=== PATIENT | male | born 1960 | race Caucasian/White ===

== ENCOUNTER → 2016-12-01 | Outpatient (CLI) | payer OTHER ==
[~2016-12-01] MED LIST: ACET-1256 PO; ACET1TAB84 PO; ACT30 PO; AMLO-110 PO; AMT10 PO; ASPI-435 PO; ATR25 PO; BACL10TA PO; CALC-20 PO; CEPH500C2 PO; CLC100 PO; CRS/10 PO; DIPH50TA10 PO; FEXO1TAB49 PO; FLUO20CA35 PO; FLUO40CA8 PO; FLUT0.15 NAE; GABA1CAP4 PO; GLC850 PO; GUAI1TAB55 PO; INDA1TAB3 PO; KETO10TA PO; LACT12LO28 TOP; LIRA18IN INJ; LISI40TA PO; LOSA1TAB38 PO; LRS10 PO; LVNIS30 SQ; LVNIS40 SQ; MELO7.5T5 PO; META1TAB22 PO; METO50TA16 PO; MODA1TAB PO; MRLP17X PO; MULT-506 PO; NASAL SPRAY NAE; NRV5 PO; NZRSHM TOP; ONDA4TAB46 PO; OXYC1TAB3 PO; OXYSR/10 PO; PRED10TA PO; PRT40 PO; RXC5 PO; SENN-65 PO
[2016-12-01 13:14] LABS: ALT/SGPT 29 U/L (12-78); AST/SGOT 18 U/L (15-37); BLOOD UREA NITROGEN 16 mg/dl (7-18); BUN/CREATININE RATIO 15.8 (10-20); CALCIUM 8.7 mg/dl (8.5-10.1); CARBON DIOXIDE 24 mmol/L (21-32); CHLORIDE 105 mmol/L (98-107); CREATININE 0.99 mg/dl (0.60-1.40); GLUCOSE 124 mg/dl (70-99); POTASSIUM 4.2 mmol/L (3.5-5.1); SODIUM 139 mmol/L (136-145)
[2016-12-01 13:16] LABS: ALB/GLOB RATIO 1.1 (0.9-2); ALKALINE PHOSPHATASE 138 U/L (45-117); C-REACTIVE PROTEIN < 0.29 mg/dl (0-0.29)
[2016-12-01 14:28] LABS: BASO % 0.4 %; BASO ABS # 0.02 K/uL (0-0.2); COMPLETE YES; EOS % 1.8 %; HEMATOCRIT 38.2 % (42-52); IG% 0.4 %; LYMPH % 29.4 %; LYMPH ABS # 1.48 K/uL (1.2-3.4); MEAN CELL VOLUME 79.4 fL (80-100); MEAN CORPUSCULAR HEMOGLOBIN 26.2 pg (25-34); MEAN PLATELET VOLUME 11.3 fL (7.4-10.4); MONO % 9.3 %; NEUT % 58.7 %; PLATELET COUNT 202 K/uL (130-400); RED BLOOD COUNT 4.81 M/uL (4.7-6.1); WHITE BLOOD COUNT 5.03 K/uL (4.8-10.8)
== END | disposition home or self-care (01) ==
LOC: C.LAB1850 11:55
PROVIDERS: ATTEND Internal Medicine Infectious Disease
DX: A49.01 Methicillin susceptible Staphylococcus aureus infection, unspecified site (principal); E11.8 Type 2 diabetes mellitus with unspecified complications

== ENCOUNTER → 2017-04-01 | Outpatient (CLI) | payer OTHER ==
[~2017-04-01] MED LIST changes: +AMLO-114 PO; +AMPH1TAB58 PO; +AMPH20CA3 PO; +AMT/25 PO; +ASPCH81X PO; +CALC-393 PO; +DEXT30TA7 PO; +GABA1CAP5 PO; +HYDR25CA PO; +IPRA0.03 NAE; +LACT12CR TOP; +LIRA18IN SC; +LISI-794 PO; +LRS20 PO; +METF-383 PO; +MULTIVITAMIN PO; +ROSU20TA PO
== END | disposition home or self-care (01) ==
LOC: C.RDSM 12:05
PROVIDERS: ATTEND Physical Medicine & Rehabilitation Sports Medicine
DX: Z98.890 Other specified postprocedural states (principal); M25.562 Pain in left knee

== ENCOUNTER 2017-05-10 05:24 | Observation (INO) | payer OTHER ==
[2017-04-22 11:25] VITALS: BMI 37.0
--- NOTE | 2017-04-22 12:03 | PAT Medication Instructions ---
Service Date Apr 22, 2017. Current Home Medication List Acetaminophen (Tylenol), 1,000 MG PO DIRECTED PRN for Headache Acetaminophen (Tylenol Arthritis Ext Rel), 1,300 MG PO HS PRN for RN Amitriptyline HCl (Amitriptyline HCl), 20 MG PO HS Amlodipine (Norvasc), 5 MG PO QPM Aspirin (Aspirin 81), 81 MG PO HS Baclofen (Lioresal), 30 MG PO HS Calcium Carbonate-Vitamin D (Calcium 600 + D), 1 TAB PO QAM Cephalexin Monohydrate (Keflex), 500 MG PO QAM Diphenhydramine Hcl (Sleep) (Diphenhydramine Hcl), 1 TAB PO HS PRN for PRN Fexofenadine Hcl (Carmen Allergy), 180 MG PO QPM Fluoxetine (Prozac), 20 MG PO QAM Fluoxetine (Prozac), 40 MG PO NOON Fluticasone Propionate (Nasal) (Flonase Allergy Relief), 2 SPRAYS LULU HS Gabapentin (Gabapentin), 300 MG PO TID Indapamide (Lozol), 1.25 MG PO QPM Ketoconazole (Ketoconazole), 1 APPL TOP 2XWK Lactic Acid (Ammonium Lactate) (Ammonium Lactate), 1 DOSE TOP QAM PRN for RN Liraglutide (Victoza), 1.2 MG INJ QAM Lisinopril (Zestril), 40 MG PO HS Meloxicam (Mobic), 7.5 MG PO AM/HS Metaxalone (Skelaxin), 800 MG PO QAM Metaxalone (Skelaxin), 1,600 MG PO NOON Metformin Hcl (Glucophage *), 850 MG PO AM/NOON Metoprolol Tartrate (Lopressor) (Lopressor), 50 MG PO AM/NOON Modafinil (Provigil), 200 MG PO AM/NOON Multivitamin (Multivitamin), 1 TAB PO QAM Ondansetron Hcl (Zofran), 4 MG PO Q6H PRN for Nausea Oxycodone HCl (Oxycontin), 10 MG PO AM/HS Oxycodone Ir (Roxicodone Ir), 5-10 MG PO QID PRN for RN Pioglitazone (Actos), 30 MG PO QAM Rosuvastatin Calcium (Crestor), 10 MG PO QPM Senna/Docusate Sod (Senokot S), 1 TAB PO QPM [Nasal [place]], 2 SPRAYS LULU TIDM Medication Instructions For Your Scheduled Surgery - Hold the following medications 48 hours prior to surgery: Metformin Hcl (Glucophage *), 850 MG PO AM/NOON - Hold the following medications 24 hours prior to surgery: Lisinopril (Zestril), 40 MG PO HS Ketoconazole (Ketoconazole), 1 APPL TOP 2XWK Lactic Acid (Ammonium Lactate) (Ammonium Lactate), 1 DOSE TOP QAM PRN - Hold the following medications the morning of surgery: Metaxalone (Skelaxin), 800 MG PO QAM Modafinil (Provigil), 200 MG PO AM/NOON Multivitamin (Multivitamin), 1 TAB PO QAM Pioglitazone (Actos), 30 MG PO QAM Meloxicam (Mobic), 7.5 MG PO AM/HS (otherwise okay to continue per surgeon) Calcium Carbonate-Vitamin D (Calcium 600 + D), 1 TAB PO QAM Cephalexin Monohydrate (Keflex), 500 MG PO QAM - Take the following medications the morning of surgery with a sip of water OTHERWISE NOTHING TO EAT OR DRINK AFTER MIDNIGHT: [Nasal [place]], 2 SPRAYS LULU TIDM Gabapentin (Gabapentin), 300 MG PO TID Acetaminophen (Tylenol), 1,000 MG PO DIRECTED PRN (may take if needed up to 4 hours prior to surgery) Acetaminophen (Tylenol Arthritis Ext Rel), 1,300 MG PO HS PRN (may take if needed up to 4 hours prior to surgery) Oxycodone HCl (Oxycontin), 10 MG PO AM/HS (may take if needed up to 4 hours prior to surgery) Oxycodone Ir (Roxicodone Ir), 5-10 MG PO QID PRN (may take if needed up to 4 hours prior to surgery) Liraglutide (Victoza), 1.2 MG INJ QAM Fluoxetine (Prozac), 20 MG PO QAM Metoprolol Tartrate (Lopressor) (Lopressor), 50 MG PO AM/NOON Ondansetron Hcl (Zofran), 4 MG PO Q6H PRN for Nausea - Take the following medications as scheduled the night before surgery: [Nasal [place]], 2 SPRAYS LULU TIDM Amlodipine (Norvasc), 5 MG PO QPM Aspirin (Aspirin 81), 81 MG PO HS Baclofen (Lioresal), 30 MG PO HS Gabapentin (Gabapentin), 300 MG PO TID Rosuvastatin Calcium (Crestor), 10 MG PO QPM Senna/Docusate Sod (Senokot S), 1 TAB PO QPM Acetaminophen (Tylenol), 1,000 MG PO DIRECTED PRN Acetaminophen (Tylenol Arthritis Ext Rel), 1,300 MG PO HS PRN Oxycodone HCl (Oxycontin), 10 MG PO AM/HS Oxycodone Ir (Roxicodone Ir), 5-10 MG PO QID PRN Diphenhydramine Hcl (Sleep) (Diphenhydramine Hcl), 1 TAB PO HS PRN for PRN Fexofenadine Hcl (Carmen Allergy), 180 MG PO QPM Amitriptyline HCl (Amitriptyline HCl), 20 MG PO HS Indapamide (Lozol), 1.25 MG PO QPM Fluticasone Propionate (Nasal) (Flonase Allergy Relief), 2 SPRAYS LULU HS Meloxicam (Mobic), 7.5 MG PO AM/HS If you have any questions please call us at [phone] or [phone] or [phone]
[2017-04-22 12:27] LABS: BASO % 0.2 %; BASO ABS # 0.01 K/uL (0-0.2); COMPLETE YES; EOS % 1.8 %; HEMATOCRIT 38.7 % (42-52); IG% 0.2 %; LYMPH % 24.7 %; LYMPH ABS # 1.12 K/uL (1.2-3.4); MEAN CELL VOLUME 84.7 fL (80-100); MEAN CORPUSCULAR HEMOGLOBIN 26.7 pg (25-34); MEAN CORPUSCULAR HGB CONC 31.5 g/dl (32-36); MEAN PLATELET VOLUME 11.2 fL (7.4-10.4); MONO % 8.6 %; NEUT % 64.5 %; PLATELET COUNT 164 K/uL (130-400); RED BLOOD COUNT 4.57 M/uL (4.7-6.1); WHITE BLOOD COUNT 4.54 K/uL (4.8-10.8)
[2017-04-22 12:43] LABS: BUN/CREATININE RATIO 15.8 (10-20); CALCIUM 9.1 mg/dl (8.5-10.1); CREATININE 1.2 mg/dl (0.60-1.40); POTASSIUM 4.6 mmol/L (3.5-5.1)
--- NOTE | 2017-05-05 15:17 | History and Physical ---
History & Physical Date & Time of Service: May 05, 2017 at 15:02 Chief Complaint: Left Tibia Retained Chary Primary Care Physician: Rich Otoole III, M.D. History of Present Illness Source: patient The patient is a pleasant 56-year-old male who has been followed by Dr. Rodriguez for his left knee. He is currently treated for DJD of his left knee. He does have a history of septic arthritis in that left knee in which she underwent an irrigation and debridement for an 2016. Prior to that he had undergone a high tibial osteotomy and subsequent postoperative infection of his left lower extremity. Due to his history of septic arthritis and having the retained hardware he's been on chronic antibiotics for prophylaxis. Currently he is on Keflex daily. He was told by infectious disease that he would need to be on antibiotics daily as long as the hardware was in place. He is interested in the future if possibly undergoing a total knee arthroplasty of his left knee. At this time he is interested in removing the hardware of his left knee. He also has been treated in the past for right knee DJD with corticosteroid injections and viscosupplementation. He denies any significant pain in his left knee or limitations with range of motion currently. He would like to pursue the hardware removal to get off the chronic antibiotics and also in preparation for a total knee arthroplasty if ever needed in the future. He is scheduled for hardware removal of his left knee with Dr. Rodriguez on 2016 at the [facility]. Past Medical/Surgical History Medical Problems: (1) Anxiety Status: Chronic (2) Diabetes Status: Chronic (3) Hyperlipidemia Status: Chronic (4) Hypertension Status: Chronic (5) Osteoporosis Status: Chronic (6) Sleep apnea - with CPAP machine Status: Chronic 7. Osteoarthritis 8. Spine problems with his neck, upper back, and lower back. 9. Ichthyosis Surgical Problems: (1) History of arthroplasty Status: Resolved (2) History of carpal tunnel release Status: Resolved (3) History of knee surgery - s/p high tibial osteotomy left knee, s/p I&D left knee for infection Status: Resolved (4) Status post hip surgery Status: Resolved Family History FH: diabetes mellitus High cholesterol Social History Smoking Status: Former Smoker Alcohol Use: occasionally (2 drinks per week) Drug Use: none Marital Status: Housing status: lives alone, other Occupational Status: disabled Immunizations History of Influenza Vaccine: Yes Influenza Vaccine Date: Aug 03, 2012 History of Tetanus Vaccine?: Yes Tetanus Immunization Date: March 02, 2006 History of Pneumococcal: No History of Hepatitis B Vaccine: Unknown Hepatitis Immunization Date: March 02, 2000 Multi-Drug Resistant Organisms History of MDRO: No Allergies Coded Allergies: Simvastatin (Verified Allergy, Unknown, MUSCLE WEAKNESS,TINGLING, 04/22/17) Home Medications Scheduled Amitriptyline HCl (Amitriptyline HCl), 20 MG PO HS Amlodipine (Norvasc), 5 MG PO QPM Aspirin (Aspirin 81), 81 MG PO HS Baclofen (Lioresal), 30 MG PO HS Calcium Carbonate-Vitamin D (Calcium 600 + D), 1 TAB PO QAM Cephalexin Monohydrate (Keflex), 500 MG PO QAM Fexofenadine Hcl (Carmen Allergy), 180 MG PO QPM Fluoxetine (Prozac), 20 MG PO QAM Fluoxetine (Prozac), 40 MG PO NOON Fluticasone Propionate (Nasal) (Flonase Allergy Relief), 2 SPRAYS LULU HS Gabapentin (Gabapentin), 300 MG PO TID Indapamide (Lozol), 1.25 MG PO QPM Ketoconazole (Ketoconazole), 1 APPL TOP 2XWK Liraglutide (Victoza), 1.2 MG INJ QAM Lisinopril (Zestril), 40 MG PO HS Meloxicam (Mobic), 7.5 MG PO AM/HS Metaxalone (Skelaxin), 800 MG PO QAM Metaxalone (Skelaxin), 1,600 MG PO NOON Metformin Hcl (Glucophage *), 850 MG PO AM/NOON Metoprolol Tartrate (Lopressor) (Lopressor), 50 MG PO AM/NOON Modafinil (Provigil), 200 MG PO AM/NOON Multivitamin (Multivitamin), 1 TAB PO QAM Oxycodone HCl (Oxycontin), 10 MG PO AM/HS Pioglitazone (Actos), 30 MG PO QAM Rosuvastatin Calcium (Crestor), 10 MG PO QPM Senna/Docusate Sod (Senokot S), 1 TAB PO QPM [Nasal [place]], 2 SPRAYS LULU TIDM Scheduled PRN Acetaminophen (Tylenol), 1,000 MG PO DIRECTED PRN for Headache Acetaminophen (Tylenol Arthritis Ext Rel), 1,300 MG PO HS PRN for RN Diphenhydramine Hcl (Sleep) (Diphenhydramine Hcl), 1 TAB PO HS PRN for PRN Lactic Acid (Ammonium Lactate) (Ammonium Lactate), 1 DOSE TOP QAM PRN for RN Ondansetron Hcl (Zofran), 4 MG PO Q6H PRN for Nausea Oxycodone Ir (Roxicodone Ir), 5-10 MG PO QID PRN for program director group work of Systems Constitutional: No fever, No chills, No weight loss, No fatigue Eyes: No worsening of vision, No redness ENT: No hearing loss, No sore throat, No tinnitus Respiratory: No cough, No sputum, No wheezing, No shortness of breath, No dyspnea on exertion Cardiovascular: No chest pain, No edema, No palpitations Abdomen: No pain, No nausea, No vomiting, No diarrhea, No constipation Musculoskeletal: + joint pain, No swelling, No calf pain Genitourinary - Male: No hematuria, No dysuria, No urinary frequency, No urinary urgency, No urinary retention Neurologic: No memory loss, No numbness/tingling, No balance problems Psychiatric: + anxiety, No depression symptoms Hematologic / Lymphatic: No abnormal bleeding/bruising, No clotting problems Integumentary: + problem reported (ichthyosis), No rash, No itch Allergic / Immunologic: No environmental allergies, No seasonal allergies, No poor healing Physical Exam General Appearance: WD/WN, no apparent distress Head: normocephalic, atraumatic Eyes: normal inspection, PERRL, EOMI, sclerae normal ENT: normal ENT inspection, hearing grossly normal, TMs normal, pharynx normal Neck: supple, no adenopathy, no carotid bruits, trachea midline Respiratory/Chest: chest non-tender, lungs clear, normal breath sounds, no respiratory distress, no accessory muscle use Cardiovascular: regular rate, rhythm, no edema, no murmur, normal peripheral pulses Abdomen/GI: normal bowel sounds, non tender, soft Back: normal range of motion Extremities/Musculoskelatal: normal inspection, no calf tenderness, normal capillary refill, no pedal edema, normal range of motion, non-tender, + pertinent finding (he is able to independently do a straight leg raise of his left lower extremity. There is no effusion or tenderness about his knee. His anterior medial left knee incision is well-healed. Ligamentously, the knee is stable. Range of motion of his left knee is 0/5/125.) Neurologic/Psych: no motor/sensory deficits, alert, normal mood/affect, oriented x 3 Skin: normal color, warm/dry, no rash, + pertinent finding (some dry, scaly skin from ichthyosis present. Surgical site uninvolved.) Diagnostics Laboratory Results 04/22/17 12:02 Red Blood Count 4.57, Mean Corpuscular Volume 84.7, Mean Corpuscular Hemoglobin 26.7, Mean Corpuscular Hemoglobin Concent 31.5, Mean Platelet Volume 11.2, Neutrophils (%) (Auto) 64.5, Lymphocytes (%) (Auto) 24.7, Monocytes (%) (Auto) 8.6, Eosinophils (%) (Auto) 1.8, Basophils (%) (Auto) 0.2, Neutrophils # (Auto) 2.93, Lymphocytes # (Auto) 1.12, Monocytes # (Auto) 0.39, Eosinophils # (Auto) 0.08, Basophils # (Auto) 0.01 04/22/17 12:02 Test 04/22/17 12:02 White Blood Count 4.54 K/uL (4.8-10.8) Red Blood Count 4.57 M/uL (4.7-6.1) Hemoglobin 12.2 g/dL (14.0-18.0) Hematocrit 38.7 % (42-52) Mean Corpuscular Volume 84.7 fL (80-100) Mean Corpuscular Hemoglobin 26.7 pg (25-34) Mean Corpuscular Hemoglobin Concent 31.5 g/dl (32-36) Platelet Count 164 K/uL (130-400) Mean Platelet Volume 11.2 fL (7.4-10.4) Neutrophils (%) (Auto) 64.5 % Lymphocytes (%) (Auto) 24.7 % Monocytes (%) (Auto) 8.6 % Eosinophils (%) (Auto) 1.8 % Basophils (%) (Auto) 0.2 % Neutrophils # (Auto) 2.93 K/uL (1.4-6.5) Lymphocytes # (Auto) 1.12 K/uL (1.2-3.4) Monocytes # (Auto) 0.39 K/uL (0.11-0.59) Eosinophils # (Auto) 0.08 K/uL (0-0.5) Basophils # (Auto) 0.01 K/uL (0-0.2) RDW Standard Deviation 45.1 fL (36.4-46.3) RDW Coefficient of Variation 14.5 % (11.5-14.5) Immature Granulocyte % (Auto) 0.2 % Immature Granulocyte # (Auto) 0.01 K/uL (0.00-0.02) Anion Gap 7.0 mmol/L (3-11) Est Creatinine Clear Calc Drug Dose 80.6 ml/min Estimated GFR () 77.9 Estimated GFR (Non- 67.2 BUN/Creatinine Ratio 15.8 (10-20) Calcium Level 9.1 mg/dl (8.5-10.1) EKG Normal sinus rhythm, possible left atrial enlargement-EKG done on 06/30/2016 Impression Assessment and Plan Assessment: Status post high tibial osteotomy with postoperative infection and septic arthritis of the left knee, retained hardware left knee. Plan: Patient would like to proceed with hardware removal of his left knee. He is currently scheduled with Dr. Rodriguez on 05/10/2017 for hardware removal of his left knee. He will be admitted postoperatively for 1 night stay. Risks and complications were explained to the patient and include but are not limited to infection, pain, bleeding, scarring, nerve and blood vessel damage, incomplete relief of symptoms, weakness, stiffness, wound problems, hardware failure, loosening, fracture, inability to get all of the hardware out, blood clots, embolisms, heart attack, stroke, . We'll take intraoperative cultures and treat with antibiotics appropriately pending those culture results postoperatively. We will hold preoperative antibiotics and give one instructed by Dr. Rodriguez. We will allow him to partial weight-bear on his left lower extremity after surgery. He will bring his [place] crutches to the hospital as he was given a prescription for a new ones at a preoperative appointment. We will use Lovenox 30 mg subcutaneous twice a day 14 days postoperatively for DVT prophylaxis. He will follow up with Dr. Rodriguez 10-14 days after surgery for suture removal. We will give pain medication appropriately upon his discharge from the hospital. We will pay close attention to his medication regimen during his inpatient stay. He will most likely be able to return home after surgery although he may require [facility] home [facility]. If he is unable to return home he will need a inpatient rehabilitation stay. All questions were answered and he was informed to call with any further problems, questions, or concerns. Level of Care Med/Surg Resuscitation Status FULL RESUSCITATION VTE Prophylaxis Given or contraindicated: Enoxaparin (Lovenox)SQ, T.E.D. Stockings
[~2017-05-10] VITALS: Ht 170.2 cm; Wt 102.8 kg
[2017-05-10] VITALS (9 sets, daily range): BP systolic 121–145; BP diastolic 65–90; PULSE 67–89; TEMP 36.4–36.8; O2SAT 93–97; Ht 170.2 cm; Wt 102.8 kg
[~2017-05-10 05:24] MED LIST changes: -AMLO-114 PO; -AMPH1TAB58 PO; -AMPH20CA3 PO; -AMT/25 PO; -ASPCH81X PO; -ATR25 PO; -CALC-393 PO; -CLC100 PO; -DEXT30TA7 PO; -GABA1CAP5 PO; -GUAI1TAB55 PO; -HYDR25CA PO; -IPRA0.03 NAE; -KETO10TA PO; -LACT12CR TOP; -LIRA18IN SC; -LISI-794 PO; -LOSA1TAB38 PO; -LRS10 PO; -LRS20 PO; -LVNIS30 SQ; -LVNIS40 SQ; -METF-383 PO; -MRLP17X PO; -MULTIVITAMIN PO; -NRV5 PO; -PRED10TA PO; -PRT40 PO; -ROSU20TA PO; -RXC5 PO
[2017-05-10] MEDS ORDERED: LACTATED RINGER'S 1000ML 1,000 ML IV SCH ×2 (06:00)
[2017-05-10] MEDS ORDERED: LACTATED RINGER'S 1000ML 500 ML IV ONE (06:00)
[2017-05-10] MEDS ORDERED: CEFAZOLIN IV 2,000 MG/60 ML D5W IV ONE ×3 (06:00→16:00)
[2017-05-10] MEDS ORDERED: BUPIVACAINE 0.5 % 5 MG/1 ML PF 10ML VIAL ONE (06:22)
[2017-05-10] MEDS ORDERED: BUPIVACAINE 0.25% 30 ML VIAL ONE (06:22)
[2017-05-10] MEDS ORDERED: MIDAZOLAM HCL 1 MG/ML 2ML VIAL ONE ×2 (06:37)
[2017-05-10] MEDS ORDERED: FENTANYL CITRATE INJ 50 MCG/1 ML 2 ML VIAL ONE (06:38)
--- NOTE | 2017-05-10 06:45 | History & Physical Bridge Note ---
H&P Re-Evaluation Bridge Note: I have examined the patient, reviewed the History & Physical and in the interval since the performance of the History & Physical I have noted the following changes of clinical significance: No changes noted
[2017-05-10] MEDS ORDERED: POVIDONE-IODINE OP SOLN 30 ML BTL ONE (06:50)
[2017-05-10] MEDS ORDERED: LIDOCAINE/EPINEPHRINE 1% 20 ML VIAL ONE (07:08)
[2017-05-10] MEDS ORDERED: BUPIVACAINE/EPINEPHRINE 0.5% MPF 1:200,000 10 ML VIAL ONE ×2 (07:09→07:10)
[2017-05-10] MEDS ORDERED: FENTANYL CITRATE INJ 50 MCG/1 ML 2 ML VIAL IV PRN (08:30)
[2017-05-10] MEDS ORDERED: ATROPINE SULFATE 0.1 MG/ML 5ML SYR IV PRN (08:30)
[2017-05-10] MEDS ORDERED: ONDANSETRON INJ 2 MG/ML 2 ML VIAL IV PRN ×2 (08:30→09:15)
[2017-05-10] MEDS ORDERED: EpHEDrine SULFATE INJ 50 MG/ML AMP IV PRN (08:30)
--- NOTE | 2017-05-10 08:58 | DIAGNOSTIC IMAGING REPORT ---
LEFT KNEE 1 OR 2 VIEWS CLINICAL HISTORY: LT HARDWARE REMOVAL hardware removal COMPARISON: None. DISCUSSION: Anatomic alignment status post hardware removal. No significant residual metallic components IMPRESSION: Hardware removal of left knee. Electronically signed by: Osman Fontaine M.D. 05/10/2017 8:56 AM Dictated Date/Time: 05/10/2017 8:56 AM
--- NOTE | 2017-05-10 09:12 | [facility] Operative Report ---
Operative Report Operative Date May 10, 2017. Pre-Operative Diagnosis Status post high tibial osteotomy with postoperative infection and septic arthrtis of the left knee, retained hardware Post-Operative Diagnosis same Procedure(s) Performed Left Tibial plate Removal Surgeon Dr. Fercho Rodriguez Cemetery Warden Surgeon(s) Tamica Hoskins PA-c and Dr. Maya Chinchilla(fellow) Estimated Blood Loss 100 ml Findings Healed osteotomy Specimens Microbiology #1 Left tibial plate-gram stain, anaerobic aerobic and routine culture and sentivity out of room at 0748 #2 Left tibial bone- gram stain, anaerobic, aerobic and routine culturea nd sensitivity out of room at 0805 #3 Left tibial lateral hardware, gram stain, anaerobic, aerobic and routine culturea nd sensitivity out of room at 0835 hold all periprosthetic cultures for 2 week and do not combine . lab informed of request at 0825 periprosthetic Specimen A: Explanted hardware, Left tibial plate and screws Drains 1 Anesthesia spinal with IV sedation and peripheral nerve block Complication(s) None Indications The patient's 56-year-old male who is status post a left knee proximal tibial osteotomy. This was initially complicated with nonunion and later with infection and delayed wound healing. This required revision of the plate and bone grafting after the infection had been cured. He subsequently did well until last year when he developed spontaneous septic arthritis of his left knee. He has been treated for that with a irrigation debridement and is on chronic antibiotic therapy. He is taken back to surgery for elective removal of the tibial plate and screws in an effort to remove any further sources of infection and also prepare for potential total knee arthroplasty in the future Description of Procedure The patient was identified as Rich CARSON. He identified the operative site the left knee. I marked with my initials. Surgical timeout was performed. He received a preoperative dose of intravenous antibiotics. He was taken to the operating room positioned supine on the OR table with a tourniquet on the left thigh. Examination under anesthesia revealed trace MCL laxity. The knee was otherwise stable he did not have an effusion. There was a large anterior incision present. Range of motion was from 0-125. He had some minor violations of the skin secondary to his scaly skin condition. The left leg was prepped and draped in the usual sterile fashion fluoroscopic guidance was utilized as necessary. DVT prophylaxis intraoperatively with foot pumps postoperatively with early mobility and Lovenox. The procedure began by exsanguinating the limb with the Esmarch tourniquet inflated to 250 mmHg. The prior midline incision was utilized beginning at about the midportion of the patella and extending to the distal portion of the tibial plate. The patellar tendon was identified proximally and a incision was made just over the medial border of the patella and medial patellar tendon and then full-thickness down onto the proximal tibia. The's skin and subcutaneous tissues which were extensively scarred were elevated up in 1 large flap medially. The plate was identified and dissected out. Cultures were obtained on the superficial surface of the plate. The screws were easily removed followed by the plate. Separate culture was taken of the screw holes and of the deep surface of the plate bone interface. Screw holes were curettaged and the area thoroughly debrided with a rongeur and curet. Some fibrinous material was noted however there is no purulence the bone appeared to be completely healed there is no notably soft bone. Accessory incision was made under fluoroscopic guidance laterally. The skin was incised blunt dissection performed to the subcutaneous tissues. The other screw laterally was identified deep to the anterior compartment fascia widely dissected out and then easily removed with its washer. The same type of debridement was performed laterally involving the screw hole. The screw holes and plate area were then irrigated with Betadine lavage. The tourniquet was let down after approximately 50 minutes of inflation. The lateral incision was closed with 2-0 Vicryl and 3-0 nylon on the skin. A drain was inserted deep on the medial side after obtaining hemostasis using electrocautery. The deep space which was an extensively dense scar tissue layer was closed with interrupted 0 Vicryls. The skin was then closed with 20 and 3-0 nylon sutures using 4 near near far type stitches and simple sutures as appropriate. The leg was cleaned with wet and dry sponges a soft sterile dressing was applied along the full length Darrin wrap. Patient was awakened from anesthesia without difficulty taken to the recovery room in stable condition. A culture was also obtained of the lateral screw hole. All cultures were sent for periprosthetic joint culture hold for 2 weeks for P acnes Gram stain aerobic and anaerobic cultures. Specimens are as mentioned above counts are correct in the case. Blood loss was approximately 100 mL. At the conclusion operation I spoke to the patient's daughter and informed her of my findings. The patient will be admitted to the hospital and placed on intravenous antibiotics. Cultures will be followed. He will continue his preoperative complex medication regimen. DVT prophylaxis with Lovenox. He can weight-bear partially less than 50% and have range of motion as tolerated. He will use [place] crutches. Infectious diseases will be consulted. I attest to the content of the Intraoperative Record and any orders documented therein. Any exceptions are noted below.
[2017-05-10] MEDS ORDERED: TRAMADOL HCL 50 MG TAB PO PRN (09:15)
[2017-05-10] MEDS ORDERED: MAGNESIUM HYDROXIDE SUSP 30 ML UDC PO PRN (09:15)
[2017-05-10] MEDS ORDERED: OXYCODONE HCL IR 5 MG TAB (IMMEDIATE RELEASE) PO PRN (09:15)
[2017-05-10] MEDS ORDERED: BISACODYL 10 MG SUPP PR PRN (09:15)
[2017-05-10] MEDS ORDERED: MoRPHine SULFATE 2 MG/ML CARP IV PRN (09:15)
[2017-05-10] MEDS ORDERED: TAMSULOSIN HCL 0.4 MG CAP PO PRN (09:15)
[2017-05-10] MEDS ORDERED: KETOCONAZOLE TOP SCH (09:15)
[2017-05-10] MEDS ORDERED: SOD PHOSPHATE/SOD BIPHOSPHATE ENEMA 132 ML BTL PR PRN (09:15)
[2017-05-10] MEDS ORDERED: AMMONIUM LACTATE 12% LOTION 225 GM BTL EXT PRN (09:15)
--- NOTE | 2017-05-10 11:16 | Anesthesiology Progress Note ---
Anesthesia Post Op Note Date & Time May 10, 2017 at 11:16 Vital Signs Pain Intensity: 0 Vital Signs Past 12 Hours Date Time Temp Pulse Resp B/P (MAP) Pulse Ox O2 Delivery O2 Flow Rate FiO2 05/10/17 10:57 76 12 95 05/10/17 10:57 76 12 05/10/17 10:56 121/76 05/10/17 10:56 36.2 78 20 121/76 95 Nasal Cannula 3 05/10/17 10:52 78 17 05/10/17 10:52 78 17 97 05/10/17 10:51 122/86 05/10/17 10:47 75 13 96 05/10/17 10:47 77 13 05/10/17 10:46 129/80 05/10/17 10:42 75 19 05/10/17 10:42 75 19 96 05/10/17 10:41 130/78 05/10/17 10:37 80 12 05/10/17 10:37 80 12 96 05/10/17 10:36 121/80 05/10/17 10:32 78 14 05/10/17 10:32 79 14 95 05/10/17 10:31 119/82 05/10/17 10:27 79 14 97 05/10/17 10:27 79 14 05/10/17 10:26 150/92 05/10/17 10:22 76 9 05/10/17 10:22 78 9 94 05/10/17 10:21 116/80 05/10/17 10:17 74 12 05/10/17 10:17 74 12 96 05/10/17 10:16 138/89 05/10/17 10:12 74 11 96 05/10/17 10:12 73 11 05/10/17 10:11 136/83 05/10/17 10:07 73 10 05/10/17 10:07 71 10 97 05/10/17 10:06 138/86 05/10/17 10:02 71 7 97 05/10/17 10:02 70 7 05/10/17 10:01 127/80 05/10/17 09:57 72 15 98 05/10/17 09:57 70 15 05/10/17 09:56 140/84 05/10/17 09:52 70 10 99 05/10/17 09:52 70 10 05/10/17 09:51 142/96 05/10/17 09:47 71 11 05/10/17 09:47 71 11 100 05/10/17 09:46 143/87 05/10/17 09:42 68 9 05/10/17 09:42 68 9 100 05/10/17 09:41 154/88 05/10/17 09:37 69 13 05/10/17 09:37 71 13 100 05/10/17 09:36 147/85 05/10/17 09:32 71 12 100 05/10/17 09:32 71 12 05/10/17 09:31 141/89 05/10/17 09:27 69 11 05/10/17 09:27 69 11 100 05/10/17 09:26 172/89 05/10/17 09:22 70 14 100 05/10/17 09:22 69 14 05/10/17 09:21 143/83 05/10/17 09:18 146/77 05/10/17 09:17 36 68 12 146/77 96 Mask 10 05/10/17 09:17 70 10 05/10/17 09:17 68 10 94 05/10/17 06:02 36.5 72 20 132/83 (99) 97 Room Air Notes Mental Status: alert / awake / arousable, participated in evaluation Pt Amnestic to Procedure: Yes Nausea / Vomiting: adequately controlled Pain: adequately controlled Airway Patency, RR, SpO2: stable & adequate BP & HR: stable & adequate Hydration State: stable & adequate Neuraxial Anesthesia: was administered, sensory block is resolving Anesthetic Complications: no major complications apparent
[2017-05-10] MEDS ORDERED: IV FLUIDS COMPLETED PRN (12:30)
--- NOTE | 2017-05-10 12:34 | Medical Consult ---
Consultation Date of Consultation: May 10, 2017. Attending Physician: Fercho Rodriguez M.D. Reason for Consultation: Post op medical assessment History of Present Illness 56 y/o M Hx HTN, HPL, DM 2, NARINDER, DJD - multiple orthopedic procedures. Pt has hardware in his L knee which had become infected with Staph. He is currently post-op hardware removal. He is recovering well and able to mobilize. He denies CP, SOB, N/V or light headedness. He denies excessive pain at the surgical site. The pt requires chronic antibiotic suppression therapy. Past Medical/Surgical History 1) HTN 2) HPL 3) DM 2 4) Obese 5) DJD 6) NARINDER - CPAP Surgical: Multiple L knee surgeries Hip surgery Carpal tunnel Family History FH: diabetes mellitus High cholesterol Noncontributory Social History Smoking Status: Former Smoker Alcohol Use: occasionally (2 drinks per week) Drug Use: none Marital Status: Housing Status: lives alone, other Occupation Status: disabled Allergies Coded Allergies: Simvastatin (Verified Allergy, Unknown, MUSCLE WEAKNESS,TINGLING, 05/10/17) Current Inpatient Medications Current Inpatient Medications Medications (Trade) Dose Ordered Sig/Geovanni Route Start Time Stop Time Status Last Admin Dose Admin Lactated Ringer's 1,000 ml @ 0 mls/hr Q0M IV 05/10/17 06:00 05/10/17 23:59 Lactated Ringer's 1,000 ml @ 15 mls/hr Q24H IV 05/10/17 06:00 05/11/17 05:59 05/10/17 06:29 15 MLS/HR Fentanyl Citrate (Fentanyl Inj) 25 mcg Q5M PRN IV 05/10/17 08:30 05/10/17 13:30 Ondansetron HCl (Zofran Inj) 4 mg ONE PRN IV 05/10/17 08:30 05/10/17 13:30 Ephedrine Sulfate (EpHEDrine SULFATE INJ) 5 mg Q5M PRN IV 05/10/17 08:30 05/10/17 13:30 Atropine Sulfate (Atropine Sulfate 0.1MG/Ml Inj) 0.5 mg Q1M PRN IV 05/10/17 08:30 05/10/17 13:30 Enoxaparin Sodium (Lovenox Inj) 30 mg Q12H SQ 05/10/17 22:00 06/07/17 21:59 UNV Sodium Chloride 1,000 ml @ 100 mls/hr Q10H IV 05/10/17 09:13 05/11/17 09:12 UNV Oxycodone HCl (Roxicodone Immediate Rel Tab) 1 TABLET FOR PAIN RATING... Q4H PRN PO 05/10/17 09:15 05/24/17 09:14 UNV Morphine Sulfate (MoRPHine SULFATE INJ) 2 mg Q2H PRN IV 05/10/17 09:15 05/24/17 09:14 UNV Acetaminophen (Tylenol Tab) 1,000 mg Q8H PO 05/10/17 09:15 06/09/17 09:14 UNV Magnesium Hydroxide (Milk Of Magnesia Susp) 30 ml Q6H PRN PO 05/10/17 09:15 06/09/17 09:14 UNV Bisacodyl (Dulcolax Supp) 10 mg DAILY PRN [place] 05/10/17 09:15 06/09/17 09:14 UNV Sodium Biphosphate/ Sodium Phosphate (Fleet Enema) 132 ml DAILY PRN [place] 05/10/17 09:15 06/09/17 09:14 UNV Docusate Sodium (coLACE CAP) 100 mg BID PO 05/10/17 21:00 06/09/17 20:59 UNV Multivitamins (Multivitamin Tab) 1 tab QAM PO 05/11/17 09:00 06/10/17 08:59 UNV Ondansetron HCl (Zofran Inj) 4 mg Q6H PRN IV 05/10/17 09:15 06/09/17 09:14 UNV Tamsulosin HCl (Flomax Cap) 0.4 mg QAM PRN PO 05/10/17 09:15 06/09/17 09:14 UNV Tramadol HCl (Ultram Tab) 1 tablet for pain rating... Q4H PRN PO 05/10/17 09:15 06/09/17 09:14 UNV Ketorolac Tromethamine (Toradol Inj) 30 mg Q6H IV. 05/10/17 09:15 05/12/17 09:14 UNV Cefazolin Sodium (Ancef 2000mg/60 ml D5W) 2,000 mg Q8H ONCE IV 05/10/17 09:15 05/10/17 09:16 UNV Amitriptyline HCl (Elavil Tab) 20 mg DAILY@2100 PO 05/10/17 21:00 06/09/17 20:59 Amlodipine Besylate (Norvasc Tab) 5 mg DAILY@1700 PO 05/10/17 17:00 06/09/17 16:59 UNV Aspirin (Ecotrin Tab) 81 mg HS PO 05/10/17 21:00 06/09/17 20:59 Baclofen (Lioresal Tab) 60 mg HS PO 05/10/17 09:15 06/09/17 09:14 UNV Fexofenadine HCl (Carmen Tab) 180 mg DAILY@0900,1700 PO 05/10/17 09:15 06/09/17 09:14 UNV Fluoxetine HCl (Prozac Cap) 20 mg QAM PO 05/11/17 09:00 06/10/17 08:59 UNV Fluoxetine HCl (Prozac Cap) 40 mg DAILY@1200 PO 05/10/17 12:00 06/09/17 11:59 UNV Fluticasone Propionate (Flonase Nasal [place]) 2 sprays HS LULU 05/10/17 21:00 06/09/17 20:59 UNV Gabapentin (Neurontin Cap) 400 mg TID@0900,1200,1700 PO 05/10/17 09:15 06/09/17 09:14 UNV Indapamide (Lozol Tab) 1.25 mg QPM PO 05/10/17 21:00 06/09/17 20:59 UNV Ammonium Lactate (Lac-Hydrin) 1 appl QAM PRN EXT 05/10/17 09:15 06/09/17 09:14 Lisinopril (Zestril Tab) 40 mg HS PO 05/10/17 21:00 06/09/17 20:59 UNV Metaxalone (Skelaxin Tab) 1,600 mg DAILY@1200 PO 05/10/17 12:00 06/09/17 11:59 UNV Metaxalone (Skelaxin Tab) 800 mg QAM PO 05/11/17 09:00 06/10/17 08:59 UNV Metformin HCl (Glucophage Tab) 850 mg BID@0800,1100 PO 05/11/17 08:00 06/10/17 07:59 UNV Metoprolol Tartrate (Lopressor Tab) 50 mg DAILY@0900,1200 PO 05/10/17 09:15 06/09/17 09:14 Modafinil (proVIGIL TAB) 200 mg BID@0900,1200 PO 05/11/17 09:00 06/10/17 08:59 UNV Oxycodone HCl (Oxycontin Tab) 10 mg BID PO 05/10/17 21:00 05/24/17 20:59 Rosuvastatin Calcium (Crestor Tab) 10 mg DAILY@1700 PO 05/10/17 17:00 06/09/17 16:59 UNV Calcium/Vitamin D (Caltrate Plus Tab) 1 tab QAM PO 05/11/17 09:00 06/10/17 08:59 UNV Non-Formulary Medication (Ketoconazole ) 1 appl 2XWK TOP 05/10/17 09:15 06/09/17 09:14 UNV Pioglitazone HCl (ACTos TAB) 30 mg QAM PO 05/11/17 09:00 06/10/17 08:59 UNV Ipratropium [place] (Atrovent Hfa Inhaler) 2 puffs TID@0800,1200,1700 INH 05/10/17 12:00 06/09/17 11:59 UNV Miscellaneous Information (Order Awaiting Action) 1 ea QS N/A 05/10/17 16:00 06/09/17 15:59 Review of Systems Constitutional: No fever, No chills, No sweats Eyes: No worsening of vision ENT: No hearing loss, No unusual epistaxis, No nasal symptoms Respiratory: No cough, No sputum, No wheezing Cardiovascular: + chest pain, No orthopnea, No PND Abdomen: No pain, No nausea, No vomiting Musculoskeletal: No joint pain Genitourinary - Male: No hematuria, No dysuria, No urinary frequency, No urinary urgency Neurologic: No memory loss, No paralysis, No weakness Psychiatric: No depression symptoms Endocrine: No fatigue Hematologic / Lymphatic: No abnormal bleeding/bruising Integumentary: No rash Allergic / Immunologic: No environmental allergies Physical Exam Date Time Temp Pulse Resp B/P (MAP) Pulse Ox O2 Delivery O2 Flow Rate FiO2 05/10/17 11:53 93 Nasal Cannula 3.0 05/10/17 11:47 93 Nasal Cannula 3.0 05/10/17 11:42 36.5 80 16 128/83 (98) 93 Nasal Cannula 3.0 05/10/17 10:57 76 12 95 05/10/17 10:57 76 12 05/10/17 10:56 121/76 05/10/17 10:56 36.2 78 20 121/76 95 Nasal Cannula 3 05/10/17 10:52 78 17 05/10/17 10:52 78 17 97 05/10/17 10:51 122/86 05/10/17 10:47 75 13 96 05/10/17 10:47 77 13 05/10/17 10:46 129/80 05/10/17 10:42 75 19 05/10/17 10:42 75 19 96 05/10/17 10:41 130/78 05/10/17 10:37 80 12 05/10/17 10:37 80 12 96 05/10/17 10:36 121/80 05/10/17 10:32 78 14 05/10/17 10:32 79 14 95 05/10/17 10:31 119/82 05/10/17 10:27 79 14 97 05/10/17 10:27 79 14 05/10/17 10:26 150/92 05/10/17 10:22 76 9 05/10/17 10:22 78 9 94 05/10/17 10:21 116/80 05/10/17 10:17 74 12 05/10/17 10:17 74 12 96 05/10/17 10:16 138/89 05/10/17 10:12 74 11 96 05/10/17 10:12 73 11 05/10/17 10:11 136/83 05/10/17 10:07 73 10 05/10/17 10:07 71 10 97 05/10/17 10:06 138/86 05/10/17 10:02 71 7 97 05/10/17 10:02 70 7 05/10/17 10:01 127/80 05/10/17 09:57 72 15 98 05/10/17 09:57 70 15 05/10/17 09:56 140/84 05/10/17 09:52 70 10 99 05/10/17 09:52 70 10 05/10/17 09:51 142/96 05/10/17 09:47 71 11 05/10/17 09:47 71 11 100 05/10/17 09:46 143/87 05/10/17 09:42 68 9 05/10/17 09:42 68 9 100 05/10/17 09:41 154/88 05/10/17 09:37 69 13 05/10/17 09:37 71 13 100 05/10/17 09:36 147/85 05/10/17 09:32 71 12 100 05/10/17 09:32 71 12 05/10/17 09:31 141/89 05/10/17 09:27 69 11 05/10/17 09:27 69 11 100 05/10/17 09:26 172/89 05/10/17 09:22 70 14 100 05/10/17 09:22 69 14 05/10/17 09:21 143/83 05/10/17 09:18 146/77 05/10/17 09:17 36 68 12 146/77 96 Mask 10 05/10/17 09:17 70 10 05/10/17 09:17 68 10 94 05/10/17 06:02 36.5 72 20 132/83 (99) 97 Room Air General Appearance: WD/WN, no apparent distress, + pertinent finding (Pleasant , overweight, middle aged male in no distress) Head: normocephalic Eyes: normal inspection, PERRL, EOMI ENT: normal ENT inspection, hearing grossly normal, TMs normal, pharynx normal Neck: supple, no JVD Respiratory/Chest: chest non-tender, lungs clear, normal breath sounds Cardiovascular: regular rate, rhythm, normal peripheral pulses Abdomen/GI: normal bowel sounds, non tender, soft Back: normal inspection, no CVA tenderness Extremities/Musculoskelatal: normal inspection, no calf tenderness, no pedal edema Neurologic/Psych: manager sterile II-XII nml as tested, no motor/sensory deficits, alert, normal mood/affect, normal reflexes, oriented x 3 Skin: normal color, warm/dry, + pertinent finding (Surgical site is bandaged directly post-op) Laboratory Results Last 24 Hours Test 05/10/17 05:46 05/10/17 09:37 05/10/17 11:52 05/10/17 12:02 Bedside Glucose 104 mg/dl 125 mg/dl 129 mg/dl Assessment & Plan 56 y/o M Hx HTN, HPL, DM 2, NARINDER, DJD - multiple orthopedic procedures. Pt has hardware in his L knee which had become infected with Staph. He is currently post-op hardware removal. He is recovering well and able to mobilize. He denies CP, SOB, N/V or light headedness. He denies excessive pain at the surgical site. The pt requires chronic antibiotic suppression therapy. 1) Post - op - no apparent complaints or complications - labs are pending - will review - pain control is adequate at present pt tolerating PO 2) DM - placed on SS - oral meds held for AM 3) HTN - can resume all prescribed meds aside fro Lisinopril which can be restarted AM pending lab review 4) HPL - cont Statin Tx 5) NARINDER pt has brought his CPAP 6) Infection of hardware in L knee - Pt to remain on antibiotics pending ID outpt assessment. Total time for this consult including review of labs, meds, records, ortho notes - discussion with pt - 2 min
[2017-05-10] MEDS: SODIUM CHLORIDE 0.9% 1000ML 1,000 ML IV SCH ×2 (12:53→18:57)
[2017-05-10] MEDS: METOPROLOL TARTRATE 50 MG TAB PO SCH ×2 (13:13→16:01)
--- NOTE | 2017-05-10 13:25 | [facility] Operative Report ---
Operative Report Operative Date May 10, 2017. Pre-Operative Diagnosis Status post high tibial osteotomy with postoperative infection and septic arthrtis of the left knee, retained hardware Post-Operative Diagnosis same Procedure(s) Performed Left Tibial plate Removal Surgeon Dr. Fercho Rodriguez Molder Machine Tender Surgeon(s) Tamica Hoskins PA-c and Dr. Maya Chinchilla(fellow) Estimated Blood Loss 100 ml Findings retained hardware Specimens Microbiology #1 Left tibial plate-gram stain, anaerobic aerobic and routine culture and sentivity out of room at 0748 #2 Left tibial bone- gram stain, anaerobic, aerobic and routine culturea nd sensitivity out of room at 0805 #3 Left tibial lateral hardware, gram stain, anaerobic, aerobic and routine culturea nd sensitivity out of room at 0835 hold all periprosthetic cultures for 2 week and do not combine . lab informed of request at 0825 periprosthetic Specimen A: Explanted hardware, Left tibial plate and screws Drains 1 Anesthesia spinal with IV sedation and peripheral nerve block Complication(s) None Disposition Recovery Room / PACU (stable) Indications Patient is a 56-year-old male who was seen in our office. He has retained hardware of his left proximal tibia status post high tibial osteotomy. He wished to proceed with hardware removal of his left knee. He is status post infection of this left knee in the past. No current infection. X-rays are taken and was found to have a healed tibial osteotomy site with DJD of his left knee. Surgical intervention was discussed and he agreed to proceed. Risks and complications were explained to the patient and informed consent was obtained. Description of Procedure Patient was taken to the operating room and under spinal anesthesia with peripheral nerve block his surgery was performed. He was given 2 g of IV Ancef for surgical prophylaxis. Timeout was performed. He was prepped and draped in routine sterile fashion. I was present during the entire case, please see Dr. Rodriguez's operative report for further detail. He was awakened and transferred to the recovery room in stable condition. I attest to the content of the Intraoperative Record and any orders documented therein. Any exceptions are noted below.
--- NOTE | 2017-05-10 14:19 | Medical Consult ---
Consultation Date of Consultation: May 10, 2017. Attending Physician: Fercho Rodriguez M.D. History of Present Illness pt admitted for elective removal of lle hardware. Has h/o MSSA infection, 2015. was treated with IV abx and then placed on chronic suppression with po rifampin and keflex. rifampin stopped in 01/2017, was on low dose keflex up to admission, tolerating well. would like to undergo tkr in the future so hardware removed in potential prep for this. pt tolerated well. denies pain on my exam. denies recent f/c no abd pain no n/v/d/. no f/c. no drainage from knee, no redness/swelling. multiple OR cultures obtained, all pending. off of abx currently. no pre op abx given. all remaining ros reviewed and are negative. Family History FH: diabetes mellitus High cholesterol Social History Smoking Status: Former Smoker Alcohol Use: occasionally (2 drinks per week) Drug Use: none Marital Status: Housing Status: lives alone, other Occupation Status: disabled Allergies Coded Allergies: Simvastatin (Verified Allergy, Unknown, MUSCLE WEAKNESS,TINGLING, 05/10/17) Current Inpatient Medications Current Inpatient Medications Medications (Trade) Dose Ordered Sig/Geovanni Route Start Time Stop Time Status Last Admin Dose Admin Lactated Ringer's 1,000 ml @ 0 mls/hr Q0M IV 05/10/17 06:00 05/10/17 23:59 Lactated Ringer's 1,000 ml @ 15 mls/hr Q24H IV 05/10/17 06:00 05/11/17 05:59 05/10/17 06:29 15 MLS/HR Enoxaparin Sodium (Lovenox Inj) 30 mg Q12H SQ 05/10/17 22:00 06/07/17 21:59 UNV Sodium Chloride 1,000 ml @ 100 mls/hr Q10H IV 05/10/17 09:13 05/11/17 09:12 05/10/17 12:53 100 MLS/HR Oxycodone HCl (Roxicodone Immediate Rel Tab) 1 TABLET FOR PAIN RATING... Q4H PRN PO 05/10/17 09:15 05/24/17 09:14 Morphine Sulfate (MoRPHine SULFATE INJ) 2 mg Q2H PRN IV 05/10/17 09:15 05/24/17 09:14 Acetaminophen (Tylenol Tab) 1,000 mg Q8H PO 05/10/17 09:15 06/09/17 09:14 UNV Magnesium Hydroxide (Milk Of Magnesia Susp) 30 ml Q6H PRN PO 05/10/17 09:15 06/09/17 09:14 Bisacodyl (Dulcolax Supp) 10 mg DAILY PRN [place] 05/10/17 09:15 06/09/17 09:14 Sodium Biphosphate/ Sodium Phosphate (Fleet Enema) 132 ml DAILY PRN [place] 05/10/17 09:15 06/09/17 09:14 Docusate Sodium (coLACE CAP) 100 mg BID PO 05/10/17 21:00 06/09/17 20:59 Multivitamins (Multivitamin Tab) 1 tab QAM PO 05/11/17 09:00 06/10/17 08:59 UNV Ondansetron HCl (Zofran Inj) 4 mg Q6H PRN IV 05/10/17 09:15 06/09/17 09:14 Tamsulosin HCl (Flomax Cap) 0.4 mg QAM PRN PO 05/10/17 09:15 06/09/17 09:14 UNV Tramadol HCl (Ultram Tab) 1 tablet for pain rating... Q4H PRN PO 05/10/17 09:15 06/09/17 09:14 UNV Ketorolac Tromethamine (Toradol Inj) 30 mg Q6H IV. 05/10/17 09:15 05/12/17 09:14 UNV Cefazolin Sodium (Ancef 2000mg/60 ml D5W) 2,000 mg Q8H ONCE IV 05/10/17 09:15 05/10/17 09:16 UNV Amitriptyline HCl (Elavil Tab) 20 mg DAILY@2100 PO 05/10/17 21:00 06/09/17 20:59 Amlodipine Besylate (Norvasc Tab) 5 mg DAILY@1700 PO 05/10/17 17:00 06/09/17 16:59 UNV Aspirin (Ecotrin Tab) 81 mg HS PO 05/10/17 21:00 06/09/17 20:59 Baclofen (Lioresal Tab) 60 mg HS PO 05/10/17 09:15 06/09/17 09:14 UNV Fexofenadine HCl (Carmen Tab) 180 mg DAILY@0900,1700 PO 05/10/17 09:15 06/09/17 09:14 UNV Fluoxetine HCl (Prozac Cap) 20 mg QAM PO 05/11/17 09:00 06/10/17 08:59 UNV Fluoxetine HCl (Prozac Cap) 40 mg DAILY@1200 PO 05/10/17 12:00 06/09/17 11:59 UNV Fluticasone Propionate (Flonase Nasal [place]) 2 sprays HS LULU 05/10/17 21:00 06/09/17 20:59 UNV Gabapentin (Neurontin Cap) 400 mg TID@0900,1200,1700 PO 05/10/17 09:15 06/09/17 09:14 UNV Indapamide (Lozol Tab) 1.25 mg QPM PO 05/10/17 21:00 06/09/17 20:59 UNV Ammonium Lactate (Lac-Hydrin) 1 appl QAM PRN EXT 05/10/17 09:15 06/09/17 09:14 Lisinopril (Zestril Tab) 40 mg HS PO 05/10/17 21:00 06/09/17 20:59 UNV Metaxalone (Skelaxin Tab) 1,600 mg DAILY@1200 PO 05/10/17 12:00 06/09/17 11:59 UNV Metaxalone (Skelaxin Tab) 800 mg QAM PO 05/11/17 09:00 06/10/17 08:59 UNV Metformin HCl (Glucophage Tab) 850 mg BID@0800,1100 PO 05/11/17 08:00 06/10/17 07:59 UNV Metoprolol Tartrate (Lopressor Tab) 50 mg DAILY@0900,1200 PO 05/10/17 09:15 06/09/17 09:14 05/10/17 13:13 50 MG Modafinil (proVIGIL TAB) 200 mg BID@0900,1200 PO 05/11/17 09:00 06/10/17 08:59 UNV Oxycodone HCl (Oxycontin Tab) 10 mg BID PO 05/10/17 21:00 05/24/17 20:59 Rosuvastatin Calcium (Crestor Tab) 10 mg DAILY@1700 PO 05/10/17 17:00 06/09/17 16:59 UNV Calcium/Vitamin D (Caltrate Plus Tab) 1 tab QAM PO 05/11/17 09:00 06/10/17 08:59 UNV Non-Formulary Medication (Ketoconazole ) 1 appl 2XWK TOP 05/10/17 09:15 06/09/17 09:14 UNV Ipratropium [place] (Atrovent Hfa Inhaler) 2 puffs TID@0800,1200,1700 INH 05/10/17 12:00 06/09/17 11:59 UNV Miscellaneous Information (Order Awaiting Action) 1 ea QS N/A 05/10/17 16:00 06/09/17 15:59 Insulin Aspart (novoLOG ASPART) SLIDING SCALE G... ACHS SC 05/10/17 16:00 06/09/17 15:59 UNV Miscellaneous (Iv Fluids Completed) 1 ea PRN PRN N/A 05/10/17 12:30 05/10/18 12:29 Physical Exam Date Time Temp Pulse Resp B/P (MAP) Pulse Ox O2 Delivery O2 Flow Rate FiO2 05/10/17 13:09 36.6 89 16 135/90 (105) 97 Nasal Cannula 2.0 05/10/17 12:23 36.4 75 18 123/81 (95) 97 Nasal Cannula 2.0 05/10/17 11:53 93 Nasal Cannula 3.0 05/10/17 11:47 93 Nasal Cannula 3.0 05/10/17 11:42 36.5 80 16 128/83 (98) 93 Nasal Cannula 3.0 05/10/17 10:57 76 12 95 05/10/17 10:57 76 12 05/10/17 10:56 121/76 05/10/17 10:56 36.2 78 20 121/76 95 Nasal Cannula 3 05/10/17 10:52 78 17 05/10/17 10:52 78 17 97 05/10/17 10:51 122/86 05/10/17 10:47 75 13 96 05/10/17 10:47 77 13 05/10/17 10:46 129/80 05/10/17 10:42 75 19 05/10/17 10:42 75 19 96 05/10/17 10:41 130/78 05/10/17 10:37 80 12 05/10/17 10:37 80 12 96 05/10/17 10:36 121/80 05/10/17 10:32 78 14 05/10/17 10:32 79 14 95 05/10/17 10:31 119/82 05/10/17 10:27 79 14 97 05/10/17 10:27 79 14 05/10/17 10:26 150/92 05/10/17 10:22 76 9 05/10/17 10:22 78 9 94 05/10/17 10:21 116/80 05/10/17 10:17 74 12 05/10/17 10:17 74 12 96 05/10/17 10:16 138/89 05/10/17 10:12 74 11 96 05/10/17 10:12 73 11 05/10/17 10:11 136/83 05/10/17 10:07 73 10 05/10/17 10:07 71 10 97 05/10/17 10:06 138/86 05/10/17 10:02 71 7 97 05/10/17 10:02 70 7 05/10/17 10:01 127/80 05/10/17 09:57 72 15 98 05/10/17 09:57 70 15 05/10/17 09:56 140/84 05/10/17 09:52 70 10 99 05/10/17 09:52 70 10 05/10/17 09:51 142/96 05/10/17 09:47 71 11 05/10/17 09:47 71 11 100 05/10/17 09:46 143/87 05/10/17 09:42 68 9 05/10/17 09:42 68 9 100 05/10/17 09:41 154/88 05/10/17 09:37 69 13 05/10/17 09:37 71 13 100 05/10/17 09:36 147/85 05/10/17 09:32 71 12 100 05/10/17 09:32 71 12 05/10/17 09:31 141/89 05/10/17 09:27 69 11 05/10/17 09:27 69 11 100 05/10/17 09:26 172/89 05/10/17 09:22 70 14 100 05/10/17 09:22 69 14 05/10/17 09:21 143/83 05/10/17 09:18 146/77 05/10/17 09:17 36 68 12 146/77 96 Mask 10 05/10/17 09:17 70 10 05/10/17 09:17 68 10 94 05/10/17 06:02 36.5 72 20 132/83 (99) 97 Room Air General Appearance: WD/WN, no apparent distress Head: normocephalic, atraumatic Eyes: normal inspection, EOMI Neck: supple Respiratory/Chest: chest non-tender, lungs clear, normal breath sounds, no respiratory distress Cardiovascular: regular rate, rhythm, no edema Abdomen/GI: non tender, soft Extremities/Musculoskelatal: no pedal edema, + pertinent finding (left knee dressing intact,drain in place, serosang draiange) Neurologic/Psych: alert, oriented x 3 Skin: normal color Laboratory Results Item Value Date Time Gram Stain - Final Resulted 05/10/17 0745 Joint Fluid/Space (Synovial) Knee Left Gram Stain - Final Resulted 05/10/17 0803 Joint Fluid/Space (Synovial) Knee Left Gram Stain - Final Resulted 05/10/17 0821 Joint Fluid/Space (Synovial) Knee Left Last 24 Hours Test 05/10/17 05:46 05/10/17 09:37 05/10/17 12:02 05/10/17 12:50 Bedside Glucose 104 mg/dl 125 mg/dl 129 mg/dl Assessment & Plan (1) Septic arthritis of knee, left Assessment & Plan: follow cultures, hold abx for now. continue to follow micro (2) Retained orthopedic hardware
[2017-05-10] MEDS ORDERED: ACETAMINOPHEN 500 MG TAB PO ONE (15:02)
[2017-05-10] MEDS: ACETAMINOPHEN 500 MG TAB PO SCH ×2 (15:04→21:48)
--- NOTE | 2017-05-10 15:12 | Orthopedic Progress Note ---
Orthopedic Progress Note Date of Service May 10, 2017. Subjective Post OP Day: 0 Reports: feeling well, pain controlled w PO medications, Denies: complaints, chest pain, SOB, nausea / vomiting, light headedness, calf pain Objective calves soft nontender, N/V intact, capillary refill less than 2 sec., A&O x3, toes mobile dressings with bloody drainage laterally. Hemovac functioning. Resting with CPAP on Date Time Temp Pulse Resp B/P (MAP) Pulse Ox O2 Delivery O2 Flow Rate FiO2 05/10/17 14:23 36.8 83 16 138/65 (89) 05/10/17 13:09 36.6 89 16 135/90 (105) 97 Nasal Cannula 2.0 05/10/17 12:23 36.4 75 18 123/81 (95) 97 Nasal Cannula 2.0 05/10/17 11:53 93 Nasal Cannula 3.0 05/10/17 11:47 93 Nasal Cannula 3.0 05/10/17 11:42 36.5 80 16 128/83 (98) 93 Nasal Cannula 3.0 05/10/17 10:57 76 12 95 05/10/17 10:57 76 12 05/10/17 10:56 121/76 05/10/17 10:56 36.2 78 20 121/76 95 Nasal Cannula 3 05/10/17 10:52 78 17 05/10/17 10:52 78 17 97 05/10/17 10:51 122/86 05/10/17 10:47 75 13 96 05/10/17 10:47 77 13 05/10/17 10:46 129/80 05/10/17 10:42 75 19 05/10/17 10:42 75 19 96 05/10/17 10:41 130/78 05/10/17 10:37 80 12 05/10/17 10:37 80 12 96 05/10/17 10:36 121/80 05/10/17 10:32 78 14 05/10/17 10:32 79 14 95 05/10/17 10:31 119/82 05/10/17 10:27 79 14 97 05/10/17 10:27 79 14 05/10/17 10:26 150/92 05/10/17 10:22 76 9 05/10/17 10:22 78 9 94 05/10/17 10:21 116/80 05/10/17 10:17 74 12 05/10/17 10:17 74 12 96 05/10/17 10:16 138/89 05/10/17 10:12 74 11 96 05/10/17 10:12 73 11 05/10/17 10:11 136/83 05/10/17 10:07 73 10 05/10/17 10:07 71 10 97 05/10/17 10:06 138/86 05/10/17 10:02 71 7 97 05/10/17 10:02 70 7 05/10/17 10:01 127/80 05/10/17 09:57 72 15 98 05/10/17 09:57 70 15 05/10/17 09:56 140/84 05/10/17 09:52 70 10 99 05/10/17 09:52 70 10 05/10/17 09:51 142/96 05/10/17 09:47 71 11 05/10/17 09:47 71 11 100 05/10/17 09:46 143/87 05/10/17 09:42 68 9 05/10/17 09:42 68 9 100 05/10/17 09:41 154/88 05/10/17 09:37 69 13 05/10/17 09:37 71 13 100 05/10/17 09:36 147/85 05/10/17 09:32 71 12 100 05/10/17 09:32 71 12 05/10/17 09:31 141/89 05/10/17 09:27 69 11 05/10/17 09:27 69 11 100 05/10/17 09:26 172/89 05/10/17 09:22 70 14 100 05/10/17 09:22 69 14 05/10/17 09:21 143/83 05/10/17 09:18 146/77 05/10/17 09:17 36 68 12 146/77 96 Mask 10 05/10/17 09:17 70 10 05/10/17 09:17 68 10 94 05/10/17 06:02 36.5 72 20 132/83 (99) 97 Room Air Assessment & Plan Assessment: S/P Hardware removal left knee Plan: OOB - PWB with assistance of crutches left knee Allowed for ROM left knee as tolerated Ice to left knee as needed. Regular diabetic diet. Medications reviewed with patient and pharmacist. All questions answered. PT ordered Plan for discharge to home tomorrow. Reinforce dressings left knee as needed. - reinforced today. (1) Septic arthritis of knee, left (2) Retained orthopedic hardware
[2017-05-10] MEDS ORDERED: AMLODIPINE BESYLATE 5 MG TAB PO SCH (17:00)
[2017-05-10] MEDS ORDERED: FEXOFENADINE HCL 180 MG TAB PO SCH ×2 (17:00)
[2017-05-10] MEDS ORDERED: ROSUVASTATIN CALCIUM 10 MG TAB PO SCH (17:00)
[2017-05-10] MEDS: INSULIN ASPART 100 UNITS/ML 3 ML PEN SC SCH ×2 (17:15→21:39)
[2017-05-10] MEDS: IPRATROPIUM BROMIDE HFA INHALER INH SCH (17:22)
[2017-05-10] MEDS: GABAPENTIN 400 MG CAP PO SCH (17:23)
[2017-05-10] MEDS: KETOROLAC TROMETHAMINE 30 MG/ML VIAL IV. SCH (17:30)
[2017-05-10] MEDS ORDERED: AMITRIPTYLINE HCL 10 MG TAB PO SCH (21:00)
[2017-05-10] MEDS ORDERED: ASPIRIN 81 MG ECTAB PO SCH (21:00)
[2017-05-10] MEDS ORDERED: FLUTICASONE PROPIONATE NA SPR 16 GM BTL NAE SCH (21:00)
[2017-05-10] MEDS ORDERED: INDAPAMIDE 1.25 MG TAB PO SCH (21:00)
[2017-05-10] MEDS ORDERED: BACLOFEN TAB 20 MG TAB PO SCH (21:00)
[2017-05-10] MEDS ORDERED: LISINOPRIL 40 MG TAB PO SCH (21:00)
[2017-05-10] MEDS: OXYCODONE HCL 10 MG TABCR (OXYCONTIN) PO SCH (21:42)
[2017-05-10] MEDS: DOCUSATE SODIUM 100 MG CAP PO SCH (21:45)
[2017-05-10] MEDS: ENOXAPARIN 30 MG/0.3 ML SYR SQ SCH (21:47)
[2017-05-11 04:00] VITALS: BP 127/82; PULSE 65; TEMP 36.5; O2SAT 96
[2017-05-11] MEDS: SODIUM CHLORIDE 0.9% 1000ML 1,000 ML IV SCH (05:13)
[2017-05-11 05:51] LABS: HEMATOCRIT 32.9 % (42-52); MEAN CELL VOLUME 83.9 fL (80-100); MEAN CORPUSCULAR HEMOGLOBIN 27.3 pg (25-34); MEAN CORPUSCULAR HGB CONC 32.5 g/dl (32-36); MEAN PLATELET VOLUME 10.4 fL (7.4-10.4); PLATELET COUNT 148 K/uL (130-400); RED BLOOD COUNT 3.92 M/uL (4.7-6.1); WHITE BLOOD COUNT 6.32 K/uL (4.8-10.8)
[2017-05-11] MEDS: KETOROLAC TROMETHAMINE 30 MG/ML VIAL IV. SCH ×3 (06:07→12:44)
[2017-05-11] MEDS: ACETAMINOPHEN 500 MG TAB PO SCH ×2 (06:07→12:46)
[2017-05-11 06:18] LABS: BUN/CREATININE RATIO 20.9 (10-20); CALCIUM 7.8 mg/dl (8.5-10.1); CREATININE 1.2 mg/dl (0.60-1.40)
[2017-05-11 07:57] VITALS: BP 138/78; PULSE 70; TEMP 36.5; O2SAT 96
[2017-05-11] MEDS: INSULIN ASPART 100 UNITS/ML 3 ML PEN SC SCH ×2 (08:00→12:00)
[2017-05-11 08:17] VITALS: O2SAT 96
[2017-05-11] MEDS: IPRATROPIUM BROMIDE HFA INHALER INH SCH ×2 (08:20→12:42)
[2017-05-11] MEDS: METFORMIN HCL 850 MG TAB PO SCH ×2 (08:21→12:43)
[2017-05-11] MEDS: GABAPENTIN 400 MG CAP PO SCH ×2 (08:55→12:43)
[2017-05-11] MEDS: METOPROLOL TARTRATE 50 MG TAB PO SCH ×2 (08:55→12:43)
[2017-05-11] MEDS: DOCUSATE SODIUM 100 MG CAP PO SCH (08:55)
[2017-05-11] MEDS: OXYCODONE HCL 10 MG TABCR (OXYCONTIN) PO SCH (08:59)
[2017-05-11] MEDS: MODAFINIL 100 MG TAB PO SCH ×2 (08:59→12:45)
[2017-05-11] MEDS ORDERED: CALCIUM 600MG + VIT D 400 IU TAB PO SCH (09:00)
[2017-05-11] MEDS ORDERED: MULTIVITAMIN TAB PO SCH (09:00)
[2017-05-11] MEDS ORDERED: METAXALONE 800 MG TAB PO SCH ×2 (09:00→12:00)
[2017-05-11] MEDS ORDERED: PIOGLITAZONE TAB 15 MG TAB PO SCH (09:00)
[2017-05-11] MEDS ORDERED: FLUOXETINE HCL 20 MG CAP PO SCH ×2 (09:00→12:00)
[2017-05-11] MEDS ORDERED: LIRAGLUTIDE 1.2 MG INJ SCH (09:00)
[2017-05-11] MEDS: ENOXAPARIN 30 MG/0.3 ML SYR SQ SCH (09:07)
--- NOTE | 2017-05-11 09:12 | Orthopedic Progress Note ---
Orthopedic Progress Note Date of Service May 11, 2017. Subjective Post OP Day: 1 Reports: feeling well, pain controlled w PO medications, Denies: complaints, chest pain, SOB, nausea / vomiting, light headedness, calf pain Objective calves soft nontender, N/V intact, capillary refill less than 2 sec., A&O x3, toes mobile Hemovac pulled. Normal sensation throughout foot. Able to flex to 100 degrees with dressings on. Able to independently SLR. Date Time Temp Pulse Resp B/P (MAP) Pulse Ox O2 Delivery O2 Flow Rate FiO2 05/11/17 08:17 96 Room Air 05/11/17 07:57 36.5 70 20 138/78 (98) 96 Room Air 05/11/17 07:39 Room Air 05/11/17 04:00 36.5 65 16 127/82 (97) 96 BiPAP 05/11/17 00:00 CPAP 05/10/17 23:25 36.5 74 16 121/75 (90) 96 Room Air 05/10/17 19:22 36.5 67 16 145/85 (105) 97 Room Air 05/10/17 16:00 Room Air 05/10/17 14:23 36.8 83 16 138/65 (89) 05/10/17 13:09 36.6 89 16 135/90 (105) 97 Nasal Cannula 2.0 05/10/17 12:23 36.4 75 18 123/81 (95) 97 Nasal Cannula 2.0 05/10/17 11:53 93 Nasal Cannula 3.0 05/10/17 11:47 93 Nasal Cannula 3.0 05/10/17 11:42 36.5 80 16 128/83 (98) 93 Nasal Cannula 3.0 05/10/17 10:57 76 12 95 05/10/17 10:57 76 12 05/10/17 10:56 121/76 05/10/17 10:56 36.2 78 20 121/76 95 Nasal Cannula 3 05/10/17 10:52 78 17 05/10/17 10:52 78 17 97 05/10/17 10:51 122/86 05/10/17 10:47 75 13 96 05/10/17 10:47 77 13 05/10/17 10:46 129/80 05/10/17 10:42 75 19 05/10/17 10:42 75 19 96 05/10/17 10:41 130/78 05/10/17 10:37 80 12 05/10/17 10:37 80 12 96 05/10/17 10:36 121/80 05/10/17 10:32 78 14 05/10/17 10:32 79 14 95 05/10/17 10:31 119/82 05/10/17 10:27 79 14 97 05/10/17 10:27 79 14 05/10/17 10:26 150/92 05/10/17 10:22 76 9 05/10/17 10:22 78 9 94 05/10/17 10:21 116/80 05/10/17 10:17 74 12 05/10/17 10:17 74 12 96 05/10/17 10:16 138/89 05/10/17 10:12 74 11 96 05/10/17 10:12 73 11 05/10/17 10:11 136/83 05/10/17 10:07 73 10 05/10/17 10:07 71 10 97 05/10/17 10:06 138/86 05/10/17 10:02 71 7 97 05/10/17 10:02 70 7 05/10/17 10:01 127/80 05/10/17 09:57 72 15 98 05/10/17 09:57 70 15 05/10/17 09:56 140/84 05/10/17 09:52 70 10 99 05/10/17 09:52 70 10 05/10/17 09:51 142/96 05/10/17 09:47 71 11 05/10/17 09:47 71 11 100 05/10/17 09:46 143/87 05/10/17 09:42 68 9 05/10/17 09:42 68 9 100 05/10/17 09:41 154/88 05/10/17 09:37 69 13 05/10/17 09:37 71 13 100 05/10/17 09:36 147/85 05/10/17 09:32 71 12 100 05/10/17 09:32 71 12 05/10/17 09:31 141/89 05/10/17 09:27 69 11 05/10/17 09:27 69 11 100 05/10/17 09:26 172/89 05/10/17 09:22 70 14 100 05/10/17 09:22 69 14 05/10/17 09:21 143/83 05/10/17 09:18 146/77 05/10/17 09:17 36 68 12 146/77 96 Mask 10 05/10/17 09:17 70 10 05/10/17 09:17 68 10 94 Laboratory Results 24 Hours: Test 05/11/17 05:10 Hematocrit 32.9 % Hemoglobin 10.7 g/dL Assessment & Plan Assessment: POD 1 Hardware removal left knee Plan: OOB - PWB with assistance of crutches left knee Allowed for ROM left knee as tolerated Ice to left knee as needed. Regular diabetic diet. Medications reviewed with patient and pharmacist. Appreciate ID input. Patient given IV Ancef pre op and continued post op Cultures pending. All questions answered. PT ordered Continue to reinforce dressings left knee as needed. D/C home today if ok with Infectious Disease. Dr. Rodriguez present for visit. (1) Septic arthritis of knee, left (2) Retained orthopedic hardware Discharge Planning Discharge Planning: home with oppt Pain Management: Toradol, Oxy IR DVT Prophylaxis: TEDs Lovenox Therapy: Physical Therapy
[2017-05-11] MEDS ORDERED: LVNIS30 SQ (09:15)
[2017-05-11] MEDS ORDERED: KETO10TA PO (09:15)
[2017-05-11] MEDS ORDERED: CLC100 PO (09:15)
[2017-05-11] MEDS ORDERED: RXC5 PO (09:16)
--- NOTE | 2017-05-11 09:17 | Discharge Instructions ---
Discharge Instructions Date of Service May 11, 2017. Admission Reason for Admission: Left Tibia Retained Hareware Discharge Discharge Diagnosis / Problem: left tibia retained hardware Discharge Goals Goal(s): Decrease discomfort, Improve function, Increase independence Activity Recommendations Activity Limitations: per Instructions/Follow-up section Weightbearing Status: Left partial . Instructions / Follow-Up Instructions / Follow-Up DIET: * Resume previous diet. MEDICATIONS: * Please take your prescriptions as instructed at your pre-op appointment and/ or see medication discharge instructions listed above. * If concerns develop, call your physician's office at . SPECIAL CARE INSTRUCTIONS: * Ice to left knee as needed for pain and swelling. * Elevate left lower extremity above heart as needed for pain and swelling * Keep dressing clean, dry, intact until your therapy appointment on Tuesday, . Cover dressings with a bag. After dressings removed he may shower, pat incision dry. Do not scrub or soak incision. * Use crutches or walker to assist with ambulation. * You may do full range of motion of her left knee as instructed. * You may do partial weightbearing left lower extremity. * Your surgical extremity may be discolored due to prepping agents used on the skin. A bluish-green tint is a normal variant and should not cause alarm. Call your doctor at [phone] if: * Temperature above 101 degrees * Pain not relieved by pain medicine ordered * There is increased drainage or redness from any incision * You have any unanswered questions, problems or concerns. FOLLOW UP VISIT: * If not already scheduled, please call the office at to schedule a follow-up appointment. * You have a follow-up appointment scheduled with Dr. Rodriguez on 05/23/2017 at 11:45 AM * You will start physical therapy on 05/16/2017 at 10:30 AM. Current Hospital Diet Patient's current hospital diet: Diabetes Type 2 Diet Discharge Diet Recommended Diet: Regular Diet, Diabetes Type 2 Diet Procedures Procedures Performed: Left Tibial plate Removal Pending Studies Studies pending at discharge: no Medical Emergencies . Who to Call and When: Medical Emergencies: If at any time you feel your situation is an emergency, please call 911 immediately. . Non-Emergent Contact Non-Emergency issues call your: Surgeon Call Non-Emergent contact if: temperature is above 101, your pain is not controlled, your pain is concerning you, wound has increased drainage, wound has increased redness, wound has increased pain, you have any medication questions . "Provider Documentation" section prepared by Tamica Hoskins. . VTE Core Measure Inpt VTE Proph given/why not?: Enoxaparin (Lovenox)SQ (30 twice a day subcutaneous 28 days), Cathryn [place] Drug Monitoring Program Search Results: patient reviewed within database, no issues identified
--- NOTE | 2017-05-11 09:31 | Discharge Summary ---
Discharge Summary Date of Service May 11, 2017. Discharge Summary Admission Date: May 10, 2017 at 06:45 Discharge Date: May 11, 2017 Discharge Disposition: Home Principal Diagnosis: Left tibia retained hardware Secondary Diagnoses/Problems: Obstructive sleep apnea, diabetes mellitus, anxiety, hyperlipidemia, hypertension, osteoporosis, osteoarthritis, ichthyosis, history of infection of left proximal tibia, history of septic arthritis left knee Procedures: Hardware removal left knee in 05/10/[address] Rodriguez Consultations: Hospitalist, infectious disease Pending Studies/Follow-Up: A follow-up scheduled with Dr. Rodriguez on 05/23/2017 at 11:45 AM Medication Reconciliation New Medications: Docusate Sodium (Docusate Sodium) 100 Mg Cap 100 MG PO BID for 30 Days, #60 CAP Enoxaparin (Lovenox) 30 Mg/0.3 Ml Inj 30 MG SQ Q12H for 30 Days Oxycodone HCl (Oxycodone HCl) 5 Mg Tab 5-10 MG PO Q4H PRN for Pain, #40 TAB Changed Medications: Cephalexin Monohydrate (Keflex) 500 Mg Cap 500 MG PO TID for 14 Days, #42 CAP (Changed from: QAM) Continued Medications: Acetaminophen (Tylenol Arthritis Ext Rel) 650 Mg Cplt 1300 MG PO HS PRN for RN, CAP Amitriptyline HCl (Amitriptyline HCl) 10 Mg Tab 20 MG PO HS Amlodipine (Norvasc) 5 Mg Tab 5 MG PO QPM, TAB Aspirin (Aspirin 81) 81 Mg Tab 81 MG PO HS Baclofen (Lioresal) 10 Mg Tab 30 MG PO HS, TAB Calcium Carbonate-Vitamin D (Calcium 600 + D) 1 Tab Tab 1 TAB PO QAM Diphenhydramine Hcl (Sleep) (Diphenhydramine Hcl) 50 Mg Tab 1 TAB PO HS PRN for PRN for 30 Days, #30 TAB 1 Refill Fexofenadine Hcl (Carmen Allergy) 180 Mg Tab 180 MG PO QPM Fluoxetine (Prozac) 20 Mg Cap 20 MG PO QAM, CAP Fluoxetine (Prozac) 40 Mg Cap 40 MG PO NOON, CAP Fluticasone Propionate (Nasal) (Flonase Allergy Relief) 50 Mcg/Act Spr 2 SPRAYS LULU HS Gabapentin (Gabapentin) 300 Mg Cap 400 MG PO TID AM/NOON/1700 Indapamide (Lozol) 1.25 Mg Tab 1.25 MG PO QPM, TAB Ketoconazole (Ketoconazole) 60 Appln/120 Ml Sham 1 APPL TOP 2XWK USE SHAMPOO TWICE A WEEK Lactic Acid (Ammonium Lactate) (Ammonium Lactate) 12 % Lot 1 DOSE TOP QAM PRN for RN Liraglutide (Victoza) 18 Mg/3 Ml Inj 1.2 MG INJ QAM Lisinopril (Zestril) 40 Mg Tab 40 MG PO HS, TAB Metaxalone (Skelaxin) 800 Mg Tab 800 MG PO QAM, TAB Metaxalone (Skelaxin) 800 Mg Tab 1600 MG PO NOON, TAB Metformin Hcl (Glucophage *) 850 Mg Tab 850 MG PO AM/NOON, 0 Refills Metoprolol Tartrate (Lopressor) (Lopressor) 50 Mg Tab 50 MG PO TID, TAB Modafinil (Provigil) 200 Mg Tab 200 MG PO AM/NOON Multivitamin (Multivitamin) Tab 1 TAB PO QAM Ondansetron Hcl (Zofran) 4 Mg Tab 4 MG PO Q6H PRN for Nausea Oxycodone HCl (Oxycontin) 10 Mg Tabcr 10 MG PO AM/HS Oxycodone Ir (Roxicodone Ir) 5 Mg Tab 5-10 MG PO QID PRN for RN, TAB Pioglitazone (Actos) 30 Mg Tab 30 MG PO QAM for 90 Days, #90 TAB 3 Refills Rosuvastatin Calcium (Crestor) 10 Mg Tab 10 MG PO QPM, TAB Senna/Docusate Sod (Senokot S) 1 Tab Tab 1 TAB PO QPM [Nasal [place]] () 2 SPRAYS LULU TIDM Discontinued Medications: Acetaminophen (Tylenol) 500 Mg Tab 1000 MG PO DIRECTED PRN for Headache, TAB Meloxicam (Mobic) 7.5 Mg Tab 7.5 MG PO AM/HS, TAB Admission Information HPI (per Admitting provider): The patient is a pleasant 56-year-old male who has been followed by Dr. Rodriguez for his left knee. He is currently treated for DJD of his left knee. He does have a history of septic arthritis in that left knee in which she underwent an irrigation and debridement for an 2016. Prior to that he had undergone a high tibial osteotomy and subsequent postoperative infection of his left lower extremity. Due to his history of septic arthritis and having the retained hardware he's been on chronic antibiotics for prophylaxis. Currently he is on Keflex daily. He was told by infectious disease that he would need to be on antibiotics daily as long as the hardware was in place. He is interested in the future if possibly undergoing a total knee arthroplasty of his left knee. At this time he is interested in removing the hardware of his left knee. He also has been treated in the past for right knee DJD with corticosteroid injections and viscosupplementation. He denies any significant pain in his left knee or limitations with range of motion currently. He would like to pursue the hardware removal to get off the chronic antibiotics and also in preparation for a total knee arthroplasty if ever needed in the future. He is scheduled for hardware removal of his left knee with Dr. Rodriguez on 2016 at the [facility]. Physical Exam (per Admitting): General Appearance: WD/WN, no apparent distress Head: normocephalic, atraumatic Eyes: normal inspection, PERRL, EOMI, sclerae normal ENT: normal ENT inspection, hearing grossly normal, TMs normal, pharynx normal Neck: supple, no adenopathy, no carotid bruits, trachea midline Respiratory/Chest: chest non-tender, lungs clear, normal breath sounds, no respiratory distress, no accessory muscle use Cardiovascular: regular rate, rhythm, no edema, no murmur, normal peripheral pulses Abdomen/GI: normal bowel sounds, non tender, soft Back: normal range of motion Extremities/Musculoskelatal: normal inspection, no calf tenderness, normal capillary refill, no pedal edema, normal range of motion, non-tender, + pertinent finding (he is able to independently do a straight leg raise of his left lower extremity. There is no effusion or tenderness about his knee. His anterior medial left knee incision is well-healed. Ligamentously, the knee is stable. Range of motion of his left knee is 0/5/125.) Neurologic/Psych: no motor/sensory deficits, alert, normal mood/affect, oriented x 3 Skin: normal color, warm/dry, no rash, + pertinent finding (some dry, scaly skin from ichthyosis present. Surgical site uninvolved.) Hospital Course Patient is a 56-year-old male who is status post a high tibial osteotomy of his left knee. After that surgery he developed a postoperative wound infection. Last year he developed a septic arthritis of his left knee. He has been on chronic suppressive antibiotics for many years. He continues to have progressive degenerative joint disease of his left knee. Due to the retained hardware he would need to be on suppressive antibiotics forever. In order to get off of the antibiotics prepare for left total knee arthroplasty he would like to proceed with hardware removal of his left proximal tibia. He was scheduled for surgery and underwent hardware removal of his left tibia on [address] Fercho Rodriguez. His surgery was performed with spinal anesthesia in peripheral nerve block. He tolerated the procedure well without any intraoperative complications. He was given 2 g of IV V Ancef for surgical prophylaxis. Postoperatively he was allowed out of bed partial weightbearing left lower extremity with the assistance of a walker or his [place] crutches. His IV Ancef was continued every 8 hours due to possible infection. Intraoperative cultures were obtained and final cultures pending upon discharge. Hospitalist consult was placed for postoperative medical management. An infectious disease consult was placed for recommendations of antibiotic management. PT consult was placed. He did well out of bed most allowed for full range of motion of his left knee. His dressings were reinforced and POD 0. On POD 1, his Hemovac was pulled at bedside. His H&H was followed postoperatively, was stable and no need for blood transfusion were necessary during this admission. He was seen by case management and plans were home at discharge with outpatient PT. He was given Lovenox for DVT prophylaxis along with teds and foot pumps. He did well with pain control after surgery. Pain medications were provided at time of discharge. Discharge instructions were provided. He was discharged to his home in stable condition on 05/11/2017. Total time spent on discharge = This includes examination of the patient, discharge planning, medication reconciliation, and communication with other providers. Discharge Instructions Discharge Instructions Date of Service May 11, 2017. Admission Reason for Admission: Left Tibia Retained Hareware Discharge Discharge Diagnosis / Problem: left tibia retained hardware Discharge Goals Goal(s): Decrease discomfort, Improve function, Increase independence Activity Recommendations Activity Limitations: per Instructions/Follow-up section Weightbearing Status: Left partial . Instructions / Follow-Up Instructions / Follow-Up DIET: * Resume previous diet. MEDICATIONS: * Please take your prescriptions as instructed at your pre-op appointment and/ or see medication discharge instructions listed above. * If concerns develop, call your physician's office at . SPECIAL CARE INSTRUCTIONS: * Ice to left knee as needed for pain and swelling. * Elevate left lower extremity above heart as needed for pain and swelling * Keep dressing clean, dry, intact until your therapy appointment on Tuesday, . Cover dressings with a bag. After dressings removed he may shower, pat incision dry. Do not scrub or soak incision. * Use crutches or walker to assist with ambulation. * You may do full range of motion of her left knee as instructed. * You may do partial weightbearing left lower extremity. * Your surgical extremity may be discolored due to prepping agents used on the skin. A bluish-green tint is a normal variant and should not cause alarm. Call your doctor at [phone] if: * Temperature above 101 degrees * Pain not relieved by pain medicine ordered * There is increased drainage or redness from any incision * You have any unanswered questions, problems or concerns. FOLLOW UP VISIT: * If not already scheduled, please call the office at to schedule a follow-up appointment. * You have a follow-up appointment scheduled with Dr. Rodriguez on 05/23/2017 at 11:45 AM * You will start physical therapy on 05/16/2017 at 10:30 AM. Current Hospital Diet Patient's current hospital diet: Diabetes Type 2 Diet Discharge Diet Recommended Diet: Regular Diet, Diabetes Type 2 Diet Procedures Procedures Performed: Left Tibial plate Removal Pending Studies Studies pending at discharge: no Medical Emergencies . Who to Call and When: Medical Emergencies: If at any time you feel your situation is an emergency, please call 911 immediately. . Non-Emergent Contact Non-Emergency issues call your: Surgeon Call Non-Emergent contact if: temperature is above 101, your pain is not controlled, your pain is concerning you, wound has increased drainage, wound has increased redness, wound has increased pain, you have any medication questions . "Provider Documentation" section prepared by Tamica Hoskins. . VTE Core Measure Inpt VTE Proph given/why not?: Enoxaparin (Lovenox)SQ (30 twice a day subcutaneous 28 days), [place] [employer] Monitoring [facility] Search Results: patient reviewed within database, no issues identified
[2017-05-11] MEDS ORDERED: CEPH500C2 PO (10:30)
[2017-05-11 11:38] VITALS: BP 144/84; PULSE 72; TEMP 36.7; O2SAT 96
== END 2017-05-11 14:48 | disposition home or self-care (01) ==
LOC: C.ACU 05:24 → C.3E 06:45 → ENRESERV 10:16
PROVIDERS: ADMIT Physical Medicine & Rehabilitation Sports Medicine; ATTEND Physical Medicine & Rehabilitation Sports Medicine
DX: M00.862 Arthritis due to other bacteria, left knee (principal); I10 Essential (primary) hypertension; E78.5 Hyperlipidemia, unspecified; E11.9 Type 2 diabetes mellitus without complications; G47.33 Obstructive sleep apnea (adult) (pediatric); F41.9 Anxiety disorder, unspecified; M81.0 Age-related osteoporosis without current pathological fracture; Z87.891 Personal history of nicotine dependence; Z79.82 Long term (current) use of aspirin; Z79.84 Long term (current) use of oral hypoglycemic drugs; Z79.899 Other long term (current) drug therapy

== ENCOUNTER → 2017-05-23 | Outpatient (CLI) | payer OTHER ==
[~2017-05-23] MED LIST changes: -ACET-1256 PO; +CLC100 PO; +LVNIS30 SQ; -MELO7.5T5 PO; +RXC5 PO
== END | disposition home or self-care (01) ==
LOC: C.RDSM 12:34
PROVIDERS: ATTEND Physical Medicine & Rehabilitation Sports Medicine
DX: Z98.890 Other specified postprocedural states (principal)

== ENCOUNTER → 2017-06-08 | Outpatient (CLI) | payer OTHER ==
--- NOTE | 2017-06-08 15:15 | DIAGNOSTIC IMAGING REPORT ---
BONE SCAN LIMITED (NM) CLINICAL HISTORY: CHRONIC PAIN T-SPINE pain TECHNIQUE: Examination is acquired following the administration of 29.5 mCi technetium 99m MDP. Planar as well as SPECT images are acquired. FINDINGS: Images demonstrate mild S shaped scoliosis of the thoracic spine. Mild increase in activity is identified at the costovertebral junctions and lateral aspects of the right vertebral bodies from T6 through T9. This consistent with degenerative change of the posterior elements. Components potentially also relate to degenerative disc change. Minimal increased activity is identified in several anterior right costochondral junctions. This presumably is related to old trauma All remaining components of the bone scan are unremarkable. COMPARISON STUDY: None IMPRESSION: Mild increase in activity of several right costovertebral junctions of the mid thoracic region as well as several anterior costochondral junctions. This is consistent with a degenerative change, possibly with an element of old posttraumatic change. The above report was generated using voice recognition software. It may contain grammatical, syntax or spelling errors. Electronically signed by: Osman Fontaine M.D. 06/08/2017 3:14 PM Dictated Date/Time: 06/08/2017 3:10 PM
== END | disposition home or self-care (01) ==
LOC: C.NUCL 10:41
PROVIDERS: ATTEND Nurse Practitioner Adult Health
DX: G89.4 Chronic pain syndrome (principal); M54.14 Radiculopathy, thoracic region; M54.6 Pain in thoracic spine

== ENCOUNTER → 2017-06-08 | Outpatient (CLI) | payer OTHER ==
--- NOTE | 2017-06-08 15:53 | DIAGNOSTIC IMAGING REPORT ---
L-SPINE MIN 4 VIEWS ROUTINE CLINICAL HISTORY: CHRONIC PAIN, HEADACHE, RADICULOPATHY COMPARISON STUDY: 07/05/2016 FINDINGS: No acute fractures are visualized. There is a grade 1 spondylolisthesis of L4 and L5. There is disc space narrowing most pronounced the L4-5 level. There is mild fecal retention. IMPRESSION: Degenerative changes most pronounced at the L4-5 level. Grade 1 spondylolisthesis of L4 on L5. Electronically signed by: Emery Burroughs M.D. 06/08/2017 3:52 PM Dictated Date/Time: 06/08/2017 3:51 PM
--- NOTE | 2017-06-08 15:54 | DIAGNOSTIC IMAGING REPORT ---
C-SPINE ROUTINE 4 OR 5 VIEWS HISTORY: Pain. Headache. CHRONIC PAIN, HEADACHE, RADICULOPATHY COMPARISON: 11/21/2012 FINDINGS: Considerable degenerative change throughout the entire cervical region. This is most prominent from C5 through C7. It is similar compared to the prior study. There is moderate osteophytic narrowing of the bulk of the neuroforamina bilaterally. Calcification of the carotid vasculature. C1-C2 complex is intact. No evidence for compression deformity. There is no fracture. No subluxation. Prevertebral soft tissues and the atlantodens interval are intact. IMPRESSION: Considerable degenerative change. Muscle spasm. No significant change from the prior study. The above report was generated using voice recognition software. It may contain grammatical, syntax or spelling errors. Electronically signed by: Osman Fontaine M.D. 06/08/2017 3:53 PM Dictated Date/Time: 06/08/2017 3:52 PM
--- NOTE | 2017-06-08 15:54 | DIAGNOSTIC IMAGING REPORT ---
THORACIC SPINE 3 VIEWS ROUTINE CLINICAL HISTORY: Chronic back pain COMPARISON STUDY: October 2012 FINDINGS: There are moderate multilevel degenerative changes. No acute fractures or subluxations are visualized. There is an old superior endplate T11 deformity. The paraspinal line is not displaced. IMPRESSION: Moderate multilevel degenerative change. No acute fractures identified. Electronically signed by: Emery Burroughs M.D. 06/08/2017 3:53 PM Dictated Date/Time: 06/08/2017 3:52 PM
== END | disposition home or self-care (01) ==
LOC: C.RAD 15:06
PROVIDERS: ATTEND Nurse Practitioner Adult Health
DX: M54.12 Radiculopathy, cervical region (principal); R51 Headache; G89.4 Chronic pain syndrome; M54.14 Radiculopathy, thoracic region; M54.6 Pain in thoracic spine; M47.816 Spondylosis without myelopathy or radiculopathy, lumbar region

== ENCOUNTER → 2017-10-12 | Day surgery (SDC) | payer OTHER ==
[2017-09-15 07:51] VITALS: Ht 170.2 cm; Wt 103.6 kg
[~2017-10-12] VITALS: Ht 170.2 cm; Wt 103.6 kg
[~2017-10-12] MED LIST changes: +ACET-1256 PO; -ACET1TAB84 PO; -AMLO-110 PO; +AMLO-114 PO; +AMPH1TAB58 PO; +AMPH20CA3 PO; +AMT/25 PO; -AMT10 PO; +ASPCH81X PO; -ASPI-435 PO; -BACL10TA PO; -CALC-20 PO; +CALC-393 PO; -CRS/10 PO; +DEXT30TA7 PO; -DIPH50TA10 PO; -FLUO40CA8 PO; -GABA1CAP4 PO; +GABA1CAP5 PO; -GLC850 PO; +HYDR25CA PO; +IPRA0.03 NAE; +LACT12CR TOP; -LACT12LO28 TOP; -LIRA18IN INJ; +LIRA18IN SC; +LISI-794 PO; -LISI40TA PO; +LRS20 PO; -LVNIS30 SQ; +MELO7.5T5 PO; +METF-383 PO; -MODA1TAB PO; -MULT-506 PO; +MULTIVITAMIN PO; -NASAL SPRAY NAE; -NZRSHM TOP; +ROSU20TA PO; -RXC5 PO; -SENN-65 PO
== END | disposition home or self-care (01) ==
LOC: C.PAT 13:29 → EDSTATUS 15:15
PROVIDERS: ATTEND Physical Medicine & Rehabilitation
DX: M46.1 Sacroiliitis, not elsewhere classified (principal)

== ENCOUNTER → 2017-11-03 | Outpatient (CLI) | payer OTHER ==
--- NOTE | 2017-11-03 16:45 | DIAGNOSTIC IMAGING REPORT ---
MRI LUMBAR SPINE W/O CONTRAST CLINICAL HISTORY: Spinal stenosis. Sacral fracture. TECHNIQUE: Sagittal and axial T1, T2 and STIR images were obtained. Coronal T1 and STIR images were also acquired COMPARISON STUDY: Conventional radiographic study dated 06/08/2017 OBSERVATIONS: The vertebral bodies and posterior elements appear intact. There is no abnormal bony signal present to suggest a marrow replacement process. No sacral fractures are evident. There is nonspecific rectal wall thickening. Clinical correlation is advocated as a rectal neoplasm cannot be excluded. L1-2: There is a mild circumferential disc bulge, slightly asymmetric to the right. There is no significant spinal or foraminal stenosis L2-3: No disc protrusions or extrusions. No evidence of spinal canal or neural foraminal compromise. L3-4: No disc protrusions or extrusions. No evidence of spinal canal or neural foraminal compromise. L4-5: There is a right posterior lateral disc extrusion. The disc material likely impinges on the exiting right L4 nerve root. There is mild to moderate spinal canal narrowing. There is facet joint arthropathy. L5-S1: No disc protrusions or extrusions. No evidence of spinal canal or neural foraminal compromise. There is mild facet joint arthropathy No abnormalities of the conus are visualized. There is slight prominence of CSF density anterior to the proximal cauda equina at the L1 level. This likely represents a flow related artifact. IMPRESSION: 1. Right-sided extruded disc herniation at the L4-5 level. The disc material likely impinges on the exiting right L4 nerve root. There is mild to moderate spinal canal narrowing at this level. There is facet joint arthropathy. 2. Nonspecific rectal wall thickening. Clinical correlation in this regard is advocated Electronically signed by: Emery Burroughs M.D. 11/03/2017 4:44 PM Dictated Date/Time: 11/03/2017 4:34 PM
== END | disposition home or self-care (01) ==
LOC: C.MRIBC 14:59
PROVIDERS: ATTEND Physical Medicine & Rehabilitation
DX: M51.16 Intervertebral disc disorders with radiculopathy, lumbar region (principal); S32.130A Nondisplaced Zone III fracture of sacrum, initial encounter for closed fracture; X58.XXXA Exposure to other specified factors, initial encounter

== ENCOUNTER → 2017-11-16 | Outpatient (CLI) | payer OTHER ==
--- NOTE | 2017-11-17 07:08 | PAP/PSG TECHNICIAN REPORT ---
[facility] Business Analyst Sales Operations Polysomnogram Report Study name: None Report date: 11/17/2017 Study date: 11/16/2017 Referring Physician: Altagracia Kendrick Name: EMILY PELAEZ Interpreting Physician: Emily Hodges M.D. Date of : 1960 Business Analyst Sales Operations: Maida Lambert, PSGT. Sex: Male Age: 56 StudyType: PSG Weight: 228 lbs Height: 56 years, Height 5' 7" Neck Circum:18.5 inches BMI: 35.71 Medications: SEE LIST OF 39 MEDICATIONS IN CHART Patient History 56-YEAR-OLD MALE IN ROOM 7, PRESENTS FOR A TIRATION STUDY, PT. STATES THAT HIS DOWNLOAD READINGS ARE SHOWING AN AHI OF 17.7, HE DOSENT FEEL RESTED UPON WAKING, AND STATES THAT HE TAKES ALOT OF NARCODICS TAT CAUSE HIM TO BE DROWSEY. HE ALSO STATES THAT HE HAS SEASONAL DEPRESSION.ESS= 11, NECK = 18.5 INCHES Parameters Monitored NPSG: E1-M2, E2-M1, Fp1-M2, Fp2-M1, F3-M2, F4-M2, F4-M1, C3-M2, C4-M2, C4-M1, O1-M2, O2-M2, O2-M1, T3-M2, T4-M1, P3-M2, P4-M1, CHIN1, CHIN2, HR, EKG, Legs, PFLOW, SNOR, FLOW, CFLOW, Tidal Volume, THOR, ABDO, SpO2, PLTH, CPRESS, ETCO2 Wave, ETCO2, pH Sleep Architecture Sleep Stages Time at Lights Off 11:10:05 PM STAGES Time (min.) TST (%) Time at Lights On 5:30:05 AM Wake 47.0 -- Total Recording Time (TRT) 379.50 min. N1 8.0 2 Total Sleep Period (TSP) 370.0 min. N2 215.5 65 Total Sleep Time (TST) 332.5min. N3 29.0 9 Awake Time 47.0 min. REM 80.0 24 Wake after Sleep Onset 37.5 min. Sleep Efficiency (SE) 88 % Sleep Onset Latency (BELLO) 10.0 min. Number of Stage 1 Shifts None Awakenings 8 Stage Changes 39 Number of REM periods 3 REM 80.0 24 REM Latency 99.5 min. NREM 252.5 76 Body Position Analysis Supine Right Left Side Prone Vertical Total Sleep Time (min.) 379.5 0.0 0.0 0.00 0.0 0.0 Total Sleep Time (%) 100% 0% 0% 0 0% N/A% Total Sleep Time REM (min.) 80.0 0.0 0.0 None 0.0 0.0 Total Sleep Time NREM (min.) 252.5 0.0 0.0 None 0.0 0.0 Intermittent Wake (min.) 47.0 0.0 0.0 None 0.0 0.0 Total Sleep Period (%) 100% None None None None None Arousals Myoclonus (PLM) * Events Count Index Events Count Index Spontaneous 45 8 Events Awake (PLMW) 0 0.0 Respiratory 4 0.7 Events Asleep w/ Arousal (PLMA) 3 0.5 PLM 3 1 Events Asleep w/o Arousal (PLMS) 68 12.3 Snoring 7 1 Total Asleep 71 12.8 Total 59 11 Total 71 11 Respiratory Analysis * CA OA MA CH H RERA Total Count 11 2 0 0 55 0 68 Index 2.0 0.4 0.0 0 9.9 0 12.3 Mean Duration 21.0 13.4 0.0 0.00 16.4 0.0 17.0 Longest Duration 30.8 15.1 0.0 0.00 0.0 0.0 30.8 Respiratory Event Summary Total Supine ~Supine Right Left Prone REM NREM Apneas Count 13 13 N/A N/A N/A N/A 4 9 Index 2.3 2 N/A N/A N/A N/A 3 2 Hypopneas (4% Desat) Count 55 55 N/A N/A N/A N/A 10 45 Index 9.9 9.9 N/A N/A N/A N/A 7.5 10.7 Apneas & All Hypopneas Count 68 68 N/A N/A N/A N/A 14 54 Index 12.3 12 N/A N/A N/A N/A 10.5 12.8 Respiratory Events (Engineering Illustrator+All Hyp+RERA) Count 68 68 N/A N/A N/A N/A 14 54 Index 12.3 12 N/A N/A N/A N/A 10.5 12.8 Respiratory Related Arousal Count 4 68 N/A N/A N/A N/A 0 4 Index 0.7 1 N/A N/A N/A N/A 0 1 Snoring Analysis Supine Right Left Prone REM NREM Total Snore duration 2.8 min Snores count 68 N/A N/A N/A 6 62 68 Snore mean duration 2.5 Sec Snores index 12 N/A N/A N/A 4.5 14.7 12.3 TST with snoring (%) 0.8% Desaturation Event Summary: Minimum %SpO2 Event Count Mean/Min/Max Duration(sec.) Desaturation Index % Time In Bed > 90 105 20.1 / 5.8 / 58.8 20.3 81.7 86 - 90 13 13.8 / 5.8 / 30.5 11.8 17.5 81 - 85 0 N/A 0.0 0.8 76 - 80 0 N/A 0.0 0.1 71 - 75 0 N/A 0.0 0.0 66 - 70 0 N/A 0.0 0.0 61 - 65 0 N/A 0.0 0.0 56 - 60 0 N/A 0.0 0.0 51 - 55 0 N/A 0.0 0.0 < 50 0 N/A 0.0 0.0 Total REM NREM Awake <50% 0.0 min. 0.0 min. 0.0 min. 0.0 min. 51 - 60% 0.0 min. 0.0 min. 0.0 min. 0.0 min. 61 - 70% 0.0 min. 0.0 min. 0.0 min. 0.0 min. 71 - 80% 0.5 min. 0.0 min. 0.4 min. 0.1 min. 81 - 90% 69.1 min. 8.0 min. 58.7 min. 2.3 min. 91 - 100% 309.9 min. 72.0 min. 193.4 min. 44.5 min. Average 93 93 92 93 Minimum SpO2 79 85 79 79 Desaturation Event Index 16.9 18.8 19.5 0.0 # Desat. Events below 89% 59 11 48 0 Time(%) with Saturation below 89% 3.5 0.5 2.8 0.2 Time(min.) with Saturation below 89% 13.2 2.0 10.5 0.7 Heart Rate Analysis End Tidal CO2 Analysis Min (bpm) Max (bpm) Average (bpm) TSP (mins) % of TSP Awake 66 84 72 Above 55 mmHg 0.0 0.0 NREM 63 86 73 50-55 mmHg 0.0 0.0 REM 68 84 78 45-50 mmHg 332.5 100.0 Overall 63 86 74 40-45 mmHg 0.0 0.0 35-40 mmHg 0.0 0.0 30-35 mmHg 0.0 0.0 Average ETCO2 0.0 Supplemental O2 Values Minimum O2 level: None Value Start Time End Time Business Analyst Sales Operations Comments PAP Study: slept in the right, left, supine and prone positions. No cardiac arrhythmia or PLM's noted. No bruxism noted. CPAP was initiated at +4 CMH2O and up-titrated to an optimal level of +16 CMH2O, which nearly eliminated all respiratory events and snoring. Patient brought his mask and it was used during titration Mr. Pelaez awoke to use the restroom zero times during the night. stated, I did sleep as well as I do when I am in my own bed. The final report will be interpreted and signed by a sleep physician. The completed physician report will then be placed in the patient medical record. Patient seemed to sleep well, he did wake a few times. He used a nasal mask and was able to keep his mouth closed during treatment. Therapy Event: Therapy (cm H20) 8 9 11 12 13 14 15 16 Total Time at Pressure (min.) 38.6 62.6 14.5 15.4 21.1 141.7 61.9 23.7 TST at Pressure (min.) 29.1 58.6 14.5 15.4 20.6 122.2 48.4 23.7 # Periods 1 1 1 1 1 1 1 1 Sleep Onset (min.) 10.0 0.0 0.0 0.0 0.0 0.0 0.0 0.0 REM Onset (min.) N/A N/A 7.8 0.0 0.0 N/A 0.6 N/A Sleep Efficiency % 75 93 100 100 97 86 78 100 Wakefulness (%) 24.6 6.4 0.0 0.0 2.4 13.8 21.8 0.0 Wakefulness (min.) 9.5 4.0 0.0 0.0 0.5 19.5 13.5 0.0 NREM 1 (%) 9.1 2.4 0.0 0.0 0.0 1.1 2.4 0.0 NREM 1 (min.) 3.5 1.5 0.0 0.0 0.0 1.5 1.5 0.0 NREM 2 (%) 66.4 87.2 53.5 0.0 5.6 66.5 13.6 100.0 NREM 2 (min.) 25.6 54.6 7.8 0.0 1.2 94.2 8.4 23.7 NREM 3 (%) 0.0 4.0 0.0 0.0 0.0 18.7 0.0 0.0 NREM 3 (min.) 0.0 2.5 0.0 0.0 0.0 26.5 0.0 0.0 REM (%) 0.0 0.0 46.5 100.0 92.0 0.0 62.2 0.0 REM (min.) 0.0 0.0 6.7 15.4 19.4 0.0 38.5 0.0 # Arousals 11 19 5 6 3 10 5 0 Arousal Index 22.6 19.5 20.7 23.4 8.7 4.9 6.2 0.0 # Snore 13 20 1 0 1 23 9 1 Snore Index 26.8 20.5 4.1 0.0 2.9 11.3 11.1 2.5 AHI 22.6 29.7 24.9 11.7 2.9 1.5 17.3 2.5 AHI Supine 22.6 29.7 24.9 11.7 2.9 1.5 17.3 2.5 AHI Non-Supine N/A N/A N/A N/A N/A N/A N/A N/A NREM AHI 22.6 29.7 23.2 N/A 0.0 1.5 42.3 2.5 REM AHI N/A N/A 26.7 11.7 3.1 N/A 10.9 N/A RDI 22.6 29.7 24.9 11.7 2.9 1.5 17.3 2.5 # Obstructive 0 0 2 0 0 0 0 0 # Central Ap 1 4 0 1 1 1 3 0 # Mixed 0 0 0 0 0 0 0 0 # Hypopneas 10 25 4 2 0 2 11 1 RERAS 0 0 0 0 0 0 0 0 Total Respiratory Events 11 29 6 3 1 3 14 1 Time Below SpO2 89.00% (min.) 2.8 6.2 2.2 0.6 0.1 0.1 0.4 0.0 Mean NREM SpO2 (%) 91 90 90 N/A 94 93 94 94 Mean REM SpO2 (%) N/A N/A 90 92 93 N/A 93 N/A Mean Sleep SpO2 (%) 91 90 90 92 93 93 94 94 Min NREM SpO2 (%) 84 79 79 N/A 91 88 89 89 Min REM SpO2 (%) N/A N/A 86 86 88 N/A 85 N/A Position Supine (min.) 29.1 58.6 14.5 15.4 20.6 122.2 48.4 23.7 Position Non-supine (min.) 0.0 0.0 0.0 0.0 0.0 0.0 0.0 0.0 LM Index Sleep 10.3 15.4 24.9 39.0 20.4 4.9 22.3 0.0 LM Index NREM 10.3 15.4 7.7 N/A 50.5 4.9 0.0 0.0 LM Index REM N/A N/A 44.6 39.0 18.6 N/A 28.1 N/A Mean Heart Rate (bpm) 80 77 75 81 79 70 74 68 Min Heart Rate (bpm) 73 70 69 76 73 65 66 63
--- NOTE | 2017-11-18 13:43 | POLYSOMNOGRAPH REPORT ---
CLINICAL DATA: A 56-year-old male with BMI of 35.71 referred by Altagracia Kendrick. He is currently on CPAP at 15 cm of water pressure, but is having a worsening AHI on his download. SLEEP ARCHITECTURE: Total sleep period was 370 minutes. Total sleep time was 332.5 minutes divided between 252.5 minutes of non-REM sleep and 80 minutes of REM sleep. Sleep onset latency was 10 minutes. REM latency was 99.5 minutes. Sleep efficiency was 88%. Wake after sleep onset was 37.5 minutes. Sleep consisted of stage N1 2%, stage N2 65%, stage N3 9%, and REM 24%. AROUSAL DATA: Fifty-nine arousals were recorded for an index of 11 per hour. Forty-five were spontaneous. PLM DATA: Seventy-one limb movements during sleep were noted for an index of 12.8 per hour with arousal index of 0.5 per hour. RESPIRATORY DATA: The AHI was 12.3. There were 11 central and 2 obstructive apneic episodes. The longest apneic episode was 30.8 seconds. There were 55 hypopneic episodes with a mean duration of 16.4 seconds. OXIMETRY DATA: Nocturnal hypoxemia was seen. Oxygen pooja 79%. Mean saturation was 93%. Time below 89% was 13 minutes. EKG: Heart rates ranged from 63-86 beats per minute. No arrhythmias were noted. HOME HEALTH SPEECH THERAPIST'S COMMENTS AND TREATMENT SUMMARY: The patient slept in the right, left, supine and prone positions. He used his own nasal mask. He was started on CPAP and was titrated up to his final pressure of 16 cm water pressure. At this final pressure setting, he slept for 22.7 minutes with an AHI of 2.5. IMPRESSION: Obstructive sleep apnea corrected with CPAP 16 cm of water pressure. RECOMMENDATIONS: The patient should have his CPAP adjusted to 16 cm water pressure with followup with compliance and effectiveness data within 90 days. [facility]
== END | disposition home or self-care (01) ==
LOC: C.NEUR 21:00
PROVIDERS: ATTEND Nurse Practitioner Family
DX: G47.33 Obstructive sleep apnea (adult) (pediatric) (principal)

== ENCOUNTER 2018-05-30 05:22 | Inpatient (IN) | payer OTHER ==
[2018-04-19 12:16] VITALS: BMI 37.0
--- NOTE | 2018-05-08 13:22 | PAT Medication Instructions ---
Service Date May 08, 2018. Current Home Medication List Acetaminophen (Tylenol), 500 MG PO Q6 PRN for PRN Acetaminophen (Tylenol Arthritis Ext Rel), 1,300 MG PO QPM PRN for Pain Amitriptyline HCl (Amitriptyline HCl), 1 TAB PO HS Amlodipine (Norvasc), 10 MG PO HS Amphetamine-Dextroamphetamine 20MG (Adderall Xr 20MG), 20 MG PO QAM Amphetamine-Dextroamphetamine 5MG (Adderall 5MG), 2.5 MG PO QDD PRN for PRN Aspirin (Aspirin Chewable), 81 MG PO HS Baclofen (Baclofen), 3 TAB PO HS Bisacodyl (Dulcolax), 1 TAB PO HS Calcium Carbonate-Cholecalcife (Calcium Plus Vitamin D3), 1 TAB PO QAM Cephalexin Monohydrate (Keflex), 500 MG PO BID Dextromethorphan-Guaifenesin (Mucinex Dm), 1 TAB PO HS Docusate Sodium (Docusate Sodium), 100 MG PO BID Fexofenadine Hcl (Carmen Allergy), 1 TAB PO QDD Fluoxetine (Prozac), 40 MG PO QLUNCH Fluoxetine HCl (Fluoxetine HCl), 20 MG PO QAM Fluticasone Propionate (Nasal) (Flonase Allergy Relief), 1-2 SPRAY LULU HS Gabapentin (Neurontin), 400 MG PO TID Hydroxyzine Pamoate (Vistaril), 1-2 CAP PO Q6 PRN for Itching Indapamide (Indapamide), 1 TAB PO QDD Ipratropium [place] (Nasal) (Ipratropium [place]), 1-2 SPRAY LULU AC Lactic Acid (Ammonium Lactate) (Lac-Hydrin), 1 APPLN TOP BID PRN for DRY SKIN Liraglutide (Victoza), 1.2 MG SC QAM Lisinopril (Zestril), 40 MG PO HS Meloxicam (Mobic), 7.5 MG PO BID Metaxalone (Skelaxin), 800 MG PO QAM Metaxalone (Skelaxin), 1,600 MG PO NOON Metformin Hcl (Glucophage), 850 MG PO BID Metoprolol Tartrate (Lopressor) (Lopressor), 50 MG PO BID Multiple Vitamin (Multi Vitamin), 1 TAB PO QDL Ondansetron Hcl (Zofran), 4-8 MG PO Q6H PRN for Nausea Oxycodone HCl (Oxycontin), 1 TAB PO BID Oxycodone Ir (Roxicodone Ir), 5-10 MG PO QID PRN for Pain Pioglitazone (Actos), 1 TAB PO QAM Rosuvastatin Calcium (Crestor), 20 MG PO QPM Tizanidine (Tizanidine HCl), 6 MG PO HS Medication Instructions For Your Scheduled Surgery - Check with surgeon for instructions: Meloxicam (Mobic), 7.5 MG PO BID - Continue as directed: Cephalexin Monohydrate (Keflex), 500 MG PO BID - Hold the following medications 24 hours prior to surgery: Lactic Acid (Ammonium Lactate) (Lac-Hydrin), 1 APPLN TOP BID PRN for DRY SKIN - Hold the following medications the morning of surgery: Pioglitazone (Actos), 1 TAB PO QAM Multiple Vitamin (Multi Vitamin), 1 TAB PO QDL Metformin Hcl (Glucophage), 850 MG PO BID Metaxalone (Skelaxin), 800 MG PO QAM Metaxalone (Skelaxin), 1,600 MG PO NOON Docusate Sodium (Docusate Sodium), 100 MG PO BID Calcium Carbonate-Cholecalcife (Calcium Plus Vitamin D3), 1 TAB PO QAM Amphetamine-Dextroamphetamine 20MG (Adderall Xr 20MG), 20 MG PO QAM Amphetamine-Dextroamphetamine 5MG (Adderall 5MG), 2.5 MG PO QDD PRN for PRN - Take the following medications the morning of surgery with a sip of water: Ondansetron Hcl (Zofran), 4-8 MG PO Q6H PRN for Nausea (okay to take up to 4 hours prior to surgery if needed) Oxycodone HCl (Oxycontin), 1 TAB PO BID (okay to take up to 4 hours prior to surgery if needed) Acetaminophen (Tylenol), 500 MG PO Q6 PRN for PRN (okay to take up to 4 hours prior to surgery if needed) Acetaminophen (Tylenol Arthritis Ext Rel), 1,300 MG PO QPM PRN for Pain (okay to take up to 4 hours prior to surgery if needed) Oxycodone Ir (Roxicodone Ir), 5-10 MG PO QID PRN for Pain (if needed) Metoprolol Tartrate (Lopressor) (Lopressor), 50 MG PO BID Liraglutide (Victoza), 1.2 MG SC QAM Ipratropium [place] (Nasal) (Ipratropium [place]), 1-2 SPRAY LULU AC Hydroxyzine Pamoate (Vistaril), 1-2 CAP PO Q6 PRN for Itching (if needed) Fluoxetine HCl (Fluoxetine HCl), 20 MG PO QAM Gabapentin (Neurontin), 400 MG PO TID Fluoxetine (Prozac), 40 MG PO QLUNCH - Take the following medications as scheduled the night before surgery: Tizanidine (Tizanidine HCl), 6 MG PO HS Rosuvastatin Calcium (Crestor), 20 MG PO QPM Ondansetron Hcl (Zofran), 4-8 MG PO Q6H PRN for Nausea (if needed) Oxycodone HCl (Oxycontin), 1 TAB PO BID Oxycodone Ir (Roxicodone Ir), 5-10 MG PO QID PRN for Pain (if needed) Metoprolol Tartrate (Lopressor) (Lopressor), 50 MG PO BID Metformin Hcl (Glucophage), 850 MG PO BID Lisinopril (Zestril), 40 MG PO HS Ipratropium [place] (Nasal) (Ipratropium [place]), 1-2 SPRAY LULU AC Indapamide (Indapamide), 1 TAB PO QDD Hydroxyzine Pamoate (Vistaril), 1-2 CAP PO Q6 PRN for Itching (if needed) Fluticasone Propionate (Nasal) (Flonase Allergy Relief), 1-2 SPRAY LULU HS Gabapentin (Neurontin), 400 MG PO TID Dextromethorphan-Guaifenesin (Mucinex Dm), 1 TAB PO HS Docusate Sodium (Docusate Sodium), 100 MG PO BID Fexofenadine Hcl (Carmen Allergy), 1 TAB PO QDD Aspirin (Aspirin Chewable), 81 MG PO HS Baclofen (Baclofen), 3 TAB PO HS Bisacodyl (Dulcolax), 1 TAB PO HS Amphetamine-Dextroamphetamine 5MG (Adderall 5MG), 2.5 MG PO QDD PRN for PRN (if needed) Acetaminophen (Tylenol), 500 MG PO Q6 PRN for PRN (if needed) Acetaminophen (Tylenol Arthritis Ext Rel), 1,300 MG PO QPM PRN for Pain (if needed) Amitriptyline HCl (Amitriptyline HCl), 1 TAB PO HS Amlodipine (Norvasc), 10 MG PO HS If you have any questions please call us at [phone] or [phone] or [phone]
--- NOTE | 2018-05-10 11:00 | History and Physical ---
History & Physical Date & Time of Service: May 10, 2018 at 10:08 Chief Complaint: Right Knee Osteoarthritis Primary Care Physician: Rich Otoole III, M.D. History of Present Illness Source: patient Patient is a 57-year-old male who scheduled to have an elective right total knee arthroplasty with Dr. Rodriguez on May 30, 2018. He has had ongoing right knee pain times many years. Over the last 6-12 months it has progressively worsened. He does have pain in both knees, but his right knee is greater than his left. He has been having significant problems with his back as well. Started a course of the minimally invasive ablation procedure at the [facility], [place], [facility]. He states that the treatment that his had so far has helped mildly with his back pain. He also sees Dr. Chong for his back. He has a known L4-5 disc problem which started in September and resulted in what he describes as temporary paralysis and then malingering sciatica of the left and right leg. His had no issues with incontinence. He does have some persistent weakness. He states that his right knee pain consistently bothersome on a daily basis. He describes his pain as excruciating. He states that his knee gives out frequently. He does use [place] crutches to assist with ambulation which she has done for many years. He states that his pain is increased with activity and weightbearing. He does have decreased activities of daily living due to pain in his right knee. His pain with range of motion and limitation of range of motion due to pain. His had previously some effusions in his knee. Aggravating activities include walking, going up and down steps, rest, sitting in one position for too long. He also has night pain. Prior treatments include corticosteroid injections into the right knee, Visco supplementation, outpatient physical therapy and nonsteroidal anti-inflammatory drugs. Recently has not taking any nonsteroidal anti-inflammatory drugs due to his other underlying medications. Due to his failure of conservative treatment, he wishes to proceed with surgery. He feels that is affecting his life on a daily basis. Surgery has been scheduled. Past Medical/Surgical History Medical Problems: 1. Osteoarthritis of bilateral knees 2. Closed sacral fracture/coccydynia 3. History of carpal tunnel syndrome 4. History of cubital tunnel syndrome 5. Diabetes mellitus with neuropathy 6. History of septic arthritis left knee 7. Ichthyosis 8. Chronic low back pain with sciatica 9. Lumbar spondylosis 10. Obesity 11. Sleep apnea use of a CPAP machine 12. Anxiety 13. Depression which he states is pain related 14. Hypertension 15. Neck and upper back pain Surgical Problems: 1. Carpal tunnel release 2005 and 2008 2. Left knee surgery: Status post left knee arthroscopy, high tibial osteotomy , I&D and hardware removal. 3. History of left hip reconstruction, no hardware Family History FH: diabetes mellitus High cholesterol Social History Uses [place] crutches to assist with ambulation Smoking Status: Former Smoker Alcohol Use: occasionally (0-4 drinks per week) Drug Use: none Marital Status: Housing status: lives alone, other Occupational Status: disabled Immunizations History of Influenza Vaccine: Yes Influenza Vaccine Date: Aug 03, 2012 History of Tetanus Vaccine?: Yes Tetanus Immunization Date: March 02, 2006 History of Pneumococcal: No History of Hepatitis B Vaccine: Unknown Hepatitis Immunization Date: March 02, 2000 Allergies Coded Allergies: Simvastatin (Verified Allergy, Unknown, MUSCLE WEAKNESS,TINGLING, 09/15/17 ) Home Medications Scheduled Amitriptyline HCl (Amitriptyline HCl), 1 TAB PO HS Amlodipine (Norvasc), 10 MG PO DAILY at 5 p.m. Amphetamine-Dextroamphetamine 20MG (Adderall Xr 20MG), 20 MG PO QAM Aspirin (Aspirin Chewable), 81 MG PO HS Baclofen (Baclofen), 3 TAB PO HS Calcium Carbonate-Cholecalcife (Calcium Plus Vitamin D3), 1 TAB PO QAM Cephalexin Monohydrate (Keflex), 500 MG PO BID Docusate Sodium (Docusate Sodium), 100 MG PO BID Fexofenadine Hcl (Carmen Allergy), 1 TAB PO QDD Fluoxetine (Prozac), 40 MG PO QLUNCH Fluoxetine HCl (Fluoxetine HCl), 20 MG PO QAM Fluticasone Propionate (Nasal) (Flonase Allergy Relief), 1-2 SPRAY LULU HS Gabapentin (Neurontin), 400 MG PO TID Indapamide (Indapamide), 1 TAB PO QDD Ipratropium [place] (Nasal) (Ipratropium [place]), 1-2 SPRAY LULU AC Liraglutide (Victoza), 1.2 MG SC QAM Lisinopril (Zestril), 40 MG PO HS Meloxicam (Mobic), 7.5 MG PO BID Metaxalone (Skelaxin), 800 MG PO QAM Metaxalone (Skelaxin), 1,600 MG PO NOON Metformin Hcl (Glucophage), 850 MG PO BID Metoprolol Tartrate (Lopressor) (Lopressor), 50 MG PO BID Multiple Vitamin (Multi Vitamin), 1 TAB PO QDL Oxycodone HCl (Oxycontin), 1 TAB PO BID Pioglitazone (Actos), 1 TAB PO QAM Rosuvastatin Calcium (Crestor), 10 MG PO QDD Tizanidine (Tizanidine HCl), 6 MG PO HS Scheduled PRN Acetaminophen (Tylenol Arthritis Ext Rel), 1,300 MG PO QPM PRN for Pain Acetaminophen (Tylenol), 500-1,000 MG PO Q4 PRN for PRN Amphetamine-Dextroamphetamine 5MG (Adderall 5MG), 2.5 MG PO QDD PRN for PRN Hydroxyzine Pamoate (Vistaril), 1-2 CAP PO Q6 PRN for Itching Lactic Acid (Ammonium Lactate) (Lac-Hydrin), 1 APPLN TOP BID PRN for DRY SKIN Ondansetron Hcl (Zofran), 4-8 MG PO Q6H PRN for Nausea Oxycodone Ir (Roxicodone Ir), 10 MG PO QID PRN for Pain Review of Systems No history of MRSA. Constitutional: + weakness (occasionally in bilateral legs due to back pain), No fever, No chills, No sweats, No weight loss, No fatigue Eyes: No worsening of vision, No eye pain, No redness ENT: + tinnitus (left ear occasionally), No hearing loss, No unusual epistaxis , No sore throat, No dental problems, No trouble swallowing Respiratory: + dyspnea on exertion, No cough, No sputum, No wheezing, No shortness of breath, No dyspnea at rest Cardiovascular: No chest pain, No orthopnea, No edema, No claudication, No palpitations Abdomen: No pain, No nausea, No vomiting, No diarrhea, No constipation Musculoskeletal: + joint pain (bilateral knees, right greater than left. Back pain/neck pain), No swelling, No calf pain Genitourinary - Male: No hematuria, No dysuria, No urinary frequency, No urinary urgency, No urinary retention, No urinary incontinence Neurologic: + weakness, + numbness/tingling, + balance problems (due to back), No memory loss Psychiatric: + depression symptoms (due to pain), + anxiety, + substance abuse (chronic narcotic use) Endocrine: No excessive thirst, No excessive urination Hematologic / Lymphatic: No abnormal bleeding/bruising, No clotting problems Integumentary: + rash (due to ichthyosis), + itch, No new/changing skin lesions , No bleeding Allergic / Immunologic: + seasonal allergies, No frequent infections, No poor healing Physical Exam Height 169.4 cm; Weight 112.6 kg General Appearance: WD/WN, no apparent distress Head: normocephalic, atraumatic Eyes: normal inspection, PERRL, EOMI, sclerae normal ENT: normal ENT inspection, hearing grossly normal, TMs normal, pharynx normal Neck: supple, no adenopathy, thyroid normal, no carotid bruits, trachea midline Respiratory/Chest: chest non-tender, lungs clear, normal breath sounds, no respiratory distress, no accessory muscle use Cardiovascular: regular rate, rhythm, no edema, no murmur, normal peripheral pulses Abdomen/GI: normal bowel sounds, non tender, soft Back: normal inspection, no muscle spasm, + decreased range of motion Extremities/Musculoskelatal: + pertinent finding (Left leg neutral alignment. Right leg varus alignment with slight thrust. Full painless range of motion of right hip.No effusion of the right knee. Knee range of motion is 0-125. There is no significant flexion contracture. There is 1+ laxity of the MCL otherwise stable ligamentously. Positive tenderness of the medial joint line) Neurologic/Psych: no motor/sensory deficits, alert, normal mood/affect, normal reflexes, oriented x 3, + sensory deficit (Mild diminished sensation throughout bilateral feet but generally he can feel normally) Skin: normal color, warm/dry, no rash Lymphatic: no adenopathy Diagnostics Laboratory Results CBC completed in May 08, 2018: Hemoglobin 12.0, Hematocrit 35.7, platelets 165 , resulted in patient's EMR MRSA nasal swab May 08, 2018: Negative for MRSA PT/INR, PTT:10.8/1.0, 26.4 Hemoglobin A1c: 6.7 Chemistry panel: As per patient's EMR Diagnostic Radiology X-rays of bilateral knees, 4 views: There is no osteoarthritis in the left knee. Left knee neutrally aligned. Evidence of prior surgery and hardware removal on the left. On the right there is medial compartment joint space narrowing, severe osteoarthritis present bilaterally in the medial compartment, varus alignment to the right knee. No evidence of fracture. CXR normal (Performed May 08, 2018) EKG Preoperative EKG pending Impression Assessment and Plan Assessment: End-stage osteoarthritis right knee Plan: Patient is scheduled for an elective right total knee arthroplasty with Dr. Fercho Rodriguez on May 30, 2018. Risks and complications of surgery were explained to the patient and include but are not limited to infection, pain, bleeding, scarring, nerve and blood vessel damage, wound problems, weakness, stiffness, incomplete relief of symptoms, hardware failure, wear, loosening, fracture, blood clots, embolisms, heart attack, stroke and . All questions were answered and informed consent was obtained by Dr. Rodriguez. He will have preadmission testing prior to surgery and we will obtain a preoperative hemoglobin A1c, CBC, PRP, PT/PTT, type and screen, MRSA nasal swab , EKG and chest x-ray. He will also need preoperative clearance from his family physician Dr. Otoole. We will also contact Dr. Hunter and due to his history of having septic arthritis at on chronic suppressive antibiotics. Discussed the use of CHG cloths prior to surgery as well as CHG showers one week prior to surgery. He will have a Betadine nasal swab preoperatively on the day of surgery. We will use Ancef for surgical prophylaxis. We will use Lovenox for DVT prophylaxis after surgery for 2-4 weeks postoperatively. Upon discharge he would like to go home with home health versus inpatient rehabilitation depending on his postoperative needs. He does live alone but does have aides that we will be able to come in and help.Postoperative pain control be done with his chronic pain medications and any medication for breakthrough pain. He requests Toradol over any other pain medication. He does not like tramadol or morphine. To start outpatient physical therapy approximately 2 weeks after surgery. He will also follow up with Dr. Rodriguez is scheduled 10-14 days postoperatively for suture removal. All questions were answered today and he knows to call with any further problems, questions or concerns. Advanced Directives Existing Living Will: No Existing Power of Automotive Refinish Technician: No Resuscitation Status VTE Prophylaxis Will order VTE Prophylaxis: Yes
[2018-05-30] VITALS (10 sets, daily range): BP systolic 104–135; BP diastolic 63–87; PULSE 68–108; TEMP 36.4–37; O2SAT 92–98; Ht 170.2 cm; Wt 109.1 kg
[~2018-05-30] VITALS: Ht 170.2 cm; Wt 109.1 kg
[~2018-05-30 05:22] MED LIST changes: +ACET1TAB84 PO; -AMLO-114 PO; +AMLO10TA3 PO; -CALC-393 PO; +CALCCAP15 PO; -DEXT30TA7 PO; +FLUO20CA36 PO; +GABA-1220 PO; -GABA1CAP5 PO; +GENERAL ORDER PROBLEM SCH; -INDA1TAB3 PO; +INDA2.5T PO; +MULT-1027 PO; -MULTIVITAMIN PO; +OXYC-90 PO; -OXYC1TAB3 PO; +ZNF/4 PO
[2018-05-30] MEDS ORDERED: ROPIVACAINE 5MG/ML 30 ML 150 MG, BUPIVACAINE 0.5% MPF INJ 30 ML, EpINEphrine HCL INJ 0.... INFIL SCH ×6 (06:00)
[2018-05-30] MEDS ORDERED: VANCOMYCIN IV 1,750 MG in SODIUM CHLORIDE 0.9% 500ML 500 ML IV SCH (06:00)
[2018-05-30] MEDS ORDERED: LACTATED RINGER'S 1000ML 1,000 ML IV SCH ×2 (06:00)
[2018-05-30] MEDS ORDERED: ACETAMINOPHEN 500 MG TAB PO SCH (06:00)
[2018-05-30] MEDS ORDERED: LACTATED RINGER'S 1000ML 500 ML IV SCH (06:00)
[2018-05-30] MEDS ORDERED: GABAPENTIN 600 MG PO SCH (06:00)
[2018-05-30] MEDS ORDERED: TYLOTC500 PO (06:00)
[2018-05-30] MEDS ORDERED: OXYCODONE HCL 10 MG TABCR (OXYCONTIN) PO SCH (06:00)
[2018-05-30] MEDS ORDERED: CeleBREX 200 MG CAP PO SCH (06:00)
[2018-05-30] MEDS ORDERED: FAMOTIDINE 20 MG TAB PO SCH (06:00)
[2018-05-30] MEDS ORDERED: METOCLOPRAMIDE HCL 10 MG TAB PO SCH (06:00)
[2018-05-30] MEDS: CEFAZOLIN 2000MG IV PUSH 15 ML IV SCH ×2 (06:00→14:05)
[2018-05-30] MEDS ORDERED: LACTATED RINGER'S 1000ML IV SCH (06:00)
[2018-05-30] MEDS ORDERED: METO50TA16 PO (06:07)
[2018-05-30] MEDS ORDERED: ROSU20TA PO (06:12)
[2018-05-30] MEDS ORDERED: OXYC-90 PO (06:15)
[2018-05-30] MEDS ORDERED: INDA2.5T PO (06:16)
[2018-05-30] MEDS ORDERED: FENTANYL CITRATE INJ 50 MCG/1 ML 2 ML VIAL ONE (06:23)
[2018-05-30] MEDS ORDERED: MIDAZOLAM HCL 1 MG/ML 2ML VIAL ONE ×3 (06:23→09:18)
[2018-05-30] MEDS ORDERED: BUPIVACAINE 0.5 % 5 MG/1 ML PF 10ML VIAL ONE (06:24)
[2018-05-30] MEDS ORDERED: ROPIVACAINE 0.5% 5 MG/ML 30 ML VIAL ONE (06:25)
[2018-05-30] MEDS: TRANEXAMIC ACID INJ 1,000 MG x 2 Bags IV SCH ×4 (06:30→06:46)
[2018-05-30] MEDS ORDERED: POVIDONE-IODINE OP SOLN 30 ML BTL ONE (06:38)
[2018-05-30] MEDS ORDERED: SODIUM CHLORIDE 0.9% PF 50 ML VIAL ONE (06:38)
[2018-05-30] MEDS ORDERED: ORTHO JOINT ANESTHETIC ONE (06:38)
[2018-05-30] MEDS ORDERED: BACITRACIN 50000 UNIT VIAL ONE (06:39)
[2018-05-30] MEDS: CLONIDINE HCL 0.1 MG/24 HR TRANSDERM SYS TD SCH (06:42)
[2018-05-30] MEDS ORDERED: EpHEDrine SULFATE INJ 50 MG/ML AMP ONE (07:42)
[2018-05-30] MEDS ORDERED: PHENYLEPHRINE HCL INJ 10 MG/ML VIAL ONE (07:42)
[2018-05-30] MEDS ORDERED: PROPOFOL IV EMULSION 10 MG/ML 20 ML VIAL ONE ×5 (07:42→11:25)
[2018-05-30] MEDS ORDERED: ONDANSETRON INJ 2 MG/ML 2 ML VIAL IV PRN ×2 (07:45→08:15)
[2018-05-30] MEDS ORDERED: HYDROmorphone INJ 0.5 MG/0.5 ML SYR IV PRN (07:45)
[2018-05-30] MEDS ORDERED: PHENYLEPHRINE 100MCG/ML 5ML SYR IV PRN (07:45)
[2018-05-30] MEDS ORDERED: EpHEDrine SULFATE INJ 50 MG/ML AMP IV PRN (07:45)
[2018-05-30] MEDS ORDERED: ATROPINE SULFATE 0.1 MG/ML 5ML SYR IV PRN (07:45)
[2018-05-30] MEDS ORDERED: VANCOMYCIN HCL 1000MG/20ML VIAL ONE (07:48)
[2018-05-30] MEDS ORDERED: PHARMACY GLYCEMIC MGMT CONSULT PRN (08:03)
[2018-05-30] MEDS ORDERED: hydrOXYzine HCL 25 MG TAB PO PRN (08:15)
[2018-05-30] MEDS ORDERED: ALUMINUM/MAGNESIUM/SIMETH (MAALOX MAX) 30 ML UDC PO PRN (08:15)
[2018-05-30] MEDS ORDERED: CEFAZOLIN IV 2,000 MG in DEXTROSE 5% 50ML 50 ML IV SCH (08:15)
[2018-05-30] MEDS ORDERED: SOD PHOSPHATE/SOD BIPHOSPHATE ENEMA 132 ML BTL PR PRN (08:15)
[2018-05-30] MEDS ORDERED: MAGNESIUM HYDROXIDE SUSP 30 ML UDC PO PRN (08:15)
[2018-05-30] MEDS ORDERED: METOCLOPRAMIDE HCL INJ 5 MG/ML 2 ML VIAL IV PRN (08:15)
[2018-05-30] MEDS ORDERED: BISACODYL 10 MG SUPP PR PRN (08:15)
[2018-05-30] MEDS ORDERED: AMMONIUM LACTATE 12% LOTION 225 GM BTL EXT PRN (08:15)
[2018-05-30] MEDS ORDERED: OXYCODONE HCL IR 5 MG TAB (IMMEDIATE RELEASE) PO PRN (08:15)
[2018-05-30] MEDS ORDERED: TAMSULOSIN HCL 0.4 MG CAP PO PRN (08:15)
[2018-05-30] MEDS ORDERED: DiphenhydrAMINE HCL 50 MG/ML VIAL IV PRN (08:15)
[2018-05-30] MEDS ORDERED: KETOROLAC TROMETHAMINE 30 MG/ML VIAL IV. SCH (08:15)
[2018-05-30] MEDS ORDERED: ONDANSETRON INJ 2 MG/ML 2 ML VIAL ONE (08:42)
[2018-05-30] MEDS ORDERED: DEXAMETHASONE SOD INJ 4 MG/ML VIAL ONE (08:43)
[2018-05-30] MEDS ORDERED: METAXALONE 800 MG TAB PO SCH (09:00)
[2018-05-30] MEDS ORDERED: NON-FORMULARY MEDICATION (Pioglitazone (Actos) 1 TAB) PO SCH (09:00)
[2018-05-30] MEDS ORDERED: FLUOXETINE HCL 20 MG CAP PO SCH (09:00)
[2018-05-30] MEDS ORDERED: LIRAGLUTIDE 1.2 MG SC SCH (09:00)
[2018-05-30] MEDS: AMPHETAMINE ASP/SULF/DEXTRAMPH ER 20 MG CAP PO SCH (09:00)
[2018-05-30] MEDS ORDERED: METFORMIN HCL 850 MG TAB PO SCH (09:00)
[2018-05-30] MEDS ORDERED: GLUCOSE 10 TABS/TUBE PO PRN (10:00)
[2018-05-30] MEDS ORDERED: GLUCAGON FOR INJ 1 MG VIAL IM PRN (10:00)
[2018-05-30] MEDS ORDERED: CARBOHYDRATES FOR HYPOGLYCEMIA PO PRN (10:00)
[2018-05-30] MEDS ORDERED: GLUCOSE 40% GEL 15 GM TUBE PO PRN (10:00)
[2018-05-30] MEDS ORDERED: DEXTROSE 50% 50 ML SYR IV PRN (10:00)
--- NOTE | 2018-05-30 10:13 | [facility] Post Operative Brief Note ---
Immediate Operative Summary Operative Date May 30, 2018. Pre-Operative Diagnosis End-Stage Osteoarthritis of Right knee Post-Operative Diagnosis End-Stage Osteoarthritis of Right knee Procedure(s) Performed Right Total Knee Arthroplasty Surgeon Dr Rodriguez Credentialer Surgeon(s) Celi Sena PA-C, pepito urbina Estimated Blood Loss 100CC Findings Consistent with Post-Op Diagnosis Specimens A: Right Knee Bone and Tissue Drains None Anesthesia Type MAC Spinal Regional Complication(s) none Disposition Accompanied Pt To Recover: no Disposition: Recovery Room / PACU
[2018-05-30] MEDS ORDERED: VANCOMYCIN CONSULT ACTIVE PRN (10:30)
[2018-05-30] MEDS ORDERED: MoRPHine SULFATE 2 MG/ML CARP IV PRN (10:30)
[2018-05-30] MEDS ORDERED: KETOROLAC TROMETHAMINE 30 MG/ML VIAL IV. PRN (10:30)
--- NOTE | 2018-05-30 10:37 | Anesthesiology Progress Note ---
Anesthesia Post Op Note Date & Time May 30, 2018 at 10:36 Vital Signs Pain Intensity: 0 Vital Signs Past 12 Hours Date Time Temp Pulse Resp B/P (MAP) Pulse Ox O2 Delivery O2 Flow Rate FiO2 05/30/18 10:30 87 14 122/97 95 Nasal Cannula 4 05/30/18 10:21 36.3 87 16 108/87 97 Nasal Cannula 4 05/30/18 06:00 37 89 20 113/68 96 Room Air Notes Mental Status: alert / awake / arousable, participated in evaluation Pt Amnestic to Procedure: Yes Nausea / Vomiting: adequately controlled Pain: adequately controlled Airway Patency, RR, SpO2: stable & adequate BP & HR: stable & adequate Hydration State: stable & adequate Anesthetic Complications: no major complications apparent
--- NOTE | 2018-05-30 10:43 | DIAGNOSTIC IMAGING REPORT ---
R KNEE 1 OR 2 VIEWS ROUTINE CLINICAL HISTORY: AP/LATERAL IN PACU RIGHT KNEE COMPARISON: None. DISCUSSION: Total right knee arthroplasty. Good contact between prosthetic and underlying bone. Expected postoperative soft tissue change. IMPRESSION: Anatomic alignment post total right knee arthroplasty. The above report was generated using voice recognition software. It may contain grammatical, syntax or spelling errors. Electronically signed by: Osman Fontaine M.D. 05/30/2018 10:42 AM Dictated Date/Time: 05/30/2018 10:42 AM
[2018-05-30] MEDS: INSULIN ASPART 100 UNITS/ML 3 ML PEN SC SCH ×3 (11:00→21:36)
[2018-05-30] MEDS ORDERED: INSULIN GLARGINE SOLOSTAR 100 UNITS/ML 3 ML PEN SC SCH ×2 (11:00→15:00)
[2018-05-30] MEDS: METOPROLOL TARTRATE 50 MG TAB PO SCH ×2 (12:30→14:08)
[2018-05-30] MEDS: GABAPENTIN 400 MG CAP PO SCH ×2 (12:30→14:08)
[2018-05-30] MEDS: SODIUM CHLORIDE 0.9% 1000ML 1,000 ML IV SCH ×2 (12:30→21:38)
--- NOTE | 2018-05-30 12:30 | Medical Consult ---
Consultation Date of Consultation: May 30, 2018. Attending Physician: Fercho Rodriguez M.D. Reason for Consultation: Postoperative medical management History of Present Illness This is a 57-year-old white male with a significant past medical history of Type 2 diabetes mellitus, hypertension, hyperlipidemia, obstructive sleep apnea uses CPAP at HS, obesity, chronic pain syndrome, history of L knee septic arthritis chronic antibiotic therapy, ADD, depression, who presented to [facility] on 05/30/18 for elective right TKA by Dr. Rodriguez. Patient failed outpatient conservative management secondary to end-stage right knee osteoarthritis. He tolerated the procedure well with currently no postoperative complications, EBL 100 mL. Is on Lovenox 30 mg twice daily for VTE prophylaxis. Currently denies any pain, fever, chills, sweats, lightheadedness, dizziness, chest pain, shortness of breath, nausea, vomiting, diarrhea, abdominal pain. Moving bowels, passing urine adequately. Overall has an appetite, "ready for lunch." Preop lab work on 05/08/18 reveals H&H 12/ 35.7, A1c 6.7. Elicits he does have history of chronic pain syndrome secondary to low back pain followed by Dr. Chong of [facility] orthopedics. We have been consulted for medical management. Past Medical/Surgical History Medical Problems: (1) ADD (attention deficit disorder) Status: Chronic (2) Chronic pain Status: Chronic (3) Diverticulosis Status: Chronic (4) DM type 2 (diabetes mellitus, type 2) Status: Chronic (5) Dyslipidemia Status: Chronic (6) Femur fracture Permanent Comment: S/P repair Status: Chronic (7) Hypertension Status: Chronic (8) NARINDER on CPAP Status: Chronic (9) Raynaud disease Status: Chronic (10) Septic Joint on chronic antibiotic suppression therapy Surgical Problems: (1) H/O hand surgery Status: Chronic (2) History of carpal tunnel surgery Status: Chronic (3) Left tibial osteotomy Status: Chronic (4) S/P left knee arthroscopy Status: Chronic Medical Problems: (1) Chronic back pain Status: Acute (2) Chronic lumbosacral pain Status: Acute Family History FH: diabetes mellitus FH: heart disease FATHER, Onset:85 ( at 85, NH) MOTHER, Onset:53 ( at 53 NH) SISTER, Onset:52 () FH: prostate cancer BROTHER FH: rheumatoid arthritis MOTHER High cholesterol Hypertension BROTHER, Onset:43 Social History Ambulate with [employer] crutches Smoking Status: Former Smoker (Quit in 1996, 11-[id number] history) Smokeless Tobacco Use: No Alcohol Use: occasionally (0-4 drinks per week) Drug Use: none Marital Status: Housing Status: lives with significant other (Lives with girlfriend), other Occupation Status: disabled Allergies Coded Allergies: Simvastatin (Verified Allergy, Unknown, MUSCLE WEAKNESS,TINGLING, 05/30/18) Current Inpatient Medications Current Inpatient Medications Medications (Trade) Dose Ordered Sig/Geovanni Route Start Time Stop Time Status Last Admin Dose Admin Ropivacaine 150 mg/Bupivacaine HCl 30 ml/ Epinephrine HCl 0.15 mg/Ketorolac Tromethamine 30 mg/Ketamine HCl 10 mg/Sodium Chloride 91.35 ml @ 0 mls/hr PREOP INFIL 05/30/18 06:00 05/30/18 18:00 05/30/18 08:02 93.2 MLS/HR Lactated Ringer's 1,000 ml @ 15 mls/hr Q24H IV 05/30/18 06:00 05/31/18 05:59 05/30/18 05:52 15 MLS/HR Lactated Ringer's 1,000 ml @ 60 mls/hr [id number] IV 05/30/18 06:00 05/30/18 22:39 Cefazolin Sodium 15 ml @ 3.75 mls/ min PREOP IV 05/30/18 06:00 05/31/18 05:59 Acetaminophen (Tylenol Tab) 1,000 mg PREOP PO 05/30/18 06:00 05/30/18 18:00 05/30/18 06:40 1,000 MG Celecoxib (CeleBREX CAP) 200 mg PREOP PO 05/30/18 06:00 05/30/18 18:00 05/30/18 06:40 200 MG Famotidine (Pepcid Tab) 20 mg PREOP PO 05/30/18 06:00 05/30/18 18:00 05/30/18 06:40 20 MG Gabapentin (Neurontin Cap) 600 mg PREOP PO 05/30/18 06:00 05/30/18 18:00 Metoclopramide HCl (Reglan Tab) 10 mg PREOP PO 05/30/18 06:00 05/30/18 18:00 05/30/18 06:40 10 MG Oxycodone HCl (Oxycontin Tab) 10 mg PREOP PO 05/30/18 06:00 05/30/18 18:00 Clonidine HCl ([id number] 0.1mg/24hr Patch) 1 patch PREOP TD 05/30/18 06:00 06/02/18 05:59 05/30/18 06:42 1 PATCH Miscellaneous (Remove Clonidine Patch) 1 ea Q72H N/A 06/02/18 06:00 06/02/18 06:01 Tranexamic Acid 1000 mg/Sodium Chloride 110 ml @ 660 mls/hr TODAY@06,0630 IV 05/30/18 06:00 05/30/18 18:00 05/30/18 06:46 660 MLS/HR Lactated Ringer's 1,000 ml @ 60 mls/hr [id number] IV 05/30/18 06:00 05/30/18 22:39 Vancomycin HCl 1750 mg/Sodium Chloride 535 ml @ 200 mls/hr PREOP IV 05/30/18 06:00 05/31/18 05:59 05/30/18 05:53 200 MLS/HR Hydromorphone HCl (Dilaudid Inj) 0.5 mg Q5M PRN IV 05/30/18 07:45 05/30/18 13:45 Ondansetron HCl (Zofran Inj) 4 mg ONE PRN IV 05/30/18 07:45 05/30/18 13:45 Ephedrine Sulfate (EpHEDrine SULFATE INJ) 5 mg Q5M PRN IV 05/30/18 07:45 05/30/18 13:45 Atropine Sulfate (Atropine Sulfate 0.1mg/ml Inj) 0.5 mg Q1M PRN IV 05/30/18 07:45 05/30/18 13:45 Phenylephrine HCl (Cristiano-Synephrine 500MCG/5ML Syr) 100 mcg Q5M PRN IV 05/30/18 07:45 05/30/18 13:45 Sodium Chloride 1,000 ml @ 100 mls/hr Q10H IV 05/30/18 08:03 05/31/18 08:02 UNV Cefazolin Sodium 2000 mg/Dextrose 65 ml @ 100 mls/hr Q8H IV 05/30/18 08:15 05/30/18 16:53 UNV Celecoxib (CeleBREX CAP) 200 mg BID PO 05/30/18 09:00 06/29/18 08:59 UNV Oxycodone HCl (Oxycontin Tab) 10 mg Q12 PO 05/30/18 09:00 06/13/18 08:59 UNV Acetaminophen (Tylenol Tab) 1,000 mg Q8H PO 05/30/18 08:15 06/29/18 08:14 UNV Magnesium Hydroxide (Milk Of Magnesia Susp) 30 ml Q6H PRN PO 05/30/18 08:15 06/29/18 08:14 Bisacodyl (Dulcolax Supp) 10 mg DAILY PRN NV 05/30/18 08:15 06/29/18 08:14 Sodium Biphosphate/ Sodium Phosphate (Fleet Enema) 132 ml DAILY PRN NV 05/30/18 08:15 06/29/18 08:14 Docusate Sodium (coLACE CAP) 100 mg BID PO 05/30/18 09:00 06/29/18 08:59 UNV Diphenhydramine HCl (Benadryl Cap) 25 mg Q8H PRN PO 05/30/18 08:15 06/29/18 08:14 Diphenhydramine HCl (Benadryl Inj) 25 mg Q8H PRN IV 05/30/18 08:15 06/29/18 08:14 Al Hydrox/Mg Hydrox/Simethicone (Maalox Max Susp) 15 ml Q4H PRN PO 05/30/18 08:15 06/29/18 08:14 Multivitamins (Multivitamin Tab) 1 tab QAM PO 05/30/18 09:00 06/29/18 08:59 UNV Ondansetron HCl (Zofran Inj) 4 mg Q6H PRN IV 05/30/18 08:15 06/29/18 08:14 Metoclopramide HCl (Reglan Inj) 10 mg Q6H PRN IV 05/30/18 08:15 06/29/18 08:14 Pantoprazole Sodium (Protonix Tab) 40 mg QAM PO 05/30/18 09:00 06/29/18 08:59 UNV Tamsulosin HCl (Flomax Cap) 0.4 mg QAM PRN PO 05/30/18 08:15 06/29/18 08:14 Dexamethasone (Decadron Tab) 8 mg ONE PO 05/31/18 07:30 05/31/18 07:31 UNV Amitriptyline HCl (Elavil Tab) 25 mg HS PO 05/30/18 21:00 06/29/18 20:59 UNV Amphetamine Aspartate/ Amphetam Sulf (Amphetamine Aspartate/Amphe Sulf/Dextramphet) 20 mg QAM PO 05/30/18 09:00 06/13/18 08:59 UNV Aspirin (Aspirin Chew) 81 mg HS PO 05/30/18 21:00 06/29/18 20:59 UNV Baclofen (Lioresal Tab) 60 mg HS PO 05/30/18 21:00 06/29/18 20:59 UNV Cephalexin Monohydrate (Keflex Cap) 500 mg QAM PO 05/30/18 09:00 06/29/18 08:59 UNV Fluoxetine HCl (Prozac Cap) 40 mg DAILY PO 05/30/18 12:00 06/29/18 11:59 UNV Fluoxetine HCl (Prozac Cap) 20 mg QAM PO 05/30/18 09:00 06/29/18 08:59 UNV Fluticasone Propionate (Flonase Nasal [place]) 2 sprays HS LULU 05/30/18 21:00 06/29/18 20:59 UNV Gabapentin (Neurontin Cap) 400 mg QAM PO 05/30/18 09:00 06/29/18 08:59 UNV Lisinopril (Zestril Tab) 40 mg HS PO 05/30/18 21:00 06/29/18 20:59 UNV Metaxalone (Skelaxin Tab) 1,600 mg DAILY PO 05/30/18 12:00 06/29/18 11:59 UNV Metaxalone (Skelaxin Tab) 800 mg QAM PO 05/30/18 09:00 06/29/18 08:59 UNV Metoprolol Tartrate (Lopressor Tab) 50 mg QAM PO 05/30/18 09:00 06/29/18 08:59 UNV Rosuvastatin Calcium (Crestor Tab) 10 mg QDD PO 05/30/18 17:45 06/29/18 17:59 UNV Tizanidine HCl (Zanaflex Tab) 6 mg HS PO 05/30/18 21:00 06/29/18 20:59 UNV Non-Formulary Medication (Amphetamine-Dextroamphetamine 5MG (Adderall 5MG)) 2.5 mg QDD PRN PO 05/30/18 08:15 06/29/18 08:14 UNV Non-Formulary Medication (Calcium Carbonate-Cholecalcife (Calcium Plus Vitamin D3)) 1 tab QAM PO 05/30/18 09:00 06/29/18 08:59 UNV Hydroxyzine HCl (Vistaril Tab) 1-2 tabs po every 6 hours... Q6 PRN PO 05/30/18 08:15 06/29/18 08:14 Non-Formulary Medication (Indapamide ) 1 tab QDD PO 05/30/18 17:45 06/29/18 17:59 UNV Non-Formulary Medication (Ipratropium [place] ) per pharmacy AC LULU 05/30/18 12:00 06/29/18 11:59 UNV Ammonium Lactate (Lac-Hydrin) 1 appl BID PRN EXT 05/30/18 08:15 06/29/18 08:14 Cephalexin Monohydrate (Keflex Cap) 500 mg DAILY PO 05/30/18 12:00 06/29/18 11:59 UNV Gabapentin (Neurontin Cap) 400 mg QDL PO 05/30/18 11:00 06/29/18 10:59 UNV Gabapentin (Neurontin Cap) 400 mg UD PO 05/30/18 18:00 06/29/18 17:59 UNV Metaxalone (Skelaxin Tab) 800 mg QAM PO 05/30/18 09:00 06/29/18 08:59 UNV Metoprolol Tartrate (Lopressor Tab) 50 mg QDL PO 05/30/18 12:00 06/29/18 11:59 UNV Miscellaneous Information (Consult Glycemic Management Pharmacy) 1 ea UD PRN N/A 05/30/18 08:03 06/29/18 08:02 Glucose (Glucose 40% Gel) 15-30 GRAMS 15 GRAMS... UD PRN PO 05/30/18 10:00 06/29/18 09:59 Glucose (Glucose Chew Tab) 4-8 Tablets 4 Tabl... UD PRN PO 05/30/18 10:00 06/29/18 09:59 Dextrose (Dextrose 50% 50ML Syringe) 25-50ML 25ML FOR ... UD PRN IV 05/30/18 10:00 06/29/18 09:59 Glucagon (Glucagon Inj) 1 mg UD PRN IM 05/30/18 10:00 06/29/18 09:59 Carbohydrates (Carbohydrates For Hypoglycemia) 15-30 GRAMS 15 grams if BSG 54-69... UD PRN PO 05/30/18 10:00 06/29/18 09:59 Insulin Aspart (novoLOG ASPART) SLIDING SCALE G... ACHS SC 05/30/18 11:00 06/29/18 10:59 Ketorolac Tromethamine (Toradol Inj) 30 mg Q6H PRN IV. 05/30/18 10:30 06/04/18 10:29 UNV Oxycodone HCl (Roxicodone Immediate Rel Tab) 10 mg Q4H PRN PO 05/30/18 10:30 06/13/18 10:29 UNV Enoxaparin Sodium (Lovenox Inj) 30 mg Q12H SQ 05/30/18 22:00 06/27/18 21:59 UNV Morphine Sulfate (MoRPHine SULFATE INJ) 2mg for pain 1-5 @ 4mg ... Q2H PRN IV 05/30/18 10:30 06/13/18 10:29 UNV Vancomycin HCl 1500 mg/Sodium Chloride 280 ml @ 125 mls/hr Q12H IV 05/30/18 10:30 05/30/18 12:45 UNV Vancomycin HCl (Consult) 1 ea UD PRN N/A 05/30/18 10:30 06/29/18 10:29 UNV Review of Systems As noted per HPI, 10 systems reviewed and negative unless noted above. Physical Exam Date Time Temp Pulse Resp B/P (MAP) Pulse Ox O2 Delivery O2 Flow Rate FiO2 05/30/18 11:20 Nasal Cannula 4.0 05/30/18 10:55 92 Nasal Cannula 4.0 05/30/18 10:55 92 Nasal Cannula 4.0 05/30/18 10:53 36.8 92 17 127/87 (100) 92 Nasal Cannula 4.0 05/30/18 10:40 36.7 88 15 133/93 95 Nasal Cannula 4 05/30/18 10:30 87 14 122/97 95 Nasal Cannula 4 05/30/18 10:21 36.3 87 16 108/87 97 Nasal Cannula 4 05/30/18 06:00 37 89 20 113/68 96 Room Air General Appearance: WD/WN, no apparent distress, + obese Head: normocephalic, atraumatic Eyes: normal inspection, PERRL, sclerae normal ENT: normal ENT inspection, hearing grossly normal, + pertinent finding ( Mucous membranes moist) Neck: supple, no adenopathy, thyroid normal, no JVD Respiratory/Chest: chest non-tender, lungs clear, normal breath sounds, no respiratory distress, + pertinent finding (on O2 via NC) Cardiovascular: regular rate, rhythm, no edema, no gallop, no murmur, normal peripheral pulses Abdomen/GI: normal bowel sounds, non tender, soft, + distended (seconday to obesity) Extremities/Musculoskelatal: normal capillary refill, no pedal edema, non- tender, + pertinent finding (+RLE BRENT wrap in tact, clean dry with SCDS on right foot/ankle) Neurologic/Psych: alert, normal mood/affect, oriented x 3 Skin: normal color, warm/dry, no rash Laboratory Results Last 24 Hours Test 05/30/18 06:09 05/30/18 10:28 Bedside Glucose 130 mg/dl 139 mg/dl Assessment & Plan (1) Status post total knee replacement, right Assessment & Plan: This is a 57-year-old white male with a significant past medical history of T2DM, HTN, HLD, NARINDER on CPAP, obesity, Chronic pain syndrome, history of septic arthritis in left lower extremity on chronic antibiotic therapy, ADD, depression, who presented to [facility] on for elective right TKA by Dr. Rodriguez. -Tolerated the procedure well with currently no postoperative complications, EBL 100 mL. -Lovenox 30 mg twice daily for VTE prophylaxis. -Physical therapy -Continue current pain regimen -Check CBC, BMP in a.m. (2) DM type 2 (diabetes mellitus, type 2) Status: Chronic Assessment & Plan: -Holding all oral and injectable hypoglycemics -Pharmacy consult for glycemic management -Lantus 25units SQ HS and novolog sliding scale -Accuchecks AC/HS -On Lisinopril for renal protection (3) Hypertension Status: Chronic Assessment & Plan: BP goal < 130/80. Continue Amlodipine, metoprolol and Lisinopril Indapamide on hold, will await bmp in a.m. prior to re-initiating. (4) Dyslipidemia Status: Chronic Assessment & Plan: -Continue Crestor (5) Chronic pain Status: Chronic Assessment & Plan: -Continue home regimen OxyContin 10 mg every 12 hours -Oxycodone 10 mg IR every 4 hours as needed pain -IV morphine per ortho prn -Follows Dr. Chong, [facility] for chronic back pain (6) ADD (attention deficit disorder) Status: Chronic Assessment & Plan: -Continue Adderall (7) NARINDER on CPAP Status: Chronic Assessment & Plan: -CPAP, patient brought his own from home (8) Femur fracture Status: Chronic Permanent Comment: S/P repair Last Edited By: Jovita Quan on May 30, 2018 12: 06 Assessment & Plan: s/p I+D with removal of hardware secondary to L knee septic joint +MSSA -Continue chronic keflex therapy per Dr. Huizar Thank you for this consultation. We will follow the patient with you during their hospital stay. You can reach a member of the [facility] Hospitalist Team 23/05 via pager @ . ATTENDING ADDENDUM care coordinated with DELMA London please refer to her notes for full details, I agree with her notes patient seen and examined, records reviewed by myself as well on exam, patient seen sitting up in bed, comfortable, watching tv knee pain is much better denies chest pain, dyspnea, dizziness, nausea no other symptoms VS noted and reviewed oriented x 2, not in distress, speaks in sentences with no effort nor accessory muscle use normal rate, regular rhythm, no murmurs clear breath sounds bilaterally non distended, soft, nontender ASSESSMENT/PLAN> s/p KNEE SURGERY stable overall DVT prophylaxis per Ortho DM 2 given IV steroids Pharmacy Glycemic Control consulted other diagnoses and plan of care as per DELMA London's notes Jose Martinez MD
[2018-05-30] MEDS ORDERED: MoRPHine SULFATE 4 MG/ML 1 ML CARP\\VIAL IV PRN (13:00)
[2018-05-30] MEDS ORDERED: AMPHETAMINE ASP/SULF/DEXTRAMPH 5 MG TAB PO PRN (13:15)
[2018-05-30] MEDS: AMPHETAMINE ASP/SULF/DEXTRAMPH 5 MG TAB PO SCH (13:30)
--- NOTE | 2018-05-30 13:46 | Pharmacy Progress Note ---
Glycemic Control Intl Consult Date of Service May 30, 2018. Scope Glycemic Pharmacist consulted by CLARE Sandoval on 05/30/18 for glycemic control and to write orders per [facility] inpatient glycemic control protocol Objective Weight (Kilograms): 109.090 Accuchecks BSG (last 24hrs): Test 05/30/18 06:09 05/30/18 10:28 05/30/18 11:14 Bedside Glucose 130 mg/dl (70-99) 139 mg/dl (70-99) 136 mg/dl (70-99) Recent Pertinent Medications Outpatient Anti-diabetic Regimen: * Victoza 1.2 mg SQ qAM * Metformin 850 mg BID * Actos 30 mg daily * A1c = 6.7 % 05/08/18 Risk Factors for Insulin Resistance: * Steroids: Decadron 4 mg in OR, will receive another 8 mg po POD #1 * Recent Surgery: POD 0 s/p R TKA * Diet: ordered type 2 diabetes diet postop Assessment & Plan ASSESSMENT: * 57 y/o male admitted for R TKA, with well controlled type 2 diabetes as an outpatient * Pt is maintained on oral antidiabetic agents + GLP-1 injectable as an outpatient * Oral agents are not recommended for inpatient use d/t drug interactions, changing PO intake, and difficulty titrating for acute hyper/hypoglycemia. ADA recommends re-initiating outpatient oral agents 1-2 days prior to discharge if/ when appropriate if they were held on admission. * Will hold oral agents for admission and utilize SQ basal bolus insulin regimen which is the recommended regimen for inpatient glycemic control. * Will initiate weight based insulin dosing for insulin reese patient and titrate based on BSG trends. With Decadron on board, will be slightly more aggressive, utilizing calculator estimates between stress level 2 and 3 using patient's weight PLAN FOR INPATIENT GLYCEMIC CONTROL: * Hold outpatient diabetes medications, can resume metformin POD 1 if patient meets criteria * Basal insulin with LANTUS 25 units x 1 now, further dosing tomorrow dependent on BSGs today * Correctional Insulin with NOVOLOG per scale ACHS or Q6hrs while NPO * Goal Range: Low 110 mg/dL - High 140 mg/dL * Correction Factor: 20 mg/dL/unit * Nutritional / Prandial insulin per carb ratio of 1 unit per 6 grams CHO consumed Discharge Recommendations: * A1c indicates excellent outpatient control * Resume outpatient regimen on discharge Thank you.
--- NOTE | 2018-05-30 13:58 | [facility] Operative Report ---
Operative Report Operative Date May 30, 2018. Pre-Operative Diagnosis End-Stage Osteoarthritis of Right knee Post-Operative Diagnosis Right knee end stage osteoarthritis Procedure(s) Performed Right Total Knee Arthroplasty Surgeon Dr Rodriguez Strategy Consultant Surgeon(s) Celi Sena PA-C, pepito urbina Estimated Blood Loss 100CC Findings See Dr Rodriguez operative report. Specimens A: Right Knee Bone and Tissue Complication(s) None Disposition Recovery Room / PACU Indications Failed conservative treatment. Pain. Decreased mobility and function. Xrays with end stage DJD. Electing to undergo right TKR. Description of Procedure See Dr Rodriguez operative report. I was licensed physical therapy assistant during entire procedure for instrument holding, limb manipulation, wound closure. I attest to the content of the Intraoperative Record and any orders documented therein. Any exceptions are noted below.
[2018-05-30] MEDS: DOCUSATE SODIUM 100 MG CAP PO SCH ×2 (14:04→21:41)
[2018-05-30] MEDS: KETOROLAC TROMETHAMINE 30 MG/ML VIAL IV. SCH ×2 (14:05→19:59)
[2018-05-30] MEDS: ACETAMINOPHEN 500 MG TAB PO SCH ×2 (14:05→21:41)
[2018-05-30] MEDS: CEFAZOLIN IV 2,000 MG in SYRINGE 0 ML IV SCH ×2 (14:06→21:49)
[2018-05-30] MEDS: CEPHALEXIN MONOHYDRATE 500 MG CAP PO SCH (14:06)
[2018-05-30] MEDS: FLUOXETINE HCL 20 MG CAP PO SCH (14:07)
[2018-05-30] MEDS: MULTIVITAMIN TAB PO SCH (14:08)
[2018-05-30] MEDS: METAXALONE 800 MG TAB PO SCH (14:10)
--- NOTE | 2018-05-30 14:54 | OPERATIVE REPORT ---
DATE OF OPERATION: 05/30/2018 PREOPERATIVE DIAGNOSIS: Osteoarthritis, right knee. POSTOPERATIVE DIAGNOSIS: Osteoarthritis, right knee. PROCEDURE: Cemented right total knee arthroplasty. SURGEON: Fercho Rodriguez MD ASSISTANTS: Tamica Hoskins PA-C and Aracelis Sena PA-C. ANESTHESIA: Spinal with sedation and peripheral nerve block. INDICATIONS FOR PROCEDURE: The patient is a 57-year-old male who has end-stage osteoarthritis of the right knee, significant medial compartment bone on bone changes with varus alignment and bone loss. This has been refractory to nonsurgical methods of management. He is on chronic suppressive therapy due to antibiotic therapy due to an infection in his contralateral leg. He is MRSA negative on nasal swabs. He has had multiple infections in the past, all with methicillin-sensitive Staph aureus. He has undergone nasal Betadine and chlorhexidine scrubs preoperatively. PROCEDURE IN DETAIL: Informed consent obtained. The patient identified as Rich Pelaez. He identified the operative site as the right knee. I marked with my initials. Preop surgical time out performed. Preop dose of IV antibiotics given. He was positioned supine on the OR table with a tourniquet on the right thigh, a bump under the right hip and a padded post under the right calf. The anesthetic was administered. The entire lower extremity was prepped and draped in usual sterile fashion. DVT prophylaxis intraoperatively with mechanical devices and postoperatively foot pumps, early mobility and Lovenox. The exam under anesthesia revealed full extension, flexion to about 120 degrees, significant varus alignment with no notable MCL laxity. The limb was exsanguinated with the Esmarch, tourniquet inflated to 250 mmHg. A midline incision was made followed by medial parapatellar arthrotomy. The retropatellar fat pad was resected and the synovial reflection in the lateral gutter was released. An extensile medial release was performed. The medial meniscus was noted to be disrupted in half and at the body and the entire medial and lateral meniscus was resected along with the cruciate ligaments. Soft tissue in the anterior aspect of the distal femur was removed. There were grade 4 changes on the medial tibial plateau and femur with large osteophytes which were removed. The lateral compartment looked relatively normal. The patella showed a grade 2 and perhaps some grade 3 change with osteophytes. The patella was everted and the knee was subluxated. A co pilot hole was drilled just in front of the lateral tibial spine and an intramedullary graciela was inserted. A 0 degree cutting block was affixed and set to resect 10 mm off of the lateral side which corresponded to a skim cut medially. The extramedullary alignment graciela was utilized to confirm the slope and alignment. The rotational alignment was with the medial portion of the tibial tubercle. This cut was made which resulted in a 2-3 mm medial defect. A co pilot hole was drilled in the distal femur followed by insertion of the intramedullary guide set to resect 6 degrees right knee, valgus at 12 mm thickness. This cut was made. The extension gap was asymmetric. I think that he had lateral laxity due to his varus deformity and excessive medial tightness. I went ahead and did a more extensile medial release removed posteromedial osteophytes and this improved things to 8 mm on the medial side, but remained asymmetric with a lateral side. Mclean's line and transepicondylar axis were marked out. This was followed by application of the distal femoral sizing guide, which sized to a 4. The tibia was also sized to a 4. The external rotation drill holes were made which matched the epicondylar axis and the block was applied and the cuts were made. At this time, the flexion gap was also noted to be asymmetric medially. I went ahead and removed posterior medial osteophytes and did more release of the semimembranosus and medial head of gastrocnemius. This still did not correct the soft tissue contracture and I released more distally which included the entire pes tendons and MCL off the tibia. This then allowed for a 12.5 mm block could be inserted both in flexion and extension. The box cutting guide was aligned, translated laterally. This cut was made followed by the size 4 cutting block. One of the additional things that I did on the tibia was shift the tibial tray laterally and removed the uncapped medial bone, which also helped to lengthen the MCL. I removed osteophytes from underneath the MCL. The tibial guide was then prepared with the keel and the punch and trialing was performed showing good stability in full extension and 90 degrees. 1+ laxity present and in mid position. Attention was turned to the patella which measured 25 mm in thickness. A 38 patella was selected. The guide was set to preserve 15 mm of bone. The cut was made. The residual patellar thickness was 14. The paddle was medialized and distalized, aligned appropriately and the lugholes were drilled. Patellar tracking was off at this point. The canals were plugged and the ortho joint mix was injected into the back of the knee. Betadine lavage was performed. Prior to the surgery, the patient received both vancomycin and Ancef. Two bags of Simplex P cement were mixed both containing 2 grams of vancomycin for a total of 4 grams. While in a doughy state, the cement was applied to the femur, tibia and patella, and the components were sequentially cemented into place. Smears of cement were placed on the posterior condyles. The bony surfaces were meticulously prepared with pulse lavage and dried. While the cement was hardening, Betadine lavage and the remainder of the ortho joint mix was injected. The knee was held in full extension until the cement had hardened and the tourniquet was let down after 115 minutes of inflation. Meticulous hemostasis was performed. Extraneous cement was removed as encountered, particularly in the back of the knee. The patella tracked fine with no hands technique and the tourniquet down. Composite patellar thickness was 24 mm. The aforementioned laxity profile applied and the final polyethylene insert was applied after cleaning out cement in the back of the knee. FiberWire was used to close the extensor mechanism above the equator of the patella. The knee was neutrally aligned and fully straightened. The knee was stable in full extension. Below the equator of the patella running and interrupted #1 Vicryl was applied. The skin was closed in layers with 0 and 2-0 Vicryl. Wet and dry sponges were used to clean the leg and a soft sterile dressing was applied, Xeroform, 4 x 4's, ABD and a full length Darrin wrap. A knee immobilizer was sent to the floor with the patient. He was awakened from anesthesia without difficulty and taken to the recovery room in stable condition. The resected bone was sent for specimen. There were no complications. Blood loss was estimated to be 100 mL. At the conclusion of the operation, there was no one available to speak to. Components inserted were the J [employer] J PFC sigma rotating platform knee, right posterior stabilized size 4 femur, a mobile bearing size 4 keeled tibial tray and a 38 mm oval dome patella and a 12.5 mm thick size 4 polyethylene spacer posterior stabilized. He will be rehabilitated according to the total knee protocol. I attest to the content of the Intraoperative Record and any orders documented therein. Any exceptions are noted below. ALLY
[2018-05-30] MEDS ORDERED: INSULIN ASPART 100 UNITS/ML 3 ML PEN SC ONE ×2 (15:00→17:15)
[2018-05-30] MEDS ORDERED: AMLODIPINE BESYLATE 5 MG TAB PO SCH (17:15)
[2018-05-30] MEDS ORDERED: NURSING DECISION MEDICATION ORDER SCH (17:30)
[2018-05-30] MEDS ORDERED: INDAPAMIDE PO SCH (17:45)
[2018-05-30] MEDS ORDERED: ROSUVASTATIN CALCIUM 10 MG TAB PO SCH (17:45)
[2018-05-30] MEDS ORDERED: VANCOMYCIN IV 1,500 MG in SODIUM CHLORIDE 0.9% 500ML 500 ML IV SCH (18:00)
[2018-05-30] MEDS ORDERED: GABAPENTIN 400 MG CAP PO SCH (18:00)
[2018-05-30] MEDS ORDERED: LISINOPRIL 40 MG TAB PO SCH (21:00)
[2018-05-30] MEDS ORDERED: FLUTICASONE PROPIONATE NA SPR 16 GM BTL NAE SCH (21:00)
[2018-05-30] MEDS ORDERED: ASPIRIN 81 MG ECTAB PO SCH (21:00)
[2018-05-30] MEDS ORDERED: AMITRIPTYLINE HCL 25 MG TAB PO SCH (21:00)
[2018-05-30] MEDS ORDERED: BACLOFEN TAB 20 MG TAB PO SCH (21:00)
[2018-05-30] MEDS: ENOXAPARIN 30 MG/0.3 ML SYR SQ SCH (21:40)
[2018-05-30] MEDS: OXYCODONE HCL 10 MG TABCR (OXYCONTIN) PO SCH (21:49)
[2018-05-30] MEDS: OXYCODONE HCL IR 5 MG TAB (IMMEDIATE RELEASE) PO PRN (23:28)
[2018-05-31] MEDS: KETOROLAC TROMETHAMINE 30 MG/ML VIAL IV. SCH ×3 (02:08→14:00)
[2018-05-31 03:25] VITALS: BP 110/61; PULSE 87; TEMP 36.4; O2SAT 90
[2018-05-31 06:12] LABS: HEMATOCRIT 29.3 % (42-52); HEMOGLOBIN 9.5 g/dL (14.0-18.0); MEAN CELL VOLUME 84.2 fL (80-100); MEAN CORPUSCULAR HEMOGLOBIN 27.3 pg (25-34); MEAN CORPUSCULAR HGB CONC 32.4 g/dl (32-36); MEAN PLATELET VOLUME 10.1 fL (7.4-10.4); PLATELET COUNT 135 K/uL (130-400); RED CELL DISTRIBUTION WIDTH CV 14.6 % (11.5-14.5); RED CELL DISTRIBUTION WIDTH SD 44.7 fL (36.4-46.3); WHITE BLOOD COUNT 6.93 K/uL (4.8-10.8)
[2018-05-31] MEDS: ACETAMINOPHEN 500 MG TAB PO SCH ×2 (06:15→14:06)
[2018-05-31] MEDS: CLONIDINE HCL 0.1 MG/24 HR TRANSDERM SYS TD SCH (06:17)
[2018-05-31] MEDS: SODIUM CHLORIDE 0.9% 1000ML 1,000 ML IV SCH (06:17)
[2018-05-31 07:13] VITALS: BP 110/72; PULSE 79; TEMP 36.5; O2SAT 93
[2018-05-31 07:21] LABS: CALCIUM 7.3 mg/dl (8.5-10.1); CREATININE 1.43 mg/dl (0.60-1.40)
[2018-05-31] MEDS ORDERED: DEXAMETHASONE 4 MG TAB PO SCH (07:30)
[2018-05-31] MEDS: INSULIN ASPART 100 UNITS/ML 3 ML PEN SC SCH ×2 (08:00→12:25)
[2018-05-31] MEDS ORDERED: INSULIN GLARGINE SOLOSTAR 100 UNITS/ML 3 ML PEN SC ONE (08:00)
[2018-05-31] MEDS: METOPROLOL TARTRATE 50 MG TAB PO SCH ×2 (08:23→12:16)
[2018-05-31] MEDS: GABAPENTIN 400 MG CAP PO SCH ×2 (08:24→12:16)
[2018-05-31] MEDS: MULTIVITAMIN TAB PO SCH (08:24)
[2018-05-31] MEDS: AMPHETAMINE ASP/SULF/DEXTRAMPH ER 20 MG CAP PO SCH (08:33)
[2018-05-31] MEDS: OXYCODONE HCL 10 MG TABCR (OXYCONTIN) PO SCH (08:33)
[2018-05-31] MEDS: DOCUSATE SODIUM 100 MG CAP PO SCH (08:33)
--- NOTE | 2018-05-31 08:58 | Orthopedic Progress Note ---
Orthopedic Progress Note Date of Service May 31, 2018. Subjective Post OP Day: 1 Reports: feeling well, pain controlled w PO medications, Denies: complaints, chest pain, SOB, nausea / vomiting, light headedness, calf pain Objective calves soft nontender, N/V intact, capillary refill less than 2 sec., dressing C /D/I, A&O x3, toes mobile Date Time Temp Pulse Resp B/P (MAP) Pulse Ox O2 Delivery O2 Flow Rate FiO2 05/31/18 07:13 36.5 79 18 110/72 (85) 93 Room Air 05/31/18 03:25 36.4 87 16 110/61 (77) 90 CPAP 05/30/18 23:59 Room Air CPAP 05/30/18 23:37 36.4 108 18 104/63 (77) 92 Room Air 05/30/18 16:10 98 Room Air 05/30/18 15:51 36.7 68 18 135/78 (97) 98 Room Air 05/30/18 13:55 36.8 96 18 118/66 (83) 92 Room Air 05/30/18 12:56 102 18 115/73 (87) 93 Nasal Cannula 4.0 05/30/18 12:09 97 17 111/71 (84) 96 Nasal Cannula 4.0 05/30/18 11:25 36.8 98 18 115/72 (86) 95 Nasal Cannula 2.0 05/30/18 11:20 Nasal Cannula 4.0 05/30/18 10:55 92 Nasal Cannula 4.0 05/30/18 10:55 92 Nasal Cannula 4.0 05/30/18 10:53 36.8 92 17 127/87 (100) 92 Nasal Cannula 4.0 05/30/18 10:40 36.7 88 15 133/93 95 Nasal Cannula 4 05/30/18 10:30 87 14 122/97 95 Nasal Cannula 4 05/30/18 10:21 36.3 87 16 108/87 97 Nasal Cannula 4 Laboratory Results 24 Hours: Test 05/31/18 05:40 Hematocrit 29.3 % Hemoglobin 9.5 g/dL Assessment & Plan Assessment: POD 1 - right TKR Acute blood loss anemia Plan: Will monitor H/H. Continue OOB - WBAT RLE with tristanian crutches and knee immobilizer x 2 days post op Ice to right knee PRN pain/swelling PT/OT today OOB as tolerated Regular/Diabetic diet as tolerated Lovenox for DVT prophylaxis x 2-4 weeks post op Appreciate medicine assistance. Seen by financial services officer - plan for discharge home with home health. Patient would consider [facility], will see how he does in PT today. Discharge when stable, possibly home today. Will discuss findings with Dr. Rodriguez (1) Status post total knee replacement, right Acute (2) DM type 2 (diabetes mellitus, type 2) Chronic (3) Hypertension Chronic (4) Dyslipidemia Chronic (5) Chronic pain Chronic (6) ADD (attention deficit disorder) Chronic (7) NARINDER on CPAP Chronic (8) Femur fracture Chronic
[2018-05-31] MEDS ORDERED: CALCIUM 600MG + VIT D 400 IU TAB PO SCH (09:00)
[2018-05-31] MEDS ORDERED: PANTOprazole SOD 40 MG TAB PO SCH (09:00)
[2018-05-31] MEDS ORDERED: FLUOXETINE HCL 20 MG CAP PO SCH (09:00)
[2018-05-31] MEDS ORDERED: IPRATROPIUM SCH (09:00)
[2018-05-31] MEDS ORDERED: METAXALONE 800 MG TAB PO SCH (09:00)
[2018-05-31] MEDS ORDERED: CEPHALEXIN MONOHYDRATE 500 MG CAP PO SCH (09:00)
[2018-05-31] MEDS ORDERED: LVNIS30 SQ (09:06)
[2018-05-31] MEDS ORDERED: OXYC-737 PO (09:24)
[2018-05-31] MEDS: ENOXAPARIN 30 MG/0.3 ML SYR SQ SCH (09:42)
--- NOTE | 2018-05-31 10:10 | Pharmacy Progress Note ---
Pharmacy Glycemic Short Note 2 Date of Service May 31, 2018. OUTPATIENT ANTIDIABETIC REGIMEN: * Victoza 1.2 mg SQ qAM * Metformin 850 mg BID * Actos 30 mg daily * A1c = 6.7 % 05/08/18 Test 05/30/18 10:28 05/30/18 11:14 05/30/18 15:14 05/30/18 17:27 Bedside Glucose 139 mg/dl (70-99) 136 mg/dl (70-99) 239 mg/dl (70-99) 123 mg/dl (70-99) Test 05/30/18 20:24 05/30/18 23:31 05/31/18 05:40 05/31/18 07:55 Bedside Glucose 135 mg/dl (70-99) 135 mg/dl (70-99) 98 mg/dl (70-99) Random Glucose 129 mg/dl (70-99) ASSESSMENT: 05/31/18 * POD 1 s/p R TKA * All BSGs below 140 mg/dL * Patient will receive one more dose of Decadron this AM so will give another 25 units of Lantus * CF/CR will be kept at 20/6 through today and can loosen tomorrow once steroid wears off * SCr currently elevated from baseline - will wait to resume oral agents 05/30/18 * 57 y/o male admitted for R TKA, with well controlled type 2 diabetes as an outpatient * Pt is maintained on oral antidiabetic agents + GLP-1 injectable as an outpatient * Oral agents are not recommended for inpatient use d/t drug interactions, changing PO intake, and difficulty titrating for acute hyper/hypoglycemia. ADA recommends re-initiating outpatient oral agents 1-2 days prior to discharge if/ when appropriate if they were held on admission. * Will hold oral agents for admission and utilize SQ basal bolus insulin regimen which is the recommended regimen for inpatient glycemic control. * Will initiate weight based insulin dosing for insulin reese patient and titrate based on BSG trends. With Decadron on board, will be slightly more aggressive, utilizing calculator estimates between stress level 2 and 3 using patient's weight PLAN FOR INPATIENT GLYCEMIC CONTROL: * Continue to hold outpatient oral diabetes medications * Basal insulin * Lantus 25 units x 1 this AM * Bolus insulin * NovoLog per scale ACHS or Q6hrs while NPO * Goal Range: Low 110 mg/dL - High 140 mg/dL * Correction Factor: 20 mg/dL/unit * Nutritional / Prandial insulin per carb ratio of 1 unit per 6 grams CHO consumed PLAN FOR DISCHARGE: * A1c indicates excellent outpatient control * Resume outpatient regimen on discharge
[2018-05-31] MEDS: OXYCODONE HCL IR 5 MG TAB (IMMEDIATE RELEASE) PO PRN ×2 (10:40→14:42)
[2018-05-31 11:07] VITALS: BP 154/85; PULSE 96; TEMP 37.1; O2SAT 97
[2018-05-31] MEDS: METAXALONE 800 MG TAB PO SCH (12:15)
[2018-05-31] MEDS: CEPHALEXIN MONOHYDRATE 500 MG CAP PO SCH (12:15)
[2018-05-31] MEDS: FLUOXETINE HCL 20 MG CAP PO SCH (12:15)
[2018-05-31] MEDS: AMPHETAMINE ASP/SULF/DEXTRAMPH 5 MG TAB PO SCH (12:22)
--- NOTE | 2018-05-31 14:20 | Discharge Instructions ---
Discharge Instructions Date of Service May 31, 2018. Admission Reason for Admission: Right Knee Osteoarthritis Discharge Discharge Diagnosis / Problem: Right knee Osteoarthritis Discharge Goals Goal(s): Decrease discomfort, Improve function, Increase independence Activity Recommendations Activity Limitations: per Instructions/Follow-up section Weightbearing Status: Right weightbearing (as tolerated with [place] Crutches) . Instructions / Follow-Up Instructions / Follow-Up New Medicine: * You will likely be taking one or more of these medications: 1. Lovenox - You will be on Lovenox for 2-4 weeks after surgery to prevent blood clots. You may take Aspirin, 81 mg while on Lovenox. You will be asked to get a CBC on Tuesday06/05/18. 2. Oxycontin - Take one every 12 hours. 3. Oxy IR 10mg - Take, as directed, when you need it, every six hours to control your pain. 4. Colace - Take to prevent constipation which can be caused by narcotics. These can be bought [id number] at the pharmacy * The most common side effects of pain medicine and iron are nausea and constipation. If nausea or constipation is too much of a problem or if you have any questions about your new medicines or doses, call [facility] at . We will try to help you manage these issues. VERY IMPORTANT TO READ AND REVIEW" Blood Clots and Blood Thinning Medicine: * You are given Lovenox during the immediate post-operative period to lessen the risk of blood clots forming in your legs and/or lungs. Lovenox is usually given for four weeks after surgery. * The prescription is for 30mg injections. * You need to get your blood checked on Tuesday. You have a prescription in your chart for home health to draw your blood. Physical Therapy: * Do your physical therapy at home. These are the exercises you learned while in the hospital (quad sets, leg raises, calf pumps, gluteal squeezes, knee bending, and heel props.) You should do these exercises 3-4 times per day. * You will either go to inpatient rehab ([facility]), home with Home Therapy and nursing or home with outpatient rehab. You should do rehab with the therapist 2-3 times per week. You should do therapy on your own daily. * You may bear full weight on your leg with crutches or walker unless otherwise advised. Home Exercise: * You were shown a series of exercises (heel props, heel slides, etc.) in the hospital. Do these exercises three to four times each day including the exercises you were shown in physical therapy. Walking: * You may be up for short periods of time. Standing and walking for 1-2 hours at a time is usually okay. You should not stand or walk for excessive periods of time as this may cause increased pain and swelling. SELF CARE INSTRUCTIONS AFTER TOTAL KNEE REPLACEMENT A. You may need to continue a physical therapy program after discharge from the hospital. There are several options available to you. Your doctor will assist you in selecting the best one for you. 1. An out-patient facility 2 to 3 times a week for therapy or home therapy. 2. Continue working on all exercises taught to you in the hospital. Your goals should be to increase bending of your knee to 90 degrees and beyond and to fully straighten your knee. B. Your therapist will notify you when you are able to progress from a walker to a cane. C. Wear TEDS as much as possible.~ They may be removed at night for laundering. D. Do not place a pillow behind your knee when resting. A pillow at your ankle is okay. E. Ice your knee 15-20 minutes every 2-3 hours and elevate it above the level of your heart. F. You may shower on the fourth day after surgery using regular soap and water. Do not submerge until the wound is completely healed (approximately 2 weeks ). Until the fourth day after surgery, cover the incision/bandage with a bag or plastic wrap. G. Anyone who is touching your surgical incision area should wash their hands and wear gloves. H. Keep your incision covered with gauze pads under the JOSIAH hose until it is dry. VERY IMPORTANT TO READ AND REVIEW A. YOU WILL BE GIVEN AN ORDER AT DISCHARGE FOR PT/INR (BLOOD WORK). PLEASE HAVE THIS DONE INSTRUCTED. PLEASE CALL OUR OFFICE AFTER YOUR BLOODWORK IS COMPLETE SO WE CAN TRACK YOUR RESULTS. IF YOU ARE GOING TO OUTPATIENT PHYSICAL THERAPY, YOU WILL NEED TO GO TO OUTPATIENT TESTING TO HAVE IT DRAWN. B. There are a few signs you need to watch for after you are home. Call [facility] if you notice any of the followin. Increased severe knee pain. Some pain is expected especially when you exercise. 2. Increased swelling in your leg or knee; pain or swelling of the calf muscle in either lower leg. 3. Any fluid drainage from the incision. 4. Shortness of breath or chest pain. 5. Numbness and tingling in the surgical extremity C. Please call [facility] at if you have any concerns or questions about your operation or recovery. The doctor or his nurse will return your call promptly. D. Do not have any elective dental work or other elective procedures done for 6 weeks after your knee replacement. When you have any invasive procedure (dental cleaning, extraction, colonoscopy etc) performed, you will need to take antibiotics to prevent infection from developing in your artificial joint. Tell your other health care providers you have an artificial joint. My office will supply you with further information and the antibiotics. Call your doctor if: * Temperature above 101 degrees F. * Pain not relieved by pain medicine ordered. * Increased drainage or redness from incision. * Notify your doctor with any questions or concerns. Follow-up Visit: You will follow-up with Dr. Rodriguez 10-14 days after surgery. The office number is . You have a follow up appointment scheduled with Dr. Rodriguez on 06/14/18 12:45 p.m. Avoid all tobacco products. If you need help to stop smoking, call [facility] FREE QUITLINE at . This is a free call. Current Hospital Diet Patient's current hospital diet: Diabetes Type 2 Diet, Regular Diet Discharge Diet Recommended Diet: Regular Diet, Diabetes Type 2 Diet Procedures Procedures Performed: Right Total Knee Arthroplasty Pending Studies Studies pending at discharge: no Laboratory Results Hemoglobin A1c Test 05/08/18 14:50 Range/Units Estimated Average Glucose 146 mg/dl Hemoglobin A1c 6.7 H 4.5-5.6 % Medical Emergencies . Who to Call and When: Medical Emergencies: If at any time you feel your situation is an emergency, please call 911 immediately. . Non-Emergent Contact Non-Emergency issues call your: Surgeon Call Non-Emergent contact if: temperature is above 101, your pain is not controlled, your pain is worsening, your pain is unusual for you, your pain is concerning you, wound has increased drainage, wound has increased redness, wound has increased pain, you have any medication questions . "Provider Documentation" section prepared by Tamica Hoskins. . [place] Drug Monitoring Program Search Results: patient reviewed within database, no issues identified
[2018-05-31 14:29] VITALS: BP 154/85; PULSE 96; TEMP 37.1; O2SAT 97
--- NOTE | 2018-05-31 14:47 | PROGRESS NOTE ---
DATE: 05/31/2018 Pain is well controlled. He is able to lift his leg. He is concerned about his insulin management here in the hospital, but I discussed the rationale with him. He is afebrile. His vital signs are stable. He did very well with physical therapy. His labs are noted. Hematocrit is 29. PRP is noted. His BUN and creatinine are slightly elevated at 1.4 and 34. On exam, his dressing is clean and dry, although it has been reinforced. His neurovascular function is intact. He is educated about avoiding extremes of bending, lifting. Work on maintaining knee extension and avoid placing anything behind the knee. We talked about pain management strategies postoperatively including use of oxycodone. He would not be able to take Toradol. We talked about bathing instructions. He has followup. He will take the Lovenox. I will have home health and PT. He has an aide and a girlfriend. He appears ready for discharge and we will go ahead and head in that direction. Cautioned him about wound care and pets. We talked about washing hands and wearing gloves. If there are any issues with fevers, drainage, etc. pain or other problems, please call the office. He will continue with his regular medicines including the b.i.d. Keflex.
[2018-06-01] MEDS ORDERED: CeleBREX 200 MG CAP PO SCH (09:00)
--- NOTE | 2018-06-01 16:39 | Discharge Summary ---
Discharge Summary Date of Service May 31, 2018. Discharge Summary Admission Date: May 30, 2018 at 08:36 Discharge Date: May 31, 2018 Discharge Disposition: Home with services Principal Diagnosis: DJD right knee Procedures: Right Total Knee Arthroplasty Consultations: Glycemic Control, Hospitalist Medication Reconciliation New Medications: Oxycodone Immediate Rel Tab (Roxicodone Ir) 5 Mg Tab 10 MG PO Q4H PRN for Severe Pain, #40 TAB Enoxaparin (Lovenox) 30 Mg/0.3 Ml Inj 30 MG SQ Q12H for 14 Days, #28 SYR 1 Refill Continued Medications: Acetaminophen (Tylenol) 500 Mg Tab 1000 MG PO Q6 PRN for Pain, TAB Amitriptyline HCl (Amitriptyline HCl) 25 Mg Tab 1 TAB PO HS Amlodipine (Norvasc) 10 Mg Tab 10 MG PO DAILY at 5 p.m. for 30 Days, TAB Amphetamine-Dextroamphetamine 20MG (Adderall Xr 20MG) 1 Cap Cap 20 MG PO QAM, CAP Amphetamine-Dextroamphetamine 5MG (Adderall 5MG) 1 Tab Tab 2.5 MG PO QDD PRN for PRN, TAB TAKES 2.5 ROUTINELY AT LUNCH AND OTHER HALF DOSE NEEDED REST OF DAY Aspirin (Aspirin Chewable) 81 Mg Chew 81 MG PO HS Baclofen (Baclofen) 20 Mg Tab 3 TAB PO HS Calcium Carbonate-Cholecalcife (Calcium Plus Vitamin D3) 1 Cap Cap 1 TAB PO QAM Cephalexin Monohydrate (Keflex) 500 Mg Cap 500 MG PO BID, #30 CAP Docusate Sodium (Docusate Sodium) 100 Mg Cap 100 MG PO BID for 30 Days, #60 CAP Fexofenadine Hcl (Carmen Allergy) 180 Mg Tab 1 TAB PO QDD for 14 Days, #14 TAB 2 Refills Fluoxetine (Prozac) 20 Mg Cap 40 MG PO QLUNCH, CAP Fluoxetine HCl (Fluoxetine HCl) 20 Mg Cap 20 MG PO QAM Fluticasone Propionate (Nasal) (Flonase Allergy Relief) 50 Mcg/Act Spr 1-2 SPRAY LULU HS Gabapentin (Neurontin) 400 Mg Cap 400 MG PO TID, CAP TAKES AM,LUNCH AND DINNER Hydroxyzine Pamoate (Vistaril) 25 Mg Cap 1-2 CAP PO Q6 PRN for Itching, CAP Indapamide (Indapamide) 2.5 Mg Tab 1 TAB PO QDD for 30 Days, #30 TAB 5 Refills Ipratropium [place] (Nasal) (Ipratropium [place]) 0.03 % Spr 1-2 SPRAY LULU AC Lactic Acid (Ammonium Lactate) (Lac-Hydrin) 12 % Cre 1 APPLN TOP BID PRN for DRY SKIN, #385 GM Liraglutide (Victoza) 18 Mg/3 Ml Inj 1.2 MG SC QAM Lisinopril (Zestril) 40 Mg Tab 40 MG PO HS, TAB Meloxicam (Mobic) 7.5 Mg Tab 7.5 MG PO BID, TAB Metaxalone (Skelaxin) 800 Mg Tab 800 MG PO QAM, TAB Metaxalone (Skelaxin) 800 Mg Tab 1600 MG PO NOON, TAB Metformin Hcl (Glucophage) 850 Mg Tab 850 MG PO BID, TAB Metoprolol Tartrate (Lopressor) (Lopressor) 50 Mg Tab 50 MG PO BID, TAB Multiple Vitamin (Multi Vitamin) 1 Tab Tab 1 TAB PO QDL Ondansetron Hcl (Zofran) 4 Mg Tab 4-8 MG PO Q6H PRN for Nausea, TAB Oxycodone HCl (Oxycontin) 10 Mg Tabcr 1 TAB PO BID Oxycodone Ir (Roxicodone Ir) 5 Mg Tab 5 MG PO Q4H PRN for Severe Pain, TAB Pioglitazone (Actos) 30 Mg Tab 1 TAB PO QAM for 90 Days, #90 TAB 3 Refills Rosuvastatin Calcium (Crestor) 20 Mg Tab 20 MG PO QDD, TAB Tizanidine (Tizanidine HCl) 4 Mg Tab 6 MG PO HS Discontinued Medications: Acetaminophen (Tylenol Arthritis Ext Rel) 650 Mg Cplt 1300 MG PO QPM PRN for Pain, CAP Admission Information HPI (per Admitting provider): Patient is a 57-year-old male who scheduled to have an elective right total knee arthroplasty with Dr. Rodriguez on May 30, 2018. He has had ongoing right knee pain times many years. Over the last 6-12 months it has progressively worsened. He does have pain in both knees, but his right knee is greater than his left. He has been having significant problems with his back as well. Started a course of the minimally invasive ablation procedure at the [facility], [facility]. He states that the treatment that his had so far has helped mildly with his back pain. He also sees Dr. Chong for his back. He has a known L4-5 disc problem which started in September and resulted in what he describes as temporary paralysis and then malingering sciatica of the left and right leg. His had no issues with incontinence. He does have some persistent weakness. He states that his right knee pain consistently bothersome on a daily basis. He describes his pain as excruciating. He states that his knee gives out frequently. He does use Latvian crutches to assist with ambulation which she has done for many years. He states that his pain is increased with activity and weightbearing. He does have decreased activities of daily living due to pain in his right knee. His pain with range of motion and limitation of range of motion due to pain. His had previously some effusions in his knee. Aggravating activities include walking, going up and down steps, rest, sitting in one position for too long. He also has night pain. Prior treatments include corticosteroid injections into the right knee, Visco supplementation, outpatient physical therapy and nonsteroidal anti-inflammatory drugs. Recently has not taking any nonsteroidal anti-inflammatory drugs due to his other underlying medications. Due to his failure of conservative treatment, he wishes to proceed with surgery. He feels that is affecting his life on a daily basis. Surgery has been scheduled. Physical Exam (per Admitting): General Appearance: WD/WN, no apparent distress Head: normocephalic, atraumatic Eyes: normal inspection, PERRL, EOMI, sclerae normal ENT: normal ENT inspection, hearing grossly normal, TMs normal, pharynx normal Neck: supple, no adenopathy, thyroid normal, no carotid bruits, trachea midline Respiratory/Chest: chest non-tender, lungs clear, normal breath sounds, no respiratory distress, no accessory muscle use Cardiovascular: regular rate, rhythm, no edema, no murmur, normal peripheral pulses Abdomen/GI: normal bowel sounds, non tender, soft Back: normal inspection, no muscle spasm, + decreased range of motion Extremities/Musculoskelatal: + pertinent finding (Left leg neutral alignment. Right leg varus alignment with slight thrust. Full painless range of motion of right hip.No effusion of the right knee. Knee range of motion is 0 -125. There is no significant flexion contracture. There is 1+ laxity of the MCL otherwise stable ligamentously. Positive tenderness of the medial joint line) Neurologic/Psych: no motor/sensory deficits, alert, normal mood/affect, normal reflexes, oriented x 3, + sensory deficit (Mild diminished sensation throughout bilateral feet but generally he can feel normally) Skin: normal color, warm/dry, no rash Lymphatic: no adenopathy Physical Exam (per Admitting): Height 169.4 cm; Weight 112.6 kg Hospital Course (1) Status post total knee replacement, right (2) DM type 2 (diabetes mellitus, type 2) (3) Hypertension (4) Dyslipidemia (5) Chronic pain (6) ADD (attention deficit disorder) (7) NARINDER on CPAP (8) Femur fracture Patient was admitted after undergoing and elective right total knee arthroplasty by Dr. Rodriguez on 05/30/18 to the [facility]. His surgery was performed with spinal anesthesia and peripheral nerve block. He tolerated the procedure well and had no intra-operative complications. He was given 2 gm IV Ancef and IV Vancomycin prior to surgery and both antibiotics were continued for 24 hours post operatively. He was given a regular/diabetic diet after surgery and tolerated well during his stay. He was allowed out of bed, weight bearing as tolerated right lower extremity with the assistance of his peruvian crutches. He was seen and evaluated after surgery by physical and occupational therapy and did well out of bed. He was deemed safe for discharge to his home. He was seen and evaluated by social worker aide and case management and arrangement for home health with [facility] was obtained. During his inpatient stay a Hospitalist and Glycemic Control consult was requested. Patient refused his insulin during his stay. His regular at home medications were continued after surgery. Ice was applied to his knee. His pain was well controlled during his stay. He did not develop and post op chest pain, shortness of breath or headaches. Lovenox 30 mg BID was used for DVT prophylaxis and will be continued for 2-4 weeks after surgery. He will get in home health and PT and will attend outpatient PT at [facility] appropriately. Discharge instructions were provided. Post op follow up scheduled. Total time spent on discharge = This includes examination of the patient, discharge planning, medication reconciliation, and communication with other providers. Discharge Instructions Discharge Instructions Date of Service May 31, 2018. Admission Reason for Admission: Right Knee Osteoarthritis Discharge Discharge Diagnosis / Problem: Right knee Osteoarthritis Discharge Goals Goal(s): Decrease discomfort, Improve function, Increase independence Activity Recommendations Activity Limitations: per Instructions/Follow-up section Weightbearing Status: Right weightbearing (as tolerated with Latvian Crutches) . Instructions / Follow-Up Instructions / Follow-Up New Medicine: * You will likely be taking one or more of these medications: 1. Lovenox - You will be on Lovenox for 2-4 weeks after surgery to prevent blood clots. You may take Aspirin, 81 mg while on Lovenox. You will be asked to get a CBC on Tuesday06/05/18. 2. Oxycontin - Take one every 12 hours. 3. Oxy IR 10mg - Take, as directed, when you need it, every six hours to control your pain. 4. Colace - Take to prevent constipation which can be caused by narcotics. These can be bought [id number] at the pharmacy * The most common side effects of pain medicine and iron are nausea and constipation. If nausea or constipation is too much of a problem or if you have any questions about your new medicines or doses, call [facility] at . We will try to help you manage these issues. VERY IMPORTANT TO READ AND REVIEW" Blood Clots and Blood Thinning Medicine: * You are given Lovenox during the immediate post-operative period to lessen the risk of blood clots forming in your legs and/or lungs. Lovenox is usually given for four weeks after surgery. * The prescription is for 30mg injections. * You need to get your blood checked on Tuesday. You have a prescription in your chart for home health to draw your blood. Physical Therapy: * Do your physical therapy at home. These are the exercises you learned while in the hospital (quad sets, leg raises, calf pumps, gluteal squeezes, knee bending, and heel props.) You should do these exercises 3-4 times per day. * You will either go to inpatient rehab ([facility]), home with Home Therapy and nursing or home with outpatient rehab. You should do rehab with the therapist 2-3 times per week. You should do therapy on your own daily. * You may bear full weight on your leg with crutches or walker unless otherwise advised. Home Exercise: * You were shown a series of exercises (heel props, heel slides, etc.) in the hospital. Do these exercises three to four times each day including the exercises you were shown in physical therapy. Walking: * You may be up for short periods of time. Standing and walking for 1-2 hours at a time is usually okay. You should not stand or walk for excessive periods of time as this may cause increased pain and swelling. SELF CARE INSTRUCTIONS AFTER TOTAL KNEE REPLACEMENT A. You may need to continue a physical therapy program after discharge from the hospital. There are several options available to you. Your doctor will assist you in selecting the best one for you. 1. An out-patient facility 2 to 3 times a week for therapy or home therapy. 2. Continue working on all exercises taught to you in the hospital. Your goals should be to increase bending of your knee to 90 degrees and beyond and to fully straighten your knee. B. Your therapist will notify you when you are able to progress from a walker to a cane. C. Wear TEDS as much as possible.~ They may be removed at night for laundering. D. Do not place a pillow behind your knee when resting. A pillow at your ankle is okay. E. Ice your knee 15-20 minutes every 2-3 hours and elevate it above the level of your heart. F. You may shower on the fourth day after surgery using regular soap and water. Do not submerge until the wound is completely healed (approximately 2 weeks ). Until the fourth day after surgery, cover the incision/bandage with a bag or plastic wrap. G. Anyone who is touching your surgical incision area should wash their hands and wear gloves. H. Keep your incision covered with gauze pads under the JOSIAH hose until it is dry. VERY IMPORTANT TO READ AND REVIEW A. YOU WILL BE GIVEN AN ORDER AT DISCHARGE FOR PT/INR (BLOOD WORK). PLEASE HAVE THIS DONE INSTRUCTED. PLEASE CALL OUR OFFICE AFTER YOUR BLOODWORK IS COMPLETE SO WE CAN TRACK YOUR RESULTS. IF YOU ARE GOING TO OUTPATIENT PHYSICAL THERAPY, YOU WILL NEED TO GO TO OUTPATIENT TESTING TO HAVE IT DRAWN. B. There are a few signs you need to watch for after you are home. Call [facility] if you notice any of the followin. Increased severe knee pain. Some pain is expected especially when you exercise. 2. Increased swelling in your leg or knee; pain or swelling of the calf muscle in either lower leg. 3. Any fluid drainage from the incision. 4. Shortness of breath or chest pain. 5. Numbness and tingling in the surgical extremity C. Please call [facility] at if you have any concerns or questions about your operation or recovery. The doctor or his nurse will return your call promptly. D. Do not have any elective dental work or other elective procedures done for 6 weeks after your knee replacement. When you have any invasive procedure (dental cleaning, extraction, colonoscopy etc) performed, you will need to take antibiotics to prevent infection from developing in your artificial joint. Tell your other health care providers you have an artificial joint. My office will supply you with further information and the antibiotics. Call your doctor if: * Temperature above 101 degrees F. * Pain not relieved by pain medicine ordered. * Increased drainage or redness from incision. * Notify your doctor with any questions or concerns. Follow-up Visit: You will follow-up with Dr. Rodriguez 10-14 days after surgery. The office number is . You have a follow up appointment scheduled with Dr. Rodriguez on 06/14/18 12:45 p.m. Avoid all tobacco products. If you need help to stop smoking, call [place] QUIT[facility] at . This is a free call. Current Hospital Diet Patient's current hospital diet: Diabetes Type 2 Diet, Regular Diet Discharge Diet Recommended Diet: Regular Diet, Diabetes Type 2 Diet Procedures Procedures Performed: Right Total Knee Arthroplasty Pending Studies Studies pending at discharge: no Laboratory Results Hemoglobin A1c Test 05/08/18 14:50 Range/Units Estimated Average Glucose 146 mg/dl Hemoglobin A1c 6.7 H 4.5-5.6 % Medical Emergencies . Who to Call and When: Medical Emergencies: If at any time you feel your situation is an emergency, please call 911 immediately. . Non-Emergent Contact Non-Emergency issues call your: Surgeon Call Non-Emergent contact if: temperature is above 101, your pain is not controlled, your pain is worsening, your pain is unusual for you, your pain is concerning you, wound has increased drainage, wound has increased redness, wound has increased pain, you have any medication questions . "Provider Documentation" section prepared by Tamica Hoskins. . [place] Drug Monitoring Program Search Results: patient reviewed within database, no issues identified
== END 2018-05-31 16:15 | disposition home health service (06) | DRG 470 ==
LOC: C.ACU 05:22 → C.3E 08:36 → ENRESERV 10:29
PROVIDERS: ADMIT Physical Medicine & Rehabilitation Sports Medicine; ATTEND Physical Medicine & Rehabilitation Sports Medicine
PROC: 0SRC0J9 Replacement of Right Knee Joint with Synthetic Substitute, Cemented, Open Approach (ICD-10-PCS; principal; 2018-05-30 07:00)
DX: M17.11 Unilateral primary osteoarthritis, right knee (principal); D62 Acute posthemorrhagic anemia; E11.9 Type 2 diabetes mellitus without complications; I10 Essential (primary) hypertension; E78.5 Hyperlipidemia, unspecified; G47.33 Obstructive sleep apnea (adult) (pediatric); E66.9 Obesity, unspecified; G89.29 Other chronic pain; F32.9 Major depressive disorder, single episode, unspecified; F90.9 Attention-deficit hyperactivity disorder, unspecified type; Z79.82 Long term (current) use of aspirin; Z79.84 Long term (current) use of oral hypoglycemic drugs; Z79.899 Other long term (current) drug therapy; Z68.37 Body mass index [BMI] 37.0-37.9, adult

== ENCOUNTER 2018-06-04 15:04 | Emergency (ER) | payer OTHER ==
[~2018-06-04 15:04] MED LIST changes: -ACET-1256 PO; -ACET1TAB84 PO; -GENERAL ORDER PROBLEM SCH; +LVNIS30 SQ; +OXYC-737 PO; +TYLOTC500 PO
[2018-06-04 15:10] VITALS: Ht 170.2 cm
--- NOTE | 2018-06-04 16:12 | DIAGNOSTIC IMAGING REPORT ---
PELVIS 1 OR 2 VIEW ROUTINE CLINICAL HISTORY: LBP/pelvic pain s/p fall trauma. Pain. COMPARISON: 07/04/2015 DISCUSSION: Mild degenerative change of the hips as well as sacroiliac joints. No evidence for acute bony abnormality. Stage survey negative for fracture. No evidence for acetabular protrusion. There is no evidence for soft tissue swelling. IMPRESSION: Degenerative change. No acute process. The above report was generated using voice recognition software. It may contain grammatical, syntax or spelling errors. Electronically signed by: Osman Fontaine M.D. 06/04/2018 4:10 PM Dictated Date/Time: 06/04/2018 4:09 PM
--- NOTE | 2018-06-04 16:14 | DIAGNOSTIC IMAGING REPORT ---
L-SPINE MIN 4 VIEWS ROUTINE HISTORY: Pain LBP/pelvic pain s/p fall COMPARISON: 06/08/2017 FINDINGS: There is no fracture. Grade 1 anterolisthesis L4 on L5. This is unchanged in the prior study. No evidence for an acute compression deformity. Degenerative disc change most prominent at L4-L5 where a vacuum disc is present. IMPRESSION: Degenerative change. No acute bony abnormality. The above report was generated using voice recognition software. It may contain grammatical, syntax or spelling errors. Electronically signed by: Osman Fontaine M.D. 06/04/2018 4:12 PM Dictated Date/Time: 06/04/2018 4:11 PM
[2018-06-04] MEDS ORDERED: METH4PAK PO (16:45)
--- NOTE | 2018-06-04 17:09 | EMERGENCY ROOM VISIT NOTE ---
History First contact with patient: 15:18 Chief Complaint: FALL Stated Complaint: KNEE GEMMA ON 06/30, FELL TODAY History of Present Illness The patient is a 57 year old male who presents to the Emergency Room with complaints of injuries after he fell in his home this morning. The patient reports that he woke up last night and walked into his kitchen without crutches. He reports that he slipped and fell onto his buttocks. He reports a history of chronic back pain, tailbone fracture and disc herniations. He is currently under the management of Dr. Chong and a pain clinic. The patient is also postop day 5 from a right total knee replacement performed by Dr. Rodriguez. He denies any pain in the knee. Patient reports that he took oxycodone 15 mg for the pain. The patient then proceeds to talk about his prior hospital stays "with all the bureaucracy about management of my diabetes" , "and I do not want Narcan because I will go into a seizure from the pain". The patient rates his discomfort a 5 out of 10 in triage. Review of Systems HEENT: Denies dizziness, visual problems, hearing loss, tinnitus. Denies difficulty swallowing or oral lesions. PULMONARY: Denies cough, shortness of breath, sputum production or hemoptysis. CARDIOVASCULAR: Denies chest pain, palpitations, dyspnea on exertion, orthopnea or peripheral edema. GASTROINTESTINAL: Denies diarrhea, constipation, nausea, vomiting, or abdominal pain. GENITOURINARY: Denies dysuria, frequency, urgency or nocturia. NEUROLOGIC: Denies history of epilepsy, CVA, TIA or chronic headaches. MUSCULOSKELETAL: Denies history of joint tenderness/swelling. SKIN: Denies rashes or lesions. PSYCHIATRIC: Denies history of depression or mental illness. ENDOCRINE: Denies history of diabetes or thyroid disorders. Past Medical/Surgical History Medical Problems: (1) ADD (attention deficit disorder) (2) Chronic pain (3) Diverticulosis (4) DM type 2 (diabetes mellitus, type 2) (5) Dyslipidemia (6) Femur fracture (7) Hypertension (8) NARINDER on CPAP (9) Raynaud disease Surgical Problems: (1) H/O hand surgery (2) History of carpal tunnel surgery (3) Left tibial osteotomy (4) S/P left knee arthroscopy Family History FH: diabetes mellitus FH: heart disease FATHER, Onset:85 ( at 85, ID) MOTHER, Onset:53 ( at 53 ID) SISTER, Onset:52 () FH: prostate cancer BROTHER FH: rheumatoid arthritis MOTHER High cholesterol Hypertension BROTHER, Onset:43 Social History Smoking Status: Never Smoker Alcohol Use: none Drug Use: none Marital Status: Housing Status: lives with significant other, other Occupation Status: disabled Current/Historical Medications Scheduled Amitriptyline HCl (Amitriptyline HCl), 1 TAB PO HS Amlodipine (Norvasc), 10 MG PO DAILY at 5 p.m. Amphetamine-Dextroamphetamine 20MG (Adderall Xr 20MG), 20 MG PO QAM Aspirin (Aspirin Chewable), 81 MG PO HS Baclofen (Baclofen), 3 TAB PO HS Calcium Carbonate-Cholecalcife (Calcium Plus Vitamin D3), 1 TAB PO QAM Cephalexin Monohydrate (Keflex), 500 MG PO BID Docusate Sodium (Docusate Sodium), 100 MG PO BID Enoxaparin (Lovenox), 30 MG SQ Q12H Fexofenadine Hcl (Carmen Allergy), 1 TAB PO QDD Fluoxetine (Prozac), 40 MG PO QLUNCH Fluoxetine HCl (Fluoxetine HCl), 20 MG PO QAM Fluticasone Propionate (Nasal) (Flonase Allergy Relief), 1-2 SPRAY LULU HS Gabapentin (Neurontin), 400 MG PO TID Indapamide (Indapamide), 1 TAB PO QDD Ipratropium [place] (Nasal) (Ipratropium [place]), 1-2 SPRAY LULU AC Liraglutide (Victoza), 1.2 MG SC QAM Lisinopril (Zestril), 40 MG PO HS Meloxicam (Mobic), 7.5 MG PO BID Metaxalone (Skelaxin), 800 MG PO QAM Metaxalone (Skelaxin), 1,600 MG PO NOON Metformin Hcl (Glucophage), 850 MG PO BID Methylprednisolone (Medrol Dosepak), 0 PO DAILY Metoprolol Tartrate (Lopressor) (Lopressor), 50 MG PO BID Multiple Vitamin (Multi Vitamin), 1 TAB PO QDL Oxycodone HCl (Oxycontin), 1 TAB PO BID Pioglitazone (Actos), 1 TAB PO QAM Rosuvastatin Calcium (Crestor), 20 MG PO QDD Tizanidine (Tizanidine HCl), 6 MG PO HS Scheduled PRN Acetaminophen (Tylenol), 1,000 MG PO Q6 PRN for Pain Amphetamine-Dextroamphetamine 5MG (Adderall 5MG), 2.5 MG PO QDD PRN for PRN Hydroxyzine Pamoate (Vistaril), 1-2 CAP PO Q6 PRN for Itching Lactic Acid (Ammonium Lactate) (Lac-Hydrin), 1 APPLN TOP BID PRN for DRY SKIN Ondansetron Hcl (Zofran), 4-8 MG PO Q6H PRN for Nausea Oxycodone Immediate Rel Tab (Roxicodone Ir), 10 MG PO Q4H PRN for Severe Pain Oxycodone Ir (Roxicodone Ir), 5 MG PO Q4H PRN for Severe Pain Physical Exam Vital Signs Date Time Temp Pulse Resp B/P (MAP) Pulse Ox O2 Delivery O2 Flow Rate FiO2 06/04/18 15:10 36.8 104 20 137/54 92 Room Air Physical Exam CONSTITUTIONAL: Healthy and well nourished. Alert and oriented X 3. The patient is able to transfer from a wheelchair to the bed in C9 with minimal assistance. HEENT: Normocephalic, atraumatic. Pupils equal, round and reactive. NECK: Full active range of motion without discomfort. RESPIRATORY: Clear to auscultation bilaterally with no wheezing, crackles, rhonchi or stridor. CARDIOVASCULAR: Regular rate and rhythm with no murmurs, rubs or gallops. GASTROINTESTINAL: Bowel sounds present in all quadrants. Soft and nontender to palpation. MUSCULOSKELETAL: Examination shows generalized tenderness to palpation through the posterior buttocks/pelvic region. No ecchymosis appreciated. Negative logroll bilaterally. Ankle plantar/dorsiflexion strength is 4 out of 5 and symmetric bilaterally. Pedal pulses are intact. INTEGUMENTARY: No rash or other significant dermatologic conditions noted. NEUROLOGIC: No focal neurologic deficits noted. Lower extremities are sensory intact. Medical Decision & Procedures ER Provider Diagnostic Interpretation: My interpretation of lumbar spine and pelvis x-rays does not show any acute fractures. Radiologist report is as follows: L-SPINE MIN 4 VIEWS ROUTINE HISTORY: Pain LBP/pelvic pain s/p fall COMPARISON: 06/08/2017 FINDINGS: There is no fracture. Grade 1 anterolisthesis L4 on L5. This is unchanged in the prior study. No evidence for an acute compression deformity. Degenerative disc change most prominent at L4-L5 where a vacuum disc is present. IMPRESSION: Degenerative change. No acute bony abnormality. PELVIS 1 OR 2 VIEW ROUTINE CLINICAL HISTORY: LBP/pelvic pain s/p fall trauma. Pain. COMPARISON: 07/04/2015 DISCUSSION: Mild degenerative change of the hips as well as sacroiliac joints. No evidence for acute bony abnormality. Stage survey negative for fracture. No evidence for acetabular protrusion. There is no evidence for soft tissue swelling. IMPRESSION: Degenerative change. No acute process. Laboratory Results Test 06/04/18 16:03 Bedside Glucose 123 mg/dl (70-99) BSG is 123. ED Course Patient history and physical exam were performed. Nurse's notes were reviewed. Vital signs were reviewed. The patient is normotensive. As indicated in HPI , the patient is able to transfer from his wheelchair to the bed in C9 without any difficulty. The patient was rambling when asked about his current condition. He spent more time complaining about his prior hospital admission and diabetes control, although I attempted to redirect him back to his current injuries. He then started to talk about pain management, that he is allowed to take pain medications for his pain, and reports that the hospital has a habit of giving him Narcan. I again explained to the patient and I am only concerned about his current injuries from his fall. I recommended x-rays of the lumbar spine and pelvis, and the patient agreed. X-rays of the lumbar spine and pelvis were normal. When I move back to discuss findings with the patient, he immediately requested an MRI of the back. I explained that he does not have any emergent neurologic symptoms, including saddle anesthesias or incontinence consistent with cauda equina syndrome. The patient reports that he would like to talk with Dr. Eagle's office to see if they agree that he need an MRI. 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 He reports that he usually is given a prescription for a steroid when he has this type of back pain exacerbation. The patient was administered prednisone 60 mg, and will be provided a prescription for a Medrol Dosepak. The patient requested that I allow him time to speak with whoever is taking call for Dr. Chong's office. As I was getting his paperwork ready for discharge, the nurse came back and reported that he was making multiple phone calls, complaining that we were trying to kick him out of the emergency department, that we were not offering MRI studies or admission. The case was further discussed with Dr. Barton, ED attending physician, who also evaluated the patient, and reiterated the same treatment plan with corticosteroid treatment and outpatient management with Dr. Chong or the pain clinic. Medical Decision Patient presents to the emergency department for evaluation of injuries to his lower back after falling in his kitchen last night. X-rays of the lumbar spine and pelvis does not show any acute fractures. The patient reports a history of chronic back pain. He was concern for possible disc or nerve injury to the back. The patient was advised that he may need an MRI, however was also advised that is not uncommon to have these transient symptoms after a fall. He was encouraged that he does not have any emergent symptoms to warrant MRI while in the emergency department, although he does not agree. The patient does not appear to have any injury to his right knee replacement at this time. It is noted that the patient was very talkative and appears to be affected by the opioids that he took prior to arrival, and has tangential thoughts and has to redirect himself back to his line of communication. He denies any head injury. [place] Drug Monitoring Program Search Results: patient reviewed within database, see additional documentation Medication Reconcilliation Current Medication List: was personally reviewed by me Blood Pressure Screening Patient's blood pressure: Normal blood pressure Impression Primary Impression: Lumbar contusion Additional Impression: Fall in home Departure Information Dispostion Home / Self-Care Prescriptions Methylprednisolone (MEDROL DOSEPAK) 4 Mg Toni 0 PO DAILY, #1 PKT Prov: Alfredo Smith PA 06/04/18 Referrals Fercho Rodriguez M.D. Billy, Gregory G., M.D. Forms HOME CARE DOCUMENTATION FORM, IMPORTANT VISIT INFORMATION Patient Instructions My [facility] [place] [facility] Additional Instructions Intermittently apply ice to lower back and buttock region. Continue with your current pain management treatment. Take Medrol Dosepak as prescribed, next dose tomorrow afternoon. Follow-up with your pain clinic or Dr. Chong for further reevaluation of your back. Continue follow-up with Dr. Rodriguez for postoperative knee care. Problem Qualifiers Primary Impression: Lumbar contusion Encounter type: initial encounter Qualified Codes: S30.0XXA - Contusion of lower back and pelvis, initial encounter Additional Impression: Fall in home Encounter type: initial encounter Qualified Codes: W19.XXXA - Unspecified fall, initial encounter; Y92.009 - Unspecified place in unspecified non- institutional (private) residence as the place of occurrence of the external cause
[2018-06-04] MEDS ORDERED: DIAZ2TAB PO (17:12)
[2018-06-04] MEDS ORDERED: OXYC-90 PO (17:12)
[2018-06-04] MEDS ORDERED: OXYC20TA50 PO (17:12)
[2018-06-04] MEDS ORDERED: ACET1TAB84 PO (17:20)
[2018-06-04 17:26] VITALS: BP 134/75; PULSE 109; TEMP 36.8; O2SAT 93
== END 2018-06-04 17:28 | disposition home or self-care (01) ==
LOC: C.EDB 15:05 → C.EDC 17:28
DX: S30.0XXA Contusion of lower back and pelvis, initial encounter (principal); W19.XXXA Unspecified fall, initial encounter; Y92.009 Unspecified place in unspecified non-institutional (private) residence as the place of occurrence of the external cause; F90.9 Attention-deficit hyperactivity disorder, unspecified type; G89.29 Other chronic pain; E11.9 Type 2 diabetes mellitus without complications; E78.5 Hyperlipidemia, unspecified; I10 Essential (primary) hypertension; G47.33 Obstructive sleep apnea (adult) (pediatric); I73.00 Raynaud's syndrome without gangrene

== ENCOUNTER → 2018-06-05 | Outpatient (CLI) | payer OTHER ==
[~2018-06-05] MED LIST changes: +ACET1TAB84 PO; +DIAZ2TAB PO; +METH4PAK PO; -OXYC-737 PO; +OXYC20TA50 PO; -OXYSR/10 PO
[2018-06-05 14:04] LABS: HEMATOCRIT 29.3 % (42-52); HEMOGLOBIN 9.4 g/dL (14.0-18.0); MEAN CELL VOLUME 83.2 fL (80-100); MEAN CORPUSCULAR HEMOGLOBIN 26.7 pg (25-34); MEAN CORPUSCULAR HGB CONC 32.1 g/dl (32-36); PLATELET COUNT 233 K/uL (130-400); RED CELL DISTRIBUTION WIDTH CV 14.9 % (11.5-14.5); RED CELL DISTRIBUTION WIDTH SD 45.6 fL (36.4-46.3); WHITE BLOOD COUNT 5.79 K/uL (4.8-10.8)
[2018-06-05 14:32] LABS: BLOOD UREA NITROGEN 24 mg/dl (7-18); CALCIUM 9.1 mg/dl (8.5-10.1); CARBON DIOXIDE 27 mmol/L (21-32); GLUCOSE 87 mg/dl (70-99); POTASSIUM 3.8 mmol/L (3.5-5.1); SODIUM 138 mmol/L (136-145)
== END | disposition home or self-care (01) ==
LOC: C.LAB1850 13:10
PROVIDERS: ATTEND Physical Medicine & Rehabilitation Sports Medicine
DX: T14.8XXA Other injury of unspecified body region, initial encounter (principal); W19.XXXA Unspecified fall, initial encounter; M54.5 Low back pain; M17.11 Unilateral primary osteoarthritis, right knee; Z96.659 Presence of unspecified artificial knee joint

== ENCOUNTER → 2018-06-05 | Outpatient (CLI) | payer OTHER | END | disposition home or self-care (01) | LOC: C.RDSM 11:22 | PROVIDERS: ATTEND Physical Medicine & Rehabilitation Sports Medicine | DX: T14.8XXA Other injury of unspecified body region, initial encounter (principal); W19.XXXA Unspecified fall, initial encounter; M17.11 Unilateral primary osteoarthritis, right knee ==

== ENCOUNTER → 2018-06-14 | Outpatient (CLI) | payer OTHER ==
[2018-06-14 16:25] LABS: HEMATOCRIT 34.5 % (42-52); HEMOGLOBIN 11.1 g/dL (14.0-18.0); MEAN CELL VOLUME 86.3 fL (80-100); MEAN CORPUSCULAR HEMOGLOBIN 27.8 pg (25-34); MEAN CORPUSCULAR HGB CONC 32.2 g/dl (32-36); MEAN PLATELET VOLUME 10.3 fL (7.4-10.4); PLATELET COUNT 339 K/uL (130-400); RED CELL DISTRIBUTION WIDTH CV 15.3 % (11.5-14.5); RED CELL DISTRIBUTION WIDTH SD 47.4 fL (36.4-46.3); WHITE BLOOD COUNT 8.02 K/uL (4.8-10.8)
== END | disposition home or self-care (01) ==
LOC: C.LAB1850 15:11
PROVIDERS: ATTEND Physical Medicine & Rehabilitation Sports Medicine
DX: Z96.659 Presence of unspecified artificial knee joint (principal)

== ENCOUNTER 2018-11-03 19:20 | Inpatient (IN) ==
[2018-11-03] MEDS ORDERED: NALOXONE HCL 0.4 MG/1 ML VIAL/CARP ONE (19:32)
[2018-11-03] MEDS ORDERED: NALOXONE HCL 0.4 MG/1 ML VIAL/CARP IV STA ×2 (19:39)
[2018-11-03] MEDS ORDERED: SODIUM CHLORIDE 0.9% 1000ML 2,000 ML IV ONE (19:40)
[2018-11-03 20:02] LABS: Basophils # (auto) 0.02 K/uL (0-0.2); Basophils % (auto) 0.3 %; Eosinophils # (auto) 0.17 K/uL (0-0.5); Eosinophils % (auto) 2.2 %; Hemoglobin 12.9 g/dL (14.0-18.0); Immature Granulocytes # (auto) 0.05 K/uL (0.00-0.02); Immature Granulocytes % (auto) 0.7 %; Lymphocytes % (auto) 27.4 %; Mean Corpuscular Hgb Conc 32.3 g/dL (32-36); Mean Corpuscular Volume 81.1 fL (80-100); Mean Platelet Volume 11.2 fL (7.4-10.4); Monocytes # (auto) 0.69 K/uL (0.11-0.59); Neutrophils # (auto) 4.64 K/uL (1.4-6.5); Neutrophils % (auto) 60.4 %; Platelet Count 287 K/uL (130-400); RDW Coefficient of Variation 16.1 % (11.5-14.5); RDW Standard Deviation 47.9 fL (36.4-46.3); Red Blood Count 4.93 M/uL (4.7-6.1); White Blood Count 7.67 K/uL (4.8-10.8)
[2018-11-03 20:03] LABS: Base Excess VBG -2.1 mEq/L; HCO3 VBG 25 mmol/L; PCO2 VBG 51 mmHg (38-50); PO2 VBG 26 mmHg
[2018-11-03 20:07] LABS: Appearance Urine Cloudy (Clear); Bacteria Urine Automated Negative (Negative); Bilirubin Urine Negative (Negative); Color Urine Dark Yellow; Glucose Urine UA Negative (Negative); Ketones Urine Trace (Negative); Leukocyte Esterase Urine Negative (Negative); Nitrite Urine Negative (Negative); Protein Urine Negative (Negative); Specific Gravity Urine 1.028 (1.000-1.030); Urobilinogen Urine Negative (Negative); WBC Urine Automated 0 /hpf (0-5)
--- NOTE | 2018-11-03 20:09 | XRay Report ---
SINGLE VIEW CHEST CLINICAL HISTORY: Change in mental status. FINDINGS: An AP, portable, upright chest radiograph is compared to study dated 07/03/2016. The examinat ion is degraded by portable technique and patient rotation. The heart is enlarged. The pulmonary vas culature is noncongested. Chronic interstitial thickening and elevation of the right hemidiaphragm ar e similar to previous. There is bibasilar atelectasis. No airspace consolidation or large pleural eff usion is identified. No pneumothorax is seen. The skeletal structures are osteopenic. The bony thorax is grossly intact. IMPRESSION: Cardiomegaly with no acute cardiopulmonary abnormality. Electronically signed by: Rommel Rodríguez M.D. 11/03/2018 8:07 PM
[2018-11-03 20:11] LABS: Oxygen Saturation VBG < 60.0 %
[2018-11-03 20:12] LABS: INR 1.1 (0.9-1.1); Partial Thromboplastin Time 26.9 Seconds (21.0-31.0); Prothrombin Time 10.6 Seconds (9.0-12.0)
--- NOTE | 2018-11-03 20:13 | CT Scan Report ---
CT SCAN OF THE BRAIN WITHOUT IV CONTRAST CLINICAL HISTORY: Change in mental status. COMPARISON STUDY: CT of the brain dated 07/03/2016. TECHNIQUE: Unenhanced axial CT scan of the brain is performed from the vertex to the skull base. A d ose lowering technique was utilized adhering to the principles of ALARA. Examination is modestly degr aded by motion artifact. CT DOSE: 1311.06 mGy.cm FINDINGS: Brain parenchyma: The brain parenchyma is normal in appearance. There is no hemorrhage, mass effect, or evidence of acute territorial ischemia by CT criteria. Bo-white matter differentiation is preser sofía. No extra-axial fluid collection is seen. Ventricles, sulci, cisterns: Normal in configuration. Intracranial vasculature: There is atherosclerotic calcification of the cavernous carotid and vertebr al arteries. Calvarium: Unremarkable. Sinuses and mastoids: The visualized paranasal sinuses are clear. The mastoid air cells are well pneu matized. Orbits: The bony orbits are grossly intact. Mild proptosis is suggested. IMPRESSION: There is no hemorrhage, mass effect, or evidence of acute territorial ischemia by CT carlito coy. Electronically signed by: Rommel Rodríguez M.D. 11/03/2018 8:11 PM
[2018-11-03 20:17] LABS: Epithelial Cell Urine Auto 0-5 /lpf (0-5)
[2018-11-03 20:18] LABS: Amorphous Sediment Urine Present (None Prsent)
[2018-11-03 20:19] LABS: BUN Creatinine Ratio 11.6 (10-20); Blood Urea Nitrogen 32 mg/dl (7-18); Calcium 9.4 mg/dl (8.5-10.1); Carbon Dioxide 24 mmol/L (21-32); Chloride 101 mmol/L (98-107); Creatinine Clr Calc Pharmacy 34.9 ml/min; Est GFR (African American) 28.4; Est GFR (Non-African American) 24.5; Glucose 127 mg/dl (70-99); Potassium 4.9 mmol/L (3.5-5.1); Sodium 134 mmol/L (136-145)
[2018-11-03 20:24] LABS: Troponin I < 0.015 ng/ml (0-0.045)
[2018-11-03 20:29] LABS: Amphetamines+Metham, Urine Pos (Neg); Barbiturates, Urine Neg (Neg); Benzodiazepine, Urine Pos (Neg); Cocaine, Urine Neg (Neg); MDMA (Ecstacy), Urine Neg (Neg); Methadone, Urine Neg (Neg); Opiate, Urine Pos (Neg); Phencyclidine, Urine Neg (Neg)
--- NOTE | 2018-11-03 21:14 | History & Physical Report ---
Date of Service November 03, 2018 History of Present Illness Primary Care Provider: Rich Otoole Allergies Allergy/AdvReac Type Severity Reaction Status Date / Time simvastatin Allergy Unknown MUSCLE Verified 06/04/18 16:46 WEAKNESS,TINGLING Home Medications Home Medications Medication Instructions Recorded Confirmed Type acetaminophen [Tylenol Extra 500 mg PO Q6H PRN 11/03/18 11/03/18 History Strength] amitriptyline 25 mg PO HS 11/03/18 11/03/18 History amlodipine 10 mg PO DAILY 11/03/18 11/03/18 History ammonium lactate 1 applic TOPICAL BID PRN 11/03/18 11/03/18 History aspirin [Aspir-Low] 81 mg PO DAILY 11/03/18 11/03/18 History baclofen 60 mg PO HS 11/03/18 11/03/18 History calcium carbonate-vitamin D3 1 tab PO DAILY 11/03/18 11/03/18 History [Calcium 600 with Vitamin D3] cephalexin [Keflex] 500 mg PO BID 11/03/18 11/03/18 History dextroamphetamine 5 mg PO DAILY PRN 11/03/18 11/03/18 History dextroamphetamine-amphetamine 30 mg PO QAM 11/03/18 11/03/18 History diazepam 2.5 - 5 mg PO HS 11/03/18 11/03/18 History docusate sodium [DOK] 100 mg PO BID 11/03/18 11/03/18 History fexofenadine [Carmen Allergy] 180 mg PO DAILY 11/03/18 11/03/18 History fluoxetine 60 mg PO DAILY 11/03/18 11/03/18 History fluticasone [Flonase Allergy 2 spray INTRANASAL DAILY 11/03/18 11/03/18 History Relief] gabapentin 400 mg PO TIDM 11/03/18 11/03/18 History guaifenesin [Mucinex] 600 mg PO Q12H PRN 11/03/18 11/03/18 History hydroxyzine HCl 25 - 50 mg PO Q6 PRN 11/03/18 11/03/18 History indapamide 1.25 mg PO QAM 11/03/18 11/03/18 History ipratropium bromide 2 spray INTRANASAL QID PRN 11/03/18 11/03/18 History ketoconazole 1 applic TOPICAL BID 11/03/18 11/03/18 History liraglutide [Victoza 3-Toni] 1.2 mg SUBCUT DAILY 11/03/18 11/03/18 History lisinopril 40 mg PO DAILY 11/03/18 11/03/18 History meloxicam 7.5 mg PO BID 11/03/18 11/03/18 History metaxalone 800 mg PO TID 11/03/18 11/03/18 History metformin 850 mg PO BID 11/03/18 11/03/18 History metoprolol tartrate 50 mg PO BID 11/03/18 11/03/18 History ondansetron HCl 4 mg PO Q6 PRN 11/03/18 11/03/18 History oxycodone 5 mg PO QID PRN 11/03/18 11/03/18 History oxycodone 20 mg PO Q12H 11/03/18 11/03/18 History pioglitazone [Actos] 30 mg PO DAILY 11/03/18 11/03/18 History rosuvastatin 20 mg PO DAILY 11/03/18 11/03/18 History Past Med/Surg History Medical History Diverticulosis (Chronic) NARINDER on CPAP (Chronic) DM type 2 (diabetes mellitus, type 2) (Chronic) Dyslipidemia (Chronic) Raynaud disease (Chronic) Hypertension (Chronic) Chronic pain (Chronic) ADD (attention deficit disorder) (Chronic) Femur fracture (Chronic) "S/P repair" Surgical History History of carpal tunnel surgery (Chronic) H/O hand surgery (Chronic) S/P left knee arthroscopy (Chronic) Social History Smoking Status: Unknown if ever smoked Physical Exam 2 Vital Signs (Past 24 Hours): Last Vital Signs Pulse 79 11/03/18 20:31 Resp 18 11/03/18 20:31 BP 126/64 11/03/18 20:31 Pulse Ox 100 11/03/18 20:31 Results & Data Laboratory Results Laboratory Results WBC 7.67 K/uL (4.8-10.8) 11/03/18 19:00 RBC 4.93 M/uL (4.7-6.1) 11/03/18 19:00 Hgb 12.9 g/dL (14.0-18.0) L 11/03/18 19:00 Hct 40.0 % (42-52) L 11/03/18 19:00 MCV 81.1 fL (80-100) 11/03/18 19:00 MCH 26.2 pg (25-34) 11/03/18 19:00 MCHC 32.3 g/dL (32-36) 11/03/18 19:00 RDW Std Deviation 47.9 fL (36.4-46.3) H 11/03/18 19:00 RDW Coeff of Kiki 16.1 % (11.5-14.5) H 11/03/18 19:00 Plt Count 287 K/uL (130-400) 11/03/18 19:00 MPV 11.2 fL (7.4-10.4) H 11/03/18 19:00 Immature Gran % (Auto) 0.7 % 11/03/18 19:00 Neut % (Auto) 60.4 % 11/03/18 19:00 Lymph % (Auto) 27.4 % 11/03/18 19:00 [place] % (Auto) 9.0 % 11/03/18 19:00 Eos % (Auto) 2.2 % 11/03/18 19:00 Baso % (Auto) 0.3 % 11/03/18 19:00 Immature Gran # (Auto) 0.05 K/uL (0.00-0.02) H 11/03/18 19:00 Neut # (Auto) 4.64 K/uL (1.4-6.5) 11/03/18 19:00 Lymph # (Auto) 2.10 K/uL (1.2-3.4) 11/03/18 19:00 [place] # (Auto) 0.69 K/uL (0.11-0.59) H 11/03/18 19:00 Eos # (Auto) 0.17 K/uL (0-0.5) 11/03/18 19:00 Baso # (Auto) 0.02 K/uL (0-0.2) 11/03/18 19:00 PT 10.6 Seconds (9.0-12.0) 11/03/18 19:00 INR 1.1 (0.9-1.1) 11/03/18 19:00 APTT 26.9 Seconds (21.0-31.0) 11/03/18 19:00 PTT Ratio 1.0 11/03/18 19:00 VBG pH 7.30 (7.36-7.41) L 11/03/18 19:52 VBG pCO2 51 mmHg (38-50) H 11/03/18 19:52 VBG pO2 26 mmHg 11/03/18 19:52 VBG HCO3 25 mmol/L 11/03/18 19:52 VBG O2 Saturation < 60.0 % 11/03/18 19:52 VBG Base Excess -2.1 mEq/L 11/03/18 19:52 Barometric Pressure 725.5 mm/Hg 11/03/18 19:52 Sodium 134 mmol/L (136-145) L 11/03/18 19:00 Potassium 4.9 mmol/L (3.5-5.1) 11/03/18 19:00 Chloride 101 mmol/L (98-107) 11/03/18 19:00 Carbon Dioxide 24 mmol/L (21-32) 11/03/18 19:00 Anion Gap 9.0 (3-11) 11/03/18 19:00 BUN 32 mg/dl (7-18) H 11/03/18 19:00 Creatinine 2.75 mg/dl (0.6-1.4) H 11/03/18 19:00 Est Cr Clr Drug Dosing 34.9 ml/min 11/03/18 19:00 Est GFR ( Amer) 28.4 11/03/18 19:00 Est GFR (Non-Af Amer) 24.5 11/03/18 19:00 BUN/Creatinine Ratio 11.6 (10-20) 11/03/18 19:00 Glucose 127 mg/dl (70-99) H 11/03/18 19:00 POC Glucose 130 (70-99) H 11/03/18 19:25 Lactate 1.6 mmol/L (0.4-2.0) 11/03/18:52 Calcium 9.4 mg/dl (8.5-10.1) 11/03/18 19:00 Ammonia 15.1 umol/L (11-32) 11/03/18 19:52 Troponin I < 0.015 ng/ml (0-0.045) 11/03/18 19:00 Urine Color Dark Yellow 11/03/18 19:48 Urine Appearance Cloudy (Clear) H 11/03/18 19:48 Urine pH 5.0 (4.5-7.5) 11/03/18 19:48 Ur Specific [place] 1.028 (1.000-1.030) 11/03/18 19:48 Urine Protein Negative (Negative) 11/03/18 19:48 Urine Glucose (UA) Negative (Negative) 11/03/18 19:48 Urine Ketones Trace (Negative) H 11/03/18 19:48 Urine Blood Negative (Negative) 11/03/18 19:48 Urine Nitrite Negative (Negative) 11/03/18 19:48 Urine Bilirubin Negative (Negative) 11/03/18 19:48 Urine Urobilinogen Negative (Negative) 11/03/18 19:48 Ur Leukocyte Esterase Negative (Negative) 11/03/18 19:48 Urine WBC (Auto) 0 /hpf (0-5) 11/03/18 19:48 Urine RBC (Auto) 0-4 /hpf (0-4) 11/03/18 19:48 U Hyaline Cast (Auto) 1-5 /lpf (0-5) 11/03/18 19:48 U Epithel Cells (Auto) 0-5 /lpf (0-5) 11/03/18 19:48 Urine Bacteria (Auto) Negative (Negative) 11/03/18 19:48 Amorphous Sediment Present (None Prsent) H 11/03/18 19:48 Urine Opiates Screen Pos (Neg) H 11/03/18 19:48 Ur Methadone, Qual Neg (Neg) 11/03/18 19:48 Urine Barbiturates Neg (Neg) 11/03/18 19:48 Ur Phencyclidine (PCP) Neg (Neg) 11/03/18 19:48 U Amphetamin/Meth Scrn Pos (Neg) H 11/03/18 19:48 MDMA (Ecstasy) Screen Neg (Neg) 11/03/18 19:48 U Benzodiazepines Scrn Pos (Neg) H 11/03/18 19:48 Ur Cocaine Metabolite Neg (Neg) 11/03/18 19:48 U Marijuana (THC) Screen Neg (Neg) 11/03/18 19:48 Ethyl Alcohol mg/dL < 3.0 mg/dl (0-3) 11/03/18 19:52
--- NOTE | 2018-11-03 21:53 | History & Physical Report ---
Date of Service November 03, 2018 Assessment & Plan (1) Respiratory acidosis: (2) Polysubstance overdose: -Admit to ICU -Patient presenting with an altered mental status and found to be "acting funny " while out at the local [employer] -Patient is prescribed several medications for chronic pain and ADD including: Metaxalone, baclofen, fluoxetine, Adderall, oxycodone, OxyContin, diazepam, gabapentin, hydroxyzine, amitriptyline -Outpatient chart review reveals history of prior polysubstance abuse and overdose with terminated medication use agreement with Eugenie -Upon arrival to the ED, patient was found to be hypotensive with systolic blood pressures in the 60s; patient received 2 doses of Narcan and IVF with improvement and blood pressure and mild improvement in mental status -VBG demonstrates a mild respiratory acidosis with pH 7.3, PCO2 51, HCO3 25 -will hold all sedating medications (will continue fluoxetine to prevent serotonin syndrome), continue IVF, recheck ABG upon arrival to ICU, further Narcan if needed (3) RUDY (acute kidney injury): -Likely prerenal in combination with use of nephrotoxic meds including meloxicam, lisinopril, indapamide -Hold nephrotoxic agents, give IVF, monitor renal functions closely (4) Chronic pain: (5) ADD (attention deficit disorder): -Medications as above (6) Hypertension: -Given hypotension/RUDY on arrival, holding metoprolol, amlodipine, lisinopril, indapamide (7) DM type 2 (diabetes mellitus, type 2): -Hgb A1c 6.7 04/2018 -Hold oral agents and Victoza and utilize NovoLog per protocol while hospitalized (8) History of septic arthritis: -On chronic Keflex, continue (9) NARINDER on CPAP: -CPAP as per home settings (10) Dyslipidemia: -Continue statin (11) DVT prophylaxis: -SQ heparin History of Present Illness Chief Complaint: Altered mental status Primary Care Provider: Rich Otoole 57-year-old male who was brought to the ED for altered mental status. There is currently no one accompanying the patient at this time. History is limited from the patient secondary to his mental status. Per ED, patient was out to dinner when he started to "act funny". Patient reports he was at the local [employer] and had a "couple of sips of beer and oxycodone". He reports that they called EMS whenever he started to act abnormal. Per chart review, patient has history of polysubstance abuse. He is currently prescribed oxycodone, OxyContin, Adderall and other sedating medications. Upon arrival to the ER, patient was hypotensive with systolics as low as the 60s. He was given 2 doses of Narcan and IV fluids with some improvement in symptoms. At the time my exam, patient remains difficult to arouse at times and back to sleep quickly during exam. Labs show a mild respiratory acidosis and also AK I with creatinine of 2.75. Allergies Allergy/AdvReac Type Severity Reaction Status Date / Time simvastatin Allergy Unknown MUSCLE Verified 06/04/18 16:46 WEAKNESS,TINGLING Home Medications Home Medications Medication Instructions Recorded Confirmed Type acetaminophen [Tylenol Extra 500 mg PO Q6H PRN 11/03/18 11/03/18 History Strength] amitriptyline 25 mg PO HS 11/03/18 11/03/18 History amlodipine 10 mg PO DAILY 11/03/18 11/03/18 History ammonium lactate 1 applic TOPICAL BID PRN 11/03/18 11/03/18 History aspirin [Aspir-Low] 81 mg PO DAILY 11/03/18 11/03/18 History baclofen 60 mg PO HS 11/03/18 11/03/18 History calcium carbonate-vitamin D3 1 tab PO DAILY 11/03/18 11/03/18 History [Calcium 600 with Vitamin D3] cephalexin 500 mg PO BID 11/03/18 11/03/18 History dextroamphetamine 5 mg PO DAILY PRN 11/03/18 11/03/18 History dextroamphetamine-amphetamine 30 mg PO QAM 11/03/18 11/03/18 History diazepam 2.5 - 5 mg PO HS 11/03/18 11/03/18 History docusate sodium [DOK] 100 mg PO BID 11/03/18 11/03/18 History fexofenadine [Carmen Allergy] 180 mg PO DAILY 11/03/18 11/03/18 History fluoxetine 60 mg PO DAILY 11/03/18 11/03/18 History fluticasone [Flonase Allergy 2 spray INTRANASAL DAILY 11/03/18 11/03/18 History Relief] gabapentin 400 mg PO TIDM 11/03/18 11/03/18 History guaifenesin [Mucinex] 600 mg PO Q12H PRN 11/03/18 11/03/18 History hydroxyzine HCl 25 - 50 mg PO Q6 PRN 11/03/18 11/03/18 History indapamide 2.5 mg PO QAM 11/03/18 11/03/18 History ipratropium bromide 2 spray INTRANASAL QID PRN 11/03/18 11/03/18 History ketoconazole 1 applic TOPICAL BID 11/03/18 11/03/18 History liraglutide [Victoza 3-Toni] 1.2 mg SUBCUT DAILY 11/03/18 11/03/18 History lisinopril 40 mg PO DAILY 11/03/18 11/03/18 History meloxicam 7.5 mg PO BID 11/03/18 11/03/18 History metaxalone 800 mg PO TID 11/03/18 11/03/18 History metformin 850 mg PO BID 11/03/18 11/03/18 History metoprolol tartrate 50 mg PO BID 11/03/18 11/03/18 History multivitamin 1 tab PO DAILY 11/03/18 11/03/18 History ondansetron HCl 4 mg PO Q6 PRN 11/03/18 11/03/18 History oxycodone 5 mg PO QID PRN 11/03/18 11/03/18 History oxycodone 20 mg PO Q12H 11/03/18 11/03/18 History pioglitazone [Actos] 30 mg PO DAILY 11/03/18 11/03/18 History rosuvastatin 20 mg PO DAILY 11/03/18 11/03/18 History Past Med/Surg History Medical History History of septic arthritis (Chronic) Diverticulosis (Chronic) NARINDER on CPAP (Chronic) DM type 2 (diabetes mellitus, type 2) (Chronic) Dyslipidemia (Chronic) Raynaud disease (Chronic) Hypertension (Chronic) Chronic pain (Chronic) ADD (attention deficit disorder) (Chronic) Femur fracture (Chronic) "S/P repair" Surgical History History of carpal tunnel surgery (Chronic) H/O hand surgery (Chronic) S/P left knee arthroscopy (Chronic) Status post total knee replacement, right (Chronic) Social History Smoking Status: Unknown if ever smoked Review of Systems Unobtainable due to cognitive status Physical Exam 2 Vital Signs (Past 24 Hours): Last Vital Signs Pulse 78 11/03/18 21:31 Resp 14 11/03/18 21:31 BP 94/58 L 11/03/18 21:31 Pulse Ox 99 11/03/18 21:31 Physical Exam: please refer to Dr. Jaeger's addendum for physical exam Results & Data Laboratory Results Laboratory Last Values WBC 7.67 K/uL (4.8-10.8) 11/03/18 19:00 RBC 4.93 M/uL (4.7-6.1) 11/03/18 19:00 Hgb 12.9 g/dL (14.0-18.0) L 11/03/18 19:00 Hct 40.0 % (42-52) L 11/03/18 19:00 MCV 81.1 fL (80-100) 11/03/18 19:00 MCH 26.2 pg (25-34) 11/03/18 19:00 MCHC 32.3 g/dL (32-36) 11/03/18 19:00 RDW Std Deviation 47.9 fL (36.4-46.3) H 11/03/18 19:00 RDW Coeff of Kiki 16.1 % (11.5-14.5) H 11/03/18 19:00 Plt Count 287 K/uL (130-400) 11/03/18 19:00 MPV 11.2 fL (7.4-10.4) H 11/03/18 19:00 Immature Gran % (Auto) 0.7 % 11/03/18 19:00 Neut % (Auto) 60.4 % 11/03/18 19:00 Lymph % (Auto) 27.4 % 11/03/18 19:00 [place] % (Auto) 9.0 % 11/03/18 19:00 Eos % (Auto) 2.2 % 11/03/18 19:00 Baso % (Auto) 0.3 % 11/03/18 19:00 Immature Gran # (Auto) 0.05 K/uL (0.00-0.02) H 11/03/18 19:00 Neut # (Auto) 4.64 K/uL (1.4-6.5) 11/03/18 19:00 Lymph # (Auto) 2.10 K/uL (1.2-3.4) 11/03/18 19:00 [place] # (Auto) 0.69 K/uL (0.11-0.59) H 11/03/18 19:00 Eos # (Auto) 0.17 K/uL (0-0.5) 11/03/18 19:00 Baso # (Auto) 0.02 K/uL (0-0.2) 11/03/18 19:00 PT 10.6 Seconds (9.0-12.0) 11/03/18 19:00 INR 1.1 (0.9-1.1) 11/03/18 19:00 APTT 26.9 Seconds (21.0-31.0) 11/03/18 19:00 PTT Ratio 1.0 11/03/18 19:00 VBG pH 7.30 (7.36-7.41) L 11/03/18 19:52 VBG pCO2 51 mmHg (38-50) H 11/03/18 19:52 VBG pO2 26 mmHg 11/03/18 19:52 VBG HCO3 25 mmol/L 11/03/18 19:52 VBG O2 Saturation < 60.0 % 11/03/18 19:52 VBG Base Excess -2.1 mEq/L 11/03/18 19:52 Barometric Pressure 725.5 mm/Hg 11/03/18 19:52 Sodium 134 mmol/L (136-145) L 11/03/18 19:00 Potassium 4.9 mmol/L (3.5-5.1) 11/03/18 19:00 Chloride 101 mmol/L (98-107) 11/03/18 19:00 Carbon Dioxide 24 mmol/L (21-32) 11/03/18 19:00 Anion Gap 9.0 (3-11) 11/03/18 19:00 BUN 32 mg/dl (7-18) H 11/03/18 19:00 Creatinine 2.75 mg/dl (0.6-1.4) H 11/03/18 19:00 Est Cr Clr Drug Dosing 34.9 ml/min 11/03/18 19:00 Est GFR ( Amer) 28.4 11/03/18 19:00 Est GFR (Non-Af Amer) 24.5 11/03/18 19:00 BUN/Creatinine Ratio 11.6 (10-20) 11/03/18 19:00 Glucose 127 mg/dl (70-99) H 11/03/18 19:00 POC Glucose 130 (70-99) H 11/03/18 19:25 Lactate 1.6 mmol/L (0.4-2.0) 11/03/18 19:52 Calcium 9.4 mg/dl (8.5-10.1) 11/03/18 19:00 Ammonia 15.1 umol/L (11-32) 11/03/18 19:52 Troponin I < 0.015 ng/ml (0-0.045) 11/03/18 19:00 Urine Color Dark Yellow 11/03/18 19:48 Urine Appearance Cloudy (Clear) H 11/03/18 19:48 Urine pH 5.0 (4.5-7.5) 11/03/18 19:48 Ur Specific [place] 1.028 (1.000-1.030) 11/03/18 19:48 Urine Protein Negative (Negative) 11/03/18 19:48 Urine Glucose (UA) Negative (Negative) 11/03/18 19:48 Urine Ketones Trace (Negative) H 11/03/18 19:48 Urine Blood Negative (Negative) 11/03/18 19:48 Urine Nitrite Negative (Negative) 11/03/18 19:48 Urine Bilirubin Negative (Negative) 11/03/18 19:48 Urine Urobilinogen Negative (Negative) 11/03/18 19:48 Ur Leukocyte Esterase Negative (Negative) 11/03/18 19:48 Urine WBC (Auto) 0 /hpf (0-5) 11/03/18 19:48 Urine RBC (Auto) 0-4 /hpf (0-4) 11/03/18 19:48 U Hyaline Cast (Auto) 1-5 /lpf (0-5) 11/03/18 19:48 U Epithel Cells (Auto) 0-5 /lpf (0-5) 11/03/18 19:48 Urine Bacteria (Auto) Negative (Negative) 11/03/18 19:48 Amorphous Sediment Present (None Prsent) H 11/03/18 19:48 Urine Opiates Screen Pos (Neg) H 11/03/18 19:48 Ur Methadone, Qual Neg (Neg) 11/03/18 19:48 Urine Barbiturates Neg (Neg) 11/03/18 19:48 Ur Phencyclidine (PCP) Neg (Neg) 11/03/18 19:48 U Amphetamin/Meth Scrn Pos (Neg) H 11/03/18 19:48 MDMA (Ecstasy) Screen Neg (Neg) 11/03/18 19:48 U Benzodiazepines Scrn Pos (Neg) H 11/03/18 19:48 Ur Cocaine Metabolite Neg (Neg) 11/03/18 19:48 U Marijuana (THC) Screen Neg (Neg) 11/03/18 19:48 Ethyl Alcohol mg/dL < 3.0 mg/dl (0-3) 11/03/18 19:52 Diagnostic Findings CXR IMPRESSION: Cardiomegaly with no acute cardiopulmonary abnormality. HEAD CT IMPRESSION: There is no hemorrhage, mass effect, or evidence of acute territorial ischemia by CT criteria. Code Status & VTE Plan VTE Prophylaxis Plan VTE Prophylaxis will be ordered: Yes Supervising Physician Co-Signing Physician Notes I saw this patient with the WET [employer] HEAD, I participated in the history, physical, review of systems, and physical exam. I reviewed the medications with the patient and the W[employer] HEAD and helped reconcile the medications. I helped take a detailed family and social history as well. I formulated the assessment and plan personally with the W[employer] HEAD went over it with the patient. ROS-No Headache, No Visual Changes, No Fever, No Chills, No Neck Pain or Stiffness, No Chest Pain, No Palpitations, No SOB, No CHRISTIANSEN, No Cough, No Sputum, No Wheezing, No Abdominal Pain, No Diarrhea, No Hematemesis, No Hemoptysis, No Unexpected Weight Loss, No Flank pain, No Melena, No Hematochezia, No Frequency , No Urgency, No Burning, No Hematuria, No Rashes, No Diaphoresis. Appetite is Normal. Physical Exam Gen-Groggy, NAD, Afebrile, unkept Head-NCAT, EOMI, PERRLA, Anicteric Sclera, No Posterior Pharyngeal Erythema Neck-Supple, No JVD, No Thyromegaly, No Masses, No LAD, No Bruits Lungs-Clear to Auscultation Bilaterally, No Rales, No Rhonchi, No Wheezing, No Crepitus Chest-No S4, +S1, +S2, No S3, No Murmurs, No Rubs, No Gallops, No Ectopy Abdomen-Soft, Bowel Sounds Present, Non Tender, Non Distended, No Hepatomegaly, No Splenomegaly, No Palpable Masses, No Rebound, No Rigidity, No Guarding Musculoskeletal-Full Range of Motion Bilaterally, No CVAT Extremities-No Cyanosis, No Clubbing, No Edema Nuero-Cranial Nerves II-XII grossly intact, Motor WNL, DTRs WNL, Strength WNL, No Focal Psych-Somnolent
[2018-11-03] MEDS ORDERED: CARBOHYDRATES FOR HYPOGLYCEMIA PO PRN (21:58)
[2018-11-03] MEDS ORDERED: ICU PROTOCOL FOR HYPERGLYCEMIA PRN (21:58)
[2018-11-03] MEDS ORDERED: GLUCOSE 10 TABS/TUBE PO PRN (21:58)
[2018-11-03] MEDS ORDERED: NALOXONE HCL 0.4 MG/1 ML VIAL/CARP IV PRN (21:58)
[2018-11-03] MEDS ORDERED: GLUCAGON FOR INJ 1 MG VIAL SQ PRN (21:58)
[2018-11-03] MEDS ORDERED: DEXTROSE 50% 50 ML SYRINGE IV PRN (21:58)
[2018-11-03] MEDS ORDERED: GLUCOSE 40% GEL 15 GM TUBE PO PRN (21:58)
[2018-11-03] MEDS: SODIUM CHLORIDE 0.9% 1000ML 1,000 ML IV SCH (22:23)
[2018-11-03 22:55] LABS: iSTAT Allen Test Pass; iSTAT Arterial Blood Gas HCO3 22 meg/L (19-24); iSTAT Carbon Dioxide 23 mEq/l (24-31); iSTAT FiO2 21 %
[2018-11-03] MEDS ORDERED: SODIUM CHLORIDE 0.9% 1000ML 1,000 ML IV ONE (23:18)
[2018-11-03] MEDS: HEPARIN SOD 5,000 UNIT/0.5 ML VIAL SQ SCH (23:33)
[2018-11-03] MEDS: INSULIN ASPART 100 UNITS/ML 3 ML PEN SC SCH (23:40)
--- NOTE | 2018-11-03 23:51 | Emergency Department Note ---
Entered by Nelia Ruiz acting as a scribe for History of Present Illness General Chief complaint: Unresponsive Stated complaint: ALOC, LETHARGIC Time Seen by Provider: 11/03/18 19:25 Source: patient and EMS History of Present Illness Onset (ago): hour(s) 1 Location: head (Unresponsive) Pain Consistency: + other (Persistent) Quality: + other (Unresponsive) Exacerbated By: + medication (Valium) Associated symptoms: no other (Fall.) Treatments prior to arrival: other (4L oxygen via nasal cannula) The patient is a 57 year old male who presents to the Emergency Room with complaints of persistent unresponsiveness 1 hour [employer]. EMS reports that the patient was at the bar and began to have a muscle spasm. They reports that the patient took a pill of Valium and became very weak and lost consciousness. They reports that the patient normally takes a pill of Valium for muscle spasms. EMS states that the patient is only responsive to a sternum rub. They add that they put the patient on 4L of oxygen via nasal cannula [employer]. The patient reports that he has a few sips on 1 beer. He notes that he took a pill of Oxycodone 4 hours ago and reported that he took a pill of Valium at the bar [employer]. He denies falling. The HPI and ROS are limited due to AMS. Home Medications Home Medications Medication Instructions Recorded Confirmed Type acetaminophen [Tylenol Extra 500 mg PO Q6H PRN 11/03/18 11/03/18 History Strength] amitriptyline 25 mg PO HS 11/03/18 11/03/18 History amlodipine 10 mg PO DAILY 11/03/18 11/03/18 History ammonium lactate 1 applic TOPICAL BID PRN 11/03/18 11/03/18 History aspirin [Aspir-Low] 81 mg PO DAILY 11/03/18 11/03/18 History baclofen 60 mg PO HS 11/03/18 11/03/18 History calcium carbonate-vitamin D3 1 tab PO DAILY 11/03/18 11/03/18 History [Calcium 600 with Vitamin D3] cephalexin 500 mg PO BID 11/03/18 11/03/18 History dextroamphetamine 5 mg PO DAILY PRN 11/03/18 11/03/18 History dextroamphetamine-amphetamine 30 mg PO QAM 11/03/18 11/03/18 History diazepam 2.5 - 5 mg PO HS 11/03/18 11/03/18 History docusate sodium [DOK] 100 mg PO BID 11/03/18 11/03/18 History fexofenadine [Carmen Allergy] 180 mg PO DAILY 11/03/18 11/03/18 History fluoxetine 60 mg PO DAILY 11/03/18 11/03/18 History fluticasone [Flonase Allergy 2 spray INTRANASAL DAILY 11/03/18 11/03/18 History Relief] gabapentin 400 mg PO TIDM 11/03/18 11/03/18 History guaifenesin [Mucinex] 600 mg PO Q12H PRN 11/03/18 11/03/18 History hydroxyzine HCl 25 - 50 mg PO Q6 PRN 11/03/18 11/03/18 History indapamide 2.5 mg PO QAM 11/03/18 11/03/18 History ipratropium bromide 2 spray INTRANASAL QID PRN 11/03/18 11/03/18 History ketoconazole 1 applic TOPICAL BID 11/03/18 11/03/18 History liraglutide [Victoza 3-Toni] 1.2 mg SUBCUT DAILY 11/03/18 11/03/18 History lisinopril 40 mg PO DAILY 11/03/18 11/03/18 History meloxicam 7.5 mg PO BID 11/03/18 11/03/18 History metaxalone 800 mg PO TID 11/03/18 11/03/18 History metformin 850 mg PO BID 11/03/18 11/03/18 History metoprolol tartrate 50 mg PO BID 11/03/18 11/03/18 History multivitamin 1 tab PO DAILY 11/03/18 11/03/18 History ondansetron HCl 4 mg PO Q6 PRN 11/03/18 11/03/18 History oxycodone 5 mg PO QID PRN 11/03/18 11/03/18 History oxycodone 20 mg PO Q12H 11/03/18 11/03/18 History pioglitazone [Actos] 30 mg PO DAILY 11/03/18 11/03/18 History rosuvastatin 20 mg PO DAILY 11/03/18 11/03/18 History Allergies Allergy/AdvReac Type Severity Reaction Status Date / Time simvastatin Allergy Unknown MUSCLE Verified 06/04/18 16:46 WEAKNESS,TINGLING Past Med/Surg History Medical History History of septic arthritis (Chronic) Diverticulosis (Chronic) NARINDER on CPAP (Chronic) DM type 2 (diabetes mellitus, type 2) (Chronic) Dyslipidemia (Chronic) Raynaud disease (Chronic) Hypertension (Chronic) Chronic pain (Chronic) ADD (attention deficit disorder) (Chronic) Femur fracture (Chronic) "S/P repair" Surgical History History of carpal tunnel surgery (Chronic) H/O hand surgery (Chronic) S/P left knee arthroscopy (Chronic) Status post total knee replacement, right (Chronic) Social History Current Living Situation: Alone Other Information That Helps Us Care for You: No Feels Safe at Home: Yes Safety Concerns: Feels Safe At This Time Smoking Status: Former smoker Do You Dip or Chew Tobacco: No Second Hand Exposure: No Hx Alcohol Use: Yes Alcohol type: beer and hard liquor Alcohol Intake Frequency : 0-2 drinks per day Hx Substance Use: No Beliefs That Will Affect Care: None Preferred Language: Telugu Communication Ability: Somnolent Addiction Psychiatrist Required: No Review of Systems The HPI and ROS are limited due to AMS. Physical Exam Vital Signs Vital Signs - 24 hr 11/03/18 19:23 11/03/18 19:26 11/03/18 19:27 Temperature Temperature Source Sepsis New/Unexplained Change in Mental Status Yes Sepsis Action Taken by Nursing No Action Required Pulse Rate 72 70 72 Pulse Rate [Apical] Pulse Rhythm [Apical] Pulse Strength [Apical] Respiratory Rate 23 11 L 16 Respiratory Effort / Characteristics Respiratory Depth Respiratory Pattern Blood Pressure 84/53 L 62/47 L 84/53 L Blood Pressure [Right Arm] Blood Pressure Mean 63 52 63 Blood Pressure Mean [Right Arm] Blood Pressure Position Lying Pulse Oximetry 95 93 94 Oxygen Delivery Method Room Air Oxygen Flow Rate 11/03/18 19:34 11/03/18 19:37 11/03/18 19:38 Temperature Temperature Source Sepsis New/Unexplained Change in Mental Status Sepsis Action Taken by Nursing Pulse Rate 70 71 68 Pulse Rate [Apical] Pulse Rhythm [Apical] Pulse Strength [Apical] Respiratory Rate 22 21 15 Respiratory Effort / Characteristics Respiratory Depth Respiratory Pattern Blood Pressure 77/46 L 87/55 L 90/58 L Blood Pressure [Right Arm] Blood Pressure Mean 56 65 68 Blood Pressure Mean [Right Arm] Blood Pressure Position Pulse Oximetry 100 98 99 Oxygen Delivery Method Oxygen Flow Rate 11/03/18 19:40 11/03/18 19:46 11/03/18 20:12 Temperature Temperature Source Sepsis New/Unexplained Change in Mental Status Sepsis Action Taken by Nursing Pulse Rate 73 71 77 Pulse Rate [Apical] Pulse Rhythm [Apical] Pulse Strength [Apical] Respiratory Rate 15 18 14 Respiratory Effort / Characteristics Respiratory Depth Respiratory Pattern Blood Pressure 84/57 L 104/53 L 102/65 Blood Pressure [Right Arm] Blood Pressure Mean 66 70 77 Blood Pressure Mean [Right Arm] Blood Pressure Position Pulse Oximetry 96 99 Oxygen Delivery Method Room Air Oxygen Flow Rate 11/03/18 20:16 11/03/18 20:30 11/03/18 20:31 Temperature Temperature Source Sepsis New/Unexplained Change in Mental Status Sepsis Action Taken by Nursing Pulse Rate 77 82 79 Pulse Rate [Apical] Pulse Rhythm [Apical] Pulse Strength [Apical] Respiratory Rate 13 20 18 Respiratory Effort / Characteristics Respiratory Depth Respiratory Pattern Blood Pressure 113/68 126/64 Blood Pressure [Right Arm] Blood Pressure Mean 83 84 Blood Pressure Mean [Right Arm] Blood Pressure Position Pulse Oximetry 100 100 100 Oxygen Delivery Method Oxygen Flow Rate 11/03/18 20:46 11/03/18 20:52 11/03/18 21:01 Temperature Temperature Source Sepsis New/Unexplained Change in Mental Status Sepsis Action Taken by Nursing Pulse Rate 79 81 81 Pulse Rate [Apical] Pulse Rhythm [Apical] Pulse Strength [Apical] Respiratory Rate 21 18 20 Respiratory Effort / Characteristics Respiratory Depth Respiratory Pattern Blood Pressure 116/72 101/57 L 102/60 Blood Pressure [Right Arm] Blood Pressure Mean 86 71 74 Blood Pressure Mean [Right Arm] Blood Pressure Position Pulse Oximetry 96 100 99 Oxygen Delivery Method Oxygen Flow Rate 11/03/18 21:10 11/03/18 21:20 11/03/18 21:31 Temperature Temperature Source Sepsis New/Unexplained Change in Mental Status Sepsis Action Taken by Nursing Pulse Rate 82 80 78 Pulse Rate [Apical] Pulse Rhythm [Apical] Pulse Strength [Apical] Respiratory Rate 10 L 18 14 Respiratory Effort / Characteristics Respiratory Depth Respiratory Pattern Blood Pressure 94/58 L Blood Pressure [Right Arm] Blood Pressure Mean Blood Pressure Mean [Right Arm] Blood Pressure Position Pulse Oximetry 100 100 99 Oxygen Delivery Method Nasal Cannula Oxygen Flow Rate 2 11/03/18 22:14 11/03/18 22:26 11/03/18 22:29 Temperature 36.5 C Temperature Source Oral Sepsis New/Unexplained Change in Mental Status Sepsis Action Taken by Nursing Pulse Rate 75 Pulse Rate [Apical] 77 Pulse Rhythm [Apical] Regular Pulse Strength [Apical] Normal Respiratory Rate 14 14 Respiratory Effort / Characteristics Spontaneous Non-Labored Spontaneous Non-Labored Spontaneous Respiratory Depth Shallow Normal Normal Respiratory Pattern Regular Regular Regular Blood Pressure Blood Pressure [Right Arm] 89/58 L Blood Pressure Mean Blood Pressure Mean [Right Arm] 68 Blood Pressure Position Pulse Oximetry 95 95 Oxygen Delivery Method Nasal Cannula Room Air BiPAP Oxygen Flow Rate 2 GENERAL: He appears distressed, difficult to arouse, responding only to noxious stimuli. HENT: Exam performed. Head: Normocephalic and atraumatic. EYES: Conjunctivae and EOM are normal. Pupils are 2 mm round, and reactive to light. CV: Normal rate, regular rhythm, normal heart sounds and intact distal pulses. There is no peripheral edema. Palpable radial pulses bue. PULM/CHEST: Rhonchi bilaterally. ABD: The abdomen is soft. Bowel sounds are normal. He has no distension. No mass is present. There is no tenderness. There is no rebound, no guarding, no Soto's sign and no tenderness at McBurney's point. Rovsig negative. Ecchymosis over anterior abdomen consistent with injection site where injections would be given for Insulin or Lovenox. NEURO: Somnolent. GCS eye subscore is 2. GCS verbal subscore is 3. GCS motor subscore is 5. Course 1926: Past medical records reviewed. The patient was evaluated in room B4B, and a complete history and physical examination were performed. Patient was found to be hypotensive. He was somnolent. Accu-Chek was within normal limits. Fluid resuscitation was merely began and 2 large-bore IVs were established. 6: The patient was given 0.4 mg Narcan and vital signs improved. 1937: 2mg Narcan IV given. The patient is now more awake and his blood pressure has improved. He is able to say his name and admitted that he did not take any excess Oxycodone but did state he took Valium. He denies any trauma or LOC. 1950: Patients blood pressure is 104/63 and he is more alert and oriented after 2 mg Narcan bolus. 2001: Upon reevaluation, the patient is more alert and answering questions at this time. He states that he had a few beers and does admit to taking narcotic medications as well as Valium. 2050: Vital signs stable. The patient is much more alert and does not remember what happened. Imaging is within normal limits. Labs show elevated creatinine levels - more than double the patients baseline. The patient will be admitted to hospitalist service. I reviewed the patient's case with Dr. Chai Traore hospitalist. He will evaluate the patient for further management and recommends that the patient be admitted to the ICU. Administered Medications Heparin Sodium (Porcine) (Heparin Sodium (Porcine)) 5,000 units SQ Q8H FRANCESCA Stop: 12/03/18 21:59 Last Admin: 11/03/18 23:33 Dose: 5,000 units Sodium Chloride (Nss 1000ml) 1,000 mls @ 125 mls/hr IV .Q8H FRANCESCA Stop: 12/03/18 21:57 Last Admin: 11/03/18 22:23 Dose: 125 mls/hr Sodium Chloride (Nss 1000ml) 1,000 mls @ 999 mls/hr IV .Q1H1M ONE Stop: 11/04/18 00:18 Last Admin: 11/03/18 23:33 Dose: 999 mls/hr Insulin Aspart (Novolog Flexpen) 0 units SC Q6 FRANCESCA Stop: 12/04/18 00:00 Last Admin: 11/03/18 23:40 Dose: 1 units Discontinued Medications Sodium Chloride (Nss 1000ml) 2,000 mls @ 999 mls/hr IV .Q2H1M ONE Stop: 11/03/18 21:40 Last Infusion: 11/03/18 21:52 Dose: Admin: 11/03/18 19:51 Dose: 999 mls/hr Naloxone HCl (Narcan) Confirm Administered Dose 0.4 mg .ROUTE .STK-MED ONE Stop: 11/03/18 19:33 Last Admin: 11/03/18 19:33 Dose: 0.4 mg Naloxone HCl (Narcan) 0.4 mg IV NOW STA Stop: 11/03/18 19:40 Last Admin: 11/03/18 19:52 Dose: Not Given Naloxone HCl (Narcan) 2 mg IV NOW STA Stop: 11/03/18 19:40 Last Admin: 11/03/18 19:56 Dose: 2 mg Medical Decision Making Medical Records Attestation: I reviewed the patient's medical records. Home Medications Current Medication List: was personally reviewed by me Laboratory Data Attestation: I reviewed the patient's lab results. Result diagrams: 11/03/18 19:00 11/03/18 19:00 Lab Results 11/03/18 11/03/18 11/03/18 Range/Units 19:00 19:00 19:00 WBC 7.67 (4.8-10.8) K/uL RBC 4.93 (4.7-6.1) M/uL Hgb 12.9 L (14.0-18.0) g/dL Hct 40.0 L (42-52) % MCV 81.1 (80-100) fL MCH 26.2 (25-34) pg MCHC 32.3 (32-36) g/dL RDW Std Deviation 47.9 H (36.4-46.3) fL RDW Coeff of Kiki 16.1 H (11.5-14.5) % Plt Count 287 (130-400) K/uL MPV 11.2 H (7.4-10.4) fL Immature Gran % (Auto) 0.7 % Neut % (Auto) 60.4 % Lymph % (Auto) 27.4 % [place] % (Auto) 9.0 % Eos % (Auto) 2.2 % Baso % (Auto) 0.3 % Immature Gran # (Auto) 0.05 H (0.00-0.02) K/uL Neut # (Auto) 4.64 (1.4-6.5) K/uL Lymph # (Auto) 2.10 (1.2-3.4) K/uL [place] # (Auto) 0.69 H (0.11-0.59) K/uL Eos # (Auto) 0.17 (0-0.5) K/uL Baso # (Auto) 0.02 (0-0.2) K/uL PT 10.6 (9.0-12.0) Seconds INR 1.1 (0.9-1.1) APTT 26.9 (21.0-31.0) Seconds PTT Ratio 1.0 Sample Site POC pH (7.35-7.45) POC pCO2 (35-46) mmHg POC pO2 (80-95) mmHg POC HCO3 (19-24) oliverio/L POC Total CO2 (24-31) mEq/l POC Base Excess (-9-1.8) oliverio/L POC ABG O2 Sat (90-95) % Conrado Test VBG pH (7.36-7.41) VBG pCO2 (38-50) mmHg VBG pO2 mmHg VBG HCO3 mmol/L VBG O2 Saturation % VBG Base Excess mEq/L Barometric Pressure mm/Hg O2 Delivery Device POC O2 Rate POC FiO2 % IPAP Sodium 134 L (136-145) mmol/L Potassium 4.9 (3.5-5.1) mmol/L Chloride 101 (98-107) mmol/L Carbon Dioxide 24 (21-32) mmol/L Anion Gap 9.0 (3-11) BUN 32 H (7-18) mg/dl Creatinine 2.75 H (0.6-1.4) mg/dl Est Cr Clr Drug Dosing 34.9 ml/min Est GFR ( Amer) 28.4 Est GFR (Non-Af Amer) 24.5 BUN/Creatinine Ratio 11.6 (10-20) Glucose 127 H (70-99) mg/dl POC Glucose (70-99) Lactate (0.4-2.0) mmol/L Calcium 9.4 (8.5-10.1) mg/dl Ammonia (11-32) umol/L Troponin I < 0.015 (0-0.045) ng/ml Urine Color Urine Appearance (Clear) Urine pH (4.5-7.5) Ur Specific [place] (1.000-1.030) Urine Protein (Negative) Urine Glucose (UA) (Negative) Urine Ketones (Negative) Urine Blood (Negative) Urine Nitrite (Negative) Urine Bilirubin (Negative) Urine Urobilinogen (Negative) Ur Leukocyte Esterase (Negative) Urine WBC (Auto) (0-5) /hpf Urine RBC (Auto) (0-4) /hpf U Hyaline Cast (Auto) (0-5) /lpf U Epithel Cells (Auto) (0-5) /lpf Urine Bacteria (Auto) (Negative) Amorphous Sediment (None Prsent) Nasal Screen MRSA (PCR) (Negative) Urine Opiates Screen (Neg) Ur Methadone, Qual (Neg) Urine Barbiturates (Neg) Ur Phencyclidine (PCP) (Neg) U Amphetamin/Meth Scrn (Neg) MDMA (Ecstasy) Screen (Neg) U Benzodiazepines Scrn (Neg) Ur Cocaine Metabolite (Neg) U Marijuana (THC) Screen (Neg) Ethyl Alcohol mg/dL (0-3) mg/dl 11/03/18 11/03/18 11/03/18 Range/Units 19:24 19:25 19:48 WBC (4.8-10.8) K/uL RBC (4.7-6.1) M/uL Hgb (14.0-18.0) g/dL Hct (42-52) % MCV (80-100) fL MCH (25-34) pg MCHC (32-36) g/dL RDW Std Deviation (36.4-46.3) fL RDW Coeff of Kiki (11.5-14.5) % Plt Count (130-400) K/uL MPV (7.4-10.4) fL Immature Gran % (Auto) % Neut % (Auto) % Lymph % (Auto) % [place] % (Auto) % Eos % (Auto) % Baso % (Auto) % Immature Gran # (Auto) (0.00-0.02) K/uL Neut # (Auto) (1.4-6.5) K/uL Lymph # (Auto) (1.2-3.4) K/uL [place] # (Auto) (0.11-0.59) K/uL Eos # (Auto) (0-0.5) K/uL Baso # (Auto) (0-0.2) K/uL PT (9.0-12.0) Seconds INR (0.9-1.1) APTT (21.0-31.0) Seconds PTT Ratio Sample Site POC pH (7.35-7.45) POC pCO2 (35-46) mmHg POC pO2 (80-95) mmHg POC HCO3 (19-24) oliverio/L POC Total CO2 (24-31) mEq/l POC Base Excess (-9-1.8) oliverio/L POC ABG O2 Sat (90-95) % Conrado Test VBG pH (7.36-7.41) VBG pCO2 (38-50) mmHg VBG pO2 mmHg VBG HCO3 mmol/L VBG O2 Saturation % VBG Base Excess mEq/L Barometric Pressure mm/Hg O2 Delivery Device POC O2 Rate POC FiO2 % IPAP Sodium (136-145) mmol/L Potassium (3.5-5.1) mmol/L Chloride (98-107) mmol/L Carbon Dioxide (21-32) mmol/L Anion Gap (3-11) BUN (7-18) mg/dl Creatinine (0.6-1.4) mg/dl Est Cr Clr Drug Dosing ml/min Est GFR ( Amer) Est GFR (Non-Af Amer) BUN/Creatinine Ratio (10-20) Glucose (70-99) mg/dl POC Glucose 211 H 130 H (70-99) Lactate (0.4-2.0) mmol/L Calcium (8.5-10.1) mg/dl Ammonia (11-32) umol/L Troponin I (0-0.045) ng/ml Urine Color Urine Appearance (Clear) Urine pH (4.5-7.5) Ur Specific [place] (1.000-1.030) Urine Protein (Negative) Urine Glucose (UA) (Negative) Urine Ketones (Negative) Urine Blood (Negative) Urine Nitrite (Negative) Urine Bilirubin (Negative) Urine Urobilinogen (Negative) Ur Leukocyte Esterase (Negative) Urine WBC (Auto) (0-5) /hpf Urine RBC (Auto) (0-4) /hpf U Hyaline Cast (Auto) (0-5) /lpf U Epithel Cells (Auto) (0-5) /lpf Urine Bacteria (Auto) (Negative) Amorphous Sediment (None Prsent) Nasal Screen MRSA (PCR) (Negative) Urine Opiates Screen Pos H (Neg) Ur Methadone, Qual Neg (Neg) Urine Barbiturates Neg (Neg) Ur Phencyclidine (PCP) Neg (Neg) U Amphetamin/Meth Scrn Pos H (Neg) MDMA (Ecstasy) Screen Neg (Neg) U Benzodiazepines Scrn Pos H (Neg) Ur Cocaine Metabolite Neg (Neg) U Marijuana (THC) Screen Neg (Neg) Ethyl Alcohol mg/dL (0-3) mg/dl 11/03/18 11/03/18 11/03/18 Range/Units 19:48 19:52 19:52 WBC (4.8-10.8) K/uL RBC (4.7-6.1) M/uL Hgb (14.0-18.0) g/dL Hct (42-52) % MCV (80-100) fL MCH (25-34) pg MCHC (32-36) g/dL RDW Std Deviation (36.4-46.3) fL RDW Coeff of Kiki (11.5-14.5) % Plt Count (130-400) K/uL MPV (7.4-10.4) fL Immature Gran % (Auto) % Neut % (Auto) % Lymph % (Auto) % [place] % (Auto) % Eos % (Auto) % Baso % (Auto) % Immature Gran # (Auto) (0.00-0.02) K/uL Neut # (Auto) (1.4-6.5) K/uL Lymph # (Auto) (1.2-3.4) K/uL [place] # (Auto) (0.11-0.59) K/uL Eos # (Auto) (0-0.5) K/uL Baso # (Auto) (0-0.2) K/uL PT (9.0-12.0) Seconds INR (0.9-1.1) APTT (21.0-31.0) Seconds PTT Ratio Sample Site POC pH (7.35-7.45) POC pCO2 (35-46) mmHg POC pO2 (80-95) mmHg POC HCO3 (19-24) oliverio/L POC Total CO2 (24-31) mEq/l POC Base Excess (-9-1.8) oliverio/L POC ABG O2 Sat (90-95) % Conrado Test VBG pH (7.36-7.41) VBG pCO2 (38-50) mmHg VBG pO2 mmHg VBG HCO3 mmol/L VBG O2 Saturation % VBG Base Excess mEq/L Barometric Pressure mm/Hg O2 Delivery Device POC O2 Rate POC FiO2 % IPAP Sodium (136-145) mmol/L Potassium (3.5-5.1) mmol/L Chloride (98-107) mmol/L Carbon Dioxide (21-32) mmol/L Anion Gap (3-11) BUN (7-18) mg/dl Creatinine (0.6-1.4) mg/dl Est Cr Clr Drug Dosing ml/min Est GFR ( Amer) Est GFR (Non-Af Amer) BUN/Creatinine Ratio (10-20) Glucose (70-99) mg/dl POC Glucose (70-99) Lactate 1.6 (0.4-2.0) mmol/L Calcium (8.5-10.1) mg/dl Ammonia 15.1 (11-32) umol/L Troponin I (0-0.045) ng/ml Urine Color Dark Yellow Urine Appearance Cloudy H (Clear) Urine pH 5.0 (4.5-7.5) Ur Specific [place] 1.028 (1.000-1.030) Urine Protein Negative (Negative) Urine Glucose (UA) Negative (Negative) Urine Ketones Trace H (Negative) Urine Blood Negative (Negative) Urine Nitrite Negative (Negative) Urine Bilirubin Negative (Negative) Urine Urobilinogen Negative (Negative) Ur Leukocyte Esterase Negative (Negative) Urine WBC (Auto) 0 (0-5) /hpf Urine RBC (Auto) 0-4 (0-4) /hpf U Hyaline Cast (Auto) 1-5 (0-5) /lpf U Epithel Cells (Auto) 0-5 (0-5) /lpf Urine Bacteria (Auto) Negative (Negative) Amorphous Sediment Present H (None Prsent) Nasal Screen MRSA (PCR) (Negative) Urine Opiates Screen (Neg) Ur Methadone, Qual (Neg) Urine Barbiturates (Neg) Ur Phencyclidine (PCP) (Neg) U Amphetamin/Meth Scrn (Neg) MDMA (Ecstasy) Screen (Neg) U Benzodiazepines Scrn (Neg) Ur Cocaine Metabolite (Neg) U Marijuana (THC) Screen (Neg) Ethyl Alcohol mg/dL (0-3) mg/dl 11/03/18 11/03/18 11/03/18 Range/Units 19:52 19:52 21:45 WBC (4.8-10.8) K/uL RBC (4.7-6.1) M/uL Hgb (14.0-18.0) g/dL Hct (42-52) % MCV (80-100) fL MCH (25-34) pg MCHC (32-36) g/dL RDW Std Deviation (36.4-46.3) fL RDW Coeff of Kiki (11.5-14.5) % Plt Count (130-400) K/uL MPV (7.4-10.4) fL Immature Gran % (Auto) % Neut % (Auto) % Lymph % (Auto) % [place] % (Auto) % Eos % (Auto) % Baso % (Auto) % Immature Gran # (Auto) (0.00-0.02) K/uL Neut # (Auto) (1.4-6.5) K/uL Lymph # (Auto) (1.2-3.4) K/uL [place] # (Auto) (0.11-0.59) K/uL Eos # (Auto) (0-0.5) K/uL Baso # (Auto) (0-0.2) K/uL PT (9.0-12.0) Seconds INR (0.9-1.1) APTT (21.0-31.0) Seconds PTT Ratio Sample Site POC pH (7.35-7.45) POC pCO2 (35-46) mmHg POC pO2 (80-95) mmHg POC HCO3 (19-24) oliverio/L POC Total CO2 (24-31) mEq/l POC Base Excess (-9-1.8) oliverio/L POC ABG O2 Sat (90-95) % Conrado Test VBG pH 7.30 L (7.36-7.41) VBG pCO2 51 H (38-50) mmHg VBG pO2 26 mmHg VBG HCO3 25 mmol/L VBG O2 Saturation < 60.0 % VBG Base Excess -2.1 mEq/L Barometric Pressure 725.5 mm/Hg O2 Delivery Device POC O2 Rate POC FiO2 % IPAP Sodium (136-145) mmol/L Potassium (3.5-5.1) mmol/L Chloride (98-107) mmol/L Carbon Dioxide (21-32) mmol/L Anion Gap (3-11) BUN (7-18) mg/dl Creatinine (0.6-1.4) mg/dl Est Cr Clr Drug Dosing ml/min Est GFR ( Amer) Est GFR (Non-Af Amer) BUN/Creatinine Ratio (10-20) Glucose (70-99) mg/dl POC Glucose (70-99) Lactate (0.4-2.0) mmol/L Calcium (8.5-10.1) mg/dl Ammonia (11-32) umol/L Troponin I (0-0.045) ng/ml Urine Color Urine Appearance (Clear) Urine pH (4.5-7.5) Ur Specific [place] (1.000-1.030) Urine Protein (Negative) Urine Glucose (UA) (Negative) Urine Ketones (Negative) Urine Blood (Negative) Urine Nitrite (Negative) Urine Bilirubin (Negative) Urine Urobilinogen (Negative) Ur Leukocyte Esterase (Negative) Urine WBC (Auto) (0-5) /hpf Urine RBC (Auto) (0-4) /hpf U Hyaline Cast (Auto) (0-5) /lpf U Epithel Cells (Auto) (0-5) /lpf Urine Bacteria (Auto) (Negative) Amorphous Sediment (None Prsent) Nasal Screen MRSA (PCR) Negative (Negative) Urine Opiates Screen (Neg) Ur Methadone, Qual (Neg) Urine Barbiturates (Neg) Ur Phencyclidine (PCP) (Neg) U Amphetamin/Meth Scrn (Neg) MDMA (Ecstasy) Screen (Neg) U Benzodiazepines Scrn (Neg) Ur Cocaine Metabolite (Neg) U Marijuana (THC) Screen (Neg) Ethyl Alcohol mg/dL < 3.0 (0-3) mg/dl 11/03/18 Range/Units 22:42 WBC (4.8-10.8) K/uL RBC (4.7-6.1) M/uL Hgb (14.0-18.0) g/dL Hct (42-52) % MCV (80-100) fL MCH (25-34) pg MCHC (32-36) g/dL RDW Std Deviation (36.4-46.3) fL RDW Coeff of Kiki (11.5-14.5) % Plt Count (130-400) K/uL MPV (7.4-10.4) fL Immature Gran % (Auto) % Neut % (Auto) % Lymph % (Auto) % [place] % (Auto) % Eos % (Auto) % Baso % (Auto) % Immature Gran # (Auto) (0.00-0.02) K/uL Neut # (Auto) (1.4-6.5) K/uL Lymph # (Auto) (1.2-3.4) K/uL [place] # (Auto) (0.11-0.59) K/uL Eos # (Auto) (0-0.5) K/uL Baso # (Auto) (0-0.2) K/uL PT (9.0-12.0) Seconds INR (0.9-1.1) APTT (21.0-31.0) Seconds PTT Ratio Sample Site R Radial POC pH 7.32 L (7.35-7.45) POC pCO2 42 (35-46) mmHg POC pO2 77 L (80-95) mmHg POC HCO3 22 (19-24) oliverio/L POC Total CO2 23 L (24-31) mEq/l POC Base Excess -4.0 (-9-1.8) oliverio/L POC ABG O2 Sat 94.0 (90-95) % [place] Test Pass VBG pH (7.36-7.41) VBG pCO2 (38-50) mmHg VBG pO2 mmHg VBG HCO3 mmol/L VBG O2 Saturation % VBG Base Excess mEq/L Barometric Pressure mm/Hg O2 Delivery Device BIPAP POC O2 Rate 12 POC FiO2 21 % IPAP 18 Sodium (136-145) mmol/L Potassium (3.5-5.1) mmol/L Chloride (98-107) mmol/L Carbon Dioxide (21-32) mmol/L Anion Gap (3-11) BUN (7-18) mg/dl Creatinine (0.6-1.4) mg/dl Est Cr Clr Drug Dosing ml/min Est GFR ( Amer) Est GFR (Non-Af Amer) BUN/Creatinine Ratio (10-20) Glucose (70-99) mg/dl POC Glucose (70-99) Lactate (0.4-2.0) mmol/L Calcium (8.5-10.1) mg/dl Ammonia (11-32) umol/L Troponin I (0-0.045) ng/ml Urine Color Urine Appearance (Clear) Urine pH (4.5-7.5) Ur Specific [place] (1.000-1.030) Urine Protein (Negative) Urine Glucose (UA) (Negative) Urine Ketones (Negative) Urine Blood (Negative) Urine Nitrite (Negative) Urine Bilirubin (Negative) Urine Urobilinogen (Negative) Ur Leukocyte Esterase (Negative) Urine WBC (Auto) (0-5) /hpf Urine RBC (Auto) (0-4) /hpf U Hyaline Cast (Auto) (0-5) /lpf U Epithel Cells (Auto) (0-5) /lpf Urine Bacteria (Auto) (Negative) Amorphous Sediment (None Prsent) Nasal Screen MRSA (PCR) (Negative) Urine Opiates Screen (Neg) Ur Methadone, Qual (Neg) Urine Barbiturates (Neg) Ur Phencyclidine (PCP) (Neg) U Amphetamin/Meth Scrn (Neg) MDMA (Ecstasy) Screen (Neg) U Benzodiazepines Scrn (Neg) Ur Cocaine Metabolite (Neg) U Marijuana (THC) Screen (Neg) Ethyl Alcohol mg/dL (0-3) mg/dl Imaging Data Radiologist's Impression: Radiology results as stated below per my review and the radiologist's interpretation: CT SCAN OF THE BRAIN WITHOUT IV CONTRAST CLINICAL HISTORY: Change in mental status. COMPARISON STUDY: CT of the brain dated 07/03/2016. TECHNIQUE: Unenhanced axial CT scan of the brain is performed from the vertex to the skull base. A dose lowering technique was utilized adhering to the principles of ALARA. Examination is modestly degraded by motion artifact. CT DOSE: 1311.06 mGy.cm FINDINGS: Brain parenchyma: The brain parenchyma is normal in appearance. There is no hemorrhage, mass effect, or evidence of acute territorial ischemia by CT criteria. Bo-white matter differentiation is preserved. No extra-axial fluid collection is seen. Ventricles, sulci, cisterns: Normal in configuration. Intracranial vasculature: There is atherosclerotic calcification of the cavernous carotid and vertebral arteries. Calvarium: Unremarkable. Sinuses and mastoids: The visualized paranasal sinuses are clear. The mastoid air cells are well pneumatized. Orbits: The bony orbits are grossly intact. Mild proptosis is suggested. IMPRESSION: There is no hemorrhage, mass effect, or evidence of acute territorial ischemia by CT criteria. Electronically signed by: Rommel Rodríguez M.D. 11/03/2018 8:11 PM SINGLE VIEW CHEST CLINICAL HISTORY: Change in mental status. FINDINGS: An AP, portable, upright chest radiograph is compared to study dated . The examination is degraded by portable technique and patient rotation. The heart is enlarged. The pulmonary vasculature is noncongested. Chronic interstitial thickening and elevation of the right hemidiaphragm are similar to previous. There is bibasilar atelectasis. No airspace consolidation or large pleural effusion is identified. No pneumothorax is seen. The skeletal structures are osteopenic. The bony thorax is grossly intact. IMPRESSION: Cardiomegaly with no acute cardiopulmonary abnormality. Electronically signed by: Rommel Rodríguez M.D. 11/03/2018 8:07 PM ECG Data Attestation: I personally reviewed and interpreted this ECG as follows: Indication: altered mental status Rate (beats per minute): 71 Rhythm: sinus rhythm Findings: + other (FL QRS QTC segments within normal limits. ); no ST depression and no ST elevation Blood Pressure Blood Pressure Findings: Normal blood pressure Blood Pressure Disposition: further management by hospitalist MICHAEL Narrative 1925: Past medical records reviewed. The patient was evaluated in room B4B, and a complete history and physical examination were performed. Patient was found to be hypotensive. He was somnolent. Accu-Chek was within normal limits. Fluid resuscitation was merely began and 2 large-bore IVs were established. 1935: The patient was given 0.4 mg Narcan and vital signs improved. 1937: 2mg Narcan IV given. The patient is now more awake and his blood pressure has improved. He is able to say his name and admitted that he did not take any excess Oxycodone but did state he took Valium. He denies any trauma or LOC. 1950: Patients blood pressure is 104/63 and he is more alert and oriented after 2 mg Narcan bolus. 2001: Upon reevaluation, the patient is more alert and answering questions at this time. He states that he had a few beers and does admit to taking narcotic medications as well as Valium. 2050: Vital signs stable. The patient is much more alert and does not remember what happened. Imaging is within normal limits. Labs show elevated creatinine levels - more than double the patients baseline. The patient will be admitted to hospitalist service. I reviewed the patient's case with Dr. Chai Traore hospitalist. He will evaluate the patient for further management and recommends that the patient be admitted to the ICU. Impression & Plan Polysubstance abuse, RUDY (acute kidney injury) Critical Care Time I have personally spent greater than 45 minutes of critical care time in the direct management of this patient. This includes bedside care, interpretation of diagnostic studies, and testing, discussion with consultants, patient, and family members, and other required patient management activities. This 45 minutes is in excess of all separately billable procedures. Critical Care Time: Yes Total Critical Care Time: 45 Discharge Plan Visit Data *Final* Discharge Date/Time: 11/03/18 21:31 Chief Complaint: Unresponsive Stated Complaint: ALOC, LETHARGIC ED Provider: Mark Anthony Kahn Discharge Problem: Polysubstance abuse, RUDY (acute kidney injury) Patient Disposition: Admitted As Inpatient Discharge Instructions Interventions: ED Discharge Assessment Last Done: 11/03/18 21:31 The scribe's documentation has been prepared under my direction and personally reviewed by me in its entirety. I confirm that the note above accurately reflects all work, treatment, procedures, and medical decision making performed by me.
[2018-11-04 01:36] LABS: Magnesium 2.1 mg/dl (1.8-2.4)
[2018-11-04] MEDS ORDERED: INFLUENZA ADMINISTRATION CHARGE ONE (04:00)
[2018-11-04] MEDS ORDERED: INFLUENZA VIRUS QUAD VACCINE 0.5 ML SYR IM ONE (04:00)
[2018-11-04] MEDS ORDERED: PNEUMOCOCCAL ADMINISTRATION CHARGE ONE (04:15)
[2018-11-04] MEDS ORDERED: PNEUMOCOCCAL POLYSACCHARIDES 25 MCG/0.5 ML VIAL/SYR IM ONE (04:15)
[2018-11-04 04:53] LABS: Hemoglobin 10.3 g/dL (14.0-18.0); Mean Corpuscular Hgb Conc 31.2 g/dL (32-36); Mean Corpuscular Volume 82.3 fL (80-100); Mean Platelet Volume 9.9 fL (7.4-10.4); Platelet Count 177 K/uL (130-400); RDW Coefficient of Variation 16.2 % (11.5-14.5); RDW Standard Deviation 49.4 fL (36.4-46.3); Red Blood Count 4.01 M/uL (4.7-6.1); White Blood Count 5.27 K/uL (4.8-10.8)
[2018-11-04 05:28] LABS: BUN Creatinine Ratio 16.3 (10-20); Calcium 7.9 mg/dl (8.5-10.1); Est GFR (African American) 53.4; Est GFR (Non-African American) 46.1; Potassium 4.6 mmol/L (3.5-5.1)
[2018-11-04] MEDS: HEPARIN SOD 5,000 UNIT/0.5 ML VIAL SQ SCH (06:09)
[2018-11-04] MEDS: SODIUM CHLORIDE 0.9% 1000ML 1,000 ML IV SCH (06:09)
[2018-11-04] MEDS: INSULIN ASPART 100 UNITS/ML 3 ML PEN SC SCH ×2 (06:20→11:32)
[2018-11-04] MEDS ORDERED: ASPIRIN 81 MG ECTAB PO SCH (09:00)
[2018-11-04] MEDS ORDERED: MULTIVITAMIN TAB PO SCH (09:00)
[2018-11-04] MEDS ORDERED: cephALEXin 500 MG CAP PO SCH (09:00)
[2018-11-04] MEDS ORDERED: FLUOXETINE HCL 20 MG CAP PO SCH (09:00)
[2018-11-04] MEDS ORDERED: CALCIUM 600MG + VIT D 400 IU TAB PO SCH (09:00)
[2018-11-04] MEDS ORDERED: ROSUVASTATIN CALCIUM 20 MG TAB PO SCH (09:00)
[2018-11-04] MEDS ORDERED: DOCUSATE SODIUM 100 MG CAP PO SCH (09:00)
[2018-11-04] MEDS ORDERED: AMMONIUM LACTATE 12% LOTION 225 GM BTL EXT PRN (11:57)
[2018-11-04] MEDS ORDERED: OXYCODONE HCL IR 5 MG TAB (IMMEDIATE RELEASE) PO PRN (11:58)
[2018-11-04] MEDS ORDERED: GABAPENTIN 400 MG CAP PO SCH (12:00)
[2018-11-04] MEDS ORDERED: OXYCODONE HCL 20 MG TABCR (OXYCONTIN) PO SCH (12:00)
--- NOTE | 2018-11-04 18:22 | Critical Care Consultation ---
Date of Consultation November 04, 2018 Assessment & Plan (1) History of septic arthritis: Impression: 1. Acute respiratory failure with respiratory acidosis secondary to multiple medications that could alter mental status including Valium, baclofen in addition to alcohol drinking. 2. Obstructive sleep apnea on CPAP. 3. Diabetes type 2, patient claims he is compliant with medications. 4. The patient appears to be hypermanic, he does have history of ADHD, and he has been also on dexamphetamine. 5. History of septic joints in the past. Plan: 1. Continue to hydrate the patient. 2. Start oral intake. 3. Glucose control. 4. DVT and GI prophylaxis. 5. The patient insists that his medications has to be on time specifically for every single medication. 6. He was asking to start back again on his medications from home which includes medications that serve as a muscle relaxant. 7. The patient has been drinking alcohol with these medications that could alter his mental status and cough reflex. 8. The patient was advised to stay in the hospital until he is being cared for , however he insists he would like to sign AGAINST MEDICAL ADVICE. He took the responsibility for his decision. The patient was escorted to the main door upon his request. Discussed with the patient in details, with the staff, critical care time spent with the patient was 35 minutes. History of Present Illness Reason for Consultation: Drug overdose. Requesting Physician: Dr. Kwan. Attending Physician: Lennie Kwan, History of Present Illness Dear Dr. Kwan: Thank you for your kind referral of Mr. Pelaez to critical care service. This is a 57-year-old gentleman with history of diabetes, ADHD, chronic kidney insufficiency, obstructive sleep apnea, septic arthritis, chronic back pain, who was at the bar drinking alcohol and he took his medications which include Flexeril and Valium at night patient also takes baclofen 60 mg at night as well. The patient apparently passed out however he denies it, he was brought by the ambulance to the hospital and underwent a workup in the ED which revealed positive amphetamine in the urine. He takes dexamphetamine at home for ADD. The patient when I interviewed him, he denies any symptoms, he does have soreness all over but this is his norm, he denies any chest pain per se, no nausea or vomiting, no change in bowel movements or urine habits. He seems to be somewhat manic about his medications and and his answering questions. He specified that he wants to take his medications on a timely manner. He insists on taking his multiple psychiatric medications as well as narcotics and muscle relaxants on time. The patient was fully awake and following commands. He denies any history of DKA in the past, his hemoglobin A1c according to him was approximately 6 which has been controlled compared to previous. His review of systems apart from the above was unremarkable, no joint pain reported, he does have swelling in his lower extremities, no dizziness and denies any syncopal episode, no blurry vision, no constitutional symptoms or fever. 14 systems has been reviewed and all are unremarkable. Family history does not contribute to his current illness, and his past medical history as mentioned above. The patient is non-smoker lifetime and he does not have secondhand exposure to smoking. Allergies Allergy/AdvReac Type Severity Reaction Status Date / Time simvastatin Allergy Unknown MUSCLE Verified 06/04/18 16:46 WEAKNESS,TINGLING Home Medications Home Medications Medication Instructions Recorded Confirmed Type acetaminophen [Tylenol Extra 500 mg PO Q6H PRN 11/03/18 11/03/18 History Strength] amitriptyline 25 mg PO HS 11/03/18 11/03/18 History amlodipine 10 mg PO DAILY 11/03/18 11/03/18 History ammonium lactate 1 applic TOPICAL BID PRN 11/03/18 11/03/18 History aspirin [Aspir-Low] 81 mg PO DAILY 11/03/18 11/03/18 History baclofen 60 mg PO HS 11/03/18 11/03/18 History calcium carbonate-vitamin D3 1 tab PO DAILY 11/03/18 11/03/18 History [Calcium 600 with Vitamin D3] cephalexin 500 mg PO BID 11/03/18 11/03/18 History dextroamphetamine 5 mg PO DAILY PRN 11/03/18 11/03/18 History dextroamphetamine-amphetamine 30 mg PO QAM 11/03/18 11/03/18 History diazepam 2.5 - 5 mg PO HS 11/03/18 11/03/18 History docusate sodium [DOK] 100 mg PO BID 11/03/18 11/03/18 History fexofenadine [Carmen Allergy] 180 mg PO DAILY 11/03/18 11/03/18 History fluoxetine 60 mg PO DAILY 11/03/18 11/03/18 History fluticasone [Flonase Allergy 2 spray INTRANASAL DAILY 11/03/18 11/03/18 History Relief] gabapentin 400 mg PO TIDM 11/03/18 11/03/18 History guaifenesin [Mucinex] 600 mg PO Q12H PRN 11/03/18 11/03/18 History hydroxyzine HCl 25 - 50 mg PO Q6 PRN 11/03/18 11/03/18 History indapamide 2.5 mg PO QAM 11/03/18 11/03/18 History ipratropium bromide 2 spray INTRANASAL QID PRN 11/03/18 11/03/18 History ketoconazole 1 applic TOPICAL BID 11/03/18 11/03/18 History liraglutide [Victoza 3-Toni] 1.2 mg SUBCUT DAILY 11/03/18 11/03/18 History lisinopril 40 mg PO DAILY 11/03/18 11/03/18 History meloxicam 7.5 mg PO BID 11/03/18 11/03/18 History metaxalone 800 mg PO TID 11/03/18 11/03/18 History metformin 850 mg PO BID 11/03/18 11/03/18 History metoprolol tartrate 50 mg PO BID 11/03/18 11/03/18 History multivitamin 1 tab PO DAILY 11/03/18 11/03/18 History ondansetron HCl 4 mg PO Q6 PRN 11/03/18 11/03/18 History oxycodone 5 mg PO QID PRN 11/03/18 11/03/18 History oxycodone 20 mg PO Q12H 11/03/18 11/03/18 History pioglitazone [Actos] 30 mg PO DAILY 11/03/18 11/03/18 History rosuvastatin 20 mg PO DAILY 11/03/18 11/03/18 History Patient History Medical History History of septic arthritis (Chronic) Diverticulosis (Chronic) NARINDER on CPAP (Chronic) DM type 2 (diabetes mellitus, type 2) (Chronic) Dyslipidemia (Chronic) Raynaud disease (Chronic) Hypertension (Chronic) Chronic pain (Chronic) ADD (attention deficit disorder) (Chronic) Femur fracture (Chronic) "S/P repair" Surgical History History of carpal tunnel surgery (Chronic) H/O hand surgery (Chronic) S/P left knee arthroscopy (Chronic) Status post total knee replacement, right (Chronic) Social History Current Living Situation: Alone Other Information That Helps Us Care for You: No Feels Safe at Home: Yes Safety Concerns: Feels Safe At This Time Smoking Status: Former smoker Do You Dip or Chew Tobacco: No Second Hand Exposure: No Hx Alcohol Use: Yes Alcohol type: beer and hard liquor Alcohol Intake Frequency : 0-2 drinks per day Hx Substance Use: No Beliefs That Will Affect Care: None Preferred Language: Estonian Review of Systems As above. Physical Exam 2 Vital Signs (Past 24 Hours): Last Vital Signs Temp 36.4 C L 11/04/18 12:41 Pulse 77 11/04/18 12:41 Resp 16 11/04/18 12:41 BP 133/78 11/04/18 12:41 Pulse Ox 96 11/04/18 12:41 Physical Exam: Vital signs are stable, S1-S2 regular rate and rhythm, his blood pressure was slightly elevated at 140 systolic, heart examination S1-S2 regular rate and rhythm, distant breath sounds bilaterally, abdomen is benign, trace edema in the periphery. Neurologically he is nonfocal. Results & Data Laboratory Results His labs were reviewed which showed positive urine toxicology, the rest of his labs are acceptable except for fluctuating blood sugar. Diagnostic Findings Head CT and chest x-ray were unremarkable.
[2018-11-04] MEDS ORDERED: AMITRIPTYLINE HCL 25 MG TAB PO SCH (21:00)
[2018-11-04] MEDS ORDERED: METOPROLOL TARTRATE 50 MG TAB PO SCH (21:00)
[2018-11-04] MEDS ORDERED: BACLOFEN 20 MG TAB PO SCH (21:00)
[2018-11-05] MEDS ORDERED: INDAPAMIDE 1.25 MG TAB PO SCH (09:00)
[2018-11-05] MEDS ORDERED: FEXOFENADINE HCL 180 MG TAB PO SCH (09:00)
[2018-11-05] MEDS ORDERED: FLUTICASONE PROPIONATE NA SPR 16 GM BTL NAE SCH (09:00)
[2018-11-05] MEDS ORDERED: LISINOPRIL 40 MG TAB PO SCH (09:00)
[2018-11-05] MEDS ORDERED: AMLODIPINE BESYLATE 5 MG TAB PO SCH (09:00)
[2018-11-09 00:06] LABS: 7-Aminoclonaz, Confirm NEGATIVE NG/ML (CUTOFF=25); Amphetamine Urine, Confirm 14600 NG/ML (CUTOF=250); Hydro-Alp Ur, GC/MS NEGATIVE NG/ML (CUTOFF=25); Hydrocodone Urine NEGATIVE NG/ML (CUTOFF=50); Hydromor Urine NEGATIVE NG/ML (CUTOFF=50); Hydroxyethylflurazepam, Conf NEGATIVE NG/ML (CUTOFF=50); Hydroxytriazolam NEGATIVE NG/ML (CUTOFF=50); Lorazepam, Ur GC/MS NEGATIVE NG/ML (CUTOFF=50); Morphine Urine NEGATIVE NG/ML (CUTOFF=50); Nordiazepam, Confirm 927 NG/ML (CUTOFF=50); Norhydrocodone Conf Ur NEGATIVE NG/ML (CUTOFF=50); Noroxycodone Urine 6880 NG/ML (CUTOFF=50); Oxazepam Ur, GC/MS 1570 NG/ML (CUTOFF=50); Oxycodone Urine 6730 NG/ML (CUTOFF=50); Temazepam, Confirm 1380 NG/ML (CUTOFF=50)
--- NOTE | 2018-11-10 11:55 | Discharge Summary ---
Date of Service November 04, 2018 Admission HPI Per Admitting Provider 57-year-old male who was brought to the ED for altered mental status. There is currently no one accompanying the patient at this time. History is limited from the patient secondary to his mental status. Per ED, patient was out to dinner when he started to "act funny". Patient reports he was at the local [employer] and had a "couple of sips of beer and oxycodone". He reports that they called EMS whenever he started to act abnormal. Per chart review, patient has history of polysubstance abuse. He is currently prescribed oxycodone, OxyContin, Adderall and other sedating medications. Upon arrival to the ER, patient was hypotensive with systolics as low as the 60s. He was given 2 doses of Narcan and IV fluids with some improvement in symptoms. At the time my exam, patient remains difficult to arouse at times and back to sleep quickly during exam. Labs show a mild respiratory acidosis and also AK I with creatinine of 2.75. Admission Exam Per Admitting Provider Physical Exam Gen-Groggy, NAD, Afebrile, unkept Head-NCAT, EOMI, PERRLA, Anicteric Sclera, No Posterior Pharyngeal Erythema Neck-Supple, No JVD, No Thyromegaly, No Masses, No LAD, No Bruits Lungs-Clear to Auscultation Bilaterally, No Rales, No Rhonchi, No Wheezing, No Crepitus Chest-No S4, +S1, +S2, No S3, No Murmurs, No Rubs, No Gallops, No Ectopy Abdomen-Soft, Bowel Sounds Present, Non Tender, Non Distended, No Hepatomegaly, No Splenomegaly, No Palpable Masses, No Rebound, No Rigidity, No Guarding Musculoskeletal-Full Range of Motion Bilaterally, No CVAT Extremities-No Cyanosis, No Clubbing, No Edema Nuero-Cranial Nerves II-XII grossly intact, Motor WNL, DTRs WNL, Strength WNL, No Focal Psych-Somnolent Principal Diagnosis Assessment & Plan (1) Respiratory acidosis: (2) Polysubstance overdose: -Admitted to ICU -Patient presenting with an altered mental status and found to be "acting funny " while out at the local [employer] -Patient is prescribed several medications for chronic pain and ADD including: Metaxalone, baclofen, fluoxetine, Adderall, oxycodone, OxyContin, diazepam, gabapentin, hydroxyzine, amitriptyline -Outpatient chart review reveals history of prior polysubstance abuse and overdose with terminated medication use agreement with Eugenie -Upon arrival to the ED, patient was found to be hypotensive with systolic blood pressures in the 60s; patient received 2 doses of Narcan and IVF with improvement and blood pressure and mild improvement in mental status -VBG demonstrates a mild respiratory acidosis with pH 7.3, PCO2 51, HCO3 25 -will hold all sedating medications (will continue fluoxetine to prevent serotonin syndrome), continue IVF, recheck ABG upon arrival to ICU, further Narcan if needed When patient came around he signed out AMA (3) RUDY (acute kidney injury): -Likely prerenal in combination with use of nephrotoxic meds including meloxicam, lisinopril, indapamide -Hold nephrotoxic agents, give IVF, monitor renal functions closely (4) Chronic pain: (5) ADD (attention deficit disorder): -Medications as above (6) Hypertension: -Given hypotension/RUDY on arrival, holding metoprolol, amlodipine, lisinopril, indapamide (7) DM type 2 (diabetes mellitus, type 2): -Hgb A1c 6.7 04/2018 -Hold oral agents and Victoza and utilize NovoLog per protocol while hospitalized (8) History of septic arthritis: -On chronic Keflex, continue (9) NARINDER on CPAP: -CPAP as per home settings (10) Dyslipidemia: -Continue statin (11) DVT prophylaxis: -SQ heparin Discharge Exam Patient left AMA so I did not get to see him nor was he assigned to me, I was the admitting Dr, not the attending. Discharge Data Allergies Allergy/AdvReac Type Severity Reaction Status Date / Time simvastatin Allergy Unknown MUSCLE Verified 06/04/18 16:46 WEAKNESS,TINGLING Consultations 11/03/18 20:42 ED Decision to Admit Stat 11/03/18 21:58 Consult Case Management - Discharge Planning Routine Consult Mining Analyst Routine Ordered Studies 11/03/18 19:39 CT head/brain wo con Stat Hospital Course (1) Respiratory acidosis: (2) Polysubstance overdose: -Admit to ICU -Patient presenting with an altered mental status and found to be "acting funny " while out at the local [employer] -Patient is prescribed several medications for chronic pain and ADD including: Metaxalone, baclofen, fluoxetine, Adderall, oxycodone, OxyContin, diazepam, gabapentin, hydroxyzine, amitriptyline -Outpatient chart review reveals history of prior polysubstance abuse and overdose with terminated medication use agreement with Eugenie -Upon arrival to the ED, patient was found to be hypotensive with systolic blood pressures in the 60s; patient received 2 doses of Narcan and IVF with improvement and blood pressure and mild improvement in mental status -VBG demonstrates a mild respiratory acidosis with pH 7.3, PCO2 51, HCO3 25 -will hold all sedating medications (will continue fluoxetine to prevent serotonin syndrome), continue IVF, recheck ABG upon arrival to ICU, further Narcan if needed (3) RUDY (acute kidney injury): -Likely prerenal in combination with use of nephrotoxic meds including meloxicam, lisinopril, indapamide -Hold nephrotoxic agents, give IVF, monitor renal functions closely (4) Chronic pain: (5) ADD (attention deficit disorder): -Medications as above (6) Hypertension: -Given hypotension/RUDY on arrival, holding metoprolol, amlodipine, lisinopril, indapamide (7) DM type 2 (diabetes mellitus, type 2): -Hgb A1c 6.7 04/2018 -Hold oral agents and Victoza and utilize NovoLog per protocol while hospitalized (8) History of septic arthritis: -On chronic Keflex, continue (9) NARINDER on CPAP: -CPAP as per home settings (10) Dyslipidemia: -Continue statin (11) DVT prophylaxis: -SQ heparin Total Time Total Time Spent Total Time Spent (In Minutes): 35 mins Discharge Plan Discharge Items Patient Disposition: Against Medical Advice Diet: Regular Admission Data Admit Date/Time: 11/03/18 21:17 Service: Intensive Care Unit Other DC Date/Time DO NOT enter until pt leaves facility: 11/04/18 12:55
== END 2018-11-04 12:55 | disposition left against medical advice (07) | DRG 917 ==
LOC: ED 19:20 → 1E 21:17
DX: G89.29 Other chronic pain; E87.2 Acidosis; M00.9 Pyogenic arthritis, unspecified; Z79.84 Long term (current) use of oral hypoglycemic drugs; Z79.82 Long term (current) use of aspirin; G47.33 Obstructive sleep apnea (adult) (pediatric); T42.4X1A Poisoning by benzodiazepines, accidental (unintentional), initial encounter; T51.0X1A Toxic effect of ethanol, accidental (unintentional), initial encounter; E78.5 Hyperlipidemia, unspecified; E11.9 Type 2 diabetes mellitus without complications; I10 Essential (primary) hypertension; F90.9 Attention-deficit hyperactivity disorder, unspecified type; J96.00 Acute respiratory failure, unspecified whether with hypoxia or hypercapnia; Z79.2 Long term (current) use of antibiotics; Z79.899 Other long term (current) drug therapy; N17.9 Acute kidney failure, unspecified

== ENCOUNTER 2019-11-29 11:58 | Inpatient (IN) ==
[2019-11-29 13:03] LABS: Base Excess VBG -6.8 mEq/L; pH VBG 7.33 (7.36-7.41)
[2019-11-29 13:06] LABS: Basophils # (auto) 0.01 K/uL (0-0.2); Basophils % (auto) 0.2 %; Eosinophils # (auto) 0.14 K/uL (0-0.5); Hematocrit (blood only) 32.8 % (42-52); Hemoglobin 10.5 g/dL (14.0-18.0); Immature Granulocytes # (auto) 0.01 K/uL (0.00-0.02); Immature Granulocytes % (auto) 0.2 %; Lymphocytes # (auto) 0.83 K/uL (1.2-3.4); Lymphocytes % (auto) 17.5 %; Mean Corpuscular Hemoglobin 25.6 pg (25-34); Mean Platelet Volume 10.7 fL (7.4-10.4); Monocytes # (auto) 0.43 K/uL (0.11-0.59); Monocytes % (auto) 9.1 %; Neutrophils # (auto) 3.31 K/uL (1.4-6.5); Platelet Count 216 K/uL (130-400); RDW Coefficient of Variation 15.7 % (11.5-14.5); RDW Standard Deviation 45.4 fL (36.4-46.3); White Blood Count 4.73 K/uL (4.8-10.8)
[2019-11-29] MEDS: SODIUM CHLORIDE 0.9% 500 ML IV SCH ×2 (13:07→19:29)
[2019-11-29 13:14] LABS: Prothrombin Time 10.7 Seconds (9.0-12.0)
[2019-11-29 13:24] LABS: Alanine Aminotransferase 49 U/L (12-78); Albumin Level 3.6 gm/dl (3.4-5.0); Aspartate Aminotransferase 61 U/L (15-37); BUN Creatinine Ratio 23.5 (10-20); Blood Urea Nitrogen 43 mg/dl (7-18); Calcium 8.8 mg/dl (8.5-10.1); Carbon Dioxide 19 mmol/L (21-32); Chloride 115 mmol/L (98-107); Creatinine Clr Calc Pharmacy 51.5 ml/min; Est GFR (African American) 46.4; Glucose 136 mg/dl (70-99); Lipase 354 U/L (73-393); Potassium 4.4 mmol/L (3.5-5.1); Sodium 141 mmol/L (136-145)
--- NOTE | 2019-11-29 13:26 | CT Scan Report ---
CT head/brain wo con CLINICAL HISTORY: Acute change in mental status COMPARISON STUDY: November 03, 2018 TECHNIQUE: Axial CT of the brain is performed from the vertex to the skull base. IV contrast was not administered for this examination. A dose lowering technique was utilized adhering to the principles of ALARA. CT DOSE: 1228.53 mGy.cm FINDINGS: No intra or extra-axial mass lesions are visualized. There is no CT evidence of acute cortical infarc tion. There is no evidence of midline shift. There is no acute hemorrhage. No calvarial fractures ar e visualized. There are patchy white matter hypodensities likely on a small vessel basis. There is no evidence of pathologic ventricular dilatation. There is no evidence of acute sinusitis IMPRESSION: No acute intracranial findings ACT 112: Negative or not required by law. Electronically signed by: Emery Burroughs M.D. 11/29/2019 1:25 PM
[2019-11-29 13:28] LABS: Albumin Globulin Ratio 0.9 (0.9-2); Alkaline Phosphatase 100 U/L (45-117); Bilirubin,Total 0.3 mg/dl (0.2-1); Globulin 3.8 gm/dl (2.5-4.0); Total Protein 7.4 gm/dl (6.4-8.2); Troponin I < 0.015 ng/ml (0-0.045)
[2019-11-29 13:31] LABS: Acetaminophen < 2 ug/ml (10-30); Salicylate < 1.7 mg/dl (2.8-20)
--- NOTE | 2019-11-29 13:31 | XRay Report ---
XR chest 1V portable HISTORY: Altered mental status. COMPARISON: Chest 11/29/2019. FINDINGS: There are low lung volumes. The heart remains mildly enlarged. No pleural effusions. No pne umothorax. No focal lung consolidations to suggest pneumonia. No evidence for pulmonary edema. IMPRESSION: Stable mild cardiomegaly. ACT 112: Negative or not required by law. Electronically signed by: Omero Noe M.D. 11/29/2019 1:29 PM
[2019-11-29 14:32] LABS: Appearance Urine Clear (Clear); Bilirubin Urine Negative (Negative); Blood Urine Negative (Negative); Color Urine Yellow; Glucose Urine UA Negative (Negative); Ketones Urine Trace (Negative); Leukocyte Esterase Urine Negative (Negative); Nitrite Urine Negative (Negative); Protein Urine Negative (Negative); Specific Gravity Urine 1.025 (1.000-1.030); Urobilinogen Urine Negative (Negative)
[2019-11-29 14:50] LABS: Amphetamines+Metham, Urine Pos (Neg); Barbiturates, Urine Neg (Neg); Benzodiazepine, Urine Pos (Neg); Cocaine, Urine Neg (Neg); MDMA (Ecstacy), Urine Neg (Neg); Methadone, Urine Neg (Neg); Opiate, Urine Neg (Neg); Phencyclidine, Urine Neg (Neg)
--- NOTE | 2019-11-29 15:15 | History & Physical Report ---
Date of Service November 29, 2019 Assessment & Plan (1) Confusion: Called 911 from home and was noted to be confused Alert awake and oriented in the ER with agitation and abnormal movements of the extremities Hemodynamically stable without any tachycardia and/or fever Likely polysubstance abuse with withdrawal symptoms now Tylenol , salicylate and alcohol level unremarkable We will admit to telemetry unit One-to-one sitter initially (2) Polysubstance abuse: Has been on multiple substances which can cause mental impairment including metaxalone, baclofen, fluoxetine, Adderall, oxycodone, OxyContin, diazepam, gabapentin, hydroxyzine and amitriptyline Clinically seems to be withdrawing from narcotics Discussed with [facility] in [place] Was advised to discontinue benzodiazepines Was advised to decrease the dose of baclofen We will hold off any benzodiazepines, hydroxyzine and baclofen for now May need to give smaller dose of lorazepam for agitation and tremor Awaiting urine tox screen-came out negative for any use of opiates Likely to have withdrawal symptoms now We will continue with recommended dose of oxycodone IR 5 mg twice daily and OxyContin 20 mg twice daily (3) Back pain: Has chronic back pain and goes to the pain clinic at [facility] in [place] Awaiting for possible surgery as the patient was mentioning Discussed with them and found out that he has been taking oxycodone IR 5 mg twice daily as needed and OxyContin 20 mg twice daily We will continue the current dose of narcotics We will continue meloxicam as well Can use lidocaine patch (4) History of septic arthritis: No acute joint pain at this time and no acute infection We will continue Keflex for now (5) NARINDER on CPAP: No acute issue Can use his own CPAP machine (6) DM type 2 (diabetes mellitus, type 2): We will hold metformin SSI with blood sugar check up ACHS Check hemoglobin A1c (7) Hypertension: Blood pressure is controlled (8) ADD (attention deficit disorder): We will continue usual medications Chronic kidney disease Creatinine is 1.82 We will try small dose of intravenous fluid Monitor PRP DVT prophylaxis SCDs for now Likely to have pharmacologic anticoagulation from tomorrow CODE STATUS Full History of Present Illness Chief Complaint: Call 911 for help and was found to be acting abnormally with change in mental status Primary Care Provider: Rich Otoole MD He is a 58-year-old obese male with significant past medical history of chronic back pain on narcotics and muscle relaxant with history of polysubstance abuse/overdose, NARINDER on CPAP, history of septic arthritis, type 2 diabetes, hypertension, ADD and Raynaud's disease called 911 today and was noted to have change in mental status with abnormal behavior and was brought into the emergency room for further evaluation. He was seen in the pain clinic on 22 November at the time he is short-acting narcotic was decreased to 5 mg twice daily and continued with his long-acting oxycodone to 20 twice daily and he was advised not to take anymore benzodiazepines. Apparently he has been taking 60 mg baclofen at nighttime daily and was advised not to take it. During examination he was restless but otherwise alert awake and oriented. He mentioned that the home health nurse has not been coming to see him for the last 2 days but he has not overdosed any medications. His pain was worse this morning and he was acting abnormally. Denies any fever and/or chills, any cough or phlegm, any chest pain or palpitation, any shortness of breath, any abdominal pain nausea no vomiting and any problem with his urine and her bowel habit. Allergies Allergy/AdvReac Type Severity Reaction Status Date / Time simvastatin Allergy Unknown MUSCLE Verified 11/29/19 14:39 WEAKNESS,TINGLING Home Medications Home Medications Medication Instructions Recorded Confirmed Type amitriptyline 25 mg PO HS 11/03/18 11/29/19 History amlodipine 10 mg PO HS 11/03/18 11/29/19 History ammonium lactate 1 applic TOPICAL BID PRN 11/03/18 11/29/19 History aspirin [Aspir-Low] 81 mg PO HS 11/03/18 11/29/19 History baclofen 80 mg PO HS 11/03/18 11/29/19 History dextroamphetamine 5 mg PO DAILY PRN 11/03/18 11/29/19 History dextroamphetamine-amphetamine 30 mg PO QAM 11/03/18 11/29/19 History docusate sodium [DOK] 100 mg PO HS 11/03/18 11/29/19 History fexofenadine [Carmen Allergy] 180 mg PO DAILY PRN 11/03/18 11/29/19 History fluoxetine 60 mg PO HS 11/03/18 11/29/19 History fluticasone propionate [Flonase 2 spray INTRANASAL HS 11/03/18 11/29/19 History Allergy Relief] gabapentin 400 mg PO TIDM 11/03/18 11/29/19 History guaifenesin [Mucinex] 600 mg PO Q12H PRN 11/03/18 11/29/19 History hydroxyzine HCl 25 - 50 mg PO Q6 PRN 11/03/18 11/29/19 History indapamide 2.5 mg PO QAM 11/03/18 11/29/19 History ipratropium bromide 2 spray INTRANASAL QID PRN 11/03/18 11/29/19 History ketoconazole 1 applic TOPICAL BID 11/03/18 11/29/19 History liraglutide [Victoza 3-Toni] 1.2 mg SUBCUT QAM 11/03/18 11/29/19 History lisinopril 40 mg PO HS 11/03/18 11/29/19 History meloxicam 7.5 mg PO BID 11/03/18 11/29/19 History metaxalone 800 mg PO TID 11/03/18 11/29/19 History metformin 850 mg PO BID 11/03/18 11/29/19 History metoprolol tartrate 50 mg PO BID 11/03/18 11/29/19 History multivitamin 1 tab PO QDD 11/03/18 11/29/19 History ondansetron HCl 4 mg PO Q6 PRN 11/03/18 11/29/19 History oxycodone 5 mg PO BID 11/03/18 11/29/19 History pioglitazone [Actos] 30 mg PO QAM 11/03/18 11/29/19 History rosuvastatin 20 mg PO QAM 11/03/18 11/29/19 History cephalexin 500 mg tablet 500 mg PO QID tab 08/17/19 11/29/19 History acetaminophen [Tylenol 8 Hour] 650 mg PO Q12H PRN 11/29/19 11/29/19 History calcium carbonate-vitamin D3 1 cap PO QAM 11/29/19 11/29/19 History [Calcium 600 + D(3)] oxycodone [OxyContin] 20 mg PO BID 11/29/19 11/29/19 History Past Med/Surg History Medical History ADD (attention deficit disorder) (Chronic) Chronic pain (Chronic) Diverticulosis (Chronic) DM type 2 (diabetes mellitus, type 2) (Chronic) Dyslipidemia (Chronic) Femur fracture (Chronic) "S/P repair" History of septic arthritis (Chronic) Hypertension (Chronic) NARINDER on CPAP (Chronic) Raynaud disease (Chronic) Surgical History H/O hand surgery (Chronic) History of carpal tunnel surgery (Chronic) S/P left knee arthroscopy (Chronic) Status post total knee replacement, right (Chronic) Family History Other Family history non-contributory Social History Preferred Language: Ukrainian Communication Ability: Effective K 9 Handler/ Deputy Required: No Beliefs That Will Affect Care: None Current Living Situation: Alone Other Information That Helps Us Care for You: No Feels Safe at Home: Yes Safety Concerns: Feels Safe At This Time Smoking Status: Never smoker Second Hand Exposure: No ; Hx Alcohol Use: Yes Alcohol type: beer and hard liquor Hx Substance Use: No Review of Systems Review of Systems: All systems reviewed & are unremarkable except as noted in HPI & below Neurologic: + tremor(s), + abnormal movements, + restless legs and + confusion (Pleasantly confused) Physical Exam Physical Exam: Lying in bed with acute distress secondary to abnormal movements of the upper and lower extremities with tremor Constitutional: well developed, well nourished, + acute distress, + obese and + altered mental status; not intoxicated appearing Eyes: PERRL, conjunctivae normal, anicteric sclerae ENMT: external ear and nose normal, oropharynx normal Neck: trachea midline, no thyromegaly Respiratory: normal respiratory effort Auscultation: lungs clear to auscultation bilaterally Cardiovascular: Rate/Rhythm: regular rate and regular rhythm Heart Sounds: no murmur Gastrointestinal (Abdomen): Inspection/Auscultation: abdomen normal to inspection and normal bowel sounds Percussion/Palpation: abdomen soft; abdomen nontender Musculoskeletal: No acute arthritis in any joints Neurologic: moves all extremities; no focal motor deficits Speech / Cognition: normal speech Motor/Sensory: + tremor Lymphatic: no cervical or axillary lymphadenopathy Results & Data Vital Signs (Past 12 Hours) Vital Signs Temp Pulse Pulse Resp BP BP Pulse Ox 11/29/19 13:30 94 H 16 143/79 H 95 11/29/19 13:17 94 H 15 131/66 94 11/29/19 12:04 36.5 C 95 H 14 110/65 93 Laboratory Results Short CBC 11/29/19 Range/Units 12:46 WBC 4.73 L (4.8-10.8) K/uL Hgb 10.5 L (14.0-18.0) g/dL Hct 32.8 L (42-52) % Plt Count 216 (130-400) K/uL BMP 11/29/19 12:46 Sodium 141 Potassium 4.4 Chloride 115 H Carbon Dioxide 19 L BUN 43 H Creatinine 1.82 H Glucose 136 H Calcium 8.8 Cardiac Enzymes 11/29/19 Range/Units 12:46 Troponin I < 0.015 (0-0.045) ng/ml Liver Function 11/29/19 Range/Units 12:46 Total Bilirubin 0.3 (0.2-1) mg/dl AST 61 H (15-37) U/L ALT 49 (12-78) U/L Alkaline Phosphatase 100 (45-117) U/L Albumin 3.6 (3.4-5.0) gm/dl Urine 11/29/19 Range/Units 14:20 Urine Color Yellow Urine Appearance Clear (Clear) Urine pH 5.0 (4.5-7.5) Ur Specific [place] 1.025 (1.000-1.030) Urine Protein Negative (Negative) Urine Glucose (UA) Negative (Negative) Medications Administered Current Inpatient Medications Sodium Chloride (Nss) 500 mls @ 999 mls/hr IV .Q31M FRANCESCA Stop: 12/09/19 23:00 Last Infusion: 11/29/19 14:01 Dose: Infused Documented by: Code Status & VTE Plan VTE Prophylaxis Plan VTE Prophylaxis will be ordered: Yes (1) Back pain Back pain laterality: unspecified Back pain location: back pain in unspecified location Chronicity: unspecified Qualified Code(s): M54.9 - Dorsalgia, unspecified
[2019-11-29] MEDS ORDERED: LORazepam 0.5 MG/1 ML VIAL IV STA (15:21)
--- NOTE | 2019-11-29 15:35 | Emergency Department Note ---
Entered by Maryann Saucedo acting as a scribe for History of Present Illness General Chief complaint: Back Injury/Pain Stated complaint: BACK PAIN Time Seen by Provider: 11/29/19 12:25 Source: patient History of Present Illness Onset (ago): day(s) (today) Location: back Radiation: neck Pain Consistency: + other (worsening) Maximum Pain Intensity: 8 Associated symptoms: + denies other symptoms (recent falls), + fever/chills (fever) and + other (drowsy, left foot infection); no chest pain and no headaches The patient is a 58 year old male who presents to the Emergency Room with complaints of worsening back pain starting today. The patient states that he has chronic back pain and is scheduled for a lumbar and cervical fusion soon. He states that today his lower back pain and neck pain became much worse so he called 911. The patient complains of feeling drowsy, a fever, and having a left foot infection. He notes that he is on Baclofen, Cipro, and 20 of Oxycodone in the morning. He states that he did not take any of his medication today and last had his Oxycodone last night. The patient denies chest pain, headache, use of alcohol, and recent falls. Home Medications Home Medications Medication Instructions Recorded Confirmed Type amitriptyline 25 mg PO HS 11/03/18 11/29/19 History amlodipine 10 mg PO HS 11/03/18 11/29/19 History ammonium lactate 1 applic TOPICAL BID PRN 11/03/18 11/29/19 History aspirin [Aspir-Low] 81 mg PO HS 11/03/18 11/29/19 History baclofen 80 mg PO 11/03/18 11/29/19 History dextroamphetamine 5 mg PO DAILY PRN 11/03/18 11/29/19 History dextroamphetamine-amphetamine 30 mg PO QAM 11/03/18 11/29/19 History docusate sodium [DOK] 100 mg PO HS 11/03/18 11/29/19 History fexofenadine [Carmen Allergy] 180 mg PO DAILY PRN 11/03/18 11/29/19 History fluoxetine 60 mg PO HS 11/03/18 11/29/19 History fluticasone propionate [Flonase 2 spray INTRANASAL HS 11/03/18 11/29/19 History Allergy Relief] gabapentin 400 mg PO TIDM 11/03/18 11/29/19 History guaifenesin [Mucinex] 600 mg PO Q12H PRN 11/03/18 11/29/19 History hydroxyzine HCl 25 - 50 mg PO Q6 PRN 11/03/18 11/29/19 History indapamide 2.5 mg PO QAM 11/03/18 11/29/19 History ipratropium bromide 2 spray INTRANASAL QID PRN 11/03/18 11/29/19 History ketoconazole 1 applic TOPICAL BID 11/03/18 11/29/19 History liraglutide [Victoza 3-Toni] 1.2 mg SUBCUT QAM 11/03/18 11/29/19 History lisinopril 40 mg PO HS 11/03/18 11/29/19 History meloxicam 7.5 mg PO BID 11/03/18 11/29/19 History metaxalone 800 mg PO TID 11/03/18 11/29/19 History metformin 850 mg PO BID 11/03/18 11/29/19 History metoprolol tartrate 50 mg PO BID 11/03/18 11/29/19 History multivitamin 1 tab PO QDD 11/03/18 11/29/19 History ondansetron HCl 4 mg PO Q6 PRN 11/03/18 11/29/19 History oxycodone 5 mg PO BID 11/03/18 11/29/19 History pioglitazone [Actos] 30 mg PO QAM 11/03/18 11/29/19 History rosuvastatin 20 mg PO QAM 11/03/18 11/29/19 History cephalexin 500 mg tablet 500 mg PO QID tab 08/17/19 11/29/19 History acetaminophen [Tylenol 8 Hour] 650 mg PO Q12H PRN 11/29/19 11/29/19 History calcium carbonate-vitamin D3 1 cap PO QAM 11/29/19 11/29/19 History [Calcium 600 + D(3)] oxycodone [OxyContin] 20 mg PO BID 11/29/19 11/29/19 History Allergies Allergy/AdvReac Type Severity Reaction Status Date / Time simvastatin Allergy Unknown MUSCLE Verified 11/29/19 14:39 WEAKNESS,TINGLING Past Med/Surg History Medical History ADD (attention deficit disorder) (Chronic) Chronic pain (Chronic) Diverticulosis (Chronic) DM type 2 (diabetes mellitus, type 2) (Chronic) Dyslipidemia (Chronic) Femur fracture (Chronic) "S/P repair" History of septic arthritis (Chronic) Hypertension (Chronic) NARINDER on CPAP (Chronic) Raynaud disease (Chronic) Surgical History H/O hand surgery (Chronic) History of carpal tunnel surgery (Chronic) S/P left knee arthroscopy (Chronic) Status post total knee replacement, right (Chronic) Family History Other Family history non-contributory Social History Preferred Language: Danish Communication Ability: Effective Funeral Car Driver Required: No Beliefs That Will Affect Care: None Current Living Situation: Alone Other Information That Helps Us Care for You: No Feels Safe at Home: Yes Safety Concerns: Feels Safe At This Time Smoking Status: Never smoker Second Hand Exposure: No ; Hx Alcohol Use: Yes Alcohol type: beer and hard liquor Hx Substance Use: No Review of Systems See HPI for pertinent positives & negatives. and A total of 10 systems reviewed and were otherwise negative Physical Exam Vital Signs Vital Signs - 24 hr 11/29/19 12:04 11/29/19 13:17 11/29/19 13:30 Temperature 36.5 C Temperature Source Oral Pulse Rate 95 H Pulse Rate [Apical] 94 H 94 H Pulse Rhythm [Apical] Regular Regular Pulse Strength Normal Respiratory Rate 14 15 16 Respiratory Effort / Characteristics Spontaneous Spontaneous Spontaneous Respiratory Pattern Regular Regular Regular Blood Pressure 110/65 Blood Pressure [Left Arm] 131/66 143/79 H Blood Pressure Mean 80 Blood Pressure Mean [Left Arm] 87 100 Pulse Oximetry 93 94 95 Oxygen Delivery Method Room Air Room Air Room Air Sepsis Recent Fever Within 48 Hours No Sepsis New/Unexplained Change in Mental Status No Sepsis Action Taken by Nursing No Action Required 11/29/19 15:00 Temperature Temperature Source Pulse Rate Pulse Rate [Apical] 89 Pulse Rhythm [Apical] Regular Pulse Strength Respiratory Rate 16 Respiratory Effort / Characteristics Spontaneous Respiratory Pattern Regular Blood Pressure Blood Pressure [Left Arm] 118/66 Blood Pressure Mean Blood Pressure Mean [Left Arm] 83 Pulse Oximetry 95 Oxygen Delivery Method Room Air Sepsis Recent Fever Within 48 Hours Sepsis New/Unexplained Change in Mental Status Sepsis Action Taken by Nursing GENERAL: Awake, alert, well-appearing, in no distress. Poorly kept. HENT: Normocephalic, atraumatic. Oropharynx unremarkable. Eyes closed. EYES: Normal conjunctiva. Sclera non-icteric. Pupils 3mm and reactive. NECK: Supple. No nuchal rigidity. RESPIRATORY: Clear to auscultation. No wheezes. Normal respiratory effort. CARDIAC: Normal rate. Normal rhythm. Extremities warm and well perfused. GI: Soft, non-distended. No tenderness to palpation. RECTAL: Deferred. MUSCULOSKELETAL: Atraumatic. Chest examination reveals no tenderness. Mild lower lumbar tenderness. LOWER EXTREMITIES: Calves are equal size bilaterally and non-tender. No edema. 2 cm left great toe medial wound with mild erythema. NEURO: Somnolent. Responsive to loud verbal stimuli. No sensory or motor deficits noted. No facial droop. SKIN: Warm and dry. No rash or jaundice noted. Course Course 1226: The patient was evaluated in room A9B. A complete history and physical exam was performed. 1345: I reevaluated the patient and he is doing well. 1400: I reevaluated the patient and updated him on his test results. I discussed the treatment plan with him. He verbally agrees and understands. 1403: I discussed the patient's case with Dr. Daniel Soliman Hospitalist. He will evaluate the patient for further management. Administered Medications Sodium Chloride (Nss) 500 mls @ 999 mls/hr IV .Q31M FRANCESCA Stop: 12/09/19 23:00 Last Infusion: 11/29/19 14:01 Dose: 0 mls/hr Documented by: [id number] Admin: 11/29/19 13:07 Dose: 999 mls/hr Documented by: [id number] Medical Decision Making Differential Diagnosis Differential diagnoses includes but is not limited to toxic, metabolic, infectious, traumatic, cardiac, neurologic, hematologic, psychiatric and inflammatory etiologies. Medical Records Attestation: I reviewed the patient's medical records. Home Medications Current Medication List: was personally reviewed by me Laboratory Data Attestation: I reviewed the patient's lab results. Result diagrams: 11/29/19 12:46 11/29/19 12:46 Lab Results 11/29/19 11/29/19 11/29/19 Range/Units 12:35 12:46 12:46 WBC 4.73 L (4.8-10.8) K/uL RBC 4.10 L (4.7-6.1) M/uL Hgb 10.5 L (14.0-18.0) g/dL Hct 32.8 L (42-52) % MCV 80.0 (80-100) fL MCH 25.6 (25-34) pg MCHC 32.0 (32-36) g/dL RDW Std Deviation 45.4 (36.4-46.3) fL RDW Coeff of Kiki 15.7 H (11.5-14.5) % Plt Count 216 (130-400) K/uL MPV 10.7 H (7.4-10.4) fL Immature Gran % (Auto) 0.2 % Neut % (Auto) 70.0 % Lymph % (Auto) 17.5 % Davidson % (Auto) 9.1 % Eos % (Auto) 3.0 % Baso % (Auto) 0.2 % Immature Gran # (Auto) 0.01 (0.00-0.02) K/uL Neut # (Auto) 3.31 (1.4-6.5) K/uL Lymph # (Auto) 0.83 L (1.2-3.4) K/uL Davidson # (Auto) 0.43 (0.11-0.59) K/uL Eos # (Auto) 0.14 (0-0.5) K/uL Baso # (Auto) 0.01 (0-0.2) K/uL PT 10.7 (9.0-12.0) Seconds INR 1.0 (0.9-1.1) VBG pH (7.36-7.41) VBG pCO2 (38-50) mmHg VBG pO2 mmHg VBG HCO3 mmol/L VBG O2 Saturation % VBG Base Excess mEq/L Barometric Pressure mm/Hg Sodium (136-145) mmol/L Potassium (3.5-5.1) mmol/L Chloride (98-107) mmol/L Carbon Dioxide (21-32) mmol/L Anion Gap (3-11) BUN (7-18) mg/dl Creatinine (0.6-1.4) mg/dl Est Cr Clr Drug Dosing ml/min Est GFR ( Amer) Est GFR (Non-Af Amer) BUN/Creatinine Ratio (10-20) Glucose (70-99) mg/dl POC Glucose 190 H (70-99) mg/dl Calcium (8.5-10.1) mg/dl Magnesium (1.8-2.4) mg/dl Total Bilirubin (0.2-1) mg/dl AST (15-37) U/L ALT (12-78) U/L Alkaline Phosphatase (45-117) U/L Ammonia (11-32) umol/L Troponin I (0-0.045) ng/ml Total Protein (6.4-8.2) gm/dl Albumin (3.4-5.0) gm/dl Globulin (2.5-4.0) gm/dl Albumin/Globulin Ratio (0.9-2) Lipase (73-393) U/L Urine Color Urine Appearance (Clear) Urine pH (4.5-7.5) Ur Specific Early (1.000-1.030) Urine Protein (Negative) Urine Glucose (UA) (Negative) Urine Ketones (Negative) Urine Blood (Negative) Urine Nitrite (Negative) Urine Bilirubin (Negative) Urine Urobilinogen (Negative) Ur Leukocyte Esterase (Negative) Salicylates (2.8-20) mg/dl Urine Opiates Screen (Neg) Ur Methadone, Qual (Neg) Acetaminophen (10-30) ug/ml Urine Barbiturates (Neg) Ur Phencyclidine (PCP) (Neg) U Amphetamin/Meth Scrn (Neg) MDMA (Ecstasy) Screen (Neg) U Benzodiazepines Scrn (Neg) Ur Cocaine Metabolite (Neg) U Marijuana (THC) Screen (Neg) Ethyl Alcohol mg/dL (0-3) mg/dl 11/29/19 11/29/19 11/29/19 Range/Units 12:46 12:46 12:46 WBC (4.8-10.8) K/uL RBC (4.7-6.1) M/uL Hgb (14.0-18.0) g/dL Hct (42-52) % MCV (80-100) fL MCH (25-34) pg MCHC (32-36) g/dL RDW Std Deviation (36.4-46.3) fL RDW Coeff of Kiki (11.5-14.5) % Plt Count (130-400) K/uL MPV (7.4-10.4) fL Immature Gran % (Auto) % Neut % (Auto) % Lymph % (Auto) % Davidson % (Auto) % Eos % (Auto) % Baso % (Auto) % Immature Gran # (Auto) (0.00-0.02) K/uL Neut # (Auto) (1.4-6.5) K/uL Lymph # (Auto) (1.2-3.4) K/uL Davidson # (Auto) (0.11-0.59) K/uL Eos # (Auto) (0-0.5) K/uL Baso # (Auto) (0-0.2) K/uL PT (9.0-12.0) Seconds INR (0.9-1.1) VBG pH (7.36-7.41) VBG pCO2 (38-50) mmHg VBG pO2 mmHg VBG HCO3 mmol/L VBG O2 Saturation % VBG Base Excess mEq/L Barometric Pressure mm/Hg Sodium 141 (136-145) mmol/L Potassium 4.4 (3.5-5.1) mmol/L Chloride 115 H (98-107) mmol/L Carbon Dioxide 19 L (21-32) mmol/L Anion Gap 7.0 (3-11) BUN 43 H (7-18) mg/dl Creatinine 1.82 H (0.6-1.4) mg/dl Est Cr Clr Drug Dosing 51.5 ml/min Est GFR ( Amer) 46.4 Est GFR (Non-Af Amer) 40.0 BUN/Creatinine Ratio 23.5 H (10-20) Glucose 136 H (70-99) mg/dl POC Glucose (70-99) mg/dl Calcium 8.8 (8.5-10.1) mg/dl Magnesium 2.0 (1.8-2.4) mg/dl Total Bilirubin 0.3 (0.2-1) mg/dl AST 61 H (15-37) U/L ALT 49 (12-78) U/L Alkaline Phosphatase 100 (45-117) U/L Ammonia 16.7 (11-32) umol/L Troponin I < 0.015 (0-0.045) ng/ml Total Protein 7.4 (6.4-8.2) gm/dl Albumin 3.6 (3.4-5.0) gm/dl Globulin 3.8 (2.5-4.0) gm/dl Albumin/Globulin Ratio 0.9 (0.9-2) Lipase 354 (73-393) U/L Urine Color Urine Appearance (Clear) Urine pH (4.5-7.5) Ur Specific Early (1.000-1.030) Urine Protein (Negative) Urine Glucose (UA) (Negative) Urine Ketones (Negative) Urine Blood (Negative) Urine Nitrite (Negative) Urine Bilirubin (Negative) Urine Urobilinogen (Negative) Ur Leukocyte Esterase (Negative) Salicylates < 1.7 L (2.8-20) mg/dl Urine Opiates Screen (Neg) Ur Methadone, Qual (Neg) Acetaminophen < 2 L (10-30) ug/ml Urine Barbiturates (Neg) Ur Phencyclidine (PCP) (Neg) U Amphetamin/Meth Scrn (Neg) MDMA (Ecstasy) Screen (Neg) U Benzodiazepines Scrn (Neg) Ur Cocaine Metabolite (Neg) U Marijuana (THC) Screen (Neg) Ethyl Alcohol mg/dL (0-3) mg/dl 11/29/19 11/29/19 11/29/19 Range/Units 12:46 12:46 14:20 WBC (4.8-10.8) K/uL RBC (4.7-6.1) M/uL Hgb (14.0-18.0) g/dL Hct (42-52) % MCV (80-100) fL MCH (25-34) pg MCHC (32-36) g/dL RDW Std Deviation (36.4-46.3) fL RDW Coeff of Kiki (11.5-14.5) % Plt Count (130-400) K/uL MPV (7.4-10.4) fL Immature Gran % (Auto) % Neut % (Auto) % Lymph % (Auto) % Davidson % (Auto) % Eos % (Auto) % Baso % (Auto) % Immature Gran # (Auto) (0.00-0.02) K/uL Neut # (Auto) (1.4-6.5) K/uL Lymph # (Auto) (1.2-3.4) K/uL Davidson # (Auto) (0.11-0.59) K/uL Eos # (Auto) (0-0.5) K/uL Baso # (Auto) (0-0.2) K/uL PT (9.0-12.0) Seconds INR (0.9-1.1) VBG pH 7.33 L (7.36-7.41) VBG pCO2 36 L (38-50) mmHg VBG pO2 47 mmHg VBG HCO3 19 mmol/L VBG O2 Saturation 78.0 % VBG Base Excess -6.8 mEq/L Barometric Pressure 737.1 mm/Hg Sodium (136-145) mmol/L Potassium (3.5-5.1) mmol/L Chloride (98-107) mmol/L Carbon Dioxide (21-32) mmol/L Anion Gap (3-11) BUN (7-18) mg/dl Creatinine (0.6-1.4) mg/dl Est Cr Clr Drug Dosing ml/min Est GFR ( Amer) Est GFR (Non-Af Amer) BUN/Creatinine Ratio (10-20) Glucose (70-99) mg/dl POC Glucose (70-99) mg/dl Calcium (8.5-10.1) mg/dl Magnesium (1.8-2.4) mg/dl Total Bilirubin (0.2-1) mg/dl AST (15-37) U/L ALT (12-78) U/L Alkaline Phosphatase (45-117) U/L Ammonia (11-32) umol/L Troponin I (0-0.045) ng/ml Total Protein (6.4-8.2) gm/dl Albumin (3.4-5.0) gm/dl Globulin (2.5-4.0) gm/dl Albumin/Globulin Ratio (0.9-2) Lipase (73-393) U/L Urine Color Urine Appearance (Clear) Urine pH (4.5-7.5) Ur Specific Early (1.000-1.030) Urine Protein (Negative) Urine Glucose (UA) (Negative) Urine Ketones (Negative) Urine Blood (Negative) Urine Nitrite (Negative) Urine Bilirubin (Negative) Urine Urobilinogen (Negative) Ur Leukocyte Esterase (Negative) Salicylates (2.8-20) mg/dl Urine Opiates Screen Neg (Neg) Ur Methadone, Qual Neg (Neg) Acetaminophen (10-30) ug/ml Urine Barbiturates Neg (Neg) Ur Phencyclidine (PCP) Neg (Neg) U Amphetamin/Meth Scrn Pos H (Neg) MDMA (Ecstasy) Screen Neg (Neg) U Benzodiazepines Scrn Pos H (Neg) Ur Cocaine Metabolite Neg (Neg) U Marijuana (THC) Screen Neg (Neg) Ethyl Alcohol mg/dL < 3.0 (0-3) mg/dl 11/29/19 Range/Units 14:20 WBC (4.8-10.8) K/uL RBC (4.7-6.1) M/uL Hgb (14.0-18.0) g/dL Hct (42-52) % MCV (80-100) fL MCH (25-34) pg MCHC (32-36) g/dL RDW Std Deviation (36.4-46.3) fL RDW Coeff of Kiki (11.5-14.5) % Plt Count (130-400) K/uL MPV (7.4-10.4) fL Immature Gran % (Auto) % Neut % (Auto) % Lymph % (Auto) % Davidson % (Auto) % Eos % (Auto) % Baso % (Auto) % Immature Gran # (Auto) (0.00-0.02) K/uL Neut # (Auto) (1.4-6.5) K/uL Lymph # (Auto) (1.2-3.4) K/uL Davidson # (Auto) (0.11-0.59) K/uL Eos # (Auto) (0-0.5) K/uL Baso # (Auto) (0-0.2) K/uL PT (9.0-12.0) Seconds INR (0.9-1.1) VBG pH (7.36-7.41) VBG pCO2 (38-50) mmHg VBG pO2 mmHg VBG HCO3 mmol/L VBG O2 Saturation % VBG Base Excess mEq/L Barometric Pressure mm/Hg Sodium (136-145) mmol/L Potassium (3.5-5.1) mmol/L Chloride (98-107) mmol/L Carbon Dioxide (21-32) mmol/L Anion Gap (3-11) BUN (7-18) mg/dl Creatinine (0.6-1.4) mg/dl Est Cr Clr Drug Dosing ml/min Est GFR ( Amer) Est GFR (Non-Af Amer) BUN/Creatinine Ratio (10-20) Glucose (70-99) mg/dl POC Glucose (70-99) mg/dl Calcium (8.5-10.1) mg/dl Magnesium (1.8-2.4) mg/dl Total Bilirubin (0.2-1) mg/dl AST (15-37) U/L ALT (12-78) U/L Alkaline Phosphatase (45-117) U/L Ammonia (11-32) umol/L Troponin I (0-0.045) ng/ml Total Protein (6.4-8.2) gm/dl Albumin (3.4-5.0) gm/dl Globulin (2.5-4.0) gm/dl Albumin/Globulin Ratio (0.9-2) Lipase (73-393) U/L Urine Color Yellow Urine Appearance Clear (Clear) Urine pH 5.0 (4.5-7.5) Ur Specific Early 1.025 (1.000-1.030) Urine Protein Negative (Negative) Urine Glucose (UA) Negative (Negative) Urine Ketones Trace H (Negative) Urine Blood Negative (Negative) Urine Nitrite Negative (Negative) Urine Bilirubin Negative (Negative) Urine Urobilinogen Negative (Negative) Ur Leukocyte Esterase Negative (Negative) Salicylates (2.8-20) mg/dl Urine Opiates Screen (Neg) Ur Methadone, Qual (Neg) Acetaminophen (10-30) ug/ml Urine Barbiturates (Neg) Ur Phencyclidine (PCP) (Neg) U Amphetamin/Meth Scrn (Neg) MDMA (Ecstasy) Screen (Neg) U Benzodiazepines Scrn (Neg) Ur Cocaine Metabolite (Neg) U Marijuana (THC) Screen (Neg) Ethyl Alcohol mg/dL (0-3) mg/dl Imaging Data Radiologist's Impression: Radiology results as stated below per my review and the radiologist's interpretation: XR chest 1V portable HISTORY: Altered mental status. COMPARISON: Chest 11/29/2019. FINDINGS: There are low lung volumes. The heart remains mildly enlarged. No pleural effusions. No pneumothorax. No focal lung consolidations to suggest pneumonia. No evidence for pulmonary edema. IMPRESSION: Stable mild cardiomegaly. ACT 112: Negative or not required by law. Electronically signed by: Omero Noe M.D. 11/29/2019 1:[address] head/brain wo con CLINICAL HISTORY: Acute change in mental status COMPARISON STUDY: November 03, 2018 TECHNIQUE: Axial CT of the brain is performed from the vertex to the skull base. IV contrast was not administered for this examination. A dose lowering technique was utilized adhering to the principles of ALARA. CT DOSE: 1228.53 mGy.cm FINDINGS: No intra or extra-axial mass lesions are visualized. There is no CT evidence of acute cortical infarction. There is no evidence of midline shift. There is no acute hemorrhage. No calvarial fractures are visualized. There are patchy white matter hypodensities likely on a small vessel basis. There is no evidence of pathologic ventricular dilatation. There is no evidence of acute sinusitis IMPRESSION: No acute intracranial findings ACT 112: Negative or not required by law. Electronically signed by: Emery Burroughs M.D. 11/29/2019 1:25 PM ECG Data Attestation: I personally reviewed and interpreted this ECG as follows: Indication: + back/shoulder pain Rate (beats per minute): 94 Rhythm: + normal sinus ECG Intervals/blocks: + Normal QRS ECG [place]: + Normal ECG ST segments: no ST elevation ECG Findings: no PVCs Blood Pressure Blood Pressure Findings: Elevated blood pressure Blood Pressure Disposition: Referred to patients primary care provider [facility] Narrative Patient is a 58-year-old gentleman with a past medical history including history of diabetes, hypertension, chronic back pain, polysubstance abuse, and toe infection currently on ciprofloxacin presenting today via ambulance with concerns about his mental status. Evidently patient was at home and EMS police were called to the scene. EMS states the police know the patient and were rashmi rned about his behaviors as he was fidgety antsy somewhat stuporous and drowsy. EMS reports in route patient did have some decreased respiratory rate 8. Patient denies taking any medicines today and and reports his last oxycodone yesterday. Patient is reportedly being scheduled for lumbar and cervical fusion. Patient complains of some back pain. Patient is quite drowsy upon my initial evaluation. Have concerns about possible unintentional overdose as he is on multiple medications and has a history. Broad differential was entertained. CT imaging EKG and basic labs were obtained. Alcohol level and UDS was sent. No acute findings. On reevaluation required a sternal rub to get the patient awake and he still seems quite somnolent. Do not see acute Will answer questions but then quickly falls back to sleep. Concerned that he is accumulated some amount of depressants in his system. Given this further observation the hospital I believe is indicated. Discussed with the [facility] hospitalist. Impression & Plan Confusion, Back pain Discharge Plan Visit Data Chief Complaint: Back Injury/Pain Stated Complaint: BACK PAIN ED Provider: Girma Mueller Discharge Problem: Confusion, Back pain Patient Disposition: Being Evaluated by Hospitalist Forms Stand Alone Forms: My [facility] Prescriptions Prescriptions: No Action ammonium lactate 12 % Lotion 1 applic TOPICAL BID PRN (Reason: Dry Skin) RF: 0 dextroamphetamine 5 mg Tablet 5 mg PO DAILY PRN (Reason: AFTERNOON SLEEPINESS) RF: 0 gabapentin 400 mg Capsule 400 mg PO TIDM RF: 0 baclofen 20 mg Tablet 80 mg PO HS RF: 0 meloxicam 7.5 mg Tablet 7.5 mg PO BID RF: 0 amitriptyline 25 mg Tablet 25 mg PO HS RF: 0 amlodipine 10 mg Tablet 10 mg PO HS RF: 0 fluoxetine 20 mg Tablet 60 mg PO HS RF: 0 metoprolol tartrate 50 mg Tablet 50 mg PO BID RF: 0 pioglitazone [Actos] 30 mg Tablet 30 mg PO QAM RF: 0 dextroamphetamine-amphetamine 30 mg Capsule,Extended Release 24hr 30 mg PO QAM RF: 0 lisinopril 40 mg Tablet 40 mg PO HS RF: 0 fluticasone propionate [Flonase Allergy Relief] 50 mcg/actuation Somers,Suspension 2 spray INTRANASAL HS RF: 0 docusate sodium [DOK] 100 mg Tablet 100 mg PO HS RF: 0 oxycodone 5 mg Tablet 5 mg PO BID RF: 0 metaxalone 800 mg Tablet 800 mg PO TID RF: 0 ketoconazole 2 % Shampoo 1 applic topical BID RF: 0 ondansetron HCl 4 mg Tablet 4 mg PO Q6 PRN (Reason: Nausea) RF: 0 metformin 850 mg Tablet 850 mg PO BID RF: 0 fexofenadine [Carmen Allergy] 180 mg Tablet 180 mg PO DAILY PRN (Reason: Allergy Symptoms) RF: 0 aspirin [Aspir-Low] 81 mg Tablet,Delayed Release (Dr/Ec) 81 mg PO HS RF: 0 hydroxyzine HCl 25 mg Tablet 25 - 50 mg PO Q6 PRN (Reason: ITCHY) RF: 0 ipratropium bromide 0.03 % Somers,Non-Aerosol 2 spray INTRANASAL QID PRN (Reason: Runny Nose) RF: 0 rosuvastatin 20 mg Tablet 20 mg PO QAM RF: 0 Victoza 3-Toni 0.6 mg/0.1 mL (18 mg/3 mL) Pen Injector 1.2 mg SUBCUT QAM RF: 0 guaifenesin [Mucinex] 600 mg Tablet Extended Release 12hr 600 mg PO Q12H PRN (Reason: Congestion) RF: 0 multivitamin Tablet 1 tab PO QDD RF: 0 indapamide 2.5 mg Tablet 2.5 mg PO QAM RF: 0 cephalexin 500 mg tablet 500 mg PO QID RF: 0 Calcium 600 + D(3) 600 mg calcium- 200 unit Capsule 1 cap PO QAM RF: 0 acetaminophen [Tylenol 8 Hour] 650 mg Tablet Extended Release 650 mg PO Q12H PRN (Reason: Pain) RF: 0 oxycodone [OxyContin] 20 mg Tablet,Oral Only,Ext.Rel.12 Hr 20 mg PO BID RF: 0 Referrals Referrals: Rich Otoole MD [Primary Care Provider] - Discharge Problem: Back pain Qualifiers: Back pain location: back pain in unspecified location Chronicity: unspecified Back pain laterality: unspecified Qualified Code(s): M54.9 - Dorsalgia, unspecified The scribe's documentation has been prepared under my direction and personally reviewed by me in its entirety. I confirm that the note above accurately reflects all work, treatment, procedures, and medical decision making performed by me.
[2019-11-29] MEDS ORDERED: AMMONIUM LACTATE 12% LOTION 225 GM BTL EXT PRN (16:43)
[2019-11-29] MEDS ORDERED: ACETAMINOPHEN 500 MG TAB PO PRN (16:43)
[2019-11-29] MEDS ORDERED: guaiFENesin 600 MG TABCR PO PRN (16:43)
[2019-11-29] MEDS ORDERED: DEXTROAMPHETAMINE 5 MG PO PRN (16:43)
[2019-11-29] MEDS ORDERED: OXYCODONE HCL IR 5 MG TAB (IMMEDIATE RELEASE) PO PRN (16:55)
[2019-11-29] MEDS ORDERED: GLUCOSE 40% GEL 15 GM TUBE PO PRN (17:15)
[2019-11-29] MEDS ORDERED: GLUCAGON FOR INJ 1 MG VIAL SQ PRN (17:15)
[2019-11-29] MEDS ORDERED: GLUCOSE 10 TABS/TUBE PO PRN (17:15)
[2019-11-29] MEDS ORDERED: CARBOHYDRATES FOR HYPOGLYCEMIA PO PRN (17:15)
[2019-11-29] MEDS ORDERED: DEXTROSE 50% 50 ML SYRINGE IV PRN (17:15)
[2019-11-29] MEDS: SODIUM CHLORIDE 0.9% 1000ML 1,000 ML IV SCH (17:16)
[2019-11-29] MEDS ORDERED: IPRATROPIUM BROMIDE NASAL SPRAY 0.06% 15ML NAE PRN (17:34)
--- NOTE | 2019-11-29 17:42 | Electrocardiogram Report ---
Test Reason : Blood Pressure : / mmHG Vent. Rate : 094 BPM Atrial Rate : 094 BPM P-R Int : 142 ms QRS Dur : 098 ms QT Int : 366 ms P-R-T Axes : 058 024 024 degrees QTc Int : 457 ms Normal sinus rhythm Normal ECG When compared with ECG of 03-NOV-2018 19:27, No significant change was found Confirmed by Tim Turk ([id number]) on 11/29/2019 5:41:54 PM Referred By: ED Confirmed By:Raul Turk
[2019-11-29] MEDS: GABAPENTIN 400 MG CAP PO SCH (18:07)
[2019-11-29] MEDS: cephALEXin 250 MG CAP PO SCH (18:23)
[2019-11-29] MEDS: OXYCODONE HCL 20 MG TABCR (OXYCONTIN) PO SCH (21:09)
[2019-11-29] MEDS: INSULIN ASPART 100 UNITS/ML 3 ML PEN SC SCH (21:13)
[2019-11-29] MEDS: FLUOXETINE HCL 20 MG CAP PO SCH (21:16)
[2019-11-29] MEDS: DOCUSATE SODIUM 100 MG CAP PO SCH (21:16)
[2019-11-29] MEDS: AMITRIPTYLINE HCL 25 MG TAB PO SCH (21:16)
[2019-11-29] MEDS: ASPIRIN 81 MG ECTAB PO SCH (21:17)
[2019-11-29] MEDS: METOPROLOL TARTRATE 50 MG TAB PO SCH (21:17)
[2019-11-29] MEDS: AMLODIPINE BESYLATE 5 MG TAB PO SCH (21:17)
[2019-11-29] MEDS: METAXALONE 800 MG TABLET PO SCH (21:18)
[2019-11-29] MEDS: MELOXICAM 7.5 MG TAB PO SCH (21:20)
[2019-11-30] MEDS: cephALEXin 250 MG CAP PO SCH ×3 (01:13→12:12)
[2019-11-30] MEDS: SODIUM CHLORIDE 0.9% 1000ML 1,000 ML IV SCH (05:12)
[2019-11-30 07:40] LABS: Basophils # (auto) 0.01 K/uL (0-0.2); Basophils % (auto) 0.2 %; Eosinophils # (auto) 0.14 K/uL (0-0.5); Eosinophils % (auto) 2.9 %; Hematocrit (blood only) 30.9 % (42-52); Immature Granulocytes # (auto) 0.02 K/uL (0.00-0.02); Immature Granulocytes % (auto) 0.4 %; Lymphocytes # (auto) 1.47 K/uL (1.2-3.4); Lymphocytes % (auto) 30.2 %; Mean Corpuscular Hgb Conc 32.4 g/dL (32-36); Mean Corpuscular Volume 80.3 fL (80-100); Mean Platelet Volume 10.3 fL (7.4-10.4); Monocytes # (auto) 0.58 K/uL (0.11-0.59); Monocytes % (auto) 11.9 %; Neutrophils # (auto) 2.64 K/uL (1.4-6.5); Neutrophils % (auto) 54.4 %; Platelet Count 182 K/uL (130-400); RDW Coefficient of Variation 16.1 % (11.5-14.5); RDW Standard Deviation 46.8 fL (36.4-46.3); Red Blood Count 3.85 M/uL (4.7-6.1); White Blood Count 4.86 K/uL (4.8-10.8)
[2019-11-30] MEDS: GABAPENTIN 400 MG CAP PO SCH ×3 (07:51→17:01)
[2019-11-30] MEDS: MELOXICAM 7.5 MG TAB PO SCH ×2 (07:51→21:36)
[2019-11-30] MEDS: FEXOFENADINE HCL 180 MG TAB PO SCH (07:52)
[2019-11-30] MEDS: PIOGLITAZONE HCL 15 MG TAB PO SCH (07:52)
[2019-11-30] MEDS: MULTIVITAMIN TAB PO SCH (07:52)
[2019-11-30] MEDS: FLUTICASONE PROPIONATE NA SPR 16 GM BTL SCH (07:53)
[2019-11-30] MEDS: DOCUSATE SODIUM 100 MG CAP PO SCH ×2 (07:53→21:35)
[2019-11-30] MEDS: METOPROLOL TARTRATE 50 MG TAB PO SCH ×2 (07:53→21:35)
[2019-11-30] MEDS: ROSUVASTATIN CALCIUM 20 MG TAB PO SCH (07:53)
[2019-11-30] MEDS: CALCIUM 600MG + VIT D 400 IU TAB PO SCH (07:54)
[2019-11-30] MEDS: lisinopriL 40 MG TAB PO SCH (07:55)
[2019-11-30] MEDS: METAXALONE 800 MG TABLET PO SCH ×3 (07:55→21:33)
[2019-11-30] MEDS: OXYCODONE HCL 20 MG TABCR (OXYCONTIN) PO SCH ×2 (07:59→21:37)
[2019-11-30] MEDS: INSULIN ASPART 100 UNITS/ML 3 ML PEN SC SCH ×4 (08:00→21:28)
[2019-11-30 08:08] LABS: BUN Creatinine Ratio 20.9 (10-20); Calcium 8.3 mg/dl (8.5-10.1); Est GFR (African American) 79.2; Est GFR (Non-African American) 68.3; Potassium 4.2 mmol/L (3.5-5.1)
[2019-11-30] MEDS ORDERED: Nursing to Pharmacy Communication ONE (08:16)
[2019-11-30] MEDS ORDERED: DEXTROAMPHETAMINE/AMPHETAMINE ER 10 MG CAP PO SCH (09:00)
[2019-11-30] MEDS ORDERED: INDAPAMIDE 1.25 MG TAB PO SCH (09:00)
--- NOTE | 2019-11-30 16:08 | Hospitalist Progress Note ---
Date of Service November 30, 2019 Assessment & Plan (1) Confusion: Called 911 from home and was noted to be confused Likely polysubstance abuse VS withdrawal from opiod On metaxalone, baclofen, fluoxetine, Adderall, oxycodone, OxyContin,, gabapentin, hydroxyzine, amitriptyline UDS positive for benzo and negative for opioid Denies any recent used of Valium with last time taking it 3 weeks ago because pain clinic does not want him to be on it Tylenol , salicylate and alcohol level unremarkable Pt is getting very paranoid Will do one to one observation (2) Polysubstance abuse: Has been on multiple substances which can cause mental impairment including metaxalone, baclofen, fluoxetine, Adderall, oxycodone, OxyContin, diazepam, gabapentin, hydroxyzine and amitriptyline Clinically seems to be withdrawing from narcotics VS overdose since renal function declines on admission Admitting physician discussed case with [facility] pain management in [place] pain clinic was advised to discontinue benzodiazepines and to decrease the dose of Baclofen I tried to call Dr. Chong that he said that prescribed him Baclofen 80mg HS, waiting for call back Continue to hold baclofen for now Decreased dose Hydroxyzine to 25mg Q6H May need to give smaller dose of lorazepam for agitation and tremor UDS was positive for Benzo and Negative for Opioid Continue with recommended dose of oxycodone IR 5 mg twice daily and OxyContin 20 mg twice daily as per pain clinic (3) Back pain: Has chronic back pain and goes to the pain clinic at [facility] in [place] Awaiting for possible surgery as the patient was mentioning Discussed with them and found out that he has been taking oxycodone IR 5 mg twice daily as needed and OxyContin 20 mg twice daily Continue the current dose of narcotics, Meloxicam Can use lidocaine patch (4) History of septic arthritis: No acute joint pain at this time and no acute infection Continue Keflex (5) NARINDER on CPAP: No acute issue Continue CPAP machine (6) DM type 2 (diabetes mellitus, type 2): Continue to hold metformin SSI with blood sugar check up ACHS Check hemoglobin A1c (7) Hypertension: Blood pressure is controlled (8) ADD (attention deficit disorder): Continue usual medications Chronic kidney disease Creatinine is 1.82 Received IVF Creatinine back to 1.1 Continue Monitor BMP DVT prophylaxis SCDs for now Will add heparin subq CODE STATUS Full Disposition Update provided to the daughter Raeann ( ) n Subjective Pt was seen and examined. Lying in bed with no distress Pt is very paranoid and thought someone is playing with his cellphone signal He is very adamant with any change in his med He said that he takes 80mg of baclofen at night He wants me to use his phone to call Dr. Chong from [facility] orthopedic since he is the one prescribes the baclofen to him Pain management does not wants him to be getting and Benzo He said that the last time he gets Benzo was 3 weeks ago, but his UDS was positive for Benzo he said that he is taking his narcotic, but his UDS negative for opiod Nurse said that pt does not believe I am a real physician He called the daughter and said that there giving him insulin He requested to transfer to the mental health unit Daughter said that 1yrs ago, he had similar presentation He was admitting back in October last year for confusion, acting funny and respiratory failure daughter said that he has history of substance dependence Physical Exam Physical Exam: General- No acute distress Head- atraumatic Eyes- PERRL, EOMI, ENT- oropharynx clear Neck- supple, no JVD Lungs- clear to auscultation Heart- regular rhythm; no murmur Abdomen- normal bowel sounds, soft, nontender Extremities- no calf tenderness Neuro- alert, oriented x 3; PERRL, EOMI; no facial palsy; no dysarthria, +tremor Skin- warm & dry Results & Data ([facility]) Vital Signs (Past 12 Hours) Vital Signs Temp Pulse Pulse Resp BP Pulse Ox 11/30/19 11:21 37.0 C 84 20 152/68 H 97 11/30/19 08:05 36.8 C 74 18 149/72 H 96 11/30/19 08:00 104 H (1) Back pain Back pain laterality: unspecified Back pain location: back pain in unspecified location Chronicity: unspecified Qualified Code(s): M54.9 - Dorsalgia, unspecified
[2019-11-30] MEDS: cephALEXin 500 MG CAP PO SCH (17:01)
[2019-11-30] MEDS: INDAPAMIDE 1.25 MG TAB PO SCH (17:02)
[2019-11-30] MEDS: SODIUM CHLORIDE 0.9% 500 ML IV SCH (19:13)
[2019-11-30] MEDS: HEPARIN SOD 5,000 UNIT/0.5 ML VIAL SQ SCH (21:28)
[2019-11-30] MEDS: AMLODIPINE BESYLATE 5 MG TAB PO SCH (21:30)
[2019-11-30] MEDS: FLUOXETINE HCL 20 MG CAP PO SCH (21:33)
[2019-11-30] MEDS: AMITRIPTYLINE HCL 25 MG TAB PO SCH (21:35)
[2019-11-30] MEDS: ASPIRIN 81 MG ECTAB PO SCH (21:36)
[2019-12-01] MEDS: cephALEXin 500 MG CAP PO SCH ×4 (00:17→16:56)
[2019-12-01] MEDS: OLANZapine 10 MG/2.1 ML SDV IM PRN (03:56)
[2019-12-01] MEDS: HEPARIN SOD 5,000 UNIT/0.5 ML VIAL SQ SCH ×3 (05:24→21:46)
[2019-12-01 06:53] LABS: Calcium 8.8 mg/dl (8.5-10.1); Creatinine Clr Calc Pharmacy 102.6 ml/min; Est GFR (African American) 108.7; Est GFR (Non-African American) 93.8; Potassium 3.8 mmol/L (3.5-5.1)
[2019-12-01 07:16] LABS: Estimated Average Glucose 148 mg/dl; Hemoglobin A1C 6.8 % (4.5-5.6)
[2019-12-01] MEDS: CALCIUM 600MG + VIT D 400 IU TAB PO SCH (07:53)
[2019-12-01] MEDS: DOCUSATE SODIUM 100 MG CAP PO SCH ×2 (07:53→20:21)
[2019-12-01] MEDS: METOPROLOL TARTRATE 50 MG TAB PO SCH ×2 (07:53→20:24)
[2019-12-01] MEDS: ROSUVASTATIN CALCIUM 20 MG TAB PO SCH (07:53)
[2019-12-01] MEDS: MULTIVITAMIN TAB PO SCH (07:53)
[2019-12-01] MEDS: FEXOFENADINE HCL 180 MG TAB PO SCH (07:53)
[2019-12-01] MEDS: OXYCODONE HCL 20 MG TABCR (OXYCONTIN) PO SCH ×2 (07:54→20:25)
[2019-12-01] MEDS: MELOXICAM 7.5 MG TAB PO SCH ×2 (07:54→20:21)
[2019-12-01] MEDS: lisinopriL 40 MG TAB PO SCH (07:54)
[2019-12-01] MEDS: METAXALONE 800 MG TABLET PO SCH ×3 (07:54→20:25)
[2019-12-01] MEDS: GABAPENTIN 400 MG CAP PO SCH ×3 (07:54→15:55)
[2019-12-01] MEDS: FLUTICASONE PROPIONATE NA SPR 16 GM BTL SCH (07:55)
[2019-12-01] MEDS: PIOGLITAZONE HCL 15 MG TAB PO SCH (07:56)
[2019-12-01] MEDS: INSULIN ASPART 100 UNITS/ML 3 ML PEN SC SCH ×4 (08:02→21:00)
--- NOTE | 2019-12-01 14:18 | Psychiatric Consultation ---
Date of Consultation December 01, 2019 Impression / Recommendations Impression 58 yo male with a history of depression, unclear indication for Adderall XR, admit for confusion in context of sleep apnea and multiple meds that can impact respiratory status, possible misuse of medication, unclear how much ETOH use. Delirium/encephalopathy still appears to be ongoing today though less agitation than yesterday. He seems to have some insight into the fact that his may have been precipitated by manic symptoms though drug-drug interactions could mimic. (1) Confusion: continue to hold Prozac and certainly stimulant given paranoia, doubt that low dose amitripytline would contribute to cycling. Zyprexa 2.5 could be increased if ineffective to 5 mg though not ideal agent for scheduled use given diabetes he states he would be may be agreeable to inpatient psychiatric care when medically cleared, will reassess mental status/follow as would still need to meet criteria when delirium resolved. If he would attempt to leave prior to medical clearance/reassessed, please initiate 302 warrant to hold. Risk Factors Assessment Do You Have Access To A Gun?: No Psych History Identifying Data 58 yo male admit 11/29 for MS change/paranoia. Consult by Dr. Smith. Chief Complaint "I think I need help like 302 to psych unit". History of Present Illness currently 1 on , initially presented to ED with back pain, concerns of intox ication due to drug drug interactions and/or withdrawing from substances. Told liaison stressors include his girlfriend moving out (now ex) and friends passing on or going to [facility]. He is disabled and struggles financially. Yesterday was reportedly threatening toward staff with a pen, states his food was poisoned, checking people's credentials. Received 2.5 mg Zyprexa IM. He denies currently. Daughter has expressed concern about ability to care for self at home. Prozac and Adderall XR held on admission as well as other medications that could be contributing to confusion. Today he states he was having SI last pm. Reports that his Adderall XR is for seasonal depression that worsens his fatigue (excessive daytime sleepiness). This time it made him "jittery", "like I was manic" though no history of such. ?grandiosity. Reported decreased sleep, anhedonia as can't play poker, guilt over reported in a friend's impaired driving and them going to [facility]. Lack of energy, concentration is "all over", states his appetite is down, anxiety 6/10. Past Psychiatric History Outpatient Services: med management and therapy at [facility], refused ROIs Previous Psych Admissions: none Do You Have Access To A Gun?: No History of Previous Suicide Attempt: No Past Medication Trials: unable to list Allergies Allergy/AdvReac Type Severity Reaction Status Date / Time simvastatin Allergy Unknown MUSCLE Verified 11/29/19 14:39 WEAKNESS,TINGLING Home Medications Home Medications Medication Instructions Recorded Confirmed Type amitriptyline 25 mg PO HS 11/03/18 11/29/19 History amlodipine 10 mg PO HS 11/03/18 11/29/19 History ammonium lactate 1 applic TOPICAL BID PRN 11/03/18 11/29/19 History aspirin [Aspir-Low] 81 mg PO HS 11/03/18 11/29/19 History baclofen 80 mg PO HS 11/03/18 11/29/19 History dextroamphetamine 5 mg PO DAILY PRN 11/03/18 11/29/19 History dextroamphetamine-amphetamine 30 mg PO [facility] 11/03/18 11/29/19 History docusate sodium [DOK] 100 mg PO HS 11/03/18 11/29/19 History fexofenadine [Carmen Allergy] 180 mg PO DAILY PRN 11/03/18 11/29/19 History fluoxetine 60 mg PO HS 11/03/18 11/29/19 History fluticasone propionate [Flonase 2 spray INTRANASAL HS 11/03/18 11/29/19 History Allergy Relief] gabapentin 400 mg PO TIDM 11/03/18 11/29/19 History guaifenesin [Mucinex] 600 mg PO Q12H PRN 11/03/18 11/29/19 History hydroxyzine HCl 25 - 50 mg PO Q6 PRN 11/03/18 11/29/19 History indapamide 2.5 mg PO QA 11/03/18 11/29/19 History ipratropium bromide 2 spray INTRANASAL QID PRN 11/03/18 11/29/19 History ketoconazole 1 applic TOPICAL BID 11/03/18 11/29/19 History liraglutide [Victoza 3-Toni] 1.2 mg SUBCUT [facility] 11/03/18 11/29/19 History lisinopril 40 mg PO HS 11/03/18 11/29/19 History meloxicam 7.5 mg PO BID 11/03/18 11/29/19 History metaxalone 800 mg PO TID 11/03/18 11/29/19 History metformin 850 mg PO BID 11/03/18 11/29/19 History metoprolol tartrate 50 mg PO BID 11/03/18 11/29/19 History multivitamin 1 tab PO QDD 11/03/18 11/29/19 History ondansetron HCl 4 mg PO Q6 PRN 11/03/18 11/29/19 History oxycodone 5 mg PO BID 11/03/18 11/29/19 History pioglitazone [Actos] 30 mg PO QAM 11/03/18 11/29/19 History rosuvastatin 20 mg PO QAM 11/03/18 11/29/19 History cephalexin 500 mg tablet 500 mg PO QID tab 08/17/19 11/29/19 History acetaminophen [Tylenol 8 Hour] 650 mg PO Q12H PRN 11/29/19 11/29/19 History calcium carbonate-vitamin D3 1 cap PO QAM 11/29/19 11/29/19 History [Calcium 600 + D(3)] oxycodone [OxyContin] 20 mg PO BID 11/29/19 11/29/19 History Family History children with bipolar disorder, brother with D&A Substance Abuse History denies illegal, suspicion of misuse of opiates and/or drug drug interactions with neurontin, baclofen, etc. Personal History Living Arrangements: Home Highest Grade Completed: Some College Employment Status: Disabled Marital Status: Number Of Children: 3 Beliefs That Will Affect Care: None History of Legal Problems: denied Psychological Trauma History Comment: denied but was victim of bullying Patient History Medical History ADD (attention deficit disorder) (Chronic) Chronic pain (Chronic) Diverticulosis (Chronic) DM type 2 (diabetes mellitus, type 2) (Chronic) Dyslipidemia (Chronic) Femur fracture (Chronic) "S/P repair" History of septic arthritis (Chronic) Hypertension (Chronic) NARINDER on CPAP (Chronic) Raynaud disease (Chronic) Surgical History H/O hand surgery (Chronic) History of carpal tunnel surgery (Chronic) S/P left knee arthroscopy (Chronic) Status post total knee replacement, right (Chronic) Family History Other Family history non-contributory Social History Preferred Language: [place] Communication Ability: Effective Sap Ppm Consultant Required: No Beliefs That Will Affect Care: None Current Living Situation: Alone Other Information That Helps Us Care for You: No Feels Safe at Home: Yes Safety Concerns: Feels Safe At This Time Smoking Status: Never smoker Second Hand Exposure: No ; Hx Alcohol Use: Yes Alcohol type: beer and hard liquor Hx Substance Use: No Physical Exam Psychiatric: Orientation: alert, oriented to person and oriented to place Apperance: appropriately groomed Eye Contact: + fair eye contact restless Speech: normal rate/rhythm/volume of speech Affect: + depressed affect, + anxious affect and + tearful affect Mood: + depressed mood and + irritable mood Thought Process: + concrete thought process Thought Content: + delusions Suicidal Thoughts: denies suicidal thoughts (currently but minimizing paranoia) Homicidal Thoughts: denies homicidal thoughts Hallucinations: no auditory hallucinations and no visual hallucinations Cog nition: + attention not intact Estimated Intelligence: consistent with education level Insight: + poor insight Judgement: + poor judgement Vital Signs (Past 24 Hours): Last Vital Signs Temp 37.2 C 12/01/19 11:06 Pulse 89 12/01/19 11:06 Resp 20 12/01/19 11:06 BP 170/88 H 12/01/19 11:06 Pulse Ox 96 12/01/19 11:06 Review of Systems All systems reviewed & are unremarkable except as noted in HPI & below Results & Data ([facility]) Medications Administered Amitriptyline HCl (Elavil) 25 mg PO HS [facility] Stop: 12/29/19 20:59 Last Admin: 11/30/19 21:35 Dose: 25 mg Documented by: [id number] Admin: 11/29/19 21:16 Dose: 25 mg Documented by: [id number] Amlodipine Besylate (Norvasc) 10 mg PO HS [facility] Stop: 12/29/19 20:59 Last Admin: 11/30/19 21:30 Dose: Not Given Documented by: [id number] Admin: 11/29/19 21:17 Dose: 10 mg Documented by: [id number] Amphetamine/Dextroamphetamine (Adderall Er) 30 mg PO QAM [facility] Stop: 12/30/19 08:59 Last Admin: 11/30/19 08:03 Dose: 30 mg Documented by: [id number] Aspirin (Ecotrin Ectab) 81 mg PO [facility] Stop: 12/29/19 20:59 Last Admin: 11/30/19 21:36 Dose: 81 mg Documented by: [id number] Admin: 11/29/19 21:17 Dose: 81 mg Documented by: [id number] Cephalexin HCl (Keflex) 500 mg PO Q6 [facility]; Protocol Stop: 01/11/20 17:59 Last Admin: 12/01/19 11:59 Dose: 500 mg Documented by: [id number] Admin: 12/01/19 05:24 Dose: 500 mg Documented by: [id number] Admin: 12/01/19 00:17 Dose: 500 mg Documented by: [id number] Admin: 11/30/19 17:01 Dose: 500 mg Documented by: [id number] Docusate Sodium (Colace) 100 mg PO BID [facility] Stop: 12/29/19 20:59 Last Admin: 12/01/19 07:53 Dose: 100 mg Documented by: [id number] Admin: 11/30/19 21:35 Dose: 100 mg Documented by: [id number] Admin: 11/30/19 07:53 Dose: 100 mg Documented by: [id number] Admin: 11/29/19 21:16 Dose: 100 mg Documented by: [id number] Fexofenadine HCl (Carmen) 180 mg PO DAILY [facility] Stop: 12/30/19 08:59 Last Admin: 12/01/19 07:53 Dose: 180 mg Documented by: [id number] Admin: 11/30/19 07:52 Dose: 180 mg Documented by: [id number] Fluoxetine HCl (Prozac) 60 mg PO [facility] Stop: 12/29/19 20:59 Last Admin: 11/30/19 21:33 Dose: Not Given Documented by: [id number] Admin: 11/29/19 21:16 Dose: 60 mg Documented by: [id number] Fluticasone Propionate (Flonase) 2 sprays NA DAILY [facility] Stop: 03/01/20 08:59 Last Admin: 12/01/19 07:55 Dose: 2 sprays Documented by: [id number] Admin: 11/30/19 07:53 Dose: 1 sprays Documented by: [id number] Gabapentin (Neurontin) 400 mg PO TIDM [facility] Stop: 12/29/19 16:59 Last Admin: 12/01/19 11:59 Dose: 400 mg Documented by: [id number] Admin: 12/01/19 07:54 Dose: 400 mg Documented by: [id number] Admin: 11/30/19 17:01 Dose: 400 mg Documented by: [id number] Admin: 11/30/19 12:12 Dose: 400 mg Documented by: [id number] Admin: 11/30/19 07:51 Dose: 400 mg Documented by: [id number] Admin: 11/29/19 18:07 Dose: 400 mg Documented by: [id number] Heparin Sodium (Porcine) (Heparin Sodium (Porcine)) 5,000 units SQ Q8 [facility] Stop: 12/30/19 21:59 Last Admin: 12/01/19 05:24 Dose: Not Given Documented by: [id number] Admin: 11/30/19 21:28 Dose: Not Given Documented by: [id number] Indapamide (Lozol) 2.5 mg PO DAILY@1800 [facility] Stop: 12/30/19 08:59 Last Admin: 11/30/19 17:02 Dose: 2.5 mg Documented by: [id number] Insulin Aspart (Novolog Flexpen) 0 units SC ACHS [facility] Stop: 12/29/19 20:59 Last Admin: 12/01/19 12:00 Dose: 7 units Documented by: [id number] Cosigned by: [id number] Admin: 12/01/19 08:02 Dose: 2 units Documented by: [id number] Cosigned by: [id number] Admin: 11/30/19 21:28 Dose: Not Given Documented by: [id number] Admin: 11/30/19 16:59 Dose: Not Given Documented by: [id number] Cosigned by: [id number] Admin: 11/30/19 12:51 Dose: 4 units Documented by: [id number] Cosigned by: [id number] Admin: 11/30/19 08:00 Dose: 5 units Documented by: [id number] Cosigned by: [id number] Admin: 11/29/19 21:13 Dose: Not Given Documented by: [id number] Cosigned by: [id number] Lisinopril (Zestril) 40 mg PO DAILY [facility] Stop: 12/30/19 08:59 Last Admin: 12/01/19 07:54 Dose: 40 mg Documented by: [id number] Admin: 11/30/19 07:55 Dose: 40 mg Documented by: [id number] Meloxicam (Mobic) 7.5 mg PO BID [facility] Stop: 12/29/19 20:59 Last Admin: 12/01/19 07:54 Dose: 7.5 mg Documented by: [id number] Admin: 11/30/19 21:36 Dose: 7.5 mg Documented by: [id number] Admin: 11/30/19 07:51 Dose: 7.5 mg Documented by: [id number] Admin: 11/29/19 21:20 Dose: 7.5 mg Documented by: [id number] Metaxalone (Skelaxin) 800 mg PO TID [facility] Stop: 12/29/19 20:59 Last Admin: 12/01/19 07:54 Dose: 800 mg Documented by: [id number] Admin: 11/30/19 21:33 Dose: Not Given Documented by: [id number] Admin: 11/30/19 12:53 Dose: 800 mg Documented by: [id number] Admin: 11/30/19 07:55 Dose: 800 mg Documented by: [id number] Admin: 11/29/19 21:18 Dose: 800 mg Documented by: [id number] Metoprolol Tartrate (Lopressor) 50 mg PO BID [facility] Stop: 12/29/19 20:59 Last Admin: 12/01/19 07:53 Dose: 50 mg Documented by: [id number] Admin: 11/30/19 21:35 Dose: 50 mg Documented by: [id number] Admin: 11/30/19 07:53 Dose: 50 mg Documented by: [id number] Admin: 11/29/19 21:17 Dose: 50 mg Documented by: [id number] Miscellaneous (Order Awaiting Action) 1 ea N/A QS [facility] Stop: 12/30/19 00:00 Last Admin: 12/01/19 08:00 Dose: Not Given Documented by: [id number] Admin: 12/01/19 00:17 Dose: Not Given Documented by: [id number] Admin: 11/30/19 15:20 Dose: Not Given Documented by: [id number] Admin: 11/30/19 07:50 Dose: Not Given Documented by: [id number] Admin: 11/30/19 01:13 Dose: Not Given Documented by: [id number] Multivitamins (Multivitamin Tab) 1 tab PO DAILY [facility] Stop: 12/30/19 08:59 Last Admin: 12/01/19 07:53 Dose: 1 tab Documented by: [id number] Admin: 11/30/19 07:52 Dose: 1 tab Documented by: [id number] Multivitamins/Minerals (Caltrate Plus) 1 tab PO DAILY [facility] Stop: 12/30/19 08:59 Last Admin: 12/01/19 07:53 Dose: 1 tab Documented by: [id number] Admin: 11/30/19 07:54 Dose: 1 tab Documented by: [id number] Olanzapine (Zyprexa) 2.5 mg IM Q4H PRN PRN Reason: Anxiety/Agitation Stop: 12/31/19 03:32 Last Admin: 12/01/19 03:56 Dose: 2.5 mg Documented by: [id number] Oxycodone HCl (Oxycontin) 20 mg PO Q12 [facility] Stop: 12/13/19 20:59 Last Admin: 12/01/19 07:54 Dose: 20 mg Documented by: [id number] Admin: 11/30/19 21:37 Dose: 20 mg Documented by: [id number] Admin: 11/30/19 07:59 Dose: 20 mg Documented by: [id number] Admin: 11/29/19 21:09 Dose: 20 mg Documented by: [id number] Pioglitazone HCl (Actos) 30 mg PO DAILY [facility] Stop: 12/30/19 08:59 Last Admin: 12/01/19 07:56 Dose: 30 mg Documented by: [id number] Admin: 11/30/19 07:52 Dose: 30 mg Documented by: [id number] Rosuvastatin Calcium (Crestor) 20 mg PO DAILY [facility] Stop: 12/30/19 08:59 Last Admin: 12/01/19 07:53 Dose: 20 mg Documented by: [id number] Admin: 11/30/19 07:53 Dose: 20 mg Documented by: [id number] Coding Level of Care Code 80194 [facility] Intl Hosp Care Lvl 2 Diagnoses Confusion R41.0
[2019-12-01] MEDS: INDAPAMIDE 1.25 MG TAB PO SCH (16:56)
--- NOTE | 2019-12-01 18:19 | Hospitalist Progress Note ---
Date of Service December 01, 2019 Assessment & Plan (1) Confusion: Called 911 from home and was noted to be confused Likely polysubstance abuse VS withdrawal from opiod On metaxalone, baclofen, fluoxetine, Adderall, oxycodone, OxyContin,, gabapentin, hydroxyzine, amitriptyline UDS positive for benzo and negative for opioid Denies any recent used of Valium with last time taking it 3 weeks ago because pain clinic does not want him to be on it Tylenol , salicylate and alcohol level unremarkable Will D/C one to one observation Psych on board and recommended to continue to hold Prozac and certainly stimulant that can lead to paranoia If he would attempt to leave prior to medical clearance/reassessed, please initiate 302 warrant to hold him as per Psych (2) Polysubstance abuse: Has been on multiple substances which can cause mental impairment including metaxalone, baclofen, fluoxetine, Adderall, oxycodone, OxyContin, diazepam, gabapentin, hydroxyzine and amitriptyline Clinically seems to be withdrawing from narcotics VS overdose since renal function declines on admission Admitting physician discussed case with [facility] pain management in [place] pain clinic was advised to discontinue benzodiazepines and to decrease the dose of Baclofen I tried to call Dr. Chong that he said that prescribed him Baclofen 80mg HS, waiting for call back Continue to hold baclofen for now Decreased dose Hydroxyzine to 25mg Q6H May need to give smaller dose of lorazepam for agitation and tremor UDS was positive for Benzo and Negative for Opioid Continue with recommended dose of oxycodone IR 5 mg twice daily and OxyContin 20 mg twice daily as per pain clinic Adderall, Amitriptyline and prozac on hold (3) Back pain: Has chronic back pain and goes to the pain clinic at [facility] in [facility] Awaiting for possible surgery as the patient was mentioning Discussed with them and found out that he has been taking oxycodone IR 5 mg twice daily as needed and OxyContin 20 mg twice daily Continue the current dose of narcotics, Meloxicam Will start Baclofen 20mg hs then titrate Can use lidocaine patch (4) History of septic arthritis: No acute joint pain at this time and no acute infection Continue Keflex (5) NARINDER on CPAP: No acute issue Continue CPAP machine (6) DM type 2 (diabetes mellitus, type 2): Continue to hold metformin SSI with blood sugar check up ACHS hemoglobin A1c 6.8 (7) Hypertension: Blood pressure is controlled (8) ADD (attention deficit disorder): Adderall placed on hold Chronic kidney disease Creatinine is 1.82 Received IVF Creatinine back to 1.1 Continue Monitor BMP DVT prophylaxis SCDs for now Will add heparin subq CODE STATUS Full Disposition Update provided to the daughter Raeann ( ) n Subjective Pt was seen and examined Lying in bed with no distress with 1 to 1 sitter Pt said that his brother today (cannot confirm that) He denies any suicidal thought Denies any chest pain, palpitation, dizziness and SOB Physical Exam Physical Exam: General- No acute distress Head- atraumatic Eyes- PERRL, EOMI, ENT- oropharynx clear Neck- supple, no JVD Lungs- clear to auscultation Heart- regular rhythm; no murmur Abdomen- normal bowel sounds, soft, nontender Extremities- no calf tenderness Neuro- alert, oriented x 3; PERRL, EOMI; no facial palsy; no dysarthria, +tremor Skin- warm & dry Results & Data ([facility]) Vital Signs (Past 12 Hours) Vital Signs Temp Pulse Resp BP Pulse Ox 12/01/19 14:53 36.8 C 92 H 18 153/79 H 95 12/01/19 11:06 37.2 C 89 20 170/88 H 96 12/01/19 07:08 36.8 C 85 20 166/85 H 96 (1) Back pain Back pain laterality: unspecified Back pain location: back pain in unspecified location Chronicity: unspecified Qualified Code(s): M54.9 - Dorsalgia, unspecified
[2019-12-01] MEDS: ASPIRIN 81 MG ECTAB PO SCH (20:21)
[2019-12-01] MEDS: AMLODIPINE BESYLATE 5 MG TAB PO SCH (20:24)
[2019-12-01] MEDS: BACLOFEN 20 MG TAB PO SCH (20:25)
[2019-12-02] MEDS: cephALEXin 500 MG CAP PO SCH ×5 (00:18→23:31)
[2019-12-02] MEDS: HEPARIN SOD 5,000 UNIT/0.5 ML VIAL SQ SCH ×3 (06:39→21:51)
[2019-12-02] MEDS: FLUTICASONE PROPIONATE NA SPR 16 GM BTL SCH (07:52)
[2019-12-02] MEDS: METAXALONE 800 MG TABLET PO SCH ×3 (07:53→21:02)
[2019-12-02] MEDS: INSULIN ASPART 100 UNITS/ML 3 ML PEN SC SCH ×4 (07:54→21:51)
[2019-12-02] MEDS: METOPROLOL TARTRATE 50 MG TAB PO SCH ×2 (07:54→21:01)
[2019-12-02] MEDS: DOCUSATE SODIUM 100 MG CAP PO SCH ×2 (07:54→21:01)
[2019-12-02] MEDS: OXYCODONE HCL 20 MG TABCR (OXYCONTIN) PO SCH ×2 (07:54→21:02)
[2019-12-02] MEDS: MELOXICAM 7.5 MG TAB PO SCH ×2 (07:55→21:02)
[2019-12-02] MEDS: CALCIUM 600MG + VIT D 400 IU TAB PO SCH (07:55)
[2019-12-02] MEDS: FEXOFENADINE HCL 180 MG TAB PO SCH (07:56)
[2019-12-02] MEDS: PIOGLITAZONE HCL 15 MG TAB PO SCH (07:56)
[2019-12-02] MEDS: lisinopriL 40 MG TAB PO SCH (07:57)
[2019-12-02] MEDS: MULTIVITAMIN TAB PO SCH (07:57)
[2019-12-02] MEDS: GABAPENTIN 400 MG CAP PO SCH ×3 (07:57→16:20)
[2019-12-02] MEDS: ROSUVASTATIN CALCIUM 20 MG TAB PO SCH (07:58)
[2019-12-02 10:01] LABS: 7-Aminoclonaz, Confirm NEGATIVE ng/mL (<25); Amphetamine Urine, Confirm 1830 ng/mL (<250); Hydro-Alp Ur, GC/MS NEGATIVE ng/mL (<25); Hydroxyethylflurazepam, Conf NEGATIVE ng/mL (<50); Hydroxytriazolam NEGATIVE ng/mL (<50); Lorazepam, Ur GC/MS NEGATIVE ng/mL (<50); Methamphetamine, Ur Confirm NEGATIVE ng/mL (<250); Nordiazepam, Confirm NEGATIVE ng/mL (<50); Oxazepam Ur, GC/MS 390 ng/mL (<50); Temazepam, Confirm 125 ng/mL (<50)
[2019-12-02] MEDS: OLANZapine 10 MG/2.1 ML SDV IM PRN ×2 (11:38→21:02)
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
[2019-12-02] MEDS: haloperidoL 0.5 MG TAB PO SCH ×2 (12:07→21:01)
[2019-12-02] MEDS: INDAPAMIDE 1.25 MG TAB PO SCH (17:04)
--- NOTE | 2019-12-02 20:20 | Psychiatric Progress Note ---
Date of Service December 02, 2019 Impression / Recommendations Impression 58 yo male with a history of depression, unclear indication for Adderall XR, admit for confusion in context of sleep apnea and multiple meds that can impact respiratory status, possible misuse of medication, unclear how much ETOH use. Delirium/encephalopathy still appears to be ongoing today though less agitation than yesterday. He seems to have some insight into the fact that his may have been precipitated by manic symptoms though drug-drug interactions could mimic. 2/2 plan--discussed would benefit from standing Haldol 0.5 mg BID, delirium ongoing, need to assess ambulatory status/need for rehab prior to consideration for inpatient psych Risk Factors Assessment Do You Have Access To A Gun?: No Interval History Chief Complaint "I thought we had to evacuate". Review of Systems Notes unable to complete due to MS Subjective Subjective Patient was seen & assessed and interval progress reviewed with liaison, floor nurse and Dr. Salazar. Seen as lunch arrived. Just prior patient misinterpreted alarm on his monitor and saw the snow and felt he had to leave. Later added that felt that [facility] person[facility] were missing and did not trust those telling him no need to leave. Became increasingly upset and ultimately required Zyprexa IM with security assist. Physical Exam Psychiatric Orientation: alert, oriented to person and oriented to place Apperance: + disheveled Eye Contact: + fair eye contact Motor Behavior: no abnormal motor movements fast speech Affect: + tearful affect and + labile affect Mood: + anxious mood Thought Process: + tangential thought process Thought Content: + preoccupation and + delusions Suicidal Thoughts: denies suicidal thoughts Homicidal Thoughts: denies homicidal thoughts Hallucinations: no auditory hallucinations and no visual hallucinations Insight: + poor insight Judgement: + poor judgement Vital Signs (Past 24 Hours) Last Vital Signs Temp 37.0 C 12/02/19 18:30 Pulse 110 H 12/02/19 18:30 Resp 20 12/02/19 18:30 BP 131/81 12/02/19 18:30 Pulse Ox 94 12/02/19 18:30 Results & Data Laboratory Results Laboratory Results - last 24 hr 11/29/19 12/01/19 12/02/19 14:20 20:22 11:35 POC Glucose 111 H 202 H U Amphetamines Confirm 1830 H U Methamphetamin Confrm NEGATIVE U OH-Alprazolam Confrm NEGATIVE 7-Amino Clonazepam NEGATIVE Ur Nordiazepam Confirm NEGATIVE U OH-ethylflurazepam NEGATIVE U Lorazepam Cnf GC/MS NEGATIVE U Oxazepam Confm GC/MS 390 H Ur Temazepam Confirm 125 H U OH-Triazolam Confirm NEGATIVE U OH-Midazolam Confirm NEGATIVE Drug Screen Comment SEE NOTE 12/02/19 16:25 POC Glucose 144 H U Amphetamines Confirm U Methamphetamin Confrm U OH-Alprazolam Confrm 7-Amino Clonazepam Ur Nordiazepam Confirm U OH-ethylflurazepam U Lorazepam Cnf GC/MS U Oxazepam Confm GC/MS Ur Temazepam Confirm U OH-Triazolam Confirm U OH-Midazolam Confirm Drug Screen Comment Current Inpatient Medications Current Inpatient Medications: Current Inpatient Medications Acetaminophen (Tylenol) 500 mg PO Q6H PRN PRN Reason: Pain Stop: 12/29/19 16:42 Amitriptyline HCl (Elavil) 25 mg PO HS [facility] Stop: 12/29/19 20:59 Last Admin: 11/30/19 21:35 Dose: 25 mg Documented by: Amlodipine Besylate (Norvasc) 10 mg PO HS [facility] Stop: 12/29/19 20:59 Last Admin: 12/01/19 20:24 Dose: 10 mg Documented by: Amphetamine/Dextroamphetamine (Adderall Er) 30 mg PO [facility] Stop: 12/30/19 08:59 Last Admin: 11/30/19 08:03 Dose: 30 mg Documented by: Aspirin (Ecotrin Ectab) 81 mg PO [facility] Stop: 12/29/19 20:59 Last Admin: 12/01/19 20:21 Dose: 81 mg Documented by: Baclofen (Lioresal) 20 mg PO HS [facility] Stop: 12/31/19 20:59 Last Admin: 12/01/19 20:25 Dose: 20 mg Documented by: Cephalexin HCl (Keflex) 500 mg PO Q6 [facility]; Protocol Stop: 01/11/20 17:59 Last Admin: 12/02/19 17:04 Dose: 500 mg Documented by: Dextrose (Dextrose 50%) 25 - 50 ml IV UD PRN; Protocol PRN Reason: Hypoglycemia Protocol Stop: 12/29/19 17:14 Docusate Sodium (Colace) 100 mg PO BID [facility] Stop: 02/29/20 20:59 Last Admin: 12/02/19 07:54 Dose: 100 mg Documented by: Fexofenadine HCl (Carmen) 180 mg PO DAILY [facility] Stop: 12/30/19 08:59 Last Admin: 12/02/19 07:56 Dose: 180 mg Documented by: Fluoxetine HCl (Prozac) 60 mg PO HS [facility] Stop: 12/29/19 20:59 Last Admin: 11/30/19 21:33 Dose: Not Given Documented by: Fluticasone Propionate (Flonase) 2 sprays NA DAILY [facility] Stop: 12/30/19 08:59 Last Admin: 12/02/19 07:52 Dose: 2 sprays Documented by: Gabapentin (Neurontin) 400 mg PO TIDM [facility] Stop: 12/29/19 16:59 Last Admin: 12/02/19 16:20 Dose: 400 mg Documented by: Glucagon (Glucagen) 1 mg SQ UD PRN; Protocol PRN Reason: Hypoglycemia Protocol Stop: 12/29/19 17:14 Glucose (Glucose 40%) 15 - 30 gm PO UD PRN; Protocol PRN Reason: Hypoglycemia Protocol Stop: 12/29/19 17:14 Glucose (Dex4 Glucose) 4 - 8 tabs PO UD PRN; Protocol PRN Reason: Hypoglycemia Protocol Stop: 12/29/19 17:14 Guaifenesin (Mucinex) 600 mg PO Q12H PRN PRN Reason: Congestion Stop: 12/29/19 16:42 Haloperidol (Haldol) 0.5 mg PO BID [facility] Stop: 01/01/20 11:44 Last Admin: 12/02/19 12:07 Dose: Not Given Documented by: Heparin Sodium (Porcine) (Heparin Sodium (Porcine)) 5,000 units SQ Q8 [facility] Stop: 12/30/19 21:59 Last Admin: 12/02/19 12:33 Dose: Not Given Documented by: Indapamide (Lozol) 2.5 mg PO DAILY@1800 [facility] Stop: 12/30/19 08:59 Last Admin: 12/02/19 17:04 Dose: 2.5 mg Documented by: Insulin Aspart (Novolog Flexpen) 0 units SC ACHS [facility] Stop: 12/29/19 20:59 Last Admin: 12/02/19 16:38 Dose: Not Given Documented by: Ipratropium [place] (Atrovent Nasal [place] 0.06%) 2 sprays LULU QID PRN PRN Reason: nasal symptoms Stop: 12/29/19 17:33 Lactic Acid (Amlactin) 1 gm EXT BID PRN PRN Reason: Dry Skin Stop: 12/29/19 16:42 Lisinopril (Zestril) 40 mg PO DAILY [facility] Stop: 12/30/19 08:59 Last Admin: 12/02/19 07:57 Dose: 40 mg Documented by: Meloxicam (Mobic) 7.5 mg PO BID [facility] Stop: 12/29/19 20:59 Last Admin: 12/02/19 07:55 Dose: 7.5 mg Documented by: Metaxalone (Skelaxin) 800 mg PO TID [facility] Stop: 12/29/19 20:59 Last Admin: 12/02/19 12:33 Dose: Not Given Documented by: Metoprolol Tartrate (Lopressor) 50 mg PO BID [facility] Stop: 12/29/19 20:59 Last Admin: 12/02/19 07:54 Dose: 50 mg Documented by: Miscellaneous (Order Awaiting Action) 1 ea N/A QS [facility] Stop: 12/30/19 00:00 Last Admin: 12/02/19 14:07 Dose: Not Given Documented by: Miscellaneous (Carbohydrates For Hypoglycemia) 15 - 30 gm PO UD PRN PRN Reason: Hypoglycemia Treatment Stop: 12/29/19 17:14 Multivitamins (Multivitamin Tab) 1 tab PO DAILY [facility] Stop: 12/30/19 08:59 Last Admin: 12/02/19 07:57 Dose: 1 tab Documented by: Multivitamins/Minerals (Caltrate Plus) 1 tab PO DAILY [facility] Stop: 12/30/19 08:59 Last Admin: 12/02/19 07:55 Dose: 1 tab Documented by: Olanzapine (Zyprexa) 2.5 mg IM Q4H PRN PRN Reason: Anxiety/Agitation Stop: 12/31/19 03:32 Last Admin: 12/02/19 11:38 Dose: 2.5 mg Documented by: Oxycodone HCl (Roxicodone Immediate Rel) 5 mg PO BID PRN PRN Reason: Pain Stop: 12/13/19 16:54 Oxycodone HCl (Oxycontin) 20 mg PO Q12 [facility] Stop: 12/13/19 20:59 Last Admin: 12/02/19 07:54 Dose: 20 mg Documented by: Pioglitazone HCl (Actos) 30 mg PO DAILY [facility] Stop: 12/30/19 08:59 Last Admin: 12/02/19 07:56 Dose: 30 mg Documented by: Rosuvastatin Calcium (Crestor) 20 mg PO DAILY [facility] Stop: 12/30/19 08:59 Last Admin: 12/02/19 07:58 Dose: 20 mg Documented by:
[2019-12-02] MEDS: BACLOFEN 20 MG TAB PO SCH (21:01)
[2019-12-02] MEDS: AMLODIPINE BESYLATE 5 MG TAB PO SCH (21:01)
[2019-12-02] MEDS: ASPIRIN 81 MG ECTAB PO SCH (21:02)
[2019-12-03] MEDS: cephALEXin 500 MG CAP PO SCH ×2 (05:45→13:31)
[2019-12-03] MEDS: HEPARIN SOD 5,000 UNIT/0.5 ML VIAL SQ SCH ×2 (05:46→13:40)
[2019-12-03] MEDS: FLUTICASONE PROPIONATE NA SPR 16 GM BTL SCH (08:47)
[2019-12-03] MEDS: GABAPENTIN 400 MG CAP PO SCH ×2 (08:47→13:30)
[2019-12-03] MEDS: METAXALONE 800 MG TABLET PO SCH ×2 (08:47→13:30)
[2019-12-03] MEDS: DOCUSATE SODIUM 100 MG CAP PO SCH (08:47)
[2019-12-03] MEDS: MULTIVITAMIN TAB PO SCH (08:48)
[2019-12-03] MEDS: MELOXICAM 7.5 MG TAB PO SCH (08:48)
[2019-12-03] MEDS: METOPROLOL TARTRATE 50 MG TAB PO SCH (08:48)
[2019-12-03] MEDS: FEXOFENADINE HCL 180 MG TAB PO SCH (08:48)
[2019-12-03] MEDS: lisinopriL 40 MG TAB PO SCH (08:48)
[2019-12-03] MEDS: ROSUVASTATIN CALCIUM 20 MG TAB PO SCH (08:49)
[2019-12-03] MEDS: CALCIUM 600MG + VIT D 400 IU TAB PO SCH (08:51)
[2019-12-03] MEDS: PIOGLITAZONE HCL 15 MG TAB PO SCH (08:51)
[2019-12-03] MEDS: haloperidoL 0.5 MG TAB PO SCH (08:51)
[2019-12-03] MEDS: INSULIN ASPART 100 UNITS/ML 3 ML PEN SC SCH ×2 (08:53→13:39)
[2019-12-03] MEDS: OXYCODONE HCL 20 MG TABCR (OXYCONTIN) PO SCH (09:14)
--- NOTE | 2019-12-03 14:09 | Hospitalist Progress Note ---
Date of Service December 03, 2019 Assessment & Plan (1) Confusion: Toxic encephalopathy Called 911 from home and was noted to be confused Likely polysubstance abuse VS withdrawal from opiod On metaxalone, baclofen, fluoxetine, Adderall, oxycodone, OxyContin,, gabapentin, hydroxyzine, amitriptyline UDS positive for benzo and negative for opioid Denies any recent used of Valium with last time taking it 3 weeks ago because pain clinic does not want him to be on it Tylenol , salicylate and alcohol level unremarkable Continue one to one observation Psych on board and recommended to continue to hold Prozac and certainly stimulant that can lead to paranoia If he would attempt to leave prior to medical clearance/reassessed, please initiate 302 warrant to hold him as per Psych case discussed to psych and recommended to add Haldol 0.5mg BID yesterday Denies any alcohol use Continue BID Haldol Pt will benefit for inpatient psych treatment From a medical standpoint, pt is stable to transfer to the psych unit (2) Polysubstance abuse: Has been on multiple substances which can cause mental impairment including metaxalone, baclofen, fluoxetine, Adderall, oxycodone, OxyContin, diazepam, gabapentin, hydroxyzine and amitriptyline Clinically seems to be withdrawing from narcotics VS overdose since renal function declines on admission Admitting physician discussed case with [facility] pain management in [place] pain clinic was advised to discontinue benzodiazepines and to decrease the dose of Baclofen I tried to call Dr. Chong that he said that prescribed him Baclofen 80mg HS, waiting for call back Case Disscussed with Dr. Chong and agreed to start on baclofen 20mg HS then titrate to 40mg HS Decreased dose Hydroxyzine to 25mg Q6H prn May need to give smaller dose of lorazepam for agitation and tremor UDS was positive for Benzo and Negative for Opioid Continue with recommended dose of oxycodone IR 5 mg twice daily and OxyContin 20 mg twice daily as per pain clinic Adderall, Amitriptyline and prozac on hold (3) Back pain: Has chronic back pain and goes to the pain clinic at [facility] in [place] Awaiting for possible surgery as the patient was mentioning Discussed with them and found out that he has been taking oxycodone IR 5 mg twice daily as needed and OxyContin 20 mg twice daily Continue the current dose of narcotics, Meloxicam Will increase Baclofen to 30mg hs then titrate Can use lidocaine patch (4) History of septic arthritis: No acute joint pain at this time and no acute infection Continue Keflex (5) NARINDER on CPAP: No acute issue Continue CPAP machine (6) DM type 2 (diabetes mellitus, type 2): Continue to hold metformin SSI with blood sugar check up ACHS hemoglobin A1c 6.8 (7) Hypertension: Blood pressure is controlled (8) ADD (attention deficit disorder): Adderall placed on hold Chronic kidney disease Creatinine is 1.82 Received IVF Creatinine back to 1.1 Continue Monitor BMP DVT prophylaxis SCDs for now On heparin drip CODE STATUS Full Disposition Update provided to the daughter Raeann ( ) From a medical standpoint, pt is stable to transfer to the psych unit Subjective Pt was seen and examined Sitting at the edge of the bed with no distress Pt is coloring currently Pt is not agitated but requiring to reorient him constantly He is able to ambulate with assistance to use the bathroom Denies any suicidal thought, chest pain and palpitation Physical Exam Physical Exam: General- confused Head- atraumatic Eyes- PERRL, EOMI, ENT- oropharynx clear Neck- supple, no JVD Lungs- clear to auscultation Heart- regular rhythm; no murmur Abdomen- normal bowel sounds, soft, nontender Extremities- no calf tenderness Neuro- alert, confused, PERRL, EOMI; no facial palsy; no dysarthria, +tremor Skin- warm & dry Results & Data ([facility]) Vital Signs (Past 12 Hours) Vital Signs Temp Pulse Pulse Resp BP Pulse Ox 12/03/19 11:08 36.7 C 83 18 156/78 H 93 12/03/19 08:00 107 H 12/03/19 07:08 36.7 C 88 20 130/82 92 12/03/19 03:15 36.7 C 76 20 123/78 94 (1) Back pain Back pain laterality: unspecified Back pain location: back pain in unspecified location Chronicity: unspecified Qualified Code(s): M54.9 - Dorsalgia, unspecified
--- NOTE | 2019-12-03 15:39 | Psychiatric Progress Note ---
Date of Service December 03, 2019 Impression / Recommendations Impression 58 yo male with a history of depression, unclear indication for Adderall XR, admit for confusion in context of sleep apnea and multiple meds that can impact respiratory status, possible misuse of medication, unclear how much ETOH use. Delirium/encephalopathy still appears to be ongoing today though less agitation than yesterday. He seems to have some insight into the fact that his may have been precipitated by manic symptoms though drug-drug interactions could mimic. 2/2 plan--discussed would benefit from standing Haldol 0.5 mg BID, delirium ongoing, need to assess ambulatory status/need for rehab prior to consideration for inpatient psych 2/3 delirium essentially cleared, ongoing paranoid delusions, 302 involuntary commitment for transfer to inpatient psych, [facility]. Patient is aware. Examiner's statement completed. Risk Factors Assessment Do You Have Access To A Gun?: No Interval History Chief Complaint "I don't know about this place, I don't trust them, I don't belong". Review of Systems Notes patient unable to complete. Subjective Subjective Patient was seen & assessed and interval progress reviewed with liaison. Chart review shows additional Zyprexa IM last pm for ongoing paranoia. Today he is saying that he couldn't possibly sign himself into the hospital as unsure what it's like there and if "the same thing". Physical Exam Mental Examination alert, minimal restless, baseline tremor, appears anxious with distressed affect, multiple paranoid delusions, thoughts are disorganized, no perceptual disturbance at this time, denies SI but unclear on HI, did not appear to be responding to internal stimuli. Vital Signs (Past 24 Hours) Last Vital Signs Temp 37.2 C 12/03/19 14:54 Pulse 103 H 12/03/19 14:54 Resp 18 12/03/19 14:54 BP 132/89 12/03/19 14:54 Pulse Ox 91 12/03/19 14:54 Results & Data Laboratory Results Laboratory Results - last 24 hr 12/02/19 12/02/19 12/03/19 16:25 20:23 07:33 POC Glucose 144 H 112 H 138 H 12/03/19 11:40 POC Glucose 119 H Current Inpatient Medications Current Inpatient Medications: Current Inpatient Medications Acetaminophen (Tylenol) 500 mg PO Q6H PRN PRN Reason: Pain Stop: 12/29/19 16:42 Amitriptyline HCl (Elavil) 25 mg PO [facility] Stop: 12/29/19 20:59 Last Admin: 11/30/19 21:35 Dose: 25 mg Documented by: Amlodipine Besylate (Norvasc) 10 mg PO HS [facility] Stop: 12/29/19 20:59 Last Admin: 12/02/19 21:01 Dose: 10 mg Documented by: Amphetamine/Dextroamphetamine ([facility]) [facility] Stop: 12/30/19 08:59 Last Admin: 11/30/19 08:03 Dose: 30 mg Documented by: Aspirin (Ecotrin Ectab) 81 mg PO [facility] Stop: 12/29/19 20:59 Last Admin: 12/02/19 21:02 Dose: 81 mg Documented by: Baclofen (Lioresal) 20 mg PO [facility] Stop: 12/31/19 20:59 Last Admin: 12/02/19 21:01 Dose: 20 mg Documented by: Cephalexin HCl (Keflex) 500 mg PO Q6 [facility]; Protocol Stop: 01/11/20 17:59 Last Admin: 12/03/19 13:31 Dose: 500 mg Documented by: Dextrose (Dextrose 50%) 25 - 50 ml IV UD PRN; Protocol PRN Reason: Hypoglycemia Protocol Stop: 12/29/19 17:14 Docusate Sodium (Colace) 100 mg PO BID [facility] Stop: 12/29/19 20:59 Last Admin: 12/03/19 08:47 Dose: 100 mg Documented by: Fexofenadine HCl (Carmen) 180 mg PO DAILY [facility] Stop: 12/30/19 08:59 Last Admin: 12/03/19 08:48 Dose: 180 mg Documented by: Fluoxetine HCl (Prozac) 60 mg PO [facility] Stop: 12/29/19 20:59 Last Admin: 11/30/19 21:33 Dose: Not Given Documented by: Fluticasone Propionate (Flonase) 2 sprays NA DAILY [facility] Stop: 12/30/19 08:59 Last Admin: 12/03/19 08:47 Dose: 2 sprays Documented by: Gabapentin (Neurontin) 400 mg PO TIDM [facility] Stop: 12/29/19 16:59 Last Admin: 12/03/19 13:30 Dose: 400 mg Documented by: Glucagon (Glucagen) 1 mg SQ UD PRN; Protocol PRN Reason: Hypoglycemia Protocol Stop: 12/29/19 17:14 Glucose (Glucose 40%) 15 - 30 gm PO UD PRN; Protocol PRN Reason: Hypoglycemia Protocol Stop: 12/29/19 17:14 Glucose (Dex4 Glucose) 4 - 8 tabs PO UD PRN; Protocol PRN Reason: Hypoglycemia Protocol Stop: 12/29/19 17:14 Guaifenesin (Mucinex) 600 mg PO Q12H PRN PRN Reason: Congestion Stop: 12/29/19 16:42 Haloperidol (Haldol) 0.5 mg PO BID [facility] Stop: 01/01/20 11:44 Last Admin: 12/03/19 08:51 Dose: 0.5 mg Documented by: Heparin Sodium (Porcine) (Heparin Sodium (Porcine)) 5,000 units SQ Q8 [facility] Stop: 12/30/19 21:59 Last Admin: 12/03/19 13:40 Dose: Not Given Documented by: Indapamide (Lozol) 2.5 mg PO DAILY@1800 [facility] Stop: 12/30/19 08:59 Last Admin: 12/02/19 17:04 Dose: 2.5 mg Documented by: Insulin Aspart (Novolog Flexpen) 0 units SC ACHS [facility] Stop: 12/29/19 20:59 Last Admin: 12/03/19 13:39 Dose: Not Given Documented by: Ipratropium [place] (Atrovent Nasal [place] 0.06%) 2 sprays L[facility] QID PRN PRN Reason: nasal symptoms Stop: 12/29/19 17:33 Lactic Acid (Amlactin) 1 gm EXT BID PRN PRN Reason: Dry Skin Stop: 12/29/19 16:42 Lisinopril (Zestril) 40 mg PO DAILY [facility] Stop: 12/30/19 08:59 Last Admin: 12/03/19 08:48 Dose: 40 mg Documented by: Meloxicam (Mobic) 7.5 mg PO BID [facility] Stop: 12/29/19 20:59 Last Admin: 12/03/19 08:48 Dose: 7.5 mg Documented by: Metaxalone (Skelaxin) 800 mg PO TID [facility] Stop: 12/29/19 20:59 Last Admin: 12/03/19 13:30 Dose: 800 mg Documented by: Metoprolol Tartrate (Lopressor) 50 mg PO BID [facility] Stop: 12/29/19 20:59 Last Admin: 12/03/19 08:48 Dose: 50 mg Documented by: Miscellaneous (Carbohydrates For Hypoglycemia) 15 - 30 gm PO UD PRN PRN Reason: Hypoglycemia Treatment Stop: 12/29/19 17:14 Multivitamins (Multivitamin Tab) 1 tab PO DAILY [facility] Stop: 12/30/19 08:59 Last Admin: 12/03/19 08:48 Dose: 1 tab Documented by: Multivitamins/Minerals (Caltrate Plus) 1 tab PO DAILY [facility] Stop: 12/30/19 08:59 Last Admin: 12/03/19 08:51 Dose: 1 tab Documented by: Olanzapine (Zyprexa) 2.5 mg IM Q4H PRN PRN Reason: Anxiety/Agitation Stop: 12/31/19 03:32 Last Admin: 12/02/19 21:02 Dose: 2.5 mg Documented by: Oxycodone HCl (Roxicodone Immediate Rel) 5 mg PO BID PRN PRN Reason: Pain Stop: 12/13/19 16:54 Oxycodone HCl (Oxycontin) 20 mg PO Q12 [facility] Stop: 12/13/19 20:59 Last Admin: 12/03/19 09:14 Dose: 20 mg Documented by: Pioglitazone HCl (Actos) 30 mg PO DAILY [facility] Stop: 12/30/19 08:59 Last Admin: 12/03/19 08:51 Dose: 30 mg Documented by: Rosuvastatin Calcium (Crestor) 20 mg PO DAILY [facility] Stop: 12/30/19 08:59 Last Admin: 12/03/19 08:49 Dose: 20 mg Documented by:
--- NOTE | 2019-12-03 17:00 | Discharge Summary ---
Date of Service December 03, 2019 Admission HPI Per Admitting Provider He is a 58-year-old obese male with significant past medical history of chronic back pain on narcotics and muscle relaxant with history of polysubstance abuse/overdose, NARINDER on CPAP, history of septic arthritis, type 2 diabetes, hypertension, ADD and Raynaud's disease called 911 today and was noted to have change in mental status with abnormal behavior and was brought into the emergency room for further evaluation. He was seen in the pain clinic on 22 November at the time he is short-acting narcotic was decreased to 5 mg twice daily and continued with his long-acting oxycodone to 20 twice daily and he was advised not to take anymore benzodiazepines. Apparently he has been taking 60 mg baclofen at nighttime daily and was advised not to take it. During examination he was restless but otherwise alert awake and oriented. He mentioned that the home health nurse has not been coming to see him for the last 2 days but he has not overdosed any medications. His pain was worse this morning and he was acting abnormally. Denies any fever and/or chills, any cough or phlegm, any chest pain or palpitation, any shortness of breath, any abdominal pain nausea no vomiting and any problem with his urine and her bowel habit. Admission Exam Per Admitting Provider Physical Exam: Lying in bed with acute distress secondary to abnormal movements of the upper and lower extremities with tremor Constitutional: well developed, well nourished, + acute distress, + obese and + altered mental status; not intoxicated appearing Eyes: PERRL, conjunctivae normal, anicteric sclerae ENMT: external ear and nose normal, oropharynx normal Neck: trachea midline, no thyromegaly Respiratory: normal respiratory effort Auscultation: lungs clear to auscultation bilaterally Cardiovascular: regular rate and regular rhythm Heart Sounds: no murmur Gastrointestinal:Inspection/Auscultation: abdomen normal to inspection and normal bowel sounds Percussion/Palpation: abdomen soft; abdomen nontender Musculoskeletal: No acute arthritis in any joints Neurologic: moves all extremities; no focal motor deficits Speech / Cognition: normal speech Motor/Sensory: + tremor Lymphatic: no cervical or axillary lymphadenopathy Principal Diagnosis Confusion Toxic encephalopathy Polysubstance abuse Back pain History of septic arthritis NARINDER on CPAP DM type 2 (diabetes mellitus, type 2): Hypertension ADD (attention deficit disorder Discharge Exam General- confused Head- atraumatic Eyes- PERRL, EOMI, ENT- oropharynx clear Neck- supple, no JVD Lungs- clear to auscultation Heart- regular rhythm; no murmur Abdomen- normal bowel sounds, soft, nontender Extremities- no calf tenderness Neuro- alert, confused, PERRL, EOMI; no facial palsy; no dysarthria, +tremor Skin- warm & dry Discharge Data Allergies Allergy/AdvReac Type Severity Reaction Status Date / Time simvastatin Allergy Unknown MUSCLE Verified 11/29/19 14:39 WEAKNESS,TINGLING Consultations 11/29/19 14:07 ED Decision to Admit Stat 11/30/19 14:29 Consult Psychiatry Routine Ordered Studies 11/29/19 12:34 CT head/brain wo con Stat XR chest 1V portable HISTORY: Altered mental status. COMPARISON: Chest 11/29/2019. FINDINGS: There are low lung volumes. The heart remains mildly enlarged. No pleural effusions. No pneumothorax. No focal lung consolidations to suggest pneumonia. No evidence for pulmonary edema. IMPRESSION: Stable mild cardiomegaly. ACT 112: Negative or not required by law. Electronically signed by: Omero Noe M.D. 11/29/2019 1:29 PM Dictated: 11/29/19 1322 Transcribed: 11/29/[address] head/brain wo con CLINICAL HISTORY: Acute change in mental status COMPARISON STUDY: November 03, 2018 TECHNIQUE: Axial CT of the brain is performed from the vertex to the skull base. IV contrast was not administered for this examination. A dose lowering technique was utilized adhering to the principles of ALARA. CT DOSE: 1228.53 mGy.cm FINDINGS: No intra or extra-axial mass lesions are visualized. There is no CT evidence of acute cortical infarction. There is no evidence of midline shift. There is no acute hemorrhage. No calvarial fractures are visualized. There are patchy white matter hypodensities likely on a small vessel basis. There is no evidence of pathologic ventricular dilatation. There is no evidence of acute sinusitis IMPRESSION: No acute intracranial findings ACT 112: Negative or not required by law. Electronically signed by: Emery Burroughs M.D. 11/29/2019 1:25 PM Dictated: 11/29/19 1318 Transcribed: 11/29/19 1318 Hospital Course (1) Confusion: Toxic encephalopathy Called 911 from home and was noted to be confused Likely polysubstance abuse VS withdrawal from opiod On metaxalone, baclofen, fluoxetine, Adderall, oxycodone, OxyContin,, gabapentin, hydroxyzine, amitriptyline UDS positive for benzo and negative for opioid Denies any recent used of Valium with last time taking it 3 weeks ago because pain clinic does not want him to be on it Tylenol , salicylate and alcohol level unremarkable Continue one to one observation Psych on board and recommended to continue to hold Prozac and certainly stimulant that can lead to paranoia If he would attempt to leave prior to medical clearance/reassessed, please initiate 302 warrant to hold him as per Psych case discussed to psych and recommended to add Haldol 0.5mg BID yesterday Denies any alcohol use Continue BID Haldol Pt will benefit for inpatient psych treatment From a medical standpoint, pt is stable to transfer to the psych unit (2) Polysubstance abuse: Has been on multiple substances which can cause mental impairment including metaxalone, baclofen, fluoxetine, Adderall, oxycodone, OxyContin, diazepam, gabapentin, hydroxyzine and amitriptyline Clinically seems to be withdrawing from narcotics VS overdose since renal function declines on admission Admitting physician discussed case with [facility] in [place] pain clinic was advised to discontinue benzodiazepines and to decrease the dose of Baclofen I tried to call Dr. Chong that he said that prescribed him Baclofen 80mg HS, waiting for call back Case Disscussed with Dr. Chong and agreed to start on baclofen 20mg HS then titrate to 40mg HS Decreased dose Hydroxyzine to 25mg Q6H prn May need to give smaller dose of lorazepam for agitation and tremor UDS was positive for Benzo and Negative for Opioid Continue with recommended dose of oxycodone IR 5 mg twice daily and OxyContin 20 mg twice daily as per pain clinic Adderall, Amitriptyline and prozac on hold (3) Back pain: Has chronic back pain and goes to the pain clinic at [facility] in [place] Awaiting for possible surgery as the patient was mentioning Discussed with them and found out that he has been taking oxycodone IR 5 mg twice daily as needed and OxyContin 20 mg twice daily Continue the current dose of narcotics, Meloxicam Will increase Baclofen to 30mg hs then titrate Can use lidocaine patch (4) History of septic arthritis: No acute joint pain at this time and no acute infection Continue Keflex (5) NARINDER on CPAP: No acute issue Continue CPAP machine (6) DM type 2 (diabetes mellitus, type 2): Continue to hold metformin SSI with blood sugar check up ACHS hemoglobin A1c 6.8 (7) Hypertension: Blood pressure is controlled (8) ADD (attention deficit disorder): Adderall placed on hold Chronic kidney disease Creatinine is 1.82 Received IVF Creatinine back to 1.1 Continue Monitor BMP DVT prophylaxis SCDs for now On heparin drip CODE STATUS Full Disposition Update provided to the daughter Raeann ( ) From a medical standpoint, pt is stable to transfer to the psych unit Total Time Total Time Spent Total Time Spent (In Minutes): 35 minutes Total Time Includes: Examination of the Patient, Discharge Planning, Medication Reconciliation, Communication With Other Providers and Other Discharge Plan Discharge Items Patient Disposition: Transfer Behavioral Health Fac Reason For Visit: CHANGE IN MENTAL STATUS,POLYSUBSTANCE WITHDRAWAL/I Discharge Diagnosis: Confusion Toxic encephalopathy Polysubstance abuse Back pain History of septic arthritis NARINDER on CPAP DM type 2 (diabetes mellitus, type 2): Hypertension ADD (attention deficit disorder Activity: Resume your previous activity Non-emergency contact: Primary Care Provider Call non-emergency contact if: you have any medication questions Follow-up/Referrals: Rich Otoole MD [Primary Care Provider] - Diet: Carb Consistent or DM2 Addtl Attending Provider Instructions: Discharge to the mental health unit Follow up with your primary care provider once discharge from rehab Continue physical and occupational therapy Fall precaution Continue CPAP at night Pending Studies at Discharge: No Stand-Alone Forms: My [facility] Medications and DC Order Prescriptions: Continued ammonium lactate 12 % Lotion 1 applic TOPICAL BID PRN (Reason: Dry Skin) RF: 0 gabapentin 400 mg Capsule 400 mg PO TIDM RF: 0 meloxicam 7.5 mg Tablet 7.5 mg PO BID RF: 0 amlodipine 10 mg Tablet 10 mg PO HS RF: 0 metoprolol tartrate 50 mg Tablet 50 mg PO BID RF: 0 pioglitazone [Actos] 30 mg Tablet 30 mg PO QAM RF: 0 lisinopril 40 mg Tablet 40 mg PO HS RF: 0 fluticasone propionate [Flonase Allergy Relief] 50 mcg/actuation Hatteras,Suspension 2 spray INTRANASAL HS RF: 0 docusate sodium [DOK] 100 mg Tablet 100 mg PO HS RF: 0 oxycodone 5 mg Tablet 5 mg PO BID RF: 0 metaxalone 800 mg Tablet 800 mg PO TID RF: 0 ketoconazole 2 % Shampoo 1 applic topical BID RF: 0 ondansetron HCl 4 mg Tablet 4 mg PO Q6 PRN (Reason: Nausea) RF: 0 metformin 850 mg Tablet 850 mg PO BID RF: 0 fexofenadine [Carmen Allergy] 180 mg Tablet 180 mg PO DAILY PRN (Reason: Allergy Symptoms) RF: 0 aspirin [Aspir-Low] 81 mg Tablet,Delayed Release (Dr/Ec) 81 mg PO HS RF: 0 ipratropium bromide 0.03 % Hatteras,Non-Aerosol 2 spray INTRANASAL QID PRN (Reason: Runny Nose) RF: 0 rosuvastatin 20 mg Tablet 20 mg PO QAM RF: 0 Victoza 3-Toni 0.6 mg/0.1 mL (18 mg/3 mL) Pen Injector 1.2 mg SUBCUT QAM RF: 0 guaifenesin [Mucinex] 600 mg Tablet Extended Release 12hr 600 mg PO Q12H PRN (Reason: Congestion) RF: 0 multivitamin Tablet 1 tab PO QDD RF: 0 indapamide 2.5 mg Tablet 2.5 mg PO QAM RF: 0 cephalexin 500 mg tablet 500 mg PO QID RF: 0 Calcium 600 + D(3) 600 mg calcium- 200 unit Capsule 1 cap PO QAM RF: 0 acetaminophen [Tylenol 8 Hour] 650 mg Tablet Extended Release 650 mg PO Q12H PRN (Reason: Pain) RF: 0 oxycodone [OxyContin] 20 mg Tablet,Oral Only,Ext.Rel.12 Hr 20 mg PO BID RF: 0 Changed baclofen 20 mg Tablet 40 mg PO HS Qty: 0 RF: 0 Discontinued dextroamphetamine 5 mg Tablet 5 mg PO DAILY PRN (Reason: AFTERNOON SLEEPINESS) RF: 0 amitriptyline 25 mg Tablet 25 mg PO HS RF: 0 fluoxetine 20 mg Tablet 60 mg PO HS RF: 0 dextroamphetamine-amphetamine 30 mg Capsule,Extended Release 24hr 30 mg PO QAM RF: 0 hydroxyzine HCl 25 mg Tablet 25 - 50 mg PO Q6 PRN (Reason: ITCHY) RF: 0 Discharge Orders: Discharge Order (Routine); Ordered 12/03/19 Ordered By: Britt Santo/Other Patient Handouts: Diabetes Healthy Meals Admission Data Admit Date/Time: 11/29/19 14:56 Attending Provider: Britt Salazar Admit Provider: Sol Pizarro Primary Care Provider: Rich Otoole Other Providers: Sol Pizarro ; [place] ; Maryuri Sanchez Other Interventions: Discharge Summary Assessment (RN) Last Done: 12/03/19 16:28 DC Date/Time DO NOT enter until pt leaves facility: 12/03/19 16:41
== END 2019-12-03 16:41 | DRG 896 ==
LOC: ED 11:58 → SUATTDRO 14:56 → 2S 14:56

== ENCOUNTER 2019-12-03 16:09 | Inpatient (IN) ==
[2019-12-03] MEDS ORDERED: FEXOFENADINE HCL 180 MG TAB PO PRN (17:10)
[2019-12-03] MEDS ORDERED: AMMONIUM LACTATE 12% LOTION 225 GM BTL EXT PRN (17:10)
[2019-12-03] MEDS ORDERED: NON-FORMULARY MEDICATION (Acetaminophen [Tylenol 8 Hour] 650 MG) PO PRN (17:10)
[2019-12-03] MEDS ORDERED: guaiFENesin 600 MG TABCR PO PRN (17:10)
[2019-12-03] MEDS ORDERED: MAGNESIUM HYDROXIDE SUSP 30 ML UDC PO PRN (17:10)
[2019-12-03] MEDS ORDERED: ALUMINUM/MAGNESIUM SUSP 30 ML UDC PO PRN (17:10)
[2019-12-03] MEDS ORDERED: BISMUTH SUBSALICYLATE PER ML OMNICELL CHARGE PO PRN (17:10)
[2019-12-03] MEDS ORDERED: SODIUM CHLORIDE 0.65% NA SOLN 45 ML (OCEAN) PRN (17:10)
[2019-12-03] MEDS ORDERED: ONDANSETRON 4 MG TAB PO PRN (17:10)
[2019-12-03] MEDS ORDERED: OLANZapine 10 MG/2.1 ML SDV IM PRN (17:11)
[2019-12-03] MEDS ORDERED: NON-FORMULARY MEDICATION (Ipratropium Bromide 2 SPRAYS) INTNAS PRN (17:15)
[2019-12-03] MEDS: GABAPENTIN 400 MG CAP PO SCH (18:14)
[2019-12-03] MEDS: MULTIVITAMIN TAB PO SCH (18:14)
[2019-12-03] MEDS ORDERED: PHARMACY GLYCEMIC MGMT CONSULT PRN (18:50)
[2019-12-03] MEDS: cephALEXin 500 MG CAP PO SCH (20:23)
[2019-12-03] MEDS: haloperidoL 1 MG TAB PO SCH (20:23)
[2019-12-03] MEDS: METFORMIN HCL 850 MG TAB PO SCH (20:23)
[2019-12-03] MEDS: METOPROLOL TARTRATE 50 MG TAB PO SCH (20:27)
[2019-12-03] MEDS: METAXALONE 800 MG TABLET PO SCH (20:28)
[2019-12-03] MEDS: MELOXICAM 7.5 MG TAB PO SCH (20:28)
[2019-12-03] MEDS: DOCUSATE SODIUM 100 MG CAP PO SCH (20:28)
[2019-12-03] MEDS: ASPIRIN 81 MG ECTAB PO SCH (20:28)
[2019-12-03] MEDS: AMLODIPINE BESYLATE 5 MG TAB PO SCH (20:29)
[2019-12-03] MEDS: lisinopriL 40 MG TAB PO SCH (20:30)
[2019-12-03] MEDS: FLUTICASONE PROPIONATE NA SPR 16 GM BTL SCH (20:35)
[2019-12-03] MEDS: haloperidoL 1 MG TAB PO PRN (20:35)
[2019-12-03] MEDS: OXYCODONE HCL 20 MG TABCR (OXYCONTIN) PO SCH (20:54)
[2019-12-03] MEDS ORDERED: BACLOFEN 20 MG TAB PO SCH (22:00)
[2019-12-03] MEDS ORDERED: BACLOFEN 10 MG TAB PO SCH ×2 (22:00)
[2019-12-04] MEDS: haloperidoL 1 MG TAB PO PRN (01:50)
[2019-12-04] MEDS ORDERED: NON-FORMULARY MEDICATION (Liraglutide [Victoza 3-Pak] 1.2 MG) SQ SCH (09:00)
--- NOTE | 2019-12-04 09:37 | Pharmacy Report ---
Glycemic Control Consultation - Date of Service December 04, 2019 - Scope Scope: Glycemic Pharmacist consulted by Dr Rodriguez on 12/03 for glycemic control and to write orders per [facility] inpatient glycemic control protocol - Objective Weight: 97.7 kg Accuchecks BSG (last 24hrs): 12/03/19 20:17 POC Glucose 131 H - Recent Pertinent Medications Outpatient Anti-diabetic Regimen: * metformin 850 mg bid, actos 30 mg qAM, victoza * A1c = 6.8 % 12/01/19 The patient is currently receiving: * Basal insulin: none * Correctional Insulin: Novolog Correction per scale ACHS Goal Range: Low 110 mg/dL - High 140 mg/dL Correction Factor: 30 mg/dL/unit * Prandial insulin: Per carb ratio of 1 unit per -- grams CHO consumed * Oral Agents: home agents restarted last evening (metformin/actos) Risk Factors for Insulin Resistance: * Diet: T2DM - Assessment & Plan Assessment & Plan: ASSESSMENT: * 58 year old, type 2 diabetic managed on metformin, actos and victoza at home. Pharmacy consulted for glycemic management * Home oral diabetic medications started last evening. Novolog ordered with correctional factor only * Spoke with nurse and patient sleeping this morning therefore no AM BSG checked - at lunch BSG 141 mg/dL. Talked with nurse to give po diabetic medications with lunch since patient planning to eat and no CR ordered PLAN FOR INPATIENT GLYCEMIC CONTROL: * Holding outpatient oral diabetes medications - restarted 2/3 pm; metformin and actos * Basal insulin * Lantus- hold * Bolus insulin * NovoLog per scale ACHS or Q6hrs while NPO * Goal Range: Low 110 mg/dL - High 140 mg/dL * Correction Factor: 30 mg/dL/unit * Nutritional / Prandial insulin per carb ratio of 1 unit per -- grams CHO consumed * Please note that the plan above was derived based on current level of insulin resistance and hospital stress. These recommendations are appropriate for inpatient admission only. Plan of care upon discharge will need to be reassessed to avoid potential outpatient hypo/hyperglycemia. Thank you.
[2019-12-04] MEDS: INSULIN ASPART 100 UNITS/ML 3 ML PEN SC SCH ×4 (11:24→21:44)
[2019-12-04] MEDS: ROSUVASTATIN CALCIUM 20 MG TAB PO SCH (11:30)
[2019-12-04] MEDS: METFORMIN HCL 850 MG TAB PO SCH ×2 (11:30→21:50)
[2019-12-04] MEDS: CALCIUM 600MG + VIT D 400 IU TAB PO SCH (11:30)
[2019-12-04] MEDS: PIOGLITAZONE HCL 15 MG TAB PO SCH (11:30)
[2019-12-04] MEDS: INDAPAMIDE 1.25 MG TAB PO SCH (11:31)
[2019-12-04] MEDS: METOPROLOL TARTRATE 50 MG TAB PO SCH ×2 (11:31→21:53)
[2019-12-04] MEDS: cephALEXin 500 MG CAP PO SCH ×4 (11:31→21:52)
[2019-12-04] MEDS: MELOXICAM 7.5 MG TAB PO SCH ×2 (11:32→21:53)
[2019-12-04] MEDS: METAXALONE 800 MG TABLET PO SCH ×3 (11:32→21:54)
[2019-12-04] MEDS: GABAPENTIN 400 MG CAP PO SCH ×3 (11:32→17:37)
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
[2019-12-04] MEDS: OXYCODONE HCL 20 MG TABCR (OXYCONTIN) PO SCH ×2 (11:34→21:20)
[2019-12-04] MEDS: haloperidoL 1 MG TAB PO SCH ×2 (11:34→21:51)
[2019-12-04] MEDS: ACETAMINOPHEN 325 MG TAB PO PRN (11:46)
[2019-12-04] MEDS ORDERED: OLANZAPINE 2.5 MG TAB PO PRN (12:18)
[2019-12-04] MEDS: MULTIVITAMIN TAB PO SCH (17:37)
[2019-12-04] MEDS: ASPIRIN 81 MG ECTAB PO SCH (21:54)
[2019-12-04] MEDS: DOCUSATE SODIUM 100 MG CAP PO SCH (21:54)
[2019-12-04] MEDS: FLUTICASONE PROPIONATE NA SPR 16 GM BTL SCH (21:55)
[2019-12-04] MEDS: AMLODIPINE BESYLATE 5 MG TAB PO SCH (21:56)
[2019-12-04] MEDS: lisinopriL 40 MG TAB PO SCH (21:58)
[2019-12-04] MEDS: BACLOFEN 20 MG TAB PO SCH (21:58)
[2019-12-05 08:11] LABS: Chol HDL Ratio 2; Cholesterol 142 mg/dl (0-200); HDL Cholesterol 59 mg/dl; LDL Cholesterol Calculated 57 mg/dl; Triglycerides 132 mg/dl (0-150); VLDL Cholesterol 26 mg/dl
[2019-12-05] MEDS: METAXALONE 800 MG TABLET PO SCH ×3 (08:49→22:04)
[2019-12-05] MEDS: INDAPAMIDE 1.25 MG TAB PO SCH (08:50)
[2019-12-05] MEDS: GABAPENTIN 400 MG CAP PO SCH ×3 (08:50→17:30)
[2019-12-05] MEDS: MELOXICAM 7.5 MG TAB PO SCH ×2 (08:50→22:04)
[2019-12-05] MEDS: METFORMIN HCL 850 MG TAB PO SCH ×2 (08:51→22:03)
[2019-12-05] MEDS: METOPROLOL TARTRATE 50 MG TAB PO SCH ×2 (08:51→22:04)
[2019-12-05] MEDS: ROSUVASTATIN CALCIUM 20 MG TAB PO SCH (08:51)
[2019-12-05] MEDS: cephALEXin 500 MG CAP PO SCH ×4 (08:51→22:04)
[2019-12-05] MEDS: CALCIUM 600MG + VIT D 400 IU TAB PO SCH (08:52)
[2019-12-05] MEDS: PIOGLITAZONE HCL 15 MG TAB PO SCH (08:52)
[2019-12-05] MEDS: haloperidoL 1 MG TAB PO SCH ×2 (08:54→22:03)
[2019-12-05] MEDS: OXYCODONE HCL 20 MG TABCR (OXYCONTIN) PO SCH ×2 (08:59→22:04)
[2019-12-05] MEDS: INSULIN ASPART 100 UNITS/ML 3 ML PEN SC SCH ×4 (09:42→21:59)
--- NOTE | 2019-12-05 13:06 | XRay Report ---
XR foot LT min 3V routine CLINICAL HISTORY: 59 years-old Male presenting with left big toe wound. TECHNIQUE: Frontal, oblique, and lateral views of the left foot were obtained. COMPARISON: None. FINDINGS: Underlying osteopenia suspected. A bandage overlies the medial aspect of the first toe. There may be a minimal soft tissue defect at the level of the interphalangeal joint. There is no subjacent osseous erosion or periosteal reaction. Chronic appearing mild subluxation of the interphalangeal joint of t he first toe with lateral displacement of the distal phalanx relative to the head of the proximal pha lanx. There is associated mild joint space loss at the interphalangeal joint. This is likely on a deg enerative basis. No acute fracture or acute malalignment. Enthesophyte at the origin of the plantar f ascia. Trace osteophytosis at the anteromedial ankle mortise. No radiographic soft tissue abnormality . IMPRESSION: 1. Minimal soft tissue defect along the medial aspect of the first toe at the level of the interphal angeal joint. No radiographic evidence of osteomyelitis. 2. No acute osseous injury. 3. Degenerative changes as above. ACT 112: Negative or not required by law. Electronically signed by: Fercho Mayers M.D. 12/05/2019 1:04 PM
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
[2019-12-05] MEDS: MULTIVITAMIN TAB PO SCH (17:30)
[2019-12-05] MEDS: AMLODIPINE BESYLATE 5 MG TAB PO SCH (22:05)
[2019-12-05] MEDS: BACLOFEN 20 MG TAB PO SCH (22:05)
[2019-12-05] MEDS: FLUTICASONE PROPIONATE NA SPR 16 GM BTL SCH (22:05)
[2019-12-05] MEDS: ASPIRIN 81 MG ECTAB PO SCH (22:05)
[2019-12-05] MEDS: DOCUSATE SODIUM 100 MG CAP PO SCH (22:05)
[2019-12-05] MEDS: lisinopriL 40 MG TAB PO SCH (22:06)
[2019-12-06] MEDS: CALCIUM 600MG + VIT D 400 IU TAB PO SCH (08:53)
[2019-12-06] MEDS: ROSUVASTATIN CALCIUM 20 MG TAB PO SCH (08:53)
[2019-12-06] MEDS: cephALEXin 500 MG CAP PO SCH ×4 (08:54→21:55)
[2019-12-06] MEDS: haloperidoL 1 MG TAB PO SCH ×2 (08:54→21:55)
[2019-12-06] MEDS: METFORMIN HCL 850 MG TAB PO SCH ×2 (08:54→21:54)
[2019-12-06] MEDS: INDAPAMIDE 1.25 MG TAB PO SCH (08:56)
[2019-12-06] MEDS: METOPROLOL TARTRATE 50 MG TAB PO SCH ×2 (08:56→21:56)
[2019-12-06] MEDS: METAXALONE 800 MG TABLET PO SCH ×3 (08:57→21:56)
[2019-12-06] MEDS: OXYCODONE HCL 20 MG TABCR (OXYCONTIN) PO SCH ×2 (08:57→21:56)
[2019-12-06] MEDS: MELOXICAM 7.5 MG TAB PO SCH ×2 (08:57→21:56)
[2019-12-06] MEDS: GABAPENTIN 400 MG CAP PO SCH ×3 (08:57→17:40)
[2019-12-06] MEDS: PIOGLITAZONE HCL 15 MG TAB PO SCH (09:00)
[2019-12-06] MEDS: INSULIN ASPART 100 UNITS/ML 3 ML PEN SC SCH ×4 (09:30→21:25)
--- NOTE | 2019-12-06 09:50 | Pharmacy Report ---
Pharmacy Glycemic Short Note 2 - Date of Service December 06, 2019 - Glycemic Short BSG Results (Last 24 hours): 12/05/19 12/05/19 12/05/19 12:03 17:36 21:08 POC Glucose 117 H 114 H 219 H 12/06/19 07:51 POC Glucose 158 H OUTPATIENT ANTIDIABETIC REGIMEN: * Metformin 850 mg PO BID, Pioglitazone 30 mg PO qAM, Liraglutide 1.2mg SQ weekly * A1c = 6.8 % 12/01/19 ASSESSMENT: 12/06 * Blood sugars well controlled om oral agents and correctional insulin while inpatient, no changes needed at this time 12/04 * 58 year old, type 2 diabetic managed on metformin, pioglitazone and liraglutide SQ at home. Pharmacy consulted for glycemic management * Home oral diabetic medications started last evening. Novolog ordered with correctional factor only * Spoke with nurse and patient sleeping this morning therefore no AM BSG checked - at lunch BSG 141 mg/dL. Talked with nurse to give po diabetic medications with lunch since patient planning to eat and no CR ordered PLAN FOR INPATIENT GLYCEMIC CONTROL: * Metformin 850mg PO BID * Pioglitazone 30mg PO daily * Bolus insulin * NovoLog per scale ACHS or Q6hrs while NPO * Goal Range: Low 110 mg/dL - High 140 mg/dL * Correction Factor: 30 mg/dL/unit Thank you.
--- NOTE | 2019-12-06 11:09 | Wound Consultation ---
Date of Consultation December 05, 2019 History of Present Illness Reason for Consultation: Left medial great toe wound Attending Physician: Maryuri Sanchez MD Allergies Allergy/AdvReac Type Severity Reaction Status Date / Time simvastatin Allergy Unknown MUSCLE Verified 11/29/19 14:39 WEAKNESS,TINGLING Home Medications Home Medications Medication Instructions Recorded Confirmed Type Victoza 3-Toni 1.2 mg SUBCUT QAM 11/03/18 12/04/19 History amlodipine [Norvasc] 10 mg PO HS 11/03/18 12/04/19 History ammonium lactate 1 applic TOPICAL BID PRN 11/03/18 12/04/19 History aspirin [Aspir-Low] 81 mg PO HS 11/03/18 12/04/19 History docusate sodium [DOK] 100 mg PO BID 11/03/18 12/04/19 History fexofenadine [Carmen Allergy] 180 mg PO DAILY PRN 11/03/18 12/04/19 History fluticasone propionate [Flonase 1 spray INTRANASAL BID PRN 11/03/18 12/04/19 History Allergy Relief] gabapentin 400 mg PO TID 11/03/18 12/04/19 History guaifenesin [Mucinex] 600 mg PO Q12H PRN 11/03/18 12/04/19 History indapamide 2.5 mg PO HS 11/03/18 12/04/19 History ipratropium bromide 2 spray INTRANASAL QID PRN 11/03/18 12/04/19 History ketoconazole 1 applic TOPICAL WK 11/03/18 12/04/19 History lisinopril 40 mg PO HS 11/03/18 12/04/19 History meloxicam 7.5 mg PO BID 11/03/18 12/04/19 History metaxalone 800 mg PO TID 11/03/18 12/04/19 History metformin 850 mg PO BID 11/03/18 12/04/19 History metoprolol tartrate 50 mg PO BID 11/03/18 12/04/19 History multivitamin 1 tab PO QDD 11/03/18 12/04/19 History oxycodone 5 mg PO BID PRN 11/03/18 12/04/19 History pioglitazone [Actos] 30 mg PO QAM 11/03/18 12/04/19 History acetaminophen [Tylenol 8 Hour] 650 mg PO DIRECTED PRN 11/29/19 12/04/19 History baclofen 60 mg PO HS 12/04/19 12/04/19 History cephalexin [Keflex] 500 mg PO QID 12/04/19 12/04/19 History dextroamphetamine-amphetamine 5 mg PO DAILY PRN 12/04/19 12/04/19 History dextroamphetamine-amphetamine 30 mg PO DAILY 12/04/19 12/04/19 History [Adderall XR] fluoxetine 60 mg PO DAILY 12/04/19 12/04/19 History hydroxyzine HCl See Rx Instructions .ROUTE 12/04/19 12/04/19 History .COMPLEX PRN ondansetron HCl [Zofran] 8 mg PO DIRECTED PRN 12/04/19 12/04/19 History oxycodone [OxyContin] 20 mg PO BID PRN 12/04/19 12/04/19 History rosuvastatin [Crestor] 20 mg PO DAILY 12/04/19 12/04/19 History Patient History Medical History (Updated 12/04/19 @ 13:09 by Maryuri Sanchez MD) Benzodiazepine abuse Chronic pain (Chronic) Delirium Diverticulosis (Chronic) DM type 2 (diabetes mellitus, type 2) (Chronic) Dyslipidemia (Chronic) Femur fracture (Chronic) "S/P repair" History of septic arthritis (Chronic) Hypertension (Chronic) Mood disorder Opiate abuse, continuous NARINDER on CPAP (Chronic) Psychosis Raynaud disease (Chronic) Surgical History H/O hand surgery (Chronic) History of carpal tunnel surgery (Chronic) S/P left knee arthroscopy (Chronic) Status post total knee replacement, right (Chronic) Social History Preferred Language: Algerian Communication Ability: Effective Communication Ability Comment: paranoia Nurses Superintendent Required: No Beliefs That Will Affect Care: None Current Living Situation: Alone Feels Safe at Home: No Is there a partner from a previous relationship who is making you feel unsafe now?: No Smoking Status: Former smoker Second Hand Exposure: No ; Hx Alcohol Use: Yes Alcohol type: beer and hard liquor Hx Substance Use: No Results & Data Vital Signs (Past 12 Hours) Vital Signs Temp Pulse Resp BP 12/06/19 09:04 78 121/80 12/06/19 06:48 70 150/86 H 12/06/19 06:47 36.6 C 67 18 130/82 PG Care Time/CCT Total # of Minutes Spent Total Time Spent with Patient: Total time spent is greater than 50% in coordination of care (as documented) at patient's floor/unit and/or counseling patient: Coding
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
[2019-12-06] MEDS: FLUOXETINE HCL 20 MG CAP PO SCH (12:08)
[2019-12-06] MEDS: OXYCODONE HCL IR 5 MG TAB (IMMEDIATE RELEASE) PO PRN (13:18)
[2019-12-06] MEDS: ACETAMINOPHEN 325 MG TAB PO PRN (13:19)
[2019-12-06] MEDS: MULTIVITAMIN TAB PO SCH (17:39)
[2019-12-06] MEDS: FLUTICASONE PROPIONATE NA SPR 16 GM BTL SCH (21:57)
[2019-12-06] MEDS: ASPIRIN 81 MG ECTAB PO SCH (21:57)
[2019-12-06] MEDS: DOCUSATE SODIUM 100 MG CAP PO SCH (21:57)
[2019-12-06] MEDS: lisinopriL 40 MG TAB PO SCH (21:58)
[2019-12-06] MEDS: BACLOFEN 20 MG TAB PO SCH (21:59)
[2019-12-06] MEDS: AMLODIPINE BESYLATE 5 MG TAB PO SCH (21:59)
[2019-12-07] MEDS: PIOGLITAZONE HCL 15 MG TAB PO SCH (09:09)
[2019-12-07] MEDS: CALCIUM 600MG + VIT D 400 IU TAB PO SCH (09:10)
[2019-12-07] MEDS: INDAPAMIDE 1.25 MG TAB PO SCH (09:10)
[2019-12-07] MEDS: METOPROLOL TARTRATE 50 MG TAB PO SCH ×2 (09:10→21:58)
[2019-12-07] MEDS: METFORMIN HCL 850 MG TAB PO SCH ×2 (09:10→21:55)
[2019-12-07] MEDS: cephALEXin 500 MG CAP PO SCH ×4 (09:10→21:56)
[2019-12-07] MEDS: ROSUVASTATIN CALCIUM 20 MG TAB PO SCH (09:10)
[2019-12-07] MEDS: MELOXICAM 7.5 MG TAB PO SCH ×2 (09:11→21:58)
[2019-12-07] MEDS: GABAPENTIN 400 MG CAP PO SCH ×3 (09:11→17:28)
[2019-12-07] MEDS: FLUOXETINE HCL 20 MG CAP PO SCH (09:11)
[2019-12-07] MEDS: METAXALONE 800 MG TABLET PO SCH ×3 (09:11→22:00)
[2019-12-07] MEDS: OXYCODONE HCL 20 MG TABCR (OXYCONTIN) PO SCH ×2 (09:13→22:06)
[2019-12-07] MEDS: haloperidoL 1 MG TAB PO SCH ×2 (09:13→22:06)
[2019-12-07] MEDS: INSULIN ASPART 100 UNITS/ML 3 ML PEN SC SCH ×4 (09:43→21:48)
--- NOTE | 2019-12-07 11:41 | Communication Note ---
Date of Service: December 07, 2019 Spoke with patient's psychiatric prescriber from [facility], Kelly Russell PA-C regarding coordination of care. Pt has signed an GHAZAL to allow for conversations to discuss his treatment. Kelly reports the patient was first seen by her in 09/2018 upon request from patient's sleep medicine provider. It was reported that the patient had been initiated on Adderall by his sleep medicine provider to combat fatigue and daytime sedation related to his pain medicines. Pt had previously been taking 20mg of Adderall daily, but titration was recommended in the winter months to combat worsening sedation. It was stated that his sleep medicine providers requested a psychiatric prescriber manage doses beyond 20mg daily. The office reportedly discussed the case, and the patient was seen at [facility] only for the winter months of 2017. When dose was reduced back to 20mg in the Spring, the patient returned to his sleep medicine doctor for management. Pt returned to [facility] in 09/2019, and dose of Adderall was increased to 30mg daily - as it had been the previous winter. Kelly was updated regarding confusion/delirium leading to medical admission. Psychotropic medications were held until delirium resolved, and that Adderall is not being resumed at this time. Kelly agreed that based on this history the patient should not be resumed on stimulant medications, and that she will defer to sleep medicine for management in the future. She was updated on current medication regimen: haloperidol 1mg BID and fluoxetine 20mg. She is planning to see patient at their office as scheduled on 12/20/2019. She is requesting medical records be faxed to their office for her review prior to the patient's follow-up appointment. Encouraged her to call with any additional questions or concerns.
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
[2019-12-07] MEDS: MULTIVITAMIN TAB PO SCH (17:28)
[2019-12-07] MEDS: ACETAMINOPHEN 325 MG TAB PO PRN (17:35)
[2019-12-07] MEDS: OXYCODONE HCL IR 5 MG TAB (IMMEDIATE RELEASE) PO PRN (17:37)
[2019-12-07] MEDS: ASPIRIN 81 MG ECTAB PO SCH (22:01)
[2019-12-07] MEDS: FLUTICASONE PROPIONATE NA SPR 16 GM BTL SCH (22:01)
[2019-12-07] MEDS: DOCUSATE SODIUM 100 MG CAP PO SCH (22:01)
[2019-12-07] MEDS: BACLOFEN 20 MG TAB PO SCH (22:02)
[2019-12-07] MEDS: AMLODIPINE BESYLATE 5 MG TAB PO SCH (22:03)
[2019-12-07] MEDS: lisinopriL 40 MG TAB PO SCH (22:04)
[2019-12-08] MEDS: METAXALONE 800 MG TABLET PO SCH ×2 (09:20→13:15)
[2019-12-08] MEDS: FLUOXETINE HCL 20 MG CAP PO SCH (09:20)
[2019-12-08] MEDS: INDAPAMIDE 1.25 MG TAB PO SCH (09:21)
[2019-12-08] MEDS: GABAPENTIN 400 MG CAP PO SCH ×2 (09:21→13:14)
[2019-12-08] MEDS: cephALEXin 500 MG CAP PO SCH ×2 (09:21→13:14)
[2019-12-08] MEDS: METOPROLOL TARTRATE 50 MG TAB PO SCH (09:21)
[2019-12-08] MEDS: METFORMIN HCL 850 MG TAB PO SCH (09:22)
[2019-12-08] MEDS: ROSUVASTATIN CALCIUM 20 MG TAB PO SCH (09:22)
[2019-12-08] MEDS: CALCIUM 600MG + VIT D 400 IU TAB PO SCH (09:22)
[2019-12-08] MEDS: PIOGLITAZONE HCL 15 MG TAB PO SCH (09:22)
[2019-12-08] MEDS: OXYCODONE HCL 20 MG TABCR (OXYCONTIN) PO SCH (09:26)
[2019-12-08] MEDS: haloperidoL 1 MG TAB PO SCH (09:27)
[2019-12-08] MEDS: INSULIN ASPART 100 UNITS/ML 3 ML PEN SC SCH ×2 (09:35→13:37)
[2019-12-08] MEDS: MELOXICAM 7.5 MG TAB PO SCH (09:36)
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
== END 2019-12-08 13:30 | disposition home health service (06) | DRG 897 ==
LOC: 3S 16:49

== ENCOUNTER 2020-05-19 16:33 | Inpatient (IN) ==
--- NOTE | 2020-05-19 17:08 | Emergency Department Note ---
ED Visit Note Patient seen in conjunction with Dr. Miranda, we are discussing patient and I will place orders. .
[2020-05-19] MEDS ORDERED: SODIUM CHLORIDE 0.9% 1000ML 2,000 ML IV ONE (17:17)
[2020-05-19 17:39] LABS: Basophils # (auto) 0.01 K/uL (0-0.2); Basophils % (auto) 0.1 %; Hematocrit (blood only) 34.2 % (42-52); Hemoglobin 10.8 g/dL (14.0-18.0); Immature Granulocytes # (auto) 0.02 K/uL (0.00-0.02); Immature Granulocytes % (auto) 0.2 %; Lymphocytes # (auto) 0.77 K/uL (1.2-3.4); Lymphocytes % (auto) 7.6 %; Mean Corpuscular Hemoglobin 24.4 pg (25-34); Mean Corpuscular Hgb Conc 31.6 g/dL (32-36); Mean Corpuscular Volume 77.2 fL (80-100); Mean Platelet Volume 10.6 fL (7.4-10.4); Monocytes # (auto) 0.82 K/uL (0.11-0.59); Monocytes % (auto) 8.1 %; Neutrophils # (auto) 8.54 K/uL (1.4-6.5); Platelet Count 240 K/uL (130-400); RDW Standard Deviation 45.3 fL (36.4-46.3); Red Blood Count 4.43 M/uL (4.7-6.1); White Blood Count 10.16 K/uL (4.8-10.8)
--- NOTE | 2020-05-19 17:40 | XRay Report ---
SINGLE VIEW CHEST CLINICAL HISTORY: Change in mental status. FINDINGS: An AP, portable, upright chest radiograph is compared to study dated 11/29/2019. The cardiom ediastinal silhouette is unremarkable. There is mild chronic elevation of right hemidiaphragm. Atelec tasis is noted at the lung bases. No airspace consolidation or large pleural effusion is identified. No pneumothorax is seen. The bony thorax is grossly intact. IMPRESSION: No active disease in the chest. ACT 112: Negative or not required by law. Electronically signed by: Rommel Rodríguez M.D. 05/19/2020 5:39 PM
--- NOTE | 2020-05-19 17:42 | XRay Report ---
LEFT KNEE 2 VIEWS CLINICAL HISTORY: Fall. Left knee pain. FINDINGS: AP and crosstable lateral views of the left knee are compared to study dated 05/23/2017. The skeletal structures are osteopenic. Chronic posttraumatic deformity and postoperative change is seen in the proximal tibia. There is an acute and minimally distracted oblique fracture through the dista l femoral metadiaphysis. There is apex volar angulation and mild overriding of fragments. There is al so mild lateral distraction of the distal fragment by approximately 1 cm. The proximal tibia and fibu la appear intact. Advanced tricompartmental degenerative joint space narrowing is noted with large ma rginal osteophytes. There is a knee joint effusion, as well as soft tissue swelling around the knee. IMPRESSION: Distal femoral fracture as above with associated joint effusion and soft tissue edema. Electronically signed by: Rommel Rodríguez M.D. 05/19/2020 5:41 PM
--- NOTE | 2020-05-19 17:45 | Emergency Department Note ---
History of Present Illness General Chief complaint: Altered Mental Status Stated complaint: AMS, BRUSING TO FACE, Time Seen by Provider: 05/19/20 16:35 Source: patient and EMS Mode of arrival: EMS Limitations: altered mental status History of Present Illness Provider complaint: Altered mental status Onset (ago): unknown This is a 59-year-old male brought in from home via EMS due to altered mental status. Patient has home health that comes and visits him on Tuesday, Tuesday, and Tuesday,. Patient last seen in his usual state of health on Tuesday. The home health nurse did come for her visit this morning, however he did not answer the door or let her in. After some time and for an unknown reason EMS was contacted many hours later. EMS found the patient in his house to be altered w ith evidence of facial trauma. Patient seemed confused, but was awake and could follow commands. They did check blood sugar prehospital which was 131. Patient cannot provide much in the way of details or history. Patient does have a complicated past medical history including diabetes, psychosis, and substance abuse. On my exam patient did not know why he was here, denied any pain or trouble breathing. Patient was confused to some questions of orientation however knew where he was and knew who the president was. Patient seen in conjunction with the resident, Dr. Upton. Pt seen during a time of high acuity and national emergency pandemic while wearing PPE. Home Medications Home Medications Medication Instructions Recorded Confirmed Type Victoza 3-Toni 1.2 mg SUBCUT QAM 11/03/18 05/19/20 History amlodipine [Norvasc] 10 mg PO HS 11/03/18 05/19/20 History docusate sodium [DOK] 100 mg PO BID 11/03/18 05/19/20 History fexofenadine [Carmen Allergy] 180 mg PO DAILY PRN 11/03/18 05/19/20 History fluticasone propionate [Flonase 1 spray INTRANASAL BID PRN 11/03/18 05/19/20 History Allergy Relief] gabapentin 400 mg PO TID 11/03/18 05/19/20 History guaifenesin [Mucinex] 600 mg PO Q12H PRN 11/03/18 05/19/20 History indapamide 2.5 mg PO HS 11/03/18 05/19/20 History ipratropium bromide 2 spray INTRANASAL QID PRN 11/03/18 05/19/20 History ketoconazole 1 applic TOPICAL WK 11/03/18 05/19/20 History lisinopril 40 mg PO HS 11/03/18 05/19/20 History meloxicam 7.5 mg PO BID 11/03/18 05/19/20 History metaxalone 800 mg PO TID 11/03/18 05/19/20 History metformin 850 mg PO BIDM 11/03/18 05/19/20 History metoprolol tartrate 50 mg PO BID 11/03/18 05/19/20 History multivitamin 1 tab PO QDD 11/03/18 05/19/20 History oxycodone 5 mg PO BID PRN 11/03/18 05/19/20 History pioglitazone [Actos] 30 mg PO QAM 11/03/18 05/19/20 History acetaminophen [Tylenol 8 Hour] 650 mg PO DIRECTED PRN 11/29/19 05/19/20 History oxycodone [OxyContin] 20 mg PO BID PRN 12/04/19 05/19/20 History rosuvastatin [Crestor] 20 mg PO DAILY 12/04/19 05/19/20 History baclofen 40 mg PO HS #28 tab 12/08/19 05/19/20 Rx [id number] 1 tab PO QAM #14 tab 12/08/19 05/19/20 Rx [Caltrate 600-D Plus Minerals] cephalexin 500 mg capsule 500 mg PO BID #60 cap 01/23/20 05/19/20 Rx dextroamphetamine-amphetamine ER 20 mg PO DAILY 01/23/20 05/19/20 History 20 mg 24hr capsule,extend release amitriptyline 25 mg PO HS 05/19/20 05/19/20 History aspirin [Aspir-81] 81 mg PO DAILY 05/19/20 05/19/20 History fluoxetine 60 mg PO QAM 05/19/20 05/19/20 History omeprazole 20 mg PO DAILYBB 05/19/20 05/19/20 History Allergies Allergy/AdvReac Type Severity Reaction Status Date / Time simvastatin Allergy Unknown MUSCLE Verified 05/19/20 17:18 WEAKNESS,TINGLING haloperidol [From Haldol] AdvReac Unknown Unknown Verified 05/19/20 17:18 Past Med/Surg History Medical History (Updated 05/21/20 @ 04:00 by Louise Miranda DO) RUDY (acute kidney injury) (Inactive) Benzodiazepine abuse Chronic pain (Chronic) Deep vein thrombosis Delirium Diabetic foot ulcer associated with type 2 diabetes mellitus Diverticulosis (Chronic) DM type 2 (diabetes mellitus, type 2) (Chronic) Dyslipidemia (Chronic) Encephalopathy Femur fracture (Chronic) "S/P repair" History of septic arthritis (Chronic) Hypertension (Chronic) Mood disorder Opiate abuse, continuous NARINDER on CPAP (Chronic) Psychosis Raynaud disease (Chronic) Rhabdomyolysis CPK on admission elevated 1169 Received IVF CPK 859 Surgical History H/O hand surgery (Chronic) History of carpal tunnel surgery (Chronic) S/P left knee arthroscopy (Chronic) Status post total knee replacement, right (Chronic) Family History Other Family history non-contributory Social History Smoking Status: Former smoker Second Hand Exposure: No; Hx Alcohol Use: Yes Alcohol type: beer and hard liquor Hx Substance Use: No Preferred Language: Belarusian Communication Ability: Effective Network Internship Required: No Beliefs That Will Affect Care: None Current Living Situation: Alone Other Information That Helps Us Care for You: No Feels Safe at Home: Yes Safety Concerns: Feels Safe At This Time Review of Systems See HPI for pertinent positives & negatives. and A total of 10 systems reviewed and were otherwise negative Physical Exam Vital Signs Vital Signs - 24 hr 05/19/20 16:51 05/19/20 17:00 05/19/20 17:30 Temperature 36.9 C Temperature Source Oral Pulse Rate 125 H 128 H 140 H Pulse Rate from SpO2 Sensor 132 H 140 H Respiratory Rate 26 H 13 15 Respiratory Effort / Characteristics Non-Labored Spontaneous Respiratory Depth Normal Respiratory Pattern Regular Blood Pressure 150/98 H 140/79 146/73 H Blood Pressure Mean 115 101 98 Pulse Oximetry 97 99 99 Oxygen Delivery Method Room Air Room Air Room Air Sepsis Recent Fever Within 48 Hours No Sepsis New/Unexplained Change in Mental Status Yes Sepsis Action Taken by Nursing Physician Notified Pulse Oximetry Post Tiitration 97 05/19/20 18:30 05/19/20 19:00 05/19/20 19:01 Temperature Temperature Source Pulse Rate 143 H 131 H 134 H Pulse Rate from SpO2 Sensor 143 H 131 H 136 H Respiratory Rate 14 15 27 H Respiratory Effort / Characteristics Respiratory Depth Respiratory Pattern Blood Pressure 140/83 143/77 H Blood Pressure Mean 105 107 Pulse Oximetry 97 96 96 Oxygen Delivery Method Room Air Sepsis Recent Fever Within 48 Hours Sepsis New/Unexplained Change in Mental Status Sepsis Action Taken by Nursing Pulse Oximetry Post Tiitration 05/19/20 19:11 05/19/20 19:30 05/19/20 19:31 Temperature Temperature Source Pulse Rate 132 H 134 H 131 H Pulse Rate from SpO2 Sensor 132 H 134 H 130 H Respiratory Rate 17 15 15 Respiratory Effort / Characteristics Respiratory Depth Respiratory Pattern Blood Pressure 146/102 H 172/114 H Blood Pressure Mean 112 140 Pulse Oximetry 99 97 96 Oxygen Delivery Method Sepsis Recent Fever Within 48 Hours Sepsis New/Unexplained Change in Mental Status Sepsis Action Taken by Nursing Pulse Oximetry Post Tiitration 05/19/20 20:00 05/19/20 20:01 05/19/20 20:30 Temperature Temperature Source Pulse Rate 135 H 132 H 140 H Pulse Rate from SpO2 Sensor 132 H 132 H 141 H Respiratory Rate 15 19 17 Respiratory Effort / Characteristics Respiratory Depth Respiratory Pattern Blood Pressure 131/78 148/77 H Blood Pressure Mean 98 109 Pulse Oximetry 96 96 97 Oxygen Delivery Method Sepsis Recent Fever Within 48 Hours Sepsis New/Unexplained Change in Mental Status Sepsis Action Taken by Nursing Pulse Oximetry Post Tiitration 05/19/20 20:31 Temperature Temperature Source Pulse Rate 137 H Pulse Rate from SpO2 Sensor 137 H Respiratory Rate 16 Respiratory Effort / Characteristics Respiratory Depth Respiratory Pattern Blood Pressure Blood Pressure Mean Pulse Oximetry 96 Oxygen Delivery Method Sepsis Recent Fever Within 48 Hours Sepsis New/Unexplained Change in Mental Status Sepsis Action Taken by Nursing Pulse Oximetry Post Tiitration GENERAL: alert, well appearing, well nourished, no distress, non-toxic HEAD: normal cephalic, raccoon eyes were noted, no urrutia sign, abrasion noted over the nasal bridge and swelling consistent with possible nasal bone fracture, no midface instability EYE EXAM: normal conjunctiva, PERRL and EOM's grossly intact, no hyphema, no subconjunctival hemorrhage OROPHARYNX: no exudate, no erythema, lips, buccal mucosa, and tongue normal and mucous membranes are moist, no blood in the posterior oropharynx EARS: TMs clear b/l NECK: supple, no nuchal rigidity, no adenopathy, non-tender CHEST: stable to compression anteriorly and posteriorly, no crepitus LUNGS: clear to auscultation. Normal chest wall mechanics, no w/r/r HEART: no murmurs, S1 normal and S2 normal ABDOMEN: abdomen soft, non-tender, normo-active bowel sounds, no masses, no jose de jesus ound or guarding. PELVIS: stable to compression anteriorly and posteriorly BACK: Back is symmetrical on inspection and there is no deformity, no midline tenderness, no CVA tenderness. UPPER EXTREMITIES: full active and passive range of motion of all joints without tenderness to palpation, no obvious deformities, normal distal pulses bilaterally, no evidence of trauma LOWER EXTREMITIES: full active and passive range of motion of all joints without tenderness to palpation, no obvious deformities, edema and ecchymosis noted to the left knee, decreased range of motion secondary to pain, normal distal pulses NEURO EXAM: Alert but confused, cranial nerves II-XII grossly intact, normal speech, no gross weakness of arms, no gross weakness of legs. GCS: 15. Course Course 172: Patient updated on results, patient oriented to place and president, still answers other questions with "COVID-19". Patient with sinus tachycardia the monitor, other vital signs stable 183: Patient updated on results, no change in condition. IV fluids running. 184: Dr. Upton discussed the case with Ortho on-call, Dr. Schaffer. He recommends a knee immobilizer. Please refer to Dr. Upton's additional documentation. 1904: Pt rechecked, denies any pain. Hr improving. 1906: Dr. Upton discussed with Dr Joy. Administered Medications Acetaminophen (Tylenol) 650 mg PO Q4H PRN PRN Reason: Pain or Fever Stop: 06/18/20 22:29 Last Admin: 05/20/20 07:36 Dose: 650 mg Documented by: [id number] Amlodipine Besylate (Norvasc) 10 mg PO HS FRANCESCA Stop: 06/18/20 22:29 Last Admin: 05/20/20 20:24 Dose: 10 mg Documented by: [id number] Admin: 05/20/20 00:11 Dose: 10 mg Documented by: [id number] Cephalexin HCl (Keflex) 500 mg PO TID FRANCESCA Stop: 06/19/20 08:59 Last Admin: 05/20/20 20:23 Dose: 500 mg Documented by: [id number] Admin: 05/20/20 16:15 Dose: 500 mg Documented by: [id number] Admin: 05/20/20 07:37 Dose: 500 mg Documented by: [id number] Docusate Sodium (Colace) 100 mg PO BID FRANCESCA Stop: 06/18/20 22:29 Last Admin: 05/20/20 20:23 Dose: 100 mg Documented by: [id number] Admin: 05/20/20 07:37 Dose: 100 mg Documented by: [id number] Admin: 05/20/20 00:10 Dose: 100 mg Documented by: [id number] Gabapentin (Neurontin) 400 mg PO TID FRANCESCA Stop: 06/19/20 20:59 Last Admin: 05/20/20 20:24 Dose: 400 mg Documented by: [id number] Lactated Ringer's (Lr) 1,000 mls @ 100 mls/hr IV .Q10H FRANCESCA Stop: 05/21/20 18:00 Last Admin: 05/20/20 19:19 Dose: 100 mls/hr Documented by: [id number] Infusion: 05/20/20 19:19 Dose: 150 mls/hr Documented by: [id number] Admin: 05/20/20 13:16 Dose: 150 mls/hr Documented by: [id number] Infusion: 05/20/20 12:50 Dose: 150 mls/hr Documented by: [id number] Infusion: 05/20/20 10:15 Dose: 150 mls/hr Documented by: [id number] Infusion: 05/20/20 09:44 Dose: 0 mls/hr Documented by: [id number] Admin: 05/20/20 05:38 Dose: 150 mls/hr Documented by: [id number] Infusion: 05/20/20 05:38 Dose: 150 mls/hr Documented by: [id number] Admin: 05/20/20 01:30 Dose: 150 mls/hr Documented by: [id number] Heparin Sodium/Dextrose (Heparin Sodium/Dextrose) 25,000 units in 500 mls @ 0 mls/hr IV .Q0M FRANCESCA; Protocol Stop: 06/19/20 09:59 Last Titration: 05/21/20 02:00 Dose: 0 units/hr, 0 mls/hr Documented by: [id number] Cosigned by: [id number] Titration: 05/21/20 01:58 Dose: 1,100 units/hr, 22 mls/hr Documented by: [id number] Cosigned by: [id number] Titration: 05/20/20 22:52 Dose: 1,100 units/hr, 22 mls/hr Documented by: [id number] Cosigned by: [id number] Titration: 05/20/20 19:08 Dose: 1,100 units/hr, 22 mls/hr Documented by: [id number] Cosigned by: [id number] Titration: 05/20/20 18:22 Dose: 0 units/hr, 0 mls/hr Documented by: [id number] Cosigned by: [id number] Titration: 05/20/20 14:59 Dose: 1,250 units/hr, 25 mls/hr Documented by: [id number] Cosigned by: [id number] Admin: 05/20/20 11:30 Dose: 1,250 units/hr, 25 mls/hr Documented by: [id number] Cosigned by: [id number] Insulin Aspart (Novolog Flexpen) 0 units SC Q6 FRANCESCA Stop: 06/19/20 05:59 Last Admin: 05/21/20 00:32 Dose: Not Given Documented by: [id number] Cosigned by: [id number] Admin: 05/20/20 17:48 Dose: Not Given Documented by: [id number] Cosigned by: [id number] Admin: 05/20/20 11:52 Dose: Not Given Documented by: [id number] Cosigned by: [id number] Admin: 05/20/20 05:42 Dose: Not Given Documented by: [id number] Cosigned by: [id number] Metoprolol Tartrate (Lopressor) 50 mg PO BID FRANCESCA Stop: 06/18/20 22:29 Last Admin: 05/20/20 20:23 Dose: 50 mg Documented by: [id number] Admin: 05/20/20 07:37 Dose: 50 mg Documented by: [id number] Admin: 05/20/20 00:11 Dose: 50 mg Documented by: [id number] Morphine Sulfate (Morphine Sulfate) 4 mg IV Q6H PRN PRN Reason: Pain Stop: 06/03/20 00:34 Last Admin: 05/20/20 20:29 Dose: 4 mg Documented by: [id number] Admin: 05/20/20 10:38 Dose: 4 mg Documented by: [id number] Admin: 05/20/20 04:55 Dose: 4 mg Documented by: [id number] Multivitamins (Multivitamin Tab) 1 tab PO QDD FRANCESCA Stop: 06/19/20 16:29 Last Admin: 05/20/20 16:15 Dose: 1 tab Documented by: [id number] Oxycodone HCl (Roxicodone Immediate Rel) 5 mg PO QID PRN PRN Reason: Pain Stop: 06/02/20 22:43 Last Admin: 05/20/20 07:36 Dose: 5 mg Documented by: [id number] Admin: 05/20/20 01:45 Dose: 5 mg Documented by: [id number] Pantoprazole Sodium (Protonix) 40 mg PO DAILYBB FRANCESCA Stop: 06/19/20 06:29 Last Admin: 05/20/20 05:37 Dose: 40 mg Documented by: [id number] Discontinued Medications Folic Acid (Folvite) 1 mg PO QAM FRANCESCA Stop: 06/19/20 08:59 Last Admin: 05/20/20 07:38 Dose: 1 mg Documented by: [id number] Sodium Chloride (Nss 1000ml) 2,000 mls @ 999 mls/hr IV .Q2H1M ONE Stop: 05/19/20 19:17 Last Infusion: 05/19/20 21:01 Dose: 0 mls/hr Documented by: [id number] Admin: 05/19/20 18:42 Dose: 999 mls/hr Documented by: [id number] Acetaminophen (Ofirmev) 1,000 mg in 100 mls @ 400 mls/hr IV NOW STA Stop: 05/19/20 19:40 Last Infusion: 05/19/20 19:50 Dose: 0 mls/hr Documented by: [id number] Admin: 05/19/20 19:32 Dose: 400 mls/hr Documented by: [id number] Lactated Ringer's (Lr) 1,000 mls @ 200 mls/hr IV .Q5H STA Stop: 05/20/20 00:56 Last Infusion: 05/20/20 03:18 Dose: 0 mls/hr Documented by: [id number] Infusion: 05/20/20 00:03 Dose: 200 mls/hr Documented by: [id number] Infusion: 05/19/20 22:38 Dose: 0 mls/hr Documented by: [id number] Admin: 05/19/20 20:53 Dose: 200 mls/hr Documented by: [id number] Doxycycline Hyclate 100 mg/ (Dextrose) 110 mls @ 50 mls/hr IV NOW STA Stop: 05/19/20 22:15 Last Infusion: 05/20/20 00:27 Dose: 0 mls/hr Documented by: [id number] Infusion: 05/20/20 00:00 Dose: 50 mls/hr Documented by: [id number] Infusion: 05/19/20 22:38 Dose: 0 mls/hr Documented by: [id number] Admin: 05/19/20 20:53 Dose: 50 mls/hr Documented by: [id number] Thiamine HCl 100 mg/ Syringe 10 mls @ 2 mls/min IV NOW STA Stop: 05/20/20 03:04 Last Admin: 05/20/20 03:25 Dose: 2 mls/min Documented by: [id number] Heparin Sodium (Porcine) 6,000 (units/ Syringe) 6 mls @ 10 mls/min IV NOW ONE Stop: 05/20/20 11:16 Last Admin: 05/20/20 11:19 Dose: 10 mls/min Documented by: [id number] Cosigned by: [id number] Insulin Aspart (Novolog Flexpen) 0 units SC ACHS FRANCESCA Stop: 06/18/20 22:29 Last Admin: 05/20/20 00:16 Dose: Not Given Documented by: [id number] Cosigned by: [id number] Ketorolac Tromethamine (Toradol) 15 mg IV NOW ONE Stop: 05/20/20 00:23 Last Admin: 05/20/20 00:39 Dose: 15 mg Documented by: [id number] Metoprolol Tartrate (Lopressor) 5 mg IV NOW STA Stop: 05/19/20 20:07 Last Admin: 05/19/20 20:53 Dose: 5 mg Documented by: [id number] Metoprolol Tartrate (Lopressor) 2.5 mg IV NOW STA Stop: 05/20/20 00:23 Last Admin: 05/20/20 00:40 Dose: 2.5 mg Documented by: [id number] Morphine Sulfate (Morphine Sulfate) 2 mg IV Q6H PRN PRN Reason: Pain Stop: 06/02/20 22:41 Last Admin: 05/19/20 23:54 Dose: 2 mg Documented by: [id number] Oxycodone HCl (Roxicodone Immediate Rel) 5 mg PO NOW STA Stop: 05/19/20 20:20 Last Admin: 05/19/20 20:59 Dose: 5 mg Documented by: [id number] Medical Decision Making Differential Diagnosis Differential diagnoses includes but is not limited to toxic, metabolic, infectious, traumatic, cardiac, neurologic, hematologic, psychiatric and inflammatory etiologies. Medical Records Attestation: I reviewed the patient's medical records. Home Medications Current Medication List: was personally reviewed by me Laboratory Data Attestation: I reviewed the patient's lab results. Result diagrams: 05/21/20 01:00 05/21/20 01:00 Lab Results 05/19/20 05/19/20 05/19/20 Range/Units 17:13 17:13 17:13 WBC 10.16 (4.8-10.8) K/uL RBC 4.43 L (4.7-6.1) M/uL Hgb 10.8 L (14.0-18.0) g/dL Hct 34.2 L (42-52) % MCV 77.2 L (80-100) fL MCH 24.4 L (25-34) pg MCHC 31.6 L (32-36) g/dL RDW Std Deviation 45.3 (36.4-46.3) fL RDW Coeff of Kiki 16.0 H (11.5-14.5) % Plt Count 240 (130-400) K/uL MPV 10.6 H (7.4-10.4) fL Immature Gran % (Auto) 0.2 % Neut % (Auto) 84.0 % Lymph % (Auto) 7.6 % Gentry % (Auto) 8.1 % Eos % (Auto) 0.0 % Baso % (Auto) 0.1 % Neut # (Auto) 8.54 H (1.4-6.5) K/uL Lymph # (Auto) 0.77 L (1.2-3.4) K/uL Gentry # (Auto) 0.82 H (0.11-0.59) K/uL Eos # (Auto) 0.00 (0-0.5) K/uL Baso # (Auto) 0.01 (0-0.2) K/uL Immature Gran # (Auto) 0.02 (0.00-0.02) K/uL PT 11.2 (9.0-12.0) Seconds INR 1.1 (0.9-1.1) APTT 25.9 (21.0-31.0) Seconds PTT Ratio 0.9 ABG pH (7.35-7.45) ABG pCO2 (35-46) mmHg ABG pO2 (80-95) mmHg ABG HCO3 (19-24) mmol/L ABG O2 Saturation (90-95) % ABG Base Excess (-9-1.8) mEq/L Conrado Test (Pos) Barometric Pressure mm/Hg Oxygen Given Sodium 140 (136-145) mmol/L Potassium 4.4 (3.5-5.1) mmol/L Chloride 108 H (98-107) mmol/L Carbon Dioxide 22 (21-32) mmol/L Anion Gap 10.0 (3-11) BUN 36 H (7-18) mg/dl Creatinine 1.49 H (0.6-1.4) mg/dl Est Cr Clr Drug Dosing 60.1 ml/min Est GFR ( Amer) 58.7 Est GFR (Non-Af Amer) 50.6 BUN/Creatinine Ratio 24.3 H (10-20) Glucose 170 H (70-99) mg/dl Calcium 9.3 (8.5-10.1) mg/dl Magnesium 1.9 (1.8-2.4) mg/dl Total Bilirubin 0.7 (0.2-1) mg/dl AST 38 H (15-37) U/L ALT 32 (12-78) U/L Alkaline Phosphatase 124 H (45-117) U/L Ammonia (11-32) umol/L Total Creatine Kinase (39-308) U/L Troponin I < 0.015 (0-0.045) ng/ml Total Protein 7.9 (6.4-8.2) gm/dl Albumin 4.0 (3.4-5.0) gm/dl Globulin 3.9 (2.5-4.0) gm/dl Albumin/Globulin Ratio 1.0 (0.9-2) TSH 0.443 (0.300-4.500) uIu/ml Ethyl Alcohol mg/dL (0-3) mg/dl Hepatitis C Ab Screen (Neg) 05/19/20 05/19/20 05/19/20 Range/Units 17:13 17:13 17:27 WBC (4.8-10.8) K/uL RBC (4.7-6.1) M/uL Hgb (14.0-18.0) g/dL Hct (42-52) % MCV (80-100) fL MCH (25-34) pg MCHC (32-36) g/dL RDW Std Deviation (36.4-46.3) fL RDW Coeff of Kiki (11.5-14.5) % Plt Count (130-400) K/uL MPV (7.4-10.4) fL Immature Gran % (Auto) % Neut % (Auto) % Lymph % (Auto) % Gentry % (Auto) % Eos % (Auto) % Baso % (Auto) % Neut # (Auto) (1.4-6.5) K/uL Lymph # (Auto) (1.2-3.4) K/uL Gentry # (Auto) (0.11-0.59) K/uL Eos # (Auto) (0-0.5) K/uL Baso # (Auto) (0-0.2) K/uL Immature Gran # (Auto) (0.00-0.02) K/uL PT (9.0-12.0) Seconds INR (0.9-1.1) APTT (21.0-31.0) Seconds PTT Ratio ABG pH (7.35-7.45) ABG pCO2 (35-46) mmHg ABG pO2 (80-95) mmHg ABG HCO3 (19-24) mmol/L ABG O2 Saturation (90-95) % ABG Base Excess (-9-1.8) mEq/L Conrado Test (Pos) Barometric Pressure mm/Hg Oxygen Given Sodium (136-145) mmol/L Potassium (3.5-5.1) mmol/L Chloride (98-107) mmol/L Carbon Dioxide (21-32) mmol/L Anion Gap (3-11) BUN (7-18) mg/dl Creatinine (0.6-1.4) mg/dl Est Cr Clr Drug Dosing ml/min Est GFR ( Amer) Est GFR (Non-Af Amer) BUN/Creatinine Ratio (10-20) Glucose (70-99) mg/dl Calcium (8.5-10.1) mg/dl Magnesium (1.8-2.4) mg/dl Total Bilirubin (0.2-1) mg/dl AST (15-37) U/L ALT (12-78) U/L Alkaline Phosphatase (45-117) U/L Ammonia (11-32) umol/L Total Creatine Kinase 1169 H (39-308) U/L Troponin I (0-0.045) ng/ml Total Protein (6.4-8.2) gm/dl Albumin (3.4-5.0) gm/dl Globulin (2.5-4.0) gm/dl Albumin/Globulin Ratio (0.9-2) TSH (0.300-4.500) uIu/ml Ethyl Alcohol mg/dL < 3.0 (0-3) mg/dl Hepatitis C Ab Screen Neg (Neg) 05/19/20 05/19/20 Range/Units 18:05 18:17 WBC (4.8-10.8) K/uL RBC (4.7-6.1) M/uL Hgb (14.0-18.0) g/dL Hct (42-52) % MCV (80-100) fL MCH (25-34) pg MCHC (32-36) g/dL RDW Std Deviation (36.4-46.3) fL RDW Coeff of Kiki (11.5-14.5) % Plt Count (130-400) K/uL MPV (7.4-10.4) fL Immature Gran % (Auto) % Neut % (Auto) % Lymph % (Auto) % Gentry % (Auto) % Eos % (Auto) % Baso % (Auto) % Neut # (Auto) (1.4-6.5) K/uL Lymph # (Auto) (1.2-3.4) K/uL Gentry # (Auto) (0.11-0.59) K/uL Eos # (Auto) (0-0.5) K/uL Baso # (Auto) (0-0.2) K/uL Immature Gran # (Auto) (0.00-0.02) K/uL PT (9.0-12.0) Seconds INR (0.9-1.1) APTT (21.0-31.0) Seconds PTT Ratio ABG pH 7.48 H (7.35-7.45) ABG pCO2 28 L (35-46) mmHg ABG pO2 93 (80-95) mmHg ABG HCO3 20 (19-24) mmol/L ABG O2 Saturation 97.7 H (90-95) % ABG Base Excess -2.8 (-9-1.8) mEq/L Conrado Test POS (Pos) Barometric Pressure 730.2 mm/Hg Oxygen Given ROOM AIR Sodium (136-145) mmol/L Potassium (3.5-5.1) mmol/L Chloride (98-107) mmol/L Carbon Dioxide (21-32) mmol/L Anion Gap (3-11) BUN (7-18) mg/dl Creatinine (0.6-1.4) mg/dl Est Cr Clr Drug Dosing ml/min Est GFR ( Amer) Est GFR (Non-Af Amer) BUN/Creatinine Ratio (10-20) Glucose (70-99) mg/dl Calcium (8.5-10.1) mg/dl Magnesium (1.8-2.4) mg/dl Total Bilirubin (0.2-1) mg/dl AST (15-37) U/L ALT (12-78) U/L Alkaline Phosphatase (45-117) U/L Ammonia 11.0 (11-32) umol/L Total Creatine Kinase (39-308) U/L Troponin I (0-0.045) ng/ml Total Protein (6.4-8.2) gm/dl Albumin (3.4-5.0) gm/dl Globulin (2.5-4.0) gm/dl Albumin/Globulin Ratio (0.9-2) TSH (0.300-4.500) uIu/ml Ethyl Alcohol mg/dL (0-3) mg/dl Hepatitis C Ab Screen (Neg) Imaging Data Radiologist's Impression: LEFT KNEE 2 VIEWS CLINICAL HISTORY: Fall. Left knee pain. FINDINGS: AP and crosstable lateral views of the left knee are compared to study dated 05/23/2017. The skeletal structures are osteopenic. Chronic posttraumatic deformity and postoperative change is seen in the proximal tibia. There is an acute and minimally distracted oblique fracture through the distal femoral metadiaphysis. There is apex volar angulation and mild overriding of fragments. There is also mild lateral distraction of the distal fragment by approximately 1 cm. The proximal tibia and fibula appear intact. Advanced tricompartmental degenerative joint space narrowing is noted with large marginal osteophytes. There is a knee joint effusion, as well as soft tissue swelling around the knee. IMPRESSION: Distal femoral fracture as above with associated joint effusion and soft tissue edema. Electronically signed by: Rommel Rodríguez M.D. 05/19/2020 5:41 PM SINGLE VIEW CHEST CLINICAL HISTORY: Change in mental status. FINDINGS: An AP, portable, upright chest radiograph is compared to study dated 11/29/2019. The cardiomediastinal silhouette is unremarkable. There is mild chronic elevation of right hemidiaphragm. Atelectasis is noted at the lung bases. No airspace consolidation or large pleural effusion is identified. No pneumothorax is seen. The bony thorax is grossly intact. IMPRESSION: No active disease in the chest. ACT 112: Negative or not required by law. Electronically signed by: Rommel Rodríguez M.D. 05/19/2020 5:39 PM SINGLE VIEW PELVIS CLINICAL HISTORY: Fall. FINDINGS: 2 AP supine pelvic radiographs are compared to studies dated 06/04/2018 and 12/03/2015. The skeletal structures are osteopenic. There is no radiographic evidence of acute fracture involving the hips or bony pelvis. There is chronic deformity of the left proximal femur. Mild to moderate degenerative joint space narrowing is present in the hips. Enthesophytes arise from the left anterior superior iliac spine. The sacroiliac joints are normal. Lumbosacral spondylosis is partially visualized. The overlying soft tissues are normal in appearance. IMPRESSION: 1. No acute bony abnormality is identified. 2. Chronic deformity of the left proximal femur is similar to prior studies. Electronically signed by: Rommel Rodríguez M.D. 05/19/2020 7:[address] SCAN OF THE BRAIN WITHOUT IV CONTRAST CLINICAL HISTORY: Fall. COMPARISON STUDY: CT of the brain dated 11/29/2019. TECHNIQUE: Unenhanced axial CT scan of the brain is performed from the vertex to the skull base. A dose lowering technique was utilized adhering to the principles of ALARA. CT DOSE: 1137.73 mGy.cm FINDINGS: Brain parenchyma: There is minimal subcortical and periventricular microangio pathic change. There is no hemorrhage, mass effect, or evidence of acute territorial ischemia by CT criteria. Bo-white matter differentiation is preserved. No extra-axial fluid collection is seen. Ventricles, sulci, cisterns: Prominent secondary to involutional change. Intracranial vasculature: There is atherosclerotic calcification of the cavernous carotid and vertebral arteries. Calvarium: The skeletal structures are osteopenic. There is no depressed calvarial fracture. Sinuses and mastoids: The visualized paranasal sinuses are clear. The mastoid air cells are well pneumatized. Orbits: The bony orbits are grossly intact. IMPRESSION: There is no hemorrhage, mass effect, or evidence of acute territorial ischemia by CT criteria. ACT 112: Negative or not required by law. Electronically signed by: Rommel Rodríguez M.D. 05/19/2020 6:[address] SCAN OF THE CERVICAL SPINE CLINICAL HISTORY: Fall. COMPARISON STUDY: CT of the cervical spine dated 02/11/2014. TECHNIQUE: CT scan of the cervical spine is performed from the skull base to the upper thoracic spine. Images are reviewed in the axial, sagittal, and coronal planes. IV contrast was not administered for this examination. A dose lowering technique was utilized adhering to the principles of ALARA. FINDINGS: Skeletal structures: The skeletal structures are osteopenic. There is no evidence of fracture or subluxation involving the cervical spine. Vertebral body height and alignment are maintained. There is straightening of the cervical lordosis with reversal centered at C4-C5. Anterior osteophytes are seen thro ughout. The odontoid process and lateral masses are intact. The atlantoaxial articulation is preserved noting productive degenerative change. The spinous processes appear intact. There is moderate to advanced multilevel cervical spondylosis. Uncovertebral and facet arthropathy contribute to neural foraminal stenosis at most levels. Intervertebral discs: Advanced disc space narrowing is seen at all levels between C3-C4 and C7-T1. There is advanced endplate sclerosis at C3-C4 Central canal: Posterior disc osteophyte complexes are seen at all levels between C3-C4 and C7-T1. This likely contributes to multilevel acquired compromise of the central canal. This is greatest at C6-C7. Soft tissues: The prevertebral and paraspinous soft tissues are within normal limits. There is atherosclerotic calcification of the carotid bulbs. Calvarium: The visualized calvarium at the skull base appears intact. Brain parenchyma: Partially visualized brain parenchyma the skull base is within normal limits. Sinuses and mastoids: The visualized paranasal sinuses are clear. The mastoid air cells are well pneumatized. Lung apices: Clear as visualized. IMPRESSION: 1. There is no evidence of fracture or subluxation involving the cervical spine. 2. Osteopenia and advanced spondylotic change as above. ACT 112: Negative or not required by law. Electronically signed by: Rommel Rodríguez M.D. CT SCAN OF THE FACIAL BONES WITHOUT IV CONTRAST CLINICAL HISTORY: Facial injury. COMPARISON STUDY: No priors. TECHNIQUE: High-resolution CT scan of the facial bones is performed. Images are reviewed in the axial, sagittal, and coronal planes. IV contrast was not administered for this examination. A dose lowering technique was utilized adhering to the principles of ALARA. FINDINGS: The skeletal structures are osteopenic. There is no evidence of facial bone fracture. The bony orbits are intact and the orbital contents are within normal limits. The zygomatic arches, nasal bones, and pterygoid plates are preserved. The maxilla and mandible are intact. Generative change is noted in the temporomandibular joints. There are no layering blood products within the paranasal sinuses. The sinuses and mastoids are clear. The visualized calvarium appears intact. The upper cervical spine is maintained noting advanced spondylosis. Partially imaged brain parenchyma is within normal limits. There is atherosclerotic calcification of the carotid bulbs. A large periapical lucency is identified within a right mandibular premolar. IMPRESSION: There is no evidence of facial bone fracture. ACT 112: Negative or not required by law. Electronically signed by: Rommel Rodríguez M.D. 05/19/2020 6:13 PM ECG Data Attestation: I personally reviewed and interpreted this ECG as follows: Indication: + altered mental status and + weakness Rate (beats per minute): 137 Rhythm: + sinus tachycardia ECG Intervals/blocks: + Normal QRS and + Normal QT ECG [place]: + Normal ECG ST segments: + Nonspecific ST abnormalities Blood Pressure Blood Pressure Findings: Elevated blood pressure Blood Pressure Disposition: further management by hospitalist [facility] Narrative 59-year-old male brought in with altered mental status. Patient with a complicated past medical history including substance abuse, polysubstance overdose, and mental health issues. Patient with obvious evidence of trauma. Due to unclear etiology, patient had labs drawn and sent was sent for immediate CT and x-ray imaging. Patient know his name, location, who the president was, however otherwise answered all questions of time and date as "COVID-19". Patien t's labs reassuring given unclear etiology, CT of the head, facial bones, and cervical spine unremarkable. Patient found to have a distal femur fracture on the left. Dr. Upton did discuss this with orthopedics who recommended a knee immobilizer. Dr. Upton discussed the case with the hospitalist for additional evaluation. Patient had no other new or evolving symptoms or signs of evolving injury or infectious etiology while here. Patient CK was slightly elevated, it is unclear how long the patient may have been down for. No family present at additional information. Patient was started on cautious IV fluid rehydration after initial CT scan was negative. Patient's heart rate did slowly improve. Patient was given IV Tylenol for pain as we avoided narcotics due to altered mentation despite known fracture. No evidence of bacteremia/sepsis. I am concerned that patient's fall may have been due to substance abuse polypharmacy OD as this is happened previously. I feel patient is at risk for withdrawal if he was altered and not taking his usual medication. Patient does need rehydrated, and cautious use of his additional home medications to prevent other fulminant withdrawal. I do not suspect cardiac etiology of tachycardia, I feel this is likely secondary to dehydration, pain due to fracture, and potential withdrawal. Patient with chronic anemia, H&H stable compared to prior. Patient with no other evidence of truncal or upper extremity trauma. Chest x-ray and pelvic x-ray unremarkable. An order was placed for continuous cardiac monitoring. The monitor shows a rate of 132 with sinus tachycardia rhythm. Impression & Plan AMS (altered mental status), RUDY (acute kidney injury), CHI (closed head injury), Contusion of face, Abrasion of face, Fracture of distal end of femur, Abrasion of knee, Anemia Discharge Plan Visit Data *Final* Discharge Date/Time: 05/19/20 20:54 Chief Complaint: Altered Mental Status Stated Complaint: AMS, BRUSING TO FACE, ED Provider: Louise Miranda ED Midlevel Provider: Rashaun Upton Discharge Problem: AMS (altered mental status), RUDY (acute kidney injury), CHI (closed head in jury), Contusion of face, Abrasion of face, Fracture of distal end of femur, Abrasion of knee, Anemia Patient Disposition: Admitted As Inpatient Condition: Fair Discharge Instructions Interventions: ED Discharge Assessment Last Done: 05/19/20 20:54
[2020-05-19 17:55] LABS: INR 1.1 (0.9-1.1); Partial Thromboplastin Ratio 0.9; Partial Thromboplastin Time 25.9 Seconds (21.0-31.0); Prothrombin Time 11.2 Seconds (9.0-12.0)
[2020-05-19 17:56] LABS: Alanine Aminotransferase 32 U/L (12-78); Aspartate Aminotransferase 38 U/L (15-37); BUN Creatinine Ratio 24.3 (10-20); Blood Urea Nitrogen 36 mg/dl (7-18); Calcium 9.3 mg/dl (8.5-10.1); Carbon Dioxide 22 mmol/L (21-32); Chloride 108 mmol/L (98-107); Creatinine Clr Calc Pharmacy 60.1 ml/min; Est GFR (African American) 58.7; Est GFR (Non-African American) 50.6; Glucose 170 mg/dl (70-99); Magnesium 1.9 mg/dl (1.8-2.4); Potassium 4.4 mmol/L (3.5-5.1); Sodium 140 mmol/L (136-145)
[2020-05-19 18:07] LABS: Alkaline Phosphatase 124 U/L (45-117); Bilirubin,Total 0.7 mg/dl (0.2-1); Globulin 3.9 gm/dl (2.5-4.0); Thyroid Stimulating Hormone 0.443 uIu/ml (0.300-4.500); Total Protein 7.9 gm/dl (6.4-8.2); Troponin I < 0.015 ng/ml (0-0.045)
--- NOTE | 2020-05-19 18:14 | CT Scan Report ---
CT SCAN OF THE FACIAL BONES WITHOUT IV CONTRAST CLINICAL HISTORY: Facial injury. COMPARISON STUDY: No priors. TECHNIQUE: High-resolution CT scan of the facial bones is performed. Images are reviewed in the axia l, sagittal, and coronal planes. IV contrast was not administered for this examination. A dose lower ing technique was utilized adhering to the principles of ALARA. FINDINGS: The skeletal structures are osteopenic. There is no evidence of facial bone fracture. The b bud orbits are intact and the orbital contents are within normal limits. The zygomatic arches, nasal bones, and pterygoid plates are preserved. The maxilla and mandible are intact. Generative change is noted in the temporomandibular joints. There are no layering blood products within the paranasal sinu ses. The sinuses and mastoids are clear. The visualized calvarium appears intact. The upper cervical spine is maintained noting advanced spondylosis. Partially imaged brain parenchyma is within normal l imits. There is atherosclerotic calcification of the carotid bulbs. A large periapical lucency is royce ntified within a right mandibular premolar. IMPRESSION: There is no evidence of facial bone fracture. ACT 112: Negative or not required by law. Electronically signed by: Rommel Rodríguez M.D. 05/19/2020 6:13 PM
--- NOTE | 2020-05-19 18:17 | CT Scan Report ---
CT SCAN OF THE BRAIN WITHOUT IV CONTRAST CLINICAL HISTORY: Fall. COMPARISON STUDY: CT of the brain dated 11/29/2019. TECHNIQUE: Unenhanced axial CT scan of the brain is performed from the vertex to the skull base. A do se lowering technique was utilized adhering to the principles of ALARA. CT DOSE: 1137.73 mGy.cm FINDINGS: Brain parenchyma: There is minimal subcortical and periventricular microangiopathic change. There is no hemorrhage, mass effect, or evidence of acute territorial ischemia by CT criteria. Bo-white keith er differentiation is preserved. No extra-axial fluid collection is seen. Ventricles, sulci, cisterns: Prominent secondary to involutional change. Intracranial vasculature: There is atherosclerotic calcification of the cavernous carotid and vertebr al arteries. Calvarium: The skeletal structures are osteopenic. There is no depressed calvarial fracture. Sinuses and mastoids: The visualized paranasal sinuses are clear. The mastoid air cells are well pneu matized. Orbits: The bony orbits are grossly intact. IMPRESSION: There is no hemorrhage, mass effect, or evidence of acute territorial ischemia by CT [place]. ACT 112: Negative or not required by law. Electronically signed by: Rommel Rodríguez M.D. 05/19/2020 6:15 PM
--- NOTE | 2020-05-19 18:27 | CT Scan Report ---
CT SCAN OF THE CERVICAL SPINE CLINICAL HISTORY: Fall. COMPARISON STUDY: CT of the cervical spine dated 02/11/2014. TECHNIQUE: CT scan of the cervical spine is performed from the skull base to the upper thoracic spine . Images are reviewed in the axial, sagittal, and coronal planes. IV contrast was not administered fo r this examination. A dose lowering technique was utilized adhering to the principles of ALARA. FINDINGS: Skeletal structures: The skeletal structures are osteopenic. There is no evidence of fracture or subl uxation involving the cervical spine. Vertebral body height and alignment are maintained. There is st raightening of the cervical lordosis with reversal centered at C4-C5. Anterior osteophytes are seen t hroughout. The odontoid process and lateral masses are intact. The atlantoaxial articulation is prese rved noting productive degenerative change. The spinous processes appear intact. There is moderate to advanced multilevel cervical spondylosis. Uncovertebral and facet arthropathy contribute to neural f oraminal stenosis at most levels. Intervertebral discs: Advanced disc space narrowing is seen at all levels between C3-C4 and C7-T1. Th ere is advanced endplate sclerosis at C3-C4 Central canal: Posterior disc osteophyte complexes are seen at all levels between C3-C4 and C7-T1. Th is likely contributes to multilevel acquired compromise of the central canal. This is greatest at C6- C7. Soft tissues: The prevertebral and paraspinous soft tissues are within normal limits. There is athero sclerotic calcification of the carotid bulbs. Calvarium: The visualized calvarium at the skull base appears intact. Brain parenchyma: Partially visualized brain parenchyma the skull base is within normal limits. Sinuses and mastoids: The visualized paranasal sinuses are clear. The mastoid air cells are well pneu matized. Lung apices: Clear as visualized. IMPRESSION: 1. There is no evidence of fracture or subluxation involving the cervical spine. 2. Osteopenia and advanced spondylotic change as above. ACT 112: Negative or not required by law. Electronically signed by: Rommel Rodríguez M.D. 05/19/2020 6:25 PM
[2020-05-19 18:36] LABS: Base Excess ABG -2.8 mEq/L (-9-1.8); HCO3 ABG 20 mmol/L (19-24); Oxygen Saturation ABG 97.7 % (90-95); PCO2 ABG 28 mmHg (35-46); PO2 ABG 93 mmHg (80-95); pH ABG 7.48 (7.35-7.45)
[2020-05-19 18:37] LABS: Allen Test POS (Pos)
--- NOTE | 2020-05-19 19:12 | XRay Report ---
SINGLE VIEW PELVIS CLINICAL HISTORY: Fall. FINDINGS: 2 AP supine pelvic radiographs are compared to studies dated 06/04/2018 and 12/03/2015. The ske letal structures are osteopenic. There is no radiographic evidence of acute fracture involving the hi ps or bony pelvis. There is chronic deformity of the left proximal femur. Mild to moderate degenerati ve joint space narrowing is present in the hips. Enthesophytes arise from the left anterior superior iliac spine. The sacroiliac joints are normal. Lumbosacral spondylosis is partially visualized. The o verlying soft tissues are normal in appearance. IMPRESSION: 1. No acute bony abnormality is identified. 2. Chronic deformity of the left proximal femur is similar to prior studies. Electronically signed by: Rommel Rodríguez M.D. 05/19/2020 7:11 PM
[2020-05-19] MEDS ORDERED: ACETAMINOPHEN 1,000 MG/100 ML VIAL IV STA (19:26)
[2020-05-19] MEDS ORDERED: LACTATED RINGER'S 1,000 ML IV STA (19:57)
[2020-05-19] MEDS ORDERED: DOXYCYCLINE HYCLATE 100 MG in DEXTROSE 5% 100 ML IV STA (20:04)
[2020-05-19] MEDS ORDERED: METOPROLOL TARTRATE 1 MG/ML VIAL IV STA (20:06)
--- NOTE | 2020-05-19 20:07 | History & Physical Report ---
Date of Service May 19, 2020 Assessment & Plan (1) Encephalopathy: Multifactorial : Possible polypharmacy withdrawal/drug interaction (recurrent admissions), hx chronic pain/ADD/polysubstance abuse as per records ARF secondary to above, mild rhabdomyolysis HTN urgency secondary to discomfort, possible missed medications LLE swelling secondary to left distal femoral fracture secondary to fall hx LLE osteomyelitis status post surgery on chronic Keflex suppression Rx chronic wound left great toe status post antibiotic Rx (osteomyelitis on recent MRI), no overt sepsis for now Rule out DVT DM2 on oral medications, well-controlled as of recent hemoglobin A1c of 6.04 April 2020 ADD as per records chronic anemia, hemoglobin at baseline Probable functional disability Past tobacco abuse PCU Appropriate to hold neuropsychotropic meds for now until mentation at baseline Oxycodone/morphine as needed pain We will hold off on resuming RTC Oxycontin for now given disorientation. (May be prudent to wean off medication on discharge given patient's functional disability and recurrent admissions for polysubstance abuse/withdrawal.) Facilitate home beta-carola Monitor creatinine/CPK response to IVF Appropriate to hold home BRENT inhibitor and diuretic for now until creatinine back to baseline. Orthopedics consult RE left distal femoral fracture and osteomyelitis L great toe (ER provider already in touch with Dr. Schaffer regarding left distal femoral fracture.) Bedrest, n.p.o. for now until patient seen by Orthopedics [facility] [place] consult RE chronic osteomyelitis, left great toe (Patient known to Dr. Ethan Conley). LLE venous Dopplers rule out DVT PT OT eval once cleared by Orthopedics ISS BG goal [id number] PT OT eval Social service RE discharge planning DVT prophylaxis. SCDs RE facial trauma Full code as per daughter, Ms. Raeann Jack (based in [place]). She requests updates from providers through [phone]. Text document was generated using [employer] voice recognition software. It may contain grammatical or spelling errors. Kindly contact undersigned for clarification of any documentation item in question. ADDENDUM : Made aware of [facility] of ultrasound venous LUE initial read. Acute DVT peroneal/posterior tibial veins below the knee. IV anticoagulation currently contraindicated by facial trauma/epistaxis. Vascular surgery consult in a.m. for possible IVC filter placement. History of Present Illness Chief Complaint: Altered mental status as per records Primary Care Provider: Dr. Billings History obtained from patient, family, and records. Limited history from patient secondary disorientation. Medical history is significant for HTN, hyperlipidemia, DM2 on oral medications, NARINDER CPAP, ADD as per records, past tobacco abuse, poss ETOH abuse as per records, IBS as per records, ichthyosis congenita as per records, chronic pain, history L tibia osteomyelitis status post surgery on chronic Keflex suppression Rx, hx chronic L great toe wound (after stepping on a needle as per records) sp antibiotic Rx (osteomyelitis on recent MRI), chronic anemia (baseline hemoglobin of 10). Last confinement December 2019 for encephalopathy secondary to polysubstance abuse withdrawal. Patient subsequently transitioned to behavioral health unit for psychosis. As per daughter, home health nurse has not been able to check on patient regularly the last week due to patient's personal issues. Patient looked well on a remote camera daughter had installed at patient's home when daughter reviewed him 3 days ago. This morning, home health nurse visited patient at home. Patient did not answer the door. EMS contacted by home health nurse. Patient found by EMS to be disoriented and with evidence of facial trauma. BSG 130s at site. Patient does not recall events of the last few days or how he ended up on the floor.. Denies chest pain, S OB, abdominal pain. Patient complaining of achy left leg pain. Patient does not know if he ran out of pain meds at home. MEDICAL HISTORY: As above. Terminated [facility] medication usage agreement as per outpatient records. [facility] ID clinic visit last March 2020 for chronic left tibia osteomyelitis and L great toe wound. No obvious evidence of infection on soft tissue left great toe, chronic wound healing well as per note. MRI with contrast however recommended to rule out chronic osteomyelitis of left great toe. Amputation recommended if osteomyelitis found as antibiotic surgery without amputation almost always leads to relapse/recurrence as per ID note. 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 [facility] [place] clinic follow-up recommended every 6 to 12 months given chronic Keflex Rx for left tibial osteomyelitis as per note. Outpatient left great toe MRI (05/12/20): 1. Small joint effusion at the interphalangeal joint of the first toe with bony destructive changes across the joint and abnormal marrow signal. This is highly suspicious for a septic arthritis. 2. Mild cellulitis within the first toe. Apprise Counselor disposition unknown at this time. SURGERIES: Carpal tunnel, orthopedic surgeries. FAMILY HISTORY: heart disease as per records. PERSONAL SOCIAL HISTORY: Past tobacco abuse. Occasional alcohol intake as per daughter, she doubts abuse. On disability. Allergies Allergy/AdvReac Type Severity Reaction Status Date / Time simvastatin Allergy Unknown MUSCLE Verified 05/19/20 17:18 WEAKNESS,TINGLING haloperidol [From Haldol] AdvReac Unknown Unknown Verified 05/19/20 17:18 Home Medications Home Medications Medication Instructions Recorded Confirmed Type Victoza 3-Toni 1.2 mg SUBCUT QAM 11/03/18 05/19/20 History amlodipine [Norvasc] 10 mg PO HS 11/03/18 05/19/20 History docusate sodium [DOK] 100 mg PO BID 11/03/18 05/19/20 History fexofenadine [Carmen Allergy] 180 mg PO DAILY PRN 11/03/18 05/19/20 History fluticasone propionate [Flonase 1 spray INTRANASAL BID PRN 11/03/18 05/19/20 History Allergy Relief] gabapentin 400 mg PO TID 11/03/18 05/19/20 History guaifenesin [Mucinex] 600 mg PO Q12H PRN 11/03/18 05/19/20 History indapamide 2.5 mg PO HS 11/03/18 05/19/20 History ipratropium bromide 2 spray INTRANASAL QID PRN 11/03/18 05/19/20 History ketoconazole 1 applic TOPICAL WK 11/03/18 05/19/20 History lisinopril 40 mg PO HS 11/03/18 05/19/20 History meloxicam 7.5 mg PO BID 11/03/18 05/19/20 History metaxalone 800 mg PO TID 11/03/18 05/19/20 History metformin 850 mg PO BIDM 11/03/18 05/19/20 History metoprolol tartrate 50 mg PO BID 11/03/18 05/19/20 History multivitamin 1 tab PO QDD 11/03/18 05/19/20 History oxycodone 5 mg PO BID PRN 11/03/18 05/19/20 History pioglitazone [Actos] 30 mg PO QAM 11/03/18 05/19/20 History acetaminophen [Tylenol 8 Hour] 650 mg PO DIRECTED PRN 11/29/19 05/19/20 History oxycodone [OxyContin] 20 mg PO BID PRN 12/04/19 05/19/20 History rosuvastatin [Crestor] 20 mg PO DAILY 12/04/19 05/19/20 History baclofen 40 mg PO HS #28 tab 12/08/19 05/19/20 Rx [id number] 1 tab PO QAM #14 tab 12/08/19 05/19/20 Rx [Caltrate 600-D Plus Minerals] cephalexin 500 mg capsule 500 mg PO BID #60 cap 01/23/20 05/19/20 Rx dextroamphetamine-amphetamine ER 20 mg PO DAILY 01/23/20 05/19/20 History 20 mg 24hr capsule,extend release amitriptyline 25 mg PO HS 05/19/20 05/19/20 History aspirin [Aspir-81] 81 mg PO DAILY 05/19/20 05/19/20 History fluoxetine 60 mg PO QAM 05/19/20 05/19/20 History omeprazole 20 mg PO DAILYBB 05/19/20 05/19/20 History Past Med/Surg History Medical History Benzodiazepine abuse Chronic pain (Chronic) Delirium Diabetic foot ulcer associated with type 2 diabetes mellitus Diverticulosis (Chronic) DM type 2 (diabetes mellitus, type 2) (Chronic) Dyslipidemia (Chronic) Femur fracture (Chronic) "S/P repair" History of septic arthritis (Chronic) Hypertension (Chronic) Mood disorder Opiate abuse, continuous NARINDER on CPAP (Chronic) Psychosis Raynaud disease (Chronic) Surgical History H/O hand surgery (Chronic) History of carpal tunnel surgery (Chronic) S/P left knee arthroscopy (Chronic) Status post total knee replacement, right (Chronic) Family History Other Family history non-contributory Social History Smoking Status: Former smoker Second Hand Exposure: No; Hx Alcohol Use: Yes Alcohol type: beer and hard liquor Hx Substance Use: No Preferred Language: Syrian Communication Ability: Effective 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 Required: No Beliefs That Will Affect Care: None Current Living Situation: Alone Other Information That Helps Us Care for You: No Feels Safe at Home: Yes Safety Concerns: Feels Safe At This Time Review of Systems Review of Systems: Could not be reliably obtained Physical Exam Physical Exam: GENERAL: Disoriented, obese, no respiratory distress, uncomfortable SKIN: Pallor , warm HEENT: Bilateral periorbital ecchymoses, pale palpebral conjunctivae, multiple abrasions/dried blood on mid face, dry buccal mucosa NECK : Supple, short neck, no tenderness CHEST : Decreased breath sounds, no tenderness HEART : Tachycardic, no obvious murmurs ABDOMEN: Some distention, nontender EXTREMITIES : LLE swelling w/tenderness, no other conspicuous deformities noted NEUROLOGIC : Disoriented, no facial asymmetry, no other gross focality Results & Data Results & Data ([facility]) Vital Signs (Past 12 Hours) Vital Signs Temp Pulse Resp BP Pulse Ox 05/19/20 18:30 143 H 14 140/83 97 05/19/20 17:30 140 H 15 146/73 H 99 05/19/20 17:00 128 H 13 140/79 99 05/19/20 16:51 36.9 C 125 H 26 H 150/98 H 97 Laboratory Results Laboratory Results WBC 10.16 K/uL (4.8-10.8) 05/19/20 17:13 RBC 4.43 M/uL (4.7-6.1) L 05/19/20 17:13 Hgb 10.8 g/dL (14.0-18.0) L 05/19/20 17:13 Hct 34.2 % (42-52) L 05/19/20 17:13 MCV 77.2 fL (80-100) L 05/19/20 17:13 MCH 24.4 pg (25-34) L 05/19/20 17:13 MCHC 31.6 g/dL (32-36) L 05/19/20 17:13 RDW Std Deviation 45.3 fL (36.4-46.3) 05/19/20 17:13 RDW Coeff of Kiki 16.0 % (11.5-14.5) H 05/19/20 17:13 Plt Count 240 K/uL (130-400) 05/19/20 17:13 MPV 10.6 fL (7.4-10.4) H 05/19/20 17:13 Immature Gran % (Auto) 0.2 % 05/19/20 17:13 Neut % (Auto) 84.0 % 05/19/20 17:13 Lymph % (Auto) 7.6 % 05/19/20 17:13 Elbert % (Auto) 8.1 % 05/19/20 17:13 Eos % (Auto) 0.0 % 05/19/20 17:13 Baso % (Auto) 0.1 % 05/19/20 17:13 Neut # (Auto) 8.54 K/uL (1.4-6.5) H 05/19/20 17:13 Lymph # (Auto) 0.77 K/uL (1.2-3.4) L 05/19/20 17:13 Elbert # (Auto) 0.82 K/uL (0.11-0.59) H 05/19/20 17:13 Eos # (Auto) 0.00 K/uL (0-0.5) 05/19/20 17:13 Baso # (Auto) 0.01 K/uL (0-0.2) 05/19/20 17:13 Immature Gran # (Auto) 0.02 K/uL (0.00-0.02) 05/19/20 17:13 PT 11.2 Seconds (9.0-12.0) 05/19/20 17:13 INR 1.1 (0.9-1.1) 05/19/20 17:13 APTT 25.9 Seconds (21.0-31.0) 05/19/20 17:13 PTT Ratio 0.9 05/19/20 17:13 ABG pH 7.48 (7.35-7.45) H 05/19/20 18:05 ABG pCO2 28 mmHg (35-46) L 05/19/20 18:05 ABG pO2 93 mmHg (80-95) 05/19/20 18:05 ABG HCO3 20 mmol/L (19-24) 05/19/20 18:05 ABG O2 Saturation 97.7 % (90-95) H 05/19/20 18:05 ABG Base Excess -2.8 mEq/L (-9-1.8) 05/19/20 18:05 Conrado Test POS (Pos) 05/19/20 18:05 Barometric Pressure 730.2 mm/Hg 05/19/20 18:05 Oxygen Given ROOM AIR 05/19/20 18:05 Sodium 140 mmol/L (136-145) 05/19/20 17:13 Potassium 4.4 mmol/L (3.5-5.1) 05/19/20 17:13 Chloride 108 mmol/L (98-107) H 05/19/20 17:13 Carbon Dioxide 22 mmol/L (21-32) 05/19/20 17:13 Anion Gap 10.0 (3-11) 05/19/20 17:13 BUN 36 mg/dl (7-18) H 05/19/20 17:13 Creatinine 1.49 mg/dl (0.6-1.4) H 05/19/20 17:13 Est Cr Clr Drug Dosing 60.1 ml/min 05/19/20 17:13 Est GFR ( Amer) 58.7 05/19/20 17:13 Est GFR (Non-Af Amer) 50.6 05/19/20 17:13 BUN/Creatinine Ratio 24.3 (10-20) H 05/19/20 17:13 Glucose 170 mg/dl (70-99) H 05/19/20 17:13 Calcium 9.3 mg/dl (8.5-10.1) 05/19/20 17:13 Magnesium 1.9 mg/dl (1.8-2.4) 05/19/20 17:13 Total Bilirubin 0.7 mg/dl (0.2-1) 05/19/20 17:13 AST 38 U/L (15-37) H 05/19/20 17:13 ALT 32 U/L (12-78) 05/19/20 17:13 Alkaline Phosphatase 124 U/L (45-117) H 05/19/20 17:13 Ammonia 11.0 umol/L (11-32) 05/19/20 18:17 Troponin I < 0.015 ng/ml (0-0.045) 05/19/20 17:13 Total Protein 7.9 gm/dl (6.4-8.2) 05/19/20 17:13 Albumin 4.0 gm/dl (3.4-5.0) 05/19/20 17:13 Globulin 3.9 gm/dl (2.5-4.0) 05/19/20 17:13 Albumin/Globulin Ratio 1.0 (0.9-2) 05/19/20 17:13 TSH 0.443 uIu/ml (0.300-4.500) 05/19/20 17:13 Ethyl Alcohol mg/dL < 3.0 mg/dl (0-3) 05/19/20 17:13 Lab Results 05/19/20 05/19/20 05/19/20 Range/Units 17:13 17:13 17:13 WBC 10.16 (4.8-10.8) K/uL RBC 4.43 L (4.7-6.1) M/uL Hgb 10.8 L (14.0-18.0) g/dL Hct 34.2 L (42-52) % MCV 77.2 L (80-100) fL MCH 24.4 L (25-34) pg MCHC 31.6 L (32-36) g/dL RDW Std Deviation 45.3 (36.4-46.3) fL RDW Coeff of Kiki 16.0 H (11.5-14.5) % Plt Count 240 (130-400) K/uL MPV 10.6 H (7.4-10.4) fL Immature Gran % (Auto) 0.2 % Neut % (Auto) 84.0 % Lymph % (Auto) 7.6 % Elbert % (Auto) 8.1 % Eos % (Auto) 0.0 % Baso % (Auto) 0.1 % Neut # (Auto) 8.54 H (1.4-6.5) K/uL Lymph # (Auto) 0.77 L (1.2-3.4) K/uL Elbert # (Auto) 0.82 H (0.11-0.59) K/uL Eos # (Auto) 0.00 (0-0.5) K/uL Baso # (Auto) 0.01 (0-0.2) K/uL Immature Gran # (Auto) 0.02 (0.00-0.02) K/uL PT 11.2 (9.0-12.0) Seconds INR 1.1 (0.9-1.1) APTT 25.9 (21.0-31.0) Seconds PTT Ratio 0.9 ABG pH (7.35-7.45) ABG pCO2 (35-46) mmHg ABG pO2 (80-95) mmHg ABG HCO3 (19-24) mmol/L ABG O2 Saturation (90-95) % ABG Base Excess (-9-1.8) mEq/L Conrado Test (Pos) Barometric Pressure mm/Hg Oxygen Given Sodium 140 (136-145) mmol/L Potassium 4.4 (3.5-5.1) mmol/L Chloride 108 H (98-107) mmol/L Carbon Dioxide 22 (21-32) mmol/L Anion Gap 10.0 (3-11) BUN 36 H (7-18) mg/dl Creatinine 1.49 H (0.6-1.4) mg/dl Est Cr Clr Drug Dosing 60.1 ml/min Est GFR ( Amer) 58.7 Est GFR (Non-Af Amer) 50.6 BUN/Creatinine Ratio 24.3 H (10-20) Glucose 170 H (70-99) mg/dl POC Glucose (70-99) mg/dl Lactate (0.4-2.0) mmol/L Calcium 9.3 (8.5-10.1) mg/dl Magnesium 1.9 (1.8-2.4) mg/dl Total Bilirubin 0.7 (0.2-1) mg/dl AST 38 H (15-37) U/L ALT 32 (12-78) U/L Alkaline Phosphatase 124 H (45-117) U/L Ammonia (11-32) umol/L Total Creatine Kinase (39-308) U/L Troponin I < 0.015 (0-0.045) ng/ml Total Protein 7.9 (6.4-8.2) gm/dl Albumin 4.0 (3.4-5.0) gm/dl Globulin 3.9 (2.5-4.0) gm/dl Albumin/Globulin Ratio 1.0 (0.9-2) TSH 0.443 (0.300-4.500) uIu/ml Urine Color Urine Appearance (Clear) Urine pH (4.5-7.5) Ur Specific [place] (1.000-1.030) Urine Protein (Negative) Urine Glucose (UA) (Negative) Urine Ketones (Negative) Urine Blood (Negative) Urine Nitrite (Negative) Urine Bilirubin (Negative) Urine Urobilinogen (Negative) Ur Leukocyte Esterase (Negative) Urine Opiates Screen (Neg) Ur Methadone, Qual (Neg) Acetaminophen (10-30) ug/ml Urine Barbiturates (Neg) Ur Phencyclidine (PCP) (Neg) U Amphetamin/Meth Scrn (Neg) MDMA (Ecstasy) Screen (Neg) U Benzodiazepines Scrn (Neg) Ur Cocaine Metabolite (Neg) U Marijuana (THC) Screen (Neg) Ethyl Alcohol mg/dL (0-3) mg/dl Hepatitis C Ab Screen (Neg) Blood Type Antibody Screen 05/19/20 05/19/20 05/19/20 Range/Units 17:13 17:13 17:27 WBC (4.8-10.8) K/uL RBC (4.7-6.1) M/uL Hgb (14.0-18.0) g/dL Hct (42-52) % MCV (80-100) fL MCH (25-34) pg MCHC (32-36) g/dL RDW Std Deviation (36.4-46.3) fL RDW Coeff of Kiki (11.5-14.5) % Plt Count (130-400) K/uL MPV (7.4-10.4) fL Immature Gran % (Auto) % Neut % (Auto) % Lymph % (Auto) % Elbert % (Auto) % Eos % (Auto) % Baso % (Auto) % Neut # (Auto) (1.4-6.5) K/uL Lymph # (Auto) (1.2-3.4) K/uL Elbert # (Auto) (0.11-0.59) K/uL Eos # (Auto) (0-0.5) K/uL Baso # (Auto) (0-0.2) K/uL Immature Gran # (Auto) (0.00-0.02) K/uL PT (9.0-12.0) Seconds INR (0.9-1.1) APTT (21.0-31.0) Seconds PTT Ratio ABG pH (7.35-7.45) ABG pCO2 (35-46) mmHg ABG pO2 (80-95) mmHg ABG HCO3 (19-24) mmol/L ABG O2 Saturation (90-95) % ABG Base Excess (-9-1.8) mEq/L Conrado Test (Pos) Barometric Pressure mm/Hg Oxygen Given Sodium (136-145) mmol/L Potassium (3.5-5.1) mmol/L Chloride (98-107) mmol/L Carbon Dioxide (21-32) mmol/L Anion Gap (3-11) BUN (7-18) mg/dl Creatinine (0.6-1.4) mg/dl Est Cr Clr Drug Dosing ml/min Est GFR ( Amer) Est GFR (Non-Af Amer) BUN/Creatinine Ratio (10-20) Glucose (70-99) mg/dl POC Glucose (70-99) mg/dl Lactate (0.4-2.0) mmol/L Calcium (8.5-10.1) mg/dl Magnesium (1.8-2.4) mg/dl Total Bilirubin (0.2-1) mg/dl AST (15-37) U/L ALT (12-78) U/L Alkaline Phosphatase (45-117) U/L Ammonia (11-32) umol/L Total Creatine Kinase 1169 H (39-308) U/L Troponin I (0-0.045) ng/ml Total Protein (6.4-8.2) gm/dl Albumin (3.4-5.0) gm/dl Globulin (2.5-4.0) gm/dl Albumin/Globulin Ratio (0.9-2) TSH (0.300-4.500) uIu/ml Urine Color Urine Appearance (Clear) Urine pH (4.5-7.5) Ur Specific [place] (1.000-1.030) Urine Protein (Negative) Urine Glucose (UA) (Negative) Urine Ketones (Negative) Urine Blood (Negative) Urine Nitrite (Negative) Urine Bilirubin (Negative) Urine Urobilinogen (Negative) Ur Leukocyte Esterase (Negative) Urine Opiates Screen (Neg) Ur Methadone, Qual (Neg) Acetaminophen (10-30) ug/ml Urine Barbiturates (Neg) Ur Phencyclidine (PCP) (Neg) U Amphetamin/Meth Scrn (Neg) MDMA (Ecstasy) Screen (Neg) U Benzodiazepines Scrn (Neg) Ur Cocaine Metabolite (Neg) U Marijuana (THC) Screen (Neg) Ethyl Alcohol mg/dL < 3.0 (0-3) mg/dl Hepatitis C Ab Screen Neg (Neg) Blood Type Antibody Screen 05/19/20 05/19/20 05/19/20 Range/Units 18:05 18:17 20:34 WBC (4.8-10.8) K/uL RBC (4.7-6.1) M/uL Hgb (14.0-18.0) g/dL Hct (42-52) % MCV (80-100) fL MCH (25-34) pg MCHC (32-36) g/dL RDW Std Deviation (36.4-46.3) fL RDW Coeff of Kiki (11.5-14.5) % Plt Count (130-400) K/uL MPV (7.4-10.4) fL Immature Gran % (Auto) % Neut % (Auto) % Lymph % (Auto) % Elbert % (Auto) % Eos % (Auto) % Baso % (Auto) % Neut # (Auto) (1.4-6.5) K/uL Lymph # (Auto) (1.2-3.4) K/uL Elbert # (Auto) (0.11-0.59) K/uL Eos # (Auto) (0-0.5) K/uL Baso # (Auto) (0-0.2) K/uL Immature Gran # (Auto) (0.00-0.02) K/uL PT (9.0-12.0) Seconds INR (0.9-1.1) APTT (21.0-31.0) Seconds PTT Ratio ABG pH 7.48 H (7.35-7.45) ABG pCO2 28 L (35-46) mmHg ABG pO2 93 (80-95) mmHg ABG HCO3 20 (19-24) mmol/L ABG O2 Saturation 97.7 H (90-95) % ABG Base Excess -2.8 (-9-1.8) mEq/L Conrado Test POS (Pos) Barometric Pressure 730.2 mm/Hg Oxygen Given ROOM AIR Sodium (136-145) mmol/L Potassium (3.5-5.1) mmol/L Chloride (98-107) mmol/L Carbon Dioxide (21-32) mmol/L Anion Gap (3-11) BUN (7-18) mg/dl Creatinine (0.6-1.4) mg/dl Est Cr Clr Drug Dosing ml/min Est GFR ( Amer) Est GFR (Non-Af Amer) BUN/Creatinine Ratio (10-20) Glucose (70-99) mg/dl POC Glucose (70-99) mg/dl Lactate (0.4-2.0) mmol/L Calcium (8.5-10.1) mg/dl Magnesium (1.8-2.4) mg/dl Total Bilirubin (0.2-1) mg/dl AST (15-37) U/L ALT (12-78) U/L Alkaline Phosphatase (45-117) U/L Ammonia 11.0 (11-32) umol/L Total Creatine Kinase (39-308) U/L Troponin I (0-0.045) ng/ml Total Protein (6.4-8.2) gm/dl Albumin (3.4-5.0) gm/dl Globulin (2.5-4.0) gm/dl Albumin/Globulin Ratio (0.9-2) TSH (0.300-4.500) uIu/ml Urine Color Urine Appearance (Clear) Urine pH (4.5-7.5) Ur Specific [place] (1.000-1.030) Urine Protein (Negative) Urine Glucose (UA) (Negative) Urine Ketones (Negative) Urine Blood (Negative) Urine Nitrite (Negative) Urine Bilirubin (Negative) Urine Urobilinogen (Negative) Ur Leukocyte Esterase (Negative) Urine Opiates Screen (Neg) Ur Methadone, Qual (Neg) Acetaminophen 11 (10-30) ug/ml Urine Barbiturates (Neg) Ur Phencyclidine (PCP) (Neg) U Amphetamin/Meth Scrn (Neg) MDMA (Ecstasy) Screen (Neg) U Benzodiazepines Scrn (Neg) Ur Cocaine Metabolite (Neg) U Marijuana (THC) Screen (Neg) Ethyl Alcohol mg/dL (0-3) mg/dl Hepatitis C Ab Screen (Neg) Blood Type Antibody Screen 05/19/20 05/19/20 05/19/20 Range/Units 20:34 20:34 20:34 WBC (4.8-10.8) K/uL RBC (4.7-6.1) M/uL Hgb 9.9 L (14.0-18.0) g/dL Hct 30.3 L (42-52) % MCV (80-100) fL MCH (25-34) pg MCHC (32-36) g/dL RDW Std Deviation (36.4-46.3) fL RDW Coeff of Kiki (11.5-14.5) % Plt Count (130-400) K/uL MPV (7.4-10.4) fL Immature Gran % (Auto) % Neut % (Auto) % Lymph % (Auto) % Elbert % (Auto) % Eos % (Auto) % Baso % (Auto) % Neut # (Auto) (1.4-6.5) K/uL Lymph # (Auto) (1.2-3.4) K/uL Elbert # (Auto) (0.11-0.59) K/uL Eos # (Auto) (0-0.5) K/uL Baso # (Auto) (0-0.2) K/uL Immature Gran # (Auto) (0.00-0.02) K/uL PT (9.0-12.0) Seconds INR (0.9-1.1) APTT (21.0-31.0) Seconds PTT Ratio ABG pH (7.35-7.45) ABG pCO2 (35-46) mmHg ABG pO2 (80-95) mmHg ABG HCO3 (19-24) mmol/L ABG O2 Saturation (90-95) % ABG Base Excess (-9-1.8) mEq/L Conrado Test (Pos) Barometric Pressure mm/Hg Oxygen Given Sodium 142 (136-145) mmol/L Potassium 4.0 (3.5-5.1) mmol/L Chloride 111 H (98-107) mmol/L Carbon Dioxide 18 L (21-32) mmol/L Anion Gap 12.0 H (3-11) BUN 32 H (7-18) mg/dl Creatinine 1.24 (0.6-1.4) mg/dl Est Cr Clr Drug Dosing 72.2 ml/min Est GFR ( Amer) 73.3 Est GFR (Non-Af Amer) 63.2 BUN/Creatinine Ratio 25.6 H (10-20) Glucose 170 H (70-99) mg/dl POC Glucose (70-99) mg/dl Lactate (0.4-2.0) mmol/L Calcium 8.7 (8.5-10.1) mg/dl Magnesium (1.8-2.4) mg/dl Total Bilirubin (0.2-1) mg/dl AST (15-37) U/L ALT (12-78) U/L Alkaline Phosphatase (45-117) U/L Ammonia (11-32) umol/L Total Creatine Kinase (39-308) U/L Troponin I (0-0.045) ng/ml Total Protein (6.4-8.2) gm/dl Albumin (3.4-5.0) gm/dl Globulin (2.5-4.0) gm/dl Albumin/Globulin Ratio (0.9-2) TSH (0.300-4.500) uIu/ml Urine Color Urine Appearance (Clear) Urine pH (4.5-7.5) Ur Specific [place] (1.000-1.030) Urine Protein (Negative) Urine Glucose (UA) (Negative) Urine Ketones (Negative) Urine Blood (Negative) Urine Nitrite (Negative) Urine Bilirubin (Negative) Urine Urobilinogen (Negative) Ur Leukocyte Esterase (Negative) Urine Opiates Screen (Neg) Ur Methadone, Qual (Neg) Acetaminophen (10-30) ug/ml Urine Barbiturates (Neg) Ur Phencyclidine (PCP) (Neg) U Amphetamin/Meth Scrn (Neg) MDMA (Ecstasy) Screen (Neg) U Benzodiazepines Scrn (Neg) Ur Cocaine Metabolite (Neg) U Marijuana (THC) Screen (Neg) Ethyl Alcohol mg/dL (0-3) mg/dl Hepatitis C Ab Screen (Neg) Blood Type B Positive Antibody Screen NEGATIVE 05/19/20 05/19/20 05/19/20 Range/Units 20:40 20:51 20:51 WBC (4.8-10.8) K/uL RBC (4.7-6.1) M/uL Hgb (14.0-18.0) g/dL Hct (42-52) % MCV (80-100) fL MCH (25-34) pg MCHC (32-36) g/dL RDW Std Deviation (36.4-46.3) fL RDW Coeff of Kiki (11.5-14.5) % Plt Count (130-400) K/uL MPV (7.4-10.4) fL Immature Gran % (Auto) % Neut % (Auto) % Lymph % (Auto) % Elbert % (Auto) % Eos % (Auto) % Baso % (Auto) % Neut # (Auto) (1.4-6.5) K/uL Lymph # (Auto) (1.2-3.4) K/uL Elbert # (Auto) (0.11-0.59) K/uL Eos # (Auto) (0-0.5) K/uL Baso # (Auto) (0-0.2) K/uL Immature Gran # (Auto) (0.00-0.02) K/uL PT (9.0-12.0) Seconds INR (0.9-1.1) APTT (21.0-31.0) Seconds PTT Ratio ABG pH (7.35-7.45) ABG pCO2 (35-46) mmHg ABG pO2 (80-95) mmHg ABG HCO3 (19-24) mmol/L ABG O2 Saturation (90-95) % ABG Base Excess (-9-1.8) mEq/L Conrado Test (Pos) Barometric Pressure mm/Hg Oxygen Given Sodium (136-145) mmol/L Potassium (3.5-5.1) mmol/L Chloride (98-107) mmol/L Carbon Dioxide (21-32) mmol/L Anion Gap (3-11) BUN (7-18) mg/dl Creatinine (0.6-1.4) mg/dl Est Cr Clr Drug Dosing ml/min Est GFR ( Amer) Est GFR (Non-Af Amer) BUN/Creatinine Ratio (10-20) Glucose (70-99) mg/dl POC Glucose (70-99) mg/dl Lactate 1.0 (0.4-2.0) mmol/L Calcium (8.5-10.1) mg/dl Magnesium (1.8-2.4) mg/dl Total Bilirubin (0.2-1) mg/dl AST (15-37) U/L ALT (12-78) U/L Alkaline Phosphatase (45-117) U/L Ammonia (11-32) umol/L Total Creatine Kinase (39-308) U/L Troponin I (0-0.045) ng/ml Total Protein (6.4-8.2) gm/dl Albumin (3.4-5.0) gm/dl Globulin (2.5-4.0) gm/dl Albumin/Globulin Ratio (0.9-2) TSH (0.300-4.500) uIu/ml Urine Color Yellow Urine Appearance Clear (Clear) Urine pH 5.0 (4.5-7.5) Ur Specific [place] 1.020 (1.000-1.030) Urine Protein Negative (Negative) Urine Glucose (UA) Negative (Negative) Urine Ketones 3+ H (Negative) Urine Blood Negative (Negative) Urine Nitrite Negative (Negative) Urine Bilirubin Negative (Negative) Urine Urobilinogen Negative (Negative) Ur Leukocyte Esterase Negative (Negative) Urine Opiates Screen Neg (Neg) Ur Methadone, Qual Neg (Neg) Acetaminophen (10-30) ug/ml Urine Barbiturates Neg (Neg) Ur Phencyclidine (PCP) Neg (Neg) U Amphetamin/Meth Scrn Neg (Neg) MDMA (Ecstasy) Screen Neg (Neg) U Benzodiazepines Scrn Neg (Neg) Ur Cocaine Metabolite Neg (Neg) U Marijuana (THC) Screen Neg (Neg) Ethyl Alcohol mg/dL (0-3) mg/dl Hepatitis C Ab Screen (Neg) Blood Type Antibody Screen 05/19/20 Range/Units 23:40 WBC (4.8-10.8) K/uL RBC (4.7-6.1) M/uL Hgb (14.0-18.0) g/dL Hct (42-52) % MCV (80-100) fL MCH (25-34) pg MCHC (32-36) g/dL RDW Std Deviation (36.4-46.3) fL RDW Coeff of Kiki (11.5-14.5) % Plt Count (130-400) K/uL MPV (7.4-10.4) fL Immature Gran % (Auto) % Neut % (Auto) % Lymph % (Auto) % Elbert % (Auto) % Eos % (Auto) % Baso % (Auto) % Neut # (Auto) (1.4-6.5) K/uL Lymph # (Auto) (1.2-3.4) K/uL Elbert # (Auto) (0.11-0.59) K/uL Eos # (Auto) (0-0.5) K/uL Baso # (Auto) (0-0.2) K/uL Immature Gran # (Auto) (0.00-0.02) K/uL PT (9.0-12.0) Seconds INR (0.9-1.1) APTT (21.0-31.0) Seconds PTT Ratio ABG pH (7.35-7.45) ABG pCO2 (35-46) mmHg ABG pO2 (80-95) mmHg ABG HCO3 (19-24) mmol/L ABG O2 Saturation (90-95) % ABG Base Excess (-9-1.8) mEq/L Conrado Test (Pos) Barometric Pressure mm/Hg Oxygen Given Sodium (136-145) mmol/L Potassium (3.5-5.1) mmol/L Chloride (98-107) mmol/L Carbon Dioxide (21-32) mmol/L Anion Gap (3-11) BUN (7-18) mg/dl Creatinine (0.6-1.4) mg/dl Est Cr Clr Drug Dosing ml/min Est GFR ( Amer) Est GFR (Non-Af Amer) BUN/Creatinine Ratio (10-20) Glucose (70-99) mg/dl POC Glucose 177 H (70-99) mg/dl Lactate (0.4-2.0) mmol/L Calcium (8.5-10.1) mg/dl Magnesium (1.8-2.4) mg/dl Total Bilirubin (0.2-1) mg/dl AST (15-37) U/L ALT (12-78) U/L Alkaline Phosphatase (45-117) U/L Ammonia (11-32) umol/L Total Creatine Kinase (39-308) U/L Troponin I (0-0.045) ng/ml Total Protein (6.4-8.2) gm/dl Albumin (3.4-5.0) gm/dl Globulin (2.5-4.0) gm/dl Albumin/Globulin Ratio (0.9-2) TSH (0.300-4.500) uIu/ml Urine Color Urine Appearance (Clear) Urine pH (4.5-7.5) Ur Specific [place] (1.000-1.030) Urine Protein (Negative) Urine Glucose (UA) (Negative) Urine Ketones (Negative) Urine Blood (Negative) Urine Nitrite (Negative) Urine Bilirubin (Negative) Urine Urobilinogen (Negative) Ur Leukocyte Esterase (Negative) Urine Opiates Screen (Neg) Ur Methadone, Qual (Neg) Acetaminophen (10-30) ug/ml Urine Barbiturates (Neg) Ur Phencyclidine (PCP) (Neg) U Amphetamin/Meth Scrn (Neg) MDMA (Ecstasy) Screen (Neg) U Benzodiazepines Scrn (Neg) Ur Cocaine Metabolite (Neg) U Marijuana (THC) Screen (Neg) Ethyl Alcohol mg/dL (0-3) mg/dl Hepatitis C Ab Screen (Neg) Blood Type Antibody Screen Diagnostic Findings CT head: There is no hemorrhage, mass effect, or evidence of acute territorial ischemia by CT criteria. CT cervical spine: 1. There is no evidence of fracture or subluxation involving the cervical spine. 2. Osteopenia and advanced spondylotic change as above. CT face: There is no evidence of facial bone fracture. Chest x-ray: No active disease Pelvic x-ray: 1. No acute bony abnormality is identified. 2. Chronic deformity of the left proximal femur is similar to prior studies. Left knee x-ray: Distal femoral fracture as above with associated joint effusion and soft tissue edema. EKG as per my interpretation : Rate 140, sinus tachycardia, normal axis, ST depression lateral leads
[2020-05-19] MEDS ORDERED: OXYCODONE HCL IR 5 MG TAB (IMMEDIATE RELEASE) PO STA (20:19)
[2020-05-19 20:50] LABS: Hematocrit (blood only) 30.3 % (42-52); Hemoglobin 9.9 g/dL (14.0-18.0)
[2020-05-19 21:08] LABS: BUN Creatinine Ratio 25.6 (10-20); Calcium 8.7 mg/dl (8.5-10.1); Creatinine Clr Calc Pharmacy 72.2 ml/min; Est GFR (African American) 73.3; Est GFR (Non-African American) 63.2
[2020-05-19 21:10] LABS: Appearance Urine Clear (Clear); Bilirubin Urine Negative (Negative); Blood Urine Negative (Negative); Color Urine Yellow; Glucose Urine UA Negative (Negative); Ketones Urine 3+ (Negative); Leukocyte Esterase Urine Negative (Negative); Nitrite Urine Negative (Negative); Protein Urine Negative (Negative); Urobilinogen Urine Negative (Negative)
[2020-05-19 21:37] LABS: Amphetamines+Metham, Urine Neg (Neg); Barbiturates, Urine Neg (Neg); Benzodiazepine, Urine Neg (Neg); Cocaine, Urine Neg (Neg); MDMA (Ecstacy), Urine Neg (Neg); Methadone, Urine Neg (Neg); Opiate, Urine Neg (Neg); Phencyclidine, Urine Neg (Neg)
[2020-05-19] MEDS ORDERED: GLUCOSE 10 TABS/TUBE PO PRN (22:30)
[2020-05-19] MEDS ORDERED: CARBOHYDRATES FOR HYPOGLYCEMIA PO PRN (22:30)
[2020-05-19] MEDS ORDERED: INSULIN ASPART 100 UNITS/ML 3 ML PEN SC SCH (22:30)
[2020-05-19] MEDS ORDERED: GLUCAGON FOR INJ 1 MG VIAL SQ PRN (22:30)
[2020-05-19] MEDS ORDERED: DEXTROSE 50% 50 ML SYRINGE IV PRN (22:30)
[2020-05-19] MEDS ORDERED: GLUCOSE 40% GEL 15 GM TUBE PO PRN (22:30)
[2020-05-19] MEDS ORDERED: PROMETHAZINE HCL 12.5 MG in SODIUM CHLORIDE 0.9% 50 ML IV PRN (22:30)
[2020-05-19] MEDS ORDERED: MoRPHine SULFATE 2 MG/ML CARP IV PRN (22:42)
--- NOTE | 2020-05-19 23:39 | Ultrasound Report ---
ULTRASOUND LEFT LOWER EXTREMITY VENOUS CLINICAL HISTORY: Left leg swelling. COMPARISON STUDY: Left lower extremity venous ultrasound dated 06/30/2015. TECHNIQUE: Real-time, grayscale, and color Doppler sonography of the deep veins of the left lower ext remity was performed from the inguinal crease to the calf. Compression and augmentation were utilized . FINDINGS: There is deep venous thrombosis identified in the calf within the posterior tibial and maria de jesus lori veins. There is no sonographic evidence of above knee deep venous thrombosis identified in the l eft lower extremity. The common femoral, superficial femoral, and popliteal veins are patent and norm ally compressible. The greater saphenous vein and the profunda femoris vein at the junction with the common femoral vein are clear. IMPRESSION: There is deep venous thrombosis identified in the left calf as detailed above. ACT 112: Negative or not required by law. Electronically signed by: Rommel Rodríguez M.D. 05/19/2020 11:37 PM
[2020-05-20] MEDS: DOCUSATE SODIUM 100 MG CAP PO SCH ×3 (00:10→20:23)
[2020-05-20] MEDS: AMLODIPINE BESYLATE 5 MG TAB PO SCH ×2 (00:11→20:24)
[2020-05-20] MEDS: METOPROLOL TARTRATE 50 MG TAB PO SCH ×3 (00:11→20:23)
[2020-05-20] MEDS ORDERED: METOPROLOL TARTRATE 1 MG/ML VIAL IV STA (00:22)
[2020-05-20] MEDS ORDERED: KETOROLAC TROMETHAMINE 15 MG/ML VIAL IV ONE (00:22)
[2020-05-20] MEDS: LACTATED RINGER'S 1,000 ML IV SCH ×4 (01:30→19:19)
[2020-05-20] MEDS: OXYCODONE HCL IR 5 MG TAB (IMMEDIATE RELEASE) PO PRN ×2 (01:45→07:36)
[2020-05-20] MEDS ORDERED: Nursing to Pharmacy Communication SCH (01:45)
[2020-05-20] MEDS ORDERED: THIAMINE HCL 100 MG in SYRINGE 9 ML IV STA (03:00)
[2020-05-20] MEDS ORDERED: LORazepam 3 MG/6 ML VIAL IV PRN (03:01)
[2020-05-20] MEDS ORDERED: LORazepam 1 MG/2 ML VIAL IV PRN (03:01)
[2020-05-20] MEDS ORDERED: LORazepam 2 MG/4 ML VIAL IV PRN (03:01)
[2020-05-20] MEDS ORDERED: ATIVAN IV ALCOHOL WITHDRAWL IV PRN (03:01)
[2020-05-20] MEDS: MoRPHine SULFATE 4 MG/ML 1 ML CARP\\VIAL IV PRN ×3 (04:55→20:29)
[2020-05-20] MEDS: PANTOprazole 40 MG TAB PO SCH (05:37)
[2020-05-20] MEDS: INSULIN ASPART 100 UNITS/ML 3 ML PEN SC SCH ×3 (05:42→17:48)
[2020-05-20 07:04] LABS: Basophils # (auto) 0.01 K/uL (0-0.2); Basophils % (auto) 0.1 %; Eosinophils # (auto) 0.02 K/uL (0-0.5); Eosinophils % (auto) 0.2 %; Hematocrit (blood only) 28.9 % (42-52); Hemoglobin 9.3 g/dL (14.0-18.0); Immature Granulocytes # (auto) 0.04 K/uL (0.00-0.02); Immature Granulocytes % (auto) 0.5 %; Lymphocytes # (auto) 0.89 K/uL (1.2-3.4); Lymphocytes % (auto) 10.3 %; Mean Corpuscular Hemoglobin 24.7 pg (25-34); Mean Corpuscular Hgb Conc 32.2 g/dL (32-36); Mean Corpuscular Volume 76.9 fL (80-100); Mean Platelet Volume 10.6 fL (7.4-10.4); Monocytes # (auto) 0.77 K/uL (0.11-0.59); Monocytes % (auto) 8.9 %; Neutrophils # (auto) 6.93 K/uL (1.4-6.5); Platelet Count 193 K/uL (130-400); RDW Standard Deviation 45.1 fL (36.4-46.3); Red Blood Count 3.76 M/uL (4.7-6.1); White Blood Count 8.66 K/uL (4.8-10.8)
[2020-05-20 07:20] LABS: BUN Creatinine Ratio 26.7 (10-20); Calcium 8.2 mg/dl (8.5-10.1); Creatinine Clr Calc Pharmacy 66.7 ml/min; Est GFR (African American) 78.6; Est GFR (Non-African American) 67.8; Potassium 4.2 mmol/L (3.5-5.1)
[2020-05-20] MEDS: ACETAMINOPHEN 325 MG TAB PO PRN (07:36)
[2020-05-20] MEDS: cephALEXin 500 MG CAP PO SCH ×3 (07:37→20:23)
[2020-05-20] MEDS ORDERED: DOXYCYCLINE HYCLATE 100 MG CAP PO SCH (09:00)
[2020-05-20] MEDS ORDERED: [UNRECOGNIZED DRUG - OTHER] PRN (09:00)
[2020-05-20] MEDS ORDERED: FOLIC ACID 1 MG TAB PO SCH (09:00)
--- NOTE | 2020-05-20 09:23 | Consultation ---
Date of Consultation May 20, 2020 Assessment & Plan (1) Deep vein thrombosis: Pt with LLE DVT and femur fx. Pt tentatively scheduled for ORIF of LLE femur by orthopedics later today. IF deemed safe to restart AC within 4 hr after orthopedic surgery today, pt will not require IVC filter insertion. If AC required to be held longer than 4 hrs, then pt will need IVC filter insertion. Attempted to discuss with orthopedics, but unable d/t scheduled surgeries. Will discuss witih them later today. Discussed with pt, however, pt is disoriented, so will need to discuss with daughter as well. Patient was seen, examined, and chart reviewed. Agree with exam and treatment plan of the Vascular PA. Will place filter today. I have discussed the risks options and benefits of the procedure with the patient. The patient understands the risks options and benefits and agrees to the procedure. History of Present Illness Reason for Consultation: LLE DVT, femur fx Attending Physician: Britt Salazar MD History of Present Illness 59 yo m with multiple medical problems, including HTN, DMII, mood disorder, polysubstance abuse, chronic pain, dyslipidemia, raynaud's disease, admitted with L femur fx adn AMS after fall at home. Pt states he fell out of bed. Pt admits severe pain in LLE, 07/10. Denies MCDONALD, fever, recent illness, chest pain, SOB, abd pain, N/V, rest pain, claudication, other complaints. Pt venous US demonstrates LLE DVT in calf veins. Allergies Allergy/AdvReac Type Severity Reaction Status Date / Time simvastatin Allergy Unknown MUSCLE Verified 05/19/20 17:18 WEAKNESS,TINGLING haloperidol [From Haldol] AdvReac Unknown Unknown Verified 05/19/20 17:18 Home Medications Home Medications Medication Instructions Recorded Confirmed Type Victoza 3-Toni 1.2 mg SUBCUT QAM 11/03/18 05/19/20 History amlodipine [Norvasc] 10 mg PO HS 11/03/18 05/19/20 History docusate sodium [DOK] 100 mg PO BID 11/03/18 05/19/20 History fexofenadine [Carmen Allergy] 180 mg PO DAILY PRN 11/03/18 05/19/20 History fluticasone propionate [Flonase 1 spray INTRANASAL BID PRN 11/03/18 05/19/20 History Allergy Relief] gabapentin 400 mg PO TID 11/03/18 05/19/20 History guaifenesin [Mucinex] 600 mg PO Q12H PRN 11/03/18 05/19/20 History indapamide 2.5 mg PO HS 11/03/18 05/19/20 History ipratropium bromide 2 spray INTRANASAL QID PRN 11/03/18 05/19/20 History ketoconazole 1 applic TOPICAL WK 11/03/18 05/19/20 History lisinopril 40 mg PO HS 11/03/18 05/19/20 History meloxicam 7.5 mg PO BID 11/03/18 05/19/20 History metaxalone 800 mg PO TID 11/03/18 05/19/20 History metformin 850 mg PO BIDM 11/03/18 05/19/20 History metoprolol tartrate 50 mg PO BID 11/03/18 05/19/20 History multivitamin 1 tab PO QDD 11/03/18 05/19/20 History oxycodone 5 mg PO BID PRN 11/03/18 05/19/20 History pioglitazone [Actos] 30 mg PO QAM 11/03/18 05/19/20 History acetaminophen [Tylenol 8 Hour] 650 mg PO DIRECTED PRN 11/29/19 05/19/20 History oxycodone [OxyContin] 20 mg PO BID PRN 12/04/19 05/19/20 History rosuvastatin [Crestor] 20 mg PO DAILY 12/04/19 05/19/20 History baclofen 40 mg PO HS #28 tab 12/08/19 05/19/20 Rx [id number] 1 tab PO QAM #14 tab 12/08/19 05/19/20 Rx [Caltrate 600-D Plus Minerals] cephalexin 500 mg capsule 500 mg PO BID #60 cap 01/23/20 05/19/20 Rx dextroamphetamine-amphetamine ER 20 mg PO DAILY 01/23/20 05/19/20 History 20 mg 24hr capsule,extend release amitriptyline 25 mg PO HS 05/19/20 05/19/20 History aspirin [Aspir-81] 81 mg PO DAILY 05/19/20 05/19/20 History fluoxetine 60 mg PO QAM 05/19/20 05/19/20 History omeprazole 20 mg PO DAILYBB 05/19/20 05/19/20 History Patient History Medical History Benzodiazepine abuse Chronic pain (Chronic) Deep vein thrombosis Delirium Diabetic foot ulcer associated with type 2 diabetes mellitus Diverticulosis (Chronic) DM type 2 (diabetes mellitus, type 2) (Chronic) Dyslipidemia (Chronic) Femur fracture (Chronic) "S/P repair" History of septic arthritis (Chronic) Hypertension (Chronic) Mood disorder Opiate abuse, continuous NARINDER on CPAP (Chronic) Psychosis Raynaud disease (Chronic) Surgical History H/O hand surgery (Chronic) History of carpal tunnel surgery (Chronic) S/P left knee arthroscopy (Chronic) Status post total knee replacement, right (Chronic) Family History Other Family history non-contributory Social History Smoking Status: Former smoker Second Hand Exposure: No; Hx Alcohol Use: Yes Alcohol type: beer and hard liquor Hx Substance Use: No Preferred Language: Lithuanian Communication Ability: Effective Form Setter Required: No Beliefs That Will Affect Care: None Current Living Situation: Alone Other Information That Helps Us Care for You: No Feels Safe at Home: Yes Safety Concerns: Feels Safe At This Time Review of Systems Review of Systems: All systems reviewed & are unremarkable except as noted in HPI & below (Pt with noted confusion, but denies other complaints. ) Physical Exam Constitutional: WD/WN, vitals as above + ill appearing (chronically), + disheveled, cooperative and comfortable; not in distress Eyes: PERRL, conjunctivae normal, anicteric sclerae ENMT: Nose: + facial exam abnormality (BL eye ecchymosis, nasal bridge abrasions and edema. ) Neck: normal visual inspection Respiratory: normal respiratory effort, lungs clear to auscultation Auscultation: + diminished lung sounds Cardiovascular: Rate/Rhythm: regular rate and regular rhythm Vessels: femoral pulses present, posterior tibial pulses present, dorsalis pedis pulses present, brachial pulses present and radial pulses present; + abnormal peripheral pulses Extremities: normal capillary refill and + edema (LLE) Gastrointestinal (Abdomen): normal bowel sounds, soft, nontender, no hepatosplenomegaly Musculoskeletal: Extremities: + extremities abnormal to inspection (LLE splint in place, +edema) Skin: no rashes, warm and dry Neurologic: moves all extremities, awake and + confused; no focal motor deficits Psychiatric: Orientation: alert, oriented to person and oriented to place; + not oriented to time Eye Contact: + poor eye contact Affect: + depressed affect and + flat affect Results & Data Vital Signs (Past 12 Hours) Vital Signs Temp Pulse Pulse Resp BP Pulse Ox 05/20/20 07:18 37.0 C 102 H 18 145/79 H 94 05/20/20 05:32 36.8 C 97 H 20 121/81 94 05/20/20 00:00 122 H 05/19/20 23:43 36.9 C 120 H 18 143/81 H 95 05/19/20 21:56 37.4 C 117 H 20 160/90 H 97
--- NOTE | 2020-05-20 09:53 | Orthopedic Consultation ---
Date of Consultation May 20, 2020 Assessment & Plan (1) Deep vein thrombosis: I have spoken with the hospitalist service. They are consulting Dr. Fleming for IVC placement tomorrow before surgery. He will be anticoagulated with heparin today and this will be stopped at least 6 hours prior to surgery. (2) Fracture of distal end of femur: Films have been reviewed by Dr. Rodriguez. Anticipate ORIF of the distal femur tomorrow. Patient is nonweightbearing at this point. He is n.p.o. Patient did have his medications today with approximately half a glass of water. This was around 9:30 AM. He may eat today and will be NPO after midnight. Jose nowak verbalizes understanding his need for surgery. He is in agreement. He is currently in a knee immobilizer which must be left in place until the time of surgical fixation. Strict nonweightbearing on the left leg. We will proceed once he is medically cleared. Continue pain medication as ordered. Hospitalis will order COVID testing today. History of Present Illness Reason for Consultation: Left distal femur fracture Attending Physician: Britt Salazar MD History of Present Illness This 59-year-old white male is seen today in room 219, for orthopedic consultation for a left distal femur fracture. Patient was admitted with altered mental status yesterday. He was last seen in his normal state on Tuesday. At some point over the weekend he fell and sustained the femur fracture. His home health nurse visited him on Tuesday, but he did not answer the door. After multiple attempts at contacting him, EMS was contacted. They found the patient in his house with altered mental status and evidence of facial trauma. He was confused on initial ED evaluation. Mental status has improved but is not back to normal baseline at this point. He complains of pain in his left knee and left great toe. He denies any numbness or tingling. Patient is currently in a knee immobilizer. No other complaints. He is well-known to our office for extensive orthopedic care. Allergies Allergy/AdvReac Type Severity Reaction Status Date / Time simvastatin Allergy Unknown MUSCLE Verified 05/19/20 17:18 WEAKNESS,TINGLING haloperidol [From Haldol] AdvReac Unknown Unknown Verified 05/19/20 17:18 Home Medications Home Medications Medication Instructions Recorded Confirmed Type Victoza 3-Toni 1.2 mg SUBCUT QAM 11/03/18 05/19/20 History amlodipine [Norvasc] 10 mg PO HS 11/03/18 05/19/20 History docusate sodium [DOK] 100 mg PO BID 11/03/18 05/19/20 History fexofenadine [Carmen Allergy] 180 mg PO DAILY PRN 11/03/18 05/19/20 History fluticasone propionate [Flonase 1 spray INTRANASAL BID PRN 11/03/18 05/19/20 History Allergy Relief] gabapentin 400 mg PO TID 11/03/18 05/19/20 History guaifenesin [Mucinex] 600 mg PO Q12H PRN 11/03/18 05/19/20 History indapamide 2.5 mg PO HS 11/03/18 05/19/20 History ipratropium bromide 2 spray INTRANASAL QID PRN 11/03/18 05/19/20 History ketoconazole 1 applic TOPICAL WK 11/03/18 05/19/20 History lisinopril 40 mg PO HS 11/03/18 05/19/20 History meloxicam 7.5 mg PO BID 11/03/18 05/19/20 History metaxalone 800 mg PO TID 11/03/18 05/19/20 History metformin 850 mg PO BIDM 11/03/18 05/19/20 History metoprolol tartrate 50 mg PO BID 11/03/18 05/19/20 History multivitamin 1 tab PO QDD 11/03/18 05/19/20 History oxycodone 5 mg PO BID PRN 11/03/18 05/19/20 History pioglitazone [Actos] 30 mg PO QAM 11/03/18 05/19/20 History acetaminophen [Tylenol 8 Hour] 650 mg PO DIRECTED PRN 11/29/19 05/19/20 History oxycodone [OxyContin] 20 mg PO BID PRN 12/04/19 05/19/20 History rosuvastatin [Crestor] 20 mg PO DAILY 12/04/19 05/19/20 History baclofen 40 mg PO HS #28 tab 12/08/19 05/19/20 Rx [id number] 1 tab PO QAM #14 tab 12/08/19 05/19/20 Rx [Caltrate 600-D Plus Minerals] cephalexin 500 mg capsule 500 mg PO BID #60 cap 01/23/20 05/19/20 Rx dextroamphetamine-amphetamine ER 20 mg PO DAILY 01/23/20 05/19/20 History 20 mg 24hr capsule,extend release amitriptyline 25 mg PO HS 05/19/20 05/19/20 History aspirin [Aspir-81] 81 mg PO DAILY 05/19/20 05/19/20 History fluoxetine 60 mg PO QAM 05/19/20 05/19/20 History omeprazole 20 mg PO DAILYBB 05/19/20 05/19/20 History Patient History Medical History Benzodiazepine abuse Chronic pain (Chronic) Deep vein thrombosis Delirium Diabetic foot ulcer associated with type 2 diabetes mellitus Diverticulosis (Chronic) DM type 2 (diabetes mellitus, type 2) (Chronic) Dyslipidemia (Chronic) Femur fracture (Chronic) "S/P repair" History of septic arthritis (Chronic) Hypertension (Chronic) Mood disorder Opiate abuse, continuous NARINDER on CPAP (Chronic) Psychosis Raynaud disease (Chronic) Surgical History H/O hand surgery (Chronic) History of carpal tunnel surgery (Chronic) S/P left knee arthroscopy (Chronic) Status post total knee replacement, right (Chronic) Family History Other Family history non-contributory Social History Smoking Status: Former smoker Second Hand Exposure: No; Hx Alcohol Use: Yes Alcohol type: beer and hard liquor Hx Substance Use: No Preferred Language: Ethiopian Communication Ability: Effective Brake Assembler Required: No Beliefs That Will Affect Care: None Current Living Situation: Alone Other Information That Helps Us Care for You: No Feels Safe at Home: Yes Safety Concerns: Feels Safe At This Time Review of Systems Review of Systems: All systems reviewed & are unremarkable except as noted in HPI & below 10 systems were reviewed. Physical Exam Physical Exam: General: Well-developed, well-nourished, middle-aged white male, in no acute distress. Mildly confused. Sitting in his bed. Oriented to place. Not oriented to time. Skin: Warm and dry with fair turgor. No rashes or lesions. Extensive ecchymosis on his face as well as over his left knee. Small abrasion is present over the patella of the left knee. Scab is present. No actively draining lesions. No erythema. The patient is not diaphoretic. HEENT: Normocephalic atraumatic. Eyes PERRLA, EOMI. No conjunctiva or scleral injection. Nasal and oropharynx exams were deferred due to COVID precautions. Heart: Heart RRR. No MGR. Peripheral pulses are 2+. Lungs: Lungs are clear to auscultation. No crackles rhonchi or wheezing. Good air movement. The patient is able to take a deep breath. Abdomen: Abdomen was inspected, auscultated, and palpated. Obese. Bowel sounds present x 4. Soft, nontender to palpation. No hepato-splenomegaly. No masses noted. No rebound. Musculoskeletal: Left knee evaluation reveals above-stated effusion and ecchymosis. Range of motion was not attempted. He does have intact motor function to the ankle and toes. Strength is 5/5 resisted plantarflexion and dorsiflexion as well as inversion and eversion. Arthritic changes are visible in his toes. Neurologic: Gross sensation is intact across left leg by soft touch. Peripheral pulses are 2+. Results & Data ([facility]) Vital Signs (Past 12 Hours) Vital Signs Temp Pulse Pulse Resp BP Pulse Ox 05/20/20 07:18 37.0 C 102 H 18 145/79 H 94 05/20/20 05:32 36.8 C 97 H 20 121/81 94 05/20/20 00:00 122 H 05/19/20 23:43 36.9 C 120 H 18 143/81 H 95 05/19/20 21:56 37.4 C 117 H 20 160/90 H 97 Diagnostic Findings Left knee films obtained last night showed a distal femoral fracture with associated joint effusion and soft tissue edema. There is lateral distraction of the distal fragment by approximately 1 cm. Tibia and fibula appear intact. Chest x-ray obtained last night shows no active disease in the chest. No pneumothorax. Pelvic film obtained last night shows no acute bony abnormality. He has a chronic deformity of the left proximal femur that is similar to prior studies. CT scan of the brain obtained last night shows no evidence of hemorrhage, mass- effect, or acute territorial ischemia. CT scan of the cervical spine obtained last night shows no evidence of fracture or subluxation of the cervical spine. Advanced spondylitic changes and osteopenia are present. There is significant disc space narrowing at all levels between C3-C4 and C7-T1. CT scan of the facial bones shows no evidence of facial bone fracture. Lower extremity ultrasound obtained today shows a DVT within the calf at the popliteal and Posterior tibial veins. (1) Fracture of distal end of femur Encounter type: initial encounter Fracture morphology: other fracture Fracture type: closed Laterality: left Qualified Code(s): S72.492A - Other fracture of lower end of left femur, initial encounter for closed fracture
[2020-05-20] MEDS ORDERED: HEPARIN SODIUM/DEXTROSE 25,000 UNITS/500 ML BAG IV SCH (10:00)
--- NOTE | 2020-05-20 10:15 | CT Scan Report ---
CT knee LT wo con HISTORY: 59 years-old Male frtacture acute left femur fracture COMPARISON: Radiographs of the left knee 05/19/2020, left knee CT 02/04/2011 TECHNIQUE: Multiple axial CT images of the left knee were obtained without the use of IV contrast. A dose lowering technique was used consistent with the principals of JORDON. FINDINGS: Right knee total joint arthroplasty is noted on the oracle technical architect localizer images. Prior hardware removal wi th osteotomy changes of the proximal left tibia. Demineralized appearance of the bones. There is an a cute comminuted fracture of the distal femoral metaphysis which demonstrates 1.6 cm posteriorly 1.5 c m lateral displacement. There is associated apex volar angulation of approximately 30 degrees. The fr acture extends into the superior aspect of the trochlear groove. No extension into the medial or late ral femoral condyles. Tricompartmental osteoarthritis, severe within the medial compartment, moderate within the lateral and patellofemoral compartments. No intra-articular loose body identified. There is an acute nondisplaced fracture involving the medial patellar facet, best seen involving the anteri or cortex inferiorly on image 151 series 3. Moderate lipohemarthrosis with moderate subcutaneous edema circumferentially involving the knee. Ca rial calcifications. IMPRESSION: 1. Acute comminuted mildly displaced and angulated fracture of the distal femoral metaphysis with fra cture extension into the superior aspect of the trochlear groove. 2. Acute nondisplaced fracture of the medial patella. 3. Moderate lipohemarthrosis with posttraumatic subcutaneous edema. 4. Demineralized appearance of the bones with tricompartmental osteoarthritis, severe within the medi al compartment. 5. Remote osteotomy changes and hardware removal of the proximal tibia. ACT 112: Positive. There are findings on this exam that require communication between the performing entity and the patient following Patient Test Result Information Act ([place] Act 112) guidelines. The above report was generated using voice recognition software. It may contain grammatical, syntax o r spelling errors. Electronically signed by: Matthew Espana M.D. 05/20/2020 10:14 AM
--- NOTE | 2020-05-20 10:25 | Orthopedic Consultation ---
Date of Consultation May 20, 2020 Assessment & Plan (1) Fracture of distal end of femur: He was educated on this injury and treatment for this. I did discuss surgical intervention with him this morning. He does have a DVT and Dr. Fleming has been consulted. He is a patient of Dr. Rodriguez's and has had multiple orthopedic procedures in the past with him. Case was discussed between Dr. Schaffer and Dr. Rodriguez and Dr. Rodriguez is going to take over his orthopedic care. Present on Admission?: Yes History of Present Illness Reason for Consultation: Left femur fracture Attending Physician: Britt Salazar MD History of Present Illness 59-year-old male admitted yesterday to the hospitalist service with a left distal femur fracture. He does not exactly recall the injury but believes he may have fallen from bed on Tuesday. Apparently his home health nurse and found him in his home with altered mental status and facial injuries yesterday and he was brought to the hospital for further evaluation. His history is obtained from him as well as the chart. He is complaining of some left knee pain. No other orthopedic complaints at this time. He has a history of a high tibial osteotomy on the left lower extremity complicated by infection. He has also had a wound on his great toe which is been managed in the wound clinic in the past. Allergies Allergy/AdvReac Type Severity Reaction Status Date / Time simvastatin Allergy Unknown MUSCLE Verified 05/19/20 17:18 WEAKNESS,TINGLING haloperidol [From Haldol] AdvReac Unknown Unknown Verified 05/19/20 17:18 Home Medications Home Medications Medication Instructions Recorded Confirmed Type Victoza 3-Toni 1.2 mg SUBCUT QAM 11/03/18 05/19/20 History amlodipine [Norvasc] 10 mg PO HS 11/03/18 05/19/20 History docusate sodium [DOK] 100 mg PO BID 11/03/18 05/19/20 History fexofenadine [Carmen Allergy] 180 mg PO DAILY PRN 11/03/18 05/19/20 History fluticasone propionate [Flonase 1 spray INTRANASAL BID PRN 11/03/18 05/19/20 History Allergy Relief] gabapentin 400 mg PO TID 11/03/18 05/19/20 History guaifenesin [Mucinex] 600 mg PO Q12H PRN 11/03/18 05/19/20 History indapamide 2.5 mg PO HS 11/03/18 05/19/20 History ipratropium bromide 2 spray INTRANASAL QID PRN 11/03/18 05/19/20 History ketoconazole 1 applic TOPICAL WK 11/03/18 05/19/20 History lisinopril 40 mg PO HS 11/03/18 05/19/20 History meloxicam 7.5 mg PO BID 11/03/18 05/19/20 History metaxalone 800 mg PO TID 11/03/18 05/19/20 History metformin 850 mg PO BIDM 11/03/18 05/19/20 History metoprolol tartrate 50 mg PO BID 11/03/18 05/19/20 History multivitamin 1 tab PO QDD 11/03/18 05/19/20 History oxycodone 5 mg PO BID PRN 11/03/18 05/19/20 History pioglitazone [Actos] 30 mg PO QAM 11/03/18 05/19/20 History acetaminophen [Tylenol 8 Hour] 650 mg PO DIRECTED PRN 11/29/19 05/19/20 History oxycodone [OxyContin] 20 mg PO BID PRN 12/04/19 05/19/20 History rosuvastatin [Crestor] 20 mg PO DAILY 12/04/19 05/19/20 History baclofen 40 mg PO HS #28 tab 12/08/19 05/19/20 Rx [id number] 1 tab PO QAM #14 tab 12/08/19 05/19/20 Rx [Caltrate 600-D Plus Minerals] cephalexin 500 mg capsule 500 mg PO BID #60 cap 01/23/20 05/19/20 Rx dextroamphetamine-amphetamine ER 20 mg PO DAILY 01/23/20 05/19/20 History 20 mg 24hr capsule,extend release amitriptyline 25 mg PO HS 05/19/20 05/19/20 History aspirin [Aspir-81] 81 mg PO DAILY 05/19/20 05/19/20 History fluoxetine 60 mg PO QAM 05/19/20 05/19/20 History omeprazole 20 mg PO DAILYBB 05/19/20 05/19/20 History Patient History Medical History Benzodiazepine abuse Chronic pain (Chronic) Deep vein thrombosis Delirium Diabetic foot ulcer associated with type 2 diabetes mellitus Diverticulosis (Chronic) DM type 2 (diabetes mellitus, type 2) (Chronic) Dyslipidemia (Chronic) Femur fracture (Chronic) "S/P repair" History of septic arthritis (Chronic) Hypertension (Chronic) Mood disorder Opiate abuse, continuous NARINDER on CPAP (Chronic) Psychosis Raynaud disease (Chronic) Surgical History H/O hand surgery (Chronic) History of carpal tunnel surgery (Chronic) S/P left knee arthroscopy (Chronic) Status post total knee replacement, right (Chronic) Family History Other Family history non-contributory Social History Smoking Status: Former smoker Second Hand Exposure: No; Hx Alcohol Use: Yes Alcohol type: beer and hard liquor Hx Substance Use: No Preferred Language: Kyrgyz Communication Ability: Effective Gambling Dealer Required: No Beliefs That Will Affect Care: None Current Living Situation: Alone Other Information That Helps Us Care for You: No Feels Safe at Home: Yes Safety Concerns: Feels Safe At This Time Review of Systems Musculoskeletal: as per Subjective / HPI Neurologic: no tingling and no numbness Physical Exam Physical Exam: He is alert and in no distress. He has multiple abrasions on his face as well as ecchymosis around both of his eyes. On exam of the left lower extremity is some swelling around his knee and distal thigh. He has an abrasion anteriorly at the knee. Otherwise skin is intact. He is tender palpation at the fracture site the distal femur. I did not do any range of motion of his knee. He is able to move his toes appropriately. He has palpable dorsalis pedis pulse. Brisk refill. Sensations intact to touch. Results & Data ([facility]) Vital Signs (Past 12 Hours) Vital Signs Temp Pulse Pulse Resp BP Pulse Ox 05/20/20 07:18 37.0 C 102 H 18 145/79 H 94 05/20/20 05:32 36.8 C 97 H 20 121/81 94 05/20/20 00:00 122 H 05/19/20 23:43 36.9 C 120 H 18 143/81 H 95 Diagnostic Findings X-rays were reviewed which shows a displaced distal femur fracture of the left femur as well as advanced knee DJD. PG Care Time/CCT Total # of Minutes Spent Total Time Spent with Patient: Total time spent is greater than 50% in coordination of care (as documented) at patient's floor/unit and/or counseling patient: Coding Level of Care Code None Diagnoses Fracture of distal end of femur S72.492A Encounter type: initial encounter Fracture morphology: other fracture Fracture type: closed Laterality: left (1) Fracture of distal end of femur Encounter type: initial encounter Fracture morphology: other fracture Fracture type: closed Laterality: left Qualified Code(s): S72.492A - Other fracture of lower end of left femur, initial encounter for closed fracture
[2020-05-20] MEDS ORDERED: HEPARIN IV BOLUS 6,000 UNITS in SYRINGE 0 ML IV ONE (11:15)
--- NOTE | 2020-05-20 11:20 | Communication Note ---
Date of Service: May 20, 2020 Room 12 in OR had electrical difficulties today. Will plan on placing filter at 8am tomorrow and then can have his ortho procedure following the insertion.
--- NOTE | 2020-05-20 11:39 | Hospitalist Progress Note ---
Date of Service May 20, 2020 Assessment & Plan (1) Encephalopathy: Possible related to metabolic and Toxic encephalopathy Likely polysubstance abuse VS withdrawal from opioid VS ARF On metaxalone, baclofen, fluoxetine, Adderall, oxycodone, OxyContin,, gabapentin, amitriptyline UDS negative (Pt does not remember the last time he took his narcotic and Adderall ) CT head showed no hemorrhage, mass effect, or evidence of acute territorial ischemia Denies any alcohol use No focal neuro deficit Mental status is getting back to normal Fracture of distal end of femur S/P Fall Pt does not recall the event. Home nurse found him on the floor Left Knee Xray showed distal femoral fracture as above with associated joint effusion and soft tissue edema. CT cervical showed no evidence of fracture or subluxation involving the cervical spine. Face CT showed no evidence of facial bone fracture. CT LLE showed acute comminuted mildly displaced and angulated fracture of the distal femoral metaphysis with fracture extension into the superior aspect of the trochlear groove. Acute nondisplaced fracture of the medial patella. Moderate lipohemarthrosis with posttraumatic subcutaneous edema. Ortho on board Non weight bearing on the LLE Plan to take to OR tomorrow at 10AM Pt denies any chest pain, palpitation Ortho recommended to hold the heparin drip 6hrs before surgery Continue pain control Stable Deep vein thrombosis: U/S doppler of LE showed deep venous thrombosis identified in the calf within the posterior tibial and peroneal veins. Will initiated anticoagulant with heparin drip vascular surgery on board Case discussed with Vascular surgery team than plan to place an IVC filter placement in am before the procedure Case discuss with Dr. Rosa about when to restart the anticoagulant after the procedure as per Dr. Rosa since pt plan to have an IVC filter placement, will resume the anticoagulant after 24hrs if ok with ortho and when the bleeding stable Will monitor closely for any bleeding since pt had a fall with orbital ecchymoses If develop any change in his MS while on heparin drip, will repeat the CT head Polysubstance abuse: Has been on multiple substances which can cause mental impairment including metaxalone, baclofen, fluoxetine, Adderall, oxycodone, OxyContin, diazepam, gabapentin, and amitriptyline Seems to be withdrawing from narcotics since UDS was negative Continue oxycodone IR 5 mg PRN and morphine for now Will hold Adderall, Amitriptyline and prozac for now Osteomyelitis of Left great toe Recent MRI outpatient showed Osrteomyelitis Pt follow with ortho Discussed with ortho about the osteomyelitis finding in the the MRI and they aware of that No plan for any procedure for now, plan to continue following the patient outpatient as per Ortho Continue chronic PO abx Rabdo CPK on admission elevated 1169 Received IVF CPK 859 Continue monitor CPK ARF Creatinine on admission 1.49 received IVF Creatinine 1.1 today Lisinopril on hold Avoid nephrotoxic agents NARINDER on CPAP: No acute issue Continue CPAP machine DM type 2 (diabetes mellitus, type 2): Most recent Hba1c 6.5 on 04/19 Continue to hold outpatient DM med Continue Lantus and insulin sliding scale while inpatient Monitor BS Hypertension: Continue Amlodipine Lisinopril on hold due to elevate creatine on admission Continue Monitor BP ADD (attention deficit disorder): Adderall placed on hold DVT px on heparin drip Disposition Continue monitor in tele Full code as per daughter, Ms. Raeann Jakc (based in [place]). Please call daughter. She requests updates from providers through [phone]. Admission and Anticipated Discharge Date Admission Date: May 19, 2020 Subjective Pt was seen and examined Lying in bed with no distress Pt said that he thinks that he fell while sitting on the edge of the bed eating breakfast He said that maybe he was not able to pull himself up He said that the home nurse was at his place on Tuesday he said that he was on the floor probably from Tuesday until Tuesday when they found him Pt said that pain is tolerable He said that pain is worst with movement of the LLE He said that he used crutches to move around His awake and his mental status is back to normal Spoke with daughter provided with update and answers all her questions Denies any chest pain, palpitation, dizziness and SOB Physical Exam Physical Exam: General- No acute distress Head- atraumatic, +multiple abrasions/dried blood on mid face, Eyes- PERRL, EOMI, + Bilateral periorbital ecchymoses ENT- oropharynx clear Neck- supple, no JVD Lungs- No wheezing, No carckles Heart- +tachycardia, regular rhythm; no murmur Abdomen- normal bowel sounds, soft, nontender Extremities- LLE tenderness, +edema Neuro- alert, oriented x 3; PERRL, EOMI; no facial palsy; no dysarthria Skin- warm & dry Results & Data Results & Data ([facility]) Vital Signs (Past 12 Hours) Vital Signs Temp Pulse Pulse Resp BP Pulse Ox 05/20/20 10:53 37.1 C 100 H 18 156/80 H 93 05/20/20 07:18 37.0 C 102 H 18 145/79 H 94 05/20/20 05:32 36.8 C 97 H 20 121/81 94 05/20/20 00:00 122 H 05/19/20 23:43 36.9 C 120 H 18 143/81 H 95
--- NOTE | 2020-05-20 13:29 | Electrocardiogram Report ---
Test Reason : Blood Pressure : / mmHG Vent. Rate : 137 BPM Atrial Rate : 137 BPM P-R Int : 124 ms QRS Dur : 092 ms QT Int : 298 ms P-R-T Axes : 059 040 002 degrees QTc Int : 449 ms Poor data quality, interpretation may be adversely affected Sinus tachycardia Possible Left atrial enlargement Nonspecific ST and T wave abnormality Abnormal ECG When compared with ECG of 29-NOV-2019 12:37, ST now depressed in Lateral leads Confirmed by Miguel Gibbs ([id number]) on 05/20/2020 1:29:01 PM Referred By: REFERRED SELF Confirmed By:Miguel Gibbs
--- NOTE | 2020-05-20 15:03 | Consultation Report ---
DATE OF CONSULTATION: 05/20/2020 I was consulted to see Mr. Pelaez about a left leg injury. Dr. Schaffer contacted me as he was initially consulted last evening. Mr. Pelaez was found down last evening. It is not clearly known what happened. He thinks he may have fell out of bed on Tuesday. He was brought to the hospital where he has been worked up and admitted. He has shown signs of confusion. There is pain in the left leg. There is not a prior history of left femur injury; however, he has had a left knee high tibial osteotomy, which did not heal. This was revised, got infected, eventually healed. He then developed septic arthritis of the left knee, which was cleaned out and his hardware was subsequently removed. He has also been dealing with a left big toe problem. His workup also revealed that he had a DVT. Dr. Fleming has been consulted to place a Mamie filter and he has been placed on a heparin drip. His health history is noted. 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 He is currently afebrile. His vital signs are stable, although he remains mildly tachycardic, which is significantly improved. His urine output is averaged 425 in the past 2 shifts. He is awake and alert. He recognizes me instantly. He does state that the nurses are trying to hurt him that they are giving him alcohol. He asked me to take him off of this unit. He has significant bruising and swelling of his face. He complains of pain only to the left leg area and states that his left leg is broken. He is oriented to person and place and knows it is April, but thinks the year is 2018 and he does not know the day of the week. He can move both upper extremities without difficulty. He has no tenderness to palpation. His axillary, musculocutaneous, median, radial and ulnar motor and sensory functions are grossly intact. He has good movement of the cervical spine. He can move his right leg without difficulty and can lift his leg. The right leg is nontender and he can bend his knee to 90 degrees. The wound on the left big toe is completely healed and it looks rather benign. There is no drainage, erythema or swelling. He has 5/5 ankle and toe plantar flexion and dorsiflexion strength. His dorsalis pedis and posterior tibial pulses are 1+. He does note some tenderness along the upper half of the left tibia. The ankle is not tender, swollen or bruised. He has no pain with log rolling in the hip and no tenderness of the left thigh. There is tenderness around the knee, nothing necessarily around the kneecap. There is a 5 cm bruise over the anterior aspect of the knee with a transverse abrasion or area of early skin necrosis about 3 cm wide and 1 cm long. This is more anterior compared to where our lateral knee incision would typically be. The knee is swollen. There is no break in the skin. Pedal pulses are palpable in the right leg as well. CURRENT MEDICATIONS: Noted on the chart. Tylenol, amlodipine, Ancef preop, Colace, heparin drip, insulin, metoprolol, morphine, oxycodone, lorazepam, doxycycline, Toradol, thiamine. ALLERGIES: HE IS ALLERGIC TO SIMVASTATIN AND HALOPERIDOL ACCORDING TO THE CHART. His labs are reviewed. Interestingly, he is on chronic narcotics, but his urine drug screen is negative. His PT/INR is within normal limits. White count 9, hemoglobin 9, hematocrit 29, platelet count is 193. His PRP is noted, BUN 31, chloride 111. COVID test is negative. CK is initially 1200, now down to 850. Urinalysis showed ketones, but no blood or evidence of infection. X-rays of the left knee along with CT scan are reviewed. He has a comminuted fracture of the distal femur with a short distal segment. There is reasonably good alignment on the lateral x-ray with some lateralward displacement on the AP. The knee is arthritic. There is no intercondylar extension. There is a nondisplaced fracture of the patella, medial side. Longitudinal type avulsion noted on the CT scan, there is evidence of prior tibial hardware removal. There is no evidence of obvious osteomyelitis on the CT scan. The left leg is immobilized in a knee immobilizer. IMPRESSION: 1. Fall. 2. Altered mental status. 3. Left distal femur fracture. 4. Left leg pain. 5. Possible left toe osteomyelitis. PLAN: I spoke with Dr. Salazar. Plan at this time is to have Dr. Fleming put a vena cava filter in tomorrow morning followed by surgery to fix his femur. Heparin will be stopped 8 hours before our surgery at approximately 2:00 a.m. He is made n.p.o. after midnight and I discussed with Rich the treatment options, risks and benefits and he gave Informed consent. Dr. Salazar will follow up on any issues related to rhabdomyolysis. The plan will be for ORIF with a lateral plate and screws. He is educated about the surgery. I reassured him that the nurses are not giving him alcohol. He will be nonweightbearing after surgery. We did talk about the risks of infection, bleeding, pain, scarring, nerve and blood vessel damage, blood clots, embolism, heart attack, stroke, , nonunion, malunion, knee stiffness, wound problems. We will get an x-ray of left tib-fib and also of the left big toe for further evaluation of these areas. MRI of the left big toe done earlier this month showed evidence consistent with osteomyelitis. He is on chronic doxycycline for that. Preoperative antibiotics.
--- NOTE | 2020-05-20 15:22 | XRay Report ---
XR tibia fibula LT 2V CLINICAL HISTORY: Leg pain. COMPARISON: Leg length study May 08, 2018. Left knee radiographs May 19, 2020. CT of the left knee J [email or web address]. FINDINGS: No acute fracture of the left tibia or fibula is identified. Distal left femoral fracture is partially imaged on this exam. This is better shown on CT of the left knee performed earlier today . Remote post surgical findings within the proximal left tibia are noted. Talar dome is intact. Sever e osteoarthritis of the left knee, most pronounced within the medial compartment, is noted. IMPRESSION: 1. No acute fracture of the left tibia or fibula. 2. Acute distal left femoral fracture better depicted on the CT of the left knee performed earlier to day. 3. Remote post surgical findings within the proximal left tibia. 4. Severe medial compartment osteoarthritis of the left knee. ACT 112: Negative or not required by law. Electronically signed by: Willi Patrick M.D. 05/20/2020 3:21 PM
--- NOTE | 2020-05-20 15:23 | XRay Report ---
XR toe(s) LT min 2V CLINICAL HISTORY: left big toe, pain COMPARISON STUDY: Left foot 12/05/2019. FINDINGS: There is a small fracture along the lateral head of the proximal phalanx of the first toe w ith mild depression. There is lateral dislocation of the distal phalanx. There are erosive changes at the interphalangeal joint of the first toe. There is soft tissue swelling within the first toe. Subo ptimal lateral view. IMPRESSION: 1. Small slightly depressed fracture within the lateral head of the proximal phalanx of the first toe . 2. There is lateral dislocation of the distal phalanx of the first toe. 3. Multiple erosions seen at the interphalangeal joint of the first toe. This may represent a septic arthritis. A gouty arthritis could also have a similar appearance in the appropriate clinical setting .. 4. These findings were called/faxed to the referring physician following dictation. ACT 112: Positive. There are findings on this exam that require communication between the performing entity and the patient following Patient Test Result Information Act ([place] Act 112) guidelines. Electronically signed by: Omero Noe M.D. 05/20/2020 3:21 PM
[2020-05-20] MEDS: MULTIVITAMIN TAB PO SCH (16:15)
--- NOTE | 2020-05-20 17:35 | Anesthesiology Consultation ---
Date of Service May 20, 2020 Assessment & Plan (1) Encounter for pre-operative examination: Chart Review Chart Review: Acceptable Risk for Surgery and Patient NOT seen in Pre Admission Testing Patient's mental status continues to improve per report. Will need to assess DOS to ensure patient is able to sign his own consent. COVID 19 PRESCREEN DONE 05/20/2020 AND WAS NEGATIVE. Consults Requested none History Surgery Operation Date: 05/20/20 09:20 Proposed Procedures p Left Femur Open Reduction Internal Fixation - Cody Schaffer MD Operation Date: 05/21/20 07:30 Proposed Procedures p Inferior Vena Cava Filter Placement - Vahid Fleming MD Operation Date: 05/21/20 10:30 Proposed Procedures p Left Distal Femur Fracture Open Reduction Internal Fixation - Fercho Rodriguez MD Height/Weight Height: 5 ft Weight: 98.5 kg Allergies Allergy/AdvReac Type Severity Reaction Status Date / Time simvastatin Allergy Unknown MUSCLE Verified 05/19/20 17:18 WEAKNESS,TINGLING haloperidol [From Haldol] AdvReac Unknown Unknown Verified 05/19/20 17:18 Medications Home Medications Medication Instructions Recorded Confirmed Last Taken Victoza 3-Toni 1.2 mg SUBCUT QAM 11/03/18 05/19/20 11/29/19 amlodipine [Norvasc] 10 mg PO HS 11/03/18 05/19/20 11/28/19 docusate sodium [DOK] 100 mg PO BID 11/03/18 05/19/20 11/28/19 fexofenadine [Carmen Allergy] 180 mg PO DAILY PRN 11/03/18 05/19/20 11/28/19 fluticasone propionate [Flonase 1 spray INTRANASAL BID PRN 11/03/18 05/19/20 11/28/19 Allergy Relief] gabapentin 400 mg PO TID 11/03/18 05/19/20 11/28/19 guaifenesin [Mucinex] 600 mg PO Q12H PRN 11/03/18 05/19/20 11/28/19 indapamide 2.5 mg PO HS 11/03/18 05/19/20 11/28/19 ipratropium bromide 2 spray INTRANASAL QID PRN 11/03/18 05/19/20 11/28/19 ketoconazole 1 applic TOPICAL WK 11/03/18 05/19/20 11/29/19 lisinopril 40 mg PO HS 11/03/18 05/19/20 11/28/19 meloxicam 7.5 mg PO BID 11/03/18 05/19/20 11/28/19 metaxalone 800 mg PO TID 11/03/18 05/19/20 11/28/19 metformin 850 mg PO BIDM 11/03/18 05/19/20 11/28/19 metoprolol tartrate 50 mg PO BID 11/03/18 05/19/20 11/28/19 multivitamin 1 tab PO QDD 11/03/18 05/19/20 11/28/19 oxycodone 5 mg PO BID PRN 11/03/18 05/19/20 11/28/19 pioglitazone [Actos] 30 mg PO QAM 11/03/18 05/19/20 11/29/19 acetaminophen [Tylenol 8 Hour] 650 mg PO DIRECTED PRN 11/29/19 05/19/20 11/28/19 21:00 2 tablets oxycodone [OxyContin] 20 mg PO BID PRN 12/04/19 05/19/20 Unknown rosuvastatin [Crestor] 20 mg PO DAILY 12/04/19 05/19/20 Unknown baclofen 40 mg PO HS #28 tab 12/08/19 05/19/20 Unknown [id number] 1 tab PO QAM #14 tab 12/08/19 05/19/20 Unknown [Caltrate 600-D Plus Minerals] cephalexin 500 mg capsule 500 mg PO BID #60 cap 01/23/20 05/19/20 Unknown dextroamphetamine-amphetamine ER 20 mg PO DAILY 01/23/20 05/19/20 Unknown 20 mg 24hr capsule,extend release amitriptyline 25 mg PO HS 05/19/20 05/19/20 Unknown aspirin [Aspir-81] 81 mg PO DAILY 05/19/20 05/19/20 Unknown fluoxetine 60 mg PO QAM 05/19/20 05/19/20 Unknown omeprazole 20 mg PO DAILYBB 05/19/20 05/19/20 Unknown Active Medications Generic Name Dose Route Start Last Admin Trade Name Freq PRN Reason Stop Dose Admin Acetaminophen 650 mg 05/19/20 22:30 05/20/20 07:36 Tylenol PO 06/18/20 22:29 650 mg Q4H PRN Administration Pain or Fever Amlodipine Besylate 10 mg 05/19/20 22:30 05/20/20 00:11 Norvasc PO 06/18/20 22:29 10 mg HS FRANCESCA Administration Cephalexin HCl 500 mg 05/20/20 09:00 05/20/20 16:15 Keflex PO 06/19/20 08:59 500 mg TID FRANCESCA Administration Docusate Sodium 100 mg 05/19/20 22:30 05/20/20 07:37 Colace PO 06/18/20 22:29 100 mg BID FRANCESCA Administration Lactated Ringer's 1,000 mls @ 150 mls/hr 05/20/20 01:00 05/20/20 13:16 Lr IV 05/21/20 00:59 150 mls/hr .Q6H40M FRANCESCA Administration Heparin Sodium/Dextrose 25,000 units in 500 mls @ 25 mls/hr 05/20/20 10:00 05/20/20 14:59 Heparin Sodium/Dextrose IV 06/19/20 09:59 1,250 units/hr .Q20H FRANCESCA 25 mls/hr Titration Protocol 1,250 UNITS/HR Insulin Aspart 0 units 05/20/20 06:00 05/20/20 11:52 Novolog Flexpen SC 06/19/20 05:59 Not Given Q6 FRANCESCA Metoprolol Tartrate 50 mg 05/19/20 22:30 05/20/20 07:37 Lopressor PO 06/18/20 22:29 50 mg BID FRANCESCA Administration Morphine Sulfate 4 mg 05/20/20 00:35 05/20/20 10:38 Morphine Sulfate IV 06/03/20 00:34 4 mg Q6H PRN Administration Pain Multivitamins 1 tab 05/20/20 16:30 05/20/20 16:15 Multivitamin Tab PO 06/19/20 16:29 1 tab QDD FRANCESCA Administration Oxycodone HCl 5 mg 05/19/20 22:44 05/20/20 07:36 Roxicodone Immediate Rel PO 06/02/20 22:43 5 mg QID PRN Administration Pain Pantoprazole Sodium 40 mg 05/20/20 06:30 05/20/20 05:37 Protonix PO 06/19/20 06:29 40 mg DAILYBB FRANCESCA Administration Past Medical History Medical History (Updated 05/20/20 @ 17:40 by Donald Bae MD) RUDY (acute kidney injury) (Inactive) Benzodiazepine abuse Chronic pain (Chronic) Deep vein thrombosis Delirium Diabetic foot ulcer associated with type 2 diabetes mellitus Diverticulosis (Chronic) DM type 2 (diabetes mellitus, type 2) (Chronic) Dyslipidemia (Chronic) Encephalopathy Femur fracture (Chronic) "S/P repair" History of septic arthritis (Chronic) Hypertension (Chronic) Mood disorder Opiate abuse, continuous NARINDER on CPAP (Chronic) Psychosis Raynaud disease (Chronic) Rhabdomyolysis CPK on admission elevated 1169 Received IVF CPK 859 Past Family History Family History Other Family history non-contributory Past Surgical History Surgical History H/O hand surgery (Chronic) History of carpal tunnel surgery (Chronic) S/P left knee arthroscopy (Chronic) Status post total knee replacement, right (Chronic) Social History Smoking Status: Former smoker Hx Alcohol Use: Yes Alcohol type: beer and hard liquor alcohol intake frequency: 0-2 drinks per day Hx Substance Use: No Physical Exam Vital Signs Last Vital Signs Temp 37.0 C 05/20/20 16:02 Pulse 119 H 05/20/20 16:02 Resp 19 05/20/20 16:02 BP 151/83 H 05/20/20 16:02 Pulse Ox 94 05/20/20 16:02 Testing Laboratory Results 05/20/20 06:48 05/20/20 06:48 PT 11.2 Seconds (9.0-12.0) 05/19/20 17:13 INR 1.1 (0.9-1.1) 05/19/20 17:13 APTT 25.9 Seconds (21.0-31.0) 05/19/20 17:13 Urine Color Yellow 05/19/20 20:51 Urine Appearance Clear (Clear) 05/19/20 20:51 Urine pH 5.0 (4.5-7.5) 05/19/20 20:51 Ur Specific [place] 1.020 (1.000-1.030) 05/19/20 20:51 Urine Protein Negative (Negative) 05/19/20 20:51 Urine Glucose (UA) Negative (Negative) 05/19/20 20:51 Urine Ketones 3+ (Negative) H 05/19/20 20:51 Urine Nitrite Negative (Negative) 05/19/20 20:51 Ur Leukocyte Esterase Negative (Negative) 05/19/20 20:51 Blood Type B Positive 05/19/20 20:34 Antibody Screen NEGATIVE 05/19/20 20:34 05/20/20 05/20/20 16:35 11:49 POC Glucose 174 H 169 H Electrocardiogram Date: 05/19/20 Findings: + ST @ (137) Poor data quality, interpretation may be adversely affected Sinus tachycardia Possible Left atrial enlargement Nonspecific ST and T wave abnormality Abnormal ECG When compared with ECG of 29-NOV-2019 12:37, ST now depressed in Lateral leads Confirmed by Miguel Gibbs ([id number]) on 05/20/2020 1:29:01 PM Chest X-Ray Date: 05/19/20 SINGLE VIEW CHEST CLINICAL HISTORY: Change in mental status. FINDINGS: An AP, portable, upright chest radiograph is compared to study dated 11/29/2019. The cardiomediastinal silhouette is unremarkable. There is mild chronic elevation of right hemidiaphragm. Atelectasis is noted at the lung bases. No airspace consolidation or large pleural effusion is identified. No pneumothorax is seen. The bony thorax is grossly intact. IMPRESSION: No active disease in the chest.
[2020-05-20 17:58] LABS: Partial Thromboplastin Ratio 3.3
[2020-05-20 18:01] LABS: Partial Thromboplastin Time 92.5 Seconds (21.0-31.0)
[2020-05-20] MEDS ORDERED: GABAPENTIN 400 MG CAP PO SCH (21:00)
[2020-05-21] MEDS: INSULIN ASPART 100 UNITS/ML 3 ML PEN SC SCH ×5 (00:32→21:21)
[2020-05-21 01:09] LABS: Hematocrit (blood only) 27.1 % (42-52); Hemoglobin 8.8 g/dL (14.0-18.0); Mean Corpuscular Hemoglobin 25.5 pg (25-34); Mean Corpuscular Hgb Conc 32.5 g/dL (32-36); Mean Corpuscular Volume 78.6 fL (80-100); Platelet Count 160 K/uL (130-400); RDW Coefficient of Variation 16.2 % (11.5-14.5); RDW Standard Deviation 46.9 fL (36.4-46.3); Red Blood Count 3.45 M/uL (4.7-6.1); White Blood Count 7.74 K/uL (4.8-10.8)
[2020-05-21 01:28] LABS: Creatinine Clr Calc Pharmacy 85.8 ml/min; Est GFR (African American) 106.5; Est GFR (Non-African American) 91.9; Potassium 3.4 mmol/L (3.5-5.1)
[2020-05-21 01:34] LABS: Partial Thromboplastin Ratio 2.1
[2020-05-21 01:38] LABS: Partial Thromboplastin Time 57.2 Seconds (21.0-31.0)
[2020-05-21] MEDS: LACTATED RINGER'S 1,000 ML IV SCH ×2 (05:02→16:56)
[2020-05-21] MEDS ORDERED: POTASSIUM CHLORIDE 20 MEQ TABCR PO STA (05:49)
[2020-05-21] MEDS ORDERED: CEFAZOLIN 2000MG 2,000 MG/15 ML SYR IV SCH ×2 (06:00→08:00)
[2020-05-21] MEDS: GABAPENTIN 400 MG CAP PO SCH ×3 (06:03→20:53)
[2020-05-21] MEDS: METOPROLOL TARTRATE 50 MG TAB PO SCH ×2 (06:03→20:54)
[2020-05-21] MEDS: PANTOprazole 40 MG TAB PO SCH (06:03)
[2020-05-21] MEDS ORDERED: BUPIVACAINE/EPINEPHRINE 0.25% 1:200,000 30 ML VIAL ONE (06:36)
[2020-05-21] MEDS ORDERED: fentaNYL citrate 100 MCG/2 ML VIAL IV PRN ×2 (07:13→08:31)
[2020-05-21] MEDS ORDERED: HYDROmorphone INJ 1 MG/ML SYRINGE IV PRN (07:13)
[2020-05-21] MEDS ORDERED: ONDANSETRON INJ 2 MG/ML 2 ML VIAL IV PRN ×3 (07:13→15:25)
[2020-05-21] MEDS ORDERED: LABETALOL HCL IV 5 MG/ML 20ML IV PRN (07:13)
[2020-05-21] MEDS ORDERED: ePHEDrine sulfate 50 MG/ML AMP IV PRN (07:13)
[2020-05-21] MEDS ORDERED: PHENYLEPHRINE 100MCG/ML 5ML SYR IV PRN (07:13)
[2020-05-21] MEDS ORDERED: ATROPINE SULFATE 0.1 MG/ML 10ML SYR IV PRN (07:13)
[2020-05-21] MEDS ORDERED: MAGNESIUM SULFATE / D5W 1 GM/100 ML BAG IV STA (07:24)
[2020-05-21] MEDS ORDERED: POTASSIUM CHLORIDE / WTR 10 MEQ/100 ML PLCT IV ONE ×2 (07:26→17:30)
--- NOTE | 2020-05-21 07:33 | History & Physical Bridge Note ---
Date of Service May 21, 2020 History & Physical Bridge Note Patient for insertion of filter due to contraindication of anticoagulation and acute DVT of the lower extremity. I have discussed the risks options and benefits of the procedure with the patient. The patient understands the risks options and benefits and agrees to the procedure. I have examined the patient, reviewed the History & Physical and in the interval since the performance of the History & Physical I have noted the following changes of clinical significance: no changes noted
[2020-05-21] MEDS ORDERED: SODIUM CHLORIDE 0.9% 250 ML IV PRN (07:40)
[2020-05-21] MEDS ORDERED: fentaNYL citrate 100 MCG/2 ML VIAL ONE ×3 (07:53→10:45)
[2020-05-21] MEDS ORDERED: MIDAZOLAM HCL 1 MG/ML 2ML VIAL ONE (07:53)
[2020-05-21] MEDS ORDERED: VISIPAQUE IV ONE (08:14)
[2020-05-21] MEDS ORDERED: LIDOCAINE HCL 1% 20 ML VIAL INJ ONE (08:15)
--- NOTE | 2020-05-21 08:17 | Post Operative Brief Note ---
Immediate Post Op Note v1 Date of Surgery May 21, 2020 Pre & Post Diagnosis Operation Date: 05/20/20 09:20 <No data on this case meets the specified criteria> Operation Date: 05/21/20 07:30 Pre-Op Diagnosis: Deep Vein Thrombois, Contraindication of Anticoagulation Post-Op Diagnosis: Deep Vein Thrombois, Contraindication of Anticoagulation Operation Date: 05/21/20 10:30 <No data on this case meets the specified criteria> I identified the patient and participated in the time-out.: Yes Procedure Operation Date: 05/20/20 09:20 <No data on this case meets the specified criteria> Operation Date: 05/21/20 07:30 Actual Procedures p Insertion Of Vena Cava Filter, Right Internal Jugular Approach, Ultrasound for Localization of Right Internal Jugular, Fluoroscopy for Positioning, Moderate Sedation from [id number](Right) - Vahid Fleming MD Operation Date: 05/21/20 10:30 <No data on this case meets the specified criteria> Surgeon Vahid Fleming MD Search Engine Optimization Manager MD Elif Estimated Blood Loss 0 Findings Consistent with Post-Op Diagnosis Anesthesia Type RN Sedation Complications none Disposition Accompanied Patient To Recovery: No Disposition: PCU
--- NOTE | 2020-05-21 08:18 | Post Anesthesia Assessment ---
Date of Service May 21, 2020 Post Sedation Assessment Vital Signs Temp Pulse Pulse Pulse Resp BP Pulse Ox 05/21/20 08:12 83 18 117/76 100 05/21/20 08:10 82 18 115/71 100 05/21/20 08:05 83 16 120/76 100 05/21/20 08:00 82 18 119/71 100 05/21/20 07:55 84 18 132/73 99 05/21/20 06:59 37.5 C 87 20 L 20 113/76 94 05/21/20 04:57 37.0 C 110 H 22 154/88 H 94 05/21/20 04:00 108 H 05/20/20 23:32 37.1 C 90 18 161/75 H 94 05/20/20 23:00 86 05/20/20 19:33 36.9 C 114 H 18 137/93 95 05/20/20 16:02 37.0 C 119 H 19 151/83 H 94 05/20/20 16:00 103 H 05/20/20 10:53 37.1 C 100 H 18 156/80 H 93 Recovery Score Activity: Moves 4 extremities Respiration: Deep Breath/Cough Circulation: +/-20% PreAnes Value Consciousness: Fully Awake Oxygen Saturation: > 92% On Room Air Post Anesthesia Score: 10 Discharge Sedation Level of Care: Fast Track Phase II Post Sedation Plan On clinical assessment, the patient appears to have tolerated the sedation without complications. Patient is recovering as anticipated. Patient will continue to be monitored by nursing and may be discharged when sedation discharge criteria are met per below protocol. Upon Completions of procedure up to 15 minutes continue every 5 minute vital signs and the P.A.R. score; then discharge to a Phase I or Fast Track to Phase II per the following guidelines: * Discharge Patient to appropriate Phase II area if PAR is 8 or greater or return to pre- procedure baseline. The post - procedure orders will be as directed. * If PAR score is less than 8 or not return to pre-procedure baseline then patient will follow Phase I monitoring till PAR is reached for Phase II. The Phase I may be done in procedure room or may call to secure a Phase I area. * If naloxone or flumazenil are used for reversal, hold in Phase I for continued monitoring from when last reversal dose was given for a minimum of 60 minutes or longer pending the nurse and/or physician discretion of patient condition before discharge to Phase II. Please call the Sedation Physician to re-evaluate and complete post-note for discharge to Phase II area. Do NOT discharge from procedure sedation or Phase 1 until post- sedation evaluation note is complete by procedure /sedation MD Sedation Discharge Instructions to be given to the patient at discharge to home.
--- NOTE | 2020-05-21 08:18 | Pre Anesthesia Assessment ---
Date of Service May 21, 2020 Pre Sedation Assessment Vital Signs Temp Pulse Pulse Pulse Resp BP Pulse Ox 05/21/20 08:12 83 18 117/76 100 05/21/20 08:10 82 18 115/71 100 05/21/20 08:05 83 16 120/76 100 05/21/20 08:00 82 18 119/71 100 05/21/20 07:55 84 18 132/73 99 05/21/20 06:59 37.5 C 87 20 L 20 113/76 94 05/21/20 04:57 37.0 C 110 H 22 154/88 H 94 05/21/20 04:00 108 H 05/20/20 23:32 37.1 C 90 18 161/75 H 94 05/20/20 23:00 86 05/20/20 19:33 36.9 C 114 H 18 137/93 95 05/20/20 16:02 37.0 C 119 H 19 151/83 H 94 05/20/20 16:00 103 H 05/20/20 10:53 37.1 C 100 H 18 156/80 H 93 Cardiovascular RRR, no murmur, no edema Respiratory normal respiratory effort, lungs clear to auscultation Pre-Sedation Airway Assessment Smoking Status: Former smoker Hx Sleep Apnea: Yes Short, Thick Neck: Yes Thyromental Distance: > or= 3.5 Finger Breadths Oral Cavity: + WNL Mallampati Class: II ASA: ASA3 NPO Status Date of Last Intake of Fluids: 05/21/20 Time of Last Intake of Fluids: 00:00 Last Oral Intake of Fluids Comment: atleast since midnight Date of Last Intake of Solid Food: 05/21/20 Time of Last Intake of Solid Foods: 07:37 Last Intake of Solids Comment: atleast since midnight Procedure Planning Contraindications for Sedation: none Current Medications Reviewed: Yes Notes The planned sedation has been discussed with the patient. Informed Consent was obtained. I have identified the patient, determined the appropriateness of sedation and have assessed the patient immediately prior to the procedure. All medicine(s) and interventions are by my order.
--- NOTE | 2020-05-21 08:28 | Operative Report ---
Post Operative Report Pre & Post Diagnosis Operation Date: 05/20/20 09:20 <No data on this case meets the specified criteria> Operation Date: 05/21/20 07:30 Pre-Op Diagnosis: Deep Vein Thrombosis, Contraindication of Anticoagulation Post-Op Diagnosis: Deep Vein Thrombosis, Contraindication of Anticoagulation Operation Date: 05/21/20 10:30 <No data on this case meets the specified criteria> I identified the patient and participated in the time-out.: Yes Procedure Operation Date: 05/20/20 09:20 <No data on this case meets the specified criteria> Operation Date: 05/21/20 07:30 Actual Procedures p Insertion Of Vena Cava Filter, Right Internal Jugular Approach, Ultrasound for Localization of Right Internal Jugular, Fluoroscopy for Positioning, Moderate Sedation from [id number](Right) - Vahid Fleming MD Operation Date: 05/21/20 10:30 <No data on this case meets the specified criteria> Surgeon Nick Fleming MD Burnisher And Bumper MD Elif Estimated Blood Loss 0 Findings Consistent with Post-Op Diagnosis Fluids Crystalloid Specimens None Drains None Anesthesia Type MAC Complications none Disposition Disposition: PCU Indications Rich Becerril is a 59-year-old male who underwent a major traumatic fall. This resulted in a left lower extremity femur fracture and he was later identified to have a DVT. He is scheduled to undergo orthopedic procedure for which anticoagulation will need to be held. Given the new DVT that requires anticoagulation and the operative contraindication to anticoagulation we were asked to insert a filter. Description of Procedure The patient was brought to the angio suite and placed in the supine position. The right side of the neck was prepped and draped in the usual fashion. The patient was identified and a timeout performed. The right internal jugular vein was located with ultrasound. It was patent, compressed easily, and had no filling defects. The vein was then punctured under ultrasound visualization. A guidewire was then passed centrally into the inferior vena cava under fluoroscopic guidance. The puncture site was then dilated and the filter sheath inserted. It was passed to the infra renal vena cava. A venacavagram was done which showed no cava clot and an acceptable size. The renal veins were identified. The filter was then passed through the sheath and deployed in the infra renal vena cava in an upright position. Satisfied with the positioning of the filter, the sheath was removed. Pressure was applied to the puncture site. Adequate hemostasis was obtained and a sterile dressing was applied. The patient left the angio suite in good condition and tolerated the procedure well. Dr. Fleming was present and scrubbed for the entire procedure. I attest to the content of the Intraoperative Record and any orders documented therein. Any exceptions are noted below.
[2020-05-21] MEDS ORDERED: HYDROmorphone INJ 2 MG/ML SYR/VIAL IV PRN (08:31)
[2020-05-21] MEDS ORDERED: PROPOFOL IV EMULSION 10 MG/ML 20 ML VIAL IV ONE (08:37)
[2020-05-21] MEDS ORDERED: LIDOCAINE HCL 2% 2 ML VIAL/AMP(20MG/ML) INFIL ONE (08:37)
[2020-05-21] MEDS ORDERED: ONDANSETRON INJ 2 MG/ML 2 ML VIAL ONE (08:37)
[2020-05-21] MEDS ORDERED: ROCURONIUM BROMIDE 10 MG/ML 5 ML VIAL IV ONE (08:37)
[2020-05-21] MEDS ORDERED: THIAMINE HCL 100 MG TAB PO SCH (09:00)
--- NOTE | 2020-05-21 09:16 | History & Physical Bridge Note ---
Date of Service May 21, 2020 History & Physical Bridge Note I have examined the patient, reviewed the History & Physical and in the interval since the performance of the History & Physical I have noted the following changes of clinical significance: no changes noted
[2020-05-21] MEDS ORDERED: CEFAZOLIN 1,000 MG/7.5 ML IV PUSH IV ONE (09:35)
[2020-05-21] MEDS: DOCUSATE SODIUM 100 MG CAP PO SCH ×2 (09:51→20:51)
[2020-05-21] MEDS: FLUOXETINE HCL 20 MG CAP PO SCH (09:52)
[2020-05-21] MEDS: cephALEXin 500 MG CAP PO SCH ×2 (09:52→13:30)
[2020-05-21] MEDS ORDERED: CEFAZOLIN 1000MG 1,000 MG/7.5 ML SYR IV SCH (10:00)
[2020-05-21] MEDS ORDERED: HYDROmorphone INJ 2 MG/ML SYR/VIAL ONE (12:13)
[2020-05-21] MEDS ORDERED: BACITRACIN OINT 15 GM TUBE ONE (13:20)
[2020-05-21] MEDS ORDERED: CEFAZOLIN 250 MG/ML 1 GM VIAL ONE (13:28)
[2020-05-21] MEDS ORDERED: CEFAZOLIN 1000MG 1,000 MG/7.5 ML SYR IV STA (13:29)
[2020-05-21] MEDS ORDERED: GLYCOPYRROLATE 0.2 MG/ML VIAL ONE (13:33)
[2020-05-21] MEDS ORDERED: NEOSTIGMINE METHYLSULFATE 5 MG/5 ML SYR ONE (13:33)
--- NOTE | 2020-05-21 14:11 | Operative Report ---
Post Operative Report Pre & Post Diagnosis Operation Date: 05/21/20 10:30 Pre-Op Diagnosis: Left Distal Femur Fracture, Left Great Toe Osteomyelitis Post-Op Diagnosis: Left Distal Femur Fracture, Left Great Toe Osteomyelitis I identified the patient and participated in the time-out.: Yes Procedure Operation Date: 05/21/20 10:30 Actual Procedures p Left Distal Femur Fracture Open Reduction Internal Fixation(Left) - MD tay Baez Left Great Toe Amputation(Left) - Fercho Rodriguez MD Surgeon Fercho Rodriguez MD Tow Motor Mechanic Tamica Hoskins and Xavier Mccollum. Physicians assistant real estate manager was required as no qualified resident or fellow was available. Estimated Blood Loss 30 Findings Consistent with Post-Op Diagnosis Specimens Culture and bone for culture left big toe and also toe was sent for specimen. Drains None Anesthesia Type General Complications none Disposition Accompanied Patient To Recovery: No Disposition: Recovery Room Indications Patient is 59. He has chronic wound of left big toe which is been followed by an outpatient by 1 of our local industrial engineering. The patient's wound is healed however examination reveals mild enlargement and gross instability. He had a recent MRI for follow-up which showed findings consistent with osteomyelitis and additionally radiographs demonstrate destructive changes of the first interphalangeal joint. I have offered to address this subsequent to our fixing of his femur fracture today and he agreed to proceed. In terms of his left femur he fell recently for reasons that are unclear. His mental status was likely altered. He was admitted to the hospital. He has been tuned up by medicine. He had a DVT and is on anticoagulation. Dr. Fleming has just inserted a vena cava filter. Heparin was stopped 8 hours preoperatively. I recommended ORIF of his comminuted distal femur fracture and he agrees to proceed. 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 His knee is arthritic. He has no problems with his right total knee status post replacement. Description of Procedure Informed consent obtained. Patient identified. He identified the operative site as the left big toe and left distal femur. A preoperative surgical timeout was performed and a preop dose of IV antibiotics was given. He was taken to the operating room positioned supine on the operating room table. After the anesthetic was administered a bump was placed under the left hip. Bone foam was placed under the left calf. No tourniquet was utilized. The leg was pre- scrubbed and prepped and draped in usual sterile fashion. The foot was prepped in but draped out of the surgical field. The distal femur was unstable. There was a 1-1/2 x 4 cm transverse abrasion. He also had a prior midline incision which extended from above the patella to the proximal third of the tibia due to his prior surgery. I outlined an incision that coursed down the lateral side of his leg and went more directly lateral. He had an additional lateral incision and our incision incorporated it. At the very distal extent it was about 6 cm from the other midline incision but otherwise was more than 7 cm away from it. Fluoroscopic guidance was utilized throughout the case. DVT prophylaxis with SCDs intraoperatively. Postoperatively he will have the IVC filter and will be placed back on anticoagulation. Examination of the right knee demonstrated that he had full extension and flexion of 120 degrees. Posterior drawer was intact. He had probably 1+ laxity of the LCL at 90 and more than 1+ perhaps 2+ MCL laxity at 90. In full extension he had trace opening to MCL stressing and intact LCL. At 30 degrees knee flexion he had 1+ LCL laxity and 2 to 3+ MCL laxity. The lateral incision was made and was about 25 cm in length. The incision was carried sharply through the skin electrocautery utilized to control bleeding. Flaps are elevated enough to define the anatomy of the IT band which was then opened in its midline down to the level of the tibial plateau. The IT band was elevated distally to expose the distal femur anterior and posterior. Adhesions were there because of prior surgery and arthritis. The synovium was opened likewise in line with the incision to expose the bone. Soft tissue over the fracture site was preserved and not dissected. A channel was made underneath this tissue to communicate proximally. Proximally I went ahead and identified the posterior intermuscular septum and elevated the vastus lateralis up off of that electrocauterizing the perforating vessels as they were encountered. Hall retractor was inserted. An 8 hole plate was selected and seemed to fit well in terms of length. Distal traction was applied to the leg with the knee in about 30 degrees flexion. A alligator clamp was applied to the distal femur proximal to the fracture site and was utilized to correct lateral translocation of the distal fragment. I then very minimally dissected on the posterior fracture spike enough to get a pointed bone reduction clamp directly on the posterior fragment. It was then clamped across the femur and the anterior posterior direction directly on bone. I had exposed just enough of the spike posteriorly to allow to keep in to the proximal fragment for an anatomic reduction. Some slight valgus mallet malalignment was readjusted. The alignment was therefore then anatomic in both the AP and lateral planes and length was restored. I then took the plate and placed as far anterior and distal as possible lined it up with the shaft of the femur and pinned it in place. Once positioned the plate was acceptable I inserted 2 locking screws distally and 1 locking screw proximally. I then reassessed the alignment and was found to be acceptable. I then placed a total of 6 distal locking screws including the large central bolt. These were done in the standard fashion advancing a drill bit through the guide until it reached the far cortex. Some of the screws were short because of the distal position of the plate. Slightly shorter screws were inserted. Proximally I inserted 2 additional locking screws. I left the relatively longer working length. The fracture was anatomically reduced. Copious irrigation was performed. The joint capsule was reapproximated with interrupted 0 Vicryl. The iliotibial band was reapproximated with #1 Vicryl. The LCL origin and popliteus insertion were identified protected and preserved throughout the procedure. President Ceo & Founder fluoroscopic images were obtained. The skin was closed in layers with 0 and 2-0 Vicryl followed by gilberto. The leg was cleaned with wet and dry sponges and a soft sterile dressing was applied provisionally. We then went ahead and changed gloves. A new drape was placed over the foot up to the level of the midcalf. This excluded the prior surgical site from the foot. The foot was unwrapped. No tourniquet was utilized. No exsanguination was performed. Another timeout was performed. A midline incision was made followed by tennis racquet incision around the distal phalanx and tuft of the great toe. The great toe had a healed medial wound without drainage but the toe itself was grossly unstable. The extensor tendon was transected at the level of the proposed bone resection which was approximately 15 mm distal to the metatarsophalangeal joint. This is a placed on the MRI where the bone looked normal. No purulence was encountered. Subperiosteal exposure was performed the flexor tendon was pulled into the wound and transected. The scarring from the medial wound was excised and any extraneous bone fragments were removed. The toe after it was removed was split open and a culture was obtained of the interphalangeal joint. The proximal phalanx was sent for bone culture. The whole toe was sent for specimen. Copious irrigation was performed followed by meticulous hemostasis. The distal flap was shaped as necessary. The bone was smoothed. A fluoroscopic image was obtained demonstrating the degree of resection. The flexor hallucis brevis attachment to the proximal phalanx was preserved. The plantar flap was folded dorsally and sutured in place with 3-0 nylon. The leg was cleaned with wet and dry sponges fluffs were placed between the toes Xeroform 4 x 4's Kerlix and Darrin wrap were applied. Full-length Darrin wrap postop shoe and knee immobilizer. Patient was awakened from anesthesia without difficulty and taken to the cart room in stable condition. There were no complications. Specimens were as mentioned above counts were correct blood loss is estimated to be 30 cc. At the conclusion the operation there is no unavailable to speak to. Postoperative plan will include intravenous antibiotics to cover him for postoperative infection prophylaxis and also to address his foot osteomyelitis. He is also on chronic suppressive antibiotics due to his prior left knee infection. He will be nonweightbearing on the left leg for period of 6 to 12 weeks. We will need to control his diabetes well. He will need jail or acute care rehab. He will not be capable of caring for himself. Heparin can be resumed 12 hours postop. I attest to the content of the Intraoperative Record and any orders documented therein. Any exceptions are noted below.
--- NOTE | 2020-05-21 14:22 | Fluoroscopy Report ---
FL femur LT 2V CLINICAL HISTORY: LT DISTAL FEMUR FX COMPARISON STUDY: None. FLUOROSCOPY TIME: 1 minute and 35 seconds. FINDINGS: 3 fluoroscopic spot images of the left distal femur demonstrate a lateral cortical plate tr ansfixed with screws bridging the femoral fracture. The hardware is intact. Alignment is near-anatomi c. IMPRESSION: Fluoroscopy provided for internal fixation of a distal left femur fracture. ACT 112: Negative or not required by law. Electronically signed by: Omero Noe M.D. 05/21/2020 2:21 PM
--- NOTE | 2020-05-21 14:23 | Fluoroscopy Report ---
FL toe LT 2V HISTORY: 59 years-old Male LT GREAT TOE AMPUTATION COMPARISON: [Radiographs 05/20/2020 TECHNIQUE: One spot fluoroscopic view of the left great toe FINDINGS: There is metallic device noted overlying the first MTP joint. Partial amputation of the first digit a t the level of the mid diaphyseal aspect of the first proximal phalanx. IMPRESSION: Fluoroscopic assistance as above. Please see operative report for further details. ACT 112: Negative or not required by law. The above report was generated using voice recognition software. It may contain grammatical, syntax o r spelling errors. Electronically signed by: Matthew Espana M.D. 05/21/2020 2:22 PM
--- NOTE | 2020-05-21 14:55 | Operative Report ---
Post Operative Report Pre & Post Diagnosis Operation Date: 05/20/20 09:20 <No data on this case meets the specified criteria> Operation Date: 05/21/20 07:30 Pre-Op Diagnosis: Deep Vein Thrombosis, Contraindication of Anticoagulation Post-Op Diagnosis: Deep Vein Thrombosis, Contraindication of Anticoagulation Operation Date: 05/21/20 10:30 Pre-Op Diagnosis: Left Distal Femur Fracture, Left Great Toe Osteomyelitis Post-Op Diagnosis: Left Distal Femur Fracture, Left Great Toe Osteomyelitis I identified the patient and participated in the time-out.: Yes Procedure Operation Date: 05/20/20 09:20 <No data on this case meets the specified criteria> Operation Date: 05/21/20 07:30 Actual Procedures p Insertion Of Vena Cava Filter, Right Internal Jugular Approach, Ultrasound for Localization of Right Internal Jugular, Fluoroscopy for Positioning, Moderate Sedation from [id number](Right) - Vahid Fleming MD Operation Date: 05/21/20 10:30 Actual Procedures p Left Distal Femur Fracture Open Reduction Internal Fixation(Left) - Fercho Rodriguez MD s Left Great Toe Amputation(Left) - Fercho Rodriguez MD Surgeon GERMÁN Rodriguez MD Storage Engineer Tamica Hoskins and Xavier Mccollum. Physician dental chairside assistant was required as no qualified resident or fellow was available. Estimated Blood Loss 30 Findings Consistent with Post-Op Diagnosis Specimens See operative report Drains None Complications none Disposition Accompanied Patient To Recovery: Yes Disposition: Recovery Room Indications This 59-year-old white male presented through the ED after falling at home. He sustained a left distal femur fracture. He also has a history of osteomyelitis in the left great toe. Patient elected to proceed with surgical intervention after being educated about potential risks and outcomes. Preoperative imaging was obtained. Description of Procedure Patient was taken to the operating room where he was given general anesthesia. He was prepped and draped in the usual sterile fashion. Please see Dr. Rodriguez's operative report for specifics of the procedure. I was present for the second half of the case, providing assistance in tissue retraction, hemostasis, hardware placement, and final wound closure. Patient was taken to the recovery room in satisfactory condition. I attest to the content of the Intraoperative Record and any orders documented therein. Any exceptions are noted below.
--- NOTE | 2020-05-21 14:57 | Anesthesiology Progress Note ---
Date of Service May 21, 2020 Anesthesia Post Procedure Vital Signs Vital Signs: Temp Pulse Pulse Pulse Pulse Resp BP 05/21/20 14:50 85 11 L 05/21/20 14:40 88 14 05/21/20 14:30 100 H 15 05/21/20 14:20 36.5 C 109 H 17 05/21/20 09:30 37.4 C 86 20 116/77 05/21/20 09:10 37.2 C 84 20 114/73 05/21/20 08:42 37.3 C 81 18 05/21/20 08:17 84 18 05/21/20 08:12 83 18 05/21/20 08:10 82 18 05/21/20 08:05 83 16 05/21/20 08:00 82 18 05/21/20 07:55 84 18 05/21/20 06:59 37.5 C 87 20 L 20 05/21/20 04:57 37.0 C 110 H 22 05/21/20 04:00 108 H 05/20/20 23:32 37.1 C 90 18 05/20/20 23:00 86 05/20/20 19:33 36.9 C 114 H 18 05/20/20 16:02 37.0 C 119 H 19 05/20/20 16:00 103 H BP Pulse Ox 05/21/20 14:50 125/70 99 05/21/20 14:40 130/87 100 05/21/20 14:30 135/79 100 05/21/20 14:20 144/83 H 100 05/21/20 09:30 94 05/21/20 09:10 94 05/21/20 08:42 119/73 96 05/21/20 08:17 127/72 95 05/21/20 08:12 117/76 100 05/21/20 08:10 115/71 100 05/21/20 08:05 120/76 100 05/21/20 08:00 119/71 100 05/21/20 07:55 132/73 99 05/21/20 06:59 113/76 94 05/21/20 04:57 154/88 H 94 05/21/20 04:00 05/20/20 23:32 161/75 H 94 05/20/20 23:00 05/20/20 19:33 137/93 95 05/20/20 16:02 151/83 H 94 05/20/20 16:00 Pain Intensity Left Leg: Pain Intensity: 7 Transfer of Care Handoff Completed per policy Notes Mental Status: alert / awake / arousable and participated in evaluation Patient Amnestic to Procedure: Yes Nausea / Vomiting: adequately controlled Pain: adequately controlled Airway Patency, RR, SpO2: stable & adequate BP & HR: stable & adequate Hydration State: stable & adequate Anesthetic Complications: no major complications apparent and Pt Satisfied with anesthetic care
[2020-05-21] MEDS ORDERED: FEXOFENADINE HCL 180 MG TAB PO PRN (15:25)
[2020-05-21] MEDS ORDERED: HYDROmorphone INJ 0.5 MG/0.5 ML SYR IV PRN (15:25)
[2020-05-21] MEDS ORDERED: DiphenhydrAMINE HCL 50 MG/ML VIAL IV PRN (15:25)
[2020-05-21] MEDS ORDERED: guaiFENesin 600 MG TABCR PO PRN (15:25)
[2020-05-21] MEDS ORDERED: MAGNESIUM HYDROXIDE SUSP 30 ML UDC PO PRN (15:25)
[2020-05-21] MEDS ORDERED: bisacodyL 10 MG SUPP PR PRN (15:25)
[2020-05-21] MEDS ORDERED: NON-FORMULARY MEDICATION (Acetaminophen [Tylenol 8 Hour] 650 MG) PO PRN (15:25)
[2020-05-21] MEDS ORDERED: FLUTICASONE PROPIONATE NA SPR 16 GM BTL NAE PRN (15:25)
[2020-05-21] MEDS ORDERED: NALOXONE HCL 0.4 MG/1 ML VIAL/CARP IV PRN (15:25)
[2020-05-21] MEDS ORDERED: IPRATROPIUM BROMIDE NASAL SPRAY 0.06% 15ML PRN (15:25)
[2020-05-21] MEDS ORDERED: METOCLOPRAMIDE HCL INJ 5 MG/ML 2 ML VIAL IV PRN (15:25)
[2020-05-21] MEDS ORDERED: SODIUM CHLORIDE 0.9% 1000ML 1,000 ML IV SCH (15:25)
[2020-05-21] MEDS: MoRPHine SULFATE 4 MG/ML 1 ML CARP\\VIAL IV PRN (15:54)
[2020-05-21] MEDS: CEFTOLOZANE/TAZOBACTAM 3,000 MG in DEXTROSE 5% 100 ML IV SCH ×2 (15:55→23:32)
[2020-05-21] MEDS: MULTIVITAMIN TAB PO SCH (17:01)
--- NOTE | 2020-05-21 17:03 | XRay Report ---
XR knee RT 3V CLINICAL HISTORY: Right knee pain COMPARISON: Right knee radiographs January 16, 2020. FINDINGS: Alignment of the total right knee arthroplasty is anatomic. There is no periprosthetic fra cture or lucency. Hardware is intact. There is a possible small joint effusion. There are vascular ca lcification is noted. IMPRESSION: 1. Status post total right knee arthroplasty. No periprosthetic fracture or lucency. 2. Possible small right knee joint effusion. ACT 112: Negative or not required by law. Electronically signed by: Willi Patrick M.D. 05/21/2020 5:02 PM
[2020-05-21] MEDS: CEFAZOLIN 1000MG 1,000 MG/7.5 ML SYR IV SCH ×2 (17:17→23:32)
[2020-05-21] MEDS: ASCORBIC ACID 500 MG TAB PO SCH (17:18)
[2020-05-21] MEDS: FERROUS GLUCONATE 324 MG TAB PO SCH (17:18)
[2020-05-21] MEDS ORDERED: MAGNESIUM SULFATE / D5W 1 GM/100 ML BAG IV ONE (17:30)
--- NOTE | 2020-05-21 17:34 | Hospitalist Progress Note ---
Date of Service May 21, 2020 Assessment & Plan (1) Encephalopathy: -as per ED notes 05/19/2020 "This is a 59-year-old male brought in from home via EMS due to altered mental status. Patient has home health that comes and visits him on Tuesday, Tuesday, and Tuesday,. Patient last seen in his usual state of health on Tuesday. The home health nurse did come for her visit this morning, however he did not answer the door or let her in. After some time and for an unknown reason EMS was contacted many hours later. EMS found the patient in his house to be altered with evidence of facial trauma. Patient seemed confused, but was awake and could follow commands. They did check blood sugar prehospital which was 131. Patient cannot provide much in the way of details or history. Patient does have a complicated past medical history including diabetes, psychosis, and substance abuse." -CT head showed no hemorrhage, mass effect, or evidence of acute territorial ischemia -polypharmacy is considered as a cause versus alternative reason; had Adderall, Amitriptyline and prozac held ADD (attention deficit disorder): -resume adderall (2) Contusion of face: -from fall injury -05/21/2020 patient clarifies that he had fallen from bed (3) Fracture of distal end of femur: Deep Vein Thrombosis Left Great toe osteomyelitis -admission imaging findings were significant for acute comminuted mildly displaced and angulated fracture of the distal femoral metaphysis with fracture extension into the superior aspect of the trochlear groove; Acute nondisplaced fracture of the medial patella; Moderate lipohemarthrosis with posttraumatic subcutaneous edema on CT of the Lower extremity AND deep venous thrombosis identified in the calf within the posterior tibial and peroneal veins on ultrasound of the lower left extremity -patient was initially placed on heparin drip IV as per discussion with Dr. Rosa -on 05/21/2020, patient had Insertion Of Vena Cava Filter via Right Internal Jugular Approach by Dr. Fleming and then subsequently on the same day operated on by orthopedics Dr. Rodriguez for Left Distal Femur Fracture Open Reduction Internal Fixation and Left Great Toe Amputation(Left) -at this time systemic anticoagulation to be held, will need further assessments while inpatient -patient has prn pain medications -need PT/OT evaluations -anticipate that case management will need patient to be arranged to go to a facility physical therapy center versus long-term facility for physical rehabilation -currently on Cefazolin IV antibiotics and Zerbaxa (ceftolozane/tazobactam) IV, continue for now Rhabdomyolysis -admission CPK admission 1169 -improved with IV fluids -continue to monitor Acute Kidney Injury -Creatinine on admission 1.49 -improved with IV fluids NARINDER on CPAP: -continue CPAP machine DM type 2 (diabetes mellitus, type 2): -Most recent Hba1c 6.5 on 04/19 -Continue to hold outpatient DM med -Continue Lantus and insulin sliding scale while inpatient Hypertension: -Continue Amlodipine and metoprolol, resume lisinopril Full code as per daughter, Ms. Raeann Jack (based in [place]). Please call daughter. She requests updates from providers through [phone]. Admission and Anticipated Discharge Date Admission Date: May 19, 2020 Subjective patient demonstrated good understanding of hospital course. updated his daughter by telephone. patient not in acute distress. eating the dinner. no chest pain. no shortness of breath. no neck pain. no abdominal pain. no vomiting. no dizz iness. Review of Systems Review of Systems: All systems reviewed & are unremarkable except as noted in Subjective Physical Exam Constitutional: comfortable Eyes: PERRL, conjunctivae normal, anicteric sclerae EOM intact bilaterally ENMT: bruising raccon eyes Neck: dressing right neck Respiratory: normal respiratory effort, lungs clear to auscultation Cardiovascular: Rate/Rhythm: regular rate Gastrointestinal (Abdomen): normal bowel sounds, soft, nontender, no hepatosplenomegaly Musculoskeletal: left leg in dressing and ice Neurologic: PERRL, EOMI, accommodation nl, no face palsy, no dysarthria Psychiatric: A+Ox3, euthymic affect Results & Data Results & Data ([facility]) Vital Signs (Past 12 Hours) Vital Signs Temp Pulse Pulse Pulse Pulse Resp BP 05/21/20 15:10 36.5 C 96 H 19 05/21/20 15:00 90 17 05/21/20 14:50 85 11 L 05/21/20 14:40 88 14 05/21/20 14:30 100 H 15 05/21/20 14:20 36.5 C 109 H 17 05/21/20 09:30 37.4 C 86 20 116/77 05/21/20 09:10 37.2 C 84 20 114/73 05/21/20 08:42 37.3 C 81 18 05/21/20 08:17 84 18 05/21/20 08:12 83 18 05/21/20 08:10 82 18 05/21/20 08:05 83 16 05/21/20 08:00 82 18 05/21/20 07:55 84 18 05/21/20 06:59 37.5 C 87 20 L 20 BP Pulse Ox 05/21/20 15:10 125/70 92 05/21/20 15:00 122/70 99 05/21/20 14:50 125/70 99 05/21/20 14:40 130/87 100 05/21/20 14:30 135/79 100 05/21/20 14:20 144/83 H 100 05/21/20 09:30 94 05/21/20 09:10 94 05/21/20 08:42 119/73 96 05/21/20 08:17 127/72 95 05/21/20 08:12 117/76 100 05/21/20 08:10 115/71 100 05/21/20 08:05 120/76 100 05/21/20 08:00 119/71 100 05/21/20 07:55 132/73 99 05/21/20 06:59 113/76 94 (1) Fracture of distal end of femur Encounter type: initial encounter Fracture morphology: other fracture Fracture type: closed Laterality: left Qualified Code(s): S72.492A - Other fracture of lower end of left femur, initial encounter for closed fracture (2) Contusion of face Encounter type: initial encounter Qualified Code(s): S00.83XA - Contusion of other part of head, initial encounter
[2020-05-21] MEDS: METAXALONE 800 MG TABLET PO SCH (20:50)
[2020-05-21] MEDS: AMLODIPINE BESYLATE 5 MG TAB PO SCH (20:50)
[2020-05-21] MEDS: lisinopriL 40 MG TAB PO SCH (20:50)
[2020-05-21] MEDS: SENNA 8.6 MG TAB PO SCH (20:51)
[2020-05-21] MEDS: INDAPAMIDE 1.25 MG TAB PO SCH (20:52)
[2020-05-21] MEDS: AMITRIPTYLINE HCL 25 MG TAB PO SCH (20:54)
[2020-05-21] MEDS: BACLOFEN 10 MG TAB PO SCH (20:55)
[2020-05-21] MEDS ORDERED: DOCUSATE SODIUM 100 MG CAP PO SCH (21:00)
[2020-05-21] MEDS ORDERED: Nursing to Pharmacy Communication SCH ×2 (22:30→23:15)
[2020-05-22] MEDS: ACETAMINOPHEN 325 MG TAB PO PRN ×4 (01:12→21:45)
[2020-05-22] MEDS: OXYCODONE HCL IR 5 MG TAB (IMMEDIATE RELEASE) PO PRN ×2 (01:13→07:26)
[2020-05-22] MEDS: PANTOprazole 40 MG TAB PO SCH (06:21)
[2020-05-22] MEDS: CEFTOLOZANE/TAZOBACTAM 3,000 MG in DEXTROSE 5% 100 ML IV SCH ×3 (07:27→23:52)
[2020-05-22] MEDS: CEFAZOLIN 1000MG 1,000 MG/7.5 ML SYR IV SCH ×3 (07:27→23:53)
[2020-05-22] MEDS: FLUOXETINE HCL 20 MG CAP PO SCH (07:29)
[2020-05-22] MEDS: METAXALONE 800 MG TABLET PO SCH ×3 (07:29→20:12)
[2020-05-22] MEDS: GABAPENTIN 400 MG CAP PO SCH ×3 (07:29→16:43)
[2020-05-22] MEDS: ASPIRIN 81 MG ECTAB PO SCH (07:30)
[2020-05-22] MEDS: CALCIUM 600MG + VIT D 400 IU TAB PO SCH (07:30)
[2020-05-22] MEDS: DOCUSATE SODIUM 100 MG CAP PO SCH ×2 (07:30→20:07)
[2020-05-22] MEDS: METOPROLOL TARTRATE 50 MG TAB PO SCH ×2 (07:30→20:10)
[2020-05-22] MEDS: ASCORBIC ACID 500 MG TAB PO SCH ×2 (07:30→17:07)
[2020-05-22] MEDS: ROSUVASTATIN CALCIUM 20 MG TAB PO SCH (07:30)
[2020-05-22] MEDS: FERROUS GLUCONATE 324 MG TAB PO SCH ×2 (07:40→17:06)
[2020-05-22] MEDS: INSULIN ASPART 100 UNITS/ML 3 ML PEN SC SCH ×4 (07:51→20:41)
[2020-05-22 08:59] LABS: Hematocrit (blood only) 28.3 % (42-52); Hemoglobin 9.3 g/dL (14.0-18.0); Mean Corpuscular Hgb Conc 32.9 g/dL (32-36); Mean Corpuscular Volume 79.1 fL (80-100); Mean Platelet Volume 10.5 fL (7.4-10.4); Platelet Count 180 K/uL (130-400); RDW Coefficient of Variation 16.5 % (11.5-14.5); Red Blood Count 3.58 M/uL (4.7-6.1); White Blood Count 9.73 K/uL (4.8-10.8)
[2020-05-22] MEDS ORDERED: AMPHETAMINE ASP/SULF/DEXTRAMPH ER 20 MG CAP PO SCH (09:00)
[2020-05-22] MEDS ORDERED: METAXALONE 800 MG TABLET PO SCH ×2 (09:00→11:30)
[2020-05-22] MEDS ORDERED: MULTIVITAMIN TAB PO SCH (09:00)
[2020-05-22 09:13] LABS: INR 1.1 (0.9-1.1); Partial Thromboplastin Time 28.7 Seconds (21.0-31.0); Prothrombin Time 11.4 Seconds (9.0-12.0)
[2020-05-22] MEDS: OXYCODONE HCL 20 MG TABCR (OXYCONTIN) PO PRN ×2 (09:27→21:46)
[2020-05-22 09:37] LABS: Albumin Globulin Ratio 0.7 (0.9-2); Albumin Level 2.6 gm/dl (3.4-5.0); BUN Creatinine Ratio 12.4 (10-20); Bilirubin,Total 0.5 mg/dl (0.2-1); Calcium 7.6 mg/dl (8.5-10.1); Creatinine Clr Calc Pharmacy 69.9 ml/min; Est GFR (African American) 80.3; Est GFR (Non-African American) 69.3; Globulin 3.7 gm/dl (2.5-4.0); Magnesium 1.7 mg/dl (1.8-2.4); Total Protein 6.3 gm/dl (6.4-8.2)
[2020-05-22] MEDS: KETOCONAZOLE 2% SHAMPOO 120 ML BTL EXT SCH (10:21)
[2020-05-22] MEDS: MAGNESIUM SULFATE / D5W 1 GM/100 ML BAG IV SCH ×2 (10:22→12:42)
--- NOTE | 2020-05-22 11:10 | Orthopedic Progress Note ---
Date of Service May 22, 2020 Assessment & Plan (1) Femur fracture: S/P ORIF Left distal femur fracture by Dr Rodriguez 05-21-20 POD 1 -Continue IV antibiotics to cover him for postoperative infection prophylaxis and also to address his foot osteomyelitis. He is also on chronic suppressive a ntibiotics due to his prior left knee infection. -Nonweightbearing on the left leg for period of 6 to 12 weeks with knee immobilizer and walker. -PT/OT -DVT prophylaxis to include TEDS, SCDs, Heparin while in-house. Hx of DVT, s/p Mamie Filter placed 05-21-20. -Will discuss with Dr Rodriguez pain management. -Dr Rodriguez to see this PM and for dressing change. -Discharge planning for correction or acute care rehab. Present on Admission?: Yes (2) Osteomyelitis of toe of left foot: S/P Left great toe amputation by Dr Rodriguez 05-21-20 POD 1 -Continue IV antibiotics to cover him for postoperative infection prophylaxis and also to address his foot osteomyelitis. He is also on chronic suppressive antibiotics due to his prior left knee infection. -Nonweightbearing on the left leg for period of 6 to 12 weeks with knee immobilizer and walker. -PT/OT -DVT prophylaxis to include TEDS, SCDs, Heparin while in-house. Hx of DVT, s/p [place] Filter placed 05-21-20. -Will discuss with Dr Rodriguez pain management. -Dr Rodriguez to see this PM and for dressing change. -Discharge planning for correction or acute care rehab. Present on Admission?: Yes (3) Status post total knee replacement, right: History of instability. Patient in past has been using a brace occasionally. Current pain is with ambulation with sense of giving way. More than likely exacerbation secondary to compensating for NWBING L LE and contusion from fall. Will discuss with Dr Rodriguez. Consider brace. Low suspicion for infection. Present on Admission?: Yes Admission and Anticipated Discharge Date Admission Date: May 19, 2020 Subjective Pt was seen and examined. He was in process of transferring from bed to chair with nursing. He says he had a rough night due to pain in general. He was asking about possibly increasing pain meds vs adding in toradol which typically helps more for his pain. He said his right knee has been bothering him some and feels unstable. He has a history of RTKR [place] [address] Rodriguez. He says prior to fall he was using a knee brace occasionally on the right knee. Right knee xray performed on 05-21-20. He denies chest pain, palpitations, SOB, lightheadedness or dizziness. He is tolerating PO diet and fluids. Physical Exam Physical Exam: Evaluation of L LE: Left leg post-op dressings intact from toes to mid thigh. Left knee immobilizer intact. Patient able to wiggle exposed toes and ankle. Sensation intact to exposed toes. 1+ capillary refill noted. Neg homans. 5/5 TA and gastroc strength. Evaluation of R LE: Right knee with healed scar. No redness or warmth. Abrasion anterior knee over patella. Mild bruising. Trace effusion. Quad atrophy noted. Functional R knee motion without pain. Laxity noted to right knee with varus/valgus stress at 30 and 90 degrees. Able to perform seated SLR. Quad intact. No pain during physical exam. Painless rotation of right hip. NV intact R LE. Patient required mod A x 2 with verbal commands for transfer bed to chair with wheeled walker. Results & Data ([facility]) Vital Signs (Past 12 Hours) Vital Signs Temp Pulse Pulse Pulse Resp BP BP 05/22/20 10:19 05/22/20 07:29 37.7 C H 107 H 18 123/76 05/22/20 04:00 37.6 C H 99 H 20 121/75 05/22/20 02:34 107 H 05/21/20 23:28 36.9 C 98 H 20 131/77 Pulse Ox 05/22/20 10:19 93 05/22/20 07:29 95 05/22/20 04:00 90 05/22/20 02:34 05/21/20 23:28 91 Laboratory Results 05/22/20 05/22/20 05/22/20 Range/Units 08:42 08:42 08:42 WBC (4.8-10.8) K/uL RBC (4.7-6.1) M/uL Hgb (14.0-18.0) g/dL Hct (42-52) % MCV (80-100) fL MCH (25-34) pg MCHC (32-36) g/dL RDW Std Deviation (36.4-46.3) fL RDW Coeff of Kiki (11.5-14.5) % Plt Count (130-400) K/uL MPV (7.4-10.4) fL PT 11.4 (9.0-12.0) Seconds INR 1.1 (0.9-1.1) APTT 28.7 (21.0-31.0) Seconds PTT Ratio 1.0 Sodium 134 L (136-145) mmol/L Potassium 4.0 D (3.5-5.1) mmol/L Chloride 104 (98-107) mmol/L Carbon Dioxide 23 (21-32) mmol/L Anion Gap 7.0 (3-11) BUN 14 (7-18) mg/dl Creatinine 1.15 (0.6-1.4) mg/dl Est Cr Clr Drug Dosing 69.9 ml/min Est GFR ( Amer) 80.3 Est GFR (Non-Af Amer) 69.3 BUN/Creatinine Ratio 12.4 (10-20) Glucose 278 H (70-99) mg/dl POC Glucose (70-99) mg/dl Calcium 7.6 L (8.5-10.1) mg/dl Magnesium 1.7 L (1.8-2.4) mg/dl Total Bilirubin 0.5 (0.2-1) mg/dl AST 22 (15-37) U/L ALT 19 (12-78) U/L Alkaline Phosphatase 94 (45-117) U/L Total Creatine Kinase 557 H (39-308) U/L Total Protein 6.3 L (6.4-8.2) gm/dl Albumin 2.6 L (3.4-5.0) gm/dl Globulin 3.7 (2.5-4.0) gm/dl Albumin/Globulin Ratio 0.7 L (0.9-2) 25-OH Vitamin D Total 36.0 (30-100) ng/ml Crossmatch 05/22/20 05/22/20 05/21/20 Range/Units 08:42 07:17 20:41 WBC 9.73 (4.8-10.8) K/uL RBC 3.58 L (4.7-6.1) M/uL Hgb 9.3 L (14.0-18.0) g/dL Hct 28.3 L (42-52) % MCV 79.1 L (80-100) fL MCH 26.0 (25-34) pg MCHC 32.9 (32-36) g/dL RDW Std Deviation 48.0 H (36.4-46.3) fL RDW Coeff of Kiki 16.5 H (11.5-14.5) % Plt Count 180 (130-400) K/uL MPV 10.5 H (7.4-10.4) fL PT (9.0-12.0) Seconds INR (0.9-1.1) APTT (21.0-31.0) Seconds PTT Ratio Sodium (136-145) mmol/L Potassium (3.5-5.1) mmol/L Chloride (98-107) mmol/L Carbon Dioxide (21-32) mmol/L Anion Gap (3-11) BUN (7-18) mg/dl Creatinine (0.6-1.4) mg/dl Est Cr Clr Drug Dosing ml/min Est GFR ( Amer) Est GFR (Non-Af Amer) BUN/Creatinine Ratio (10-20) Glucose (70-99) mg/dl POC Glucose 164 H 131 H (70-99) mg/dl Calcium (8.5-10.1) mg/dl Magnesium (1.8-2.4) mg/dl Total Bilirubin (0.2-1) mg/dl AST (15-37) U/L ALT (12-78) U/L Alkaline Phosphatase (45-117) U/L Total Creatine Kinase (39-308) U/L Total Protein (6.4-8.2) gm/dl Albumin (3.4-5.0) gm/dl Globulin (2.5-4.0) gm/dl Albumin/Globulin Ratio (0.9-2) 25-OH Vitamin D Total (30-100) ng/ml Crossmatch 05/21/20 05/19/20 Range/Units 16:29 20:34 WBC (4.8-10.8) K/uL RBC (4.7-6.1) M/uL Hgb (14.0-18.0) g/dL Hct (42-52) % MCV (80-100) fL MCH (25-34) pg MCHC (32-36) g/dL RDW Std Deviation (36.4-46.3) fL RDW Coeff of Kiki (11.5-14.5) % Plt Count (130-400) K/uL MPV (7.4-10.4) fL PT (9.0-12.0) Seconds INR (0.9-1.1) APTT (21.0-31.0) Seconds PTT Ratio Sodium (136-145) mmol/L Potassium (3.5-5.1) mmol/L Chloride (98-107) mmol/L Carbon Dioxide (21-32) mmol/L Anion Gap (3-11) BUN (7-18) mg/dl Creatinine (0.6-1.4) mg/dl Est Cr Clr Drug Dosing ml/min Est GFR ( Amer) Est GFR (Non-Af Amer) BUN/Creatinine Ratio (10-20) Glucose (70-99) mg/dl POC Glucose 144 H (70-99) mg/dl Calcium (8.5-10.1) mg/dl Magnesium (1.8-2.4) mg/dl Total Bilirubin (0.2-1) mg/dl AST (15-37) U/L ALT (12-78) U/L Alkaline Phosphatase (45-117) U/L Total Creatine Kinase (39-308) U/L Total Protein (6.4-8.2) gm/dl Albumin (3.4-5.0) gm/dl Globulin (2.5-4.0) gm/dl Albumin/Globulin Ratio (0.9-2) 25-OH Vitamin D Total (30-100) ng/ml Crossmatch See Detail Diagnostic Findings XR knee RT 3V CLINICAL HISTORY: Right knee pain COMPARISON: Right knee radiographs January 16, 2020. FINDINGS: Alignment of the total right knee arthroplasty is anatomic. There is no periprosthetic fracture or lucency. Hardware is intact. There is a possible small joint effusion. There are vascular calcification is noted. IMPRESSION: 1. Status post total right knee arthroplasty. No periprosthetic fracture or lucency. 2. Possible small right knee joint effusion.
[2020-05-22] MEDS: MAGNESIUM OXIDE 400 MG TAB PO SCH (11:52)
--- NOTE | 2020-05-22 13:59 | Hospitalist Progress Note ---
Date of Service May 22, 2020 Assessment & Plan (1) Encephalopathy: -as per ED notes 05/19/2020 "This is a 59-year-old male brought in from home via EMS due to altered mental status. Patient has home health that comes and visits him on Tuesday, Tuesday, and Tuesday,. Patient last seen in his usual state of health on Tuesday. The home health nurse did come for her visit this morning, however he did not answer the door or let her in. After some time and for an unknown reason EMS was contacted many hours later. EMS found the patient in his house to be altered with evidence of facial trauma. Patient seemed confused, but was awake and could follow commands. They did check blood sugar prehospital which was 131. Patient cannot provide much in the way of details or history. Patient does have a complicated past medical history including diabetes, psychosis, and substance abuse." -CT head showed no hemorrhage, mass effect, or evidence of acute territorial ischemia -polypharmacy is considered as a cause versus alternative reason; had Adderall, Amitriptyline and prozac were initially held ADD (attention deficit disorder): -resumed adderall Seasonal Affective disorder -patient reports that home dose Amitriptyline and prozac is primarily for pain -currently on home dose Amitriptyline 25 mg qhs -will slowly titrate up prozac -he declines inpatient behavioral health consult as he has outside therapist (2) Contusion of face: -from fall injury -05/21/2020 patient clarifies that he had fallen from bed (3) Fracture of distal end of femur: Deep Vein Thrombosis Left Great toe osteomyelitis -admission imaging findings were significant for acute comminuted mildly displaced and angulated fracture of the distal femoral metaphysis with fracture extension into the superior aspect of the trochlear groove; Acute nondisplaced fracture of the medial patella; Moderate lipohemarthrosis with posttraumatic subcutaneous edema on CT of the Lower extremity AND deep venous thrombosis identified in the calf within the posterior tibial and peroneal veins on ultrasound of the lower left extremity -patient was initially placed on heparin drip IV as per discussion with Dr. Rosa -on 05/21/2020, patient had Insertion Of Vena Cava Filter via Right Internal Jugular Approach by Dr. Fleming and then subsequently on the same day operated on by orthopedics Dr. Rodriguez for Left Distal Femur Fracture Open Reduction Internal Fixation and Left Great Toe Amputation(Left) -at this time systemic anticoagulation to be held, will need further assessments while inpatient -patient has prn pain medications -PT/OT evaluations -anticipate that case management will need patient to be arranged to go to a facility physical therapy center versus senior living facility for physical rehabilation -currently on Cefazolin IV antibiotics and Zerbaxa (ceftolozane/tazobactam) IV, continue for now Rhabdomyolysis -admission CPK admission 1169 -improved with IV fluids -CK stabilizing around 500, give additional IV fluids Acute Kidney Injury -Creatinine on admission 1.49 -improved with IV fluids on this admission NARINDER on CPAP: -CPAP qhs DM type 2 (diabetes mellitus, type 2): -Most recent Hba1c 6.5 on 04/19 -Continue to hold outpatient DM med -Continue Lantus and insulin sliding scale while inpatient Hypertension: -Continue Amlodipine and metoprolol, lisinopril Full code as per daughter, Ms. Raeann Jack (based in [place]). [phone]. Admission and Anticipated Discharge Date Admission Date: May 19, 2020 Subjective -patient reports that home dose Amitriptyline and prozac is primarily for pain -currently on home dose Amitriptyline 25 mg qhs -will slowly titrate up prozac -he declines inpatient behavioral health consult as he has outside therapist he reports he was able to do some therapy activities today. breathing on room air. no chest pain. no vomiting. no dizziness. no headache. he agrees to wait out systemic anticoagulation at this time when we were discussing potential bleed risks. Review of Systems Review of Systems: All systems reviewed & are unremarkable except as noted in Subjective Physical Exam Constitutional: comfortable Eyes: PERRL, conjunctivae normal, anicteric sclerae EOM intact bilaterally ENMT: bruising around the skin of eye sockets Neck: trachea midline, no thyromegaly normal visual inspection Respiratory: normal respiratory effort, lungs clear to auscultation Cardiovascular: Rate/Rhythm: regular rate Gastrointestinal (Abdomen): normal bowel sounds, soft, nontender, no hepatosp lenomegaly Musculoskeletal: left leg in dressing Neurologic: PERRL, EOMI, accommodation nl, no face palsy, no dysarthria Psychiatric: A+Ox3, euthymic affect Results & Data Results & Data ([facility]) Vital Signs (Past 12 Hours) Vital Signs Temp Pulse Pulse Pulse Resp BP BP 05/22/20 11:58 36.6 C 92 H 18 111/69 05/22/20 10:19 05/22/20 07:29 37.7 C H 107 H 18 123/76 05/22/20 04:00 37.6 C H 99 H 20 121/75 05/22/20 02:34 107 H Pulse Ox 05/22/20 11:58 93 05/22/20 10:19 93 05/22/20 07:29 95 05/22/20 04:00 90 05/22/20 02:34 (1) Contusion of face Encounter type: initial encounter Qualified Code(s): S00.83XA - Contusion of other part of head, initial encounter (2) Fracture of distal end of femur Encounter type: initial encounter Fracture morphology: other fracture Fracture type: closed Laterality: left Qualified Code(s): S72.492A - Other fracture of lower end of left femur, initial encounter for closed fracture
[2020-05-22] MEDS ORDERED: SODIUM CHLORIDE 0.9% 1000ML 500 ML IV ONE (14:03)
[2020-05-22] MEDS ORDERED: FLUOXETINE HCL 20 MG CAP PO SCH (14:45)
[2020-05-22] MEDS: MULTIVITAMIN TAB PO SCH (16:43)
--- NOTE | 2020-05-22 18:08 | Progress Notes ---
DATE: 05/22/2020 Resting comfortably in bed. He remembers falling and then being under the bed. An issue with not having his phone. I discussed with him that his urine tox screen was negative. He had been taking his pain medicine and may have taken it at the morning that he was brought in. The pain is well controlled. Toe culture has pinpoint growth. He remains on IV antibiotics. ID consult noted. Labs are noted and reviewed. He has 5/5 ankle plantar flexion and dorsiflexion, intact sensation. Foot is warm with good capillary refill less than 2 seconds and a 1+ posterior tibial pulse. Findings discussed. Recommend continuation of intravenous antibiotics. Nonweightbearing on the left leg. He will need DVT prophylaxis or anticoagulation per Medicine. We will change his dressing tomorrow. May need [facility]ci facility as he may not be able to meet his care needs at home and could be at high risk for further injury like another fall. Vitamin D is within normal limits. Spoke w dr edgar about restarting anticoagulation. ok to do so now [facility]
[2020-05-22] MEDS ORDERED: WARFARIN SOD 5 MG TAB PO ONE (18:57)
[2020-05-22] MEDS: HEPARIN SODIUM/DEXTROSE 25,000 UNITS/500 ML BAG IV SCH (19:45)
[2020-05-22] MEDS: BACLOFEN 10 MG TAB PO SCH (20:09)
[2020-05-22] MEDS: AMITRIPTYLINE HCL 25 MG TAB PO SCH (20:09)
[2020-05-22] MEDS: INDAPAMIDE 1.25 MG TAB PO SCH (20:10)
[2020-05-22] MEDS: SENNA 8.6 MG TAB PO SCH (20:11)
[2020-05-22] MEDS: AMLODIPINE BESYLATE 5 MG TAB PO SCH (20:11)
[2020-05-22] MEDS: lisinopriL 40 MG TAB PO SCH (20:12)
[2020-05-22] MEDS: Heparin IV Standard *NO* Bolus IV SCH (20:42)
[2020-05-23 01:58] LABS: Basophils # (auto) 0.02 K/uL (0-0.2); Basophils % (auto) 0.2 %; Eosinophils # (auto) 0.11 K/uL (0-0.5); Eosinophils % (auto) 1.3 %; Hematocrit (blood only) 26.6 % (42-52); Hemoglobin 8.6 g/dL (14.0-18.0); Immature Granulocytes % (auto) 1.2 %; Lymphocytes # (auto) 1.52 K/uL (1.2-3.4); Lymphocytes % (auto) 18.5 %; Mean Corpuscular Hemoglobin 25.5 pg (25-34); Mean Corpuscular Hgb Conc 32.3 g/dL (32-36); Mean Corpuscular Volume 78.9 fL (80-100); Mean Platelet Volume 10.5 fL (7.4-10.4); Monocytes # (auto) 1.04 K/uL (0.11-0.59); Monocytes % (auto) 12.6 %; Neutrophils # (auto) 5.44 K/uL (1.4-6.5); Neutrophils % (auto) 66.2 %; Platelet Count 186 K/uL (130-400); RDW Coefficient of Variation 16.7 % (11.5-14.5); RDW Standard Deviation 48.1 fL (36.4-46.3); Red Blood Count 3.37 M/uL (4.7-6.1); White Blood Count 8.23 K/uL (4.8-10.8)
[2020-05-23 02:13] LABS: INR 1.1 (0.9-1.1); Prothrombin Time 11.9 Seconds (9.0-12.0)
[2020-05-23 02:14] LABS: BUN Creatinine Ratio 15.1 (10-20); Calcium 7.7 mg/dl (8.5-10.1); Creatinine Clr Calc Pharmacy 68.7 ml/min; Est GFR (African American) 78.6; Est GFR (Non-African American) 67.8; Potassium 3.8 mmol/L (3.5-5.1)
[2020-05-23 02:24] LABS: Partial Thromboplastin Ratio 2.1
[2020-05-23 02:32] LABS: Partial Thromboplastin Time 57.8 Seconds (21.0-31.0)
[2020-05-23 05:52] LABS: Partial Thromboplastin Ratio 2.2
[2020-05-23] MEDS: PANTOprazole 40 MG TAB PO SCH (06:02)
[2020-05-23] MEDS: Heparin IV Standard *NO* Bolus IV SCH ×2 (07:25→07:26)
--- NOTE | 2020-05-23 08:08 | Hospitalist Progress Note ---
Date of Service May 23, 2020 Assessment & Plan (1) Encephalopathy: -as per ED notes 05/19/2020 "This is a 59-year-old male brought in from home via EMS due to altered mental status. Patient has home health that comes and visits him on Tuesday, Tuesday, and Tuesday,. Patient last seen in his usual state of health on Tuesday. The home health nurse did come for her visit this morning, however he did not answer the door or let her in. After some time and for an unknown reason EMS was contacted many hours later. EMS found the patient in his house to be altered with evidence of facial trauma. Patient seemed confused, but was awake and could follow commands. They did check blood sugar prehospital which was 131. Patient cannot provide much in the way of details or history. Patient does have a complicated past medical history including diabetes, psychosis, and substance abuse." -CT head showed no hemorrhage, mass effect, or evidence of acute territorial ischemia -polypharmacy is considered as a cause versus alternative reason; had Adderall, Amitriptyline and prozac were initially held ADD (attention deficit disorder): -on adderall Seasonal Affective disorder -patient reports that home dose Amitriptyline and prozac is primarily for pain, currently on home doses -currently on home dose Amitriptyline 25 mg qhs Anxiety, paranoia -05/22/2020 sher patient also called 911 because he was concerned that his keys in front of him were not his usual keys and he was concerned that somehow his daughter Raeann or patient friend Osman could have have had inappropriate access to his house and his goal was to call for police to do a drive by to verify that no one was in his house. he was also concerned that his daughter Raeann was involved in a radical group trying to cause him to be persecuted. At the same time, he allows for medical doctor to call his daughter Raeann to update her. Raeann on the telephone also reporting that his father had episodes of delusional thoughts and accusations made in the past. I have requested behavioral health consult to evaluate these delusions and paranoia (2) Contusion of face: -from fall injury -05/21/2020 patient clarifies that he had fallen from bed (3) Fracture of distal end of femur: Deep Vein Thrombosis Left Great toe osteomyelitis -admission imaging findings were significant for acute comminuted mildly displaced and angulated fracture of the distal femoral metaphysis with fracture extension into the superior aspect of the trochlear groove; Acute nondisplaced fracture of the medial patella; Moderate lipohemarthrosis with posttraumatic harris bcutaneous edema on CT of the Lower extremity AND deep venous thrombosis identified in the calf within the posterior tibial and peroneal veins on ultrasound of the lower left extremity -patient was initially placed on heparin drip IV as per discussion with Dr. Rosa -on 05/21/2020, patient had Insertion Of Vena Cava Filter via Right Internal Jugular Approach by Dr. Fleming and then subsequently on the same day operated on by orthopedics Dr. Rodriguez for Left Distal Femur Fracture Open Reduction Internal Fixation and Left Great Toe Amputation(Left) -after discussing with Dr. Rodriguez and the patient on 05/23/2020, systemic anticoagulation resumed on night of 05/22/2020 and coumadin 5 mg given, plan is to continue IV heparin and coumadin 5 mg daily, and target INR 2 to3 before stopping heparin, monitor the Hgb closely -patient has prn pain medications -PT/OT evaluations -anticipate that case management will need patient to be arranged to go to a facility physical therapy center versus snf facility for physical rehabilation -currently on Cefazolin IV antibiotics and Zerbaxa (ceftolozane/tazobactam) IV, continue for now Rhabdomyolysis -admission CPK admission 1169 -improved with IV fluids, CK stabilizing around 500 recently and patient was give additional IV fluids Acute Kidney Injury -Creatinine on admission 1.49, creatinine improved with IV fluids on this admission NARINDER on CPAP: -CPAP qhs DM type 2 (diabetes mellitus, type 2): -Most recent Hba1c 6.5 on 04/19 -Continue to hold outpatient DM med -Continue Lantus and insulin sliding scale while inpatient Hypertension: -Continue Amlodipine and metoprolol, lisinopril Full code as per daughter, Ms. Raeann Jack (based in [place]). [phone]. Admission and Anticipated Discharge Date Admission Date: May 19, 2020 Subjective no acute events overnight. no dizziness. no headache. no shortness of breath. breathing on room air. no chest pain. left leg discomforts are tolerable as per patient. the patient expresses his understanding that his daughter plans to visit him today in the hospital Review of Systems Review of Systems: All systems reviewed & are unremarkable except as noted in Subjective Physical Exam Constitutional: comfortable Eyes: PERRL, conjunctivae normal, anicteric sclerae EOM intact bilaterally ENMT: Nose: + facial exam abnormality (facial ecchymosis around the eyes) Neck: trachea midline, no thyromegaly normal visual inspection Respiratory: normal respiratory effort, lungs clear to auscultation Cardiovascular: Rate/Rhythm: regular rate Gastrointestinal (Abdomen): normal bowel sounds, soft, nontender, no hepatosplenomegaly Musculoskeletal: left leg in dressing and boot Neurologic: PERRL, EOMI, accommodation nl, no face palsy, no dysarthria Psychiatric: A+Ox3, euthymic affect Results & Data Results & Data ([facility]) Vital Signs (Past 12 Hours) Vital Signs Temp Pulse Pulse Resp BP Pulse Ox 05/23/20 07:20 37.3 C 92 H 19 146/83 H 96 05/23/20 02:52 36.9 C 88 16 138/74 92 05/22/20 23:27 37.6 C H 99 H 16 131/78 96 05/22/20 23:00 115 H (1) Contusion of face Encounter type: initial encounter Qualified Code(s): S00.83XA - Contusion of other part of head, initial encounter (2) Fracture of distal end of femur Encounter type: initial encounter Fracture morphology: other fracture Fracture type: closed Laterality: left Qualified Code(s): S72.492A - Other fracture of lower end of left femur, initial encounter for closed fracture
[2020-05-23] MEDS: CEFTOLOZANE/TAZOBACTAM 3,000 MG in DEXTROSE 5% 100 ML IV SCH (08:34)
[2020-05-23] MEDS: CEFAZOLIN 1000MG 1,000 MG/7.5 ML SYR IV SCH (08:34)
[2020-05-23] MEDS: ROSUVASTATIN CALCIUM 20 MG TAB PO SCH (08:35)
[2020-05-23] MEDS: ASPIRIN 81 MG ECTAB PO SCH (08:35)
[2020-05-23] MEDS: FERROUS GLUCONATE 324 MG TAB PO SCH ×2 (08:35→17:25)
[2020-05-23] MEDS: DOCUSATE SODIUM 100 MG CAP PO SCH ×2 (08:36→21:17)
[2020-05-23] MEDS: INSULIN ASPART 100 UNITS/ML 3 ML PEN SC SCH ×4 (08:36→21:47)
[2020-05-23] MEDS: CALCIUM 600MG + VIT D 400 IU TAB PO SCH (08:36)
[2020-05-23] MEDS: GABAPENTIN 400 MG CAP PO SCH ×3 (08:36→15:32)
[2020-05-23] MEDS: MAGNESIUM OXIDE 400 MG TAB PO SCH (08:36)
[2020-05-23] MEDS: METOPROLOL TARTRATE 50 MG TAB PO SCH ×2 (08:36→21:17)
[2020-05-23] MEDS: ASCORBIC ACID 500 MG TAB PO SCH ×2 (08:36→17:25)
[2020-05-23] MEDS: METAXALONE 800 MG TABLET PO SCH ×2 (08:37→15:32)
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
[2020-05-23] MEDS: OXYCODONE HCL IR 5 MG TAB (IMMEDIATE RELEASE) PO PRN (12:26)
[2020-05-23] MEDS ORDERED: OLANZAPINE 2.5 MG TAB PO PRN (14:50)
--- NOTE | 2020-05-23 15:18 | Progress Notes ---
DATE: 05/23/2020 The patient is resting comfortably in bed with no significant problems. His right knee x-ray showed no complications relative to his knee prosthesis. He has requested a knee brace if his daughter cannot find his one at home. He has also requested a lift for the right shoe to make it even to the left with the postop shoe. He is afebrile. His vital signs are stable. Labs are noted. The toe culture has grown out a yeast. He has been placed back on his anticoagulation. He has a palpable dorsalis pedis and posterior tibial pulse. His dressing is changed. His toe wound is healing well with a little bit of oozing which is controlled with pressure. He can wiggle his toes, flex and extend the ankle and has normal sensation in his foot. Knee motion is 0-30. He is able to do a quad set. His knee is not significantly swollen. The thigh incision is completely benign. There is no necrosis. The abrasion is healing fine. He is able to do a quad set. A new dressing is applied along with his postop shoe and a hinged brace locked in extension. Dr. Schaefer will be stationary fireman this weekend. The patient is to be nonweightbearing on the left leg. In PT only his left knee brace may be unlocked, so that he can bend his knee starting 0-45 degrees with active movement. Use postoperative shoe on the left foot. He will need follow up with me in 2 weeks for wound check and suture removal. [facility]. He will need to be anticoagulated for his DVT and to prevent further DVT from occurring.
[2020-05-23] MEDS: HEPARIN SODIUM/DEXTROSE 25,000 UNITS/500 ML BAG IV SCH (15:30)
[2020-05-23] MEDS: MULTIVITAMIN TAB PO SCH (15:32)
[2020-05-23] MEDS: WARFARIN SOD 5 MG TAB PO SCH (15:33)
[2020-05-23] MEDS: ACETAMINOPHEN 325 MG TAB PO PRN (17:37)
[2020-05-23] MEDS: lisinopriL 40 MG TAB PO SCH (21:17)
[2020-05-23] MEDS: SENNA 8.6 MG TAB PO SCH (21:17)
[2020-05-23] MEDS: INDAPAMIDE 1.25 MG TAB PO SCH (21:17)
[2020-05-23] MEDS: BACLOFEN 10 MG TAB PO SCH (21:17)
[2020-05-23] MEDS: AMLODIPINE BESYLATE 5 MG TAB PO SCH (21:17)
[2020-05-23] MEDS: AMITRIPTYLINE HCL 25 MG TAB PO SCH (21:17)
[2020-05-23] MEDS: cephALEXin 500 MG CAP PO SCH (21:17)
[2020-05-23] MEDS: OXYCODONE HCL 20 MG TABCR (OXYCONTIN) PO PRN (21:25)
[2020-05-24] MEDS: ACETAMINOPHEN 325 MG TAB PO PRN ×3 (00:31→18:38)
[2020-05-24] MEDS: OXYCODONE HCL IR 5 MG TAB (IMMEDIATE RELEASE) PO PRN ×3 (00:32→18:38)
[2020-05-24] MEDS: PANTOprazole 40 MG TAB PO SCH (05:56)
[2020-05-24 06:09] LABS: Basophils # (auto) 0.02 K/uL (0-0.2); Basophils % (auto) 0.3 %; Eosinophils # (auto) 0.26 K/uL (0-0.5); Eosinophils % (auto) 3.7 %; Hematocrit (blood only) 27.4 % (42-52); Hemoglobin 8.5 g/dL (14.0-18.0); Immature Granulocytes % (auto) 1.4 %; Lymphocytes # (auto) 1.54 K/uL (1.2-3.4); Lymphocytes % (auto) 21.7 %; Mean Corpuscular Hemoglobin 24.8 pg (25-34); Mean Corpuscular Volume 79.9 fL (80-100); Mean Platelet Volume 9.9 fL (7.4-10.4); Monocytes # (auto) 0.75 K/uL (0.11-0.59); Monocytes % (auto) 10.5 %; Neutrophils # (auto) 4.44 K/uL (1.4-6.5); Neutrophils % (auto) 62.4 %; Platelet Count 193 K/uL (130-400); RDW Coefficient of Variation 16.8 % (11.5-14.5); Red Blood Count 3.43 M/uL (4.7-6.1); White Blood Count 7.11 K/uL (4.8-10.8)
[2020-05-24 06:27] LABS: INR 1.4 (0.9-1.1); Partial Thromboplastin Ratio 2.4; Prothrombin Time 14.6 Seconds (9.0-12.0)
[2020-05-24] MEDS: HEPARIN SODIUM/DEXTROSE 25,000 UNITS/500 ML BAG IV SCH ×3 (07:19→17:50)
--- NOTE | 2020-05-24 08:07 | Hospitalist Progress Note ---
Date of Service May 24, 2020 Assessment & Plan (1) Encephalopathy: -as per ED notes 05/19/2020 "This is a 59-year-old male brought in from home via EMS due to altered mental status. Patient has home health that comes and visits him on Tuesday, Tuesday, and Tuesday,. Patient last seen in his usual state of health on Tuesday. The home health nurse did come for her visit this morning, however he did not answer the door or let her in. After some time and for an unknown reason EMS was contacted many hours later. EMS found the patient in his house to be altered with evidence of facial trauma. Patient seemed confused, but was awake and could follow commands. They did check blood sugar prehospital which was 131. Patient cannot provide much in the way of details or history. Patient does have a complicated past medical history including diabetes, psychosis, and substance abuse." -CT head showed no hemorrhage, mass effect, or evidence of acute territorial ischemia -polypharmacy is considered as a cause versus alternative reason Seasonal Affective disorder Anxiety, delusions -patient reports that home dose Amitriptyline and prozac is primarily for pain, currently on home doses -currently on home dose Amitriptyline 25 mg qhs -05/22/2020 evening patient also called 911 because he was concerned that his keys in front of him were not his usual keys and he was concerned that somehow his daughter Raeann or patient friend Osman could have have had inappropriate access to his house and his goal was to call for police to do a drive by to verify that no one was in his house. he was also concerned that his daughter Raeann was involved in a radical group trying to cause him to be persecuted. At the same time, he allows for medical doctor to call his daughter Raeann to update her. Raeann on the telephone also reporting that his father had episodes of delusional thoughts and accusations made in the past. I have requested behavioral health consult to evaluate these delusions and paranoia -psychiatry service stopped fluoxetine and Adderall. they placed prn olanzapine if severe agitation -his daughter visited on 05/23/2020 and we discussed with patient about his health (2) Contusion of face: -from fall injury -05/21/2020 patient clarifies that he had fallen from bed (3) Fracture of distal end of femur: Deep Vein Thrombosis Left Great toe osteomyelitis -admission imaging findings were significant for acute comminuted mildly displaced and angulated fracture of the distal femoral metaphysis with fracture extension into the superior aspect of the trochlear groove; Acute nondisplaced fracture of the medial patella; Moderate lipohemarthrosis with posttraumatic subcutaneous edema on CT of the Lower extremity AND deep venous thrombosis identified in the calf within the posterior tibial and peroneal veins on ultrasound of the lower left extremity -patient was initially placed on heparin drip IV as per discussion with Dr. Rosa -on 05/21/2020, patient had Insertion Of Vena Cava Filter via Right Internal Jugular Approach by Dr. Fleming and then subsequently on the same day operated on by orthopedics Dr. Rodriguez for Left Distal Femur Fracture Open Reduction Internal Fixation and Left Great Toe Amputation(Left) -after discussing with Dr. Rodriguez and the patient on 05/23/2020, systemic anticoagulation resumed on night of 05/22/2020 and coumadin 5 mg given, plan is to continue IV heparin and coumadin 5 mg daily, and target INR 2 to3 before stopping heparin, monitor the Hgb closely -PT/OT evaluations; anticipate that case management will need patient to be arranged to go to a facility physical therapy center after hospital stay -the Cefazolin IV antibiotics and Zerbaxa (ceftolozane/tazobactam) IV was stopped on 05/23/2020 and then transitioned to oral Cephalexin (Infectious disease consult note from Dr. Rashaad Quick on 05/22/2020 recommending to stop Cefazolin IV and Zerbaxa (ceftolozane/tazobactam) IV and instead place on Cephalexin chronically and that patient should have follow up with infectiouse disease Dr. Conley in [facility] infectiouse disease clinic after discharge) -narcotic pain medications adjusted on 05/24/2020, continue other pain medicat ions of gabapentin, balcofen, Skelaxin (metaxalone) Rhabdomyolysis -admission CPK admission 1169 -improved with IV fluids, CK stabilizing around 500 recently as of 05/22/2020 and patient was give additional IV fluids -trend CK Acute Kidney Injury -Creatinine on admission 1.49, creatinine improved with IV fluids on this admission NARINDER on CPAP: -CPAP qhs DM type 2 (diabetes mellitus, type 2): -Most recent Hba1c 6.5 on 04/19 -Continue to hold outpatient DM med -Continue Lantus and insulin sliding scale while inpatient Hypertension: -Continue Amlodipine and metoprolol, lisinopril, indapamide Full code as per daughter, Ms. Raeann Jack (based in [place]). [phone]. Admission and Anticipated Discharge Date Admission Date: May 19, 2020 Subjective patient discussed that Dr. Rodriguez placed the left leg in a brace. he wanted adjustment to pain medications. no acute distress. sitting up at bedside as he ate the breakfast. no dizziness. no headache. no chest pain. no abdomen pain. no vomiting. no shortness of breath. breathing on room air he is calm and cooperative. Review of Systems Review of Systems: All systems reviewed & are unremarkable except as noted in Subjective Physical Exam Constitutional: comfortable Eyes: PERRL, conjunctivae normal, anicteric sclerae EOM intact bilaterally ENMT: Nose: + facial exam abnormality (facial ecchymosis around the eyes) Neck: trachea midline, no thyromegaly normal visual inspection Respiratory: normal respiratory effort, lungs clear to auscultation Cardiovascular: Rate/Rhythm: regular rate Gastrointestinal (Abdomen): normal bowel sounds, soft, nontender, no hepatosplenomegaly Neurologic: PERRL, EOMI, accommodation nl, no face palsy, no dysarthria Psychiatric: A+Ox3, euthymic affect Results & Data Results & Data ([facility]) Vital Signs (Past 12 Hours) Vital Signs Temp Pulse Pulse Resp BP Pulse Ox 05/24/20 07:19 36.8 C 86 20 143/79 H 94 05/24/20 03:21 36.6 C 77 16 122/73 95 05/24/20 00:19 36.8 C 78 18 106/68 94 05/23/20 23:48 87 05/23/20 20:16 36.8 C 103 H 22 116/67 94 (1) Fracture of distal end of femur Encounter type: initial encounter Fracture morphology: other fracture Fracture type: closed Laterality: left Qualified Code(s): S72.492A - Other fracture of lower end of left femur, initial encounter for closed fracture (2) Contusion of face Encounter type: initial encounter Qualified Code(s): S00.83XA - Contusion of other part of head, initial encounter
[2020-05-24] MEDS: ASPIRIN 81 MG ECTAB PO SCH (08:08)
[2020-05-24] MEDS: cephALEXin 500 MG CAP PO SCH ×2 (08:08→20:55)
[2020-05-24] MEDS: FERROUS GLUCONATE 324 MG TAB PO SCH ×2 (08:08→17:48)
[2020-05-24] MEDS: METOPROLOL TARTRATE 50 MG TAB PO SCH ×2 (08:08→20:55)
[2020-05-24] MEDS: DOCUSATE SODIUM 100 MG CAP PO SCH ×2 (08:08→20:55)
[2020-05-24] MEDS: ASCORBIC ACID 500 MG TAB PO SCH ×2 (08:08→17:48)
[2020-05-24] MEDS: METAXALONE 800 MG TABLET PO SCH ×2 (08:09→15:15)
[2020-05-24] MEDS: GABAPENTIN 400 MG CAP PO SCH ×3 (08:09→15:16)
[2020-05-24] MEDS: CALCIUM 600MG + VIT D 400 IU TAB PO SCH (08:09)
[2020-05-24] MEDS: MAGNESIUM OXIDE 400 MG TAB PO SCH (08:10)
[2020-05-24] MEDS: ROSUVASTATIN CALCIUM 20 MG TAB PO SCH (08:10)
[2020-05-24] MEDS: INSULIN ASPART 100 UNITS/ML 3 ML PEN SC SCH ×4 (08:11→20:56)
[2020-05-24] MEDS: OXYCODONE HCL 10 MG TABCR (OXYCONTIN) PO SCH ×2 (08:19→20:54)
[2020-05-24 14:37] LABS: Partial Thromboplastin Ratio 2.1
[2020-05-24 14:40] LABS: Partial Thromboplastin Time 57.6 Seconds (21.0-31.0)
[2020-05-24] MEDS: MULTIVITAMIN TAB PO SCH (15:15)
[2020-05-24] MEDS: WARFARIN SOD 5 MG TAB PO SCH (15:15)
[2020-05-24] MEDS: lisinopriL 40 MG TAB PO SCH (20:54)
[2020-05-24] MEDS: SENNA 8.6 MG TAB PO SCH (20:54)
[2020-05-24] MEDS: INDAPAMIDE 1.25 MG TAB PO SCH (20:54)
[2020-05-24] MEDS: AMITRIPTYLINE HCL 25 MG TAB PO SCH (20:55)
[2020-05-24] MEDS: BACLOFEN 10 MG TAB PO SCH (20:55)
[2020-05-24] MEDS: AMLODIPINE BESYLATE 5 MG TAB PO SCH (20:55)
[2020-05-25] MEDS: HEPARIN SODIUM/DEXTROSE 25,000 UNITS/500 ML BAG IV SCH ×3 (05:23→12:28)
[2020-05-25] MEDS: PANTOprazole 40 MG TAB PO SCH (05:33)
[2020-05-25 08:41] LABS: Basophils # (auto) 0.01 K/uL (0-0.2); Basophils % (auto) 0.2 %; Eosinophils # (auto) 0.26 K/uL (0-0.5); Eosinophils % (auto) 4.2 %; Hematocrit (blood only) 27.7 % (42-52); Hemoglobin 9.2 g/dL (14.0-18.0); Immature Granulocytes # (auto) 0.11 K/uL (0.00-0.02); Immature Granulocytes % (auto) 1.8 %; Lymphocytes # (auto) 1.11 K/uL (1.2-3.4); Mean Corpuscular Hemoglobin 26.1 pg (25-34); Mean Corpuscular Hgb Conc 33.2 g/dL (32-36); Mean Corpuscular Volume 78.5 fL (80-100); Mean Platelet Volume 10.1 fL (7.4-10.4); Monocytes # (auto) 0.77 K/uL (0.11-0.59); Monocytes % (auto) 12.5 %; Neutrophils # (auto) 3.91 K/uL (1.4-6.5); Neutrophils % (auto) 63.3 %; Platelet Count 222 K/uL (130-400); RDW Coefficient of Variation 16.6 % (11.5-14.5); RDW Standard Deviation 47.9 fL (36.4-46.3); Red Blood Count 3.53 M/uL (4.7-6.1); White Blood Count 6.17 K/uL (4.8-10.8)
[2020-05-25 09:08] LABS: INR 1.5 (0.9-1.1); Partial Thromboplastin Ratio 2.5; Prothrombin Time 15.5 Seconds (9.0-12.0)
[2020-05-25 09:13] LABS: Albumin Level 2.8 gm/dl (3.4-5.0); BUN Creatinine Ratio 19.3 (10-20); Calcium 9.1 mg/dl (8.5-10.1); Creatinine Clr Calc Pharmacy 67.3 ml/min; Est GFR (African American) 75.5; Est GFR (Non-African American) 65.1; Magnesium 2.1 mg/dl (1.8-2.4); Potassium 3.9 mmol/L (3.5-5.1)
[2020-05-25 09:15] LABS: Albumin Globulin Ratio 0.6 (0.9-2); Bilirubin,Total 0.7 mg/dl (0.2-1); Globulin 4.6 gm/dl (2.5-4.0); Total Protein 7.4 gm/dl (6.4-8.2)
[2020-05-25] MEDS ORDERED: SODIUM CHLORIDE 0.9% 1000ML 500 ML IV ONE (09:27)
[2020-05-25 09:29] LABS: Partial Thromboplastin Time 69.1 Seconds (21.0-31.0)
[2020-05-25] MEDS: cephALEXin 500 MG CAP PO SCH ×2 (09:35→20:35)
[2020-05-25] MEDS: ASPIRIN 81 MG ECTAB PO SCH (09:36)
[2020-05-25] MEDS: CALCIUM 600MG + VIT D 400 IU TAB PO SCH (09:36)
[2020-05-25] MEDS: ASCORBIC ACID 500 MG TAB PO SCH ×2 (09:36→17:57)
[2020-05-25] MEDS: DOCUSATE SODIUM 100 MG CAP PO SCH ×2 (09:36→20:35)
[2020-05-25] MEDS: ROSUVASTATIN CALCIUM 20 MG TAB PO SCH (09:36)
[2020-05-25] MEDS: FERROUS GLUCONATE 324 MG TAB PO SCH ×2 (09:37→17:57)
[2020-05-25] MEDS: MAGNESIUM OXIDE 400 MG TAB PO SCH (09:37)
[2020-05-25] MEDS: INSULIN ASPART 100 UNITS/ML 3 ML PEN SC SCH ×4 (10:04→22:02)
[2020-05-25] MEDS: GABAPENTIN 400 MG CAP PO SCH ×3 (10:12→15:45)
[2020-05-25] MEDS: OXYCODONE HCL 10 MG TABCR (OXYCONTIN) PO SCH (10:12)
[2020-05-25] MEDS: METOPROLOL TARTRATE 50 MG TAB PO SCH ×2 (10:13→20:36)
--- NOTE | 2020-05-25 10:15 | Hospitalist Progress Note ---
Date of Service May 25, 2020 Assessment & Plan (1) Encephalopathy: ACUTE ENCEPHALOPATHY on thsi admission -as per ED notes 05/19/2020 "This is a 59-year-old male brought in from home via EMS due to altered mental status. Patient has home health that comes and visits him on Tuesday, Tuesday, and Tuesday,. Patient last seen in his usual state of health on Tuesday. The home health nurse did come for her visit this morning, however he did not answer the door or let her in. After some time and for an unknown reason EMS was contacted many hours later. EMS found the patient in his house to be altered with evidence of facial trauma. Patient seemed confused, but was awake and could follow commands. They did check blood sugar prehospital which was 131. Patient cannot provide much in the way of details or history. Patient does have a complicated past medical history including diabetes, psychosis, and substance abuse." -CT head showed no hemorrhage, mass effect, or evidence of acute territorial ischemia -polypharmacy is considered as a cause versus alternative reason Seasonal Affective disorder Anxiety, delusions -patient reports that home dose Amitriptyline and prozac is primarily for pain, currently on home doses -currently on home dose Amitriptyline 25 mg qhs -05/22/2020 evening patient also called 911 because he was concerned that his keys in front of him were not his usual keys and he was concerned that somehow his daughter Raeann or patient friend Osman could have have had inappropriate access to his house and his goal was to call for police to do a drive by to verify that no one was in his house. he was also concerned that his daughter Raeann was involved in a radical group trying to cause him to be persecuted. At the same time, he allows for medical doctor to call his daughter Raeann to update her. Raeann on the telephone also reporting that his father had episodes of delusional thoughts and accusations made in the past. I have requested behavioral health consult to evaluate these delusions and paranoia -psychiatry service stopped fluoxetine and Adderall. they placed prn olanzapine if severe agitation -his daughter visited on 05/23/2020 and we discussed with patient about his health (2) Contusion of face: -from fall injury -05/21/2020 patient clarifies that he had fallen from bed (3) Fracture of distal end of femur: Deep Vein Thrombosis of left lower extremity on admission (s/p Insertion Of Vena Cava Filter on this hospital admission, anticoagulation by anticoagulation treatment) Fracture of distal end of femur (s/p Left Distal Femur Fracture Open Reduction Internal Fixation on this hospital admission) Left Great toe osteomyelitis s/p (Left Great Toe Amputation on this hospital admission) -admission imaging findings were significant for acute comminuted mildly displaced and angulated fracture of the distal femoral metaphysis with fracture extension into the superior aspect of the trochlear groove; Acute nondisplaced fracture of the medial patella; Moderate lipohemarthrosis with posttraumatic subcutaneous edema on CT of the Lower extremity AND deep venous thrombosis identified in the calf within the posterior tibial and peroneal veins on ultrasound of the lower left extremity -patient was initially placed on heparin drip IV as per discussion with Dr. Rosa -on 05/21/2020, patient had Insertion Of Vena Cava Filter via Right Internal Jugular Approach by Dr. Fleming and then subsequently on the same day operated on by orthopedics Dr. Rodriguez for Left Distal Femur Fracture Open Reduction Internal Fixation and Left Great Toe Amputation(Left) -after discussing with Dr. Rodriguez and the patient on 05/23/2020, systemic anticoagulation resumed on night of 05/22/2020 and coumadin 5 mg given, plan is to continue IV heparin and coumadin 5 mg daily, and target INR 2 to3 before stopping heparin, monitor the Hgb closely -PT/OT evaluations; anticipate that case management will need patient to be arranged to go to a facility physical therapy center after hospital stay -the Cefazolin IV antibiotics and Zerbaxa (ceftolozane/tazobactam) IV was stopped on 05/23/2020 and then transitioned to oral Cephalexin (Infectious disease consult note from Dr. Rashaad Quick on 05/22/2020 recommending to stop Cefazolin IV and Zerbaxa (ceftolozane/tazobactam) IV and instead place on Cephalexin chronically and that patient should have follow up with infectiouse disease Dr. Conley in [facility] infectiouse disease clinic after discharge) -narcotic pain medications adjusted on 05/24/2020, continue other pain medications of gabapentin, balcofen, Skelaxin (metaxalone); increase night time dose of oxycontin pain medication Rhabdomyolysis -admission CPK admission 1169 -improved with IV fluids, CK stabilizing around 500 recently as of 05/22/2020, CK elevated above 700 on 05/25/2020 and he is to received additional IV fluids Acute Kidney Injury -Creatinine on admission 1.49, creatinine improved with IV fluids on this admission NARINDER on CPAP: -CPAP qhs DM type 2 (diabetes mellitus, type 2): -Most recent Hba1c 6.5 on 04/19 -Continue to hold outpatient DM med -Continue Lantus and insulin sliding scale while inpatient Hypertension: -Continue Amlodipine and metoprolol, lisinopril, indapamide Full code as per daughter, Ms. Raeann Jack (based in [place]). [phone]. Admission and Anticipated Discharge Date Admission Date: May 19, 2020 Subjective nurse reported patient was drowsy from sleep in AM. When medical doctor arrived, patient sitting on wheelchair and watching TV. He is baseline mental status. he would like night time pain medication adjustment. currently no acute distress. on room air. no shortness of breath. no vomiting. we discussed hospital course and management of anticoagulation; and creatinine kinase levels for which his is getting IV fluids Review of Systems Review of Systems: All systems reviewed & are unremarkable except as noted in Subjective Physical Exam Constitutional: comfortable Eyes: PERRL, conjunctivae normal, anicteric sclerae EOM intact bilaterally ENMT: Nose: + facial exam abnormality (facial ecchymosis around the eyes) Neck: trachea midline, no thyromegaly normal visual inspection Respiratory: normal respiratory effort, lungs clear to auscultation Cardiovascular: Rate/Rhythm: regular rate Gastrointestinal (Abdomen): normal bowel sounds, soft, nontender, no hepatosplenomegaly Musculoskeletal: LEFT LEG IN DRESSING AND IMMOBILIZER Neurologic: PERRL, EOMI, accommodation nl, no face palsy, no dysarthria Psychiatric: A+Ox3, euthymic affect Results & Data Results & Data ([facility]) Vital Signs (Past 12 Hours) Vital Signs Temp Pulse Pulse Resp BP Pulse Ox 05/25/20 09:19 36.7 C 109 H 20 97/69 L 96 05/25/20 03:28 36.6 C 86 18 116/72 91 05/24/20 23:57 37 C 81 16 113/66 94 05/24/20 23:38 95 H (1) Fracture of distal end of femur Encounter type: initial encounter Fracture morphology: other fracture Fracture type: closed Laterality: left Qualified Code(s): S72.492A - Other fracture of lower end of left femur, initial encounter for closed fracture (2) Contusion of face Encounter type: initial encounter Qualified Code(s): S00.83XA - Contusion of other part of head, initial encounter
[2020-05-25] MEDS: METAXALONE 800 MG TABLET PO SCH ×2 (10:37→15:45)
[2020-05-25] MEDS: OXYCODONE HCL IR 5 MG TAB (IMMEDIATE RELEASE) PO PRN (12:33)
[2020-05-25] MEDS: ACETAMINOPHEN 325 MG TAB PO PRN (12:33)
[2020-05-25] MEDS ORDERED: SODIUM CHLORIDE 0.65% NA SOLN 45 ML (OCEAN) PRN (13:55)
[2020-05-25] MEDS ORDERED: SODIUM CHLORIDE 0.65% NA SOLN 45 ML (OCEAN) ONE (13:58)
[2020-05-25] MEDS: WARFARIN SOD 5 MG TAB PO SCH (15:45)
[2020-05-25] MEDS: MULTIVITAMIN TAB PO SCH (15:46)
[2020-05-25 16:46] LABS: INR 1.5 (0.9-1.1); Partial Thromboplastin Ratio 2.2; Prothrombin Time 15.2 Seconds (9.0-12.0)
[2020-05-25 16:50] LABS: Partial Thromboplastin Time 61.4 Seconds (21.0-31.0)
[2020-05-25] MEDS ORDERED: SODIUM CHLORIDE 0.9% 1000ML 1,000 ML IV SCH (17:00)
[2020-05-25] MEDS: SENNA 8.6 MG TAB PO SCH (20:35)
[2020-05-25] MEDS: BACLOFEN 10 MG TAB PO SCH (20:35)
[2020-05-25] MEDS: lisinopriL 40 MG TAB PO SCH (20:35)
[2020-05-25] MEDS: AMITRIPTYLINE HCL 25 MG TAB PO SCH (20:36)
[2020-05-25] MEDS: INDAPAMIDE 1.25 MG TAB PO SCH (20:36)
[2020-05-25] MEDS: OXYCODONE HCL 20 MG TABCR (OXYCONTIN) PO SCH (20:36)
[2020-05-25] MEDS: AMLODIPINE BESYLATE 5 MG TAB PO SCH (20:36)
[2020-05-26] MEDS: HEPARIN SODIUM/DEXTROSE 25,000 UNITS/500 ML BAG IV SCH ×2 (00:28→23:01)
[2020-05-26] MEDS: OXYCODONE HCL IR 5 MG TAB (IMMEDIATE RELEASE) PO PRN ×2 (00:37→15:56)
[2020-05-26] MEDS: FERROUS GLUCONATE 324 MG TAB PO SCH ×2 (08:02→18:23)
[2020-05-26] MEDS: ASCORBIC ACID 500 MG TAB PO SCH ×2 (08:02→19:37)
[2020-05-26] MEDS: PANTOprazole 40 MG TAB PO SCH (08:02)
[2020-05-26 09:19] LABS: Basophils # (auto) 0.03 K/uL (0-0.2); Basophils % (auto) 0.5 %; Eosinophils # (auto) 0.23 K/uL (0-0.5); Eosinophils % (auto) 3.7 %; Hematocrit (blood only) 27.8 % (42-52); Hemoglobin 9.1 g/dL (14.0-18.0); Immature Granulocytes # (auto) 0.18 K/uL (0.00-0.02); Immature Granulocytes % (auto) 2.9 %; Lymphocytes # (auto) 1.27 K/uL (1.2-3.4); Lymphocytes % (auto) 20.3 %; Mean Corpuscular Hemoglobin 26.1 pg (25-34); Mean Corpuscular Hgb Conc 32.7 g/dL (32-36); Mean Corpuscular Volume 79.9 fL (80-100); Mean Platelet Volume 10.6 fL (7.4-10.4); Monocytes # (auto) 0.56 K/uL (0.11-0.59); Monocytes % (auto) 8.9 %; Neutrophils % (auto) 63.7 %; Platelet Count 286 K/uL (130-400); RDW Coefficient of Variation 16.8 % (11.5-14.5); RDW Standard Deviation 48.7 fL (36.4-46.3); Red Blood Count 3.48 M/uL (4.7-6.1); White Blood Count 6.27 K/uL (4.8-10.8)
[2020-05-26] MEDS: ASPIRIN 81 MG ECTAB PO SCH (09:32)
[2020-05-26] MEDS: DOCUSATE SODIUM 100 MG CAP PO SCH ×2 (09:32→22:14)
[2020-05-26] MEDS: CALCIUM 600MG + VIT D 400 IU TAB PO SCH (09:32)
[2020-05-26] MEDS: GABAPENTIN 400 MG CAP PO SCH ×3 (09:33→17:31)
[2020-05-26] MEDS: METOPROLOL TARTRATE 50 MG TAB PO SCH ×2 (09:33→22:23)
[2020-05-26] MEDS: cephALEXin 500 MG CAP PO SCH ×2 (09:33→22:03)
[2020-05-26] MEDS: INSULIN ASPART 100 UNITS/ML 3 ML PEN SC SCH ×4 (09:34→22:27)
[2020-05-26 09:44] LABS: INR 1.6 (0.9-1.1); Partial Thromboplastin Ratio 2.1; Prothrombin Time 16.7 Seconds (9.0-12.0)
[2020-05-26] MEDS: OXYCODONE HCL 10 MG TABCR (OXYCONTIN) PO SCH (09:44)
[2020-05-26 09:46] LABS: Partial Thromboplastin Time 59.2 Seconds (21.0-31.0)
--- NOTE | 2020-05-26 11:14 | Hospitalist Progress Note ---
Date of Service May 26, 2020 Assessment & Plan (1) Encephalopathy: ACUTE ENCEPHALOPATHY on thsi admission -as per ED notes 05/19/2020 "This is a 59-year-old male brought in from home via EMS due to altered mental status. Patient has home health that comes and visits him on Tuesday, Tuesday, and Tuesday,. Patient last seen in his usual state of health on Tuesday. The home health nurse did come for her visit this morning, however he did not answer the door or let her in. After some time and for an unknown reason EMS was contacted many hours later. EMS found the patient in his house to be altered with evidence of facial trauma. Patient seemed confused, but was awake and could follow commands. They did check blood sugar prehospital which was 131. Patient cannot provide much in the way of details or history. Patient does have a complicated past medical history including diabetes, psychosis, and substance abuse." -CT head showed no hemorrhage, mass effect, or evidence of acute territorial ischemia -polypharmacy is considered as a cause versus alternative reason Seasonal Affective disorder Anxiety, delusions -patient reports that home dose Amitriptyline and prozac is primarily for pain, currently on home doses -currently on home dose Amitriptyline 25 mg qhs -05/22/2020 evening patient also called 911 because he was concerned that his keys in front of him were not his usual keys and he was concerned that somehow his daughter Raeann or patient friend Osman could have have had inappropriate access to his house and his goal was to call for police to do a drive by to verify that no one was in his house. he was also concerned that his daughter Raeann was involved in a radical group trying to cause him to be persecuted. At the same time, he allows for medical doctor to call his daughter Raeann to update her. Raeann on the telephone also reporting that his father had episodes of delusional thoughts and accusations made in the past. I have requested behavioral health consult to evaluate these delusions and paranoia -psychiatry service stopped fluoxetine and Adderall. they placed prn olanzapine if severe agitation -his daughter visited on 05/23/2020 and we discussed with patient about his health (2) Contusion of face: -from fall injury -05/21/2020 patient clarifies that he had fallen from bed (3) Fracture of distal end of femur: Deep Vein Thrombosis of left lower extremity on admission (s/p Insertion Of Vena Cava Filter on this hospital admission, anticoagulation by anticoagulation treatment) Fracture of distal end of femur (s/p Left Distal Femur Fracture Open Reduction Internal Fixation on this hospital admission) Left Great toe osteomyelitis s/p (Left Great Toe Amputation on this hospital admission) -admission imaging findings were significant for acute comminuted mildly displaced and angulated fracture of the distal femoral metaphysis with fracture extension into the superior aspect of the trochlear groove; Acute nondisplaced fracture of the medial patella; Moderate lipohemarthrosis with posttraumatic subcutaneous edema on CT of the Lower extremity AND deep venous thrombosis identified in the calf within the posterior tibial and peroneal veins on ultrasound of the lower left extremity -patient was initially placed on heparin drip IV as per discussion with Dr. Rosa -on 05/21/2020, patient had Insertion Of Vena Cava Filter via Right Internal Jugular Approach by Dr. Fleming and then subsequently on the same day operated on by orthopedics Dr. Rodriguez for Left Distal Femur Fracture Open Reduction Internal Fixation and Left Great Toe Amputation(Left) -after discussing with Dr. Rodriguez and the patient on 05/23/2020, systemic anticoagulation resumed on night of 05/22/2020 and coumadin 5 mg given, plan is to continue IV heparin and coumadin 5 mg daily, and target INR 2 to3 before stopping heparin, monitor the Hgb closely -PT/OT evaluations; anticipate that case management will need patient to be arranged to go to a facility physical therapy center after hospital stay -the Cefazolin IV antibiotics and Zerbaxa (ceftolozane/tazobactam) IV was stopped on 05/23/2020 and then transitioned to oral Cephalexin (Infectious disease consult note from Dr. Rashaad Quick on 05/22/2020 recommending to stop Cefazolin IV and Zerbaxa (ceftolozane/tazobactam) IV and instead place on Cephalexin chronically and that patient should have follow up with infectiouse disease Dr. Conley in [facility] infectiouse disease clinic after discharge) -narcotic pain medications adjusted on 05/24/2020, continue other pain medications of gabapentin, balcofen, Skelaxin (metaxalone); increase night time dose of oxycontin pain medication -05/26/2020: patient is not pleased with current pain medication scheduling, he wishes to sign release of records from previous orthopedic pain management. he agrees to be seen by inpatient pain management to assess for safety of pain medications with his complicated pain medication regimen. he is not in acute distress on my exam. INR is 1.6, will increase previous warfarin from 5 mg to 6 mg daily. continue heparin IV Rhabdomyolysis -admission CPK admission 1169 -improved with IV fluids, CK stabilizing around 500 recently as of 05/22/2020, CK elevated above 700 on 05/25/2020 and he received additional IV fluids with CK trending down below 500. avoid crestor at this time Acute Kidney Injury -Creatinine on admission 1.49, creatinine improved with IV fluids on this admission NARINDER on CPAP: -CPAP qhs DM type 2 (diabetes mellitus, type 2): -Most recent Hba1c 6.5 on 04/19 -Continue to hold outpatient DM med -Continue Lantus and insulin sliding scale while inpatient Hypertension: -Continue Amlodipine and metoprolol, lisinopril, indapamide Full code as per daughter, Ms. Raeann Jack (based in [place]). [phone]. Admission and Anticipated Discharge Date Admission Date: May 19, 2020 Subjective patient is not pleased with current pain medication scheduling, he wishes to sign release of records from previous orthopedic pain management. he agrees to be seen by inpatient pain management to assess for safety of pain medications with his complicated pain medication regimen. he is not in acute distress on my exam. no chest pain. no shortness of breath. uses the CPAP at night. on room air during awake daytime hours. no abdomen pain. no nausea. no vomiting. no fevers. INR is 1.6, will increase previous warfarin from 5 mg to 6 mg daily. continue heparin IV Review of Systems Review of Systems: All systems reviewed & are unremarkable except as noted in Subjective Physical Exam Constitutional: comfortable Eyes: PERRL, conjunctivae normal, anicteric sclerae EOM intact bilaterally ENMT: Nose: + facial exam abnormality (facial ecchymosis around the eyes) Neck: trachea midline, no thyromegaly normal visual inspection Respiratory: normal respiratory effort, lungs clear to auscultation Cardiovascular: Rate/Rhythm: regular rate Gastrointestinal (Abdomen): normal bowel sounds, soft, nontender, no hepatosplenomegaly Musculoskeletal: Head/Neck/Chest: normocephalic and head atraumatic Neurologic: PERRL, EOMI, accommodation nl, no face palsy, no dysarthria Psychiatric: A+Ox3, euthymic affect Results & Data Results & Data ([facility]) Vital Signs (Past 12 Hours) Vital Signs Temp Pulse Resp BP Pulse Ox 05/26/20 07:37 36.6 C 110 H 18 114/73 96 05/26/20 00:30 37.0 C 107 H 16 126/53 L 95 (1) Contusion of face Encounter type: initial encounter Qualified Code(s): S00.83XA - Contusion of other part of head, initial encounter (2) Fracture of distal end of femur Encounter type: initial encounter Fracture morphology: other fracture Fracture type: closed Laterality: left Qualified Code(s): S72.492A - Other fracture of lower end of left femur, initial encounter for closed fracture
--- NOTE | 2020-05-26 12:29 | Orthopedic Progress Note ---
Date of Service May 26, 2020 Assessment & Plan (1) Osteomyelitis of toe of left foot: POD 5 -s/p left great toe partial amputation. Continue dressing to left foot. Maintain NWB LLE due to left femur fracture Post op shoe on left foot when out of bed to protect left foot. Allowed for ROM left ankle/toes as tolerated. Present on Admission?: Yes (2) Fracture of distal end of femur: POD 5 - s/p ORIF left femur fracture NWB LLE at all times. Hinged knee brace at all times, allowed to open to do 0-45 degrees knee ROM with PT/OT. Use walker to assist with ambulation Knee brace to right knee as needed for comfort, when out of bed. continue PT/OT Placement pending. Continue suppressive antibiotics as previously on prior to admission. Coumadin for DVT prophylaxis/treatment. Ice to right knee as needed for pain/swelling. Elevate left lower extremity to prevent pain/swelling. Present on Admission?: Yes Admission and Anticipated Discharge Date Admission Date: May 19, 2020 Subjective Patient resting in bed. Talking on the phone when I arrived. Would like me to get his medication list from our office to give to him to review, so he can show when he takes certain medications. Will fax to nurses station later today. No complaints of pain in left leg today. Has been wearing brace. No toe pain. Physical Exam Physical Exam: Exam of left leg: Dressings clean, dry, intact left foot and left thigh. Incisions clean, dry and intact. No active drainage from either incision. No surround seroma. two very small fracture blisters and left thigh mid incision. Surrounding ecchymosis. thigh supple. Nontender left thigh with light palpation. Left great toe, incision clean, dry, intact. No active drainage. Sutures retained. Toe cleansed with sterile saline wipe. Redressed. Distal pulses 1+, distal sensation normal. Results & Data ([facility]) Vital Signs (Past 12 Hours) Vital Signs Temp Pulse Resp BP Pulse Ox 05/26/20 07:37 36.6 C 110 H 18 114/73 96 05/26/20 00:30 37.0 C 107 H 16 126/53 L 95 Laboratory Results 05/26/20 05/26/20 05/26/20 Range/Units 12:02 09:06 09:06 WBC (4.8-10.8) K/uL RBC (4.7-6.1) M/uL Hgb (14.0-18.0) g/dL Hct (42-52) % MCV (80-100) fL MCH (25-34) pg MCHC (32-36) g/dL RDW Std Deviation (36.4-46.3) fL RDW Coeff of Kiki (11.5-14.5) % Plt Count (130-400) K/uL MPV (7.4-10.4) fL Immature Gran % (Auto) % Neut % (Auto) % Lymph % (Auto) % [place] % (Auto) % Eos % (Auto) % Baso % (Auto) % Neut # (Auto) (1.4-6.5) K/uL Lymph # (Auto) (1.2-3.4) K/uL [place] # (Auto) (0.11-0.59) K/uL Eos # (Auto) (0-0.5) K/uL Baso # (Auto) (0-0.2) K/uL Immature Gran # (Auto) (0.00-0.02) K/uL PT 16.7 H (9.0-12.0) Seconds INR 1.6 H (0.9-1.1) APTT 59.2 H* (21.0-31.0) Seconds PTT Ratio 2.1 POC Glucose 236 H (70-99) mg/dl Total Creatine Kinase 478 H (39-308) U/L 05/26/20 05/26/20 05/25/20 Range/Units 09:06 08:19 20:42 WBC 6.27 (4.8-10.8) K/uL RBC 3.48 L (4.7-6.1) M/uL Hgb 9.1 L (14.0-18.0) g/dL Hct 27.8 L (42-52) % MCV 79.9 L (80-100) fL MCH 26.1 (25-34) pg MCHC 32.7 (32-36) g/dL RDW Std Deviation 48.7 H (36.4-46.3) fL RDW Coeff of Kiki 16.8 H (11.5-14.5) % Plt Count 286 (130-400) K/uL MPV 10.6 H (7.4-10.4) fL Immature Gran % (Auto) 2.9 % Neut % (Auto) 63.7 % Lymph % (Auto) 20.3 % [place] % (Auto) 8.9 % Eos % (Auto) 3.7 % Baso % (Auto) 0.5 % Neut # (Auto) 4.00 (1.4-6.5) K/uL Lymph # (Auto) 1.27 (1.2-3.4) K/uL [place] # (Auto) 0.56 (0.11-0.59) K/uL Eos # (Auto) 0.23 (0-0.5) K/uL Baso # (Auto) 0.03 (0-0.2) K/uL Immature Gran # (Auto) 0.18 H (0.00-0.02) K/uL PT (9.0-12.0) Seconds INR (0.9-1.1) APTT (21.0-31.0) Seconds PTT Ratio POC Glucose 196 H 133 H (70-99) mg/dl Total Creatine Kinase (39-308) U/L 05/25/20 05/25/20 05/25/20 Range/Units 16:29 15:39 15:39 WBC (4.8-10.8) K/uL RBC (4.7-6.1) M/uL Hgb (14.0-18.0) g/dL Hct (42-52) % MCV (80-100) fL MCH (25-34) pg MCHC (32-36) g/dL RDW Std Deviation (36.4-46.3) fL RDW Coeff of Kiki (11.5-14.5) % Plt Count (130-400) K/uL MPV (7.4-10.4) fL Immature Gran % (Auto) % Neut % (Auto) % Lymph % (Auto) % [place] % (Auto) % Eos % (Auto) % Baso % (Auto) % Neut # (Auto) (1.4-6.5) K/uL Lymph # (Auto) (1.2-3.4) K/uL [place] # (Auto) (0.11-0.59) K/uL Eos # (Auto) (0-0.5) K/uL Baso # (Auto) (0-0.2) K/uL Immature Gran # (Auto) (0.00-0.02) K/uL PT 15.2 H (9.0-12.0) Seconds INR 1.5 H (0.9-1.1) APTT 61.4 H* (21.0-31.0) Seconds PTT Ratio 2.2 POC Glucose 73 (70-99) mg/dl Total Creatine Kinase 612 H (39-308) U/L (1) Fracture of distal end of femur Encounter type: initial encounter Fracture morphology: other fracture Fracture type: closed Laterality: left Qualified Code(s): S72.492A - Other fracture of lower end of left femur, initial encounter for closed fracture
[2020-05-26] MEDS: METAXALONE 800 MG TABLET PO SCH (12:42)
[2020-05-26] MEDS: WARFARIN SOD 6 MG TAB PO SCH (15:55)
[2020-05-26] MEDS: ACETAMINOPHEN 325 MG TAB PO PRN (15:55)
[2020-05-26] MEDS: MULTIVITAMIN TAB PO SCH (15:56)
[2020-05-26] MEDS: SENNA 8.6 MG TAB PO SCH (22:03)
[2020-05-26] MEDS: OXYCODONE HCL 20 MG TABCR (OXYCONTIN) PO SCH (22:03)
[2020-05-26] MEDS: BACLOFEN 10 MG TAB PO SCH (22:15)
[2020-05-26] MEDS: AMITRIPTYLINE HCL 25 MG TAB PO SCH (22:15)
[2020-05-26] MEDS: INDAPAMIDE 1.25 MG TAB PO SCH (22:23)
[2020-05-26] MEDS: lisinopriL 40 MG TAB PO SCH (22:28)
[2020-05-26] MEDS: AMLODIPINE BESYLATE 5 MG TAB PO SCH (22:28)
[2020-05-27] MEDS: ACETAMINOPHEN 325 MG TAB PO PRN ×3 (01:25→22:05)
[2020-05-27] MEDS: OXYCODONE HCL IR 5 MG TAB (IMMEDIATE RELEASE) PO PRN ×3 (01:26→23:28)
[2020-05-27] MEDS ORDERED: Nursing to Pharmacy Communication SCH (05:45)
[2020-05-27 06:37] LABS: Partial Thromboplastin Ratio 2.8
[2020-05-27 06:43] LABS: Partial Thromboplastin Time 77.4 Seconds (21.0-31.0)
[2020-05-27 08:00] LABS: INR 1.8 (0.9-1.1); Prothrombin Time 18.1 Seconds (9.0-12.0)
--- NOTE | 2020-05-27 08:42 | Progress Notes ---
DATE: 05/27/2020 The patient is resting comfortably in bed. He reports no significant problems. His right ankle is a little bit sore and he does have a bruise on the plantar aspect of his arch and on the lateral side of his right ankle. He was fitted for a collateral ligament brace on the right knee. He already has a brace at home, but no one is available to get that for him. Same story with his diabetic shoe to get a lift made for that. He was made aware that he would have to pay out of pocket for the right knee brace as it would not be covered by his insurance. In terms of his left knee, he cannot lift the leg, wiggle his residual toes, flex and extend the ankle and has intact capillary refill. His vitals are noted and are within normal limits. His culture grew out Justine from the toe and I have asked infectious diseases to comment on that. It did not grow out Pseudomonas. He remains on heparin drip. Looks like he can head to [facility]. He is good to go from Orthopedic standpoint, we want to see him back next week at 2 weeks postop for wound check and suture removal. He will need to remain nonweightbearing. We will eventually want to increase his knee range of motion.
--- NOTE | 2020-05-27 09:06 | Pain Management Consultation ---
Date of Consultation May 27, 2020 Assessment & Plan (1) Osteomyelitis of toe of left foot: (2) Rhabdomyolysis: (3) CHI (closed head injury): Encounter type: initial encounter Qualified Code(s): S09.90XA - Unspecified injury of head, initial encounter (4) Contusion of face: Encounter type: initial encounter Qualified Code(s): S00.83XA - Contusion of other part of head, initial encounter (5) Fracture of distal end of femur: Encounter type: initial encounter Fracture morphology: other fracture Fracture type: closed Laterality: left Qualified Code(s): S72.492A - Other fracture of lower end of left femur, initial encounter for closed fracture (6) Opiate abuse, continuous: (7) Back pain: Back pain laterality: unspecified Back pain location: back pain in unspecified location Chronicity: unspecified Qualified Code(s): M54.9 - Dorsalgia, unspecified (8) Status post total knee replacement, right: (9) S/P left knee arthroscopy: (10) Chronic pain: Pain is well controlled with the current regimen as follows: Gabapentin 400 mg 3 times daily Skelaxin 800 mg a.m. 1600 mg 12 PM OxyContin 10 mg a.m. 20 mg p.m. Oxycodone 5 mg 4 times daily as needed Amitriptyline 25 mg daily Baclofen 40 mg at bedtime Should pain change or not be controlled, please contact Pain Management and the patient can be revisited. Thank you for the consultation. History of Present Illness Attending Physician: James Perez MD History of Present Illness Mr. Pelaez is a 59 year old male with multiple chronic pain complaints including lumbar disc herniation, cervical myelopathy, knee pains. He has seen multiple pain clinics over the years and currently settled with [facility] that has been prescribing his medications. He is chronically on gabapentin, Skelaxin, OxyContin, oxycodone, amitriptyline, baclofen which does manage his pain fairly well. He did fracture his left hip recently that required an ORIF and also has concurrent osteomyelitis of the left toe that re quired amputation. He is able to ambulate with assistance and a walker. Patient states that his pain is well controlled at this time with the current regimen and does not voice any complaints. Pain Assessment Full Body Front + Back: 1. 2. 3. 4. 5. 6. Allergies Allergy/AdvReac Type Severity Reaction Status Date / Time simvastatin Allergy Unknown MUSCLE Verified 05/19/20 17:18 WEAKNESS,TINGLING haloperidol [From Haldol] AdvReac Unknown Unknown Verified 05/19/20 17:18 Home Medications Home Medications Medication Instructions Recorded Confirmed Type Victoza 3-Toni 1.2 mg SUBCUT QAM 11/03/18 05/19/20 History amlodipine [Norvasc] 10 mg PO HS 11/03/18 05/19/20 History docusate sodium [DOK] 100 mg PO BID 11/03/18 05/19/20 History fexofenadine [Carmen Allergy] 180 mg PO DAILY PRN 11/03/18 05/19/20 History fluticasone propionate [Flonase 1 spray INTRANASAL BID PRN 11/03/18 05/19/20 History Allergy Relief] gabapentin 400 mg PO TID 11/03/18 05/19/20 History guaifenesin [Mucinex] 600 mg PO Q12H PRN 11/03/18 05/19/20 History indapamide 2.5 mg PO HS 11/03/18 05/19/20 History ipratropium bromide 2 spray INTRANASAL QID PRN 11/03/18 05/19/20 History ketoconazole 1 applic TOPICAL WK 11/03/18 05/19/20 History lisinopril 40 mg PO HS 11/03/18 05/19/20 History meloxicam 7.5 mg PO BID 11/03/18 05/19/20 History metaxalone 800 mg PO TID 11/03/18 05/19/20 History metformin 850 mg PO BIDM 11/03/18 05/19/20 History metoprolol tartrate 50 mg PO BID 11/03/18 05/19/20 History multivitamin 1 tab PO QDD 11/03/18 05/19/20 History oxycodone 5 mg PO BID PRN 11/03/18 05/19/20 History pioglitazone [Actos] 30 mg PO QAM 11/03/18 05/19/20 History acetaminophen [Tylenol 8 Hour] 650 mg PO DIRECTED PRN 11/29/19 05/19/20 History oxycodone [OxyContin] 20 mg PO BID PRN 12/04/19 05/19/20 History rosuvastatin [Crestor] 20 mg PO DAILY 12/04/19 05/19/20 History baclofen 40 mg PO HS #28 tab 12/08/19 05/19/20 Rx [id number] 1 tab PO QAM #14 tab 12/08/19 05/19/20 Rx [Caltrate 600-D Plus Minerals] cephalexin 500 mg capsule 500 mg PO BID #60 cap 01/23/20 05/19/20 Rx dextroamphetamine-amphetamine ER 20 mg PO DAILY 01/23/20 05/19/20 History 20 mg 24hr capsule,extend release amitriptyline 25 mg PO HS 05/19/20 05/19/20 History aspirin [Aspir-81] 81 mg PO DAILY 05/19/20 05/19/20 History fluoxetine 60 mg PO QAM 05/19/20 05/19/20 History omeprazole 20 mg PO DAILYBB 05/19/20 05/19/20 History Patient History Medical History RUDY (acute kidney injury) (Inactive) Anemia Benzodiazepine abuse Chronic pain (Chronic) Deep vein thrombosis Delirium Diabetic foot ulcer associated with type 2 diabetes mellitus Diverticulosis (Chronic) DM type 2 (diabetes mellitus, type 2) (Chronic) Dyslipidemia (Chronic) Encephalopathy Femur fracture (Chronic) "S/P repair" History of septic arthritis (Chronic) Hypertension (Chronic) Mood disorder Opiate abuse, continuous NARINDER on CPAP (Chronic) Psychosis Raynaud disease (Chronic) Rhabdomyolysis CPK on admission elevated 1169 Received IVF CPK 859 Surgical History H/O hand surgery (Chronic) History of carpal tunnel surgery (Chronic) S/P left knee arthroscopy (Chronic) Status post total knee replacement, right (Chronic) Family History Other Family history non-contributory Social History Smoking Status: Former smoker Second Hand Exposure: No; Hx Alcohol Use: Yes Alcohol type: beer and hard liquor Hx Substance Use: Yes Preferred Language: Portuguese Communication Ability: Effective Physical Trainer Required: No Current Living Situation: Alone Feels Safe at Home: Yes Physical Exam Physical Exam: GENERAL: This is a 59 year old male. Does not appear in any acute distress. He is intermittently drowsy this morning during our discussion. HEAD/FACE: Normocephalic and atraumatic. EYES: No drainage or conjunctival injection. ENT: Nose without bleeding or discharge. Oral mucosa moist. CHEST/AXILLA: Chest movement symmetrical. No deformities noted. BACK: Moves without difficulty SKIN: [place], warm and dry. No rash noted. MS/EXTREMITY: Left shoe in place. left knee brace in place. Left hip incision appears to be healing well. NEURO: Alert and appears oriented. Speech is fluent. Cranial Nerves are grossly intact. PSYCH: Alert, pleasant, affect is calm
[2020-05-27] MEDS: INSULIN ASPART 100 UNITS/ML 3 ML PEN SC SCH ×4 (09:24→21:54)
[2020-05-27] MEDS: OXYCODONE HCL 10 MG TABCR (OXYCONTIN) PO SCH (09:28)
[2020-05-27] MEDS: FERROUS GLUCONATE 324 MG TAB PO SCH ×2 (09:29→18:03)
[2020-05-27] MEDS: cephALEXin 500 MG CAP PO SCH ×2 (09:29→22:17)
[2020-05-27] MEDS: ASCORBIC ACID 500 MG TAB PO SCH ×2 (09:29→18:02)
[2020-05-27] MEDS: CALCIUM 600MG + VIT D 400 IU TAB PO SCH (09:35)
[2020-05-27] MEDS: PANTOprazole 40 MG TAB PO SCH (09:36)
[2020-05-27] MEDS: ASPIRIN 81 MG ECTAB PO SCH (09:36)
[2020-05-27] MEDS: GABAPENTIN 400 MG CAP PO SCH ×3 (09:37→16:04)
[2020-05-27] MEDS: METOPROLOL TARTRATE 50 MG TAB PO SCH ×2 (09:41→22:07)
[2020-05-27] MEDS: DOCUSATE SODIUM 100 MG CAP PO SCH ×2 (09:42→22:06)
--- NOTE | 2020-05-27 12:47 | Hospitalist Progress Note ---
Date of Service May 27, 2020 Assessment & Plan (1) Encephalopathy: ACUTE ENCEPHALOPATHY on this admission -as per ED notes 05/19/2020 "This is a 59-year-old male brought in from home via EMS due to altered mental status. Patient has home health that comes and visits him on Tuesday, Tuesday, and Tuesday,. Patient last seen in his usual state of health on Tuesday. The home health nurse did come for her visit this morning, however he did not answer the door or let her in. After some time and for an unknown reason EMS was contacted many hours later. EMS found the patient in his house to be altered with evidence of facial trauma. Patient seemed confused, but was awake and could follow commands. They did check blood sugar prehospital which was 131. Patient cannot provide much in the way of details or history. Patient does have a complicated past medical history including diabetes, psychosis, and substance abuse." -CT head showed no hemorrhage, mass effect, or evidence of acute territorial ischemia -polypharmacy is considered as a cause versus alternative reason Seasonal Affective disorder Anxiety, delusions -patient reports that home dose Amitriptyline and prozac is primarily for pain, currently on home doses -currently on home dose Amitriptyline 25 mg qhs -05/22/2020 evening patient also called 911 because he was concerned that his keys in front of him were not his usual keys and he was concerned that somehow his daughter Raeann or patient friend Osman could have have had inappropriate access to his house and his goal was to call for police to do a drive by to verify that no one was in his house. he was also concerned that his daughter Raeann was involved in a radical group trying to cause him to be persecuted. At the same time, he allows for medical doctor to call his daughter Raeann to update her. Raeann on the telephone also reporting that his father had episodes of delusional thoughts and accusations made in the past. I have requested behavioral health consult to evaluate these delusions and paranoia -psychiatry service stopped fluoxetine and Adderall. they placed prn olanzapine if severe agitation -his daughter visited on 05/23/2020 and we discussed with patient about his health (2) Contusion of face: -from fall injury -05/21/2020 patient clarifies that he had fallen from bed (3) Fracture of distal end of femur: Deep Vein Thrombosis of left lower extremity on admission (s/p Insertion Of Vena Cava Filter on this hospital admission, anticoagulation by anticoagulation treatment) Fracture of distal end of femur (s/p Left Distal Femur Fracture Open Reduction Internal Fixation on this hospital admission) Left Great toe osteomyelitis s/p (Left Great Toe Amputation on this hospital admission) -admission imaging findings were significant for acute comminuted mildly displaced and angulated fracture of the distal femoral metaphysis with fracture extension into the superior aspect of the trochlear groove; Acute nondisplaced fracture of the medial patella; Moderate lipohemarthrosis with posttraumatic subcutaneous edema on CT of the Lower extremity AND deep venous thrombosis identified in the calf within the posterior tibial and peroneal veins on ultrasound of the lower left extremity -patient was initially placed on heparin drip IV as per discussion with Dr. Rosa -on 05/21/2020, patient had Insertion Of Vena Cava Filter via Right Internal Jugular Approach by Dr. Fleming and then subsequently on the same day operated on by orthopedics Dr. Rodriguez for Left Distal Femur Fracture Open Reduction Internal Fixation and Left Great Toe Amputation(Left) -after discussing with Dr. Rodriguez and the patient on 05/23/2020, systemic anticoagulation resumed on night of 05/22/2020 and coumadin 5 mg given, plan is to continue IV heparin and coumadin 5 mg daily, and target INR 2 to3 before stopping heparin, monitor the Hgb closely -PT/OT evaluations; anticipate that case management will need patient to be arranged to go to a facility physical therapy center after hospital stay -the Cefazolin IV antibiotics and Zerbaxa (ceftolozane/tazobactam) IV was stopped on 05/23/2020 and then transitioned to oral Cephalexin (Infectious disease consult note from Dr. Rashaad Quick on 05/22/2020 recommending to stop Cefazolin IV and Zerbaxa (ceftolozane/tazobactam) IV and instead place on Cephalexin chronically and that patient should have follow up with infectiouse disease Dr. Conley in [facility] infectiouse disease clinic after discharge) -narcotic pain medications adjusted on 05/24/2020, continue other pain medications of gabapentin, balcofen, Skelaxin (metaxalone); increase night time dose of oxycontin pain medication -05/26/2020: patient is not pleased with current pain medication scheduling, he wishes to sign release of records from previous orthopedic pain management. he agrees to be seen by inpatient pain management to assess for safety of pain medications with his complicated pain medication regimen. he is not in acute distress on my exam. INR is 1.6, will increase previous warfarin from 5 mg to 6 mg daily. continue heparin IV -05/27/2020: Patient is pleased to see pain management consultation on 05/27/2020. He is standing up and eating the lunch. The INR is 1.8 and patient remains on IV heparin drip Rhabdomyolysis -admission CPK admission 1169 -improved with IV fluids, CK stabilizing around 500 recently as of 05/22/2020, CK elevated above 700 on 05/25/2020 and he received additional IV fluids with CK trending down below 500. avoid crestor at this time -trend the creatinine kinase Acute Kidney Injury -Creatinine on admission 1.49, creatinine improved with IV fluids on this admission NARINDER on CPAP: -CPAP qhs DM type 2 (diabetes mellitus, type 2): -Most recent Hba1c 6.5 on 04/19 -Continue to hold outpatient DM med -Continue Lantus and insulin sliding scale while inpatient Hypertension: -Continue Amlodipine and metoprolol, lisinopril, indapamide Full code as per daughter, Ms. Raeann Jack (based in [place]). [phone]. Admission and Anticipated Discharge Date Admission Date: May 19, 2020 Subjective Patient is pleased to see pain management consultation on 05/27/2020. He is standing up and eating the lunch. The INR is 1.8 and patient remains on IV heparin drip. no acute distress. he is pleasant and cooperative on exam. no chest pain. no abdomen pain. no nausea. no vomiting. no dizziness. no lightheadedness ,no fever Review of Systems Review of Systems: All systems reviewed & are unremarkable except as noted in Subjective Physical Exam Constitutional: comfortable Eyes: PERRL, conjunctivae normal, anicteric sclerae EOM intact bilaterally ENMT: Nose: + facial exam abnormality (facial ecchymosis around the eyes) Neck: trachea midline, no thyromegaly normal visual inspection Respiratory: normal respiratory effort, lungs clear to auscultation Cardiovascular: Rate/Rhythm: regular rate Gastrointestinal (Abdomen): normal bowel sounds, soft, nontender, no hepatosplenomegaly Musculoskeletal: Head/Neck/Chest: normocephalic and head atraumatic Neurologic: PERRL, EOMI, accommodation nl, no face palsy, no dysarthria Psychiatric: A+Ox3, euthymic affect Results & Data Results & Data ([facility]) Vital Signs (Past 12 Hours) Vital Signs Temp Pulse Resp BP Pulse Ox 05/27/20 09:39 98 H 148/73 H 05/27/20 07:22 36.8 C 82 18 148/72 H 97 (1) Contusion of face Encounter type: initial encounter Qualified Code(s): S00.83XA - Contusion of other part of head, initial encounter (2) Fracture of distal end of femur Encounter type: initial encounter Fracture morphology: other fracture Fra cture type: closed Laterality: left Qualified Code(s): S72.492A - Other frac ture of lower end of left femur, initial encounter for closed fracture
[2020-05-27] MEDS: METAXALONE 800 MG TABLET PO SCH (12:59)
[2020-05-27] MEDS ORDERED: SODIUM CHLORIDE 0.9% 500 ML IV SCH (13:00)
[2020-05-27 13:28] LABS: Partial Thromboplastin Ratio 2.2
[2020-05-27 13:30] LABS: Partial Thromboplastin Time 61.8 Seconds (21.0-31.0)
[2020-05-27] MEDS: HEPARIN SODIUM/DEXTROSE 25,000 UNITS/500 ML BAG IV SCH ×3 (15:54→22:47)
[2020-05-27] MEDS: MULTIVITAMIN TAB PO SCH (16:03)
[2020-05-27] MEDS: WARFARIN SOD 6 MG TAB PO SCH (16:03)
[2020-05-27] MEDS: OXYCODONE HCL 20 MG TABCR (OXYCONTIN) PO SCH (22:05)
[2020-05-27] MEDS: AMITRIPTYLINE HCL 25 MG TAB PO SCH (22:06)
[2020-05-27] MEDS: BACLOFEN 10 MG TAB PO SCH (22:06)
[2020-05-27] MEDS: INDAPAMIDE 1.25 MG TAB PO SCH (22:06)
[2020-05-27] MEDS: SENNA 8.6 MG TAB PO SCH (22:07)
[2020-05-27] MEDS: AMLODIPINE BESYLATE 5 MG TAB PO SCH (22:17)
[2020-05-27] MEDS: lisinopriL 40 MG TAB PO SCH (22:17)
[2020-05-28] MEDS: OXYCODONE HCL IR 5 MG TAB (IMMEDIATE RELEASE) PO PRN ×2 (05:35→15:21)
[2020-05-28] MEDS: ACETAMINOPHEN 325 MG TAB PO PRN ×2 (05:35→15:21)
[2020-05-28 06:55] LABS: Hematocrit (blood only) 28.5 % (42-52); Hemoglobin 9.1 g/dL (14.0-18.0); Mean Corpuscular Hemoglobin 25.8 pg (25-34); Mean Corpuscular Hgb Conc 31.9 g/dL (32-36); Mean Corpuscular Volume 80.7 fL (80-100); Mean Platelet Volume 10.1 fL (7.4-10.4); Nucleated RBC # (auto) 0.02 K/uL (0-0); Nucleated RBC % (auto) 0.3 %; Platelet Count 308 K/uL (130-400); RDW Coefficient of Variation 17.3 % (11.5-14.5); RDW Standard Deviation 50.3 fL (36.4-46.3); Red Blood Count 3.53 M/uL (4.7-6.1); White Blood Count 7.64 K/uL (4.8-10.8)
[2020-05-28 07:13] LABS: Basophils # (auto) 0.04 K/uL (0-0.2); Basophils % (auto) 0.5 %; Eosinophils # (auto) 0.27 K/uL (0-0.5); Eosinophils % (auto) 3.5 %; Immature Granulocytes # (auto) 0.47 K/uL (0.00-0.02); Immature Granulocytes % (auto) 6.2 %; Lymphocytes # (auto) 2.21 K/uL (1.2-3.4); Lymphocytes % (auto) 28.9 %; Monocytes # (auto) 0.76 K/uL (0.11-0.59); Monocytes % (auto) 9.9 %; Neutrophils # (auto) 3.89 K/uL (1.4-6.5); Ovalocytes 1+
[2020-05-28 07:14] LABS: INR 1.9 (0.9-1.1); Prothrombin Time 18.9 Seconds (9.0-12.0)
[2020-05-28 07:21] LABS: BUN Creatinine Ratio 21.1 (10-20); Creatinine Clr Calc Pharmacy 61.2 ml/min; Est GFR (African American) 67.3; Est GFR (Non-African American) 58.1; Potassium 4.9 mmol/L (3.5-5.1)
[2020-05-28] MEDS: INSULIN ASPART 100 UNITS/ML 3 ML PEN SC SCH ×4 (09:49→21:31)
[2020-05-28] MEDS: FERROUS GLUCONATE 324 MG TAB PO SCH ×2 (09:50→18:38)
[2020-05-28] MEDS: CALCIUM 600MG + VIT D 400 IU TAB PO SCH (09:50)
[2020-05-28] MEDS: ASCORBIC ACID 500 MG TAB PO SCH ×2 (09:51→18:38)
[2020-05-28] MEDS: ASPIRIN 81 MG ECTAB PO SCH (09:51)
[2020-05-28] MEDS: cephALEXin 500 MG CAP PO SCH ×2 (09:51→21:23)
[2020-05-28] MEDS: PANTOprazole 40 MG TAB PO SCH (09:51)
[2020-05-28] MEDS: GABAPENTIN 400 MG CAP PO SCH ×3 (09:52→16:22)
--- NOTE | 2020-05-28 09:53 | Orthopedic Progress Note ---
Date of Service May 28, 2020 Assessment & Plan (1) Osteomyelitis of toe of left foot: POD 6 -s/p left great toe partial amputation. Continue dressing to left foot. Maintain NWB LLE due to left femur fracture Post op shoe on left foot when out of bed to protect left foot. Allowed for ROM left ankle/toes as tolerated. Change dressings PRN (2) Fracture of distal end of femur: POD 6 - s/p ORIF left femur fracture NWB LLE at all times. Hinged knee brace at all times, allowed to open to do 0-45 degrees knee ROM with PT/OT. Use walker to assist with ambulation Knee brace to right knee as needed for comfort, when out of bed. continue PT/OT Placement pending. Continue suppressive antibiotics as previously on prior to admission. Coumadin for DVT prophylaxis/treatment. Ice to right knee as needed for pain/swelling. Elevate left lower extremity to prevent pain/swelling. Change dressing PRN Ok for discharge from ortho standpoint when medically stable. Admission and Anticipated Discharge Date Admission Date: May 19, 2020 Subjective doing well, no pain, states that his toe hurt yesterday, but better today. appetite normal. States home meds aren't correct States due to the high pressure and no clouds in the araceli he's going to predict getting a tension headache and back pain later day. Physical Exam Physical Exam: Left lower extremity dressings in place. Brace and post op shoe intact. Strength LLE 5/5. Right leg with no edema. Pulses 1+ Results & Data ([facility]) Vital Signs (Past 12 Hours) Vital Signs Temp Pulse Resp BP Pulse Ox 05/28/20 07:29 36.5 C 77 17 144/83 H 95 05/28/20 00:14 37.0 C 82 14 109/64 96 Laboratory Results 05/28/20 05/28/20 05/28/20 Range/Units 08:16 06:22 06:22 WBC (4.8-10.8) K/uL RBC (4.7-6.1) M/uL Hgb (14.0-18.0) g/dL Hct (42-52) % MCV (80-100) fL MCH (25-34) pg MCHC (32-36) g/dL RDW Std Deviation (36.4-46.3) fL RDW Coeff of Kiki (11.5-14.5) % Plt Count (130-400) K/uL MPV (7.4-10.4) fL Immature Gran % (Auto) % Neut % (Auto) % Lymph % (Auto) % [place] % (Auto) % Eos % (Auto) % Baso % (Auto) % Neut # (Auto) (1.4-6.5) K/uL Lymph # (Auto) (1.2-3.4) K/uL [place] # (Auto) (0.11-0.59) K/uL Eos # (Auto) (0-0.5) K/uL Baso # (Auto) (0-0.2) K/uL Immature Gran # (Auto) (0.00-0.02) K/uL Absolute Nucleated RBC (0-0) K/uL Nucleated RBC % (auto) % Ovalocytes PT 18.9 H (9.0-12.0) Seconds INR 1.9 H (0.9-1.1) APTT 57.0 H* (21.0-31.0) Seconds PTT Ratio Pending Sodium 138 (136-145) mmol/L Potassium 4.9 (3.5-5.1) mmol/L Chloride 105 (98-107) mmol/L Carbon Dioxide 28 (21-32) mmol/L Anion Gap 5.0 (3-11) BUN 28 H (7-18) mg/dl Creatinine 1.33 (0.6-1.4) mg/dl Est Cr Clr Drug Dosing 61.2 ml/min Est GFR ( Amer) 67.3 Est GFR (Non-Af Amer) 58.1 BUN/Creatinine Ratio 21.1 H (10-20) Glucose 168 H (70-99) mg/dl POC Glucose 156 H (70-99) mg/dl Calcium 9.0 (8.5-10.1) mg/dl Total Creatine Kinase 163 (39-308) U/L 05/28/20 05/27/20 05/27/20 Range/Units 06:22 22:20 21:13 WBC 7.64 (4.8-10.8) K/uL RBC 3.53 L (4.7-6.1) M/uL Hgb 9.1 L (14.0-18.0) g/dL Hct 28.5 L (42-52) % MCV 80.7 (80-100) fL MCH 25.8 (25-34) pg MCHC 31.9 L (32-36) g/dL RDW Std Deviation 50.3 H (36.4-46.3) fL RDW Coeff of Kiki 17.3 H (11.5-14.5) % Plt Count 308 (130-400) K/uL MPV 10.1 (7.4-10.4) fL Immature Gran % (Auto) 6.2 % Neut % (Auto) 51.0 % Lymph % (Auto) 28.9 % [place] % (Auto) 9.9 % Eos % (Auto) 3.5 % Baso % (Auto) 0.5 % Neut # (Auto) 3.89 (1.4-6.5) K/uL Lymph # (Auto) 2.21 (1.2-3.4) K/uL [place] # (Auto) 0.76 H (0.11-0.59) K/uL Eos # (Auto) 0.27 (0-0.5) K/uL Baso # (Auto) 0.04 (0-0.2) K/uL Immature Gran # (Auto) 0.47 H (0.00-0.02) K/uL Absolute Nucleated RBC 0.02 H (0-0) K/uL Nucleated RBC % (auto) 0.3 % Ovalocytes 1+ PT (9.0-12.0) Seconds INR (0.9-1.1) APTT (21.0-31.0) Seconds PTT Ratio Sodium (136-145) mmol/L Potassium (3.5-5.1) mmol/L Chloride (98-107) mmol/L Carbon Dioxide (21-32) mmol/L Anion Gap (3-11) BUN (7-18) mg/dl Creatinine (0.6-1.4) mg/dl Est Cr Clr Drug Dosing ml/min Est GFR ( Amer) Est GFR (Non-Af Amer) BUN/Creatinine Ratio (10-20) Glucose (70-99) mg/dl POC Glucose 144 H 171 H (70-99) mg/dl Calcium (8.5-10.1) mg/dl Total Creatine Kinase (39-308) U/L 07/28/20 07/28/20 07/28/20 Range/Units 17:18 12:50 12:02 WBC (4.8-10.8) K/uL RBC (4.7-6.1) M/uL Hgb (14.0-18.0) g/dL Hct (42-52) % MCV (80-100) fL MCH (25-34) pg MCHC (32-36) g/dL RDW Std Deviation (36.4-46.3) fL RDW Coeff of Kiki (11.5-14.5) % Plt Count (130-400) K/uL MPV (7.4-10.4) fL Immature Gran % (Auto) % Neut % (Auto) % Lymph % (Auto) % [place] % (Auto) % Eos % (Auto) % Baso % (Auto) % Neut # (Auto) (1.4-6.5) K/uL Lymph # (Auto) (1.2-3.4) K/uL [place] # (Auto) (0.11-0.59) K/uL Eos # (Auto) (0-0.5) K/uL Baso # (Auto) (0-0.2) K/uL Immature Gran # (Auto) (0.00-0.02) K/uL Absolute Nucleated RBC (0-0) K/uL Nucleated RBC % (auto) % Ovalocytes PT (9.0-12.0) Seconds INR (0.9-1.1) APTT 61.8 H* (21.0-31.0) Seconds PTT Ratio 2.2 Sodium (136-145) mmol/L Potassium (3.5-5.1) mmol/L Chloride (98-107) mmol/L Carbon Dioxide (21-32) mmol/L Anion Gap (3-11) BUN (7-18) mg/dl Creatinine (0.6-1.4) mg/dl Est Cr Clr Drug Dosing ml/min Est GFR ( Amer) Est GFR (Non-Af Amer) BUN/Creatinine Ratio (10-20) Glucose (70-99) mg/dl POC Glucose 158 H 164 H (70-99) mg/dl Calcium (8.5-10.1) mg/dl Total Creatine Kinase (39-308) U/L (1) Fracture of distal end of femur Encounter type: initial encounter Fracture morphology: other fracture Fracture type: closed Laterality: left Qualified Code(s): S72.492A - Other fracture of lower end of left femur, initial encounter for closed fracture
[2020-05-28] MEDS: OXYCODONE HCL 10 MG TABCR (OXYCONTIN) PO SCH (09:54)
[2020-05-28] MEDS: DOCUSATE SODIUM 100 MG CAP PO SCH ×2 (09:54→21:27)
[2020-05-28] MEDS: METOPROLOL TARTRATE 50 MG TAB PO SCH ×2 (09:55→21:23)
[2020-05-28] MEDS: METAXALONE 800 MG TABLET PO SCH (13:38)
[2020-05-28] MEDS: WARFARIN SOD 6 MG TAB PO SCH (16:21)
[2020-05-28] MEDS: MULTIVITAMIN TAB PO SCH (16:22)
--- NOTE | 2020-05-28 19:05 | Hospitalist Progress Note ---
Date of Service May 28, 2020 Assessment & Plan (1) Encephalopathy: ACUTE ENCEPHALOPATHY on this admission -as per ED notes 05/19/2020 "This is a 59-year-old male brought in from home via EMS due to altered mental status. Patient has home health that comes and visits him on Tuesday, Tuesday, and Tuesday,. Patient last seen in his usual state of health on Tuesday. The home health nurse did come for her visit this morning, however he did not answer the door or let her in. After some time and for an unknown reason EMS was contacted many hours later. EMS found the patient in his house to be altered with evidence of facial trauma. Patient seemed confused, but was awake and could follow commands. They did check blood sugar prehospital which was 131. Patient cannot provide much in the way of details or history. Patient does have a complicated past medical history including diabetes, psychosis, and substance abuse." -CT head showed no hemorrhage, mass effect, or evidence of acute territorial ischemia -polypharmacy is considered as a cause versus alternative reason Seasonal Affective disorder Anxiety, delusions -patient reports that home dose Amitriptyline and prozac is primarily for pain, currently on home doses -currently on home dose Amitriptyline 25 mg qhs -05/22/2020 evening patient also called 911 because he was concerned that his keys in front of him were not his usual keys and he was concerned that somehow his daughter Raeann or patient friend Osman could have have had inappropriate access to his house and his goal was to call for police to do a drive by to verify that no one was in his house. he was also concerned that his daughter Raeann was involved in a radical group trying to cause him to be persecuted. At the same time, he allows for medical doctor to call his daughter Raeann to update her. Raeann on the telephone also reporting that his father had episodes of delusional thoughts and accusations made in the past. I have requested behavioral health consult to evaluate these delusions and paranoia -psychiatry service stopped fluoxetine and Adderall. they placed prn olanzapine if severe agitation -his daughter visited on 05/23/2020 and we discussed with patient about his health (2) Contusion of face: -from fall injury -05/21/2020 patient clarifies that he had fallen from bed (3) Fracture of distal end of femur: Deep Vein Thrombosis of left lower extremity on admission (s/p Insertion Of Vena Cava Filter on this hospital admission, anticoagulation by anticoagulation treatment) Fracture of distal end of femur (s/p Left Distal Femur Fracture Open Reduction Internal Fixation on this hospital admission) Left Great toe osteomyelitis s/p (Left Great Toe Amputation on this hospital admission) -admission imaging findings were significant for acute comminuted mildly displaced and angulated fracture of the distal femoral metaphysis with fracture extension into the superior aspect of the trochlear groove; Acute nondisplaced fracture of the medial patella; Moderate lipohemarthrosis with posttraumatic subcutaneous edema on CT of the Lower extremity AND deep venous thrombosis identified in the calf within the posterior tibial and peroneal veins on ultrasound of the lower left extremity -patient was initially placed on heparin drip IV as per discussion with Dr. Rosa -on 05/21/2020, patient had Insertion Of Vena Cava Filter via Right Internal Jugular Approach by Dr. Fleming and then subsequently on the same day operated on by orthopedics Dr. Rodriguez for Left Distal Femur Fracture Open Reduction Internal Fixation and Left Great Toe Amputation(Left) -after discussing with Dr. Rodriguez and the patient on 05/23/2020, systemic anticoagulation resumed on night of 05/22/2020 and coumadin 5 mg given, plan is to continue IV heparin and coumadin 5 mg daily, and target INR 2 to3 before stopping heparin, monitor the Hgb closely -PT/OT evaluations; anticipate that case management will need patient to be arranged to go to a facility physical therapy center after hospital stay -the Cefazolin IV antibiotics and Zerbaxa (ceftolozane/tazobactam) IV was stopped on 05/23/2020 and then transitioned to oral Cephalexin (Infectious disease consult note from Dr. Rashaad Quick on 05/22/2020 recommending to stop Cefazolin IV and Zerbaxa (ceftolozane/tazobactam) IV and instead place on Cephalexin chronically and that patient should have follow up with infectiouse disease Dr. Conley in [facility] infectiouse disease clinic after discharge) -narcotic pain medications adjusted on 05/24/2020, continue other pain medications of gabapentin, balcofen, Skelaxin (metaxalone); increase night time dose of oxycontin pain medication -05/26/2020: patient is not pleased with current pain medication scheduling, he wishes to sign release of records from previous orthopedic pain management. he agrees to be seen by inpatient pain management to assess for safety of pain medications with his complicated pain medication regimen. he is not in acute distress on my exam. INR is 1.6, will increase previous warfarin from 5 mg to 6 mg daily. continue heparin IV -05/27/2020: Patient is pleased to see pain management consultation on 05/27/2020. He is standing up and eating the lunch. The INR is 1.8 and patient remains on IV heparin drip Rhabdomyolysis -admission CPK admission 1169 -improved with IV fluids, CK stabilizing around 500 recently as of 05/22/2020, CK elevated above 700 on 05/25/2020 and he received additional IV fluids with CK trending down below 500. avoid crestor at this time -trend the creatinine kinase Acute Kidney Injury -Creatinine on admission 1.49, creatinine improved with IV fluids on this admission NARINDER on CPAP: -CPAP qhs DM type 2 (diabetes mellitus, type 2): -Most recent Hba1c 6.5 on 04/19 -Continue to hold outpatient DM med -Continue Lantus and insulin sliding scale while inpatient Hypertension: -Continue Amlodipine and metoprolol, lisinopril, indapamide Full code as per daughter, Ms. Raeann Jack (based in [place]). [phone]. Waiting for placement to rehab Admission and Anticipated Discharge Date Admission Date: May 19, 2020 Subjective Pt was seen and examined Sitting in chair with no distress Pt said that he feels fine waiting for placement to rehab Spoke to daughter today and provided with update Denies any chest pain, palpitation, dizziness and SOB Physical Exam Physical Exam: General- No acute distress Head- atraumatic Eyes- PERRL, EOMI, ENT- oropharynx clear Neck- supple, no JVD Lungs- clear to auscultation Heart- regular rhythm; no murmur Abdomen- normal bowel sounds, soft, nontender Extremities- no calf tenderness, +dressing in left foot Neuro- alert, oriented x 3; PERRL, EOMI; no facial palsy; no dysarthria Skin- warm & dry Results & Data Results & Data ([facility]) Vital Signs (Past 12 Hours) Vital Signs Temp Pulse Resp BP BP Pulse Ox 05/28/20 15:37 36.7 C 80 18 120/74 93 05/28/20 09:55 96 H 126/74 05/28/20 07:29 36.5 C 77 17 144/83 H 95 (1) Fracture of distal end of femur Encounter type: initial encounter Fracture morphology: other fracture Fracture type: closed Laterality: left Qualified Code(s): S72.492A - Other fracture of lower end of left femur, initial encounter for closed fracture (2) Contusion of face Encounter type: initial encounter Qualified Code(s): S00.83XA - Contusion of other part of head, initial encounter
[2020-05-28] MEDS: AMLODIPINE BESYLATE 5 MG TAB PO SCH (21:21)
[2020-05-28] MEDS: AMITRIPTYLINE HCL 25 MG TAB PO SCH (21:22)
[2020-05-28] MEDS: BACLOFEN 10 MG TAB PO SCH (21:22)
[2020-05-28] MEDS: lisinopriL 40 MG TAB PO SCH (21:23)
[2020-05-28] MEDS: INDAPAMIDE 1.25 MG TAB PO SCH (21:24)
[2020-05-28] MEDS: SENNA 8.6 MG TAB PO SCH (21:24)
[2020-05-28] MEDS: OXYCODONE HCL 20 MG TABCR (OXYCONTIN) PO SCH (21:27)
[2020-05-28] MEDS: HEPARIN SODIUM/DEXTROSE 25,000 UNITS/500 ML BAG IV SCH (23:05)
[2020-05-29 07:37] LABS: Partial Thromboplastin Ratio 2.5
[2020-05-29 07:44] LABS: Partial Thromboplastin Time 70.2 Seconds (21.0-31.0)
[2020-05-29] MEDS: HEPARIN SODIUM/DEXTROSE 25,000 UNITS/500 ML BAG IV SCH ×2 (08:01→08:02)
[2020-05-29 08:42] LABS: INR 1.8 (0.9-1.1)
[2020-05-29] MEDS ORDERED: FLUOXETINE HCL 20 MG CAP PO SCH (09:00)
[2020-05-29] MEDS: DOCUSATE SODIUM 100 MG CAP PO SCH (09:36)
[2020-05-29] MEDS: FERROUS GLUCONATE 324 MG TAB PO SCH (09:36)
[2020-05-29] MEDS: METAXALONE 800 MG TABLET PO SCH ×2 (09:36→12:42)
[2020-05-29] MEDS: CALCIUM 600MG + VIT D 400 IU TAB PO SCH (09:37)
[2020-05-29] MEDS: ASPIRIN 81 MG ECTAB PO SCH (09:37)
[2020-05-29] MEDS: ASCORBIC ACID 500 MG TAB PO SCH (09:37)
[2020-05-29] MEDS: GABAPENTIN 400 MG CAP PO SCH ×2 (09:38→12:42)
[2020-05-29] MEDS: PANTOprazole 40 MG TAB PO SCH (09:38)
[2020-05-29] MEDS: cephALEXin 500 MG CAP PO SCH (09:38)
[2020-05-29] MEDS: METOPROLOL TARTRATE 50 MG TAB PO SCH (09:42)
[2020-05-29] MEDS: INSULIN ASPART 100 UNITS/ML 3 ML PEN SC SCH ×2 (09:44→12:46)
[2020-05-29] MEDS: KETOCONAZOLE 2% SHAMPOO 120 ML BTL EXT SCH (09:45)
[2020-05-29] MEDS: OXYCODONE HCL 10 MG TABCR (OXYCONTIN) PO SCH (09:55)
[2020-05-29] MEDS ORDERED: ENOXAPARIN 100 MG/1ML SYR SQ SCH (12:00)
[2020-05-29] MEDS: OXYCODONE HCL IR 5 MG TAB (IMMEDIATE RELEASE) PO PRN (13:43)
[2020-05-29] MEDS: ACETAMINOPHEN 325 MG TAB PO PRN (13:45)
--- NOTE | 2020-05-29 15:20 | Hospitalist Progress Note ---
Date of Service May 29, 2020 Assessment & Plan (1) Encephalopathy: ACUTE ENCEPHALOPATHY on this admission -as per ED notes 05/19/2020 "This is a 59-year-old male brought in from home via EMS due to altered mental status. Patient has home health that comes and visits him on Tuesday, Tuesday, and Tuesday,. Patient last seen in his usual state of health on Tuesday. The home health nurse did come for her visit this morning, however he did not answer the door or let her in. After some time and for an unknown reason EMS was contacted many hours later. EMS found the patient in his house to be altered with evidence of facial trauma. Patient seemed confused, but was awake and could follow commands. They did check blood sugar prehospital which was 131. Patient cannot provide much in the way of details or history. Patient does have a complicated past medical history including diabetes, psychosis, and substance abuse." -CT head showed no hemorrhage, mass effect, or evidence of acute territorial ischemia -polypharmacy is considered as a cause versus alternative reason Seasonal Affective disorder Anxiety/delusions Chronic pain syndrome -patient reports that home dose Amitriptyline and prozac is primarily for pain, currently on home doses -currently on home dose Amitriptyline 25 mg qhs -05/22/2020 evening patient also called 911 because he was concerned that his keys in front of him were not his usual keys and he was concerned that somehow his daughter Raeann or patient friend Osman could have have had inappropriate access to his house and his goal was to call for police to do a drive by to verify that no one was in his house. he was also concerned that his daughter Raeann was involved in a radical group trying to cause him to be persecuted. At the same time, he allows for medical doctor to call his daughter Raeann to update her. Raeann on the telephone also reporting that his father had episodes of delusional thoughts and accusations made in the past. I have requested behavioral health consult to evaluate these delusions and paranoia -psychiatry service stopped fluoxetine and Adderall. they placed prn olanzapine if severe agitation -his daughter visited on 05/23/2020 and we discussed with patient about his health -Fluoxetine resumed since patient mental status is back to baseline Continue to hold the adderall (2) Contusion of face: from fall injury CT head showed no intracranial abnormality Stable (3) Fracture of distal end of femur: S/P Fall Pt does not recall the event. Home nurse found him on the floor Left Knee Xray showed distal femoral fracture as above with associated joint effusion and soft tissue edema. CT cervical showed no evidence of fracture or subluxation involving the cervical spine. Face CT showed no evidence of facial bone fracture. CT LLE showed acute comminuted mildly displaced and angulated fracture of the distal femoral metaphysis with fracture extension into the superior aspect of the trochlear groove. Acute nondisplaced fracture of the medial patella. Moderate lipohemarthrosis with posttraumatic subcutaneous edema. Ortho on board s/p Left Distal Femur Fracture Open Reduction Internal Fixation performed by Dr. Rodriguez on 05/21 Continue pain control Continue PT/OT Follow up with Dr. Rodriguez in about a week for staple removal. Non weight bearing LLE at all times; use walker to assist with ambulation. Keep brace on left knee at all times. May unlock brace if it helps during ambulation. Case discussed with orthopedic and OK from Ortho standpoint to discharge to rehab Deep Vein Thrombosis of left lower extremity Dopper of LLE showed deep venous thrombosis identified in the calf within the posterior tibial and peroneal veins. S/p Insertion Of Vena Cava Filter performed by Dr. Felming on 05/21/20 On coumadin bridge with heparin IV with INR 1.8 today Coumadin increased to 7mg Will transition from heparin drip to Lovenox therapeutic dose Follow up with the coag clinic to monitor PT/INR Left Great toe osteomyelitis S/P Left Great Toe Amputation on 05/21 the Cefazolin IV antibiotics and Zerbaxa (ceftolozane/tazobactam) IV was stopped on 05/23/2020 and then transitioned to oral Cephalexin (Infectious disease consult note from Dr. Rashaad Quick on 05/22/2020 recommending to stop Cefazolin IV and Zerbaxa (ceftolozane/tazobactam) IV and instead place on Cephalexin chronically and that patient should have follow up with infectiouse disease [facility] Con[facility] in [facility]ouse [facility] after discharge) Rhabdomyolysis admission CPK admission 1169 received IV fluid CPK within normal limit resolved Polysubstance abuse Has been on multiple substances which can cause mental impairment including metaxalone, baclofen, fluoxetine, Adderall, oxycodone, OxyContin, diazepam, gabapentin, and amitriptyline Seems to be withdrawing from narcotics since UDS was negative on admission Continue oxycodone IR 5 mg PRN and and oxycodone 10mg in am and 20mg HS Continue to hold Adderall, Continue Amitriptyline and prozac Acute Kidney Injury Creatinine on admission 1.49 Received IVF Resolved NARINDER on CPAP: CPAP qhs DM type 2 (diabetes mellitus, type 2): Most recent Hba1c 6.5 on 04/19 Continue to hold outpatient DM med Continue Lantus and insulin sliding scale while inpatient Will resume outpatient oral DM on discharge Hypertension: Continue Amlodipine and metoprolol, lisinopril, indapamide Full code as per daughter, Ms. Raeann Jack (based in [place]). [phone]. Disposition Discharge to rehab today Admission and Anticipated Discharge Date Admission Date: May 19, 2020 Subjective Pt was seen and examined Sitting in chair with no distress Pt said that pain is control Pt plan to go to rehab today Denied any chest pain, palpitation, dizziness and SOB Physical Exam Physical Exam: General- No acute distress Head- atraumatic Eyes- PERRL, EOMI, ENT- oropharynx clear Neck- supple, no JVD Lungs- clear to auscultation Heart- regular rhythm; no murmur Abdomen- normal bowel sounds, soft, nontender Extremities- no calf tenderness, +dressing in left foot Neuro- alert, oriented x 3; PERRL, EOMI; no facial palsy; no dysarthria Skin- warm & dry Results & Data Results & Data ([facility]) Vital Signs (Past 12 Hours) Vital Signs Temp Pulse Resp BP Pulse Ox 05/29/20 09:40 93 H 125/71 05/29/20 07:24 36.6 C 73 17 152/85 H 95 (1) Fracture of distal end of femur Encounter type: initial encounter Fracture morphology: other fracture Fracture type: closed Laterality: left Qualified Code(s): S72.492A - Other fracture of lower end of left femur, initial encounter for closed fracture (2) Contusion of face Encounter type: initial encounter Qualified Code(s): S00.83XA - Contusion of other part of head, initial encounter
[2020-05-29] MEDS ORDERED: WARFARIN SOD 5 MG TAB PO SCH (16:00)
[2020-05-29] MEDS ORDERED: WARFARIN SOD 2 MG TAB PO SCH (16:00)
[2020-05-29] MEDS ORDERED: WARFARIN SOD 1 MG TAB PO SCH (16:00)
--- NOTE | 2020-05-29 16:38 | Orthopedic Progress Note ---
Date of Service May 29, 2020 Assessment & Plan (1) Femur fracture: Dressings were changed today by me. Darrin wrap was reapplied for edema control. He was placed back in his brace and it was resized for him. Continue with PT as previously directed. Follow-up with Dr. Rodriguez in about a week for staple removal. Continue his Keflex 500 mg twice daily as recommended by infectious disease. He will transition to Coumadin per medicine's recommendations. Continue Lovenox until therapeutic with his Coumadin. (2) Status post amputation of toe of left foot: New dressings were reapplied by me. His postop shoe was also reapplied. He will need to keep the area protected. Follow-up in the office in 1 week for suture removal. Admission and Anticipated Discharge Date Admission Date: May 19, 2020 Subjective Patient was seen in his room this morning. He was sleeping at the time that I entered. Awakes easily. He has no complaints at this point. Pain is controlled. He states he has not slept well for several nights, but last night he did sleep well. He is hoping to go to rehab today. No other complaints. Review of Systems Review of Systems: Unchanged from yesterday. Physical Exam Physical Exam: Patient has his postop shoe and knee brace on. Upon removal, dressings are all dry. Upon removal of his dressings, left thigh surgical incision is closed. [place] are intact. Wound edges well approximated. Minimal postoperative ecchymosis. No edema. No active drainage. Dressings are completely dry. Left foot dressings are also completely dry. Sutures are intact on the great toe. There is no active bleeding. Expected postoperative edema. No ecchymosis. Musculoskeletal: Patient has intact motor function of his ankle and toes. He is able to perform a straight leg raise with the left leg. Full terminal extension. Range of motion was not attempted at this time. Neurologic: Gross sensation is intact across the left leg by soft touch. Peripheral pulses are 2+. Results & Data ([facility]) Vital Signs (Past 12 Hours) Vital Signs Temp Pulse Resp BP Pulse Ox 05/29/20 09:40 93 H 125/71 05/29/20 07:24 36.6 C 73 17 152/85 H 95 Laboratory Results INR today is 1.8.
--- NOTE | 2020-05-30 09:10 | Discharge Summary ---
Date of Service May 29, 2020 Admission HPI Per Admitting Provider History obtained from patient, family, and records. Limited history from patient secondary disorientation. Medical history is significant for HTN, hyperlipidemia, DM2 on oral medications, NARINDER CPAP, ADD as per records, past tobacco abuse, poss ETOH abuse as per records, IBS as per records, ichthyosis congenita as per records, chronic pain, history L tibia osteomyelitis status post surgery on chronic Keflex suppression Rx, hx chronic L great toe wound (after stepping on a needle as per records) sp antibiotic Rx (osteomyelitis on recent MRI), chronic anemia (baseline hemoglobin of 10). Last confinement December 2019 for encephalopathy secondary to polysubstance abuse withdrawal. Patient subsequently transitioned to behavioral health unit for psychosis. As per daughter, home health nurse has not been able to check on patient regularly the last week due to patient's personal issues. Patient looked well on a remote camera daughter had installed at patient's home when daughter reviewed him 3 days ago. This morning, home health nurse visited patient at home. Patient did not answer the door. EMS contacted by home health nurse. Patient found by EMS to be disoriented and with evidence of facial trauma. BSG 130s at site. Patient does not recall events of the last few days or how he ended up on the floor.. Denies chest pain, S OB, abdominal pain. Patient complaining of achy left leg pain. Patient does not know if he ran out of pain meds at home. MEDICAL HISTORY: As above. Terminated [facility] medication usage agreement as per outpatient records. [facility] ID clinic visit last March 2020 for chronic left tibia osteomyelitis and L great toe wound. No obvious evidence of infection on soft tissue left great toe, chronic wound healing well as per note. MRI with contrast however recommended to rule out chronic osteomyelitis of left great toe. Amputation recommended if osteomyelitis found as antibiotic surgery without amputation almost always leads to relapse/recurrence as per ID note. 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 [facility] ID clinic follow-up recommended every 6 to 12 months given chronic Keflex Rx for left tibial osteomyelitis as per note. Outpatient left great toe MRI (05/12/20): 1. Small joint effusion at the interphalangeal joint of the first toe with bony destructive changes across the joint and abnormal marrow signal. This is highly suspicious for a septic arthritis. 2. Mild cellulitis within the first toe. Driver Engineer disposition unknown at this time. SURGERIES: Carpal tunnel, orthopedic surgeries. FAMILY HISTORY: heart disease as per records. PERSONAL SOCIAL HISTORY: Past tobacco abuse. Occasional alcohol intake as per daughter, she doubts abuse. On disability. Admission Exam Per Admitting Provider GENERAL: Disoriented, obese, no respiratory distress, uncomfortable SKIN: Pallor , warm HEENT: Bilateral periorbital ecchymoses, pale palpebral conjunctivae, multiple abrasions/dried blood on mid face, dry buccal mucosa NECK : Supple, short neck, no tenderness CHEST : Decreased breath sounds, no tenderness HEART : Tachycardic, no obvious murmurs ABDOMEN: Some distention, nontender EXTREMITIES : LLE swelling w/tenderness, no other conspicuous deformities noted NEUROLOGIC : Disoriented, no facial asymmetry, no other gross focality Principal Diagnosis -Acute Encephalopathy on admission -Contusion of face -Deep Vein Thrombosis of left lower extremity on admission (s/p Insertion Of Vena Cava Filter on this hospital admission, anticoagulation by anticoagulation treatment) -Fracture of distal end of femur (s/p Left Distal Femur Fracture Open Reduction Internal Fixation on this hospital admission) -Left Great toe osteomyelitis s/p (Left Great Toe Amputation on this hospital admission) -Acute Kidney Injury (resolved) -Rhabdomyolysis -Seasonal Affective disorder -Anxiety, delusions -NARINDER on CPAP -Hypertension -DM type 2 (diabetes mellitus, type 2) Discharge Exam General- No acute distress Head- atraumatic Eyes- PERRL, EOMI, ENT- oropharynx clear Neck- supple, no JVD Lungs- clear to auscultation Heart- regular rhythm; no murmur Abdomen- normal bowel sounds, soft, nontender Extremities- no calf tenderness, +dressing in left foot Neuro- alert, oriented x 3; PERRL, EOMI; no facial palsy; no dysarthria Skin- warm & dry Discharge Data Allergies Allergy/AdvReac Type Severity Reaction Status Date / Time simvastatin Allergy Unknown MUSCLE Verified 05/19/20 17:18 WEAKNESS,TINGLING haloperidol [From Haldol] AdvReac Unknown Unknown Verified 05/19/20 17:18 Consultations 05/19/20 22:30 Consult Case Management - Discharge Planning Routine Consult Orthopedic Surgery Routine Consult Vascular Surgery Routine 05/21/20 15:25 Consult Case Management - Discharge Planning Routine 05/22/20 06:45 Consult Infectious Diseases Routine 05/22/20 18:53 Consult Behavioral Health Liaison Routine 05/22/20 18:55 Consult Psychiatry Routine 05/26/20 10:51 Consult Pain Management Routine 05/26/20 17:20 Consult Infectious Diseases Routine Procedures Performed Operation Date: 05/20/20 09:20 <No data on this case meets the specified criteria> Operation Date: 05/21/20 07:30 Actual Procedures p Insertion Of Vena Cava Filter, Right Internal Jugular Approach, Ultrasound for Localization of Right Internal Jugular, Fluoroscopy for Positioning, Moderate Sedation from [id number](Right) - Vahid Fleming MD Operation Date: 05/21/20 10:30 Actual Procedures p Left Distal Femur Fracture Open Reduction Internal Fixation(Left) - Fercho Rodriguez MD s Left Great Toe Amputation(Left) - Fercho Rodriguez MD Ordered Studies 05/19/20 17:00 CT cervical spine wo con Stat CT face [CT facial bones wo con] Stat 05/19/20 17:12 CT head/brain wo con Stat 05/19/20 20:04 US venous doppler LE LT Urgent 05/20/20 08:57 CT knee LT wo con Urgent 05/21/20 FL femur LT 2V Routine FL fluoroscopy <1hr Routine 05/21/20 07:30 EV IVC filter placement Routine 05/21/20 13:00 FL toe LT 2V Routine SINGLE VIEW CHEST CLINICAL HISTORY: Change in mental status. FINDINGS: An AP, portable, upright chest radiograph is compared to study dated 11/29/2019. The cardiomediastinal silhouette is unremarkable. There is mild chronic elevation of right hemidiaphragm. Atelectasis is noted at the lung bases. No airspace consolidation or large pleural effusion is identified. No pneumothorax is seen. The bony thorax is grossly intact. IMPRESSION: No active disease in the chest. ACT 112: Negative or not required by law. Electronically signed by: Rommel Rodríguez M.D. 05/19/2020 5:39 PM Dictated: 05/19/201738 Transcribed: 05/19/201738 LEFT KNEE 2 VIEWS CLINICAL HISTORY: Fall. Left knee pain. FINDINGS: AP and crosstable lateral views of the left knee are compared to study dated 05/23/2017. The skeletal structures are osteopenic. Chronic posttraumatic deformity and postoperative change is seen in the proximal tibia. There is an acute and minimally distracted oblique fracture through the distal femoral metadiaphysis. There is apex volar angulation and mild overriding of fragments. There is also mild lateral distraction of the distal fragment by approximately 1 cm. The proximal tibia and fibula appear intact. Advanced tricompartmental degenerative joint space narrowing is noted with large marginal osteophytes. There is a knee joint effusion, as well as soft tissue swelling around the knee. IMPRESSION: Distal femoral fracture as above with associated joint effusion and soft tissue edema. Electronically signed by: Rommel Rodríguez M.D. 05/19/2020 5:41 PM Dictated: 05/19/201738 Transcribed: 05/19/201738 CT SCAN OF THE CERVICAL SPINE CLINICAL HISTORY: Fall. COMPARISON STUDY: CT of the cervical spine dated 02/11/2014. TECHNIQUE: CT scan of the cervical spine is performed from the skull base to the upper thoracic spine. Images are reviewed in the axial, sagittal, and coronal planes. IV contrast was not administered for this examination. A dose lowering technique was utilized adhering to the principles of ALARA. FINDINGS: Skeletal structures: The skeletal structures are osteopenic. There is no evidence of fracture or subluxation involving the cervical spine. Vertebral body height and alignment are maintained. There is straightening of the cervical lordosis with reversal centered at C4-C5. Anterior osteophytes are seen throughout. The odontoid process and lateral masses are intact. The atlantoaxial articulation is preserved noting productive degenerative change. The spinous processes appear intact. There is moderate to advanced multilevel cervical spondylosis. Uncovertebral and facet arthropathy contribute to neural foraminal stenosis at most levels. Intervertebral discs: Advanced disc space narrowing is seen at all levels between C3-C4 and C7-T1. There is advanced endplate sclerosis at C3-C4 Central canal: Posterior disc osteophyte complexes are seen at all levels between C3-C4 and C7-T1. This likely contributes to multilevel acquired compromise of the central canal. This is greatest at C6-C7. Soft tissues: The prevertebral and paraspinous soft tissues are within normal limits. There is atherosclerotic calcification of the carotid bulbs. Calvarium: The visualized calvarium at the skull base appears intact. Brain parenchyma: Partially visualized brain parenchyma the skull base is within normal limits. Sinuses and mastoids: The visualized paranasal sinuses are clear. The mastoid air cells are well pneumatized. Lung apices: Clear as visualized. IMPRESSION: 1. There is no evidence of fracture or subluxation involving the cervical spine. 2. Osteopenia and advanced spondylotic change as above. ACT 112: Negative or not required by law. Electronically signed by: Rommel Rodríguez M.D. 05/19/2020 6:25 PM Dictated: 05/19/201820 Transcribed: 05/19/201820 CT SCAN OF THE FACIAL BONES WITHOUT IV CONTRAST CLINICAL HISTORY: Facial injury. COMPARISON STUDY: No priors. TECHNIQUE: High-resolution CT scan of the facial bones is performed. Images are reviewed in the axial, sagittal, and coronal planes. IV contrast was not administered for this examination. A dose lowering technique was utilized adhering to the principles of ALARA. FINDINGS: The skeletal structures are osteopenic. There is no evidence of facial bone fracture. The bony orbits are intact and the orbital contents are within normal limits. The zygomatic arches, nasal bones, and pterygoid plates are preserved. The maxilla and mandible are intact. Generative change is noted in the temporomandibular joints. There are no layering blood products within the paranasal sinuses. The sinuses and mastoids are clear. The visualized calvarium appears intact. The upper cervical spine is maintained noting advanced spondylosis. Partially imaged brain parenchyma is within normal limits. There is atherosclerotic calcification of the carotid bulbs. A large periapical lucency is identified within a right mandibular premolar. IMPRESSION: There is no evidence of facial bone fracture. ACT 112: Negative or not required by law. Electronically signed by: Rommel Rodríguez M.D. 05/19/2020 6:13 PM Dictated: 05/19/201808 Transcribed: 05/19/201808 CT SCAN OF THE BRAIN WITHOUT IV CONTRAST CLINICAL HISTORY: Fall. COMPARISON STUDY: CT of the brain dated 11/29/2019. TECHNIQUE: Unenhanced axial CT scan of the brain is performed from the vertex to the skull base. A dose lowering technique was utilized adhering to the principles of ALARA. CT DOSE: 1137.73 mGy.cm FINDINGS: Brain parenchyma: There is minimal subcortical and periventricular microangiopathic change. There is no hemorrhage, mass effect, or evidence of acute territorial ischemia by CT criteria. Bo-white matter differentiation is preserved. No extra-axial fluid collection is seen. Ventricles, sulci, cisterns: Prominent secondary to involutional change. Intracranial vasculature: There is atherosclerotic calcification of the cavernous carotid and vertebral arteries. Calvarium: The skeletal structures are osteopenic. There is no depressed calvarial fracture. Sinuses and mastoids: The visualized paranasal sinuses are clear. The mastoid air cells are well pneumatized. Orbits: The bony orbits are grossly intact. IMPRESSION: There is no hemorrhage, mass effect, or evidence of acute territorial ischemia by CT criteria. ACT 112: Negative or not required by law. Electronically signed by: Rommel Rodríguez M.D. 05/19/2020 6:15 PM Dictated: 05/19/201812 Transcribed: 05/19/201812 SINGLE VIEW PELVIS CLINICAL HISTORY: Fall. FINDINGS: 2 AP supine pelvic radiographs are compared to studies dated 06/04/2018 and 12/03/2015. The skeletal structures are osteopenic. There is no radiographic evidence of acute fracture involving the hips or bony pelvis. There is chronic deformity of the left proximal femur. Mild to moderate degenerative joint space narrowing is present in the hips. Enthesophytes arise from the left anterior superior iliac spine. The sacroiliac joints are normal. Lumbosacral spondylosis is partially visualized. The overlying soft tissues are normal in appearance. IMPRESSION: 1. No acute bony abnormality is identified. 2. Chronic deformity of the left proximal femur is similar to prior studies. Electronically signed by: Rommel Rodríguez M.D. 05/19/2020 7:11 PM Dictated: 05/19/201907 Transcribed: 05/19/201907 ULTRASOUND LEFT LOWER EXTREMITY VENOUS CLINICAL HISTORY: Left leg swelling. COMPARISON STUDY: Left lower extremity venous ultrasound dated 06/30/2015. TECHNIQUE: Real-time, grayscale, and color Doppler sonography of the deep veins of the left lower extremity was performed from the inguinal crease to the calf. Compression and augmentation were utilized. FINDINGS: There is deep venous thrombosis identified in the calf within the posterior tibial and peroneal veins. There is no sonographic evidence of above knee deep venous thrombosis identified in the left lower extremity. The common femoral, superficial femoral, and popliteal veins are patent and normally compressible. The greater saphenous vein and the profunda femoris vein at the junction with the common femoral vein are clear. IMPRESSION: There is deep venous thrombosis identified in the left calf as detailed above. ACT 112: Negative or not required by law. Electronically signed by: Rommel Rodríguez M.D. 05/19/2020 11:37 PM Dictated: 05/19/202335 Transcribed: 05/19/202335 CT knee LT wo con HISTORY: 59 years-old Male frtacture acute left femur fracture COMPARISON: Radiographs of the left knee 05/19/2020, left knee CT 02/04/2011 TECHNIQUE: Multiple axial CT images of the left knee were obtained without the use of IV contrast. A dose lowering technique was used consistent with the principals of ALARA. FINDINGS: Right knee total joint arthroplasty is noted on the salesperson meats localizer images. Prior hardware removal with osteotomy changes of the proximal left tibia. Demineralized appearance of the bones. There is an acute comminuted fracture of the distal femoral metaphysis which demonstrates 1.6 cm posteriorly 1.5 cm lateral displacement. There is associated apex volar angulation of approximately 30 degrees. The fracture extends into the superior aspect of the trochlear groove. No extension into the medial or lateral femoral condyles. Tricompartmental osteoarthritis, severe within the medial compartment, moderate within the lateral and patellofemoral compartments. No intra-articular loose body identified. There is an acute nondisplaced fracture involving the medial patellar facet, best seen involving the anterior cortex inferiorly on image 151 series 3. Moderate lipohemarthrosis with moderate subcutaneous edema circumferentially involving the knee. Arterial calcifications. IMPRESSION: 1. Acute comminuted mildly displaced and angulated fracture of the distal femoral metaphysis with fracture extension into the superior aspect of the trochlear groove. 2. Acute nondisplaced fracture of the medial patella. 3. Moderate lipohemarthrosis with posttraumatic subcutaneous edema. 4. Demineralized appearance of the bones with tricompartmental osteoarthritis, severe within the medial compartment. 5. Remote osteotomy changes and hardware removal of the proximal tibia. ACT 112: Positive. There are findings on this exam that require communication between the performing entity and the patient following Patient Test Result Information Act ([place] Act 112) guidelines. The above report was generated using voice recognition software. It may contain grammatical, syntax or spelling errors. Electronically signed by: Matthew Espana M.D. 05/20/2020 10:14 AM Dictated: 05/20/20 1001 Transcribed: 05/20/20 1001 XR tibia fibula LT 2V CLINICAL HISTORY: Leg pain. COMPARISON: Leg length study May 08, 2018. Left knee radiographs May 19, 2020. CT of the left knee May 20, 2020. FINDINGS: No acute fracture of the left tibia or fibula is identified. Distal left femoral fracture is partially imaged on this exam. This is better shown on CT of the left knee performed earlier today. Remote post surgical findings within the proximal left tibia are noted. Talar dome is intact. Severe osteoarthritis of the left knee, most pronounced within the medial compartment, is noted. IMPRESSION: 1. No acute fracture of the left tibia or fibula. 2. Acute distal left femoral fracture better depicted on the CT of the left knee performed earlier today. 3. Remote post surgical findings within the proximal left tibia. 4. Severe medial compartment osteoarthritis of the left knee. ACT 112: Negative or not required by law. Electronically signed by: Willi Patrick M.D. 05/20/2020 3:21 PM Dictated: 05/20/201517 Transcribed: 05/20/201517 XR toe(s) LT min 2V CLINICAL HISTORY: left big toe, pain COMPARISON STUDY: Left foot 12/05/2019. FINDINGS: There is a small fracture along the lateral head of the proximal phalanx of the first toe with mild depression. There is lateral dislocation of the distal phalanx. There are erosive changes at the interphalangeal joint of the first toe. There is soft tissue swelling within the first toe. Suboptimal lateral view. IMPRESSION: 1. Small slightly depressed fracture within the lateral head of the proximal phalanx of the first toe. 2. There is lateral dislocation of the distal phalanx of the first toe. 3. Multiple erosions seen at the interphalangeal joint of the first toe. This may represent a septic arthritis. A gouty arthritis could also have a similar appearance in the appropriate clinical setting.. 4. These findings were called/faxed to the referring physician following dictation. ACT 112: Positive. There are findings on this exam that require communication between the performing entity and the patient following Patient Test Result Information Act ([place] Act 112) guidelines. Electronically signed by: Omero Noe M.D. 05/20/2020 3:21 PM Dictated: 05/20/201517 Transcribed: 07/21/20 1518 FL femur LT 2V CLINICAL HISTORY: LT DISTAL FEMUR FX COMPARISON STUDY: None. FLUOROSCOPY TIME: 1 minute and 35 seconds. FINDINGS: 3 fluoroscopic spot images of the left distal femur demonstrate a lateral cortical plate transfixed with screws bridging the femoral fracture. The hardware is intact. Alignment is near-anatomic. IMPRESSION: Fluoroscopy provided for internal fixation of a distal left femur fracture. ACT 112: Negative or not required by law. Electronically signed by: Omero Noe M.D. 05/21/2020 2:21 PM Dictated: 05/21/201419 Transcribed: 05/21/20 1420 FL toe LT 2V HISTORY: 59 years-old Male LT GREAT TOE AMPUTATION COMPARISON: [Radiographs 05/20/2020 TECHNIQUE: One spot fluoroscopic view of the left great toe FINDINGS: There is metallic device noted overlying the first MTP joint. Partial amputation of the first digit at the level of the mid diaphyseal aspect of the first proximal phalanx. IMPRESSION: Fluoroscopic assistance as above. Please see operative report for further details. ACT 112: Negative or not required by law. The above report was generated using voice recognition software. It may contain grammatical, syntax or spelling errors. Electronically signed by: Matthew Espana M.D. 05/21/2020 2:22 PM Dictated: 05/21/201419 Transcribed: 05/21/20 142 XR knee RT 3V CLINICAL HISTORY: Right knee pain COMPARISON: Right knee radiographs January 16, 2020. FINDINGS: Alignment of the total right knee arthroplasty is anatomic. There is no periprosthetic fracture or lucency. Hardware is intact. There is a possible small joint effusion. There are vascular calcification is noted. IMPRESSION: 1. Status post total right knee arthroplasty. No periprosthetic fracture or lucency. 2. Possible small right knee joint effusion. ACT 112: Negative or not required by law. Electronically signed by: Willi Patrick M.D. 05/21/2020 5:02 PM Dictated: 05/21/201700 Transcribed: 05/21/201700 Hospital Course (1) Encephalopathy: ACUTE ENCEPHALOPATHY on this admission -as per ED notes 05/19/2020 "This is a 59-year-old male brought in from home via EMS due to altered mental status. Patient has home health that comes and visits him on Tuesday, Tuesday, and Tuesday,. Patient last seen in his usual state of health on Tuesday. The home health nurse did come for her visit this morning, however he did not answer the door or let her in. After some time and for an unknown reason EMS was contacted many hours later. EMS found the patient in his house to be altered with evidence of facial trauma. Patient seemed confused, but was awake and could follow commands. They did check blood sugar prehospital which was 131. Patient cannot provide much in the way of details or history. Patient does have a complicated past medical history including diabetes, psychosis, and substance abuse." -CT head showed no hemorrhage, mass effect, or evidence of acute territorial ischemia -polypharmacy is considered as a cause versus alternative reason Seasonal Affective disorder Anxiety/delusions Chronic pain syndrome -patient reports that home dose Amitriptyline and prozac is primarily for pain, currently on home doses -currently on home dose Amitriptyline 25 mg qhs -05/22/2020 evening patient also called 911 because he was concerned that his keys in front of him were not his usual keys and he was concerned that somehow his daughter Reaann or patient friend Osman could have have had inappropriate access to his house and his goal was to call for police to do a drive by to verify that no one was in his house. he was also concerned that his daughter Raeann was involved in a radical group trying to cause him to be persecuted. At the same time, he allows for medical doctor to call his daughter Raeann to update her. Raeann on the telephone also reporting that his father had episodes of delusional thoughts and accusations made in the past. I have requested behavioral health consult to evaluate these delusions and paranoia -psychiatry service stopped fluoxetine and Adderall. they placed prn olanzapine if severe agitation -his daughter visited on 05/23/2020 and we discussed with patient about his health -Fluoxetine resumed since patient mental status is back to baseline Continue to hold the adderall (2) Contusion of face: from fall injury CT head showed no intracranial abnormality Stable (3) Fracture of distal end of femur: S/P Fall Pt does not recall the event. Home nurse found him on the floor Left Knee Xray showed distal femoral fracture as above with associated joint effusion and soft tissue edema. CT cervical showed no evidence of fracture or subluxation involving the cervical spine. Face CT showed no evidence of facial bone fracture. CT LLE showed acute comminuted mildly displaced and angulated fracture of the distal femoral metaphysis with fracture extension into the superior aspect of the trochlear groove. Acute nondisplaced fracture of the medial patella. Moderate lipohemarthrosis with posttraumatic subcutaneous edema. Ortho on board s/p Left Distal Femur Fracture Open Reduction Internal Fixation performed by Dr. Rodriguez on 05/21 Continue pain control Continue PT/OT Follow up with Dr. Rodriguez in about a week for staple removal. Non weight bearing LLE at all times; use walker to assist with ambulation. Keep brace on left knee at all times. May unlock brace if it helps during ambulation. Case discussed with orthopedic and OK from Ortho standpoint to discharge to rehab Deep Vein Thrombosis of left lower extremity Dopper of LLE showed deep venous thrombosis identified in the calf within the posterior tibial and peroneal veins. S/p Insertion Of Vena Cava Filter performed by Dr. Fleming on 05/21/20 On coumadin bridge with heparin IV with INR 1.8 today Coumadin increased to 7mg Will transition from heparin drip to Lovenox therapeutic dose Follow up with the coag clinic to monitor PT/INR Left Great toe osteomyelitis S/P Left Great Toe Amputation on 05/21 the Cefazolin IV antibiotics and Zerbaxa (ceftolozane/tazobactam) IV was stopped on 05/23/2020 and then transitioned to oral Cephalexin (Infectious disease consult note from Dr. Rashaad Quick on 05/22/2020 recommending to stop Cefazolin IV and Zerbaxa (ceftolozane/tazobactam) IV and instead place on Cephalexin chronically and that patient should have follow up with infectiouse disease Dr. Conlye in [facility] infectiouse disease clinic after discharge) Rhabdomyolysis admission CPK admission 1169 received IV fluid CPK within normal limit resolved Polysubstance abuse Has been on multiple substances which can cause mental impairment including metaxalone, baclofen, fluoxetine, Adderall, oxycodone, OxyContin, diazepam, gabapentin, and amitriptyline Seems to be withdrawing from narcotics since UDS was negative on admission Continue oxycodone IR 5 mg PRN and and oxycodone 10mg in am and 20mg HS Continue to hold Adderall, Continue Amitriptyline and prozac Acute Kidney Injury Creatinine on admission 1.49 Received IVF Resolved NARINDER on CPAP: CPAP qhs DM type 2 (diabetes mellitus, type 2): Most recent Hba1c 6.5 on 04/19 Continue to hold outpatient DM med Continue Lantus and insulin sliding scale while inpatient Will resume outpatient oral DM on discharge Hypertension: Continue Amlodipine and metoprolol, lisinopril, indapamide Full code as per daughter, Ms. Raeann Jack (based in [place]). [phone]. Disposition Discharge to rehab today Total Time Total Time Spent Total Time Spent (In Minutes): 40 minutes Total Time Includes: Examination of the Patient, Discharge Planning, Medication Reconciliation, Communication With Other Providers and Other Discharge Plan Discharge Items Patient Disposition: Transfer Inpatient Rehab Fac Reason For Visit: HTN URGENCY,TACHY,ENCEPHALOPATHY Discharge Diagnosis: -Acute Encephalopathy on admission -Contusion of face -Deep Vein Thrombosis of left lower extremity on admission (s/p Insertion Of Vena Cava Filter on this hospital admission, anticoagulation by anticoagulation treatment) -Fracture of distal end of femur (s/p Left Distal Femur Fracture Open Reduction Internal Fixation on this hospital admission) -Left Great toe osteomyelitis s/p (Left Great Toe Amputation on this hospital admission) -Acute Kidney Injury (resolved) -Rhabdomyolysis -Seasonal Affective disorder -Anxiety, delusions -NARINDER on CPAP -Hypertension -DM type 2 (diabetes mellitus, type 2) Condition on Discharge: Fair Activity: As commented below Non-emergency contact: Surgeon Call non-emergency contact if: you have any medication questions, your pain is not controlled, your temperature is above 101 and your wound has increased lauren shivani Follow-up/Referrals: Fercho Rodriguez MD [Surgeon] - 06/03/20 10:30 am PCP,NO [Physician] - Diet: Carb Consistent or DM2 Addtl Attending Provider Instructions: upcoming scheduled [facility] clinic appointments 06/10/2020 1:00 PM Provider Noy Agustin PA-C Department Rheumatology [facility] 09/11/2020 11:40 AM Provider Rich Otoole III, MD Department [facility] 10/02/2020 10:20 AM Provider Nubia Ramirez MD Department Pulmonary Medicine, [facility] Follow up with orthopedic in 1 week (please call to schedule for the follow up appointment) Continue physical and occupation therapy Fall precaution Monitor for any abnormal bleeding(Such as blood in urine and stools) Follow up with the coumadin clinic to monitor your PT/INR (Check PT/INR tomorrow 05/30) Continue Lovenox until INR therapeutic Continue chronic antibiotic use with cephalexin ( Please follow up with Infectious disease in [facility]) Metaxalone 800mg in the morning and 1600 mg at 12:00PM Adderall can be resumed outpatient (Please follow up with psychiatrist) Medication Instructions: Coumadin Warfarin is a medicine prescribed to prevent blood clots Warfarin will thin your blood and help prevent new clots Take your medications exactly as directed Never skip a dose. Never take a double dose. If you miss a dose, take it as soon as you remember It is important for your doctor to monitor your prothrombin time (PT). This is a lab test Keep your appointment for lab tests Risk of Adverse Drug Reactions and Interactions: Warfarin increases your risk of bleeding The food you eat and other medications you take can affect how Warfarin works in your body Ask your doctor about daily aspirin therapy It is very important to talk with your doctor about all of the other medicines, antibiotics, vitamins or herbal products that you are taking All of your medication must be approved by your doctor, including new medicines, as well as medicines you have taken before you started taking Warfarin Avoid NSAIDs (Motrin, Aleve, Naproxen, Ibuprofen, Advil, Meloxicam,..) due to risks of bleeding Diet: In order for Warfarin to work properly, it is important to keep your intake of Vitamin K as consistent as possible You should avoid any sudden change in Vitamin K intake Report any significant changes in your diet or weight to your doctor Call your Primary Care doctor if you experience any of the following: Swelling or Pain in your leg Sudden, continuous pain deep in a muscle Pain that worsens when you are active or when you stand still for a long time Chest Pain Sudden Shortness of Breath Rapid or pounding heart beat Fainting Dizziness Cough with blood or bloody sputum Sweating more than normal Bruises Heavy or uncontrolled bleeding Blood in your urine, stool or vomit Black or tarry stools Caring for Your Self at Home: Avoid sitting, standing or lying down for long periods without moving your legs and feet When traveling by car, stop to get out and move around at least once every 3 hours On long airplane, train or bus rides, get up and move around when possible If you can't get up, wiggle your toes and tighten your calves to keep your blood moving Follow Up: It is important for you to keep your follow up appointments with your medical provider. 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 Keep brace on left knee at all times. May unlock brace if it helps during ambulation. Can set brace at 0 degrees of extension, 90 degrees of flexion. May do ROM left knee 0-90 degrees. Post op shoe left foot when out of bed. Ice to left knee and left foot as needed for pain/swelling. elevate left lower extremity as needed for pain/swelling. Hinged ROM brace Right knee PRN comfort. pain medication as prescribed. Continue DVT prophylaxis. Continue suppressive antibiotics. Follow up with Dr. Rodriguez 1 weeks after surgery. Call [phone] to schedule appointment. Follow up as scheduled Pending Studies at Discharge: No Stand-Alone Forms: [employer], Opioid Pain Management Skilled Items Patient informed of condition?: Yes DNR: No Discharge Level of Care: Acute rehab Communicable Disease: No Discharge Prognosis: Stable Lines: None Urinary Catheter: No Medications and DC Order Prescriptions: New enoxaparin 100 mg/mL Syringe 100 mg subcut BID 2 Days Qty: 4 RF: 0 metaxalone [Skelaxin] 800 mg Tablet 1,600 mg PO DAILY@1200 Qty: 30 RF: 0 oxycodone [OxyContin] 20 mg Tablet,Oral Only,Ext.Rel.12 Hr 20 mg PO UD PRN (Reason: Pain) Qty: 10 RF: 0 warfarin [Coumadin] 5 mg tablet 7 mg PO Q OTHER DAY Qty: 30 RF: 0 Continued cephalexin [Keflex] 500 mg capsule 500 mg PO BID Qty: 60 RF: 2 gabapentin 400 mg Capsule 400 mg PO TID RF: 0 amlodipine [Norvasc] 10 mg Tablet 10 mg PO HS RF: 0 metoprolol tartrate 50 mg Tablet 50 mg PO BID RF: 0 pioglitazone [Actos] 30 mg Tablet 30 mg PO QAM RF: 0 lisinopril 40 mg Tablet 40 mg PO HS RF: 0 fluticasone propionate [Flonase Allergy Relief] 50 mcg/actuation [place],Suspension 1 spray INTRANASAL BID PRN (Reason: Congestion) RF: 0 docusate sodium [DOK] 100 mg Tablet 100 mg PO BID RF: 0 ketoconazole 2 % Shampoo 1 applic topical WK RF: 0 metformin 850 mg Tablet 850 mg PO BIDM RF: 0 fexofenadine [Carmen Allergy] 180 mg Tablet 180 mg PO DAILY PRN (Reason: Allergy Symptoms) RF: 0 ipratropium bromide 0.03 % [place],Non-Aerosol 2 spray INTRANASAL QID PRN (Reason: Runny Nose) RF: 0 Victoza 3-Toni 0.6 mg/0.1 mL (18 mg/3 mL) Pen Injector 1.2 mg SUBCUT QAM RF: 0 guaifenesin [Mucinex] 600 mg Tablet Extended Release 12hr 600 mg PO Q12H PRN (Reason: Congestion) RF: 0 multivitamin Tablet 1 tab PO QDD RF: 0 indapamide 2.5 mg Tablet 2.5 mg PO HS RF: 0 acetaminophen [Tylenol 8 Hour] 650 mg Tablet Extended Release 650 mg PO DIRECTED PRN (Reason: Pain) RF: 0 rosuvastatin [Crestor] 20 mg Tablet 20 mg PO DAILY RF: 0 baclofen 20 mg Tablet 40 mg PO HS Qty: 28 RF: 0 Caltrate 600-D Plus Minerals 600 mg calcium- 800 unit-50 mg Tablet 1 tab PO QAM Qty: 14 RF: 0 aspirin [Aspir-81] 81 mg Tablet,Delayed Release (Dr/Ec) 81 mg PO DAILY RF: 0 amitriptyline 25 mg Tablet 25 mg PO HS RF: 0 omeprazole 20 mg Capsule,Delayed Release(Dr/Ec) 20 mg PO DAILYBB RF: 0 Changed fluoxetine 20 mg capsule 20 mg PO QAM Qty: 0 RF: 0 oxycodone 5 mg Tablet 5 mg PO QID PRN (Reason: Pain) Qty: 10 RF: 0 metaxalone 800 mg Tablet 800 mg PO DAILY Qty: 0 RF: 0 Discontinued dextroamphetamine-amphetamine [Adderall XR] 20 mg capsule,extended release 24hr 20 mg PO DAILY RF: 0 meloxicam 7.5 mg Tablet 7.5 mg PO BID RF: 0 Discharge Orders: Discharge Order (Routine); Ordered 05/29/20 Ordered By: Britt Santo/Other Patient Handouts: High Blood Sugar (Hyperglycemia), Hypoglycemia (Low Blood Sugar), Managing Type 2 Diabetes, Warfarin tablets Admission Data Admit Date/Time: 05/19/20 20:13 Attending Provider: Britt Salazar Admit Provider: Pillo Paula Primary Care Provider: Rich Otoole Other Providers: [facility] ; Cody Schaffer ; Vahid Fleming ; Rashaad Dumas ; Cole Conley ; Eliseo Schaffer I. ; Hugo Martinez II ; Deloris Negron ; Osman Messer ; Elias Carney I. ; Candelario Estrella ; James Perez Other Interventions: Discharge Summary Assessment (RN) Last Done: 05/29/20 14:20 DC Date/Time DO NOT enter until pt leaves facility: 05/29/20 14:58
== END 2020-05-29 14:58 | DRG 480 ==
LOC: ED 16:33 → 2S 20:13 → SUATTDRO 20:13 → 2S 20:54 → 3W 05-25 17:01

== ENCOUNTER 2022-06-26 22:20 | Observation (INO) ==
[2022-06-26 23:00] LABS: Basophils # (auto) 0.01 K/uL (0-0.2); Basophils % (auto) 0.1 %; Eosinophils # (auto) 0.01 K/uL (0-0.50); Eosinophils % (auto) 0.1 %; Hematocrit (blood only) 33.1 % (40.1-51.0); Hemoglobin 10.6 g/dl (14.0-18.0); Immature Granulocytes # (auto) 0.07 K/uL (0.00-0.02); Immature Granulocytes % (auto) 0.8 %; Lymphocytes # (auto) 0.49 K/uL (1.2-3.4); Lymphocytes % (auto) 5.5 %; Mean Corpuscular Volume 84.2 fL (80.0-100.0); Mean Platelet Volume 10.9 fL (9.4-12.4); Monocytes # (auto) 0.71 K/uL (0.24-0.82); Monocytes % (auto) 7.9 %; Neutrophils # (auto) 7.65 K/uL (1.4-6.5); Neutrophils % (auto) 85.6 %; Platelet Count 218 K/uL (130-400); RDW Coefficient of Variation 14.3 % (11.5-14.5); RDW Standard Deviation 43.9 fL (36.4-46.3); Red Blood Count 3.93 M/uL (4.63-6.08); White Blood Count 8.94 K/ul (4.8-10.8)
--- NOTE | 2022-06-26 23:07 | Emergency Department Note ---
History of Present Illness General Chief complaint: Fall Time Seen by Provider: 06/26/22 22:39 History of Present Illness Maximum Pain Intensity: 8 61-year-old male presents emergency department states that he is status post lumbar surgery at [facility] approximately 1 week ago reportedly has been doing well. He states today he was getting out of bed and had a mechanical fall. Patient denies hitting his head. Patient states he laid on the floor for a period of time and had to crawl to get help. Patient states that he has increased tremor since the event. He states that he easily gets dehydrated when this happens he has tremors. Patient denies any specific head pain neck pain or low back pain. Patient denies numbness or tingling in the legs. Patient denies chest pain shortness of breath abdominal pain. There are no other mitigating or alleviating factors Home Medications Medication Instructions Recorded Confirmed Type amlodipine 10 mg tablet (Norvasc) 10 mg PO QPM 11/03/18 06/27/22 History docusate sodium 100 mg tablet (DOK) 100 mg PO BID 11/03/18 06/27/22 History gabapentin 400 mg capsule 400 mg PO TID 11/03/18 06/27/22 History indapamide 2.5 mg tablet 2.5 mg PO QPM 11/03/18 06/27/22 History ipratropium bromide 21 mcg (0.03 2 spray intranasal QID PRN Runny 11/03/18 06/27/22 History %) nasal spray Nose ketoconazole 2 % shampoo 1 applic topical 2XWK 11/03/18 06/27/22 History lisinopril 40 mg tablet 40 mg PO HS 11/03/18 06/27/22 History metoprolol tartrate 50 mg tablet 50 mg PO BID 11/03/18 06/27/22 History pioglitazone 30 mg tablet (Actos) 30 mg PO QAM 11/03/18 06/27/22 History acetaminophen 650 mg 1,300 mg PO HS 11/29/19 06/27/22 History tablet,extended release (Tylenol 8 Hour) amitriptyline 25 mg tablet 25 mg PO HS 05/19/20 06/27/22 History omeprazole 20 mg capsule,delayed 20 mg PO DAILYBB 05/19/20 06/27/22 History release fluoxetine 20 mg capsule 20 mg PO QAM #0 caps 05/29/20 06/27/22 Rx aspirin 81 mg tablet,delayed 81 mg PO QAM 01/26/21 06/27/22 History release hydroxyzine HCl 25 mg tablet 50 mg PO HS 01/26/21 06/27/22 History acetaminophen 325 mg tablet 650 mg PO TID PRN Pain 06/27/22 06/27/22 History amoxicillin 500 mg capsule 2,000 mg PO ONCE PRN 1 hours prior 06/27/22 06/27/22 History dental appt azelastine 137 mcg (0.1 %) nasal 2 spray intranasal BID PRN 06/27/22 06/27/22 History spray aerosol Congestion baclofen 20 mg tablet 80 mg PO HS 06/27/22 06/27/22 History calcium 600 mg-D3 800 unit-mag11 1 tab PO BID 06/27/22 06/27/22 History 50 ev-vflg-mnovyr-kindra-s.borat tablet (Caltrate 600-D Plus Minerals) celecoxib 200 mg capsule 200 mg PO DAILY PRN Pain 06/27/22 06/27/22 History cholecalciferol (vitamin D3) 50 50 mcg PO DAILY 06/27/22 06/27/22 History mcg (2,000 unit) capsule (Vitamin D3) enoxaparin 100 mg/mL subcutaneous 100 mg subcut Q12 06/27/22 06/27/22 History syringe fluoxetine 10 mg capsule 10 mg PO Q OTHER DAY 06/27/22 06/27/22 History ketorolac 60 mg/2 mL intramuscular 0 mg IM .EVERY 48 HOURS PRN Pain 06/27/22 06/27/22 History solution liraglutide 0.6 mg/0.1 mL (18 mg/3 1.8 mg subcut QAM 06/27/22 06/27/22 History mL) subcutaneous pen injector (Victoza 3-Toni) melatonin 5 mg tablet 40 mg PO HS 06/27/22 06/27/22 History metaxalone 400 mg tablet 400 mg PO TID PRN Muscle Spasm 06/27/22 06/27/22 History metformin 500 mg tablet,extended 500 mg PO BID 06/27/22 06/27/22 History release 24 hr nystatin 100,000 unit/gram topical 1 applic topical HS PRN testicle 06/27/22 06/27/22 History powder sweat ondansetron HCl 4 mg tablet 4 mg PO Q6H PRN Nausea 06/27/22 06/27/22 History oxycodone 5 mg tablet See Rx Instructions .Route 06/27/22 06/27/22 History .COMPLEX PRN Pain rosuvastatin 10 mg tablet 10 mg PO HS 06/27/22 06/27/22 History tizanidine 4 mg tablet 4 mg PO Q8H PRN Muscle Spasm 06/27/22 06/27/22 History Allergies Allergy/AdvReac Type Severity Reaction Status Date / Time simvastatin Allergy Unknown MUSCLE Verified 06/27/22 02:31 WEAKNESS,TINGLING haloperidol [From Haldol] AdvReac Unknown Unknown Verified 06/27/22 02:31 Past Med/Surg History Medical History (Updated 06/27/22 @ 01:31 by Johnny Trinh DO) RUDY (acute kidney injury) Anemia Benzodiazepine abuse Chronic pain Deep vein thrombosis Delirium Diabetic foot ulcer associated with type 2 diabetes mellitus Diverticulosis DM type 2 (diabetes mellitus, type 2) Dyslipidemia Encephalopathy Femur fracture "S/P repair" History of septic arthritis Hypertension Mood disorder Opiate abuse, continuous NARINDER on CPAP Psychosis Raynaud disease Rhabdomyolysis CPK on admission elevated 1169 Received IVF CPK 859 Surgical History H/O hand surgery History of carpal tunnel surgery S/P left knee arthroscopy Status post total knee replacement, right Family History Other Family history non-contributory Social History Smoking Status: Never smoker Second Hand Exposure: No; Hx Alcohol Use: Yes Alcohol type: beer and hard liquor Hx Substance Use: No Preferred Language: Japanese Communication Ability: Effective 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 Current Living Situation: Alone Feels Safe at Home: Yes Assistive Devices: Walker Review of Systems A total of 10 systems reviewed and were otherwise negative Constitutional: + chills Respiratory: no cough Cardiovascular: no chest pain Neurologic: + gait abnormality, + generalized weakness and + tremor(s) Physical Exam Vital Signs Vital Signs - 24 hr 06/26/22 22:29 06/26/22 22:48 06/26/22 22:48 Temperature 37.8 C H Temperature Source Oral Pulse Rate 133 H Pulse Rate [Right] Pulse Rhythm Regular Pulse Rhythm [Right] Pulse Strength Normal Pulse Strength [Right] Respiratory Rate 20 Respiratory Effort / Characteristics Non-Labored Spontaneous Labored Non-Labored Spontaneous Respiratory Depth Normal Normal Respiratory Pattern Regular Blood Pressure Blood Pressure [Left Arm] Blood Pressure Mean [Left Arm] Blood Pressure Position [Left Arm] Pulse Oximetry 93 89 L Oxygen Delivery Method Room Air Nasal Cannula Oxygen Flow Rate 2 Sepsis Recent Fever Within 48 Hours No Sepsis New/Unexplained Change in Mental Status No Sepsis Action Taken by Nursing No Action Required Oxygen Flow Rate - Titration 2 06/26/22 22:48 06/26/22 23:48 06/27/22 00:28 Temperature Temperature Source Pulse Rate Pulse Rate [Right] 130 H Pulse Rhythm Pulse Rhythm [Right] Regular Pulse Strength Pulse Strength [Right] Respiratory Rate 22 Respiratory Effort / Characteristics Non-Labored Non-Labored Spontaneous Respiratory Depth Normal Respiratory Pattern Regular Blood Pressure Blood Pressure [Left Arm] 150/90 H Blood Pressure Mean [Left Arm] 110 Blood Pressure Position [Left Arm] Sitting Pulse Oximetry 95 94 96 Oxygen Delivery Method Nasal Cannula Nasal Cannula Nasal Cannula Oxygen Flow Rate 2 2 2 Sepsis Recent Fever Within 48 Hours Sepsis New/Unexplained Change in Mental Status Sepsis Action Taken by Nursing Oxygen Flow Rate - Titration 06/27/22 00:28 06/27/22 00:37 06/27/22 01:27 Temperature 37.5 C Temperature Source Oral Pulse Rate Pulse Rate [Right] 137 H Pulse Rhythm Pulse Rhythm [Right] Regular Pulse Strength Pulse Strength [Right] Normal Respiratory Rate 22 Respiratory Effort / Characteristics Non-Labored Spontaneous Non-Labored Spontaneous Non-Labored Spontaneous Respiratory Depth Normal Respiratory Pattern Regular Blood Pressure Blood Pressure [Left Arm] Blood Pressure Mean [Left Arm] Blood Pressure Position [Left Arm] Pulse Oximetry 95 97 Oxygen Delivery Method Room Air Nasal Cannula Oxygen Flow Rate 2 Sepsis Recent Fever Within 48 Hours Sepsis New/Unexplained Change in Mental Status Sepsis Action Taken by Nursing Oxygen Flow Rate - Titration 06/27/22 01:32 06/27/22 02:30 06/27/22 02:41 Temperature Temperature Source Pulse Rate 129 H Pulse Rate [Right] 130 H Pulse Rhythm Pulse Rhythm [Right] Regular Pulse Strength Pulse Strength [Right] Normal Respiratory Rate 19 Respiratory Effort / Characteristics Non-Labored Spontaneous Non-Labored Spontaneous Respiratory Depth Normal Respiratory Pattern Regular Blood Pressure 148/92 H Blood Pressure [Left Arm] 148/92 H Blood Pressure Mean [Left Arm] 110 Blood Pressure Position [Left Arm] Lying Pulse Oximetry 96 Oxygen Delivery Method Nasal Cannula Oxygen Flow Rate 2 Sepsis Recent Fever Within 48 Hours Sepsis New/Unexplained Change in Mental Status Sepsis Action Taken by Nursing Oxygen Flow Rate - Titration 06/27/22 03:06 06/27/22 03:41 06/27/22 03:41 Temperature Temperature Source Pulse Rate Pulse Rate [Right] 120 H 120 H Pulse Rhythm Pulse Rhythm [Right] Regular Pulse Strength Pulse Strength [Right] Normal Respiratory Rate 20 20 Respiratory Effort / Characteristics Non-Labored Spontaneous Non-Labored Spontaneous Respiratory Depth Normal Respiratory Pattern Blood Pressure Blood Pressure [Left Arm] 143/111 H Blood Pressure Mean [Left Arm] 121 Blood Pressure Position [Left Arm] Pulse Oximetry 97 97 Oxygen Delivery Method Nasal Cannula Room Air Oxygen Flow Rate Sepsis Recent Fever Within 48 Hours Sepsis New/Unexplained Change in Mental Status Sepsis Action Taken by Nursing Oxygen Flow Rate - Titration VITAL SIGNS - Vital signs and nursing notes were reviewed. GENERAL - no acute distress. Communicates well with provider and answers questions appropriately. SKIN - Without rashes. HEAD - NC/AT. EYES - PERRL with EOMI bilaterally. Sclera anicteric. Palpebral conjunctiva pink and moist with no injection noted. EARS - No deformities of external structures noted on gross examination bilaterally. NOSE - Midline and without cyanosis. No epistaxis or purulent drainage noted. Septum midline without deviation or septal hematoma noted. MOUTH/OROPHARYNX - Without perioral cyanosis. Buccal mucosa pink and moist and without leukoplakia. Tongue midline with equal elevation of palate bilaterally. No tonsillar hypertrophy, erythema, or exudates noted. NECK - Neck with FROM. Supple to palpation. No lymphadenopathy noted. No nuchal rigidity. LUNGS - Chest wall symmetric without accessory muscle use, intercostals retractions, or central cyanosis. Normal vesicular breath sounds CTA B/L. No wheezes, rales, or rhonchi appreciated. CARDIAC - Tachycardic with S1/S2. No murmur, rubs, or gallops appreciated. ABDOMEN - Abdominal contour soft without pulsations or visible masses. BS normoactive all four quadrants. No tenderness, palpable masses, hepatosplenomegaly, or ascites noted. EXTREMITIES - No clubbing or peripheral cyanosis. No pretibial edema present. +5/5 strength noted in UE/LE bilaterally. Patient has abrasions to the bilateral patellar region.; Exam reveals a midline surgical wound that is bandaged there is no obvious significant erythema or discharge. NEUROLOGIC - Cranial nerves II through XII grossly intact. Sensory intact to light touch throughout. Patient has resting myoclonic jerks PSYCH - A&Ox3 and cooperates fully with examiner. Pt is very pleasant and interacts well with examiner. Course Reevaluation(s) Reevaluation #1: Patient was started on IV fluids, given IV fentanyl, given Tylenol. Patient r emained tachycardic he has evidence of dehydration he has evidence of low magnesium. He was given IV magnesium as well. Patient remained tachycardic continues to complain of generalized pain and has myoclonic jerks. Do not think that this patient is in septic shock at this time. This case was discussed with the [facility] hospitalist for admission. Time: 01:31 Administered Medications Discontinued Medications Acetaminophen (Acetaminophen 500 Mg Tab) 1,000 mg PO NOW STA Stop: 06/27/22 01:22 Last Admin: 06/27/22 01:38 Dose: 1,000 mg Documented By: ROBERTO Fentanyl Citrate (Fentanyl Citrate 100 Mcg/2 Ml Vial) 50 mcg IV NOW STA Stop: 06/27/22 00:29 Last Admin: 06/27/22 00:36 Dose: 50 mcg Documented By: ROBERTO Sodium Chloride (Nss 1000ml) 1,000 mls @ 999 mls/hr IV .Q1H1M ONE Stop: 06/27/22 00:20 Last Infusion: 06/27/22 01:29 Dose: 0 mls/hr Documented By: Admin: 06/26/22 23:38 Dose: 999 mls/hr Documented By: ROBERTO Magnesium Sulfate/Dextrose (Magnesium Sulfate / D5w) 1 gm in 100 mls @ 100 mls/hr IV NOW STA Stop: 06/27/22 01:50 Last Infusion: 06/27/22 02:26 Dose: 0 mls/hr Documented By: Admin: 06/27/22 00:57 Dose: 100 mls/hr Documented By: ROBERTO Sodium Chloride (Nss 1000ml) 1,000 mls @ 999 mls/hr IV .Q1H1M ONE Stop: 06/27/22 02:21 Last Infusion: 06/27/22 02:27 Dose: 0 mls/hr Documented By: Admin: 06/27/22 01:29 Dose: 999 mls/hr Documented By: ROBERTO Calcium Gluconate () 1,000 mg in 60 mls @ 240 mls/hr IV NOW STA Stop: 06/27/22 01:56 Last Infusion: 06/27/22 03:06 Dose: 0 mls/hr Documented By: Admin: 06/27/22 02:38 Dose: 240 mls/hr Documented By: ROBERTO Magnesium Sulfate/Dextrose (Magnesium Sulfate / D5w) 1 gm in 100 mls @ 50 mls/hr IV ONE STA Stop: 06/27/22 04:04 Last Admin: 06/27/22 03:06 Dose: 50 mls/hr Documented By: ADDISON Ketorolac Tromethamine (Ketorolac Tromethamine 15 Mg/Ml Vial) 15 mg IV NOW ONE Stop: 06/27/22 03:53 Last Admin: 06/27/22 04:07 Dose: Not Given Documented By: ROBERTO Lidocaine (Lidocaine 5% 1 Patch) 1 patch TD NOW STA Stop: 06/27/22 03:53 Last Admin: 06/27/22 04:28 Dose: Not Given Documented By: ROBERTO Metoprolol Tartrate (Metoprolol Tartrate 1 Mg/Ml Vial) 5 mg IV NOW STA Stop: 06/27/22 01:46 Last Admin: 06/27/22 02:41 Dose: 5 mg Documented By: ROBERTO Oxycodone HCl (Oxycodone Hcl Ir 5 Mg Tab (Immediate Release)) 10 mg PO NOW STA Stop: 06/27/22 04:10 Last Admin: 06/27/22 04:27 Dose: 10 mg Documented By: ROBERTO Critical Care Time Critical Care Time: Yes Total Critical Care Time: 35 I have personally spent greater than 35 minutes of critical care time in the direct management of this patient. This includes bedside care, interpretation of diagnostic studies, and testing, discussion with consultants, patient, and family members, and other required patient management activities. These minutes are in excess of all separately billable procedures. Medical Decision Making Medical Records Attestation: I reviewed the patient's medical records. Home Medications Current Medication List: was personally reviewed by me Laboratory Data Result diagrams: 06/26/22 22:44 06/26/22 22:44 Lab Results 06/26/22 06/26/22 06/26/22 Range/Units 22:44 22:44 22:44 WBC 8.94 (4.8-10.8) K/ul RBC 3.93 L (4.63-6.08) M/uL Hgb 10.6 L (14.0-18.0) g/dl Hct 33.1 L (40.1-51.0) % MCV 84.2 (80.0-100.0) fL MCH 27.0 (25.0-34.0) pg MCHC 32.0 (32.0-36.0) g/dL RDW Std Deviation 43.9 (36.4-46.3) fL RDW Coeff of Kiki 14.3 (11.5-14.5) % Plt Count 218 (130-400) K/uL MPV 10.9 (9.4-12.4) fL Immature Gran % (Auto) 0.8 % Neut % (Auto) 85.6 % Lymph % (Auto) 5.5 % [place] % (Auto) 7.9 % Eos % (Auto) 0.1 % Baso % (Auto) 0.1 % Neut # (Auto) 7.65 H (1.4-6.5) K/uL Lymph # (Auto) 0.49 L (1.2-3.4) K/uL [place] # (Auto) 0.71 (0.24-0.82) K/uL Eos # (Auto) 0.01 (0-0.50) K/uL Baso # (Auto) 0.01 (0-0.2) K/uL Immature Gran # (Auto) 0.07 H (0.00-0.02) K/uL PT 11.0 (9.0-12.0) Seconds INR 1.0 (0.9-1.1) APTT 28.5 (21.0-31.0) Seconds PTT Ratio 1.0 Sodium 139 (136-145) mmol/L Potassium 5.6 H (3.5-5.1) mmol/L Chloride 104 (98-107) mmol/L Carbon Dioxide 25 (21-32) mmol/L Anion Gap 10 (3-11) BUN 45 H (6-23) mg/dl Creatinine 1.31 (0.6-1.4) mg/dl Est Cr Clr Drug Dosing 69.3 ml/min Est GFR ( Amer) 67.6 ml/min Est GFR (Non-Af Amer) 58.3 ml/min BUN/Creatinine Ratio 34.4 H (10-20) Glucose 147 H (70-99(Fasting)) mg/dl POC Glucose (70-99) mg/dl Lactate (0.4-2.0) mmol/L Calcium 9.8 (8.5-10.1) mg/dl Magnesium 1.5 L (1.7-2.4) mg/dl Total Bilirubin 0.8 (0.2-1.0) mg/dl AST 31 (13-39) U/L ALT 20 (7-52) U/L Alkaline Phosphatase 135 H (34-104) U/L Total Creatine Kinase 565 H (30-223) U/L Troponin I High Sens (0-20) pg/ml Total Protein 7.7 (6.0-8.3) gm/dl Albumin 4.4 (3.4-5.0) gm/dl Globulin 3.3 (2.5-4.0) gm/dl Albumin/Globulin Ratio 1.3 (0.9-2) TSH (0.300-4.500) uIu/ml Urine Color Urine Appearance (Clear) Urine pH (4.5-7.5) Ur Specific [place] (1.000-1.030) Urine Protein (Negative) Urine Glucose (UA) (Negative) Urine Ketones (Negative) Urine Blood (Negative) Urine Nitrite (Negative) Urine Bilirubin (Negative) Urine Urobilinogen (Negative) Ur Leukocyte Esterase (Negative) SARS-CoV-2, RNA, NAAT (NEGATIVE) 06/26/22 06/26/22 06/26/22 Range/Units 22:44 23:23 23:29 WBC (4.8-10.8) K/ul RBC (4.63-6.08) M/uL Hgb (14.0-18.0) g/dl Hct (40.1-51.0) % MCV (80.0-100.0) fL MCH (25.0-34.0) pg MCHC (32.0-36.0) g/dL RDW Std Deviation (36.4-46.3) fL RDW Coeff of Kiki (11.5-14.5) % Plt Count (130-400) K/uL MPV (9.4-12.4) fL Immature Gran % (Auto) % Neut % (Auto) % Lymph % (Auto) % [place] % (Auto) % Eos % (Auto) % Baso % (Auto) % Neut # (Auto) (1.4-6.5) K/uL Lymph # (Auto) (1.2-3.4) K/uL [place] # (Auto) (0.24-0.82) K/uL Eos # (Auto) (0-0.50) K/uL Baso # (Auto) (0-0.2) K/uL Immature Gran # (Auto) (0.00-0.02) K/uL PT (9.0-12.0) Seconds INR (0.9-1.1) APTT (21.0-31.0) Seconds PTT Ratio Sodium (136-145) mmol/L Potassium (3.5-5.1) mmol/L Chloride (98-107) mmol/L Carbon Dioxide (21-32) mmol/L Anion Gap (3-11) BUN (6-23) mg/dl Creatinine (0.6-1.4) mg/dl Est Cr Clr Drug Dosing ml/min Est GFR ( Amer) ml/min Est GFR (Non-Af Amer) ml/min BUN/Creatinine Ratio (10-20) Glucose (70-99(Fasting)) mg/dl POC Glucose (70-99) mg/dl Lactate 1.2 (0.4-2.0) mmol/L Calcium (8.5-10.1) mg/dl Magnesium Cancelled (1.7-2.4) mg/dl Total Bilirubin (0.2-1.0) mg/dl AST (13-39) U/L ALT (7-52) U/L Alkaline Phosphatase (34-104) U/L Total Creatine Kinase (30-223) U/L Troponin I High Sens 17.2 (0-20) pg/ml Total Protein (6.0-8.3) gm/dl Albumin (3.4-5.0) gm/dl Globulin (2.5-4.0) gm/dl Albumin/Globulin Ratio (0.9-2) TSH 1.318 (0.300-4.500) uIu/ml Urine Color Urine Appearance (Clear) Urine pH (4.5-7.5) Ur Specific [place] (1.000-1.030) Urine Protein (Negative) Urine Glucose (UA) (Negative) Urine Ketones (Negative) Urine Blood (Negative) Urine Nitrite (Negative) Urine Bilirubin (Negative) Urine Urobilinogen (Negative) Ur Leukocyte Esterase (Negative) SARS-CoV-2, RNA, NAAT (NEGATIVE) 06/27/22 06/27/22 06/27/22 Range/Units 00:00 01:35 02:05 WBC (4.8-10.8) K/ul RBC (4.63-6.08) M/uL Hgb (14.0-18.0) g/dl Hct (40.1-51.0) % MCV (80.0-100.0) fL MCH (25.0-34.0) pg MCHC (32.0-36.0) g/dL RDW Std Deviation (36.4-46.3) fL RDW Coeff of Kiki (11.5-14.5) % Plt Count (130-400) K/uL MPV (9.4-12.4) fL Immature Gran % (Auto) % Neut % (Auto) % Lymph % (Auto) % [place] % (Auto) % Eos % (Auto) % Baso % (Auto) % Neut # (Auto) (1.4-6.5) K/uL Lymph # (Auto) (1.2-3.4) K/uL [place] # (Auto) (0.24-0.82) K/uL Eos # (Auto) (0-0.50) K/uL Baso # (Auto) (0-0.2) K/uL Immature Gran # (Auto) (0.00-0.02) K/uL PT (9.0-12.0) Seconds INR (0.9-1.1) APTT (21.0-31.0) Seconds PTT Ratio Sodium (136-145) mmol/L Potassium (3.5-5.1) mmol/L Chloride (98-107) mmol/L Carbon Dioxide (21-32) mmol/L Anion Gap (3-11) BUN (6-23) mg/dl Creatinine (0.6-1.4) mg/dl Est Cr Clr Drug Dosing ml/min Est GFR ( Amer) ml/min Est GFR (Non-Af Amer) ml/min BUN/Creatinine Ratio (10-20) Glucose (70-99(Fasting)) mg/dl POC Glucose 137 H (70-99) mg/dl Lactate (0.4-2.0) mmol/L Calcium (8.5-10.1) mg/dl Magnesium (1.7-2.4) mg/dl Total Bilirubin (0.2-1.0) mg/dl AST (13-39) U/L ALT (7-52) U/L Alkaline Phosphatase (34-104) U/L Total Creatine Kinase (30-223) U/L Troponin I High Sens (0-20) pg/ml Total Protein (6.0-8.3) gm/dl Albumin (3.4-5.0) gm/dl Globulin (2.5-4.0) gm/dl Albumin/Globulin Ratio (0.9-2) TSH (0.300-4.500) uIu/ml Urine Color Yellow Urine Appearance Clear (Clear) Urine pH 5.0 (4.5-7.5) Ur Specific [place] 1.017 (1.000-1.030) Urine Protein Negative (Negative) Urine Glucose (UA) Negative (Negative) Urine Ketones 1+ H (Negative) Urine Blood Negative (Negative) Urine Nitrite Negative (Negative) Urine Bilirubin Negative (Negative) Urine Urobilinogen Negative (Negative) Ur Leukocyte Esterase Negative (Negative) SARS-CoV-2, RNA, NAAT NEGATIVE (NEGATIVE) Imaging Data Attestation: I personally reviewed and interpreted this imaging study as follows: My Impression: Chest x-ray interpreted by me negative for infiltrate Radiologist's Impression: Chest X-Ray 06/26/22 22:56 SINGLE VIEW CHEST CLINICAL HISTORY: Sepsis. FINDINGS: An AP, portable, semierect chest radiograph is compared to chest x-ray and chest CT dated 01/26/2021. The examination is degraded by portable technique and apical lordotic positioning. The heart is enlarged. The pulmonary vasculature is not congested. There is elevation of the right hemidiaphragm. The lungs and pleural spaces are clear. No pneumothorax is seen. The bony thorax is grossly intact. IMPRESSION: Cardiomegaly with no acute cardiopulmonary abnormality identified. ACT 112: Negative or not required by law. Electronically signed by: Rommel Rodríguez M.D. 06/27/2022 12:[address] 06/26/22 22:56 CT SCAN OF THE BRAIN WITHOUT IV CONTRAST CLINICAL HISTORY: Trauma. Fall. COMPARISON STUDY: CT of the brain dated 01/26/2021. TECHNIQUE: Unenhanced axial CT scan of the brain is performed from the vertex to the skull base. A dose lowering technique was utilized adhering to the principles of ALARA. FINDINGS: Brain parenchyma: The brain parenchyma is normal in appearance. There is no hemorrhage, mass effect, or evidence of acute territorial ischemia by CT cri teria. Bo-white matter differentiation is preserved. No extra-axial fluid collection is seen. Ventricles, sulci, cisterns: Normal in configuration. Intracranial vasculature: There is atherosclerotic calcification of the cavernous carotid arteries. Calvarium: There is no depressed calvarial fracture. Sinuses and mastoids: The visualized paranasal sinuses are clear. The mastoid air cells are well pneumatized. Orbits: The bony orbits are grossly intact. IMPRESSION: There is no hemorrhage, mass effect, or evidence of acute ter ritorial ischemia by CT criteria. ACT 112: Negative or not required by law. Electronically signed by: Rommel Rodríguez M.D. 06/27/2022 12:[address] 06/26/22 22:56 CT SCAN OF THE LUMBAR SPINE WITHOUT IV CONTRAST CLINICAL HISTORY: Fall. Low back pain. COMPARISON STUDY: Radiographs of lumbar spine dated 06/04/2018. MRI of the lumbar spine dated 07/12/2018. Abdominal CT dated 01/26/2021. TECHNIQUE: CT scan of the lumbar spine is performed from the lower thoracic spine to the sacrum. Images are reviewed in the axial, sagittal, and coronal pl anes. IV contrast was not administered for this examination. A dose lowering technique was utilized adhering to the principles of ALARA. The examination is degraded by motion artifact, as well as by streak artifact from metallic spinal hardware. CT DOSE: 1307.48 mGy.cm FINDINGS: The skeletal structures are osteopenic. Vertebral body height is ma intained throughout the lumbar spine. There is 7 mm of anterolisthesis at L4-L5. Alignment is preserved. There is postoperative change from discectomy at L4-L5 and L5-S1 with laminectomy and posterior fusion at L4-S1. Interpedicular screws are present at all levels. Anterior and lateral marginal osteophytes are seen throughout. There are chronic/healed right transverse process fractures of L2 and L3. There are also age-indeterminate but likely subacute to chronic fractures involving the bilateral transverse processes of L5. The remaining spinous processes appear intact. No lytic or blastic lesion is seen. There is moderate disc space narrowing at L1-L2. The remaining lumbar disc spaces are m aintained. There is no CT evidence of large disc herniation or high-grade central canal stenosis. Degenerative endplate sclerosis is noted at L4-L5 and L5-S1. There are bilateral sacral alar fractures. Fracture crosses midline at S1-S2. The paraspinous soft tissues are normal as visualized. There is advanced atherosclerotic calcification of the abdominal aorta which is normal in caliber. No retroperitoneal lymphadenopathy is seen. IMPRESSION: 1. There are bilateral sacral fractures as detailed above. 2. There are age indeterminant bilateral transverse process fractures of L5, which appear likely subacute to chronic. 3. No additional findings are concerning for acute fracture involving the lumbar spine. 4. Osteopenia with postoperative and spondylotic change as above. ACT 112: Negative or not required by law. Electronically signed by: Rommel Rodríguez M.D. 06/27/2022 12:52 AM ECG Data Attestation: I personally reviewed and interpreted this ECG as follows: Additional Comments: EKG interpreted by me sinus tachycardia rate of 134 poor R wave progression the precordium no obvious ST segment elevation or depression MDM Narrative Medical decision making differential diagnosis near syncope, syncope, mechanical fall, derangement, dehydration, sepsis. Plan is to check labs, sepsis protocol, CAT scan of the brain, CT of the lumbar spine. Impression & Plan Acute dehydration, Hypomagnesemia, Tachycardia, Fall Discharge Plan Visit Data Chief Complaint: Fall ED Provider: Johnny Trinh Discharge Problem: Acute dehydration, Hypomagnesemia, Tachycardia, Fall Patient Disposition: Being Evaluated by Hospitalist Forms Stand Alone Forms: [facility] Prescriptions Prescriptions: No Action gabapentin 400 mg Capsule 400 mg PO TID amlodipine [Norvasc] 10 mg Tablet 10 mg PO QPM metoprolol tartrate 50 mg Tablet 50 mg PO BID pioglitazone [Actos] 30 mg Tablet 30 mg PO QAM lisinopril 40 mg Tablet 40 mg PO HS docusate sodium [DOK] 100 mg Tablet 100 mg PO BID Rx Instructions: take in morning and afternoon ketoconazole 2 % Shampoo 1 applic topical 2XWK Rx Instructions: apply to scalp ipratropium bromide 0.03 % [place],Non-Aerosol 2 spray INTRANASAL QID PRN (Reason: Runny Nose) indapamide 2.5 mg Tablet 2.5 mg PO QPM acetaminophen [Tylenol 8 Hour] 650 mg Tablet Extended Release 1,300 mg PO HS amitriptyline 25 mg Tablet 25 mg PO HS omeprazole 20 mg Capsule,Delayed Release(Dr/Ec) 20 mg PO DAILYBB fluoxetine 20 mg capsule 20 mg PO QAM Qty: 0 0RF Rx Instructions: alternate with 10mg aspirin [Aspirin Low-Strength] 81 mg Tablet,Delayed Release (Dr/Ec) 81 mg PO QAM hydroxyzine HCl 25 mg tablet 50 mg PO HS Rx Instructions: ordered 25 mg tid prn but pt takes 50 routinely at night tizanidine 4 mg Tablet 4 mg PO Q8H PRN (Reason: Muscle Spasm) enoxaparin 100 mg/mL syringe 100 mg subcut Q12 oxycodone 5 mg tablet See Rx Instructions .ROUTE .COMPLEX PRN (Reason: Pain) Rx Instructions: may take 1 tablet every 4 hours as needed for moderate pain may also take 2 tabets every 4 hours as needed for moderate pain celecoxib 200 mg capsule 200 mg PO DAILY PRN (Reason: Pain) metaxalone 400 mg tablet 400 mg PO TID PRN (Reason: Muscle Spasm) rosuvastatin 10 mg tablet 10 mg PO HS fluoxetine 10 mg capsule 10 mg PO Q OTHER DAY Rx Instructions: alternate with 20mg baclofen 20 mg tablet 80 mg PO HS Caltrate 600-D Plus Minerals 600 mg calcium- 800 unit-50 mg tablet 1 tab PO BID acetaminophen 325 mg Tablet 650 mg PO TID PRN (Reason: Pain) metformin 500 mg tablet extended release 24 hr 500 mg PO BID Rx Instructions: ordered 1000mg daily but patient splits up to bid nystatin 100,000 unit/gram Powder 1 applic TOPICAL HS PRN (Reason: testicle sweat) Rx Instructions: ordered routine but patient states he only uses when he has "sweaty balls" Victoza 3-Toni 0.6 mg/0.1 mL (18 mg/3 mL) pen injector 1.8 mg SUBCUT QAM ondansetron HCl 4 mg Tablet 4 mg PO Q6H PRN (Reason: Nausea) ketorolac 60 mg/2 mL Solution 0 mg IM .EVERY 48 HOURS PRN (Reason: Pain) Rx Instructions: unknown dose melatonin 5 mg Tablet 40 mg PO HS Rx Instructions: orderd 10mg but patient states he takes 8 tablets = 40mg cholecalciferol (vitamin D3) [Vitamin D3] 50 mcg (2,000 unit) Capsule 50 mcg PO DAILY amoxicillin 500 mg capsule 2,000 mg PO ONCE PRN (Reason: 1 hours prior dental appt) azelastine 137 mcg (0.1 %) Aerosol,[place] 2 spray INTRANASAL BID PRN (Reason: Congestion) Rx Instructions: administer into each nostril Referrals Referrals: Rich Otoole MD [Primary Care Provider] -
[2022-06-26 23:19] LABS: Albumin Globulin Ratio 1.3 (0.9-2); Albumin Level 4.4 gm/dl (3.4-5.0); BUN Creatinine Ratio 34.4 (10-20); Bilirubin,Total 0.8 mg/dl (0.2-1.0); Calcium 9.8 mg/dl (8.5-10.1); Creatinine Clr Calc Pharmacy 69.3 ml/min; Est GFR (African American) 67.6 ml/min; Est GFR (Non-African American) 58.3 ml/min; Globulin 3.3 gm/dl (2.5-4.0); Potassium 5.6 mmol/L (3.5-5.1); Total Protein 7.7 gm/dl (6.0-8.3)
[2022-06-26] MEDS ORDERED: SODIUM CHLORIDE 0.9% 1000ML 1,000 ML IV ONE (23:20)
[2022-06-26 23:27] LABS: Partial Thromboplastin Time 28.5 Seconds (21.0-31.0)
[2022-06-26 23:34] LABS: Magnesium 1.5 mg/dl (1.7-2.4)
--- NOTE | 2022-06-27 00:14 | XRay Report ---
SINGLE VIEW CHEST CLINICAL HISTORY: Sepsis. FINDINGS: An AP, portable, semierect chest radiograph is compared to chest x-ray and chest CT dated . The examination is degraded by portable technique and apical lordotic positioning. The hear t is enlarged. The pulmonary vasculature is not congested. There is elevation of the right hemidiaphr agm. The lungs and pleural spaces are clear. No pneumothorax is seen. The bony thorax is grossly inta ct. IMPRESSION: Cardiomegaly with no acute cardiopulmonary abnormality identified. ACT 112: Negative or not required by law. Electronically signed by: Rommel Rodríguez M.D. 06/27/2022 12:12 AM
--- NOTE | 2022-06-27 00:24 | CT Scan Report ---
CT SCAN OF THE BRAIN WITHOUT IV CONTRAST CLINICAL HISTORY: Trauma. Fall. COMPARISON STUDY: CT of the brain dated 01/26/2021. TECHNIQUE: Unenhanced axial CT scan of the brain is performed from the vertex to the skull base. A d ose lowering technique was utilized adhering to the principles of ALARA. FINDINGS: Brain parenchyma: The brain parenchyma is normal in appearance. There is no hemorrhage, mass effect, or evidence of acute territorial ischemia by CT criteria. Bo-white matter differentiation is preser sofía. No extra-axial fluid collection is seen. Ventricles, sulci, cisterns: Normal in configuration. Intracranial vasculature: There is atherosclerotic calcification of the cavernous carotid arteries. Calvarium: There is no depressed calvarial fracture. Sinuses and mastoids: The visualized paranasal sinuses are clear. The mastoid air cells are well pneu matized. Orbits: The bony orbits are grossly intact. IMPRESSION: There is no hemorrhage, mass effect, or evidence of acute territorial ischemia by CT carlito coy. ACT 112: Negative or not required by law. Electronically signed by: Rommel Rodríguez M.D. 06/27/2022 12:22 AM
[2022-06-27] MEDS ORDERED: fentaNYL citrate 100 MCG/2 ML VIAL IV STA (00:28)
[2022-06-27] MEDS ORDERED: MAGNESIUM SULFATE / D5W 1 GM/100 ML BAG IV STA ×2 (00:51→02:05)
--- NOTE | 2022-06-27 00:55 | CT Scan Report ---
CT SCAN OF THE LUMBAR SPINE WITHOUT IV CONTRAST CLINICAL HISTORY: Fall. Low back pain. COMPARISON STUDY: Radiographs of lumbar spine dated 06/04/2018. MRI of the lumbar spine dated 8. Abdominal CT dated 01/26/2021. TECHNIQUE: CT scan of the lumbar spine is performed from the lower thoracic spine to the sacrum. Nya ges are reviewed in the axial, sagittal, and coronal planes. IV contrast was not administered for thi s examination. A dose lowering technique was utilized adhering to the principles of ALARA. The exami nation is degraded by motion artifact, as well as by streak artifact from metallic spinal hardware. CT DOSE: 1307.48 mGy.cm FINDINGS: The skeletal structures are osteopenic. Vertebral body height is maintained throughout the lumbar spine. There is 7 mm of anterolisthesis at L4-L5. Alignment is preserved. There is postoperati ve change from discectomy at L4-L5 and L5-S1 with laminectomy and posterior fusion at L4-S1. Interped icular screws are present at all levels. Anterior and lateral marginal osteophytes are seen throughou t. There are chronic/healed right transverse process fractures of L2 and L3. There are also age-indet erminate but likely subacute to chronic fractures involving the bilateral transverse processes of L5. The remaining spinous processes appear intact. No lytic or blastic lesion is seen. There is moderate disc space narrowing at L1-L2. The remaining lumbar disc spaces are maintained. There is no CT evide nce of large disc herniation or high-grade central canal stenosis. Degenerative endplate sclerosis is noted at L4-L5 and L5-S1. There are bilateral sacral alar fractures. Fracture crosses midline at S1- S2. The paraspinous soft tissues are normal as visualized. There is advanced atherosclerotic calcific ation of the abdominal aorta which is normal in caliber. No retroperitoneal lymphadenopathy is seen. IMPRESSION: 1. There are bilateral sacral fractures as detailed above. 2. There are age indeterminant bilateral transverse process fractures of L5, which appear likely suba cute to chronic. 3. No additional findings are concerning for acute fracture involving the lumbar spine. 4. Osteopenia with postoperative and spondylotic change as above. ACT 112: Negative or not required by law. Electronically signed by: Rommel Rodríguez M.D. 06/27/2022 12:52 AM
[2022-06-27] MEDS ORDERED: SODIUM CHLORIDE 0.9% 1000ML 1,000 ML IV ONE (01:21)
[2022-06-27] MEDS ORDERED: ACETAMINOPHEN 500 MG TAB PO STA (01:21)
[2022-06-27] MEDS ORDERED: CALCIUM GLUCONATE 1,000 MG/60 ML BAG IV STA (01:42)
[2022-06-27] MEDS ORDERED: METOPROLOL TARTRATE 1 MG/ML VIAL IV STA ×2 (01:45→05:55)
[2022-06-27 01:57] LABS: Appearance Urine Clear (Clear); Bilirubin Urine Negative (Negative); Blood Urine Negative (Negative); Color Urine Yellow; Glucose Urine UA Negative (Negative); Ketones Urine 1+ (Negative); Leukocyte Esterase Urine Negative (Negative); Nitrite Urine Negative (Negative); Protein Urine Negative (Negative); Specific Gravity Urine 1.017 (1.000-1.030); Urobilinogen Urine Negative (Negative)
[2022-06-27] MEDS ORDERED: SODIUM CHLORIDE 0.9% 1000ML 1,000 ML IV STA (02:05)
--- NOTE | 2022-06-27 03:48 | History & Physical Report ---
Date of Service June 27, 2022 Assessment & Plan (1) Rhabdomyolysis: Plan: Traumatic rhabdomyolysis secondary to fall Narcotics/multiple neuropsychotropic meds contributory hx chronic pain/polysubstance abuse/drug overdose as per records Hyperkalemia secondary to rhabdomyolysis Home medications contributory Worsening back pain with radiculopathy symptoms post fall Recent back surgery HTN, elevated secondary to discomfort hyperlipidemia on statin Rx DM2 on oral medications, well-controlled as of recent hemoglobin A1c of 6.6 last June 21 past tobacco abuse hx ichthyosis congenita chronic pain, polysubstance abuse/drug overdose as per records, ADD/anxiety/mood disorder, at baseline NARINDER n BIPAP history DVT on Coumadin status post IVC filter placement, INR is subtherapeutic currently on weight-based Lovenox Coumadin bridge Rx postop Postop anemia past tobacco abuse. polypharmacy withdrawal/drug interaction (recurrent admissions), hx chronic pain/ADD/polysubstance abuse as per records Medical telemetry given tachycardia Monitor CPK response to IVF Appropriate to hold home statin for now given rhabdomyolysis Hold home diuretics until patient euvolemic Hold home BRENT inhibitor until hyperkalemia resolved Facilitate home beta-carola Judicious narcotic use given history of drug overdose and myoclonic jerks MRI lumbar spine, orthopedic spine consult Re: Back pain with radiculopathy post fall Basal bolus insulin, ISS BG goal 1 10-1 40, carb count coverage PT OT eval once cleared by Orthopedics DVT prophylaxis. SCDs for now until patient seen by orthopedics Full code Text document was generated using embraase voice recognition software. It may contain grammatical or spelling errors. Kindly contact undersigned for clarification of any documentation item in question. History of Present Illness Chief Complaint: Fall, uncontrolled back pain, unable to get up Primary Care Provider: Rich Otoole MD History obtained from patient and records. Medical history is significant for HTN, hyperlipidemia, DM2 on oral medications, past tobacco abuse, IBS as per records, ichthyosis congenita as per records, chronic pain, polysubstance abuse/drug overdose as per records, ADD/anxiety/mood disorder, NARINDER n BIPAP, past history osteomyelitis, history DVT on Coumadin status post IVC filter placement, chronic anemia (baseline hemoglobin of 12), recent back surgery, past tobacco abuse. Last confinement April 2020 left femoral fracture secondary to fall secondary to encephalopathy status post surgery.. Patient also found to have LLE DVT during confinement. Subsequent IVC filter placed. Patient discharged on Coumadin Patient confined at [facility] from June 16 to 2021 under Orthopedics spine service for progressive postop spondylolisthesis at L5-S1 following L4-L5 decompression fusion surgery last July 2021. Preop MRI from January 2022 as follows: 1. Posterior fusion and decompression at the L4-5 level. 2. STIR hyperintensity in the inferior aspect of L5 associated with linear band of hypointense signal which appears to correspond to an area of sclerosis seen on the recent CT study. This may reflect progressive discogenic endplate changes, although fracture could appear similar, particularly given findings on recent CT in the posterior elements at L5. 3. Right central extrusion at L5-S1 with probable mass effect on the S1 nerve root in the subarticular recess. 4. Left greater than right foraminal stenosis at L4-5 and severe bilateral foraminal narrowing at L5-S1. Patient underwent L5-S1 laminectomy/posterior spine fusion, hardware removal and L5-S1 PLIF, L4-S1 instrumentation during recent [facility] confinement. Postop LS XR showed Interval revision of the posterior lumbosacral fusion and laminectomy. Improved L5 on S1 anterolisthesis. Unchanged L4-L5 anterolisthesis. Patient discharged home last week on weight-based Lovenox q12h - Coumadin Rx tx. Hemoglobin on discharge was 11. Worsening low back pain the last few days which led patient to ask for extra narcotic medication from [facility] surgeon. Patient prescribed additional oxycodone. Patient claims he was not taking more than 5 tablets of oxycodone a day. Increased uncontrollable twitching from pain as per patient Yesterday afternoon, patient legs just gave out causing him to fall on his back. Back pain going down the left leg. Unable to get up. Denies incontinence symptoms. No chest pain, no SOB, no head trauma, no LOC. Patient was on the ground for about 4 hours before somebody from outside his home held his yelling. Patient brought to the ER for evaluation. MEDICAL HISTORY: As above. SURGERIES: Carpal tunnel, orthopedic surgeries, IVC filter placement, right hand surgery, left elbow surgery, laminectomy, left knee surgery, spine fixation removal, femoral fracture surgery FAMILY HISTORY: heart disease, prostate cancer PERSONAL SOCIAL HISTORY: Past tobacco abuse. Occasional alcohol intake, disabled. Allergies Allergy/AdvReac Type Severity Reaction Status Date / Time simvastatin Allergy Unknown MUSCLE Verified 06/27/22 02:31 WEAKNESS,TINGLING haloperidol [From Haldol] AdvReac Unknown Unknown Verified 06/27/22 02:31 Home Medications Medication Instructions Recorded Confirmed Type amlodipine 10 mg tablet (Norvasc) 10 mg PO QPM 11/03/18 06/27/22 History docusate sodium 100 mg tablet (DOK) 100 mg PO BID 11/03/18 06/27/22 History gabapentin 400 mg capsule 400 mg PO TID 11/03/18 06/27/22 History indapamide 2.5 mg tablet 2.5 mg PO QPM 11/03/18 06/27/22 History ipratropium bromide 21 mcg (0.03 2 spray intranasal QID PRN Runny 11/03/18 06/27/22 History %) nasal spray Nose ketoconazole 2 % shampoo 1 applic topical 2XWK 11/03/18 06/27/22 History lisinopril 40 mg tablet 40 mg PO HS 11/03/18 06/27/22 History metoprolol tartrate 50 mg tablet 50 mg PO BID 11/03/18 06/27/22 History pioglitazone 30 mg tablet (Actos) 30 mg PO QAM 11/03/18 06/27/22 History acetaminophen 650 mg 1,300 mg PO HS 11/29/19 06/27/22 History tablet,extended release (Tylenol 8 Hour) amitriptyline 25 mg tablet 25 mg PO HS 05/19/20 06/27/22 History omeprazole 20 mg capsule,delayed 20 mg PO DAILYBB 05/19/20 06/27/22 History release fluoxetine 20 mg capsule 20 mg PO QAM #0 caps 05/29/20 06/27/22 Rx aspirin 81 mg tablet,delayed 81 mg PO QAM 01/26/21 06/27/22 History release hydroxyzine HCl 25 mg tablet 50 mg PO HS 01/26/21 06/27/22 History acetaminophen 325 mg tablet 650 mg PO TID PRN Pain 06/27/22 06/27/22 History amoxicillin 500 mg capsule 2,000 mg PO ONCE PRN 1 hours prior 06/27/22 06/27/22 History dental appt azelastine 137 mcg (0.1 %) nasal 2 spray intranasal BID PRN 06/27/22 06/27/22 History spray aerosol Congestion baclofen 20 mg tablet 80 mg PO HS 06/27/22 06/27/22 History calcium 600 mg-D3 800 unit-mag11 1 tab PO BID 06/27/22 06/27/22 History 50 qr-yhqw-bffvvo-kindra-s.borat tablet (Caltrate 600-D Plus Minerals) celecoxib 200 mg capsule 200 mg PO DAILY PRN Pain 06/27/22 06/27/22 History cholecalciferol (vitamin D3) 50 50 mcg PO DAILY 06/27/22 06/27/22 History mcg (2,000 unit) capsule (Vitamin D3) enoxaparin 100 mg/mL subcutaneous 100 mg subcut Q12 06/27/22 06/27/22 History syringe fluoxetine 10 mg capsule 10 mg PO Q OTHER DAY 06/27/22 06/27/22 History ketorolac 60 mg/2 mL intramuscular 0 mg IM .EVERY 48 HOURS PRN Pain 06/27/22 06/27/22 History solution liraglutide 0.6 mg/0.1 mL (18 mg/3 1.8 mg subcut QAM 06/27/22 06/27/22 History mL) subcutaneous pen injector (Victoza 3-Toni) melatonin 5 mg tablet 40 mg PO HS 06/27/22 06/27/22 History metaxalone 400 mg tablet 400 mg PO TID PRN Muscle Spasm 06/27/22 06/27/22 History metformin 500 mg tablet,extended 500 mg PO BID 06/27/22 06/27/22 History release 24 hr nystatin 100,000 unit/gram topical 1 applic topical HS PRN testicle 06/27/22 06/27/22 History powder sweat ondansetron HCl 4 mg tablet 4 mg PO Q6H PRN Nausea 06/27/22 06/27/22 History oxycodone 5 mg tablet See Rx Instructions .Route 06/27/22 06/27/22 History .COMPLEX PRN Pain rosuvastatin 10 mg tablet 10 mg PO HS 06/27/22 06/27/22 History tizanidine 4 mg tablet 4 mg PO Q8H PRN Muscle Spasm 06/27/22 06/27/22 History Past Med/Surg History Medical History (Updated 08/28/22 @ 10:16 by Hiram Portillo DO) RUDY (acute kidney injury) Anemia Benzodiazepine abuse Chronic pain Deep vein thrombosis Delirium Diabetic foot ulcer associated with type 2 diabetes mellitus Diverticulosis DM type 2 (diabetes mellitus, type 2) Dyslipidemia Encephalopathy Femur fracture "S/P repair" History of septic arthritis Hypertension Mood disorder Opiate abuse, continuous NARINDER on CPAP Psychosis Raynaud disease Rhabdomyolysis CPK on admission elevated 1169 Received IVF CPK 859 Surgical History H/O hand surgery History of carpal tunnel surgery S/P left knee arthroscopy Status post total knee replacement, right Family History Other Family history non-contributory Social History Smoking Status: Never smoker Second Hand Exposure: No; Do You Dip or Chew Tobacco: No; Tobacco Cessation Education Requested by Patient: No Hx Alcohol Use: Yes Alcohol type: beer and wine Hx Substance Use: No Preferred Language: French Communication Ability: Effective Cab Starter Required: No Beliefs That Will Affect Care: None Current Living Situation: Alone Current Living Situation Comment: home health visits 5 days/40 hrs wk Other Information That Helps Us Care for You: No Feels Safe at Home: Yes Safety Concerns: Feels Safe At This Time Assistive Devices: Crutches Assistive Devices Comment: using cruthces for the past 4 years Review of Systems Review of Systems: As per HPI, all other systems reviewed and negative Physical Exam Physical Exam: GENERAL: Uncomfortable, obese, no respiratory distress, episodic myoclonic jerks SKIN: Pallor, warm HEENT: pale palpebral conjunctivae, dry buccal mucosa NECK : Supple, short neck, no tenderness CHEST : Decreased breath sounds, no tenderness HEART : Tachycardic, no obvious murmurs ABDOMEN: Some distention, nontender BACK : Low back tenderness, positive SLR bilateral EXTREMITIES : Minimal LE swelling without tenderness, no other conspicuous deformities noted NEUROLOGIC : Coherent, no facial asymmetry, episodic myoclonic jerks, no other gross focality Results & Data Results & Data ([facility]) Vital Signs (Past 12 Hours) Vital Signs Temp Pulse Pulse Resp BP BP Pulse Ox 06/27/22 03:41 120 H 20 97 06/27/22 03:06 120 H 20 143/111 H 97 06/27/22 02:41 129 H 148/92 H 06/27/22 02:30 130 H 19 148/92 H 96 06/27/22 01:27 97 06/27/22 00:28 37.5 C 137 H 22 95 06/27/22 00:28 96 06/26/22 23:48 130 H 22 150/90 H 94 06/26/22 22:48 95 06/26/22 22:48 89 L 06/26/22 22:29 37.8 C H 133 H 20 93 O2 Del Method O2 Flow Rate 06/27/22 03:41 Room Air 06/27/22 03:06 Nasal Cannula 06/27/22 02:41 06/27/22 02:30 Nasal Cannula 2 06/27/22 01:27 Nasal Cannula 2 06/27/22 00:28 Room Air 06/27/22 00:28 Nasal Cannula 2 06/26/22 23:48 Nasal Cannula 2 06/26/22 22:48 Nasal Cannula 2 06/26/22 22:48 Nasal Cannula 2 06/26/22 22:29 Room Air Laboratory Results Laboratory Results WBC 8.94 K/ul (4.8-10.8) 06/26/22 22:44 RBC 3.93 M/uL (4.63-6.08) L 06/26/22 22:44 Hgb 10.6 g/dl (14.0-18.0) L 06/26/22 22:44 Hct 33.1 % (40.1-51.0) L 06/26/22 22:44 MCV 84.2 fL (80.0-100.0) 06/26/22 22:44 MCH 27.0 pg (25.0-34.0) 06/26/22 22:44 MCHC 32.0 g/dL (32.0-36.0) 06/26/22 22:44 RDW Std Deviation 43.9 fL (36.4-46.3) 06/26/22 22:44 RDW Coeff of Kiki 14.3 % (11.5-14.5) 06/26/22 22:44 Plt Count 218 K/uL (130-400) 06/26/22 22:44 MPV 10.9 fL (9.4-12.4) 06/26/22 22:44 Immature Gran % (Auto) 0.8 % 06/26/22 22:44 Neut % (Auto) 85.6 % 06/26/22 22:44 Lymph % (Auto) 5.5 % 06/26/22 22:44 Hidalgo % (Auto) 7.9 % 06/26/22 22:44 Eos % (Auto) 0.1 % 06/26/22 22:44 Baso % (Auto) 0.1 % 06/26/22 22:44 Neut # (Auto) 7.65 K/uL (1.4-6.5) H 06/26/22 22:44 Lymph # (Auto) 0.49 K/uL (1.2-3.4) L 06/26/22 22:44 Hidalgo # (Auto) 0.71 K/uL (0.24-0.82) 06/26/22 22:44 Eos # (Auto) 0.01 K/uL (0-0.50) 06/26/22:44 Baso # (Auto) 0.01 K/uL (0-0.2) 06/26/22 22:44 Immature Gran # (Auto) 0.07 K/uL (0.00-0.02) H 06/26/22 22:44 PT 11.0 Seconds (9.0-12.0) 06/26/22 22:44 INR 1.0 (0.9-1.1) 06/26/22 22:44 APTT 28.5 Seconds (21.0-31.0) 06/26/22 22:44 PTT Ratio 1.0 06/26/22 22:44 Sodium 139 mmol/L (136-145) 06/26/22 22:44 Potassium 5.6 mmol/L (3.5-5.1) H 06/26/22 22:44 Chloride 104 mmol/L (98-107) 06/26/22 22:44 Carbon Dioxide 25 mmol/L (21-32) 06/26/22 22:44 Anion Gap 10 (3-11) 06/26/22 22:44 BUN 45 mg/dl (6-23) H 06/26/22 22:44 Creatinine 1.31 mg/dl (0.6-1.4) 08/27/22 22:44 Est Cr Clr Drug Dosing 69.3 ml/min 06/26/22 22:44 Est GFR ( Amer) 67.6 ml/min 06/26/22 22:44 Est GFR (Non-Af Amer) 58.3 ml/min 06/26/22 22:44 BUN/Creatinine Ratio 34.4 (10-20) H 06/26/22 22:44 Glucose 147 mg/dl (70-99(Fasting)) H 06/26/22 22:44 POC Glucose 137 mg/dl (70-99) H 06/27/22 02:05 Lactate 1.2 mmol/L (0.4-2.0) 06/26/22 23:23 Calcium 9.8 mg/dl (8.5-10.1) 06/26/22 22:44 Magnesium 1.5 mg/dl (1.7-2.4) L 06/26/22 22:44 Magnesium Cancelled 06/26/22 22:44 Total Bilirubin 0.8 mg/dl (0.2-1.0) 06/26/22 22:44 AST 31 U/L (13-39) 06/26/22 22:44 ALT 20 U/L (7-52) 06/26/22 22:44 Alkaline Phosphatase 135 U/L (34-104) H 06/26/22 22:44 Total Creatine Kinase 565 U/L (30-223) H 06/26/22 22:44 Troponin I High Sens 17.2 pg/ml (0-20) 06/26/22 22:44 Total Protein 7.7 gm/dl (6.0-8.3) 06/26/22 22:44 Albumin 4.4 gm/dl (3.4-5.0) 06/26/22 22:44 Globulin 3.3 gm/dl (2.5-4.0) 06/26/22 22:44 Albumin/Globulin Ratio 1.3 (0.9-2) 06/26/22 22:44 TSH 1.318 uIu/ml (0.300-4.500) 06/26/22 23:29 Urine Color Yellow 06/27/22 01:35 Urine Appearance Clear (Clear) 06/27/22 01:35 Urine pH 5.0 (4.5-7.5) 06/27/22 01:35 Ur Specific Farrell 1.017 (1.000-1.030) 06/27/22 01:35 Urine Protein Negative (Negative) 06/27/22 01:35 Urine Glucose (UA) Negative (Negative) 06/27/22 01:35 Urine Ketones 1+ (Negative) H 06/27/22 01:35 Urine Blood Negative (Negative) 06/27/22 01:35 Urine Nitrite Negative (Negative) 06/27/22 01:35 Urine Bilirubin Negative (Negative) 06/27/22 01:35 Urine Urobilinogen Negative (Negative) 06/27/22 01:35 Ur Leukocyte Esterase Negative (Negative) 06/27/22 01:35 SARS-CoV-2, RNA, NAAT NEGATIVE (NEGATIVE) 06/27/22 00:00 Impressions Chest X-Ray 06/26/22 22:56 SINGLE VIEW CHEST CLINICAL HISTORY: Sepsis. FINDINGS: An AP, portable, semierect chest radiograph is compared to chest x-ray and chest CT dated 01/26/2021. The examination is degraded by portable technique and apical lordotic positioning. The heart is enlarged. The pulmonary vasculature is not congested. There is elevation of the right hemidiaphragm. The lungs and pleural spaces are clear. No pneumothorax is seen. The bony thorax is grossly intact. IMPRESSION: Cardiomegaly with no acute cardiopulmonary abnormality identified. ACT 112: Negative or not required by law. Electronically signed by: Rommel Rodríguez M.D. 06/27/2022 12:[address] 06/26/22 22:56 CT SCAN OF THE BRAIN WITHOUT IV CONTRAST CLINICAL HISTORY: Trauma. Fall. COMPARISON STUDY: CT of the brain dated 01/26/2021. TECHNIQUE: Unenhanced axial CT scan of the brain is performed from the vertex to the skull base. A dose lowering technique was utilized adhering to the principles of ALARA. FINDINGS: Brain parenchyma: The brain parenchyma is normal in appearance. There is no hemorrhage, mass effect, or evidence of acute territorial ischemia by CT criteria. Bo-white matter differentiation is preserved. No extra-axial fluid collection is seen. Ventricles, sulci, cisterns: Normal in configuration. Intracranial vasculature: There is atherosclerotic calcification of the cavernous carotid arteries. Calvarium: There is no depressed calvarial fracture. Sinuses and mastoids: The visualized paranasal sinuses are clear. The mastoid air cells are well pneumatized. Orbits: The bony orbits are grossly intact. IMPRESSION: There is no hemorrhage, mass effect, or evidence of acute territorial ischemia by CT criteria. ACT 112: Negative or not required by law. Electronically signed by: Rommel Rodríguez M.D. 06/27/2022 12:[address] 06/26/22 22:56 CT SCAN OF THE LUMBAR SPINE WITHOUT IV CONTRAST CLINICAL HISTORY: Fall. Low back pain. COMPARISON STUDY: Radiographs of lumbar spine dated 06/04/2018. MRI of the lumbar spine dated 07/12/2018. Abdominal CT dated 01/26/2021. TECHNIQUE: CT scan of the lumbar spine is performed from the lower thoracic spine to the sacrum. Images are reviewed in the axial, sagittal, and coronal planes. IV contrast was not administered for this examination. A dose lowering technique was utilized adhering to the principles of ALARA. The examination is degraded by motion artifact, as well as by streak artifact from metallic spinal hardware. CT DOSE: 1307.48 mGy.cm FINDINGS: The skeletal structures are osteopenic. Vertebral body height is maintained throughout the lumbar spine. There is 7 mm of anterolisthesis at L4- L5. Alignment is preserved. There is postoperative change from discectomy at L4- L5 and L5-S1 with laminectomy and posterior fusion at L4-S1. Interpedicular screws are present at all levels. Anterior and lateral marginal osteophytes are seen throughout. There are chronic/healed right transverse process fractures of L2 and L3. There are also age-indeterminate but likely subacute to chronic fractures involving the bilateral transverse processes of L5. The remaining spinous processes appear intact. No lytic or blastic lesion is seen. There is moderate disc space narrowing at L1-L2. The remaining lumbar disc spaces are maintained. There is no CT evidence of large disc herniation or high-grade central canal stenosis. Degenerative endplate sclerosis is noted at L4-L5 and L5-S1. There are bilateral sacral alar fractures. Fracture crosses midline at S1-S2. The paraspinous soft tissues are normal as visualized. There is advanced atherosclerotic calcification of the abdominal aorta which is normal in caliber. No retroperitoneal lymphadenopathy is seen. IMPRESSION: 1. There are bilateral sacral fractures as detailed above. 2. There are age indeterminant bilateral transverse process fractures of L5, which appear likely subacute to chronic. 3. No additional findings are concerning for acute fracture involving the lumbar spine. 4. Osteopenia with postoperative and spondylotic change as above. ACT 112: Negative or not required by law. Electronically signed by: Rommel Rodríguez M.D. 06/27/2022 12:52 AM Diagnostic Findings EKG as per my interpretation :Rate 100, NSR, normal axis, no ischemia
[2022-06-27] MEDS ORDERED: LIDOCAINE 5% 1 PATCH TD STA (03:52)
[2022-06-27] MEDS ORDERED: KETOROLAC TROMETHAMINE 15 MG/ML VIAL IV ONE ×2 (03:52→06:45)
[2022-06-27] MEDS ORDERED: PROMETHAZINE HCL 12.5 MG in SODIUM CHLORIDE 0.9% 50 ML IV PRN (04:02)
[2022-06-27] MEDS ORDERED: oxyCODONE HCL IR 5 MG TAB (IMMEDIATE RELEASE) PO STA (04:09)
[2022-06-27 04:54] LABS: Basophils # (auto) 0.01 K/uL (0-0.2); Basophils % (auto) 0.2 %; Eosinophils # (auto) 0.02 K/uL (0-0.50); Eosinophils % (auto) 0.3 %; Hemoglobin 9.9 g/dl (14.0-18.0); Immature Granulocytes # (auto) 0.06 K/uL (0.00-0.02); Lymphocytes # (auto) 0.94 K/uL (1.2-3.4); Lymphocytes % (auto) 15.7 %; Mean Corpuscular Hemoglobin 27.6 pg (25.0-34.0); Mean Corpuscular Volume 83.6 fL (80.0-100.0); Mean Platelet Volume 10.6 fL (9.4-12.4); Monocytes # (auto) 0.61 K/uL (0.24-0.82); Monocytes % (auto) 10.2 %; Neutrophils # (auto) 4.34 K/uL (1.4-6.5); Neutrophils % (auto) 72.6 %; Platelet Count 211 K/uL (130-400); RDW Coefficient of Variation 14.4 % (11.5-14.5); RDW Standard Deviation 44.1 fL (36.4-46.3); Red Blood Count 3.59 M/uL (4.63-6.08); White Blood Count 5.98 K/ul (4.8-10.8)
[2022-06-27 05:05] LABS: Partial Thromboplastin Ratio 1.1; Partial Thromboplastin Time 30.9 Seconds (21.0-31.0)
[2022-06-27 05:28] LABS: BUN Creatinine Ratio 31.5 (10-20); Calcium 9.1 mg/dl (8.5-10.1); Est GFR (African American) 85.4 ml/min; Est GFR (Non-African American) 73.7 ml/min; Potassium 4.4 mmol/L (3.5-5.1)
[2022-06-27] MEDS ORDERED: CARBOHYDRATES FOR HYPOGLYCEMIA PO PRN (06:18)
[2022-06-27] MEDS ORDERED: GLUCOSE 10 TAB/TUBE PO PRN (06:18)
[2022-06-27] MEDS ORDERED: GLUCAGON FOR INJ 1 MG VIAL SQ PRN (06:18)
[2022-06-27] MEDS ORDERED: DEXTROSE 50% 50 ML SYRINGE IV PRN (06:18)
[2022-06-27] MEDS ORDERED: tiZANidine HCL 4 MG TABLET PO PRN (06:18)
[2022-06-27] MEDS ORDERED: GLUCOSE 40% GEL 15 GM TUBE PO PRN (06:18)
[2022-06-27] MEDS ORDERED: MELATONIN 3 MG TAB PO PRN (06:25)
[2022-06-27 06:53] LABS: Amphetamines+Metham, Urine Neg (Neg); Barbiturates, Urine Neg (Neg); Benzodiazepine, Urine Neg (Neg); Cocaine, Urine Neg (Neg); MDMA (Ecstacy), Urine Neg (Neg); Methadone, Urine Neg (Neg); Opiate, Urine Neg (Neg); Phencyclidine, Urine Neg (Neg)
[2022-06-27] MEDS: METOPROLOL TARTRATE 50 MG TAB PO SCH ×2 (08:57→20:37)
[2022-06-27] MEDS: LANTUS PER UNIT CHARGE SQ SCH (08:57)
[2022-06-27] MEDS: INSULIN ASPART PER UNIT SC SCH ×4 (08:57→20:30)
[2022-06-27] MEDS: DOCUSATE SODIUM 100 MG CAP PO SCH ×2 (08:58→20:36)
[2022-06-27] MEDS: PANTOprazole 40 MG TAB PO SCH (08:58)
[2022-06-27] MEDS: FLUoxetine HCL 20 MG CAP PO SCH (08:58)
[2022-06-27] MEDS: GABAPENTIN 400 MG CAP PO SCH ×3 (08:58→20:37)
--- NOTE | 2022-06-27 10:18 | Orthopedic Consultation ---
Date of Consultation June 27, 2022 Assessment & Plan (1) Sacral fracture: Assessment bilateral sacral ala fracture with displacement across the S1-S2 levels. Plan had a discussion with this patient reviewing his CAT scans findings and clinical course. The fall combined with the adjacent level fusion mass placed tremendous stress across the sacrum. This contributed to the fracture. At this point I recommend bedrest DVT prophylaxis. Patient is requested notification to a surgeon at [facility]. He may need to be transferred there for further care. Ultimately he might require extension of the construct to the pelvis to provide stabilization across the fracture and to begin mobilization. Total may be able to contact [facility] Tuesday. History of Present Illness Reason for Consultation: Back pain status post fall Attending Physician: Jose Martinez MD History of Present Illness This is a 61-year-old male that presents emergency room yesterday after a fall at home. He is approximately 2 weeks status post lumbar decompression fusion at [facility]. He states that he was doing well at home until his fall. He now is comfortable while lying supine but notes leg pain when he tries to sit up or stand. Allergies Allergy/AdvReac Type Severity Reaction Status Date / Time simvastatin Allergy Unknown MUSCLE Verified 06/27/22 02:31 WEAKNESS,TINGLING haloperidol [From Haldol] AdvReac Unknown Unknown Verified 06/27/22 02:31 Home Medications Medication Instructions Recorded Confirmed Type amlodipine 10 mg tablet (Norvasc) 10 mg PO QPM 11/03/18 06/27/22 History docusate sodium 100 mg tablet (DOK) 100 mg PO BID 11/03/18 06/27/22 History gabapentin 400 mg capsule 400 mg PO TID 11/03/18 06/27/22 History indapamide 2.5 mg tablet 2.5 mg PO QPM 11/03/18 06/27/22 History ipratropium bromide 21 mcg (0.03 2 spray intranasal QID PRN Runny 11/03/18 06/27/22 History %) nasal spray Nose ketoconazole 2 % shampoo 1 applic topical 2XWK 11/03/18 06/27/22 History lisinopril 40 mg tablet 40 mg PO HS 11/03/18 06/27/22 History metoprolol tartrate 50 mg tablet 50 mg PO BID 11/03/18 06/27/22 History pioglitazone 30 mg tablet (Actos) 30 mg PO QAM 11/03/18 06/27/22 History acetaminophen 650 mg 1,300 mg PO HS 11/29/19 06/27/22 History tablet,extended release (Tylenol 8 Hour) amitriptyline 25 mg tablet 25 mg PO HS 05/19/20 06/27/22 History omeprazole 20 mg capsule,delayed 20 mg PO DAILYBB 05/19/20 06/27/22 History release fluoxetine 20 mg capsule 20 mg PO QAM #0 caps 05/29/20 06/27/22 Rx aspirin 81 mg tablet,delayed 81 mg PO QAM 01/26/21 06/27/22 History release hydroxyzine HCl 25 mg tablet 50 mg PO HS 01/26/21 06/27/22 History acetaminophen 325 mg tablet 650 mg PO TID PRN Pain 06/27/22 06/27/22 History amoxicillin 500 mg capsule 2,000 mg PO ONCE PRN 1 hours prior 06/27/22 06/27/22 History dental appt azelastine 137 mcg (0.1 %) nasal 2 spray intranasal BID PRN 06/27/22 06/27/22 History spray aerosol Congestion baclofen 20 mg tablet 80 mg PO HS 06/27/22 06/27/22 History calcium 600 mg-D3 800 unit-mag11 1 tab PO BID 06/27/22 06/27/22 History 50 zk-dkdo-yjwrej-kindra-s.borat tablet (Caltrate 600-D Plus Minerals) celecoxib 200 mg capsule 200 mg PO DAILY PRN Pain 06/27/22 06/27/22 History cholecalciferol (vitamin D3) 50 50 mcg PO DAILY 06/27/22 06/27/22 History mcg (2,000 unit) capsule (Vitamin D3) enoxaparin 100 mg/mL subcutaneous 100 mg subcut Q12 06/27/22 06/27/22 History syringe fluoxetine 10 mg capsule 10 mg PO Q OTHER DAY 06/27/22 06/27/22 History ketorolac 60 mg/2 mL intramuscular 0 mg IM .EVERY 48 HOURS PRN Pain 06/27/22 06/27/22 History solution liraglutide 0.6 mg/0.1 mL (18 mg/3 1.8 mg subcut QAM 06/27/22 06/27/22 History mL) subcutaneous pen injector (Victoza 3-Toni) melatonin 5 mg tablet 40 mg PO HS 06/27/22 06/27/22 History metaxalone 400 mg tablet 400 mg PO TID PRN Muscle Spasm 06/27/22 06/27/22 History metformin 500 mg tablet,extended 500 mg PO BID 06/27/22 06/27/22 History release 24 hr nystatin 100,000 unit/gram topical 1 applic topical HS PRN testicle 06/27/22 06/27/22 History powder sweat ondansetron HCl 4 mg tablet 4 mg PO Q6H PRN Nausea 06/27/22 06/27/22 History oxycodone 5 mg tablet See Rx Instructions .Route 06/27/22 06/27/22 History .COMPLEX PRN Pain rosuvastatin 10 mg tablet 10 mg PO HS 06/27/22 06/27/22 History tizanidine 4 mg tablet 4 mg PO Q8H PRN Muscle Spasm 06/27/22 06/27/22 History Patient History Medical History (Updated 06/27/22 @ 10:16 by Hiram Portillo DO) RUDY (acute kidney injury) Anemia Benzodiazepine abuse Chronic pain Deep vein thrombosis Delirium Diabetic foot ulcer associated with type 2 diabetes mellitus Diverticulosis DM type 2 (diabetes mellitus, type 2) Dyslipidemia Encephalopathy Femur fracture "S/P repair" History of septic arthritis Hypertension Mood disorder Opiate abuse, continuous NARINDER on CPAP Psychosis Raynaud disease Rhabdomyolysis CPK on admission elevated 1169 Received IVF CPK 859 Surgical History H/O hand surgery History of carpal tunnel surgery S/P left knee arthroscopy Status post total knee replacement, right Family History Other Family history non-contributory Social History Smoking Status: Never smoker Second Hand Exposure: No; Do You Dip or Chew Tobacco: No; Tobacco Cessation Education Requested by Patient: No Hx Alcohol Use: Yes Alcohol type: beer and wine Hx Substance Use: No Preferred Language: Swedish Communication Ability: Effective Infant Toddler Lead Teacher Required: No Beliefs That Will Affect Care: None Current Living Situation: Alone Current Living Situation Comment: home health visits 5 days/40 hrs wk Other Information That Helps Us Care for You: No Feels Safe at Home: Yes Safety Concerns: Feels Safe At This Time Assistive Devices: Crutches Assistive Devices Comment: using cruthces for the past 4 years Physical Exam Physical Exam: On exam patient is supine he exhibits good strength testing bilateral extremities. Sensory is intact. Results & Data ([facility]) Vital Signs (Past 12 Hours) Vital Signs Temp Pulse Pulse Resp BP BP Pulse Ox 06/27/22 08:10 37.1 C 120 H 18 169/88 H 92 06/27/22 07:01 123 H 06/27/22 06:47 126 H 06/27/22 05:54 36.7 C 96 H 18 158/90 H 94 06/27/22 04:53 119 H 14 146/95 H 97 06/27/22 04:53 99 06/27/22 03:41 120 H 20 97 06/27/22 03:06 120 H 20 143/111 H 97 06/27/22 02:41 129 H 148/92 H 06/27/22 02:30 130 H 19 148/92 H 96 06/27/22 01:27 97 06/27/22 00:28 37.5 C 137 H 22 95 06/27/22 00:28 96 06/26/22 23:48 130 H 22 150/90 H 94 06/26/22 22:48 95 06/26/22 22:48 89 L 06/26/22 22:29 37.8 C H 133 H 20 93 O2 Del Method O2 Flow Rate 06/27/22 08:10 Room Air 06/27/22 07:01 06/27/22 06:47 06/27/22 05:54 Room Air 06/27/22 04:53 Room Air 06/27/22 04:53 Room Air 06/27/22 03:41 Room Air 06/27/22 03:06 Nasal Cannula 06/27/22 02:41 06/27/22 02:30 Nasal Cannula 2 06/27/22 01:27 Nasal Cannula 2 06/27/22 00:28 Room Air 06/27/22 00:28 Nasal Cannula 2 06/26/22 23:48 Nasal Cannula 2 06/26/22 22:48 Nasal Cannula 2 06/26/22 22:48 Nasal Cannula 2 06/26/22 22:29 Room Air
[2022-06-27] MEDS ORDERED: LORazepam 0.5 MG TAB PO SCH (11:00)
[2022-06-27] MEDS ORDERED: LORazepam 0.5 MG in SYRINGE 0.25 ML IV ONE (11:30)
--- NOTE | 2022-06-27 12:22 | Magnetic Resonance Report ---
MRI OF THE LUMBAR SPINE WITHOUT CONTRAST CLINICAL HISTORY: Back pain following fall. Recent lumbar spine surgery. COMPARISON STUDY: Lumbar spine MRI July 12, 2018. Lumbar spine CT June 27, 2022. TECHNIQUE: Utilizing a 1.5 Pam magnet and dedicated coil, multiplanar, multiecho imaging of the [facility] spine was performed without IV contrast. FINDINGS: For purposes of numbering on this exam, the L5-S1 disc space is assigned to axial image 27 of 34. Whe n utilizing this numbering scheme, there are postoperative findings consistent with L4-L5 and L5-S1 d iscectomies with interbody spacer placement. Posterior decompression and bilateral screw fusion is no mamta from L4 through S1. Artifact from this hardware compromises visualization of the adjacent tissues . As expected, there is fluid within the operative bed given recent surgery. There is also a small am ount of fluid posterior to the disc spaces at the L4-L5 and L5-S1 levels. This is likely postsurgical . Prominent epidural fat is again noted. Bilateral sacral fractures are noted which involve the S1 an d S2 level. These are better depicted on CT of June 19, 2022. There are also bilateral transverse p rocess fractures at L5. These are obscured by artifact on this exam. There is slight anterolisthesis of L4 and L5 and L5 on S1. Mild edema within the L5, S1 and S2 vertebra is noted. There is no suspici ous marrow replacement. Conus terminates at the upper L1 level. L1-2: Central canal and neural foramen are patent L2-3: Central canal and neural foramen are patent. L3-4: Central canal and neural foramen are patent. L4-5: Posterior decompression is noted. There is mild central canal stenosis, improved since MRI Sept emb2017. Neural foramen are suboptimally assessed due to artifact. There is moderate right and mild to moderate left neural foraminal stenosis. L5-S1: Extensive epidural lipomatosis is again noted. Posterior decompression is present. Neural fora men are suboptimally assessed due to artifact. There is suspected moderate to severe bilateral neural foraminal stenosis. IMPRESSION: 1. Status post L4-L5 and L5-S1 discectomies with posterior decompression and bilateral pedicle screw fusion. As expected, fluid within the operative bed. In addition, small amount of fluid posterior to these disc spaces. This is not unexpected in the early postoperative setting and favors postsurgical change. However, if persistent or progressive symptoms, short-term follow-up MRI is recommended to ex clude the less likely possibility of epidural abscesses or hematomas. 2. Bilateral sacral fractures, as shown on CT. These involve the S1 and S2 levels. Bilateral transver se process fractures of L5 which are obscured by artifact on this exam. Associated marrow edema. 3. Multilevel neural foraminal stenosis, as above. This is suboptimally assessed due to artifact from the surgical hardware. 4. Mild central canal stenosis at L4-L5. Prominent epidural fat at the L5-S1 level. ACT 112: Negative or not required by law. Electronically signed by: Willi Patrick M.D. 06/27/2022 12:20 PM
[2022-06-27] MEDS: oxyCODONE HCL IR 5 MG TAB (IMMEDIATE RELEASE) PO PRN (13:02)
[2022-06-27] MEDS: SODIUM CHLORIDE 0.9% 1000ML 1,000 ML IV SCH (14:58)
[2022-06-27] MEDS: ACETAMINOPHEN 325 MG TAB PO PRN (17:41)
--- NOTE | 2022-06-27 18:07 | Hospitalist Progress Note ---
Date of Service June 27, 2022 Assessment & Plan (1) Sacral fracture: Plan: Sacral Fracture, BL recent Lumbar spine surgery -- Worsening back pain with radiculopathy symptoms post fall -- MRI Lumbar spine noted evaluated by Dr. Portillo- recommend return to [facility] for possible extension of lumbar spine fusion -- Pain control: Oxycotin ER, Oxy IR, PRN Tylenol PDMP queried -- will contact [facility] for patient's transfer tomorrow Mild Rhabdomyolysis: Plan: Traumatic rhabdomyolysis secondary to fall -- crea ok -- continue IV fluids monitor CPK and crea levels Narcotics/multiple neuropsychotropic meds contributory -- outpatient [facility] and PDMP records reviewed hx chronic pain/polysubstance abuse/drug overdose as per records Hyperkalemia secondary to rhabdomyolysis -- 5.6 to 4.4 -- resolved HTN, elevated secondary to discomfort -- monitor hyperlipidemia on statin Rx DM2 on oral medications, well-controlled as of recent hemoglobin A1c of 6.6 last June 21 past tobacco abuse hx ichthyosis congenita chronic pain, polysubstance abuse/drug overdose as per records, ADD/anxiety/mood disorder, at baseline NARINDER n BIPAP history DVT on Coumadin status post IVC filter placement, INR is subtherapeutic currently on weight-based Lovenox Coumadin bridge Rx postop -- Lovenox 100mg SC q12h Postop anemia past tobacco abuse. polypharmacy withdrawal/drug interaction (recurrent admissions), hx chronic pain/ADD/polysubstance abuse as per records PT OT eval once cleared by Orthopedics DVT prophylaxis. Lovenox q12h Full code plan of care discussed with patient in detail and at length all questions answered he is understanding, agreeable, comfortable with the plan of care Admission and Anticipated Discharge Date Admission Date: June 27, 2022 Subjective ff up for s/p fall, sacral fracture, etc seen resting in bed, comfortable YOHAN Sierra at bedside throughout whole encounter states he is having significant pain- requesting to add OxyER at HS, maintain Oxycodone and Tylenol no chest pain, dyspnea, palpitations, dizziness no other symptoms confirms that he is supposed to get Lovenox SC BID no other symptoms Review of Systems Review of Systems: all noted and negative except for above Physical Exam Physical Exam: General- oriented x 3, not in distress, speaks in sentences with no effort or accessory muscle use Eyes- anicteric Neck- no JVD Lungs- clear breath sounds bilaterally, no rales/wheezes Heart- normal rate, regular rhythm; no murmurs Abdomen- normal bowel sounds, nondistended, soft, nontender Extremities- no pretibial edema, no calf tenderness Neuro- alert, oriented x 3; no gross focal neurologic deficits Skin- warm & dry Results & Data Results & Data ([facility]) Vital Signs (Past 12 Hours) Vital Signs Temp Pulse Pulse Resp BP Pulse Ox O2 Del Method 06/27/22 15:55 108 H 06/27/22 15:25 36.7 C 115 H 19 170/80 H 94 Room Air 06/27/22 08:10 37.1 C 120 H 18 169/88 H 92 Room Air 06/27/22 07:01 123 H 06/27/22 06:47 126 H all noted and reviewed including below
[2022-06-27] MEDS ORDERED: lisinopril 40 MG TAB PO STA (18:38)
[2022-06-27] MEDS ORDERED: SOD PHOSPHATE/SOD BIPHOSPHATE ENEMA 132 ML BTL PR PRN (20:24)
[2022-06-27] MEDS: ENOXAPARIN 100 MG/1ML SYR SQ SCH (20:35)
--- NOTE | 2022-06-27 20:57 | Electrocardiogram Report ---
Test Reason : Blood Pressure : / mmHG Vent. Rate : 098 BPM Atrial Rate : 098 BPM P-R Int : 154 ms QRS Dur : 098 ms QT Int : 344 ms P-R-T Axes : 067 045 045 degrees QTc Int : 439 ms Normal sinus rhythm Normal ECG When compared with ECG of 26-JAN-2021 13:01, No significant change was found Confirmed by Mike West ([id number]) on 06/27/2022 8:57:27 PM Referred By: REFERRED SELF Confirmed By:Mike West
[2022-06-27] MEDS ORDERED: AMITRIPTYLINE HCL 25 MG TAB PO SCH (21:00)
[2022-06-27] MEDS ORDERED: oxyCODONE HCL 15 MG TABCR (OxyCONTIN) PO SCH (21:00)
[2022-06-27] MEDS ORDERED: amLODIPine BESYLATE 5 MG TAB PO SCH (21:00)
[2022-06-27] MEDS ORDERED: POLYETHYLENE (MIRALAX) 17 GM PACK PO PRN (21:15)
[2022-06-27] MEDS: DOCUSATE SODIUM/SENNA 50/8.6MG TAB PO SCH (23:15)
[2022-06-28] MEDS: oxyCODONE HCL IR 5 MG TAB (IMMEDIATE RELEASE) PO PRN ×3 (00:25→14:22)
[2022-06-28] MEDS: SODIUM CHLORIDE 0.9% 1000ML 1,000 ML IV SCH (00:59)
[2022-06-28] MEDS ORDERED: KETOROLAC TROMETHAMINE 15 MG/ML VIAL IV ONE (02:37)
[2022-06-28] MEDS: ENOXAPARIN 100 MG/1ML SYR SQ SCH (06:31)
[2022-06-28] MEDS: PANTOprazole 40 MG TAB PO SCH (06:31)
[2022-06-28 06:55] LABS: Basophils # (auto) 0.02 K/uL (0-0.2); Basophils % (auto) 0.3 %; Eosinophils # (auto) 0.09 K/uL (0-0.50); Eosinophils % (auto) 1.5 %; Hemoglobin 10.1 g/dl (14.0-18.0); Immature Granulocytes # (auto) 0.05 K/uL (0.00-0.02); Immature Granulocytes % (auto) 0.8 %; Lymphocytes # (auto) 0.82 K/uL (1.2-3.4); Lymphocytes % (auto) 13.2 %; Mean Corpuscular Hemoglobin 27.2 pg (25.0-34.0); Mean Corpuscular Hgb Conc 32.6 g/dL (32.0-36.0); Mean Corpuscular Volume 83.3 fL (80.0-100.0); Mean Platelet Volume 10.2 fL (9.4-12.4); Monocytes # (auto) 0.47 K/uL (0.24-0.82); Monocytes % (auto) 7.6 %; Neutrophils # (auto) 4.75 K/uL (1.4-6.5); Neutrophils % (auto) 76.6 %; Platelet Count 179 K/uL (130-400); RDW Coefficient of Variation 14.4 % (11.5-14.5); RDW Standard Deviation 43.8 fL (36.4-46.3); Red Blood Count 3.72 M/uL (4.63-6.08)
[2022-06-28 07:16] LABS: BUN Creatinine Ratio 18.8 (10-20); Calcium 8.3 mg/dl (8.5-10.1); Creatinine Clr Calc Pharmacy 107.6 ml/min; Potassium 3.8 mmol/L (3.5-5.1)
[2022-06-28] MEDS: INSULIN ASPART PER UNIT SC SCH ×2 (07:49→11:58)
[2022-06-28] MEDS: DOCUSATE SODIUM/SENNA 50/8.6MG TAB PO SCH (07:56)
[2022-06-28] MEDS: GABAPENTIN 400 MG CAP PO SCH (07:56)
[2022-06-28] MEDS: ACETAMINOPHEN 325 MG TAB PO PRN (07:57)
[2022-06-28] MEDS: METOPROLOL TARTRATE 50 MG TAB PO SCH (07:58)
[2022-06-28] MEDS: FLUoxetine HCL 20 MG CAP PO SCH (07:58)
[2022-06-28] MEDS: LANTUS PER UNIT CHARGE SQ SCH (08:00)
[2022-06-28] MEDS ORDERED: FLUoxetine HCL 10 MG CAP PO SCH (09:00)
--- NOTE | 2022-06-28 14:15 | Hospitalist Progress Note ---
Date of Service June 28, 2022 Assessment & Plan (1) Sacral fracture: Plan: Sacral Fractures, BL recent Lumbar spine surgery -- Worsening back pain with radiculopathy symptoms post fall -- MRI Lumbar spine noted evaluated by Dr. Portillo- recommend return to [facility] for possible extension of lumbar spine fusion -- Pain control: Oxycotin ER, Oxy IR, PRN Tylenol PDMP queried --contacted [facility] Dr Dias - Spinal surgery accepted the patient Mild Rhabdomyolysis: Plan: Traumatic rhabdomyolysis secondary to fall -- crea ok -- continue IV fluids -- cpk 627 -> 309 monitor CPK and crea levels Narcotics/multiple neuropsychotropic meds contributory hx chronic pain/polysubstance abuse/drug overdose as per records -- outpatient [facility] and PDMP records reviewed minimize narcotics history DVT on Coumadin status post IVC filter placement, INR is subtherapeutic currently on weight-based Lovenox Coumadin bridge Rx postop -- Lovenox 100mg SC q12h start coumadin when ok with Ortho SVC Hyperkalemia secondary to rhabdomyolysis -- 5.6 to 4.4 -- resolved HTN, elevated secondary to discomfort -- monitor hyperlipidemia on statin Rx DM2 on oral medications, well-controlled as of recent hemoglobin A1c of 6.6 last June 21 past tobacco abuse hx ichthyosis congenita chronic pain, polysubstance abuse/drug overdose as per records, ADD/anxiety/mood disorder, at baseline NARINDER n BIPAP Postop anemia past tobacco abuse. polypharmacy withdrawal/drug interaction (recurrent admissions), hx chronic pain/ADD/polysubstance abuse as per records DVT prophylaxis. Lovenox q12h Full code Transfer to [facility] plan of care discussed with patient in detail and at length all questions answered he is understanding, agreeable, comfortable with the plan of care Admission and Anticipated Discharge Date Admission Date: June 27, 2022 Subjective ff up sacral fractures, etc seen resting in bed, comfortable upon entering room, patient said "Mikey is there, he is coming here" when asked, patient said Mikey is the one with the walker patient reassured states he still has back pain no leg weakness/numbness no chest pain, dyspnea, palpitations, dizziness no fever/chills no other symptoms during interview, patient was also saying "the staff are attacking me" "they should close this unit" patient reassured states he is ready to transfer to [place] Review of Systems Review of Systems: all noted and negative except for above Physical Exam Physical Exam: General- oriented x 3, not in distress, speaks in sentences with no effort or accessory muscle use Eyes- anicteric Neck- no JVD Lungs- clear BS bilaterally, no rales/wheezes Heart- normal rate, regular rhythm; no murmurs Abdomen- normal bowel sounds, nondistended, soft, nontender Extremities- no pretibial edema, no calf tenderness Neuro- alert, oriented x 3; no gross focal neurologic deficits Skin- warm & dry Results & Data Results & Data ([facility]) Vital Signs (Past 12 Hours) Vital Signs Temp Pulse Pulse Resp BP Pulse Ox O2 Del Method 06/28/22 10:56 36.9 C 96 H 19 166/96 H 93 Room Air 06/28/22 07:14 37.1 C 119 H 20 176/91 H 94 06/28/22 07:00 106 H 06/28/22 03:15 103 H 18 95 06/28/22 03:04 37.1 C 97 H 20 148/82 H 92 BiPAP all noted and reviewed including below
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
== END 2022-06-28 14:27 | disposition short-term general hospital (02) | DRG 964 ==
LOC: ED 22:20 → INTOOBSV 06-27 03:58 → 2S 06-27 03:58